=== PATIENT | female | born 1990 | race Caucasian/White ===

== ENCOUNTER 2019-07-08 02:18 | Inpatient (IN) | payer BC, SELFPAY ==
[2019-07-08] VITALS (47 sets, daily range): BP systolic 107–132; BP diastolic 52–75; PULSE 93–125; RESP 16; TEMP 36.6–37.2; O2SAT 82–100; BMI 46.2
--- NOTE | 2019-07-08 01:54 | HP.PCM_ITS ---
- Problem List (1) 37 weeks gestation of Status: Acute (2) Dichorionic diamniotic twin gestation Status: Acute (3) Hypothyroidism affecting Status: Acute (4) Rh negative state in antepartum period Status: Acute (5) Obesity affecting Status: Acute (6) Positive GBS test Status: Acute History Date of Admission: 07/08/19 Final VENICE: 07/29/19 Gestational age: 37 Weeks and 0 Days History of this : This is a 29 year-old, G 3, P 1011, at 37 weeks gestational age with di/di twins presenting with LOF at home. No vb, regular ctx's. +FM x 2. Surgical History: Surgical History (Last Updated 07/08/19 @ 01:[address] Anjelica Boyce, DO) History of D&C Z98.890 Allergies latex Allergy (Verified 06/24/14 23:10) Rash venom-honey bee [bee venom (honey bee)] Allergy (Verified 06/24/14 23:10) Swelling Home Medications: Home Medications Vits [Prenatabs FA] 1 tablet PO DAILY 06/24/14 Aspirin [Aspirin, Baby] 81 mg PO DAILY 07/08/19 Docusate Sodium [Colace] 100 mg PO DAILY 07/08/19 Thyroid,Pork [[place] Thyroid] 120 mg PO DAILY 07/08/19 Smoking Status: Never smoker Number of Fetus(es): 2 NST - FHR Rate Baby A Baseline: 150 Variability:: Moderate Accelerations:: None Decelerations:: None Uterine Activity:: No regular ctx's - FHR Rate Baby B Baseline: 150 Variability:: Moderate Accelerations:: None Decelerations:: None History Past Pregnancies: Past Pregnancies Delivery Date Name GA/ Weeks Outcome Route Wt Sex Labor Length Anesthesia Delivery Location Provider FOB 40 8 partial molar D&C Labs: GBS pos 3 hr GTT wnl Ab screen neg Hgb 11.5, Plt 308 Sequential screen neg Syphilis NR RI Hep B neg HIV NR Hep C neg GC/CT neg UDS neg Expected Infant Delivery Method: Spontaneous Vaginal Review of Systems Gynecological: Reports: - - +SROM for clear fluid about 2 hours ago. No VB, ctx. +FM x 2 Physical Exam Vitals: Vital Signs Pulse BP 118 H 131/71 H 07/08/19 01:49 07/08/19 01:49 General: Alert, No apparent distress HEENT: Atraumatic Abdomen: Soft, Non Tender, Gravid Extremities:: No edema Neurological: Neuro grossly intact GRAINER MACHINE: Normal external genitalia Assessment/Plan All Active Problems 37 weeks gestation of (Acute) Dichorionic diamniotic twin gestation (Acute) Hypothyroidism affecting (Acute) Rh negative state in antepartum period (Acute) Obesity affecting (Acute) Positive GBS test (Acute) This is a 29 year-old, with di/di twin at 37 wk gestation admitted with SROM for clear fluid at home. - Admit for routine intrapartum care - Most recent ultrasound: Baby A vertex with EFW 5lb 2 oz, Baby B breech with EFW 4 lb 11 oz, 8.3% EFW discordance - Epidural - PCN for GBS positive - Discussed risks of a breech vaginal delivery including but not limited to cord prolapse, head entrapment, injury, asphyxia. Discussed risks of a section including bleeding, infection, injury to surrounding organs. After discussion of r/b/a to a vaginal delivery with breech extraction of baby B and of a section, the patient desires to proceed with vaginal delivery and is comfortable with breech extraction of baby B - Will place intracervical saunders and start pit gtt
[2019-07-08 02:23] LABS: ROM Internal Control Test YES-OK TO RESULT pt. (Internal QC)
[2019-07-08 02:24] LABS: ROM Patient Test POSITIVE (Negative)
[2019-07-08] MEDS: Lactated Ringers 1,000 ML 50 ML IV (02:38)
[2019-07-08 02:52] LABS: Absolute Lymphocyte Count 2.97 X10^3/uL (0.83-4.51); Absolute Neutrophil Count 9.9 X10^3/uL (2.0-7.7); Basophil# 0.05 X10^3/uL; Basophil% 0.3 % (0-1); Eosinophil# 0.38 X10^3/uL; Eosinophils% 2.6 % (0-5); Hematocrit 32.1 % (37-47); Hemoglobin 9.9 g/dL (12.0-15.0); Lymphocyte # 2.97 X10^3/ul (4.0); Lymphocyte % 20.6 % (19-41); Mean Corp Hgb Conc 30.8 g/dL (32-36); Mean Corpuscular Hgb 23.4 pg (27.0-32.0); Mean Corpuscular Volume 75.9 fL (81-99); Mean Platelet Vol. 9.7 fl (6.2-12.0); Monocyte# 0.99 X10^3/uL; Monocyte% 6.9 % (0-10); NRBC Flagged by Analyzer 0 % (0-5); Neutrophil # 9.91 X10^3/uL (2.7-7.7); Neutrophil % 68.8 % (47-70); Platelet Count 264 K/mm3 (150-450); RBC Distribution Width CV 14.6 % (11.6-14.6); RBC Distribution Width SD 39.8 fl (35.1-43.9); Red Blood Count 4.23 M/mm3 (4.2-5.4); White Blood Count 14.4 K/mm3 (4.4-11.0)
[2019-07-08] MEDS: 0.9% Normal Saline Single 100 ML IV.SOLN. IY (03:30)
--- NOTE | 2019-07-08 03:31 | PCM.PN.BLA ---
Progress Note Cvx 1.5/60/-3, vertex. Intracervical saunders placed in usual fashion. Pt tolerated procedure well. STROKE Vital Signs/Narrative: Vital Signs Temp Pulse BP Pulse Ox 07/08/19 01:49 118 H 131/71 H 07/08/19 01:48 97.8 F 99
[2019-07-08] MEDS: Oxytocin 30 units/NS 500 ml 30 UNITS/500 ML IV.SOLN IV (03:38)
[2019-07-08] MEDS: Lactated Ringers 500 ML 999 ML IV ×2 (05:26→07:25)
[2019-07-08] MEDS: fentaNYL-bupivacaine (epidural) 100 ML BAG EPIDURAL (06:34)
[2019-07-08] MEDS: Ondansetron 4 MG/2 ML Vial IV (07:55)
--- NOTE | 2019-07-08 08:30 | PCM.PN.BLA ---
Progress Note At bedside to check on pt. Comfortable with epidural. After epidural baby B was having later decelerations, which have resolved with resuscitative measures. Cvx 5 cm dilated. FHT Category 1 of baby A, and Category 2 of baby B. Continue current management and anticipate vaginal delivery. STROKE Vital Signs/Narrative: Vital Signs Temp Pulse BP Pulse Ox 07/08/19 07:46 98.9 F 07/08/19 07:36 112 H 112/55 L 07/08/19 07:35 110 H 100 07/08/19 07:30 93 100 07/08/19 07:25 115 H 100 07/08/19 07:20 111 H 100 07/08/19 07:15 108 H 100 07/08/19 07:10 101 H 100 07/08/19 07:05 110 H 123/55 H 100 07/08/19 07:00 111 H 128/58 H 100 07/08/19 06:55 103 H 100 07/08/19 06:50 125 H 127/59 H 100 07/08/19 06:46 117 H 131/59 H 07/08/19 06:45 99 07/08/19 06:40 98 132/60 H 99 07/08/19 06:35 119 H 124/57 H 98 07/08/19 06:31 107 H 132/60 H 07/08/19 06:29 110 H 97 07/08/19 06:25 100 120/72 07/08/19 06:24 105 H 97 07/08/19 06:20 108 H 122/75 H 07/08/19 06:19 97 07/08/19 06:14 114 H 97 07/08/19 06:01 103 H 129/70 H 07/08/19 06:00 98.2 F 99 07/08/19 04:50 97 127/74 H 07/08/19 04:49 98.0 F 98
[2019-07-08] MEDS: Oxytocin 30 units/NS 500 ml 30 UNITS/500 ML IV.SOLN 334 UNITS IV (09:43)
--- NOTE | 2019-07-08 10:00 | PCM.OPRPT ---
Problem List (1) 37 weeks gestation of Status: Acute (2) Dichorionic diamniotic twin gestation Status: Acute (3) Hypothyroidism affecting Status: Acute (4) Rh negative state in antepartum period Status: Acute (5) Obesity affecting Status: Acute (6) Positive GBS test Status: Acute Report of Operation Date of Procedure: 07/08/19 Pre-Operative Diagnosis: 37 week gestation, di/di twin gestation, PROM Post-Operative Diagnosis: As above Surgery/Procedure Performed:: with breech extraction of baby B Description of Surgical Findings:: Baby A in vertex presentation. Baby B in footling breech presentation. Clear fluid x 2. Normal appearing placenta with 3 VC's. Type of Anesthesia:: Epidural Special Medications: None Specimen's removed: Placenta Drains: None Estimated Blood Loss (mL): 250 Description of Procedure: The patient was noted to be complete. She was taken back to the operating room for delivery. A transabdominal ultrasound was performed noting baby A in vertex presentation baby B in footling breech presentation. Dr. Moreno was present for assistance with the delivery. With a few pushes, the head of baby A was delivered in occiput anterior position. The anterior shoulder, posterior shoulder, followed by the body of infant was delivered without any force or delay. A viable male infant was delivered atraumatically and placed on maternal abdomen. The cord was clamped and cut after a 60 sec delay. An ultrasound was then performed noting baby B in breech presentation. A gentle external cephalic version was attempted, but this was unable to be achieved easily therefore it was aborted. The patient again gave verbal consent for breech extraction of baby B. The feet of baby B were grasped and the amniotic membranes were ruptured for clear fluid. With good maternal pushing effort, gentle traction was placed and the legs of baby B. The legs, torso, left arm, right arm, followed by head of the infant were delivered without any force or delay. Viable female infant was delivered atraumatically and placed on maternal abdomen. The cord was clamped and cut after about a 30 sec delay. With fundal massage the placenta was delivered intact. Uterus was explored x1. Fundus was firm and bleeding hemostatic. No lacerations were noted. Grafts/Implants Used: None - Complications None - Admit VTE Documentation VTE Present on Admission: No VTE Mechan Device Prophylaxis: SCD's Vaginal Delivery Maternal Presentation: Spontaneous Rupture of Membranes Method of Induction: Pitocin, [place] Bulb Surgery/ Procedure Performed: Spontaneous Vaginal Delivery Type of Anesthesia: Epidural Cord Entanglement: None Episiotomy Description: None Laceration: None Medications given after delivery: IV Pitocin Complications: None
[2019-07-08] MEDS: 0.9% Saline Lock 10 ML Syringe IV (12:15)
[2019-07-08] MEDS: Ibuprofen 600 MG Tablet PO (14:40)
[2019-07-09] VITALS (11 sets, daily range): BP systolic 113–123; BP diastolic 56–70; PULSE 86–99; RESP 16–18; TEMP 36.4–36.9; O2SAT 96–98
[2019-07-09] MEDS: Ibuprofen 600 MG Tablet PO ×3 (00:54→23:18)
[2019-07-09] MEDS: Thyroid 60 MG Tablet 120 MG PO (06:46)
--- NOTE | 2019-07-09 09:02 | PCM.PN.OB ---
Patient Problems: Active and Suspected Problems 37 weeks gestation of (Acute) Dichorionic diamniotic twin gestation (Acute) Hypothyroidism affecting (Acute) Rh negative state in antepartum period (Acute) Obesity affecting (Acute) Positive GBS test (Acute) Subjective: Doing well per pateitn and nursing staff. Ambulating and taking PO without difficulty. Voiding and passing flatus. Pain controlled. Tandum . Denies any headaches, visual changes, chest pain, shortness of breath, leg pain or increased vaginal clots. Lochia normal. Planning D/C home tomorrow. Objective: Vital Signs - 24 hr 07/08/19 20:24 07/08/19 20:33 07/09/19 00:00 Temperature 98.1 F 98.1 F Pulse Rate 94 98 91 Respiratory Rate 16 16 Blood Pressure 132/60 H Blood Pressure [BP] 132/60 H 113/70 Pulse Ox 98 98 98 07/09/19 00:14 07/09/19 00:15 07/09/19 03:15 Temperature 98.0 F Pulse Rate 91 93 99 Respiratory Rate 16 Blood Pressure 113/70 Blood Pressure [BP] 120/63 Pulse Ox 98 96 07/09/19 03:54 07/09/19 07:28 07/09/19 07:45 Temperature 98.4 F Pulse Rate 94 86 86 Respiratory Rate 18 Blood Pressure 120/63 120/70 Blood Pressure [BP] 120/70 Pulse Ox 98 07/09/19 14:16 07/09/19 14:20 Temperature 98.2 F Pulse Rate 89 90 Respiratory Rate 18 Blood Pressure 123/56 H Blood Pressure [BP] 123/56 H Pulse Ox 96 - Physical Exam Vitals/I&O's: Vital Signs Temp Pulse Resp BP Pulse Ox 98.4 F 86 18 120/70 98 07/09/19 07:45 07/09/19 07:45 07/09/19 07:45 07/09/19 07:45 07/09/19 07:45 Oxygen Delivery Method Room Air Weight: 278 lb Body Mass Index (BMI) 46.2 Intake and Output for Last 24 Hours 07/07/19 07/08/19 07/09/19 23:59 23:59 23:59 Intake Total 2680.70 / 2680.70 Output Total 2850 / 2850 Balance -169.30 / -169.30 General: Alert, Oriented x3, Cooperative HEENT: Atraumatic, Normocephalic Neck: Trachea Midline Lungs: Clear to auscultation, Normal air movement, No rhonchi, No wheeze Cardiovascular: Regular rate, Regular Rhythm, No murmurs Abdomen: Bowel Sounds Present, Soft - Fundus firm 2 below U Extremities: Edema - +1 non pitting bilaterally Psych/Mental Status: Normal Affect, Appropriate Microbiology Past 72 Hours 07/08/19 02:45 Mucosa - Nasopharyngeal Coronavirus COVID-19 PCR - Final Laboratory Results 07/08/19 13:30: Screen NEGATIVE, Baby's Blood Type A POSITIVE, Baby's JACOB NEGATIVE Current Medications Acetaminophen (Tylenol) 1,000 mg PO Q8H PRN PRN PRN Reason: Pain Score 1-3/10 Bisacodyl (Dulcolax) 10 mg RECTAL UD PRN PRN Reason: If no BM Dibucaine (Dibucaine) 1 applic TOPICAL TID PRN PRN; Protocol PRN Reason: Discomfort Hydrocortisone (Hytone) 1 applic TOPICAL TID PRN PRN; Protocol PRN Reason: Discomfort Ibuprofen (Motrin) 600 mg PO Q6H PRN PRN PRN Reason: Pain Score 1-3/10 Last Admin: 07/09/19 00:54 Dose: 600 mg Documented by: Methylergonovine Maleate (Methergine) 0.2 mg IM X1 PRN PRN Reason: Excess bleeding/uterine atony Ondansetron HCl (Zofran) 4 mg IV Q4H PRN PRN PRN Reason: Nausea Senna/Docusate Sodium (Senokot-S, [place]-Colace) 1 - 2 tablet PO DAILY PRN PRN PRN Reason: Constipation Simethicone (Mylicon) 80 mg PO PCHS PRN PRN Reason: Indigestion/Stomach pain Sodium Chloride () 5 - 15 ml IV UD PRN PRN Reason: SALINE FLUSH Last Admin: 07/08/19 12:15 Dose: 10 ml Documented by: Thyroid ([place] Thyroid) 120 mg PO DAILY@0600 ANASTASIYA Last Admin: 07/09/19 06:46 Dose: 120 mg Documented by: Medical Necessity - Tobacco Use Smoking Status: Never smoker Assessment/Plan All Active Problems 37 weeks gestation of (Acute) Dichorionic diamniotic twin gestation (Acute) Hypothyroidism affecting (Acute) Rh negative state in antepartum period (Acute) Obesity affecting (Acute) Positive GBS test (Acute) A:PPD #1 of Di/DI twins P: 1) Routine care 2) 3) Pain management 4) Vitals stable 5) Repeat CBC in am 6) Planning D/C home tomorrow.
[2019-07-09] MEDS: Senna/Docusate Sodium 1 Tablet PO (23:17)
[2019-07-10] VITALS (7 sets, daily range): BP systolic 120–127; BP diastolic 60–77; PULSE 87–105; RESP 14–16; TEMP 36.7–37.2; O2SAT 97–98
[2019-07-10] MEDS: Thyroid 60 MG Tablet 120 MG PO (05:32)
[2019-07-10 05:49] LABS: Absolute Lymphocyte Count 3.36 X10^3/uL (0.83-4.51); Basophil# 0.06 X10^3/uL; Basophil% 0.5 % (0-1); Eosinophil# 0.58 X10^3/uL; Eosinophils% 4.5 % (0-5); Hematocrit 31.9 % (37-47); Hemoglobin 9.6 g/dL (12.0-15.0); Lymphocyte # 3.36 X10^3/ul (4.0); Mean Corp Hgb Conc 30.1 g/dL (32-36); Mean Corpuscular Hgb 23.2 pg (27.0-32.0); Mean Corpuscular Volume 77.2 fL (81-99); Monocyte% 6.2 % (0-10); NRBC Flagged by Analyzer 0 % (0-5); Neutrophil # 8.03 X10^3/uL (2.7-7.7); Neutrophil % 62.3 % (47-70); Platelet Count 256 K/mm3 (150-450); RBC Distribution Width CV 15.2 % (11.6-14.6); RBC Distribution Width SD 41.7 fl (35.1-43.9); Red Blood Count 4.13 M/mm3 (4.2-5.4); White Blood Count 12.9 K/mm3 (4.4-11.0)
--- NOTE | 2019-07-10 08:43 | PN.OBGYN_ITS ---
Patient Problems: Active and Suspected Problems 37 weeks gestation of (Acute) Dichorionic diamniotic twin gestation (Acute) Hypothyroidism affecting (Acute) Rh negative state in antepartum period (Acute) Obesity affecting (Acute) Positive GBS test (Acute) Subjective: Doing well. Denies any complaints. Ambulating and voiding without difficulty. Lochia normal. Breast-feeding. Tolerating regular diet without nausea or vomiting. She denies lightheadedness, dizziness, chest pain, shortness of br eath, leg pain. Desires to go home today. - Physical Exam Vitals/I&O's: Vital Signs Temp Pulse Resp BP Pulse Ox 99.0 F 88 14 121/60 H 96 07/10/19 01:18 07/10/19 01:18 07/10/19 01:18 07/10/19 01:18 07/09/19 14:20 Oxygen Delivery Method Room Air Weight: 278 lb Body Mass Index (BMI) 46.2 Intake and Output for Last 24 Hours 07/08/19 07/09/19 07/10/19 23:59 23:59 23:59 Intake Total 2680.70 / 2680.70 Output Total 2850 / 2850 Balance -169.30 / -169.30 General: Alert, No apparent distress HEENT: Atraumatic Abdomen: Non-Distended, Obese Extremities: No Calf Tenderness Skin: No rashes Neurological: Neuro grossly intact Psych/Mental Status: Normal Affect, Appropriate Microbiology Past 72 Hours 07/08/19 02:45 Mucosa - Nasopharyngeal Coronavirus COVID-19 PCR - Final Laboratory Results 07/10/19 05:40: WBC 12.9 H, RBC 4.13 L, Hgb 9.6 L, Hct 31.9 L, MCV 77.2 L, MCH 23.2 L, MCHC 30.1 L, RDW Std Deviation 41.7, RDW Coeff of Orxy 15.2 H, Plt Count 256, MPV 10.0, Immature Gran % (Auto) 0.500, Neut % (Auto) 62.3, Lymph % (Auto) 26.0, [place] % (Auto) 6.2, Eos % (Auto) 4.5, Baso % (Auto) 0.5, Absolute Neuts (auto) 8.0 H, Absolute Lymphs (auto) 3.36, Nucleated RBC % 0 Current Medications Acetaminophen (Tylenol) 1,000 mg PO Q8H PRN PRN PRN Reason: Pain Score 1-3/10 Bisacodyl (Dulcolax) 10 mg RECTAL UD PRN PRN Reason: If no BM Dibucaine (Dibucaine) 1 applic TOPICAL TID PRN PRN; Protocol PRN Reason: Discomfort Hydrocortisone (Hytone) 1 applic TOPICAL TID PRN PRN; Protocol PRN Reason: Discomfort Ibuprofen (Motrin) 600 mg PO Q6H PRN PRN PRN Reason: Pain Score 1-3/10 Last Admin: 07/09/19 23:18 Dose: 600 mg Documented by: Methylergonovine Maleate (Methergine) 0.2 mg IM X1 PRN PRN Reason: Excess bleeding/uterine atony Ondansetron HCl (Zofran) 4 mg IV Q4H PRN PRN PRN Reason: Nausea Senna/Docusate Sodium (Senokot-S, [place]elam-Colace) 1 - 2 tablet PO DAILY PRN PRN PRN Reason: Constipation Last Admin: 07/09/19 23:17 Dose: 1 tablet Documented by: Simethicone (Mylicon) 80 mg PO PCHS PRN PRN Reason: Indigestion/Stomach pain Sodium Chloride () 5 - 15 ml IV UD PRN PRN Reason: SALINE FLUSH Last Admin: 07/08/19 12:15 Dose: 10 ml Documented by: Thyroid ([place] Thyroid) 120 mg PO DAILY@0600 ANASTASIYA Last Admin: 07/10/19 05:32 Dose: 120 mg Documented by: Medical Necessity - Tobacco Use Smoking Status: Never smoker Assessment/Plan All Active Problems 37 weeks gestation of (Acute) Dichorionic diamniotic twin gestation (Acute) Hypothyroidism affecting (Acute) Rh negative state in antepartum period (Acute) Obesity affecting (Acute) Positive GBS test (Acute) Patient is day 2 from a vaginal delivery of di-di-twins. She is doing well and meeting all milestones to go home. She desires to go home. Discharge instructions reviewed. Is breast-feeding both babies are doing well. plans for vasectomy.
--- NOTE | 2019-07-10 08:44 | DCINST_ITS ---
Discharge Diet: No Restrictions Discharge Activity: May Shower, May Take a Tub Bath May resume sexual activity in: 6 weeks Ice area for (Minutes): 15 Weight Bearing Status: Weight bearing as tolerated Lifting Restrictions: None Call your doctor if you observe: Fever of 101 or Higher, Inability to urinate, Inability to have a bowel movement, Using more than one pad per hour, Shortness of breath, Dizziness, Fainting spells, Chest pain, Increased palpitations (irregular heartbeat), Calf discomfort, Uncontrolled pain Additional Instructions: If you experience any of the following, contact your healthcare provider. * Bleeding that soaks a pad every hour for 2 hours * Fever 100.4 or higher * Unrelieved incision or abdominal pain * Swelling, redness, discharge or bleeding from your incision or episiotomy site * Your incision begins to separate * Problems urinating (including inability to urinate or burning while urinating). * Visual changes * Severe headache * Flu-like symptoms * Pain or redness in one of both of your breasts * Pain, warmth, tenderness or swelling in your legs, especially the calf area * Frequent nausea and vomiting * Symptoms of depression or anxiety If you experience any of the following, call 911 or go to the nearest Emergency Room. * Chest pain * Problems breathing * Seizure activity * Partial or complete paralysis of a body part, slurred speech, weakness or drooping of the face, or a sudden inability to walk or hold your balance Allergies/Adverse Reactions: Allergies latex Allergy (Verified 07/08/19 02:01) Rash venom-honey bee [bee venom (honey bee)] Allergy (Verified 07/08/19 02:01) Swelling Medications to take at Discharge Vits [Prenatabs FA] 1 tablet PO DAILY 06/24/14 Aspirin [Aspirin, Baby] 81 mg PO DAILY 07/08/19 Docusate Sodium [Colace] 100 mg PO DAILY 07/08/19 Thyroid,Pork [[place] Thyroid] 120 mg PO DAILY 07/08/19 When: In 6 weeks for visit. Can also schedule a 1-2 week virtual visit. Primary Care Physician: Miguelito Champion DO [Primary Care Provider] - Test Results: Test results from this visit will be discussed in further detail at your follow- up appointment, if applicable.
== END 2019-07-10 13:00 | disposition home or self-care (01) | DRG 807 ==
LOC: WPOUT 02:23 → WP 02:23
PROVIDERS: Advanced Practice Midwife; Admitting Provider Obstetrics & Gynecology; PCP Student in an Organized Health Care Education/Training Program; Referring Provider Obstetrics & Gynecology; Visit Provider Obstetrics & Gynecology
DX: O30.043 Twin pregnancy, dichorionic/diamniotic, third trimester (principal); O32.8XX2 Maternal care for other malpresentation of fetus, fetus 2; O99.824 Streptococcus B carrier state complicating childbirth; O76 Abnormality in fetal heart rate and rhythm complicating labor and delivery; O99.284 Endocrine, nutritional and metabolic diseases complicating childbirth; E03.9 Hypothyroidism, unspecified; O99.214 Obesity complicating childbirth; E66.9 Obesity, unspecified; Z79.82 Long term (current) use of aspirin; Z3A.37 37 weeks gestation of pregnancy; Z67.91 Unspecified blood type, Rh negative; Z37.2 Twins, both liveborn
CPT/HCPCS: 59025; 59050; 76815; 84112; 85025; 85461; 86850; 86870; 86900; 86901; 87635; 90384; 99218; G2023; J7120; A4216; G0378; J2405; J2790; U0004

== ENCOUNTER 2024-12-23 22:26 | Outpatient (CLI) | payer OTHER, SELFPAY ==
--- OUTSIDE RECORDS SUMMARY | 2024-12-23 22:34 | XMS RPT_ITS | CCD ---
Author Organization [facility] Care Team Providers Care Resident Physician Name Role Phone Miguelito Champion DO Primary Care Provider [phone] Miguelito Champion DO Primary Care Provider Azar GROUTER HELPER.CLINICAL THERAPISTKaren Unavailable Manju GROUTER HELPER.CLINICAL THERAPISTHumberto Unavailable Shorty GROUTER HELPER.CLINICAL THERAPISTKendal Unavailable Joe Boyce Attending Unavailable Joe Boyce Referring Unavailable Champion, Miguelito Primary Care Unavailable Joe Boyce Admitting Unavailable CHAMPION, MIGUELITO L Primary Care Unavailable CHAMPION, MIGUELITO Harshal Referring Unavailable FREYA VELAZQUEZ Attending Unavailable APRIL, JOSSIE Referring Unavailable CHAMPION, MIGUELITO L Primary Care Unavailable CHAMPION, MIGUELITO L Primary Care Unavailable KHOI, SHILOH Referring Unavailable APRIL, JOSSIE Referring Unavailable HCAMPION, MIGUELITO L Primary Care Unavailable CHAMPION, MIGUELITO L Primary Care Unavailable KHOI, SHILOH Referring Unavailable APRIL, JOSSIE Referring Unavailable CHAMPION, MIGUELITO L Primary Care Unavailable KRISTEN SMITH Attending Unavailable APRIL, JOSSIE Referring Unavailable CHAMPION, MIGUELITO L Primary Care Unavailable LAUREN MADERA Attending Unavailable KAREN AZAR Referring Unavailabl e CHAMPION, MIGUELITO Harshal Primary Care Unavailable CHAMPION, MIGUELITO L Primary Care Unavailable CHAMPION, MIGUELITO L Attending Unavailable CHAMPION, MIGUELITO L Referring Unavailable CHAMPION, MIGUELITO L Primary Care Unavailable KHOI, SHILOH Referring Unavailable JOE BOYCE Attending Unavailable CHAMPION, MIGUELITO L Primary Care Unavailable KHOI, SHILOH Referring Unavailable CHAMPION, MIGUELITO L Primary Care Unavailable CHAMPION, MIGUELITO L Primary Care Unavailable DENAE RENTERIA Attending Unavailable KRISTEN SMITH Referring Unavailable CHAMPION, MIGUELITO L Primary Care Unavailable KRISTEN SMITH Referring Unavailable KHOI, SHILOH Referring Unavailable WISWELL, JOE Attending Unavailable CHAMPION, MIGUELITO L Primary Care Unavailable APRIL, JOSSIE Referring Unavailable CHAMPION, MIGUELITO L Primary Care Unavailable CHAMPION, MIGUELITO L Primary Care Unavailable KRISTEN SMITH Attending Unavailable WISWELL, JOE Referring Unavailable CHAMPION, MIGUELITO L Primary Care Unavailable CHAMPION, MIGUELITO L Primary Care Unavailable CHAMPION, MIGUELITO L Referring Unavailable CHAMPION, MIGUELITO L Primary Care Unavailable CHAMPION, MIGUELITO L Referring Unavailable APRIL, JOSSIE Referring Unavailable WISWELL, JOE Attending Unavailable CHAMPION, MIGUELITO L Primary Care Unavailable APRIL, JOSSIE Referring Unavailable CHAMPION, MIGUELITO L Primary Care Unavailable WISWELL, JOE Attending Unavailable CHAMPION, MIGUELITO L Primary Care Unavailable CHAMPION, MIGUELITO L Primary Care Unavailable LONI, KRISTEN Attending Unavailable APRIL, JOSSIE Referring Unavailable CHAMPION, MIGUELITO L Primary Care Unavailable CHAMPION, MIGUELITO L Referring Unavailable CHAMPION, MIGUELITO L Primary Care Unavailable KHOI, SHILOH Attending Unavailable CHAMPION, MIGUELITO L Primary Care Unavailable CHAMPION, MIGUELITO L Primary Care Unavailable CHAMPION, MIGUELITO L Referring Unavailable KAREN AZAR Referring Unavailabl e CHAMPION, MIGUELITO L Primary Care Unavailable Allergies Allergy Classification Reported Allergen(s) Allergy Type Date of Onset Reaction(s) Facility Latex (1 source) Latex Substance Allergy 9 [facility] (20 sources) Latex; Translations: [LATEX] Propensity to adverse reactions 9 [facility] Work Phone: (20 sources) Bees; Translations: [BEES] Propensity to adverse reactions 9 [facility] Work Phone: (1 source) Latex Drug allergy (disorder) 0 [facility] (1 source) venom-honey bee Drug allergy (disorder) 0 [facility] Medications Current Medications Medication Drug Class(es) Dates Sig (Normalized) Sig (Original) aspirin 81 mg delayed release oral tablet (20 sources) Platelet Aggregation Inhibitor, Nonsteroidal Anti-inflammatory Drug Start: 05-23-2024 take 1 tablet by mouth once daily aspirin, enteric coated (ECOTRIN LOW STRENGTH) 81 mg EC tablet Indications: with uncertain dates in first trimester (HCC) Take 1 tablet by mouth once daily. 90 tablet 3 05/23/2024 Active End: 08-04-2022 take 1 tablet by mouth once daily aspirin, enteric coated (ASPIRIN, ENTERIC COATED) 81 mg EC tablet Take 81 mg by mouth once daily. 08/04/2022 Discontinued Comment on above: Take 81 mg by mouth once daily. cephalexin 500 mg oral capsule (1 source) Cephalosporin Antibacterial Start: 06-14-19 End: 06-21-19 take 1 capsule by mouth three times daily cephALEXin (KEFLEX) 500 mg capsule Take 1 capsule by mouth three times daily for 7 days. 21 capsule 0 06/13/2022 06/20/2022 Active Comment on above: Take 1 capsule by [facility] three times daily for 7 days. cetirizine hydrochloride 10 mg oral tablet (20 sources) Histamine-1 Receptor Antagonist Start: 06-13-19 cetirizine (ZYRTEC) 10 mg tablet 06/13/2023 Active L.acid,para-B.bifidum- S.therm (QUAD-PROBIOTIC) 8 billion cell cap (20 sources) take 8 capsules by mouth once daily L.acid,para-B.bifi dum-S.therm (QUAD-PROBIOTIC) 8 billion cell cap Take by mouth once daily. Active take 8 capsules by m outh once daily L.acid,para-B.bifidum-S.therm (QUAD-PROB IOTIC) 8 billion cell cap Take by mouth once daily. 0 Active magnesium oxide 500 mg oral tablet (20 sources) take 1 tablet by mouth once daily Magnesium Oxide 500 mg magnesium tab Take 500 mg by mouth once daily. Active NALTREXONE HCL, BULK, MISC (14 sources) End: 07-21-2023 NALTREXONE HCL, BULK, MISC 1 tablet once daily. 6 mg compound 0 07/21/2023 Discontinued NALTREXONE HCL, BULK, MISC 1 tablet once daily. 6 mg compound 0 Active Comment on above: 1 tablet once daily. 6 mg compound PNV no.95/ferrous fum/folic ac ( ORAL) (20 sources) take 2 capsules by mouth once daily before mealtime PNV no.95/ferrous fum/folic ac ( ORAL) Take 2 capsules by mouth once daily. Active thyroid (detention) 120 mg oral tablet (20 sources) Start: 10-16-2024 thyroid ([employer]CH[employer] THYROID) 120 mg tablet Take 1 tablet PO 3 days a week and 2 tablets PO 4 days a week 90 tablet 3 10/16/2024 Active Start: 08-23-2024 End: 10-11-2024 thyroid (LAB[employer]CHARD THYROID) 120 mg tablet Take 1 tablet PO 3 days a week and 2 tablets PO 4 days a week 08/23/2024 10/11/2024 Discontinued Start: 07-15-2024 End: 08-23-2024 thyroid (LABORER ORCHARD THYROID) 120 mg tablet Take 1 tablet PO 4 days a week and 2 tablets PO 3 days a week 07/15/2024 08/23/2024 Discontinued Start: 05-26-2024 End: 07-15-2024 thyroid (LABOR[employer] ORCHARD THYROID) 120 mg tablet Take 1 tablet PO 5 days a week and 2 tablets PO 2 days a week 140 tablet 3 05/26/2024 07/15/2024 Discontinued Start: 04-02-2023 End: 05-26-2024 take 2 tablets by mouth once daily LAB[employer]CHARD THYROID 60 mg tablet Indications: Acquired hypothyroidism TAKE 2 TABLETS BY MOUTH EVERY DAY 180 tablet 3 04/14/2024 05/26/2024 Discontinued Start: 09-25-2022 End: 03-31-2023 take 2 tablets by mouth once daily [employer] THYROID 60 mg tablet Indications: Acquired hypothyroidism TAKE 2 TABLETS BY MOUTH EVERY DAY 60 tablet 3 10/13/2022 03/31/2023 Discontinued Start: 07-05-2022 End: 09-25-2022 LABOR[employer] ORCHARD THYROID 60 mg tablet Silvia cations: Acquired hypothyroidism Take 1 tablet 2 days a week and 2 tablets 5 days a week 144 tablet 3 07/05/2022 09/25/2022 Discontinued Start: 07-08-2021 End: 07-05-2022 LABOR[employer] ORCHARD THYROID 60 mg tablet Silvia cations: Acquired hypothyroidism Take 1 tablet 4 days a week and 2 tablets 3 days a week 120 tablet 2 12/09/2021 07/05/2022 Discontinued Start: 06-15-2021 LABORER ORCHARD THYROID 60 mg Indications: Acquired hypothyroidism Take 1 tablet 5 days a week and 2 tablets 2 days a week 108 tablet 1 06/15/2021 Active Start: 05-23-2021 End: 06-13-2021 LABORER ORCHARD THYROID 60 mg Indications : Acquired hypothyroidism Take 1 tablet 5 days a week and 2 tablets 2 days a week 108 tablet 1 05/23/2021 06/13/2021 Discontinued Start: 05-18-2021 End: 05-21-2021 LABOR[employer] ORCHARD THYROID 60 mg Indications : Acquired hypothyroidism Take 1 tablet 5 days a week and 2 tablets 2 days a week 34 tablet 0 05/18/2021 05/21/2021 Discontinued Start: 05-02-2021 End: 05-18-2021 LABORER ORCHARD THYROID 60 mg Indications : Acquired hypothyroidism Take 1 tablet 1 days a week and 2 tablets 6 days a week 28 tablet 0 05/04/2021 05/18/2021 Discontinued Start: 01-14-2020 End: 04-29-2021 LABORER ORCHARD THYROID 60 mg Indications : Acquired hypothyroidism Take 1 tablet 1 days a week and 2 tablets 6 days a week 28 tablet 0 08/30/2020 04/29/2021 Discontinued Comment on above: Take 1 tablet 1 days a week and 2 tablets 6 days a week Take 1 tablet 5 days a week and 2 tablets 2 days a week Take 1 tablet 4 days a week and 2 tablets 3 days a week Take 1 tablet 2 days a week and 2 tablets 5 days a week Take 2 tablets daily . TAKE 2 TABLETS BY [facility] EVERY DAY Completed/Discontinued Medications Medication Drug Class(es) Dates Sig (Normalized) Sig (Original) biotin 10 mg oral capsule (13 sources) End: 08-04-2022 Biotin 10,000 mcg cap 08/04/2022 Discontinued Breast Pump (1 source) Start: 05-30-2019 End: 05-29-2020 Breast Pump Use as directed 1 Each 05/30/2019 05/29/2020 cholecalciferol 0.05 mg oral capsule (20 sources) Vitamin D End: 05-23-2024 Cholecalciferol, Vitamin D3, 50 mcg (2,000 unit) cap Take by mouth once daily. 05/23/2024 Discontinued Comment on above: Take by mouth once d aily. clotrimazole 10 mg/ml topical cream (13 sources) Azole Antifungal Start: 08-20-2019 End: 08-04-2022 clotrimazole (CLOTRIMAZOLE AF) 1 % cream Indications: nipple pain To apply small amount to nipple after each feed. Prior to each feeding, remove the medication using coconut or olive oil. Continue until symptoms have improved for 2 days. 28 g 08/20/2019 08/04/2022 Discontinued Comment on above: To apply small amoun t to nipple after each feed. Prior to each feeding, remove the medication using coconut or olive oil. Continue until symptoms have improved for 2 days. docusate sodium 100 mg oral capsule (13 sources) End: 08-04-2022 take 1 capsule by mouth once daily docusate sodium (COLACE) 100 mg capsule Take 100 mg by mouth once daily. 08/04/2022 Discontinued Comment on above: Take 100 mg by mouth once daily. [id number] 0.3 ml EPINEPHrine 1 mg/ml auto-injector (20 sources) alpha-Adrenergic Agonist, beta-Adrenergic Agonist, Catecholamine Start: 04-08-2012 End: 05-23-2024 EPINEPHrine (EPIPEN) 0.3 mg/0.3 mL (1:1,000) PnIj Use as needed following a bee sting 2 Each 1 04/08/2012 05/23/2024 Discontinued Comment on above: Use as needed follow ing a bee sting mebendazole 100 mg chewable tablet (16 sources) Antihelminthic Start: 09-24-2023 End: 05-23-2024 take 1 tablet by mouth once, then take 1 tablet by mouth every other week mebendazole (VERMOX) 100 mg chewable tablet Take 1 tablet PO once. Repeat dose in 2 weeks 2 tablet 09/24/2023 05/23/2024 Discontinued multivit with calcium,iron,min (WOMEN'S DAILY MULTIVITAMIN ORAL) (18 sources) End: 05-23-2024 multivit with calcium,iron,min (WOMEN'S DAILY MULTIVITAMIN ORAL) Take by mouth once daily. 05/23/2024 Discontinued multivit with ca lcium,iron,min (WOMEN'S DAILY MULTIVITAMIN ORAL) Take by mouth once daily. Active multivit with ca lcium,iron,min (WOMEN'S DAILY MULTIVITAMIN ORAL) Take by mouth once daily. 0 Active naltrexone hydrochloride 50 mg oral tablet (13 sources) Opioid Antagonist End: 08-04-2022 take 1 capsule by mouth once daily at bedtime naltrexone 4.5 mg capsule Take 4.5 mg by mouth daily at bedtime. 08/04/2022 Discontinued (Course of therapy completed) Comment on above: Take 4.5 mg by mouth daily at bedtime. Jwokvajq-Ck-Epp-Fe-F A ( VITAMIN) tab (9 sources) take 1 tablet by mouth once Bspkcwwn-Pz-Aqi-Fe -FA ( VITAMIN) tab Take 1 tablet by mouth. 0 Active Comment on above: Take 1 tablet by yadira th. Qauypplu-Lu-Wpg-Fe-F A tab (4 sources) End: 08-04-2022 take 1 tablet by mouth once Ztdsxyqx-Ns-Asg-Fe -FA tab Take 1 tablet by mouth. 08/04/2022 Discontinued (Course of therapy completed) End: 08-04-2022 take 1 tablet by mouth once Zfflzokz-Wq-Pxd-Fe-FA tab Take 1 tablet by mouth. 0 08/04/2022 Discontinued (Course of therapy completed) take 1 tablet by yadira th once Zbrtkrbm-Gy-Uqz-Fe-FA tab Take 1 tablet by mouth. 0 Active Comment on above: Take 1 tablet by yadira th. pumpkin seed extract-soy germ (AZO BLADDER CONTROL) 300 mg cap (3 sources) End: 09-22-2022 pumpkin seed extract-soy germ (AZO BLADDER CONTROL) 300 mg cap Take by mouth. 0 09/22/2022 Discontinued pumpkin seed ext ract-soy germ (AZO BLADDER CONTROL) 300 mg cap Take by mouth. 0 Active Comment on above: Take by mouth. tirzepatide (MOUNJARO) 10 mg/0.5 mL pen injector (12 sources) Start: 04-23-2024 End: 05-23-2024 tirzepatide (MOUNJARO) 10 mg/0.5 mL pen injector Indications: Class 2 obesity with body mass index (BMI) of 37.0 to 37.9 in adult, unspecified obesity type, unspecified whether serious comorbidity present Inject 10 mg subcutaneously one time a week. 3 mL 3 04/23/2024 05/23/2024 Discontinued Start: 04-23-2024 tirzepatide (M OUNJARO) 10 mg/0.5 mL pen injector Indications: Class 2 obesity with body mass index (BMI) of 37.0 to 37.9 in adult, unspecified obesity type, unspecified whether serious comorbidity present Inject 10 mg subcutaneously one time a week. 3 mL 3 04/23/2024 Active Start: 12-19-2023 End: 04-23-2024 tirzepatide (MOUNJARO) 10 mg /0.5 mL pen injector Indications: Class 2 obesity with body mass index (BMI) of 37.0 to 37.9 in adult, unspecified obesity type, unspecified whether serious comorbidity present Inject 10 mg subcutaneously one time a week. 3 mL 3 12/19/2023 04/23/2024 Discontinued Start: 12-19-2023 tirzepatide (M OUNJARO) 10 mg/0.5 mL pen injector Indications: Class 2 obesity with body mass index (BMI) of 37.0 to 37.9 in adult, unspecified obesity type, unspecified whether serious comorbidity present Inject 10 mg subcutaneously one time a week. 3 mL 3 12/19/2023 Active tirzepatide, weight loss (ZEPBOUND) 7.5 mg/0.5 mL pen injector (8 sources) Start: 04-04-2023 End: 12-19-2023 inject 7.5 mg by subcutaneous injection every week tirzepatide, weight loss (ZEPBOUND) 7.5 mg/0.5 mL pen injector Inject 7.5 mg subcutaneously one time a week. 04/04/2023 12/19/2023 Discontinued Start: 04-04-2023 inject 7.5 mg by sub cutaneous injection every week tirzepatide, weight loss (ZEPBOUND) 7.5 mg/0.5 mL pen injector Inject 7.5 mg subcutaneously one time a week. 04/04/2023 Active Start: 04-04-2023 inject 7.5 mg by sub cutaneous injection every week tirzepatide, weight loss (ZEPBOUND) 7.5 mg/0.5 mL pen injector Inject 7.5 mg subcutaneously one time a week. 0 04/04/2023 Active Problems Active Problems Problem Classification Problem Date Documented Da te Episodic/Chronic Diseases of white blood cells (1 source) Leukocytosis; Translations: [Elevated white blood cell count, unspecified] 08-08-2023 Chronic Other complications of (20 sources) Obesity; Translations: [Obesity complicating , unspecified trimester] Onset: 03-14-2018 Resolved: 05-23-2024 12-19-2018 Chronic Other complications of (7 sources) Maternal obesity complicating , childbirth and the puerperium, antepartum; Translations: [Obesity complicating , second trimester] 07-08-2024 Chronic Other complications of (1 source) Obesity complicating , third trimester; Translations: [Obesity affecting in third trimester, unspecified obesity type (HCC)] Onset: 11-12-2024 Chronic Other complications of (1 source) Obesity complicating , second trimester; Translations: [Obesity affecting in second trimester, unspecified obesity type (HCC)] Onset: 10-15-2024 Chronic Other complications of (20 sources) High risk ; Translations: [Supervision of elderly multigravida, unspecified trimester] Onset: 05-23-2024 05-23-2024 Episodic Other complications of (4 sources) Multigravida of advanced maternal age; Translations: [Supervision of elderly multigravida, second trimester] 07-25-2024 Episodic Other complications of (1 source) Supervision of elderly multigravida, unspecified trimester; Translations: [High-risk , multigravida of advanced maternal age, antepartum (HCC)] Onset: 10-15-2024 Episodic Other complications of (1 source) Supervision of elderly multigravida, third trimester; Translations: [AMA (advanced maternal age) multigravida 35+, third trimester (HCC)] Onset: 11-12-2024 Episodic Other complications of (1 source) Supervision of high risk , unspecified, second trimester; Translations: [Supervision of high risk in second trimester (HCC)] Onset: 10-15-2024 Episodic Other complications of (1 source) Supervision of elderly multigravida, second trimester; Translations: [AMA (advanced maternal age) multigravida 35+, second trimester (HCC)] Onset: 10-15-2024 Episodic Other nutritional; endocrine; and metabolic disorders (1 source) Body mass index (BMI) 37.0-37.9, adult; Translations: [Class 2 obesity without serious comorbidity with body mass index (BMI) of 37.0 to 37.9 in adult, unspecified obesity type] Onset: 07-21-2023 Chronic Residual codes; unclassified (2 sources) Gestation period, 7 weeks; Translations: [Less than 8 weeks gestation of ] 05-23-2024 Episodic Residual codes; unclassified (2 sources) Gestation period, 13 weeks; Translations: [13 weeks gestation of ] 07-08-2024 Episodic Residual codes; unclassified (2 sources) Gestation period, 16 weeks; Translations: [16 weeks gestation of ] 07-25-2024 Episodic Residual codes; unclassified (7 sources) Gestation period, 20 weeks; Translations: [20 weeks gestation of ] Onset: 08-23-2024 08-23-2024 Episodic Residual codes; unclassified (1 source) Gestation period, 28 weeks; Translations: [28 weeks gestation of ] 10-15-2024 Episodic Residual codes; unclassified (1 source) Gestation period, 30 weeks; Translations: [30 weeks gestation of ] 10-29-2024 Episodic Residual codes; unclassified (1 source) 37 weeks gestation of ; Translations: [37 weeks gestation of (HCC)] Onset: 12-18-2024 Episodic Residual codes; unclassified (1 source) 36 weeks gestation of ; Translations: [36 weeks gestation of (HCC)] Onset: 12-18-2024 Episodic Residual codes; unclassified (1 source) 34 weeks gestation of ; Translations: [34 weeks gestation of (HCC)] Onset: 11-27-2024 Episodic Residual codes; unclassified (1 source) 30 weeks gestation of ; Translations: [30 weeks gestation of (HCC)] Onset: 10-29-2024 Episodic Residual codes; unclassified (1 source) 28 weeks gestation of ; Translations: [28 weeks gestation of (HCC)] Onset: 10-15-2024 Episodic Superficial injury; contusion (1 source) Cat scratch injury; Translations: [Abrasion of left forearm, initial encounter] Episodic Thyroid disorders (20 sources) Acquired hypothyroidism; Translations: [Hypothyroidism, unspecified] Onset: 01-21-2015 Resolved: 01-23-2019 Chronic Unclassified (20 sources) [facility] - COMMON Onset: 05-20-2024 05-20-2024 Unclassified (1 source) Twin with single intrauterine , first trimester, fetus 1 (HCC) 07-08-2024 Unclassified (1 source) Class 2 obesity without serious comorbidity with body mass index (BMI) of 37.0 to 37.9 in adult, unspecified obesity type; Translations: [Class 2 obesity without serious comorbidity with body mass index (BMI) of 37.0 to 37.9 in adult, unspecified obesity type] Onset: 07-21-2023 Past or Other Problems Problem Classification Problem Date Documented Date Episodic/Chronic Bacterial infection; unspecified site (20 sources) Bacteria present; Translations: [Streptococcus, group B, as the cause of diseases classified elsewhere] Onset: 06-30-2019 Resolved: 05-23-2024 06-30-2019 Episodic Diabetes mellitus without complication (20 sources) Impaired fasting glycemia; Translations: [Impaired fasting glucose] Onset: 10-27-2015 Resolved: 11-01-2015 11-01-2015 Episodic Diseases of mouth; excluding dental (20 sources) Angular cheilitis; Translations: [Diseases of lips] Onset: 12-24-2015 Resolved: 03-28-2018 03-28-2018 Episodic Immunizations and screening for infectious disease (6 sources) Patient encounter status; Translations: [Encounter for screening for infections with a predominantly sexual mode of transmission] Onset: 05-23-2024 05-23-2024 Episodic Malaise and fatigue (20 sources) Malaise and fatigue; Translations: [Other malaise] Onset: 07-23-2015 Resolved: 03-28-2018 03-28-2018 Episodic Other complications of (20 sources) Hypothyroidism in ; Translations: [Endocrine, nutritional and metabolic diseases complicating , unspecified trimester] Onset: 10-14-2013 12-19-2018 Episodic Other complications of (20 sources) RhD negative; Translations: [Other specified related conditions, unspecified trimester] Onset: 11-07-2013 12-19-2018 Episodic Other complications of (20 sources) Excessive weight gain in , unspecified trimester; Translations: [Edema or excessive weight gain in , without mention of hypertension, delivered, with or without mention of antepartum complication] Onset: 03-14-2018 Resolved: 05-23-2024 12-19-2018 Episodic Other complications of (20 sources) Thyroid disease in ; Translations: [Endocrine, nutritional and metabolic diseases complicating , unspecified trimester] Onset: 03-14-2018 Resolved: 03-28-2018 03-28-2018 Episodic Other complications of (20 sources) History of with abortive outcome; Translations: [Supervision of with other poor reproductive or obstetric history, first trimester] Onset: 12-19-2018 Resolved: 01-23-2019 01-23-2019 Episodic Other complications of (2 sources) Nausea and vomiting; Translations: [Vomiting of , unspecified] Onset: 12-19-2018 Resolved: 05-30-2019 05-30-2019 Episodic Other complications of (20 sources) Vomiting of , unspecified; Translations: [Unspecified vomiting of , unspecified as to episode of care or not applicable] Onset: 12-19-2018 Resolved: 05-30-2019 05-30-2019 Episodic Other complications of (20 sources) Continuing after intrauterine of one fetus or more, first trimester, fetus 1; Translations: [Twin with loss and retention of one fetus, antepartum condition or complication] Onset: 06-05-2024 07-08-2024 Episodic Other complications of (1 source) Endocrine, nutritional and metabolic diseases complicating , third trimester; Translations: [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 (HCC)] Onset: 12-19-2018 Episodic Other complications of (1 source) Endocrine, nutritional and metabolic diseases complicating , second trimester; Translations: [Hypothyroidism affecting in second trimester (HCC)] Onset: 12-19-2018 Episodic Other complications of (1 source) Other specified related conditions, unspecified trimester; Translations: [Rh negative state in antepartum period (HCC)] Onset: 12-19-2018 Episodic Other and delivery including normal (20 sources) Dichorionic diamniotic twin ; Translations: [Twin , dichorionic/diamnioti c, first trimester] Onset: 11-06-2013 Resolved: 08-10-2014 01-23-2019 Episodic Other screening for suspected conditions (not mental disorders or infectious disease) (3 sources) Cancer cervix screening status; Translations: [Encounter for screening for malignant neoplasm of cervix] Onset: 07-04-2024 05-23-2024 Episodic Postabortion complications (20 sources) Partial hydatidiform mole; Translations: [Other complications following an ectopic and molar ] Onset: 04-05-2018 Resolved: 01-23-2019 01-23-2019 Episodic Residual codes; unclassified (20 sources) FH: Congenital heart disease; Translations: [Family history of other congenital malformations, deformations and chromosomal abnormalities] Onset: 03-14-2018 12-19-2018 Episodic Residual codes; unclassified (20 sources) Contact with and (suspected) exposure to mold (toxic); Translations: [Contact with and (suspected) exposure to mold] Onset: 08-03-2016 Resolved: 03-28-2018 03-28-2018 Episodic Residual codes; unclassified (1 source) Unspecified blood type, Rh negative; Translations: [Rh negative state in antepartum period (HCC)] Onset: 12-19-2018 Episodic Residual codes; unclassified (1 source) 24 weeks gestation of ; Translations: [24 weeks gestation of (HCC)] Onset: 09-18-2024 Episodic Residual codes; unclassified (1 source) 20 weeks gestation of ; Translations: [20 weeks gestation of (HCC)] Onset: 08-23-2024 Episodic Residual codes; unclassified (1 source) 16 weeks gestation of ; Translations: [16 weeks gestation of (HCC)] Onset: 07-25-2024 Episodic Residual codes; unclassified (1 source) 13 weeks gestation of ; Translations: [13 weeks gestation of ([facility])] Onset: 07-25-2024 Episodic Residual codes; unclassified (1 source) Less than 8 weeks gestation of ; Translations: [7 weeks gestation of ([facility])] Onset: 06-05-2024 Episodic Screening and history of mental health and substance abuse codes (2 sources) Encounter for screening for depression; Translations: [Encounter for screening examination for other mental health and behavioral disorders] Onset: 08-23-2024 Episodic Results Test Name Value Interpretation Reference Range Facil freddy Caro 12-16-2024 CNPN Telephone (FAMPWS) NENA LEIVA ([id number]) 1990 F Date Time Provider Department 12/16/24 CHAMPIONMIGUELITO CARROLL FAMPWS During your visit today, we recorded the following information about you: Akira Miguelito CaputoDO 12/16/2024 11:20 AM Signed Pleas inform patient that her free t4 is still low but slightly improved, TSH is improving. Make sure she is taking her LAB[employer]CHARD thyroid correctly. I know she is getting closer to delivery date. Can try to take 2 extra tablets a week such as extra on Mon and Wed each week of her [employer] thyroid Miguelito DO Natasha Persaud Susan LPN 12/16/2024 11:24 AM Signed Pt. informed via My chart Allergies As of Date: 12/16/2024 Noted Allergy Reaction BEES 07/07/2008 7 - Swelling LATEX 07/07/2008 4 - Hives Date Reviewed: 12/11/2024 Reviewed by: Tasha Carias MA - Fully Assessed Prescriptions as of 12/16/2024 - thyroid (LABORER ORCHARD THYROID) 120 mg tablet Take 1 tablet PO 3 days a week and 2 tablets PO 4 days a week - aspirin, enteric coated (ECOTRIN LOW STRENGTH) 81 mg EC tablet Take 1 tablet by mouth once daily. - PNV no.95/ferrous fum/folic ac ( ORAL) Take 2 capsules by mouth once daily. - Magnesium Oxide 500 mg magnesium tab Take 500 mg by mouth once daily. - L.acid,para-B.bifidum- S.therm (QUAD-PROBIOTIC) 8 billion cell cap Take by mouth once daily. Problem List As Of Date 12/16/2024 Noted Resolved Hypothyroidism complicating [O99.280,*10/14/2013 Normal , first [Z34.00] 11/06/2013 08/10/2014 Rh negative state in antepartum period [O26.899*11/07/2013 Acquired hypothyroidism [E03.9] 01/21/2015 01/23/2019 Malaise and fatigue [R53.81, R53.83] 07/23/2015 03/28/2018 Multinodular goiter [E04.2] 08/26/2015 Impaired fasting glucose [R73.01] 10/27/2015 11/01/2015 Angular cheilitis [K13.0] 12/24/2015 03/28/2018 Well adult exam [Z00.00] 12/24/2015 03/28/2018 Thyroiditis [E06.9] 03/24/2016 03/28/2018 Mold exposure [Z77.120] 08/03/2016 03/28/2018 Disorder of thyroid, antepartum [O99.280, E07.9]03/14/2018 03/28/2018 Obesity in [O99.210] 03/14/2018 03/28/2018 Excessive weight gain during , antepar*03/14/2018 03/28/2018 Family history of congenital heart defect [Z82.*03/14/2018 Patient request for diagnostic testing [Z01.89] 03/14/2018 05/30/2019 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] 04/05/2018 01/23/2019 Routine physical examination [Z00.00] 08/07/2018 01/23/2019 Hypothyroidism, acquired [E03.9] 08/07/2018 History of loss in prior , c*12/19/2018 01/23/2019 Nausea and vomiting in [O21.9] 12/19/2018 05/30/2019 Excessive weight gain during , deliver*12/19/2018 05/23/2024 Obesity in , antepartum (HCC) [O99.210]12/19/2018 05/23/2024 Twin gestation in first trimester (HCC) [O30.00*01/23/2019 Positive GBS test [B95.1] 06/30/2019 05/23/2024 Class 2 obesity with body mass index (BMI) of 3*07/21/2023 Wellness examination [Z00.00] 07/21/2023 05/23/2024 Acquired hypothyroidism [E03.9] 07/21/2023 High-risk , multigravida of advanced m*05/23/2024 Twin with single intrauterine , *06/05/2024 Wellness examination [Z00.00] 08/23/2024 Encounter Status:Closed by LISA LEÓN LPN on 12/16/24 Normal [facility] ROUTINE, GROUP B ST REPTOCOCCUS BY PCRon 12-11-2024 ROUTINE, GROUP B STREPTOCOCCUS BY PCR Not detected Normal [facility] Comment on above: Performed By: #### 7 3752-8, 5195-3, 27828-6 #### [facility] CLIA [id number] [address] [place] [address] [place] T4 Free SerPl-mCncon 025 Free T4 [Mass/Vol] 0.8 ng/dL Low 0.9-1.7 [facility] Comment on above: Order Comment: Speci men Type: BLOOD SPECIMEN Ordering Facility: [facility] Address: [address] [place] [address] Performed By: #### 7 3752-8, 5195-3, 56633-1 #### [facility] CLIA [id number] [address] [place] [address] [place] TSH SerPl-aCncon 12-11-2024 TSH Qn 0.335 m[IU]/L Normal 0.270-4.200 [facility] Comment on above: Order Comment: Selam walsh Type: BLOOD SPECIMEN Ordering Facility: [facility] Address: [address] [place] [address] Result Comment: If t he patient is , TSH reference range varies by gestational period: First Trimester (weeks 9-12): 0.180-2.990 mIU/L Second Trimester: 0.110-3.980 mIU/L Third Trimester: 0.480-4.710 mIU/L Homer Caputo et al. A Practical Approach for the Verifications and Determination of Site- and Trimester-Specific Reference Intervals for Thyroid Function tests in . Thyroid, 2019:29:3:412-420. Moose Lopez, et al. 2017 Guidelines of the [place] [employer] Association for the Diagnosis and Management of Thyroid Disease during and the . Thyroid, 2017:27:3:315-389. Performed By: #### 7 3752-8, 5195-3, 61182-4 #### [facility] CLIA [id number] [address] [place] [address] [place] CNPNon 11-13-2024 [facility] LEIV[facility] ([id number]) 1990 F Date Time Provider Department 11/13/24 MIGUELITO CHAMPIONWS During your visit today, we recorded the following information about you: Crystal Giraldo MA 11/13/2024 1:19 PM Signed Please see pt message I was sick for a few days over this last month so I had not adjusted my dose after getting clarification from you and I did miss at least 1-2 days of what would have been my usual scheduled dose. I can go up to the dose increase for this month and recheck in 4 weeks if that works? Sorry I?m usually right on top of things but this month got a little crazy. Thanks! Miguelito Carpenter DO 11/17/2024 5:06 PM Signed Please let her know that that is okay as below requesting Orders replaced for labs DO Ralph Skelton Amanda, RN 11/17/2024 6:37 PM Signed Called and left a voicemail for the Patient to call back and ask for a nurse to receive the providers message. GILMAR Monteiro Kathryn, MA 11/18/2024 11:06 AM Signed Notified of below via [employer]. Glo Smith MA Allergies As of Date: 11/13/2024 Noted Allergy Reaction BEES 07/07/2008 7 - Swelling LATEX 07/07/2008 4 - Hives Date Reviewed: 11/12/2024 Reviewed by: Freya Velazquez MD - Fully Assessed Reason for Visit: Patient Question [1478] Primary Visit Diagnosis:Multinodular goiter [E04.2] Order(s):THYROID STIMULATING HORMONE [SQTSH] Order #: [id number] FUTURE T4 FREE/FREE THYROXINE [SQFT4] Order #: [id number] FUTURE Prescriptions as of 11/18/2024 - thyroid (LABORER ORCHARD THYROID) 120 mg tablet Take 1 tablet PO 3 days a week and 2 tablets PO 4 days a week - aspirin, enteric coated (ECOTRIN LOW STRENGTH) 81 mg EC tablet Take 1 tablet by mouth once daily. - PNV no.95/ferrous fum/folic ac ( ORAL) Take 2 capsules by mouth once daily. - Magnesium Oxide 500 mg magnesium tab Take 500 mg by mouth once daily. - L.acid,para-B.bifidum- S.therm (QUAD-PROBIOTIC) 8 billion cell cap Take by mouth once daily. Problem List As Of Date 11/13/2024 Noted Resolved Hypothyroidism complicating [O99.280,*10/14/2013 Normal , first [Z34.00] 11/06/2013 08/10/2014 Rh negative state in antepartum period [O26.899*11/07/2013 Acquired hypothyroidism [E03.9] 01/21/2015 01/23/2019 Malaise and fatigue [R53.81, R53.83] 07/23/2015 03/28/2018 Multinodular goiter [E04.2] 08/26/2015 Impaired fasting glucose [R73.01] 10/27/2015 11/01/2015 Angular cheilitis [K13.0] 12/24/2015 03/28/2018 Well adult exam [Z00.00] 12/24/2015 03/28/2018 Thyroiditis [E06.9] 03/24/2016 03/28/2018 Mold exposure [Z77.120] 08/03/2016 03/28/2018 Disorder of thyroid, antepartum [O99.280, E07.9]03/14/2018 03/28/2018 Obesity in [O99.210] 03/14/2018 03/28/2018 Excessive weight gain during , antepar*03/14/2018 03/28/2018 Family history of congenital heart defect [Z82.*03/14/2018 Patient request for diagnostic testing [Z01.89] 03/14/2018 05/30/2019 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] 04/05/2018 01/23/2019 Routine physical examination [Z00.00] 08/07/2018 01/23/2019 Hypothyroidism, acquired [E03.9] 08/07/2018 History of loss in prior , c*12/19/2018 01/23/2019 Nausea and vomiting in [O21.9] 12/19/2018 05/30/2019 Excessive weight gain during , deliver*12/19/2018 05/23/2024 Obesity in , antepartum (HCC) [O99.210]12/19/2018 05/23/2024 Twin gestation in first trimester (HCC) [O30.00*01/23/2019 Positive GBS test [B95.1] 06/30/2019 05/23/2024 Class 2 obesity with body mass index (BMI) of 3*07/21/2023 Wellness examination [Z00.00] 07/21/2023 05/23/2024 Acquired hypothyroidism [E03.9] 07/21/2023 High-risk , multigravida of advanced m*05/23/2024 Twin with single intrauterine , *06/05/2024 Wellness examination [Z00.00] 08/23/2024 Encounter Status:Closed by GLO SMITH on 11/18/24 Normal [facility] T4 Free SerPl-mCncon 025 Free T4 [Mass/Vol] 0.7 ng/dL Low 0.9-1.7 [facility] Comment on above: Order Comment: Speci men Type: BLOOD SPECIMENOrdering Facility: [facility] Address: [address] [place] [address] Performed By: #### 3 016-3, 3024-7 ####[facility] [id number] [place] [address] [place] TSH SerPl-aCncon 11-12-2024 TSH Qn 1.580 m[IU]/L Normal 0.270-4.200 [facility] Comment on above: Order Comment: Speci men Type: BLOOD SPECIMENOrdering Facility: [facility] Address: [address] [place] [address] Result Comment: If t he patient is , TSH reference range varies by gestational period: First Trimester (weeks 9-12): 0.180-2.990 mIU/L Second Trimester: 0.110-3.980 mIU/L Third Trimester: 0.480-4.710 mIU/L Homer Caputo et al. A Practical Approach for the Verifications and Determination of Site- and Trimester-Specific Reference Intervals for Thyroid Function tests in . Thyroid, 2019:29:3:412-420. Moose Lopez, et al. 2017 Guidelines of the [place] Thyroid Association for the Diagnosis and Management of Thyroid Disease during and the . Thyroid, 2017:27:3:315-389. Performed By: #### 3 016-3, 3024-7 ####[facility] [id number] [address] 10-29-2024 CNPN Telephone (OBGYWM) NENA LEIVA ([id number]) 1990 F Date Time Provider Department 10/29/24 LIANNA CAPONE During your visit today, we recorded the following information about you: Kristen Chang RN 10/29/2024 10:06 AM Signed Received breast pump RX from [facility]. To DM to sign. GILMAR Cottrell Lindsey, RN 10/29/2024 12:33 PM Signed Order signed and faxed. Juliana Huston RN Allergies As of Date: 10/29/2024 Noted Allergy Reaction BEES 07/07/2008 7 - Swelling LATEX 07/07/2008 4 - Hives Date Reviewed: 10/29/2024 Reviewed by: Kristen Smith MD - Fully Assessed Reason for Visit: Breast Pump RX [Other] Prescriptions as of 10/29/2024 - thyroid (LABORER ORCHARD THYROID) 120 mg tablet Take 1 tablet PO 3 days a week and 2 tablets PO 4 days a week - aspirin, enteric coated (ECOTRIN LOW STRENGTH) 81 mg EC tablet Take 1 tablet by mouth once daily. - PNV no.95/ferrous fum/folic ac ( ORAL) Take 2 capsules by mouth once daily. - Magnesium Oxide 500 mg magnesium tab Take 500 mg by mouth once daily. - L.acid,para-B.bifidum- S.therm (QUAD-PROBIOTIC) 8 billion cell cap Take by mouth once daily. - cetirizine (ZYRTEC) 10 mg tablet Problem List As Of Date 10/29/2024 Noted Resolved Hypothyroidism complicating [O99.280,*10/14/2013 Normal , first [Z34.00] 11/06/2013 08/10/2014 Rh negative state in antepartum period [O26.899*11/07/2013 Acquired hypothyroidism [E03.9] 01/21/2015 01/23/2019 Malaise and fatigue [R53.81, R53.83] 07/23/2015 03/28/2018 Multinodular goiter [E04.2] 08/26/2015 Impaired fasting glucose [R73.01] 10/27/2015 11/01/2015 Angular cheilitis [K13.0] 12/24/2015 03/28/2018 Well adult exam [Z00.00] 12/24/2015 03/28/2018 Thyroiditis [E06.9] 03/24/2016 03/28/2018 Mold exposure [Z77.120] 08/03/2016 03/28/2018 Disorder of thyroid, antepartum [O99.280, E07.9]03/14/2018 03/28/2018 Obesity in [O99.210] 03/14/2018 03/28/2018 Excessive weight gain during , antepar*03/14/2018 03/28/2018 Family history of congenital heart defect [Z82.*03/14/2018 Patient request for diagnostic testing [Z01.89] 03/14/2018 05/30/2019 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] 04/05/2018 01/23/2019 Routine physical examination [Z00.00] 08/07/2018 01/23/2019 Hypothyroidism, acquired [E03.9] 08/07/2018 History of loss in prior , c*12/19/2018 01/23/2019 Nausea and vomiting in [O21.9] 12/19/2018 05/30/2019 Excessive weight gain during , deliver*12/19/2018 05/23/2024 Obesity in , antepartum (HCC) [O99.210]12/19/2018 05/23/2024 Twin gestation in first trimester (HCC) [O30.00*01/23/2019 Positive GBS test [B95.1] 06/30/2019 05/23/2024 Class 2 obesity with body mass index (BMI) of 3*07/21/2023 Wellness examination [Z00.00] 07/21/2023 05/23/2024 Acquired hypothyroidism [E03.9] 07/21/2023 High-risk , multigravida of advanced m*05/23/2024 Twin with single intrauterine , *06/05/2024 Wellness examination [Z00.00] 08/23/2024 Encounter Status:Closed by JULIANA HUSTON [facility]29[facility] ([id number]) 1990 F Date Time Provider Department 10/27/24 MIGUELITO CHAMPION [facility] During your visit today, we recorded the following information about you: Lisa León LPN 10/27/2024 11:44 AM Signed Increase again even though my TSH was 0.6? Just wanted to make sure I?m reading it right. Me to Nena NAQVI 10/24/24 5:09 PM Please have her increase her dose to 2 tablets 5 days a week and 1 tablet 2 days a week for her LABOR[employer]CHARD thyroid 120 mg Recheck labs 1 month Miguelito Champion DO Last read by Nena Leiva at 5:19PM on 10/24/2024. Miguelito Champion DO 10/29/2024 9:03 PM Signed Yes because her free t4 is too low still at 0.7 Thanks DO George Skelton Linda M, LPN 10/30/2024 1:22 PM Signed Information sent back through my chart since this is how pt inquired. Allergies As of Date: 10/27/2024 Noted Allergy Reaction BEES 07/07/2008 7 - Swelling LATEX 07/07/2008 4 - Hives Date Reviewed: 10/15/2024 Reviewed by: Lauren Madera APRN.CLINICAL THERAPIST - Fully Assessed Prescriptions as of 10/30/2024 - thyroid (LABORER ORCHARD THYROID) 120 mg tablet Take 1 tablet PO 3 days a week and 2 tablets PO 4 days a week - aspirin, enteric coated (ECOTRIN LOW STRENGTH) 81 mg EC tablet Take 1 tablet by mouth once daily. - PNV no.95/ferrous fum/folic ac ( ORAL) Take 2 capsules by mouth once daily. - Magnesium Oxide 500 mg magnesium tab Take 500 mg by mouth once daily. - L.acid,para-B.bifidum- S.therm (QUAD-PROBIOTIC) 8 billion cell cap Take by mouth once daily. - cetirizine (ZYRTEC) 10 mg tablet Problem List As Of Date 10/27/2024 Noted Resolved Hypothyroidism complicating [O99.280,*10/14/2013 Normal , first [Z34.00] 11/06/2013 08/10/2014 Rh negative state in antepartum period [O26.899*11/07/2013 Acquired hypothyroidism [E03.9] 01/21/2015 01/23/2019 Malaise and fatigue [R53.81, R53.83] 07/23/2015 03/28/2018 Multinodular goiter [E04.2] 08/26/2015 Impaired fasting glucose [R73.01] 10/27/2015 11/01/2015 Angular cheilitis [K13.0] 12/24/2015 03/28/2018 Well adult exam [Z00.00] 12/24/2015 03/28/2018 Thyroiditis [E06.9] 03/24/2016 03/28/2018 Mold exposure [Z77.120] 08/03/2016 03/28/2018 Disorder of thyroid, antepartum [O99.280, E07.9]03/14/2018 03/28/2018 Obesity in [O99.210] 03/14/2018 03/28/2018 Excessive weight gain during , antepar*03/14/2018 03/28/2018 Family history of congenital heart defect [Z82.*03/14/2018 Patient request for diagnostic testing [Z01.89] 03/14/2018 05/30/2019 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] 04/05/2018 01/23/2019 Routine physical examination [Z00.00] 08/07/2018 01/23/2019 Hypothyroidism, acquired [E03.9] 08/07/2018 History of loss in prior , c*12/19/2018 01/23/2019 Nausea and vomiting in [O21.9] 12/19/2018 05/30/2019 Excessive weight gain during , deliver*12/19/2018 05/23/2024 Obesity in , antepartum (HCC) [O99.210]12/19/2018 05/23/2024 Twin gestation in first trimester (HCC) [O30.00*01/23/2019 Positive GBS test [B95.1] 06/30/2019 05/23/2024 Class 2 obesity with body mass index (BMI) of 3*07/21/2023 Wellness examination [Z00.00] 07/21/2023 05/23/2024 Acquired hypothyroidism [E03.9] 07/21/2023 High-risk , multigravida of advanced m*05/23/2024 Twin with single intrauterine , *06/05/2024 Wellness examination [Z00.00] 08/23/2024 Encounter Status:Closed by PIPER MISTRY on 10/30/24 [facility] Vania 10-24-2024 CNPN Telephone (FAMPWS) NENA LEIVA ([id number]) 1990 F Date Time Provider Department 10/24/24 MIGUELITO CHAMPION FAMPWS During your visit today, we recorded the following information about you: Kristal CrystalMORGAN 10/24/2024 2:15 PM Signed Please see pt message -- I had labs drawn last week for OBGYN but I think my thyroid labs went to them for review. I just wanted to make sure you had a chance to review them and orders were in for the next time you want me to draw again. Thanks! Miguelito Carpenter DO 10/24/2024 4:52 PM Signed Please have her increase her dose to 2 tablets 5 days a week and 1 tablet 2 days a week for her LABORER ORCHARD thyroid 120 mg Recheck labs 1 month DO Natasha Skelton Susan LPN 10/24/2024 5:09 PM Signed Pt. informed via my chart. Allergies As of Date: 10/24/2024 Noted Allergy Reaction BEES 07/07/2008 7 - Swelling LATEX 07/07/2008 4 - Hives Date Reviewed: 10/15/2024 Reviewed by: Lauren Madera APRN.CLINICAL THERAPIST - Fully Assessed Primary Visit Diagnosis:Acquired hypothyroidism [E03.9] Order(s):THYROID STIMULATING HORMONE [SQTSH] Order #: [id number] FUTURE T4 FREE/FREE THYROXINE [SQFT4] Order #: [id number] FUTURE Prescriptions as of 10/24/2024 - thyroid (LABORER ORCHARD THYROID) 120 mg tablet Take 1 tablet PO 3 days a week and 2 tablets PO 4 days a week - aspirin, enteric coated (ECOTRIN LOW STRENGTH) 81 mg EC tablet Take 1 tablet by mouth once daily. - PNV no.95/ferrous fum/folic ac ( ORAL) Take 2 capsules by mouth once daily. - Magnesium Oxide 500 mg magnesium tab Take 500 mg by mouth once daily. - L.acid,para-B.bifidum- S.therm (QUAD-PROBIOTIC) 8 billion cell cap Take by mouth once daily. - cetirizine (ZYRTEC) 10 mg tablet Problem List As Of Date 10/24/2024 Noted Resolved Hypothyroidism complicating [O99.280,*10/14/2013 Normal , first [Z34.00] 11/06/2013 08/10/2014 Rh negative state in antepartum period [O26.899*11/07/2013 Acquired hypothyroidism [E03.9] 01/21/2015 01/23/2019 Malaise and fatigue [R53.81, R53.83] 07/23/2015 03/28/2018 Multinodular goiter [E04.2] 08/26/2015 Impaired fasting glucose [R73.01] 10/27/2015 11/01/2015 Angular cheilitis [K13.0] 12/24/2015 03/28/2018 Well adult exam [Z00.00] 12/24/2015 03/28/2018 Thyroiditis [E06.9] 03/24/2016 03/28/2018 Mold exposure [Z77.120] 08/03/2016 03/28/2018 Disorder of thyroid, antepartum [O99.280, E07.9]03/14/2018 03/28/2018 Obesity in [O99.210] 03/14/2018 03/28/2018 Excessive weight gain during , antepar*03/14/2018 03/28/2018 Family history of congenital heart defect [Z82.*03/14/2018 Patient request for diagnostic testing [Z01.89] 03/14/2018 05/30/2019 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] 04/05/2018 01/23/2019 Routine physical examination [Z00.00] 08/07/2018 01/23/2019 Hypothyroidism, acquired [E03.9] 08/07/2018 History of loss in prior , c*12/19/2018 01/23/2019 Nausea and vomiting in [O21.9] 12/19/2018 05/30/2019 Excessive weight gain during , deliver*12/19/2018 05/23/2024 Obesity in , antepartum (HCC) [O99.210]12/19/2018 05/23/2024 Twin gestation in first trimester (HCC) [O30.00*01/23/2019 Positive GBS test [B95.1] 06/30/2019 05/23/2024 Class 2 obesity with body mass index (BMI) of 3*07/21/2023 Wellness examination [Z00.00] 07/21/2023 05/23/2024 Acquired hypothyroidism [E03.9] 07/21/2023 High-risk , multigravida of advanced m*05/23/2024 Twin with single intrauterine , *06/05/2024 Wellness examination [Z00.00] 08/23/2024 Encounter Status:Closed by LISA LEÓN LPN on 10/24/24 Normal [facility] Examination level ultrasound on 10-16-2024 [facility] CBC W Auto Differential pane l (Bld)on 10-15-2024 Basophils (Bld) [#/Vol] 0.05 10*3/uL Normal <0.11 [facility] Comment on above: Order Comment: Speci men Type: BLOOD SPECIMEN Ordering Facility: [facility] Address: [address] [place] [address] Performed By: #### 7 3752-8, 3, 34025-8 #### [facility] CLIA [id number] [address] [place] [address] [place] Basophils/100 WBC (Bld) 0.4 % Normal [facility] Comment on above: Order Comment: Speci men Type: BLOOD SPECIMEN Ordering Facility: [facility] Address: [address] [place] [address] Performed By: #### 7 3752-8, 3, 18013-2 #### [facility] CLIA [id number] [address] [place] [address] [place] Differential cell count method Nom (Bld) Auto Normal [facility] Comment on above: Order Comment: Speci men Type: BLOOD SPECIMEN Ordering Facility: [facility] Address: [address] [place] [address] Performed By: #### 7 3752-8, 3, 78539-1 #### [facility] CLIA [id number] [address] [place] [address] [place] Eosinophils (Bld) [#/Vol] 0.16 10*3/uL Normal <0.46 [facility] Comment on above: Order Comment: Speci men Type: BLOOD SPECIMEN Ordering Facility: [facility] Address: [address] [place] [address] Performed By: #### 7 3752-8, 5-3, 10690-8 #### [facility] CLIA [id number] [address] [place] [address] [place] Eosinophils/100 WBC (Bld) 1.2 % Normal [facility] Comment on above: Order Comment: Speci men Type: BLOOD SPECIMEN Ordering Facility: [facility] Address: [address] [place] [address] Performed By: #### 7 3752-8, 5195-3, 28893-9 #### [facility] CLIA [id number] [address] [place] [address] [place] Erythrocyte distribution width (RBC) [Ratio] 13.1 % Normal 11.5-15.0 [facility] Comment on above: Order Comment: Speci men Type: BLOOD SPECIMEN Ordering Facility: [facility] Address: [address] [place] [address] Performed By: #### 7 3752-8, 5195-3, 23097-8 #### [facility] CLIA [id number] [address] [place] [address] [place] Hematocrit (Bld) [Volume fraction] 36.1 % Normal 36.0-46.0 [facility] Comment on above: Order Comment: Speci men Type: BLOOD SPECIMEN Ordering Facility: [facility] Address: [address] [place] [address] Performed By: #### 7 3752-8, 5195-3, 83028-5 #### [facility] CLIA [id number] [address] [place] [address] [place] Hemoglobin (Bld) [Mass/Vol] 12.5 g/dL Normal 11.5-15.5 [facility] Comment on above: Order Comment: Speci men Type: BLOOD SPECIMEN Ordering Facility: [facility] Address: [address] [place] [address] Performed By: #### 7 3752-8, 5195-3, 01329-0 #### [facility] CLIA [id number] [address] [place] [address] [place] Immature granulocytes (Bld) [#/Vol] 0.08 10*3/uL Normal <0.10 [facility] Comment on above: Order Comment: Speci men Type: BLOOD SPECIMEN Ordering Facility: [facility] Address: [address] [place] [address] Performed By: #### 7 3752-8, 5195-3, 24108-0 #### [facility] CLIA [id number] [address] [place] [address] [place] Immature granulocytes/100 WBC (Bld) 0.6 % Normal [facility] Comment on above: Order Comment: Speci men Type: BLOOD SPECIMEN Ordering Facility: [facility] Address: [address] [place] [address] Performed By: #### 7 3752-8, 5195-3, 04933-3 #### [facility] CLIA [id number] [address] [place] [address] [place] Lymphocytes (Bld) [#/Vol] 2.18 10*3/uL Normal 1.00-4.00 [facility] Comment on above: Order Comment: Speci men Type: BLOOD SPECIMEN Ordering Facility: [facility] Address: [address] [place] [address] Performed By: #### 7 3752-8, 5195-3, 07647-9 #### [facility] CLIA [id number] [address] [place] [address] [place] Lymphocytes/100 WBC (Bld) 16.3 % Normal [facility] Comment on above: Order Comment: Speci men Type: BLOOD SPECIMEN Ordering Facility: [facility] Address: [address] [place] [address] Performed By: #### 7 3752-8, 5195-3, 44501-9 #### [facility] CLIA [id number] [address] [place] [address] [place] MCH (RBC) [Entitic mass] 28.4 pg Normal 26.0-34.0 [facility] Comment on above: Order Comment: Speci men Type: BLOOD SPECIMEN Ordering Facility: [facility] Address: [address] [place] [address] Performed By: #### 7 3752-8, 5195-3, 36943-0 #### [facility] CLIA [id number] [address] [place] [address] [place] MCHC (RBC) [Mass/Vol] 34.6 g/dL Normal 30.5-36.0 [facility] Comment on above: Order Comment: Speci men Type: BLOOD SPECIMEN Ordering Facility: [facility] Address: [address] [place] [address] Performed By: #### 7 3752-8, 5-3, 33550-6 #### [facility] CLIA [id number] [address] [place] [address] [place] MCV (RBC) [Entitic vol] 82.0 fL Normal 80.0-100.0 [facility] Comment on above: Order Comment: Speci men Type: BLOOD SPECIMEN Ordering Facility: [facility] Address: [address] [place] [address] Performed By: #### 7 3752-8, 5-3, 59455-5 #### [facility] CLIA [id number] [address] [place] [address] [place] Monocytes (Bld) [#/Vol] 0.70 10*3/uL Normal <0.87 [facility] Comment on above: Order Comment: Speci men Type: BLOOD SPECIMEN Ordering Facility: [facility] Address: [address] [place] [address] Performed By: #### 7 3752-8, 5-3, 68108-2 #### [facility] CLIA [id number] [address] [place] [address] [place] Monocytes/100 WBC (Bld) 5.2 % Normal [facility] Comment on above: Order Comment: Speci men Type: BLOOD SPECIMEN Ordering Facility: [facility] Address: [address] [place] [address] Performed By: #### 7 3752-8, 5194-3, 53166-9 #### [facility] CLIA [id number] [address] [place] [address] [place] Neutrophils (Bld) [#/Vol] 10.21 10*3/uL High 1.45-7.50 [facility] Comment on above: Order Comment: Speci men Type: BLOOD SPECIMEN Ordering Facility: [facility] Address: [address] [place] [address] Performed By: #### 7 3752-8, 5194-3, 01648-0 #### [facility] CLIA [id number] [address] [place] [address] [place] Neutrophils/100 WBC (Bld) 76.3 % Normal [facility] Comment on above: Order Comment: Speci men Type: BLOOD SPECIMEN Ordering Facility: [facility] Address: [address] [place] [address] Performed By: #### 7 3752-8, 5194-3, 04166-2 #### [facility] CLIA [id number] [address] [place] [address] [place] Nucleated RBC (Bld) [#/Vol] 10*3/uL Normal <0.01 [facility] Comment on above: Order Comment: Speci men Type: BLOOD SPECIMEN Ordering Facility: [facility] Address: [address] [place] [address] Performed By: #### 7 3752-8, 5194-3, 85498-1 #### [facility] CLIA [id number] [address] [place], [place] [address] [place] Nucleated RBC/100 WBC (Bld) [Ratio] 0.0 /100 WBC Normal [facility] Comment on above: Order Comment: Speci men Type: BLOOD SPECIMEN Ordering Facility: [facility] Address: [address] [place] [address] Performed By: #### 7 3752-8, 5195-3, 88288-6 #### [facility] CLIA [id number] [address] [place] [address] [place] Platelet mean volume (Bld) [Entitic vol] 9.4 fL Normal 9.0-12.7 [facility] Comment on above: Order Comment: Speci men Type: BLOOD SPECIMEN Ordering Facility: [facility] Address: [address] [place] [address] Performed By: #### 7 3752-8, 5195-3, 31471-3 #### [facility] CLIA [id number] [address] [place] [address] [place] Platelets (Bld) [#/Vol] 213 10*3/uL Normal 150-400 [facility] Comment on above: Order Comment: Speci men Type: BLOOD SPECIMEN Ordering Facility: [facility] Address: [address] [place] [address] Performed By: #### 7 3752-8, 5195-3, 04542-0 #### [facility] CLIA [id number] [address] [place], [place] [address] [place] RBC (Bld) [#/Vol] 4.40 10*6/uL Normal 3.90-5.20 [facility] Comment on above: Order Comment: Speci men Type: BLOOD SPECIMEN Ordering Facility: [facility] Address: [address] [place] [address] Performed By: #### 7 3752-8, 5195-3, 67283-7 #### [facility] IA [id number] [address] [place] [address] [place] WBC (Bld) [#/Vol] 13.38 10*3/uL High 3.70-11.00 [facility] Comment on above: Order Comment: Speci jillian Type: BLOOD SPECIMEN Ordering Facility: [facility] Address: [address] [place] [address] Performed By: #### 7 3752-8, 5195-3, 14546-5 #### [facility] IA [id number] [address] [place] [address] [place] Examination level ultrasound on 10-15-2024 Radiology Study observation (narrative) [facility] GESTATIONAL GLUCOSE SCREEN, 1-HOUR, 50 GRAM, NON-FASTINGon 10-15-2024 Glucose [Mass/Vol] 129 mg/dL Normal 74-134 [facility] Comment on above: Order Comment: Speci jillian Type: BLOOD SPECIMEN Ordering Facility: [facility] Address: [address] [place] [address] Result Comment: [facility] Congress of Obstetricians and Gynecologists (Zavala/Harjit) guidelines state a gestational diabetes mellitus positive screen is made, in women not previously diagnosed with overt diabetes, when the 1 hr plasma glucose level is equal to or above 140 mg/dL. [facility] [employer] [facility] recommends a 135 mg/dL cutoff. Performed By: #### 3 016-3, 3024-7 #### [facility] IA [id number] [address] [place], [place] [address] [place] Reagin and Treponema pallidu m IgG and IgM [Interp]on 10-15-2024 T. pallidum IgG+IgM IA Ql (S) Non-Reactive Normal Nonreactive [facility] Comment on above: Order Comment: Speci men Type: BLOOD SPECIMEN Ordering Facility: [facility] Address: [address] [place] [address] Performed By: #### 7 3752-8, 5195-3, 65053-8 #### [facility] CLIA [id number] [address] [place] [address] [place] Reagin+T pallidum IgG+IgM Se rPl-Impon 10-15-2024 Reagin and Treponema pallidum IgG and IgM [Interp] Cannot exclude recent Treponemal infection if specimen collected within 7-10 days after appearance of suspect lesions or 2-3 weeks after an exposure. Clinical correlation is required. Normal [facility] Comment on above: Order Comment: Speci men Type: BLOOD SPECIMEN Ordering Facility: [facility] Address: [address] [place] [address] Performed By: #### 7 3752-8, 5195-3, 79053-5 #### [facility] CLIA [id number] [address] [place] [address] [place] T4 Free SerPl-mCncon 025 Free T4 [Mass/Vol] 0.7 ng/dL Low 0.9-1.7 [facility] Comment on above: Order Comment: Speci men Type: BLOOD SPECIMEN Ordering Facility: [facility] Address: [address] [place] [address] Performed By: #### 7 3752-8, 5195-3, 30974-8 #### [facility] CLIA [id number] [address] [place] [address] [place] TSH W/REFLEX FT4on 5 TSH Qn 0.663 m[IU]/L Normal 0.270-4.200 [facility] Comment on above: Order Comment: Speci men Type: BLOOD SPECIMEN Ordering Facility: [facility] Address: [address] [place] [address] Result Comment: If t he patient is , TSH reference range varies by gestational period: First Trimester (weeks 9-12): 0.180-2.990 mIU/L Second Trimester: 0.110-3.980 mIU/L Third Trimester: 0.480-4.710 mIU/L Homer Caputo et al. A Practical Approach for the Verifications and Determination of Site- and Trimester-Specific Reference Intervals for Thyroid Function tests in . Thyroid, 2019:29:3:412-420. Moose Lopez et al. 2017 Guidelines of the [place] Thyroid Association for the Diagnosis and Management of Thyroid Disease during and the . Thyroid, 2017:27:3:315-389. If the patient is , TSH reference range varies by gestational period: First Trimester (weeks 9-12): 0.180-2.990 mIU/L Second Trimester: 0.110-3.980 mIU/L Third Trimester: 0.480-4.710 mIU/L Homer Caputo et al. A Practical Approach for the Verifications and Determination of Site- and Trimester-Specific Reference Intervals for Thyroid Function tests in . Thyroid, 2019:29:3:412-420. Moose Lopez et al. 2017 Guidelines of the [place] Thyroid Association for the Diagnosis and Management of Thyroid Disease during and the . Thyroid, 2017:27:3:315-389. Performed By: #### 7 3752-8, 5195-3, 49216-8 #### [facility] CLIA [id number] [address] [place] [address] [facility] Result Comment: If t he patient is , TSH reference range varies by gestational period: First Trimester (weeks 9-12): 0.180-2.990 mIU/L Second Trimester: 0.110-3.980 mIU/L Third Trimester: 0.480-4.710 mIU/L Homer Caputo et al. A Practical Approach for the Verifications and Determination of Site- and Trimester-Specific Reference Intervals for Thyroid Function tests in . Thyroid, 2019:29:3:412-420. Moose Lopez et al. 2017 Guidelines of the [place] Thyroid Association for the Diagnosis and Management of Thyroid Disease during and the . Thyroid, 2017:27:3:315-389. TYPE + SCREEN PRENATALon ABO A Normal [facility] Comment on above: Order Comment: Speci men Type: BLOOD SPECIMEN Ordering Facility: [facility] Address: [address] [place] [address] Performed By: #### 7 3752-8, 51953, 46006-5 #### [facility] CLIA [id number] [address] [place] [address] [place] Rh Nom (Bld) Negative Normal [facility] Comment on above: Order Comment: Speci men Type: BLOOD SPECIMEN Ordering Facility: [facility] Address: [address] [place] [address] Performed By: #### 7 3752-8, 5195-3, 31255-7 #### [facility] CLIA [id number] [address] [place] [address] [place] TYPE AND SCREEN EXPIRATION 10/18/2024 23:59 Normal [facility] Comment on above: Order Comment: Speci men Type: BLOOD SPECIMEN Ordering Facility: [facility] Address: [address] [place] [address] Performed By: #### 7 3752-8, 5195-3, 02254-6 #### [facility] CLIA [id number] [address] [place] [address] [place] T4 Free SerPl-mCncon 025 Free T4 [Mass/Vol] 0.7 ng/dL Low 0.9-1.7 [facility] Comment on above: Order Comment: Speci men Type: BLOOD SPECIMEN Ordering Facility: [facility] Address: [address] [place] [address] Performed By: #### 3 016-3, 3024-7 #### [facility] CLIA [id number] [address] [place] [address] [place] TSH SerPl-aCncon 09-19-2024 TSH Qn 1.370 m[IU]/L Normal 0.270-4.200 [facility] Comment on above: Order Comment: Speci men Type: BLOOD SPECIMEN Ordering Facility: [facility] Address: [address] [place] [address] Result Comment: If t he patient is , TSH reference range varies by gestational period: First Trimester (weeks 9-12): 0.180-2.990 mIU/L Second Trimester: 0.110-3.980 mIU/L Third Trimester: 0.480-4.710 mIU/L Homer Caputo et al. A Practical Approach for the Verifications and Determination of Site- and Trimester-Specific Reference Intervals for Thyroid Function tests in . Thyroid, 2019:29:3:412-420. Moose E, et al. 2017 Guidelines of the [place] Thyroid Association for the Diagnosis and Management of Thyroid Disease during and the . Thyroid, 2017:27:3:315-389. Performed By: #### 3 016-3, 3024-7 #### [facility] CLIA [id number] [address] [place] [address] Examination level ultrasound on 08-25-2024 Indication Detailed anatomic survey Maternal obesity, BMI >35, Advanced maternal age, Vanishing twin Impression The patient is referred for a detailed anatomic survey. - Single, live, intrauterine . - biometry is consistent with the established gestational age. - No malformations were visualized on a complete detailed anatomic survey. - The amniotic fluid volume is normal amount. - The placenta is posterior, fundal. - The Transabdominal cervical length measures 39.2 mm with no evidence of funneling or other dynamic changes. - Not all structural malformations can be detected by ultrasound examination. Recommendations - growth every 4 weeks starting at 28 weeks. - Additional follow up as clinically indicated. Maternal Assessment Height 165 cm Height (ft) 5 ft Height (in) 5 in Physical Exam Initial weight (lb) 213 lb Initial BMI 35.45 kg/m Maternal assessment other: 4 Para 3 REMOTE READ Method Transabdominal ultrasound examination. View: Adequate visualization Davies . Number of fetuses: 1 Dating LMP on: 04/02/2024 GA by LMP 20 w + 2 d VENICE by LMP: 01/07/2025 GA by prior assessment 20 w + 2 d VENICE by prior assessment: 01/07/2025 Ultrasound examination on: 08/22/2024 GA by U/S based upon: AC, BPD, Femur, HC GA by U/S 21 w + 1 d VENICE by U/S: 01/01/2025 Assigned: based on stated VENICE, selected on 08/22/2024 Assigned GA 20 w + 2 d Assigned VENICE: 01/07/2025 General Evaluation Cardiac activity present. FHR 155 bpm. movements: present. Presentation: transverse head right Placenta: Placental site: posterior, fundal Umbilical cord: Cord vessels: 3 vessel cord Amniotic fluid: Amount of AF: normal amount. MVP 6.7 cm Growth Overview Exam date GA BPD (mm) HC (mm) AC (mm) FL (mm) HL (mm) EFW (g) 07/25/2024 16w 2d 34.1 60% 132.2 57% 118.4 88% 21.9 67% 21.8 68% 177 84% 08/22/2024 20w 2d 47.3 50% 184 65% 177.5 97% 34.6 83% 33.3 84% 443 98% Biometry Standard BPD 47.3 mm 20w 2d 50% Hadlock OFD 67.2 mm 21w 0d 96% Nicolaides HC 184.0 mm 20w 5d 65% Felipe Cerebellum tr 22.9 mm 21w 2d 94% Hill Nuchal fold 4.1 mm AC 177.5 mm 22w 4d 97% Hadlock Femur 34.6 mm 21w 1d 83% Felipe Humerus 33.3 mm 21w 2d 84% Felipe EFW 443 g 21w 4d 98% Hadlock EFW (lb) 1 lb EFW (oz) 0 oz EFW by: Hadlock (HC-AC-FL) Extended Prop Maker 5.9 mm CM 3.7 mm 11% Nicolaides Extremities / Bony Struc FL / HC 0.19 58% Hadlock Other Structures FHR 155 bpm Anatomy Cranium: normal Lateral ventricles: normal Choroid plexus: normal Midline falx: normal Cavum septi pellucidi: normal Cerebellum: normal Cisterna magna: normal Head / Neck Vermis: normal Neck: normal Nuchal fold: normal Lips: normal Profile: normal Nose: normal Face Maxilla: normal Mandible: normal Orbits: normal Lens: normal 4-chamber view: normal RVOT view: normal LVOT view: normal 3-vessel view: normal 5-nzuzci-tklmgdc view: normal Heart / Thorax Situs: situs solitus (normal) Aortic arch view: normal SVC: normal IVC: normal Cardiac axis: normal Rt lung: normal Lt lung: normal Diaphragm: normal Cord insertion: normal Stomach: normal Kidneys: normal Bladder: normal Genitals: normal Abdomen Abdom. wall: normal Cervical spine: normal Thoracic spine: normal Lumbar spine: normal Sacral spine: normal Arms: normal Legs: normal Rt upper arm: normal Rt forearm: normal Rt hand: normal Rt fingers: normal Lt upper arm: normal Lt forearm: normal Lt hand: normal Lt fingers: normal Rt upper leg: normal Rt lower leg: normal Rt foot: normal Lt upper leg: normal Lt lower leg: normal Lt foot: normal sex: female Wants to know sex: yes Maternal Structures Uterus / Cervix Uterus: Visualized Cervix: Visualized Approach: Transabdominal Cervical length 39.2 mm Other: Patient declined transvaginal ultrasound for cervical length. Ovaries / Tubes / Adnexa Rt ovary: Not visualized Lt ovary: Visualized Performed By: Juliana Fischer RDMS, RVT Read By: Jossie Gonzales M.D. [facility] NENA LEIVA ([id number]) 1990 F Date Time Provider Department 08/23/24 9:00 AM MIGUELITO CHAMPION [facility] During your visit today, we recorded the following information about you: Temperature Pulse Blood pressure Weight 98 degrees 85/minute 106/67 103.1 kg Height 1.66 m Miguelito Champion, DO 08/23/2024 10:40 AM Signed CC: Nena Leiva is a 34 year old female who presents to the office for physical HPI: Overall she is doing well She is with a baby girl and due in 20 weeks, she is 20 weeks 3 days and managed by OBGYN in [place]. She has had 3 other successful vaginal births-1 davies, 1 set of twins. She is taking her vitamins at this time. Hypothyroidism, she is taking 120 mg of LABORER ORCHARD thyroid 4 days a week and 240 mg 3 days a week, wiling to change dose if needed, just had labs completed this week TSH Date Value Ref Range Status 08/22/2024 2.580 0.270 - 4.200 mIU/L Final Comment: If the patient is , TSH reference range varies by gestational period: First Trimester (weeks 9-12): 0.180-2.990 mIU/L Second Trimester: 0.110-3.980 mIU/L Third Trimester: 0.480-4.710 mIU/L Homer Caputo et al. A Practical Approach for the Verifications and Determination of Site- and Trimester-Specific Reference Intervals for Thyroid Function tests in . Thyroid, 2019:29:3:412-420. Moose Lopez, et al. 2017 Guidelines of the [place] Thyroid Association for the Diagnosis and Management of Thyroid Disease during and the . Thyroid, 2017:27:3:315-389. 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 Rh negative state in antepartum period (HCC) 11/07/2013 Vitamin D deficiency PAST SURGICAL HISTORY Procedure Laterality Date DILATION AND CURETTAGE DXAND/THER NONOBSTETRIC 03/28/2018 Dilation AND curettage PAST SURGICAL HISTORY OF 10 extraction of wisdom teeth Social History: Social History Tobacco Use Smoking status: Never Smokeless tobacco: Never Vaping Use Vaping status: Never Used Substance Use Topics Alcohol use: No Drug use: No FAMILY HISTORY Problem Relation Age of Onset Thyroid Mother Cervical Cancer Mother Asthma Mother other (fibromyalgia) Mother No Known Problems Father No Known Problems Sister No Known Problems Sister No Known Problems Sister No Known Problems Brother No Known Problems Brother No Known Problems Brother No Known Problems Brother No Known Problems Brother Diabetes Brother diagnosed at age 19 Hyperlipidemia Maternal Grandmother Hypertension Maternal Grandmother Prostate Cancer Maternal Grandfather other (htn) Maternal Grandfather other (hypercholesteremia) Maternal Grandfather Breast Cancer Paternal Grandmother Hyperlipidemia Paternal Grandmother Asthma Brother Asthma Brother Allergies Son Asthma Son other (Eczema) Son Current Outpatient prescriptions: aspirin, enteric coated (ECOTRIN LOW STRENGTH) 81 mg EC tablet Take 1 tablet by mouth once daily. PNV no.95/ferrous fum/folic ac ( ORAL) Take 2 capsules by mouth once daily. Magnesium Oxide 500 mg magnesium tab Take 500 mg by mouth once daily. L.acid,para-B.bifidum- S.therm (QUAD-PROBIOTIC) 8 billion cell cap Take by mouth once daily. cetirizine (ZYRTEC) 10 mg tablet thyroid (LABORER ORCHARD THYROID) 120 mg tablet Take 1 tablet PO 3 days a week and 2 tablets PO 4 days a week Allergies: ALLERGIES Allergen Reactions Bees Swelling Latex Hives ROS: See HPI PE: 08/23/24 0841 BP: 106/67 BP Site: Left Arm BP Position: Sitting BP Cuff Size: Regular Adult Pulse: 85 Temp: 36.7 ?C (98 ?F) SpO2: 97% Weight: 103.1 kg (227 lb 3.2 oz) Height: 166 cm (5' 5.35") Gen: AANDO, NAD, non-toxic appearing, Pleasant, cooperative HEENT: NT/AC, PERRLA, EOMs intact b/l, nares clear and patent b/l, pharynx without erythema, exudate or lesions. Uvula midline. EACs without erythema or debris. TMs pearly trujillo with intact landmarks b/l. Neck: supple, No cervical LAD, no thyromegaly, no carotid bruits CV: RRR, normal S1 and S2, no murmurs, no gallops, no rubs, Pulses 2+ and symmetric in UE and LE b/l Lungs: normal respiratory effort, CTA b/l, no wheezing or rhonchi or rales Abd: soft, NT, ND, +BS, no hepatosplenomegaly MS: FROM all 4 extremities Neuro: CN II-XII intact b/l, strength 5/5 b/l UE and LE, DTRs 2/4 UE and LE, sensation intact. Skin: warm, dry, intact, No rashes or lesions on exposed skin. No edema, normal pulses Gravid uterus on examination, no pain ASSESSMENT/PLAN: 1. Wellness examination - ICD9: V70.0, ICD10: Z00.00 (primary diagnosis) - Counseled on healthy diet and regular exercise 2. Scre (more content not included)... Normal [facility] Examination level ultrasound on 08-22-2024 Radiology Study observation (narrative) [facility] Free T4 [Mass/Vol]on 025 Interpretation and review of laboratory results Abnormal [facility] No Panel Informationon 08-22 [facility] T4 FREE/FREE THYROXINEon Free T4 [Mass/Vol] 0.7 ng/dL Low 0.9 - 1.7 ng/dL [facility] T4 Free SerPl-mCncon 025 Free T4 [Mass/Vol] 0.7 ng/dL Low 0.9-1.7 [facility] Comment on above: Order Comment: Speci jillian Type: BLOOD SPECIMEN Ordering Facility: [facility] Address: [address] [place] [address] Performed By: #### 3 016-3, 3024-7 #### [facility] CLIA [id number] [address] [place] [address] [place] THYROID STIMULATING HORMONEo n 08-22-2024 TSH Qn 2.58 m[IU]/L [facility] Comment on above: If the patient is pr egnant, TSH reference range varies by gestational period: First Trimester (weeks 9-12): 0.180-2.990 mIU/L Second Trimester: 0.110-3.980 mIU/L Third Trimester: 0.480-4.710 mIU/L Homer Caputo et al. A Practical Approach for the Verifications and Determination of Site- and Trimester-Specific Reference Intervals for Thyroid Function tests in . Thyroid, 2019:29:3:412-420. Moose Lopez, et al. 2017 Guidelines of the [place] Thyroid Association for the Diagnosis and Management of Thyroid Disease during and the . Thyroid, 2017:27:3:315-389. TSH Qnon 08-22-2024 Interpretation and review of laboratory results Normal [facility] TSH SerPl-aCncon 08-22-2024 TSH Qn 2.580 m[IU]/L Normal 0.270-4.200 [facility] Comment on above: Order Comment: Selam walsh Type: BLOOD SPECIMEN Ordering Facility: [facility] Address: [address] [place] [address] Result Comment: If t he patient is , TSH reference range varies by gestational period: First Trimester (weeks 9-12): 0.180-2.990 mIU/L Second Trimester: 0.110-3.980 mIU/L Third Trimester: 0.480-4.710 mIU/L Homer Caputo et al. A Practical Approach for the Verifications and Determination of Site- and Trimester-Specific Reference Intervals for Thyroid Function tests in . Thyroid, 2019:29:3:412-420. Moose Lopez, et al. 2017 Guidelines of the [place] [employer] Association for the Diagnosis and Management of Thyroid Disease during and the . Thyroid, 2017:27:3:315-389. Performed By: #### 7 3752-8, 5195-3, 25773-1 #### [facility] CLIA [id number] [address] [place] [address] Examination level ultrasound on 07-25-2024 Indication Early anatomic survey Maternal obesity, BMI >35, Vanishing twin, Advanced maternal age Impression The patient is referred for an early anatomic survey because of identified risk factors. - Single, live, intrauterine . - biometry is consistent with the established gestational age. - No malformations were visualized on an early anatomic assessment, although some anatomical structures were suboptimally seen as detailed below. - The amniotic fluid volume is normal amount. - The placenta is anterior. - Not all structural malformations can be detected by ultrasound examination. Recommendations - A detailed exam at 20 weeks for increased risk. - Additional follow up as clinically indicated. Maternal Assessment Height 165 cm Height (ft) 5 ft Height (in) 5 in Physical Exam Initial weight (lb) 213 lb Initial BMI 35.45 kg/m Maternal assessment other: 4 Para 3 REMOTE READ Method Transabdominal ultrasound examination Davies . Number of fetuses: 1 Dating LMP on: 04/02/2024 GA by LMP 16 w + 2 d VENICE by LMP: 01/07/2025 GA by prior assessment 16 w + 2 d VENICE by prior assessment: 01/07/2025 Ultrasound examination on: 07/25/2024 GA by U/S based upon: AC, BPD, Femur, HC GA by U/S 16 w + 6 d VENICE by U/S: 01/03/2025 Assigned: based on stated VENICE, selected on 07/04/2024 Assigned GA 16 w + 2 d Assigned VENICE: 01/07/2025 General Evaluation Cardiac activity present. FHR 161 bpm. movements: present. Presentation: breech Placenta: Placental site: anterior Umbilical cord: Cord vessels: 3 vessel cord Amniotic fluid: Amount of AF: normal amount. MVP 4.8 cm Biometry Standard BPD 34.1 mm 16w 4d 60% Hadlock OFD 47.7 mm 16w 3d 84% Nicolaides HC 132.2 mm 16w 4d 57% Felipe Cerebellum tr 16.2 mm 16w 4d 47% Hill AC 118.4 mm 17w 4d 88% Hadlock Femur 21.9 mm 16w 4d 67% Felipe Humerus 21.8 mm 16w 4d 68% Felipe EFW 177 g 16w 6d 84% Hadlock EFW (lb) 0 lb EFW (oz) 6 oz EFW by: Hadlock (HC-AC-FL) Extended Prop Maker 4.7 mm Extremities / Bony Struc FL / HC 0.17 70% Hadlock Other Structures FHR 161 bpm Anatomy Cranium: normal Lateral ventricles: normal Choroid plexus: normal Midline falx: normal Cerebellum: normal Cisterna magna: normal Lips: normal 4-chamber view: normal RVOT view: suboptimally visualized LVOT view: normal 3-vessel view: normal 1-vufgar-bwdakzv view: normal Heart / Thorax Diaphragm: normal Cord insertion: normal Stomach: normal Kidneys: normal Bladder: normal Cervical spine: normal Thoracic spine: normal Lumbar spine: normal Sacral spine: normal Arms: normal Legs: normal Rt upper arm: normal Rt forearm: normal Rt hand: normal Lt upper arm: normal Lt forearm: normal Lt hand: normal Rt upper leg: normal Rt lower leg: normal Rt foot: normal Lt upper leg: normal Lt lower leg: normal Lt foot: normal sex: female Wants to know sex: yes Maternal Structures Uterus / Cervix Uterus: Visualized Cervix: Visualized Approach: Transabdominal Cervical length 33.9 mm Ovaries / Tubes / Adnexa Rt ovary: Visualized Lt ovary: Visualized Performed By: Juliana Fischer RDMS, RVT Read By: Berto Whitley M.D. MATERNAL MEDICINE [facility] Radiology Study observation (narrative) [facility] Vania 07-04-2024 CNPN Telephone (OBGYWM) NENA LEIVA ([id number]) 1990 F Date Time Provider Department 07/04/24 JOE BOYCE OBGYWM During your visit today, we recorded the following information about you: Kristen Chang RN 07/04/2024 4:54 PM Signed 13w2d Patient needs 16 week anatomy. Placed 07/25 @ 11 AM on hold. Will need to attach order and officially schedule once order is placed after today's visit with SW. GILMAR Cottrell Lindsey, RN 07/08/2024 10:02 AM Signed Early anatomy ultrasound scheduled. [employer] message sent to patient. Juliana Huston RN Allergies As of Date: 07/04/2024 Noted Allergy Reaction BEES 07/07/2008 7 - Swelling LATEX 07/07/2008 4 - Hives Date Reviewed: 07/04/2024 Reviewed by: Jennifer Aguayo LPN - Fully Assessed Reason for Visit: Appointment [186] Orders [681] Primary Visit Diagnosis:Twin with single intrauterine , first trimester, fetus 1 ([facility]) [O31.21X1] Other Visit Diagnoses:13 weeks gestation of ([facility]) [Z3A.13] Obesity affecting in second trimester, unspecified obesity type ([facility]) [O99.212] Order(s):OBSTETRIC ULTRASOUND [facility] [[id number]] Order #: [id number]: 1 FUTURE Prescriptions as of 07/08/2024 - thyroid ([facility] [facility]CH[facility] THYROID) 120 mg tablet Take 1 tablet PO 5 days a week and 2 tablets PO 2 days a week - aspirin, enteric coated (ECOTRIN LOW STRENGTH) 81 mg EC tablet Take 1 tablet by mouth once daily. - PNV no.95/ferrous fum/folic ac ( ORAL) Take 2 capsules by mouth once daily. - Magnesium Oxide 500 mg magnesium tab Take 500 mg by mouth once daily. - L.acid,para-B.bifidum- S.therm (QUAD-PROBIOTIC) 8 billion cell cap Take by mouth once daily. - cetirizine (ZYRTEC) 10 mg tablet Problem List As Of Date 07/04/2024 Noted Resolved Hypothyroidism complicating [O99.280,*10/14/2013 Normal , first [Z34.00] 11/06/2013 08/10/2014 Rh negative state in antepartum period [O26.899*11/07/2013 Acquired hypothyroidism [E03.9] 01/21/2015 01/23/2019 Malaise and fatigue [R53.81, R53.83] 07/23/2015 03/28/2018 Multinodular goiter [E04.2] 08/26/2015 Impaired fasting glucose [R73.01] 10/27/2015 11/01/2015 Angular cheilitis [K13.0] 12/24/2015 03/28/2018 Well adult exam [Z00.00] 12/24/2015 03/28/2018 Thyroiditis [E06.9] 03/24/2016 03/28/2018 Mold exposure [Z77.120] 08/03/2016 03/28/2018 Disorder of thyroid, antepartum [O99.280, E07.9]03/14/2018 03/28/2018 Obesity in [O99.210] 03/14/2018 03/28/2018 Excessive weight gain during , antepar*03/14/2018 03/28/2018 Family history of congenital heart defect [Z82.*03/14/2018 Patient request for diagnostic testing [Z01.89] 03/14/2018 05/30/2019 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] 04/05/2018 01/23/2019 Routine physical examination [Z00.00] 08/07/2018 01/23/2019 Hypothyroidism, acquired [E03.9] 08/07/2018 History of loss in prior , c*12/19/2018 01/23/2019 Nausea and vomiting in [O21.9] 12/19/2018 05/30/2019 Excessive weight gain during , deliver*12/19/2018 05/23/2024 Obesity in , antepartum (HCC) [O99.210]12/19/2018 05/23/2024 Twin gestation in first trimester (HCC) [O30.00*01/23/2019 Positive GBS test [B95.1] 06/30/2019 05/23/2024 Class 2 obesity with body mass index (BMI) of 3*07/21/2023 Wellness examination [Z00.00] 07/21/2023 05/23/2024 Acquired hypothyroidism [E03.9] 07/21/2023 High-risk , multigravida of advanced m*05/23/2024 Twin with single intrauterine , *06/05/2024 Encounter Status:Closed by JULIANA HUSTON on 07/08/24 Normal [facility] T4 Free SerPl-mCncon 025 Free T4 [Mass/Vol] 0.7 ng/dL Low 0.9-1.7 [facility] Comment on above: Order Comment: Selam walsh Type: BLOOD SPECIMEN Ordering Facility: [facility] Address: [address] [place] [address] Performed By: #### 3 016-3, 3024-7 #### [facility] CLIA [id number] [address] [place] [address] [place] TSH SerPl-aCncon 07-04-2024 TSH Qn 3.350 m[IU]/L Normal 0.270-4.200 [facility] Comment on above: Order Comment: Selam walsh Type: BLOOD SPECIMEN Ordering Facility: [facility] Address: [address] [place] [address] Result Comment: If t he patient is , TSH reference range varies by gestational period: First Trimester (weeks 9-12): 0.180-2.990 mIU/L Second Trimester: 0.110-3.980 mIU/L Third Trimester: 0.480-4.710 mIU/L Homer Caputo et al. A Practical Approach for the Verifications and Determination of Site- and Trimester-Specific Reference Intervals for Thyroid Function tests in . Thyroid, 2019:29:3:412-420. Moose E, et al. 2017 Guidelines of the [place] Thy[employer] Association for the Diagnosis and Management of Thyroid Disease during and the . Thyroid, 2017:27:3:315-389. Performed By: #### 3 016-3, 3024-7 #### [facility] CLIA [id number] [address] [place] [address] [place] CBC W Auto Differential pane l (Bld)on 06-12-2024 Basophils (Bld) [#/Vol] 0.05 10*3/uL Normal <0.11 [facility] Comment on above: Order Comment: Speci men Type: BLOOD SPECIMEN Ordering Facility: [facility] Address: [address] [place] [address] Performed By: #### 7 3752-8, 5195-3, 84173-4 #### [facility] CLIA [id number] [address] [place] [address] [place] Basophils/100 WBC (Bld) 0.6 % Normal [facility] Comment on above: Order Comment: Speci men Type: BLOOD SPECIMEN Ordering Facility: [facility] Address: [address] [place] [address] Performed By: #### 7 3752-8, 5195-3, 38328-1 #### [facility] CLIA [id number] [address] [place] [address] [place] Differential cell count method Nom (Bld) Auto Normal [facility] Comment on above: Order Comment: Speci men Type: BLOOD SPECIMEN Ordering Facility: [facility] Address: [address] [place] [address] Performed By: #### 7 3752-8, 5195-3, 24848-7 #### [facility] CLIA [id number] [address] [place] [address] [place] Eosinophils (Bld) [#/Vol] 0.32 10*3/uL Normal <0.46 [facility] Comment on above: Order Comment: Speci men Type: BLOOD SPECIMEN Ordering Facility: [facility] Address: [address] [place] [address] Performed By: #### 7 3752-8, 5195-3, 36748-4 #### [facility] CLIA [id number] [address] [place] [address] [place] Eosinophils/100 WBC (Bld) 3.6 % Normal [facility] Comment on above: Order Comment: Speci men Type: BLOOD SPECIMEN Ordering Facility: [facility] Address: [address] [place] [address] Performed By: #### 7 3752-8, 5195-3, 18251-0 #### [facility] CLIA [id number] [address] [place] [address] [place] Erythrocyte distribution width (RBC) [Ratio] 12.8 % Normal 11.5-15.0 [facility] Comment on above: Order Comment: Speci men Type: BLOOD SPECIMEN Ordering Facility: [facility] Address: [address] [place] [address] Performed By: #### 7 3752-8, 5195-3, 49536-3 #### [facility] CLIA [id number] [address] [place] [address] [place] Hematocrit (Bld) [Volume fraction] 40.1 % Normal 36.0-46.0 [facility] Comment on above: Order Comment: Speci men Type: BLOOD SPECIMEN Ordering Facility: [facility] Address: [address] [place] [address] Performed By: #### 7 3752-8, 5195-3, 49188-4 #### [facility] CLIA [id number] [address] [place] [address] [place] Hemoglobin (Bld) [Mass/Vol] 13.5 g/dL Normal 11.5-15.5 [facility] Comment on above: Order Comment: Speci men Type: BLOOD SPECIMEN Ordering Facility: [facility] Address: [address] [place] [address] Performed By: #### 7 3752-8, 5-3, 40814-5 #### [facility] CLIA [id number] [address] [place] [address] [place] Immature granulocytes (Bld) [#/Vol] 0.05 10*3/uL Normal <0.10 [facility] Comment on above: Order Comment: Speci men Type: BLOOD SPECIMEN Ordering Facility: [facility] Address: [address] [place] [address] Performed By: #### 7 3752-8, 5194-3, 11756-4 #### [facility] CLIA [id number] [address] [place] [address] [place] Immature granulocytes/100 WBC (Bld) 0.6 % Normal [facility] Comment on above: Order Comment: Speci men Type: BLOOD SPECIMEN Ordering Facility: [facility] Address: [address] [place] [address] Performed By: #### 7 3752-8, 3, 56069-4 #### [facility] CLIA [id number] [address] [place] [address] [place] Lymphocytes (Bld) [#/Vol] 2.44 10*3/uL Normal 1.00-4.00 [facility] Comment on above: Order Comment: Speci men Type: BLOOD SPECIMEN Ordering Facility: [facility] Address: [address] [place] [address] Performed By: #### 7 3752-8, 3, 76998-2 #### [facility] CLIA [id number] [address] [place] [address] [place] Lymphocytes/100 WBC (Bld) 27.4 % Normal [facility] Comment on above: Order Comment: Speci men Type: BLOOD SPECIMEN Ordering Facility: [facility] Address: [address] [place] [address] Performed By: #### 7 3752-8, 5194-3, 90773-8 #### [facility] CLIA [id number] [address] [place] [address] [place] MCH (RBC) [Entitic mass] 27.7 pg Normal 26.0-34.0 [facility] Comment on above: Order Comment: Speci men Type: BLOOD SPECIMEN Ordering Facility: [facility] Address: [address] [place] [address] Performed By: #### 7 3752-8, 519-3, 97762-3 #### [facility] CLIA [id number] [address] [place] [address] [place] MCHC (RBC) [Mass/Vol] 33.7 g/dL Normal 30.5-36.0 [facility] Comment on above: Order Comment: Speci men Type: BLOOD SPECIMEN Ordering Facility: [facility] Address: [address] [place] [address] Performed By: #### 7 3752-8, 3, 35278-5 #### [facility] CLIA [id number] [address] [place] [address] [place] MCV (RBC) [Entitic vol] 82.3 fL Normal 80.0-100.0 [facility] Comment on above: Order Comment: Speci men Type: BLOOD SPECIMEN Ordering Facility: [facility] Address: [address] [place] [address] Performed By: #### 7 3752-8, 53, 75593-9 #### [facility] CLIA [id number] [address] [place] [address] [place] Monocytes (Bld) [#/Vol] 0.54 10*3/uL Normal <0.87 [facility] Comment on above: Order Comment: Speci men Type: BLOOD SPECIMEN Ordering Facility: [facility] Address: [address] [place] [address] Performed By: #### 7 3752-8, 5193, 24771-6 #### [facility] CLIA [id number] [address] [place] [address] [place] Monocytes/100 WBC (Bld) 6.1 % Normal [facility] Comment on above: Order Comment: Speci men Type: BLOOD SPECIMEN Ordering Facility: [facility] Address: [address] [place] [address] Performed By: #### 7 3752-8, 5195-3, 83825-1 #### [facility] CLIA [id number] [address] [place], [place] [address] [place] Neutrophils (Bld) [#/Vol] 5.52 10*3/uL Normal 1.45-7.50 [facility] Comment on above: Order Comment: Speci men Type: BLOOD SPECIMEN Ordering Facility: [facility] Address: [address] [place] [address] Performed By: #### 7 3752-8, 5195-3, 65199-1 #### [facility] CLIA [id number] [address] [place] [address] [place] Neutrophils/100 WBC (Bld) 61.7 % Normal [facility] Comment on above: Order Comment: Speci men Type: BLOOD SPECIMEN Ordering Facility: [facility] Address: [address] [place] [address] Performed By: #### 7 3752-8, 5195-3, 54099-2 #### [facility] CLIA [id number] [address] [place], [place] [address] [place] Nucleated RBC (Bld) [#/Vol] 10*3/uL Normal <0.01 [facility] Comment on above: Order Comment: Speci men Type: BLOOD SPECIMEN Ordering Facility: [facility] Address: [address] [place] [address] Performed By: #### 7 3752-8, 5195-3, 33872-6 #### [facility] CLIA [id number] [address] [place] [address] [place] Nucleated RBC/100 WBC (Bld) [Ratio] 0.0 /100 WBC Normal [facility] Comment on above: Order Comment: Speci men Type: BLOOD SPECIMEN Ordering Facility: [facility] Address: [address] [place] [address] Performed By: #### 7 3752-8, 5195-3, 48545-9 #### [facility] CLIA [id number] [address] [place] [address] [place] Platelet mean volume (Bld) [Entitic vol] 9.1 fL Normal 9.0-12.7 [facility] Comment on above: Order Comment: Speci men Type: BLOOD SPECIMEN Ordering Facility: [facility] Address: [address] [place] [address] Performed By: #### 7 3752-8, 5195-3, 25961-6 #### [facility] CLIA [id number] [address] [place] [address] [place] Platelets (Bld) [#/Vol] 240 10*3/uL Normal 150-400 [facility] Comment on above: Order Comment: Speci men Type: BLOOD SPECIMEN Ordering Facility: [facility] Address: [address] [place] [address] Performed By: #### 7 3752-8, 5195-3, 04883-4 #### [facility] CLIA [id number] [address] [place] [address] [place] RBC (Bld) [#/Vol] 4.87 10*6/uL Normal 3.90-5.20 [facility] Comment on above: Order Comment: Speci men Type: BLOOD SPECIMEN Ordering Facility: [facility] Address: [address] [place] [address] Performed By: #### 7 3752-8, 5195-3, 87283-3 #### [facility] CLIA [id number] [address] [place] [address] [place] WBC (Bld) [#/Vol] 8.92 10*3/uL Normal 3.70-11.00 [facility] Comment on above: Order Comment: Speci men Type: BLOOD SPECIMEN Ordering Facility: [facility] Address: [address] [place] [address] Performed By: #### 7 3752-8, 5195-3, 72836-2 #### [facility] CLIA [id number] [address] [place] [address] [place] HBV surface Ag Ser Qlon 05-0 HBV surface Ag Ql (S) Negative Normal Negative [facility] Comment on above: Order Comment: Speci men Type: BLOOD SPECIMEN Ordering Facility: [facility] Address: [address] [place] [address] Performed By: #### 7 3752-8, 5195-3, 54588-6 #### [facility] CLIA [id number] [address] [place] [address] [place] HCV Ab Ser Qlon 06-12-2024 HCV Ab Ql (S) Negative Normal Negative [facility] Comment on above: Order Comment: Speci men Type: BLOOD SPECIMEN Ordering Facility: [facility] Address: [address] [place] [address] Result Comment: The result suggests no evidence of infection with Hepatitis C virus. Should recent infection be suspected, repeat testing may be considered 4-6 weeks after this draw. Performed By: #### 3 016-3, 3024-7 #### [facility] CLIA [id number] [address] [place] [address] [place] HIV 1+2 Ab IA Qlon HIV 1 and 2 Ab IA.rapid Nom (S/P/Bld) Normal [facility] Comment on above: Order Comment: Speci men Type: BLOOD SPECIMEN Ordering Facility: [facility] Address: [address] [place] [address] Result Comment: Test not indicated. Performed By: #### 7 3752-8, 5195-3, 49759-0 #### [facility] CLIA [id number] [address] [place] [address] [place] HIV 1+2 Ab+HIV1 p24 Ag IA Ql Non-Reactive Normal Nonreactive [facility] Comment on above: Order Comment: Speci men Type: BLOOD SPECIMEN Ordering Facility: [facility] Address: [address] [place] [address] Performed By: #### 7 3752-8, 5195-3, 41781-2 #### [facility] CLIA [id number] [address] [place] [address] [place] HIV immunoassay testing algorithm interpretation (S/P/Bld) [Interp] Normal [facility] Comment on above: Order Comment: Speci men Type: BLOOD SPECIMEN Ordering Facility: [facility] Address: [address] [place] [address] Result Comment: No e vidence of HIV-1 or HIV-2 infection. Should recent infection be suspected, repeat testing may be considered 2-3 weeks after this draw. [place] Rev. Code 3701.243(E): This information has been disclosed to you from confidential records protected from disclosure by state law. You shall make no further disclosure of this information without the specific, written, and informed release of the individual to whom it pertains or as otherwise permitted by state law. A general authorization for the release of medical or other information is not sufficient for the purpose of the release of HIV test results or diagnoses. Performed By: #### 7 3752-8, 5195-3, 71571-6 #### [facility] CLIA [id number] [address] [place] [address] [place] HbA1c (Bld)on 06-12-2024 Average glucose Estimated from glycated hemoglobin (Bld) [Mass/Vol] 94 mg/dL Normal [facility] Comment on above: Order Comment: Speci men Type: BLOOD SPECIMEN Ordering Facility: [facility] Address: [address] [place] [address] Result Comment: eAG: (Estimated average glucose) is a calculated value from HgbA1c and is licensing representative of the average blood glucose level in the last 2-3 month period. Performed By: #### 7 3752-8, 5-3, #### [facility] CLIA [id number] [address] [place] [address] [place] HbA1c (Bld) [Mass fraction] 4.9 % Normal 4.3-5.6 [facility] Comment on above: Order Comment: Speci men Type: BLOOD SPECIMEN Ordering Facility: [facility] Address: [address] [place] [address] Result Comment: [place] Diabetes Association guidelines indicate that patients with HgbA1c in the range 5.7-6.4% are at increased risk for development of diabetes, and intervention by lifestyle modification may be beneficial. HgbA1c greater or equal to 6.5% is considered diagnostic of diabetes. Performed By: #### 7 3752-8, 5194-3, #### [facility] CLIA [id number] [address] [place] [address] [place] [id number] PLUSon 06-12-2024 Cell-free DNA./Cell-free DNA.total Dosage of chromosome-specific cfDNA (cfDNA) [Molar fraction] 12% Normal [facility] Comment on above: Order Comment: Speci men Type: BLOOD SPECIMEN Ordering Facility: [facility] Address: [address] [place] [address] Performed By: #### 7 3752-8, 5-3, #### [facility] CLIA [id number] [address] [place] [address] [place] Chr 13+18+21+X+Y aneuploidy Dosage of chromosome-specific cfDNA Ql (cfDNA) Negative Normal [facility] Comment on above: Order Comment: Speci men Type: BLOOD SPECIMEN Ordering Facility: [facility] Address: [address] [place] [address] Performed By: #### 7 3752-8, 5-3, 85932-7 #### [facility] CLIA [id number] [address] [place] [address] [place] Chr 21 trisomy Dosage of chromosome-specific cfDNA Ql (cfDNA) Negative Normal [facility] Comment on above: Order Comment: Speci men Type: BLOOD SPECIMEN Ordering Facility: [facility] Address: [address] [place] [address] Performed By: #### 7 3752-8, 5195-3, 27872-6 #### [facility] CLIA [id number] [address] [place] [address] [place] Chr X and Y aneuploidy risk Sequencing Ql (cfDNA) [Interp] Not detected Normal [facility] Comment on above: Order Comment: Speci men Type: BLOOD SPECIMEN Ordering Facility: [facility] Address: [address] [place] [address] Result Comment: Not Detected Not Detected Performed By: #### 7 3752-8, 5-3, 38966-1 #### [facility] CLIA [id number] [address] [place] [address] [place] Citation Isaiah (Reference lab test) Comment Normal [facility] Comment on above: Order Comment: Speci men Type: BLOOD SPECIMEN Ordering Facility: [facility] Address: [address] [place] [address] Result Comment: 1. P june CLIFFORD, et al. Daniela Med. 2012;14(3):296-305. 2. Barb SANZ et al. Prenat Diag. 2013;33(6):591-597. 3. Espinosa C, et al. Clin Chem. 2015 Apr;61(4):608-616. 4. Onesimo CLIFFORD et al. Daniela Med. 2011;13(11):913-920. 5. ACOG/[facility] Practice Bulletin No. 226, Nov 2019. Performed By: #### 7 3752-8, 5195-3, 19535-7 #### [facility] CLIA [id number] [address] [place] [address] [place] Gestational age Estimated from conception date Davies Normal [facility] Comment on above: Order Comment: Speci men Type: BLOOD SPECIMEN Ordering Facility: [facility] Address: [address] [place] [address] Performed By: #### 7 3752-8, 5195-3, 71485-8 #### [facility] CLIA [id number] [address] [place] [address] [place] GESTATIONALAGE AGE > OR = 9W Yes Normal [facility] Comment on above: Order Comment: Speci men Type: BLOOD SPECIMEN Ordering Facility: [facility] Address: [address] [place] [address] Performed By: #### 7 3752-8, 5195-3, 22614-5 #### [facility] CLIA [id number] [address] [place] [address] [place] Laboratory comment Isaiah (Report) Comment Normal [facility] Comment on above: Order Comment: Speci men Type: BLOOD SPECIMEN Ordering Facility: [facility] Address: [address] [place] [address] Result Comment: The MaterniT(R) 21 PLUS laboratory-developed test (LDT) analyzes circulating cell-free DNA from a maternal blood sample. This test is used for screening purposes and not diagnostic. Clinical correlation is recommended. Validation data on twin pregnancies is limited and the ability of this test to detect aneuploidy in higher multiple gestations has not yet been validated. Performed By: #### 7 3752-8, 5195-3, 74188-2 #### [facility] CLIA [id number] [address] [place] [address] [place] residency director name Nom (Provider) Comment Normal [facility] Comment on above: Order Comment: Speci men Type: BLOOD SPECIMEN Ordering Facility: [facility] Address: [address] [place] [address] Result Comment: This specimen showed an expected representation of chromosome 21, 18 and 13 material. Clinical correlation is suggested. Comment Moe Nagy MD, PhD, Director, Pantry Performed By: #### 7 3752-8, 5195-3, 30378-5 #### [facility] CLIA [id number] [address] [place] [address] [place] [address] [place] LIMITATIONS OF THE TEST Comment Normal [facility] Comment on above: Order Comment: Speci men Type: BLOOD SPECIMEN Ordering Facility: [facility] Address: [address] [place] [address] Result Comment: Monik lopez the results of these tests are highly reliable, discordant results, including inaccurate sex prediction, may occur due to placental, maternal, or mosaicism or neoplasm; vanishing twin; prior maternal organ transplant; or other causes. These tests are screening tests and not diagnostic; they do not replace the accuracy and precision of diagnosis with CVS or amniocentesis. A patient with a positive test result should be referred for genetic counseling and offered invasive diagnosis for confirmation of test results.[5] The results of this testing, including the benefits and limitations, should be discussed with a qualified healthcare provider. management decisions, including termination of the , should not be based on the results of these tests alone. The healthcare provider is responsible for the use of this information in the management of their patient. Sex chromosomal aneuploidies are not reportable for known multiple gestations. A negative result does not ensure an unaffected nor does it exclude the possibility of other chromosomal abnormalities or defects which are not a part of these tests. An uninformative result may be reported, the causes of which may include, but are not limited to, insufficient sequencing coverage, noise or artifacts in the region, amplification or sequencing bias, or insufficient fraction. These tests are not intended to identify pregnancies at risk for neural tube defects or ventral wall defects. Testing for whole chromosome abnormalities (including sex chromosomes) and for subchromosomal abnormalities could lead to the potential discovery of both and maternal genomic abnormalities that could have major, minor, or no, clinical significance. Evaluating the significance of a positive or a non-reportable result may involve both invasive testing and additional studies on the mother. Such investigations may lead to a diagnosis of maternal chromosomal or subchromosomal abnormalities, which on occasion may be associated with benign or malignant maternal neoplasms. These tests may not accurately identify triploidy, balanced rearrangements, or the precise location of subchromosomal duplications or deletions; these may be detected by diagnosis with CVS or amniocentesis. The ability to report results may be impacted by maternal BMI, maternal weight, maternal systemic lupus erythematosus (SLE) and/or by certain pharmaceutical agents such as low molecular weight heparin (for example: Lovenox(R), Xaparin(R), Clexane(R) and Fragmin(R)). Performed By: #### 7 3752-8, 5195-3, #### [facility] CLIA [id number] [address] [place] [address] [place] Monosomy X risk Dosage of chromosome-specific cfDNA Ql (Plasma cell-free+WBC DNA) [Interp] Not detected Normal [facility] Comment on above: Order Comment: Speci men Type: BLOOD SPECIMEN Ordering Facility: [facility] Address: [address] [place] [address] Performed By: #### 7 3752-8, 5195-3, #### [facility] CLIA [id number] [address] [place] [address] [place] NEGATIVE PREDICTIVE VALUE Note Normal [facility] Comment on above: Order Comment: Selam walsh Type: BLOOD SPECIMEN Ordering Facility: [facility] Address: [address] [place] [address] Result Comment: The Negative Predictive Value (NPV) for trisomy 21, 18, and 13 is greater than 99%. The NPV for SCA and ESS cannot be calculated as SCA and ESS are only reported when an abnormality is detected. Performed By: #### 7 3752-8, 5195-3, #### [facility] CLIA [id number] [address] [place] [address] [place] PERFORMANCE CHARACTERISTICS Note Normal [facility] Comment on above: Order Comment: Speci men Type: BLOOD SPECIMEN Ordering Facility: [facility] Address: [address] [place] [address] Result Comment: ! Sex ! Accuracy: 99.4% ! ! ! ! Region (associated syndrome) ! Est. Sens# ! Est. Spec ! ! ! ! Trisomy 21 (Down Syndrome) ! 99.1% ! 99.9% ! ! ! ! Trisomy 18 (Trivedi Syndrome) ! >99.9% ! 99.6% ! ! ! ! Trisomy 13 (Patau Syndrome) ! 91.7% ! 99.7% ! ! ! ! Sex Chromosome Aneuploidies## ! 96.2% ! 99.7% ! ! ! * As reported in ISCA database nstd37 [https://www.ncbi.nlm.nih.gov/dbvar/studies/nstd37/ ] # Estimated Sensitivity. Sensitivity estimated across the observed size distribution of each syndrome [per ISCA database nstd37] and across the range of fractions observed in routine clinical NIPT. Actual sensitivity can also be influenced by other factors such as the size of the event, total sequence counts, amplification bias, or sequence bias. ## Davies gestation only. Performed By: #### 7 3752-8, 5195-3, 65301-5 #### [facility] CLIA [id number] [address] [place] [address] STATES [facility] POSITIVE PREDICTIVE VALUE N/A Normal [facility] Comment on above: Order Comment: Speci jillian Type: BLOOD SPECIMEN Ordering Facility: [facility] Address: [address] [place] [address] Performed By: #### 7 3752-8, 5195-3, 60082-8 #### [facility] CLIA [id number] [address] [place] [address] [place] Reference Lab Test Method Comment Normal [facility] Comment on above: Order Comment: Selam walsh Type: BLOOD SPECIMEN Ordering Facility: [facility] Address: [address] [place] [address] Result Comment: See Notes Circulating cell-free DNA was purified from the plasma component of maternal blood. The extracted DNA was then converted into a genomic DNA library for aneuploidy analysis of chromosomes 21, 18, and 13 via next generation sequencing.[1] Optional findings based on the test order include sex chromosome aneuploidy (SCA)[2], and enhanced sequencing series (ESS)[3], which will only be reported on as an additional finding when an abnormality is detected. SCA testing includes information on X and Y representation, while ESS testing includes deletions in selected regions (22q, 15q, 11q, 8q, 5p, 4p, 1p) and trisomy of chromosomes 16 and 22. Performed By: #### 7 3752-8, 5195-3, 16667-5 #### [facility] CLIA [id number] [address] [place], [place] [address] [place] Service comment (Unsp spec) [Interp] Comment Normal [facility] Comment on above: Order Comment: Speci men Type: BLOOD SPECIMEN Ordering Facility: [facility] Address: [address] [place] [address] Result Comment: See Notes [employer] is a subsidiary of [employer], using the brand [employer]. This test was developed and its performance characteristics determined by [employer]. It has not been cleared or approved by the Food and Drug Administration. This laboratory is certified under the Clinical Laboratory Improvement Amendments (CLIA) as qualified to perform high complexity clinical laboratory testing and accredited by the [employer] ([employer]). If there is future clinical need for adding MaterniT GENOME testing, this specimen will be available until term. [facility] samples will not be retained beyond 60 days. [facility] patients will have to send a new sample for re-sequencing ([facility] Test Code: [id number]). Performed By: #### 7 3752-8, 5195-3, 55651-4 #### [facility] CLIA [id number] [address] [place] [address] [place] Sex Dosage of chromosome-specific cfDNA Nom (cfDNA) Comment Normal [facility] Comment on above: Order Comment: Speci men Type: BLOOD SPECIMEN Ordering Facility: [facility] Address: [address] [place] [address] Result Comment: Cons istent with Female Performed By: #### 7 3752-8, 5195-3, 09793-2 #### [facility] CLIA [id number] [address] [place] [address] [place] Test performance information Isaiah (Unsp spec) Comment Normal [facility] Comment on above: Order Comment: Speci men Type: BLOOD SPECIMEN Ordering Facility: [facility] Address: [address] [place] [address] Result Comment: The performance characteristics of the MaterniT(R) 21 PLUS laboratory-developed test (LDT) have been determined in a clinical validation study with women at increased risk for chromosomal aneuploidy.[1-4] Performed By: #### 7 3752-8, 5-3, #### [facility] CLIA [id number] [address] [place] [address] [place] Trisomy 13 risk Dosage of chromosome-specific cfDNA Ql (cfDNA) [Interp] Negative Normal [facility] Comment on above: Order Comment: Speci men Type: BLOOD SPECIMEN Ordering Facility: [facility] Address: [address] [place] [address] Performed By: #### 7 3752-8, 5194-3, #### [facility] CLIA [id number] [address] [place] [address] [place] Trisomy 18 risk Dosage of chromosome-specific cfDNA Ql (Plasma cell-free+WBC DNA) [Interp] Negative Normal [facility] Comment on above: Order Comment: Speci men Type: BLOOD SPECIMEN Ordering Facility: [facility] Address: [address] [place] [address] Performed By: #### 7 3752-8, 5194-3, #### [facility] CLIA [id number] [address] [place] [address] [place] RUBELLA IGG ANTIBODYon 06-12 RUBELLA IGG AB, QUAL Positive Normal Positive [facility] Comment on above: Order Comment: Speci men Type: BLOOD SPECIMENOrdering Facility: [facility] Address: [address] [place] [address] Result Comment: The result suggests recent or past exposure to Rubella virus or history of Rubella vaccination. Positive result may also be seen due to presence of passively-transferred antibodies. Please correlate with patient's history. Performed By: #### R UBIGG ####[facility] [id number] [place] [address] [place] Reagin and Treponema pallidu m IgG and IgM [Interp]on 06-12-2024 T. pallidum IgG+IgM IA Ql (S) Non-Reactive Normal Nonreactive [facility] Comment on above: Order Comment: Speci men Type: BLOOD SPECIMEN Ordering Facility: [facility] Address: [address] [place] [address] Performed By: #### 7 3752-8, 5-3, 89047-9 #### [facility] CLIA [id number] [address] [place] [address] [place] Reagin+T pallidum IgG+IgM Se rPl-Impon 06-12-2024 Reagin and Treponema pallidum IgG and IgM [Interp] Cannot exclude recent Treponemal infection if specimen collected within 7-10 days after appearance of suspect lesions or 2-3 weeks after an exposure. Clinical correlation is required. Normal [facility] Comment on above: Order Comment: Speci men Type: BLOOD SPECIMEN Ordering Facility: [facility] Address: [address] [place] [address] Performed By: #### 7 3752-8, 5194-3, 69636-3 #### [facility] CLIA [id number] [address] [place] [address] [place] TYPE + SCREEN PRENATALon ABO A Normal [facility] Comment on above: Order Comment: Speci men Type: BLOOD SPECIMEN Ordering Facility: [facility] Address: [address] [place] [address] Performed By: #### 7 3752-8, 5194-3, 17047-0 #### [facility] CLIA [id number] [address] [place] [address] [place] Rh Nom (Bld) Negative Normal [facility] Comment on above: Order Comment: Speci men Type: BLOOD SPECIMEN Ordering Facility: [facility] Address: [address] [place] [address] Performed By: #### 7 3752-8, 5194-3, 35158-0 #### [facility] CLIA [id number] [address] [place], [place] [address] [place] [id number] [place] TYPE AND SCREEN EXPIRATION 06/15/2024 23:59 Normal [facility] Comment on above: Order Comment: Speci men Type: BLOOD SPECIMEN Ordering Facility: [facility] Address: [address] [place] [address] Performed By: #### 7 3752-8, 5195-3, 92219-1 #### [facility] CLIA [id number] [address] [place], [place] [address] [place] [id number] [facility] [place] CNPNon 05-24-2024 CNPN Telephone (FAMWS) NENA LEIVA ([id number]) 1990 F Date Time Provider Department 05/24/24 [facility] your visit today, we recorded the following information about you: Colleen Mendieta MA 05/24/2024 9:[address] Champion, Just letting you know u saw TSH came back high. My ultrasound today showed twins again. I?ve been off my injection for 7.5 weeks. Other than that nothing has changed, except being again. I take 2 pills daily, except Saturdays I take 3. That was what I?d been on since the last time things were high. Thanks for all your help! Miguelito Carpenter DO 05/26/2024 7:52 AM Signed Please give her my congratulations on her ! Please have her increase dose of her thyroid medication as below and recheck labs in 4 weeks after this change Miguelito Champion DO The following approved medication requests have been transmitted electronically. Requested Prescriptions Signed Prescriptions Disp Refills thyroid (LABORER ORCHARD THYROID) 120 mg tablet 140 tablet 3 Sig: Take 1 tablet PO 5 days a week and 2 tablets PO 2 days a week Authorizing Provider: MIGUELITO CHAMPION DO Rowland, Kathryn, MA 05/26/2024 9:44 AM Signed Pt notified of results via [facility]OMODOhart. Glo Smith Ma Allergies As of Date: 05/24/2024 Noted Allergy Reaction BEES 07/07/2008 7 - Swelling LATEX 07/07/2008 4 - Hives Date Reviewed: 05/23/2024 Reviewed by: Almita Sawyer LPN - Fully Assessed Reason for Visit: Results [95] Cmt: Primary Visit Diagnosis:Hypothyroidi sm, acquired [E03.9] Order(s):thyroid (LABORER ORCHARD THYROID) 120 mg tabletTake 1 tablet PO 5 days a week and 2 tablets PO 2 days a weekDisp: 140 tabletRfl: 3 THYROID STIMULATING HORMONE [SQTSH] Order #: [id number] FUTURE T4 FREE/FREE THYROXINE [SQFT4] Order #: [id number] FUTURE Prescriptions as of 05/26/2024 - thyroid (LABORER ORCHARD THYROID) 120 mg tablet Take 1 tablet PO 5 days a week and 2 tablets PO 2 days a week - aspirin, enteric coated (ECOTRIN LOW STRENGTH) 81 mg EC tablet Take 1 tablet by mouth once daily. - PNV no.95/ferrous fum/folic ac ( ORAL) Take 2 capsules by mouth once daily. - Magnesium Oxide 500 mg magnesium tab Take 500 mg by mouth once daily. - L.acid,para-B.bifidum- S.therm (QUAD-PROBIOTIC) 8 billion cell cap Take by mouth once daily. - cetirizine (ZYRTEC) 10 mg tablet Problem List As Of Date 05/24/2024 Noted Resolved Hypothyroidism complicating [O99.280,*10/14/2013 Normal , first [Z34.00] 11/06/2013 08/10/2014 Rh negative state in antepartum period [O26.899*11/07/2013 Acquired hypothyroidism [E03.9] 01/21/2015 01/23/2019 Malaise and fatigue [R53.81, R53.83] 07/23/2015 03/28/2018 Multinodular goiter [E04.2] 08/26/2015 Impaired fasting glucose [R73.01] 10/27/2015 11/01/2015 Angular cheilitis [K13.0] 12/24/2015 03/28/2018 Well adult exam [Z00.00] 12/24/2015 03/28/2018 Thyroiditis [E06.9] 03/24/2016 03/28/2018 Mold exposure [Z77.120] 08/03/2016 03/28/2018 Disorder of thyroid, antepartum [O99.280, E07.9]03/14/2018 03/28/2018 Obesity in [O99.210] 03/14/2018 03/28/2018 Excessive weight gain during , antepar*03/14/2018 03/28/2018 Family history of congenital heart defect [Z82.*03/14/2018 Patient request for diagnostic testing [Z01.89] 03/14/2018 05/30/2019 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] 04/05/2018 01/23/2019 Routine physical examination [Z00.00] 08/07/2018 01/23/2019 Hypothyroidism, acquired [E03.9] 08/07/2018 History of loss in prior , c*12/19/2018 01/23/2019 Nausea and vomiting in [O21.9] 12/19/2018 05/30/2019 Excessive weight gain during , deliver*12/19/2018 05/23/2024 Obesity in , antepartum (HCC) [O99.210]12/19/2018 05/23/2024 Twin gestation in first trimester (HCC) [O30.00*01/23/2019 Positive GBS test [B95.1] 06/30/2019 05/23/2024 Class 2 obesity with body mass index (BMI) of 3*07/21/2023 Wellness examination [Z00.00] 07/21/2023 05/23/2024 Acquired hypothyroidism [E03.9] 07/21/2023 High-risk , multigravida of advanced m*05/23/2024 Prescriptions ordered this encounter Disp Refills Start End THYROID (PORK) 120 MG TABLET 140 * 3 05/26/2024 Sig: Take 1 tablet PO 5 days a week and 2 tablets PO 2 days a week Medications Discontinued During This Encounter Prescriptions - LABORER ORCHARD THYROID 60 mg tablet (Discontinued) TAKE 2 TABLETS BY MOUTH EVERY DAY Encounter Status:Closed by GLO SMITH on 05/26/24 Normal [facility] Bacteria Ur Culton 5 Bacteria identified Cx Nom (U) ORGANISM ID: 1 >=100,000 CFU/ml Normal urogenital trina Normal [facility] Comment on above: Performed By: #### 7 3752-8, 5195-3, 08660-1 #### [facility] CLIA [id number] [address] [place] [address] [place] C. trachomatis+N. gonorrhoea e DNA SAMSON+probe Ql (Unsp spec)on 05-23-2024 C. trachomatis rRNA SAMSON+probe Ql (Unsp spec) Not detected Normal Not detected [facility] Comment on above: Order Comment: Speci men Type: BLOOD SPECIMEN Ordering Facility: [facility] Address: [address] [place] [address] Performed By: #### 7 3752-8, 5195-3, 44710-8 #### [facility] CLIA [id number] [address] [place] [address] [place] N. gonorrhoeae rRNA SAMSON+probe Ql (Unsp spec) Not detected Normal Not detected [facility] Comment on above: Order Comment: Speci men Type: BLOOD SPECIMEN Ordering Facility: [facility] Address: [address] [place] [address] Performed By: #### 7 3752-8, 5195-3, 60904-8 #### [facility] CLIA [id number] [address] [place] [address] [place] HIGH RISK HUMAN PAPILLOMA BIB (HPV), PCR FOR DETECTION AND GENOTYPINGon 05-23-2024 HPV 16 Ag Ql (Unsp spec) Not detected Normal Not detected [facility] Comment on above: Order Comment: Speci men Type: BLOOD SPECIMEN Ordering Facility: [facility] Address: [address] [place] [address] Performed By: #### 7 3752-8, 5195-3, 20324-8 #### [facility] CLIA [id number] [address] [place] [address] [place] HPV 18 Ag Ql (Unsp spec) Not detected Normal Not detected [facility] Comment on above: Order Comment: Speci men Type: BLOOD SPECIMEN Ordering Facility: [facility] Address: [address] [place] [address] Performed By: #### 7 3752-8, 5195-3, #### [facility] CLIA [id number] [address] [place] [address] [place] HPV 31+33+35+39+45+51+52 +56+58+59+66+68 DNA SAMSON+probe Ql (Cvx) Not detected Normal Not detected [facility] Comment on above: Order Comment: Speci men Type: BLOOD SPECIMEN Ordering Facility: [facility] Address: [address] [place] [address] Result Comment: High Risk HPV Other Type includes HPV types 31, 33, 35, 39, 45, 51, 52, 56, 58, 59, 66 and 68. Performed By: #### 7 3752-8, 5-3, 99178-1 #### [facility] CLIA [id number] [address] [place] [address] [place] PAP TESTon 05-23-2024 ADEQUACY Normal [facility] Comment on above: Order Comment: Speci men Type: BLOOD SPECIMEN Ordering Facility: [facility] Address: [address] [place] [address] Result Comment: Sati sfactory for interpretation. Transformation zone present Performed By: #### 7 3752-8, 5-3, #### [facility] CLIA [id number] [address] [place], [place] [address] [place] CASE REPORT Normal [facility] Comment on above: Order Comment: Speci men Type: BLOOD SPECIMEN Ordering Facility: [facility] Address: [address] [place] [address] Result Comment: Gyne cologic Cytology Report Case: [id number] Authorizing Provider: Shiloh Westfall APRN.CLINICAL THERAPIST Collected: 05/23/2024 09:08 AM Ordering Location: OB/Gynecology Received: 05/23/2024 12:22 PM First Screen: Gmitro, Darryl, [place], ASCP Specimen: Pap Test, ThinPrep, Cervix Performed By: #### 7 3752-8, 5195-3, 27258-6 #### [facility] CLIA [id number] [address] [place] [address] [place] CLINICAL HISTORY, CYTOLOGY, BLENDING MACHINE FEEDER Routine Exam Normal [facility] Comment on above: Order Comment: Speci men Type: BLOOD SPECIMEN Ordering Facility: [facility] Address: [address] [place] [address] Performed By: #### 7 3752-8, 5195-3, 34298-0 #### [facility] CLIA [id number] [address] [place] [address] [place] FINAL PERFORMING LAB Normal [facility] Comment on above: Order Comment: Speci men Type: BLOOD SPECIMEN Ordering Facility: [facility] Address: [address] [place] [address] Result Comment: Tech nical component, procurement specialist screening performed at [facility], [address] [place] [address] CLIA# [id number] Diagnostic interpretation performed at [facility], [address] [place], [place] [address] CLIA# [id number] Stunt Driver: Bassam Dawn M.D. Performed By: #### 7 3752-8, 5195-3, 34436-9 #### [facility] CLIA [id number] [address] [place] [address] [place] INTERPRETATION, CYTOLOGY, BLENDING MACHINE FEEDER Normal [facility] Comment on above: Order Comment: Speci men Type: BLOOD SPECIMEN Ordering Facility: [facility] Address: [address] [place] [address] Result Comment: Nega tive for intraepithelial lesion or malignancy. at 1427 EDT Performed By: #### 7 3752-8, 5195-3, 69761-9 #### [facility] CLIA [id number] [address] [place] [address] [place] LMP 04/02/2024 Normal [facility] Comment on above: Order Comment: Speci men Type: BLOOD SPECIMEN Ordering Facility: [facility] Address: [address] [place] [address] Performed By: #### 7 3752-8, 5194-3, 04827-5 #### [facility] CLIA [id number] [address] [place], [place] [address] [place] PAP DISCLAIMER COMMENT The Pap Smear is a screening test for cervical cancer. False negative results occur with all screening tests, emphasizing the need for rescreening at recommended intervals, and clinical correlation. Normal [facility] Comment on above: Order Comment: Speci men Type: BLOOD SPECIMEN Ordering Facility: [facility] Address: [address] [place] [address] Performed By: #### 7 3752-8, 5-3, 37676-7 #### [facility] CLIA [id number] [address] [place] [address] [place] PAP DIGITAL ART DIRECTOR COMMENT This specimen has be en analyzed by the ThinPrep Imaging System, an automated imaging and review system, which assists the laboratory in evaluating cells on ThinPrep Pap tests. Following automated imaging, selected narvaez from every slide are reviewed by a procurement specialist. 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 Confirmation of cardiac activity. Estimation of gestational age Impression Multiple intrauterine gestation 2 CRL is appropriate for clinical dates, corresponding to VENICE 01/07/25, cardiac activity is visualized, Twin B 1 week behind twin A Recommendations Follow up for repeat ultrasound in at least 14 days to confirm viability and gestation age Method Transvaginal ultrasound examination. View: Adequate visualization Davies . Number of embryos: 1 Dating LMP on: 04/02/2024 GA by LMP 7 w + 2 d VENICE by LMP: 01/07/2025 Ultrasound examination on: 05/23/2024 GA by U/S based upon: CRL GA by U/S 6 w + 5 d VENICE by U/S: 01/11/2025 Assigned: based on the LMP, selected on 05/23/2024 Assigned GA 7 w + 2 d Assigned VENICE: 01/07/2025 Biometry Standard CRL 8.0 mm 6w 5d 3% Hadlock Assessment Gestational sac: visualized Location: intrauterine Yolk sac: visualized Embryo: visualized CRL 8.0 mm 6w 5d 3% Hadlock Cardiac activity: present Other: 2 gestational sac, 2 yolk sac, 2 heartbeats Maternal Structures BMI 35 General Evaluation Cardiac activity present Performed By: Shiloh Westfall CNP Read By: Shiloh Westfall CNP MATERNAL MEDICINE [facility] Radiology Study observation (narrative) [facility] T4 Free SerPl-mCncon 025 Free T4 [Mass/Vol] 0.9 ng/dL Normal 0.9-1.7 [facility] Comment on above: Order Comment: Speci men Type: BLOOD SPECIMEN Ordering Facility: [facility] Address: [address] [place] [address] Performed By: #### 7 3752-8, 5195-3, 42858-4 #### [facility] CLIA [id number] [address] [place] [address] [place] TRICHOMONAS VAGINALIS NAATon 05-23-2024 T. vaginalis DNA SAMSON+probe Ql (Unsp spec) Not detected Normal Not detected [facility] Comment on above: Order Comment: Selam walsh Type: BLOOD SPECIMEN Ordering Facility: [facility] Address: [address] [place] [address] Performed By: #### 7 3752-8, 5195-3, 71549-6 #### [facility] CLIA [id number] [address] [place] [address] [place] TSH SerPl-aCncon 05-23-2024 TSH Qn 6.500 m[IU]/L High 0.270-4.200 [facility] Comment on above: Order Comment: Speci jillian Type: BLOOD SPECIMEN Ordering Facility: [facility] Address: [address] [place] [address] Result Comment: If t he patient is , TSH reference range varies by gestational period: First Trimester (weeks 9-12): 0.180-2.990 mIU/L Second Trimester: 0.110-3.980 mIU/L Third Trimester: 0.480-4.710 mIU/L Homer Caputo et al. A Practical Approach for the Verifications and Determination of Site- and Trimester-Specific Reference Intervals for Thyroid Function tests in . Thyroid, 2019:29:3:412-420. Moose Lopez, et al. 2017 Guidelines of the [place] Thyroid Association for the Diagnosis and Management of Thyroid Disease during and the . Thyroid, 2017:27:3:315-389. Performed By: #### 7 3752-8, 5195-3, 87714-2 #### [facility] CLIA [id number] [address] [place] [address] [place] CNPNon 05-05-2024 CNPN Telephone (OBGYWM) NENA LEIVA ([id number]) 1990 F Date Time Provider Department 05/05/24 DENAE RENTERIA OBWM During your visit today, we recorded the following information about you: Kristen Chang RN 05/05/2024 9:34 AM Signed LMP 05/31 Approximately 4w5d Patient has a hx of missed AB and partial molar . Denies cramping or bleeding. Asking for HCG levels for piece of mind. NOB is 05/23/24. GILMAR Cottrell Jessica, APRN.CNM 05/05/2024 11:46 AM Signed Please have patient make an appointment to review. Can be a virtual this week so we can make sure appropriate follow up as well. Thank you, ANITHA Caceres Lindsey, RN 05/05/2024 11:52 AM Signed Patient notified and declines to schedule an appointment at this time. Patient states she will just wait to be seen on 05/23. Will call if she changes her mind and would like appointment to have HCG levels done. Juliana Huston RN Allergies As of Date: 05/05/2024 Noted Allergy Reaction BEES 07/07/2008 7 - Swelling LATEX 07/07/2008 4 - Hives Date Reviewed: 07/20/2023 Reviewed by: Alyson Meza LPN - Fully Assessed Reason for Visit: Question (OB Question) [0752] Prescriptions as of 05/05/2024 - tirzepatide (MOUNJARO) 10 mg/0.5 mL pen injector Inject 10 mg subcutaneously one time a week. - LABORER ORCHARD THYROID 60 mg tablet TAKE 2 TABLETS BY MOUTH EVERY DAY - mebendazole (VERMOX) 100 mg chewable tablet Take 1 tablet PO once. Repeat dose in 2 weeks - multivit with calcium,iron,min (WOMEN'S DAILY MULTIVITAMIN ORAL) Take by mouth once daily. - Magnesium Oxide 500 mg magnesium tab Take 500 mg by mouth once daily. - L.acid,para-B.bifidum- S.therm (QUAD-PROBIOTIC) 8 billion cell cap Take by mouth once daily. - cetirizine (ZYRTEC) 10 mg tablet - Cholecalciferol, Vitamin D3, 50 mcg (2,000 unit) cap Take by mouth once daily. - EPINEPHrine (EPIPEN) 0.3 mg/0.3 mL (1:1,000) PnIj Use as needed following a bee sting Problem List As Of Date 05/05/2024 Noted Resolved Hypothyroidism complicating [O99.280,*10/14/2013 Normal , first [Z34.00] 11/06/2013 08/10/2014 Rh negative state in antepartum period [O26.899*11/07/2013 Acquired hypothyroidism [E03.9] 01/21/2015 01/23/2019 Malaise and fatigue [R53.81, R53.83] 07/23/2015 03/28/2018 Multinodular goiter [E04.2] 08/26/2015 Impaired fasting glucose [R73.01] 10/27/2015 11/01/2015 Angular cheilitis [K13.0] 12/24/2015 03/28/2018 Well adult exam [Z00.00] 12/24/2015 03/28/2018 Thyroiditis [E06.9] 03/24/2016 03/28/2018 Mold exposure [Z77.120] 08/03/2016 03/28/2018 Disorder of thyroid, antepartum [O99.280, E07.9]03/14/2018 03/28/2018 Obesity in [O99.210] 03/14/2018 03/28/2018 Excessive weight gain during , antepar*03/14/2018 03/28/2018 Family history of congenital heart defect [Z82.*03/14/2018 Patient request for diagnostic testing [Z01.89] 03/14/2018 05/30/2019 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] 04/05/2018 01/23/2019 Routine physical examination [Z00.00] 08/07/2018 01/23/2019 Hypothyroidism, acquired [E03.9] 08/07/2018 History of loss in prior , c*12/19/2018 01/23/2019 Nausea and vomiting in [O21.9] 12/19/2018 05/30/2019 Excessive weight gain during , deliver*12/19/2018 Obesity in , antepartum [O99.210] 12/19/2018 Dichorionic diamniotic twin in first *01/23/2019 Positive GBS test [B95.1] 06/30/2019 Class 2 obesity with body mass index (BMI) of 3*07/21/2023 Wellness examination [Z00.00] 07/21/2023 Acquired hypothyroidism [E03.9] 07/21/2023 Encounter Status:Closed by JULIANA HUSTON on 05/05/24 Normal [facility] Telephone (FAMPWS) NENA LEIVA ([id number]) 1990 F Date Time Provider Department 05/05/24 [facility] During your visit today, we recorded the following information about you: Carmen Velazquez LPN 05/05/2024 9:27 AM Signed Patient just found out she is . About 5 weeks along. When should she check TSH? She did stop the tirzepatide as soon as she found out she was . Miguelito Champion DO 05/05/2024 4:56 PM Signed Order placed for thyroid labs Please let her know congratulations!!! DO Natasha Skelton Susan LPN 05/05/2024 5:08 PM Signed Pt. informed via My Chart. Allergies As of Date: 05/05/2024 Noted Allergy Reaction BEES 07/07/2008 7 - Swelling LATEX 07/07/2008 4 - Hives Date Reviewed: 07/20/2023 Reviewed by: Alyson Meza LPN - Fully Assessed Reason for Visit: Question [1327] Primary Visit Diagnosis:Hypothyroidi sm, acquired [E03.9] Order(s):THYROID STIMULATING HORMONE [SQTSH] Order #: [id number] FUTURE T4 FREE/FREE THYROXINE [SQFT4] Order #: [id number] FUTURE Prescriptions as of 05/05/2024 - tirzepatide (MOUNJARO) 10 mg/0.5 mL pen injector Inject 10 mg subcutaneously one time a week. - LABORER ORCHARD THYROID 60 mg tablet TAKE 2 TABLETS BY MOUTH EVERY DAY - mebendazole (VERMOX) 100 mg chewable tablet Take 1 tablet PO once. Repeat dose in 2 weeks - multivit with calcium,iron,min (WOMEN'S DAILY MULTIVITAMIN ORAL) Take by mouth once daily. - Magnesium Oxide 500 mg magnesium tab Take 500 mg by mouth once daily. - L.acid,para-B.bifidum- S.therm (QUAD-PROBIOTIC) 8 billion cell cap Take by mouth once daily. - cetirizine (ZYRTEC) 10 mg tablet - Cholecalciferol, Vitamin D3, 50 mcg (2,000 unit) cap Take by mouth once daily. - EPINEPHrine (EPIPEN) 0.3 mg/0.3 mL (1:1,000) PnIj Use as needed following a bee sting Problem List As Of Date 05/05/2024 Noted Resolved Hypothyroidism complicating [O99.280,*10/14/2013 Normal , first [Z34.00] 11/06/2013 08/10/2014 Rh negative state in antepartum period [O26.899*11/07/2013 Acquired hypothyroidism [E03.9] 01/21/2015 01/23/2019 Malaise and fatigue [R53.81, R53.83] 07/23/2015 03/28/2018 Multinodular goiter [E04.2] 08/26/2015 Impaired fasting glucose [R73.01] 10/27/2015 11/01/2015 Angular cheilitis [K13.0] 12/24/2015 03/28/2018 Well adult exam [Z00.00] 12/24/2015 03/28/2018 Thyroiditis [E06.9] 03/24/2016 03/28/2018 Mold exposure [Z77.120] 08/03/2016 03/28/2018 Disorder of thyroid, antepartum [O99.280, E07.9]03/14/2018 03/28/2018 Obesity in [O99.210] 03/14/2018 03/28/2018 Excessive weight gain during , antepar*03/14/2018 03/28/2018 Family history of congenital heart defect [Z82.*03/14/2018 Patient request for diagnostic testing [Z01.89] 03/14/2018 05/30/2019 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] 04/05/2018 01/23/2019 Routine physical examination [Z00.00] 08/07/2018 01/23/2019 Hypothyroidism, acquired [E03.9] 08/07/2018 History of loss in prior , c*12/19/2018 01/23/2019 Nausea and vomiting in [O21.9] 12/19/2018 05/30/2019 Excessive weight gain during , deliver*12/19/2018 Obesity in , antepartum [O99.210] 12/19/2018 Dichorionic diamniotic twin in first *01/23/2019 Positive GBS test [B95.1] 06/30/2019 Class 2 obesity with body mass index (BMI) of 3*07/21/2023 Wellness examination [Z00.00] 07/21/2023 Acquired hypothyroidism [E03.9] 07/21/2023 Encounter Status:Closed by LISA LEÓN LPN on 05/05/24 Normal [facility] T3 SerPl-mCncon 04-04-2024 T3 [Mass/Vol] 72 ng/dL Low 79-165 [facility] Comment on above: Order Comment: Speci men Type: BLOOD SPECIMENOrdering Facility: [facility] Address: [address] [place] [address] Performed By: #### 3 024-7, 3053-6, 3016-3 ####[facility] [id number] [place] [address] [place] T4 Free SerPl-mCncon 025 Free T4 [Mass/Vol] 0.9 ng/dL Normal 0.9-1.7 [facility] Comment on above: Order Comment: Speci men Type: BLOOD SPECIMENOrdering Facility: [facility] Address: [address] [place] [address] Performed By: #### 3 024-7, 3053-6, 3016-3 ####[facility] [id number] [place] [address] [place] TSH SerPl-aCncon 04-04-2024 TSH Qn 2.590 m[IU]/L Normal 0.270-4.200 [facility] Comment on above: Order Comment: Speci men Type: BLOOD SPECIMENOrdering Facility: [facility] Address: [address], [place] [address] Result Comment: If t he patient is , TSH reference range varies by gestational period: First Trimester (weeks 9-12): 0.180-2.990 mIU/L Second Trimester: 0.110-3.980 mIU/L Third Trimester: 0.480-4.710 mIU/L Homer Caputo et al. A Practical Approach for the Verifications and Determination of Site- and Trimester-Specific Reference Intervals for Thyroid Function tests in . Thyroid, 2019:29:3:412-420. Moose Lopez, et al. 2017 Guidelines of the [place] Thyroid Association for the Diagnosis and Management of Thyroid Disease during and the . Thyroid, 2017:27:3:315-389. Performed By: #### 3 024-7, 3053-6, 3016-3 ####[facility]IA [id number] [facility] [id number] [place] [address] [facility] CNPRaysa 03-11-2024 [facility] NENA LEIVA ([id number]) 1990 F Date Time Provider Department 03/11/24 [facility] During your visit today, we recorded the following information about you: Zeinab Berman OCCA 03/11/2024 9:44 AM Signed Please see message from patients My Chart below. Hi Dr Champion, I just saw that the FDA was changing the availability of tirzepatide to be compounded starting in April. I?m assuming that will affect my current prescription and I was wondering what we could do going forward? I really don?t want to go off of it but I?m not sure if my insurance would even cover Zepbound for me. As of this morning I am down to 206.6 and on 04/04/23, the first day I started on the compounded dose I was 249.4. As you know I didn?t change anything to my normal routine other than adding this in since I was already lifting 4-5 days a week, walking 8-10k steps daily, tracking macros and prioritizing sleep(and I continue to do them all as well). I feel the best I?ve felt post children. Stronger, confident, happy. The thought of going off and regressing actually makes me sick. Any insight would be helpful. 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 Thank you for all you do! Ali"Miguelito Champion DO 03/18/2024 4:50 PM Signed I am not aware of any of this information with the compounding pharmacy Recommend that she calls and asks the pharmacy specifically any questions DO Natasha Skelton Susan LPN 03/19/2024 8:58 AM Signed Pt. informed via My Chart Allergies As of Date: 03/11/2024 Noted Allergy Reaction BEES 07/07/2008 7 - Swelling LATEX 07/07/2008 4 - Hives Date Reviewed: 07/20/2023 Reviewed by: Alyson Meza LPN - Fully Assessed Reason for Visit: Patient Question [4961] Prescriptions as of 03/19/2024 - tirzepatide (MOUNJARO) 10 mg/0.5 mL pen injector Inject 10 mg subcutaneously one time a week. - mebendazole (VERMOX) 100 mg chewable tablet Take 1 tablet PO once. Repeat dose in 2 weeks - multivit with calcium,iron,min (WOMEN'S DAILY MULTIVITAMIN ORAL) Take by mouth once daily. - Magnesium Oxide 500 mg magnesium tab Take 500 mg by mouth once daily. - L.acid,para-B.bifidum- S.therm (QUAD-PROBIOTIC) 8 billion cell cap Take by mouth once daily. - cetirizine (ZYRTEC) 10 mg tablet - LABORER ORCHARD THYROID 60 mg tablet TAKE 2 TABLETS BY MOUTH EVERY DAY - Cholecalciferol, Vitamin D3, 50 mcg (2,000 unit) cap Take by mouth once daily. - EPINEPHrine (EPIPEN) 0.3 mg/0.3 mL (1:1,000) PnIj Use as needed following a bee sting Problem List As Of Date 03/11/2024 Noted Resolved Hypothyroidism complicating [O99.280,*10/14/2013 Normal , first [Z34.00] 11/06/2013 08/10/2014 Rh negative state in antepartum period [O26.899*11/07/2013 Acquired hypothyroidism [E03.9] 01/21/2015 01/23/2019 Malaise and fatigue [R53.81, R53.83] 07/23/2015 03/28/2018 Multinodular goiter [E04.2] 08/26/2015 Impaired fasting glucose [R73.01] 10/27/2015 11/01/2015 Angular cheilitis [K13.0] 12/24/2015 03/28/2018 Well adult exam [Z00.00] 12/24/2015 03/28/2018 Thyroiditis [E06.9] 03/24/2016 03/28/2018 Mold exposure [Z77.120] 08/03/2016 03/28/2018 Disorder of thyroid, antepartum [O99.280, E07.9]03/14/2018 03/28/2018 Obesity in [O99.210] 03/14/2018 03/28/2018 Excessive weight gain during , antepar*03/14/2018 03/28/2018 Family history of congenital heart defect [Z82.*03/14/2018 Patient request for diagnostic testing [Z01.89] 03/14/2018 05/30/2019 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] 04/05/2018 01/23/2019 Routine physical examination [Z00.00] 08/07/2018 01/23/2019 Hypothyroidism, acquired [E03.9] 08/07/2018 History of loss in prior , c*12/19/2018 01/23/2019 Nausea and vomiting in [O21.9] 12/19/2018 05/30/2019 Excessive weight gain during , deliver*12/19/2018 Obesity in , antepartum [O99.210] 12/19/2018 Dichorionic diamniotic twin in first *01/23/2019 Positive GBS test [B95.1] 06/30/2019 Class 2 obesity with body mass index (BMI) of 3*07/21/2023 Wellness examination [Z00.00] 07/21/2023 Acquired hypothyroidism [E03.9] 07/21/2023 Encounter Status:Closed by LISA LEÓN LPN on 03/19/24 [facility] 02-14-2024 JAMAR Telephone (FAMPWS) NENA LEIVA ([id number]) 1990 F Date Time Provider Department 02/14/24 [facility] During your visit today, we recorded the following information about you: Karen Azar APRN.CLINICAL THERAPIST 02/14/2024 3:25 PM Signed Please call patient and let her know that thyroid labs are greatly improved from 2 months ago. T3 and T4 are normal, however TSH is still slightly elevated. No change in regimen unless pt is symptomatic. Please see how she is feeling. Thank you, Karen Azar APRN.CLINICAL THERAPIST Crystal Giraldo MA 02/14/2024 3:53 PM Signed Pt informed via message MORGAN Otero Jazz[place], MA 02/14/2024 4:23 PM Signed Please see pt message - I would say overall I feel better than a few months ago but I have noticed hair loss, feeling some fatigue and a lower sex drive than what I would consider normal for me. I wouldn?t be opposed to slightly changing things around to see if that improves? Thanks! Karen San APRN.[facility] 02/15/2024 10:27 AM Signed Go ahead and increase to 2.5 tablets 1-2 days per week. And let me know in 4-6 weeks how you are feeling. We can repeat labs then. Thank you, Karen Azar APRN.Piper Johnson LPN 02/15/2024 10:45 AM Signed Left message to return call. Glo Smith MA 02/18/2024 10:57 AM Signed Pt notified of results via Appolicioust. Glo Smith Ma Allergies As of Date: 02/14/2024 Noted Allergy Reaction BEES 07/07/2008 7 - Swelling LATEX 07/07/2008 4 - Hives Date Reviewed: 07/20/2023 Reviewed by: Alyson Meza LPN - Fully Assessed Reason for Visit: Results [95] Primary Visit Diagnosis:Acquired hypothyroidism [E03.9] Order(s):THYROID STIMULATING HORMONE [SQTSH] Order #: [id number] FUTURE T3 [SQT3] Order #: [id number] FUTURE T4 FREE/FREE THYROXINE [SQFT4] Order #: [id number] FUTURE Prescriptions as of 02/18/2024 - tirzepatide (MOUNJARO) 10 mg/0.5 mL pen injector Inject 10 mg subcutaneously one time a week. - mebendazole (VERMOX) 100 mg chewable tablet Take 1 tablet PO once. Repeat dose in 2 weeks - multivit with calcium,iron,min (WOMEN'S DAILY MULTIVITAMIN ORAL) Take by mouth once daily. - Magnesium Oxide 500 mg magnesium tab Take 500 mg by mouth once daily. - L.acid,para-B.bifidum- S.therm (QUAD-PROBIOTIC) 8 billion cell cap Take by mouth once daily. - cetirizine (ZYRTEC) 10 mg tablet - LABORER ORCHARD THYROID 60 mg tablet TAKE 2 TABLETS BY MOUTH EVERY DAY - Cholecalciferol, Vitamin D3, 50 mcg (2,000 unit) cap Take by mouth once daily. - EPINEPHrine (EPIPEN) 0.3 mg/0.3 mL (1:1,000) PnIj Use as needed following a bee sting Problem List As Of Date 02/14/2024 Noted Resolved Hypothyroidism complicating [O99.280,*10/14/2013 Normal , first [Z34.00] 11/06/2013 08/10/2014 Rh negative state in antepartum period [O26.899*11/07/2013 Acquired hypothyroidism [E03.9] 01/21/2015 01/23/2019 Malaise and fatigue [R53.81, R53.83] 07/23/2015 03/28/2018 Multinodular goiter [E04.2] 08/26/2015 Impaired fasting glucose [R73.01] 10/27/2015 11/01/2015 Angular cheilitis [K13.0] 12/24/2015 03/28/2018 Well adult exam [Z00.00] 12/24/2015 03/28/2018 Thyroiditis [E06.9] 03/24/2016 03/28/2018 Mold exposure [Z77.120] 08/03/2016 03/28/2018 Disorder of thyroid, antepartum [O99.280, E07.9]03/14/2018 03/28/2018 Obesity in [O99.210] 03/14/2018 03/28/2018 Excessive weight gain during , antepar*03/14/2018 03/28/2018 Family history of congenital heart defect [Z82.*03/14/2018 Patient request for diagnostic testing [Z01.89] 03/14/2018 05/30/2019 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] 04/05/2018 01/23/2019 Routine physical examination [Z00.00] 08/07/2018 01/23/2019 Hypothyroidism, acquired [E03.9] 08/07/2018 History of loss in prior , c*12/19/2018 01/23/2019 Nausea and vomiting in [O21.9] 12/19/2018 05/30/2019 Excessive weight gain during , deliver*12/19/2018 Obesity in , antepartum [O99.210] 12/19/2018 Dichorionic diamniotic twin in first *01/23/2019 Positive GBS test [B95.1] 06/30/2019 Class 2 obesity with body mass index (BMI) of 3*07/21/2023 Wellness examination [Z00.00] 07/21/2023 Acquired hypothyroidism [E03.9] 07/21/2023 Encounter Status:Closed by GLO SMITH on 02/18/24 Normal [facility] T3 [facility] 12-23-2024 T3 [Mass/Vol] 87 ng/dL Normal 79-165 [facility] Comment on above: Order Comment: Speci jillian Type: BLOOD SPECIMENOrdering Facility: [facility] Address: [address] [place] [address] Performed By: #### 3 053-6, 3024-7, 3016-3 ####[facility] [id number] [place] [address] [place] T4 Free SerPl-mCncon 024 Free T4 [Mass/Vol] 1.0 ng/dL Normal 0.9-1.7 [facility] Comment on above: Order Comment: Luis Antonioi jillian Type: BLOOD SPECIMENOrdering Facility: [facility] Address: [address] [place] [address] Performed By: #### 3 053-6, 3024-7, 6-3 ####[facility] [id number] [place] [address] [place] TSH SerPl-aCncon 02-04-2024 TSH Qn 4.880 m[IU]/L High 0.270-4.200 [facility] Comment on above: Order Comment: Selam walsh Type: BLOOD SPECIMENOrdering Facility: [facility] Address: [address] [place] [address] Result Comment: If t he patient is , TSH reference range varies by gestational period: First Trimester (weeks 9-12): 0.180-2.990 mIU/L Second Trimester: 0.110-3.980 mIU/L Third Trimester: 0.480-4.710 mIU/L Homer Caputo et al. A Practical Approach for the Verifications and Determination of Site- and Trimester-Specific Reference Intervals for Thyroid Function tests in . Thyroid, 2019:29:3:412-420. Moose Lopez et al. 2017 Guidelines of the [place] Thyroid Association for the Diagnosis and Management of Thyroid Disease during and the . Thyroid, 2017:27:3:315-389. Performed By: #### 3 053-6, 3024-7, 3016-3 ####[facility] LABCLIA [id number] [place] [address] [place] CBC W Auto Differential pane l (Bld)on 07-20-2023 Basophils (Bld) [#/Vol] 0.09 10*3/uL [facility] Basophils/100 WBC (Bld) 0.8 % [facility] Differential cell count method Nom (Bld) Auto [facility] Eosinophils (Bld) [#/Vol] 0.41 10*3/uL [facility] Eosinophils/100 WBC (Bld) 3.5 % [facility] Erythrocyte distribution width (RBC) [Ratio] 13.1 % 11.5 - 15.0 % [facility] Hematocrit (Bld) [Volume fraction] 46.6 % High 36.0 - 46.0 % [facility] Hemoglobin (Bld) [Mass/Vol] 15.0 g/dL 11.5 - 15.5 g/dL [facility] Immature granulocytes (Bld) [#/Vol] 0.03 10*3/uL [facility] Immature granulocytes/100 WBC (Bld) 0.3 % [facility] Interpretation and review of laboratory results Abnormal [facility] Lymphocytes (Bld) [#/Vol] 3.24 10*3/uL [facility] Lymphocytes/100 WBC (Bld) 27.4 % [facility] MCH (RBC) [Entitic mass] 26.5 pg 26.0 - 34.0 pg [facility] MCHC (RBC) [Mass/Vol] 32.2 g/dL 30.5 - 36.0 g/dL [facility] MCV (RBC) [Entitic vol] 82.5 fL 80.0 - 100.0 fL [facility] Monocytes (Bld) [#/Vol] 0.73 10*3/uL [facility] Monocytes/100 WBC (Bld) 6.2 % [facility] Neutrophils (Bld) [#/Vol] 7.33 10*3/uL [facility] Neutrophils/100 WBC (Bld) 61.8 % [facility] Nucleated RBC (Bld) [#/Vol] [facility] Nucleated RBC/100 WBC (Bld) [Ratio] 0.0 % /100 WBC [facility] Platelet mean volume (Bld) [Entitic vol] 10.0 fL 9.0 - 12.7 fL [facility] Platelets (Bld) [#/Vol] 329 10*3/uL [facility] RBC (Bld) [#/Vol] 5.65 10*6/uL High 3.90 - 5.2 0 m/uL [facility] WBC (Bld) [#/Vol] 11.83 10*3/uL High [facility] Comprehensive metabolic 2000 panelon 07-20-2023 Albumin [Mass/Vol] 4.8 g/dL 3.9 - 4.9 g/dL Cl [facility] ALP [Catalytic activity/Vol] 82 U/L 34 - 123 U/L [facility] ALT [Catalytic activity/Vol] 13 U/L 7 - 38 U/L [facility] Anion gap [Moles/Vol] 15 mmol/L 8 - 15 mmol/L [facility] AST [Catalytic activity/Vol] 17 U/L 13 - 35 U/L [facility] Bilirubin [Mass/Vol] 0.6 mg/dL 0.2 - 1.3 mg/dL [facility] Calcium [Mass/Vol] 9.8 mg/dL 8.5 - 10. 2 mg/dL [facility] Chloride [Moles/Vol] 101 mmol/L 98 - 107 mmol/L [facility] CO2 [Moles/Vol] 22 mmol/L 22 - 30 mmol/L [facility] Creatinine [Mass/Vol] 0.94 mg/dL 0.58 - 0.96 mg/dL [facility] GFR/1.73 sq M.predicted among non-blacks MDRD (S/P/Bld) [Vol rate/Area] 82 mL/min/{1.73_m2} - PINF [facility] Comment on above: Estimated Glomerular Filtration Rate (eGFR) is calculated using the 2020 CKD-EPI creatinine equation. This equation utilizes serum creatinine, sex, and age as parameters. The creatinine assay has traceable calibration to isotope dilution-mass spectrometry. Refer to KDIGO guidelines for clinical interpretation. In patients with unstable renal function, e.g. those with acute kidney injury, the eGFR may not accurately reflect actual GFR. Glucose [Mass/Vol] 92 mg/dL 74 - 99 mg/dL [facility] Comment on above: The [place] Diabete [place] Association (ADA) provides guidance for cutoff values for fasting glucose and random glucose. The ADA defines fasting as no caloric intake for at least 8 hours. Fasting plasma glucose results between 100 to 125 mg/dL indicate increased risk for diabetes (prediabetes). Fasting plasma glucose results greater than or equal to 126 mg/dL meet the criteria for diagnosis of diabetes. In the absence of unequivocal hyperglycemia, results should be confirmed by repeat testing. In a patient with classic symptoms of hyperglycemia or hyperglycemic crisis, random plasma glucose results greater than or equal to 200 mg/dL meet the criteria for diagnosis of diabetes. Reference: Standards of Medical Care in Diabetes 2016, [place] Diabetes Association. Diabetes Care. 2016.39(Suppl 1). Interpretation and review of laboratory results Normal [facility] Potassium [Moles/Vol] 4.7 mmol/L 3.7 - 5.1 mmol/L [facility] Protein [Mass/Vol] 7.6 g/dL 6.3 - 8.0 g/dL Cl [facility] Sodium [Moles/Vol] 138 mmol/L 136 - 144 mmol/L [facility] Urea nitrogen [Mass/Vol] 14 mg/dL 7 - 21 mg/dL [facility] Free T3 [Mass/Vol]on Interpretation and review of laboratory results Abnormal [facility] Free T4 [Mass/Vol]on Interpretation and review of laboratory results Normal [facility] HbA1c (Bld)on 07-20-2023 Average glucose Estimated from glycated hemoglobin (Bld) [Mass/Vol] 94 mg/dL [facility] Comment on above: eAG: (Estimated aver age glucose) is a calculated value from HgbA1c and is licensing representative of the average blood glucose level in the last 2-3 month period. HbA1c (Bld) [Mass fraction] 4.9 % 4.3 - 5.6 % [facility] Comment on above: [place] Diabetes As sociation guidelines indicate that patients with HgbA1c in the range 5.7-6.4% are at increased risk for development of diabetes, and intervention by lifestyle modification may be beneficial. HgbA1c greater or equal to 6.5% is considered diagnostic of diabetes. [facility] Lipid 1996 panelon Cholesterol [Mass/Vol] 182 mg/dL NINF - 200 mg/dL [facility] Comment on above: <200 mg/dL, Desirabl e 200-239 mg/dL, Borderline high >239 mg/dL, High Cholesterol in HDL [Mass/Vol] 53 mg/dL 39 - PINF mg/dL [facility] Comment on above: 40-59 mg/dL, Accepta ble >59 mg/dL, High: Negative risk factor for coronary heart disease <40 mg/dL, Low: Positive risk factor for coronary heart disease Cholesterol in LDL [Mass/Vol] 117 mg/dL High NINF - 100 mg/dL [facility] Comment on above: <100 mg/dL, Optimal 100-129 mg/dL, Near optimal/above optimal 130-159 mg/dL, Borderline high 160-189 mg/dL, High >189 mg/dL, Very high Secondary prevention optimal LDL Cholesterol levels are recommended to be < 70 mg/dL Cholesterol in LDL/Cholesterol in HDL [Mass ratio] 2.21 {ratio} NINF - 2.54 [facility] Comment on above: Reference: 1. National Cholesterol Education Program ATP III Guideline At-A-Glance Quick Desk Reference: National Heart, Lung, and Blood [place]. National Institutes of Health. 2001: NIH Publication No. 01-3305. 2. An International Atherosclerosis Society position paper: global recommendations for the management of dyslipidemia: executive summary, Atherosclerosis. 2014: 232(2):410-413. Cholesterol in VLDL [Mass/Vol] 12 mg/dL NINF - 30 mg/dL [facility] Cholesterol non HDL [Mass/Vol] 129 mg/dL NINF - 130 mg/dL [facility] Comment on above: <130 mg/dL, Optimal 130-159 mg/dL, Near optimal/above optimal 160-189 mg/dL, Borderline high 190-219 mg/dL, High >219 mg/dL, Very high Secondary prevention optimal non HDL Cholesterol levels are recommended to be <100 mg/dL Cholesterol.total/Ch olesterol in HDL [Mass ratio] 3.43 {ratio} NINF - 5.10 [facility] Fasting Time 16 hrs [facility] Interpretation and review of laboratory results Abnormal [facility] Triglyceride [Mass/Vol] 61 mg/dL NINF - 150 mg/dL [facility] Comment on above: <150 mg/dL, Normal 150-199 mg/dL, Borderline high 200-499 mg/dL, High >499 mg/dL, Very high No Panel Informationon 07-19 [facility] T3, FREEon 07-20-2023 Free T3 [Mass/Vol] 6.2 pg/mL High 2.3 - 4.1 pg/mL [facility] T4 FREE/FREE THYROXINEon Free T4 [Mass/Vol] 1.1 ng/dL 0.9 - 1.7 ng/dL [facility] THYROID STIMULATING HORMONEo n 07-20-2023 TSH Qn 4.760 m[IU]/L High [facility] Comment on above: If the patient is pr egnant, TSH reference range varies by gestational period: First Trimester (weeks 9-12): 0.180-2.990 mIU/L Second Trimester: 0.110-3.980 mIU/L Third Trimester: 0.480-4.710 mIU/L Homer Caputo et al. A Practical Approach for the Verifications and Determination of Site- and Trimester-Specific Reference Intervals for Thyroid Function tests in . Thyroid, 2019:29:3:412-420. Moose Lopez, et al. 2017 Guidelines of the [place] Thyroid Association for the Diagnosis and Management of Thyroid Disease during and the . Thyroid, 2017:27:3:315-389. TSH Qnon 07-20-2023 Interpretation and review of laboratory results Abnormal [facility] CBC W Auto Differential pane l (Bld)on 09-22-2022 Basophils (Bld) [#/Vol] 0.05 10*3/uL <0.11 k/uL [facility] Basophils/100 WBC (Bld) 0.6 % [facility] Differential cell count method Nom (Bld) Auto [facility] Eosinophils (Bld) [#/Vol] 0.26 10*3/uL <0.46 k/uL [facility] Eosinophils/100 WBC (Bld) 3.1 % [facility] Erythrocyte distribution width (RBC) [Ratio] 12.8 % 11.5 - 15.0 % [facility] Hematocrit (Bld) [Volume fraction] 43.2 % 36.0 - 46.0 % [facility] Hemoglobin (Bld) [Mass/Vol] 14.1 g/dL 11.5 - 15.5 g/dL [facility] Immature granulocytes (Bld) [#/Vol] <0.10 k/uL [facility] Immature granulocytes/100 WBC (Bld) 0.2 % [facility] Lymphocytes (Bld) [#/Vol] 2.62 10*3/uL 1.00 - 4.00 k/uL [facility] Lymphocytes/100 WBC (Bld) 31.3 % [facility] MCH (RBC) [Entitic mass] 28.0 pg 26.0 - 34.0 pg [facility] MCHC (RBC) [Mass/Vol] 32.6 g/dL 30.5 - 36.0 g/dL [facility] MCV (RBC) [Entitic vol] 85.7 fL 80.0 - 100.0 fL [facility] Monocytes (Bld) [#/Vol] 0.62 10*3/uL <0.87 k/uL [facility] Monocytes/100 WBC (Bld) 7.4 % [facility] Neutrophils (Bld) [#/Vol] 4.80 10*3/uL 1.45 - 7.50 k/uL [facility] Neutrophils/100 WBC (Bld) 57.4 % [facility] Nucleated RBC (Bld) [#/Vol] <0.01 k/uL [facility] Nucleated RBC/100 WBC (Bld) [Ratio] 0.0 /100 WBC [facility] Platelet mean volume (Bld) [Entitic vol] 10.4 fL 9.0 - 12.7 fL [facility] Platelets (Bld) [#/Vol] 278 10*3/uL 150 - 400 k/uL [facility] RBC (Bld) [#/Vol] 5.04 10*6/uL 3.90 - 5.2 0 m/uL [facility] WBC (Bld) [#/Vol] 8.37 10*3/uL 3.70 - 11. 00 k/uL [facility] Comprehensive metabolic 2000 panelon 09-22-2022 Albumin [Mass/Vol] 4.4 g/dL 3.9 - 4.9 g/dL [facility] ALP [Catalytic activity/Vol] 68 U/L 34 - 123 U/L [facility] ALT [Catalytic activity/Vol] 16 U/L 7 - 38 U/L [facility] Anion gap [Moles/Vol] 10 mmol/L 9 - 18 mmol/L [facility] AST [Catalytic activity/Vol] 22 U/L 13 - 35 U/L [facility] Bilirubin [Mass/Vol] 0.4 mg/dL 0.2 - 1.3 mg/dL [facility] Calcium [Mass/Vol] 9.5 mg/dL 8.5 - 10. 2 mg/dL [facility] Chloride [Moles/Vol] 104 mmol/L 97 - 105 mmol/L [facility] CO2 [Moles/Vol] 25 mmol/L 22 - 30 mmol/L [facility] Creatinine [Mass/Vol] 0.81 mg/dL 0.58 - 0.96 mg/dL [facility] Estimated Glomerular Filtration Rate 98 mL/min/1.73m >=60 mL/min/1.73m [facility] Glucose [Mass/Vol] 101 mg/dL High 74 - 99 mg/dL [facility] Potassium [Moles/Vol] 4.1 mmol/L 3.7 - 5.1 mmol/L [facility] Protein [Mass/Vol] 6.9 g/dL 6.3 - 8.0 g/dL [facility] Sodium [Moles/Vol] 139 mmol/L 136 - 144 mmol/L [facility] Urea nitrogen [Mass/Vol] 14 mg/dL 7 - 21 mg/dL [facility] HbA1c (Bld)on 09-22-2022 Average glucose Estimated from glycated hemoglobin (Bld) [Mass/Vol] 97 mg/dL [facility] HbA1c (Bld) [Mass fraction] 5.0 % 4.3 - 5.6 % [facility] Lipid 1996 panelon 3 Cholesterol [Mass/Vol] 174 mg/dL <200 mg/dL [facility] Cholesterol in HDL [Mass/Vol] 55 mg/dL >39 mg/dL [facility] Cholesterol in LDL [Mass/Vol] 97 mg/dL <100 mg/dL [facility] Cholesterol in LDL/Cholesterol in HDL [Mass ratio] 1.76 {ratio} <2.54 [facility] Cholesterol in VLDL [Mass/Vol] 22 mg/dL <30 mg/dL [facility] Cholesterol non HDL [Mass/Vol] 119 mg/dL <130 mg/dL [facility] Cholesterol.total/Ch olesterol in HDL [Mass ratio] 3.16 {ratio} <5.10 [facility] Fasting Time 14 hrs [facility] Triglyceride [Mass/Vol] 108 mg/dL <150 mg/dL [facility] XR Foot - left AP and Latera l and obliqueon 04-06-2020 IMPRESSION: No acute osseous abnormality identified. Spin Instructor: JOSE Transcribe Date/Time: Apr 06 2020 9:59A Dictated by : NANDO SWIFT MD This examination was interpreted and the report reviewed and electronically signed by: NANDO SWIFT MD on Apr 06 2020 10:04AM EST DIVISION OF RADIOLOGY * * *Final Report* * * DATE OF EXAM: Apr 06 2020 9:57AM [id number] - XR FOOT 3V AP/LAT/OBL LT / PROCEDURE REASON: Foot injury, left, initial encounter * * * * Physician Interpretation * * * * Left foot radiographs HISTORY: 30 years old Clinical information: Foot injury, left, initial encounter Left dorsal forefoot pain and pain through the 3-5 digits after a jamming injury last night. TECHNIQUE: Images: XR FOOT 3V AP/LAT/OBL LT Comparison: None. RESULT: Findings: No fracture or dislocation is evident. No soft tissue abnormality identified. DIVISION OF RADIOLOGY Provider, [facility] - 04/06/2020 * * *Final Report* * * DATE OF EXAM: Apr 06 2020 9:57AM WOX [id number] - XR FOOT 3V AP/LAT/OBL LT / PROCEDURE REASON: Foot injury, left, initial encounter * * * * Physician Interpretation * * * * Left foot radiographs HISTORY: 30 years old Clinical information: Foot injury, left, initial encounter Left dorsal forefoot pain and pain through the 3-5 digits after a jamming injury last night. TECHNIQUE: Images: XR FOOT 3V AP/LAT/OBL LT Comparison: None. RESULT: Findings: No fracture or dislocation is evident. No soft tissue abnormality identified. IMPRESSION IMPRESSION: No acute osseous abnormality identified. Spin Instructor: JOSE Transcribe Date/Time: Apr 06 2020 9:59A Dictated by : NANDO SWIFT MD This examination was interpreted and the report reviewed and electronically signed by: NANDO SWIFT MD on Apr 06 2020 10:04AM EST [facility] Radiology Study observation (narrative) [facility] XR Foot - left AP and Latera l and obliqueOrdered By: [facility] Provider on 04-06-2020 [facility] Vital Signs Date Time Vital Sign Value Performing Clinician Facility 10-29-2024 10:58-0400 Body mass index (BMI) [Ratio] 39.18 kg/m2 Kristen Smith MD Work Phone: [facility] 10-29-2024 10:58-0400 Body weight 107.96 kg Kristen Smith MD Work Phone: [facility] 10-29-2024 10:58-0400 Diastolic blood pressure 68 mm[Hg] Kristen Smith MD Work Phone: [facility] 10-29-2024 10:58-0400 Systolic blood pressure 100 mm[Hg] Kristen Smtih MD Work Phone: [facility] 10-15-2024 14:38-0400 Body mass index (BMI) [Ratio] 39.18 kg/m2 Lauren Madera GROUTER HELPER.CLINICAL THERAPIST Work Phone: [facility] 10-15-2024 14:38-0400 Body weight 107.96 kg Lauren Madera GROUTER HELPER.CLINICAL THERAPIST Work Phone: [facility] 10-15-2024 14:38-0400 Diastolic blood pressure 80 mm[Hg] Lauren Haury GROUTER HELPER.CLINICAL THERAPIST Work Phone: [facility] 10-15-2024 14:38-0400 Systolic blood pressure 120 mm[Hg] Lauren Haury GROUTER HELPER.CLINICAL THERAPIST Work Phone: [facility] 08-23-2024 08:41-0400 Body height 166 cm Miguelito Champion DO Work Phone: [facility] 08-23-2024 08:41-0400 Body mass index (BMI) [Ratio] 37.4 kg/m2 Miguelito Champion DO Work Phone: [facility] 08-23-2024 08:41-0400 Body temperature 98.01 [degF] Miguelito Champion DO Work Phone: [facility] 08-23-2024 08:41-0400 Body weight 103.06 kg Miguelito Champion DO Work Phone: [facility] 08-23-2024 08:41-0400 Diastolic blood pressure 67 mm[Hg] Miguelito Champion DO Work Phone: [facility] Comment on above: bp machine 08-23-2024 08:41-0400 Heart rate 85 /min Miguelito Champion DO Work Phone: [facility] 08-23-2024 08:41-0400 SaO2% (BldA) [Mass fraction] 97 % Miguelito Champion DO Work Phone: [facility] 08-23-2024 08:41-0400 Systolic blood pressure 106 mm[Hg] Miguelito Orozcorison DO Work Phone: [facility] Comment on above: bp machine 08-22-2024 15:56-0400 Body mass index (BMI) [Ratio] 38.12 kg/m2 Joe Boyce MD Work Phone: [facility] 08-22-2024 15:56-0400 Body weight 103.78 kg Joe Boyce MD Work Phone: [facility] 08-22-2024 15:56-0400 Diastolic blood pressure 70 mm[Hg] Joe Boyce MD Work Phone: [facility] 08-22-2024 15:56-0400 Systolic blood pressure 116 mm[Hg] Joe Boyce MD Work Phone: [facility] 07-25-2024 11:48-0400 Diastolic blood pressure 64 mm[Hg] Denae Renteria APRN.CNM Work Phone: [facility] 07-25-2024 11:48-0400 Systolic blood pressure 112 mm[Hg] Denae Renteria APRN.CNM Work Phone: [facility] 05-23-2024 08:12-0400 Body mass index (BMI) [Ratio] 35.59 kg/m2 Shiloh Cook GROUTER HELPER.CLINICAL THERAPIST Work Phone: [facility] 05-23-2024 08:12-0400 Body weight 96.89 kg Shiloh Khoi GROUTER HELPER.CLINICAL THERAPIST Work Phone: [facility] 05-23-2024 08:12-0400 Diastolic blood pressure 62 mm[Hg] Shiloh Khoi GROUTER HELPER.CLINICAL THERAPIST Work Phone: [facility] 05-23-2024 08:12-0400 Systolic blood pressure 110 mm[Hg] Shiloh Khoi GROUTER HELPER.CLINICAL THERAPIST Work Phone: [facility] 07-20-2023 12:38-0400 Body height 165 cm Miguelito Champion DO Work Phone: [facility] 07-20-2023 12:38-0400 Body mass index (BMI) [Ratio] 37.79 kg/m2 Miguelito Champion DO Work Phone: [facility] 07-20-2023 12:38-0400 Body temperature 96.91 [degF] Miguelito Champion DO Work Phone: [facility] 07-20-2023 12:38-0400 Body weight 102.88 kg Miguelito Champion DO Work Phone: [facility] 07-20-2023 12:38-0400 Diastolic blood pressure 78 mm[Hg] Miguelito Champion DO Work Phone: [facility] 07-20-2023 12:38-0400 Heart rate 105 /min Miguelito Champion DO Work Phone: [facility] 07-20-2023 12:38-0400 Respiratory rate 16 /min Miguelito Champion DO Work Phone: [facility] 07-20-2023 12:38-0400 SaO2% (BldA) [Mass fraction] 99 % Miguelito Champion DO Work Phone: [facility] 07-20-2023 12:38-0400 Systolic blood pressure 104 mm[Hg] Miguelito Champion DO Work Phone: [facility] 09-22-2022 08:13-0400 Body height 164 cm Karen Azar GROUTER HELPER.CLINICAL THERAPIST Work Phone: [facility] 09-22-2022 08:13-0400 Body weight 111.31 kg Karen Azar GROUTER HELPER.CLINICAL THERAPIST Work Phone: [facility] 09-22-2022 08:13-0400 Diastolic blood pressure 70 mm[Hg] Karen Azar GROUTER HELPER.CLINICAL THERAPIST Work Phone: [facility] 09-22-2022 08:13-0400 Heart rate 64 /min Karen Azar GROUTER HELPER.CLINICAL THERAPIST Work Phone: [facility] 09-22-2022 08:13-0400 Respiratory rate 12 /min Karen Azar GROUTER HELPER.CLINICAL THERAPIST Work Phone: [facility] 09-22-2022 08:13-0400 Systolic blood pressure 118 mm[Hg] Karen Azar GROUTER HELPER.CLINICAL THERAPIST Work Phone: [facility] 06-13-2022 19:44-0400 Body temperature 98.01 [degF] Paula Athy PA-C Work Phone: [facility] 06-13-2022 19:44-0400 Body weight 112.49 kg Paula Athy PA-C Work Phone: [facility] 06-13-2022 19:44-0400 Diastolic blood pressure 72 mm[Hg] Paula Athy PA-C Work Phone: [facility] 06-13-2022 19:44-0400 Heart rate 90 /min Paula Athy PA-C Work Phone: [facility] 06-13-2022 19:44-0400 Respiratory rate 16 /min Paula Athy PA-C Work Phone: [facility] 06-13-2022 19:44-0400 SaO2% (BldA) [Mass fraction] 99 % Paula Athy PA-C Work Phone: [facility] 06-13-2022 19:44-0400 Systolic blood pressure 122 mm[Hg] Paula Athy PA-C Work Phone: [facility] 07-06-2021 07:39-0400 Body height 164.5 cm Miguelito Champion DO Work Phone: [facility] 07-06-2021 07:39-0400 Body temperature 97.5 [degF] Miguelito Champion DO Work Phone: [facility] 07-06-2021 07:39-0400 Body weight 103.87 kg Miguelito Champion DO Work Phone: [facility] 07-06-2021 07:39-0400 Diastolic blood pressure 70 mm[Hg] Miguelito Champion DO Work Phone: [facility] 07-06-2021 07:39-0400 Heart rate 80 /min Miguelito Champion DO Work Phone: [facility] 07-06-2021 07:39-0400 Respiratory rate 16 /min Miguelito Champion DO Work Phone: [facility] 07-06-2021 07:39-0400 Systolic blood pressure 120 mm[Hg] Miguelito Champion DO Work Phone: [facility] Encounters Encounter Date Encounter Type Care Provider Facility Start: 01-07-2025 ambulatory Joe Boyce Facility:[facility] Start: 12-18-2024 End: 12-18-2024 [facility] Start: 12-11-2024 End: 12-11-2024 ambulatory MIGUELITO L CHAMPION Facility:[facility] Start: 12-11-2024 End: 12-11-2024 ambulatory JOSSIE MARCH Facility:[facility] Start: 11-27-2024 End: 11-27-2024 ambulatory JOE BOYCE Facility:[facility] Start: 11-12-2024 End: 11-12-2024 ambulatory MIGUELITO L CHAMPION Facility:[facility] Start: 11-12-2024 End: 11-12-2024 ambulatory FREYA VELAZQUEZ Facility:[facility] Start: 10-29-2024 End: 10-29-2024 Telephone encounter Lianna Moreno MD Work Phone: OB/Gynecology Comment on above: Breast Pump RX Start: 10-29-2024 End: 10-29-2024 Patient encounter procedure Kristen Smith MD Work Phone: OB/Gynecology Comment on above: 30 weeks gestation o f (HCC) (Primary Dx); Supervision of high risk in second trimester (HCC); Twin with single intrauterine , first trimester, fetus 1 (HCC); AMA (advanced maternal age) multigravida 35+, second trimester (HCC); Obesity affecting in second trimester, unspecified obesity type (HCC) Start: 10-29-2024 End: 10-29-2024 ambulatory MIGUELITO CHAMPION Facility:[facility] Start: 10-24-2024 End: 10-27-2024 ambulatory Miguelito Champion DO Work Phone: [facility] Comment on above: Thyroid labs Results Start: 10-24-2024 End: 10-27-2024 E-mail encounter from caregiver [facility] Provider [facility] Start: 10-24-2024 End: 10-24-2024 Telephone encounter Miguelito Champion DO Work Phone: [facility] Start: 10-15-2024 End: 10-15-2024 Patient encounter procedure Lauren Madera APRN.CLINICAL THERAPIST Work Phone: OB/Gynecology Comment on above: Supervision of high risk in second trimester (HCC) (Primary Dx); 28 weeks gestation of (HCC); Twin with single intrauterine , first trimester, fetus 1 (HCC); AMA (advanced maternal age) multigravida 35+, second trimester (HCC); Obesity affecting in second trimester, unspecified obesity type (HCC); Hypothyroidism affecting in second trimester (HCC); Rh negative state in antepartum period (HCC); High-risk , multigravida of advanced maternal age, antepartum (HCC) High-risk , multigravida of advanced maternal age, antepartum (HCC); 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 (HCC); Class 2 obesity without serious comorbidity with body mass index (BMI) of 37.0 to 37.9 in adult, unspecified obesity type Start: 10-15-2024 End: 10-16-2024 ambulatory Lauren Madera APRN.CLINICAL THERAPIST Work Phone: OB/Gynecology Comment on above: Hospital Form Start: 10-11-2024 End: 10-16-2024 Refill Miguelito Champion DO Work Phone: [facility] [place] Comment on above: Refill Request Start: 09-19-2024 End: 09-19-2024 ambulatory MIGUELITO OROZCORISON Facility:[facility] Start: 09-18-2024 End: 09-18-2024 ambulatory MIGUELITO Caputo CHAMPION Facility:[facility] Start: 08-23-2024 Encounter for genera l adult medical examination without abnormal findings MIGUELITO JUAREZON [facility] Start: 08-23-2024 End: 08-23-2024 Patient encounter procedure Migueltio Champion DO Work Phone: [facility] [place] Comment on above: Wellness examination (Primary Dx); Screening for depression; Encounter for screening examination for other mental health and behavioral disorders; Acquired hypothyroidism; 20 weeks gestation of ([facility]) Start: 08-23-2024 End: 08-23-2024 Patient encounter status Miguelito Champion DO Work Phone: [facility] Start: 08-23-2024 End: 08-23-2024 ambulatory MIGUELITO OROZCORISON Facility:[facility] Start: 08-22-2024 End: 08-22-2024 ambulatory MIGUELITO OROZCORISON Facility:[facility] Start: 08-22-2024 End: 08-22-2024 Patient encounter procedure Whi Tech 1 Top Stitcher [facility] Comment on above: Family history of co ngenital heart defect (Primary Dx); with uncertain dates in first trimester ([facility]); High-risk , multigravida of advanced maternal age, antepartum ([facility]); 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 ([facility]); Class 2 obesity without serious comorbidity with body mass index (BMI) of 37.0 to 37.9 in adult, unspecified obesity type Twin with single intrauterine , first trimester, fetus 1 (HCC) (Primary Dx); 20 weeks gestation of ([facility]); Supervision of high risk in second trimester ([facility]); AMA (advanced maternal age) multigravida 35+, second trimester (HCC); Obesity affecting in second trimester, unspecified obesity type (HCC); High-risk , multigravida of advanced maternal age, antepartum (HCC) Start: 08-22-2024 End: 08-22-2024 ambulatory SHILOH KHOI Facility:[facility] Start: 07-25-2024 End: 09-24-2024 Follow-up encounter Kristen Smith MD Work Phone: OB/Gynecology Start: 07-25-2024 End: 07-25-2024 ambulatory MIGUELITO CHAMPION Facility:[facility] Start: 07-25-2024 End: 07-25-2024 Patient encounter procedure Whi Tech 1 Top Stitcher [facility] Comment on above: screening for malformation using ultrasonics (HCC) (Primary Dx); Obesity affecting in second trimester, unspecified obesity type (HCC); Twin with single intrauterine , first trimester, fetus 1 (HCC); 16 weeks gestation of (HCC) Supervision of high risk in second trimester (HCC) (Primary Dx); 16 weeks gestation of (HCC); Twin with single intrauterine , first trimester, fetus 1 (HCC); Obesity affecting in second trimester, unspecified obesity type (HCC); AMA (advanced maternal age) multigravida 35+, second trimester (HCC); Hypothyroidism affecting in second trimester (HCC) Start: 07-15-2024 End: 09-14-2024 Follow-up encounter Miguelito Champion DO Work Phone: [facility] Start: 07-09-2024 End: 07-09-2024 ambulatory Joe Boyce MD Work Phone: OB/Gynecology Start: 07-09-2024 End: 07-09-2024 Follow-up encounter Joe Boyce MD Work Phone: OB/Gynecology Comment on above: Follow up Start: 07-04-2024 End: 07-04-2024 ambulatory MIGUELITO CHAMPION Facility:[facility] Start: 07-04-2024 End: 07-04-2024 ambulatory SHILOH KHOI Facility:[facility] Start: 07-04-2024 End: 07-08-2024 Telephone encounter Joe Boyce MD Work Phone: OB/Gynecology Comment on above: Appointment; Orders Start: 06-12-2024 End: 06-12-2024 ambulatory MIGUELITO L CHAMPION Facility:[facility] Start: 06-05-2024 End: 06-05-2024 ambulatory MIGUELITO L CHAMPION Facility:[facility] Start: 05-26-2024 End: 05-26-2024 Refill Miguelito L Champion DO Work Phone: [facility] [place] Comment on above: Refill Request Start: 05-24-2024 End: 05-26-2024 Telephone encounter Miguelito L Champion DO Work Phone: [facility] [place] Comment on above: Results (/) Start: 05-23-2024 End: 07-23-2024 Follow-up encounter Shiloh Westfall APRN.CNP Work Phone: OB/Gynecology Start: 05-23-2024 End: 05-26-2024 ambulatory Miguelito L Champion DO Work Phone: [facility] [place] Comment on above: Thyroid labs Start: 05-23-2024 End: 05-23-2024 Patient encounter procedure Shiloh Westfall APRN.CNP Work Phone: OB/Gynecology Comment on above: High-risk , multigravida of advanced maternal age, antepartum (HCC) (Primary Dx); Twin gestation in first trimester, unspecified multiple gestation type (HCC); 7 weeks gestation of (HCC); with uncertain dates in first trimester (HCC); Screen for STD (sexually transmitted disease); Screening for cervical cancer; Special screening examination for human papillomavirus (HPV) Start: 05-05-2024 End: 05-05-2024 Telephone encounter Denae Renteria APRN.CNM Work Phone: OB/Gynecology Comment on above: Question (OB Questio n) Question Start: 04-23-2024 End: 04-23-2024 Refill Miguelito L Champion DO Work Phone: [facility] [place] Comment on above: Refill Request Start: 04-07-2024 End: 04-14-2024 Follow-up encounter Karen Azar GROUTER HELPER.CLINICAL THERAPIST Work Phone: [facility] [place] Comment on above: Acquired hypothyroid ism Start: 04-04-2024 End: 04-04-2024 ambulatory KAREN AZAR Facility:[facility] Start: 03-11-2024 End: 03-19-2024 Telephone encounter Miguelito L Champion DO Work Phone: [facility] [place] Comment on above: Patient Question Start: 03-10-2024 End: 03-11-2024 ambulatory Miguelito L Champion DO Work Phone: [facility] [place] Comment on above: Med Question Start: 02-15-2024 End: 02-15-2024 ambulatory Miguelito L Champion DO Work Phone: [facility] [place] Comment on above: Thyroid labs Start: 02-14-2024 End: 02-18-2024 Telephone encounter Karen Azar GROUTER HELPER.CLINICAL THERAPIST Work Phone: [facility] [place] Comment on above: Results Start: 02-04-2024 End: 02-04-2024 ambulatory KAREN AZAR Facility:[facility] Start: 01-16-2024 End: 01-16-2024 MC Get Medical Advice Miguelito L Champion DO Work Phone: [facility] [place] Comment on above: Lab orders Start: 12-12-2023 End: 12-20-2023 ambulatory Miguelito L Champion DO Work Phone: [facility] [place] Comment on above: labs Start: 11-21-2023 End: 11-21-2023 ambulatory Miguelito L Champion DO Work Phone: [facility] [place] Comment on above: Lab results Start: 11-21-2023 End: 11-23-2023 Telephone encounter Miguelito L Champion DO Work Phone: [facility] [place] Comment on above: Results (thyroid) Start: 10-03-2023 End: 10-04-2023 ambulatory Miguelito L Champion DO Work Phone: [facility] [place] Comment on above: vermox Start: 09-22-2023 Telephone encounter Miguelito aponte DO Work Phone: [facility] [place] Comment on above: Medication Request Start: 08-08-2023 Telephone encounter Miguelito aponte DO Work Phone: [facility] [place] Start: 07-21-2023 End: 05-23-2024 Patient encounter status Miguelito Champion DO Work Phone: [facility] Start: 07-20-2023 End: 07-20-2023 Patient encounter procedure Miguelito Champion DO Work Phone: [facility] [place] Comment on above: Wellness examination (Primary Dx); Acquired hypothyroidism; Class 2 obesity with body mass index (BMI) of 37.0 to 37.9 in adult, unspecified obesity type, unspecified whether serious comorbidity present Start: 07-20-2023 End: 07-20-2023 Patient encounter status Miguelito Champion DO Work Phone: [facility] Work Phone: Start: 03-31-2023 Refill Karen Doe VAILCLINICAL THERAPIST Work Phone: [facility] [place] Comment on above: Refill Request Start: 03-22-2023 ambulatory Miguelito Cali son DO Work Phone: [facility] [place] Comment on above: Weight loss Start: 03-22-2023 Telephone encounter Miguelito aponte DO Work Phone: [facility] [place] Comment on above: Patient Question Start: 10-31-2022 ambulatory Miguelito bryson DO Work Phone: [facility] [place] Comment on above: Thyroid meds Start: 10-31-2022 Telephone encounter Miguelito aponte DO Work Phone: [facility] [place] Comment on above: Thyroid Problem Start: 10-20-2022 ambulatory Miguelito bryson DO Work Phone: [facility] [place] Comment on above: Manager Sterile thyroid Start: 10-20-2022 Telephone encounter Miguelito aponte DO Work Phone: [facility] [place] Comment on above: Medication Problem Start: 10-13-2022 Refill Karen Azar APRN.CLINICAL THERAPIST Work Phone: [facility] [place] Comment on above: Med Change Request Start: 10-05-2022 Telephone encounter Miguelito aponte DO Work Phone: [facility] [place] Start: 09-29-2022 ambulatory Miguelito bryson DO Work Phone: [facility] [place] Comment on above: Labs Start: 09-23-2022 Telephone encounter Miguelito aponte DO Work Phone: [facility] Comment on above: Results Start: 09-22-2022 ambulatory Miguelito bryson DO Work Phone: [facility] [place] Comment on above: Thyroid labs Start: 09-22-2022 End: 09-22-2022 Patient encounter procedure Karen Azar APRN.CLINICAL THERAPIST Work Phone: [facility] [place] Comment on above: Wellness examination (Primary Dx); Acquired hypothyroidism Start: 09-22-2022 End: 09-22-2022 Patient encounter status Karen Azar APRN.CLINICAL THERAPIST Work Phone: [facility] Work Phone: Start: 08-28-2022 Patient encounter status Bc Caputo Champion DO Work Phone: [facility] Work Phone: Start: 08-28-2022 Telephone encounter Miguelito aponte DO Work Phone: [facility] [place] Comment on above: Patient Question Start: 08-27-2022 ambulatory Miguelito bryson DO Work Phone: [facility] [place] Comment on above: Yearly Health Screen ing Start: 07-03-2022 Telephone encounter Miguelito aponte DO Work Phone: [facility] [place] Comment on above: Results Start: 06-25-2022 ambulatory Miguelito bryson DO Work Phone: [facility] [place] Comment on above: Labs Start: 06-13-2022 End: 06-13-2022 Patient encounter procedure Paula Lang PA-C Work Phone: [facility] Comment on above: Cat scratch of forea rm, left, initial encounter (Primary Dx) Start: 03-10-2022 ambulatory Miguelito bryson DO Work Phone: [facility] [place] Start: 03-10-2022 Patient encounter procedure Miguelito Champion DO Work Phone: [facility] [place] Comment on above: Appointment Start: 12-09-2021 Refill Karen Zurawic k GROUTER HELPER.CLINICAL THERAPIST Work Phone: [facility] [place] Comment on above: Refill Request Start: 08-07-2021 ambulatory Miguelito bryson DO Work Phone: [facility] [place] Comment on above: Insurance Form Start: 07-06-2021 End: 07-06-2021 Patient encounter procedure Miguelito Champion DO Work Phone: [facility] [place] Comment on above: Wellness examination (Primary Dx); Acquired hypothyroidism Start: 07-06-2021 End: 07-06-2021 Patient encounter status Miguelito Champion DO Work Phone: [facility] [place] Start: 06-13-2021 Refill Karen Zurawic k GROUTER HELPER.CLINICAL THERAPIST Work Phone: Family [facility] [place] Comment on above: Refill Request Start: 05-21-2021 Refill Karen Zurawic k GROUTER HELPER.CLINICAL THERAPIST Work Phone: [facility] [place] Comment on above: Refill Request Start: 05-18-2021 Telephone encounter Karen Donna awick GROUTER HELPER.CLINICAL THERAPIST Work Phone: [facility] [place] Comment on above: Results Start: 05-03-2021 Refill Karen Zurawic k GROUTER HELPER.CLINICAL THERAPIST Work Phone: [facility] [place] Comment on above: Refill Request Start: 04-29-2021 Patient encounter status Giovanni Dobbins MD Work Phone: [facility] [place] Start: 04-29-2021 Refill Jorge Dobbins MD Work Phone: [facility] [place] Comment on above: Refill Request Start: 04-06-2020 End: 04-06-2020 Subsequent hospital visit by physician Ghazal [facility] Work Phone: Radiology Comment on above: Foot injury, left, i nitial encounter [S99.922A] Start: 08-07-2018 End: 01-23-2019 Physical examination Miguelito Champion DO Work Phone: [facility] Start: 03-14-2018 End: 05-30-2019 Patient requested procedure Miguelito Champion DO Work Phone: [facility] Start: 12-24-2015 End: 03-28-2018 Patient encounter status Miguelito Champion DO Work Phone: [facility] Procedures Date Procedure Procedure Detail Performing Clinician Start: 10-15-2024 Antibody screen MIGUELITO CHAMPION Comment on above: Order Comment: Speci men Type: BLOOD SPECIMEN Ordering Facility: [facility] Address: [address] [place] [address] Performed By: #### 7 [id number], 5195-3, 95895-2 #### [facility] CLIA [id number] [address] [place] [address] [place] Start: 10-15-2024 Us preg uterus after 1st trimest / gestation Jossie Gonzales MD Work Phone: Start: 08-23-2024 Adult depression screening assessment Miguelito Champion DO Work Phone: Start: 08-22-2024 Us preg uterus after 1st trimest / gestation Shiloh Westfall APRN.CNP Work Phone: Start: 07-25-2024 Us preg uterus after 1st trimest / gestation Kristen Smith MD Work Phone: Start: 06-12-2024 Antibody screen MIGUELITO CHAMPION Comment on above: Order Comment: Speci men Type: BLOOD SPECIMEN Ordering Facility: [facility] Address: [address] [place] [address] Performed By: #### 7 [id number], 5195-3, [id number] #### [facility] CLIA [id number] [address] [place] [address] [place] Start: 05-23-2024 Us uterus limited 1/> fetuses Shiloh Souascalf GROUTER HELPER.CLINICAL THERAPIST Work Phone: Start: 07-06-2021 Adult depression screening assessment Miguelito Champion DO Work Phone: Start: 04-06-2020 Radex foot complete minimum 3 views Filiberto Groves GROUTER HELPER.CLINICAL THERAPIST Work Phone: Start: 08-07-2018 Adult depression screening assessment Jorge Dobbins MD Work Phone: Plan of Treatment Date Care Activity Detail Author Start: 05-23-2029 Screening for malign ant neoplasm of cervix Cervical Cancer Screening [facility] Start: 08-23-2025 Annual PCP Team Harmonica Maker kelley Disease Visit Annual PCP Team Chronic Disease Visit [facility] Start: 08-23-2025 Anxiety Screening Anxiety Screening [facility] Start: 08-23-2025 Depression Screening Depression Scre ening [facility] Start: 11-23-2024 End: 02-22-2025 Thyrotropin [Units/volume] in Serum or Plasma THYROID STIMULATING HORMONE Lab Routine Acquired hypothyroidism Expected: 11/23/2024, Expires: 02/22/2025 [facility] Work Phone: Comment on above: Expected: 11/23/2024 , Expires: 02/22/2025 Start: 11-23-2024 End: 02-22-2025 Thyroxine (T4) free [Mass/volume] in Serum or Plasma T4 FREE/FREE THYROXINE Lab Routine Acquired hypothyroidism Expected: 11/23/2024, Expires: 02/22/2025 [facility] Comment on above: Expected: 11/23/2024 , Expires: 02/22/2025 Start: 11-12-2024 End: 11-12-2024 Patient encounter procedure Maternal Medicine Comment on above: Growth Growth /OB Start: 11-12-2024 RSV Vaccine (1 - Ris k 1-dose series) RSV Vaccine (1 - Risk 1-dose series) [facility] Start: 10-29-2024 End: 10-29-2024 Patient encounter procedure 10/29/2024 10:40 AM EDT Routine Office Visit OB/Gynecology [address] [place] [address] Kristen Smith MD [address] [place] [address] OB OB/Gynecology Comment on above: OB Start: 10-15-2024 End: 10-15-2024 ambulatory 10/15/2024 3:00 PM EDT Results Only [place] [facility]PLACED BY [facility] [address] [place] [address] glucose lab-Requesting the dye free lemon [place] flavor [facility] Comment on above: glucose lab-Requesti ng the dye free lemon [place] flavor Start: 10-15-2024 End: 10-15-2024 Patient encounter procedure Maternal Medicine Comment on above: Growth Growth/glucose/OB Start: 10-15-2024 End: 01-14-2025 Thyrotropin [Units/volume] in Serum or Plasma [facility] Work Phone: Comment on above: Expected: 10/15/2024 , Expires: 01/14/2025 Start: 10-15-2024 End: 01-14-2025 Thyroxine (T4) free [Mass/volume] in Serum or Plasma [facility] Comment on above: Expected: 10/15/2024 , Expires: 01/14/2025 Start: 10-13-2024 Influenza vaccination [facility] Start: 09-23-2024 End: 12-23-2024 Thyrotropin [Units/volume] in Serum or Plasma THYROID STIMULATING HORMONE Lab Routine Acquired hypothyroidism Expected: 09/23/2024, Expires: 12/23/2024 [facility] Work Phone: Comment on above: Expected: 09/23/2024 , Expires: 12/23/2024 Start: 09-23-2024 End: 12-23-2024 Thyroxine (T4) free [Mass/volume] in Serum or Plasma T4 FREE/FREE THYROXINE Lab Routine Acquired hypothyroidism Expected: 09/23/2024, Expires: 12/23/2024 [facility] Comment on above: Expected: 09/23/2024 , Expires: 12/23/2024 Start: 09-18-2024 End: 09-18-2024 Patient encounter procedure 09/18/2024 2:40 PM EDT Routine Office Visit OB/Gynecology [address] [address] Kristen Smith MD [address] [place] [address] OB OB/Gynecology Comment on above: OB Start: 08-23-2024 End: 08-23-2024 Patient encounter procedure 08/23/2024 9:00 AM EDT Office Visit [facility] [place] [address] [facility], [place] [id number] Miguelito Champion DO [address] [facility] [place] [address] Physical Family Medicine [facility] Comment on above: Physical Start: 08-22-2024 End: 08-22-2024 Patient encounter procedure OB/Gynecology Comment on above: Twins/Anatomy/OB Anatomy/OB Start: 08-22-2024 End: 08-22-2024 Patient encounter procedure Maternal Medicine Comment on above: Twins/Anatomy Anatomy Start: 07-25-2024 End: 07-25-2024 Patient encounter procedure Maternal Medicine Comment on above: Early Anatomy OB Start: 07-19-2024 Annual PCP Team Harmonica Maker kelley Disease Visit Annual PCP Team Chronic Disease Visit [facility] Start: 07-08-2024 End: 07-08-2025 OBSTETRIC ULTRASOUND WHI OBSTETRIC ULTRASOUND [facility]I Anc Imaging Routine Twin with single intrauterine , first trimester, fetus 1 (HCC) 13 weeks gestation of (HCC) Obesity affecting in second trimester, unspecified obesity type (HCC) Expected: 07/08/2024, Expires: 07/08/2025 [facility] Work Phone: Comment on above: Expected: 07/08/2024 , Expires: 07/08/2025 Start: 07-04-2024 End: 07-04-2024 Patient encounter procedure Maternal Medicine Comment on above: Twin/Nuchal Twins/Nuchal/OB Start: 06-25-2024 End: 09-24-2024 Thyrotropin [Units/volume] in Serum or Plasma THYROID STIMULATING HORMONE Lab Routine Hypothyroidism, acquired Expected: 06/25/2024, Expires: 09/24/2024 [facility] Work Phone: Comment on above: Expected: 06/25/2024 , Expires: 09/24/2024 Start: 06-25-2024 End: 09-24-2024 Thyroxine (T4) free [Mass/volume] in Serum or Plasma T4 FREE/FREE THYROXINE Lab Routine Hypothyroidism, acquired Expected: 06/25/2024, Expires: 09/24/2024 [facility] Comment on above: Expected: 06/25/2024 , Expires: 09/24/2024 Start: 06-05-2024 End: 06-05-2024 Patient encounter procedure 06/05/2024 1:00 PM EDT Routine Office Visit OB[facility] [address] [facility] [place] [address] [facility] [address] [place] [address] Twins /Dating OB/Gynecology Comment on above: Twins /Dating Start: 05-23-2024 End: 08-22-2024 ANEMIA REFLEX PANEL ANEMIA REFLEX PANEL Lab Routine with uncertain dates in first trimester (HCC) Expected: 05/23/2024, Expires: 08/22/2024 [facility] Work Phone: Comment on above: Expected: 05/23/2024 , Expires: 08/22/2024 Start: 05-23-2024 End: 08-22-2024 Chromosome 21 trisomy [Presence] in Blood or Tissue by Cytogenetics [id number] PLUS Lab Routine Twin gestation in first trimester, unspecified multiple gestation type (HCC) Expected: 05/23/2024, Expires: 08/22/2024 [facility] Comment on above: Expected: 05/23/2024 , Expires: 08/22/2024 Start: 05-23-2024 End: 08-22-2024 Hemoglobin A1c in Blood HEMOGLOBIN A1C Lab Routine with uncertain dates in first trimester (HCC) Expected: 05/23/2024, Expires: 08/22/2024 [facility] Comment on above: Expected: 05/23/2024 , Expires: 08/22/2024 Start: 05-23-2024 End: 08-22-2024 Hepatitis B virus surface Ag [Presence] in Serum HEPATITIS B SURFACE ANTIGEN Lab Routine with uncertain dates in first trimester (HCC) Expected: 05/23/2024, Expires: 08/22/2024 [facility] Comment on above: Expected: 05/23/2024 , Expires: 08/22/2024 Start: 05-23-2024 End: 08-22-2024 Hepatitis C virus Ab [Presence] in Serum HEPATITIS C ANTIBODY IA WITH CONFIRMATION Lab Routine with uncertain dates in first trimester (HCC) Expected: 05/23/2024, Expires: 08/22/2024 [facility] Comment on above: Expected: 05/23/2024 , Expires: 08/22/2024 Start: 05-23-2024 End: 08-22-2024 HIV 1+2 Ab [Presence] in Serum or Plasma by Immunoassay HIV 1/2 COMBO WITH REFLEX TO DIFFERENTIATION Lab Routine with uncertain dates in first trimester (HCC) Expected: 05/23/2024, Expires: 08/22/2024 [facility] Comment on above: Expected: 05/23/2024 , Expires: 08/22/2024 Start: 05-23-2024 End: 05-23-2025 OBSTETRIC ULTRASOUND [facility] Comment on above: Expected: 05/23/2024 , Expires: 05/23/2025 Start: 05-23-2024 End: 08-22-2024 RUBELLA IGG ANTIBODY RUBELLA IGG ANTIBODY Lab Routine with uncertain dates in first trimester (HCC) Expected: 05/23/2024, Expires: 08/22/2024 [facility] Comment on above: Expected: 05/23/2024 , Expires: 08/22/2024 Start: 05-23-2024 End: 08-22-2024 SYPHILIS TREPONEMAL W/REFLEX SYPHILIS TREPONEMAL W/REFLEX Lab Routine with uncertain dates in first trimester (HCC) Expected: 05/23/2024, Expires: 08/22/2024 [facility] Comment on above: Expected: 05/23/2024 , Expires: 08/22/2024 Start: 05-23-2024 End: 08-22-2024 TYPE + SCREEN TYPE + SCREEN Blood Bank Routine with uncertain dates in first trimester (HCC) Expected: 05/23/2024, Expires: 08/22/2024 [facility] Comment on above: Expected: 05/23/2024 , Expires: 08/22/2024 Start: 05-23-2024 End: 05-23-2024 Patient encounter procedure 05/23/2024 8:15 AM EDT Initial Office Visit OB/Gynecology [address] [place] [id number] Shiloh Westfall APRN.CLINICAL THERAPIST [address] [facility] [place] [address] New OB=LMP 2 OB/Gynecology Comment on above: New OB=LMP 2/ Start: 05-05-2024 End: 08-04-2024 Thyrotropin [Units/volume] in Serum or Plasma THYROID STIMULATING HORMONE Lab Routine Hypothyroidism, acquired Expected: 05/05/2024, Expires: 08/04/2024 [facility] Work Phone: Comment on above: Expected: 05/05/2024 , Expires: 08/04/2024 Start: 05-05-2024 End: 08-04-2024 Thyroxine (T4) free [Mass/volume] in Serum or Plasma T4 FREE/FREE THYROXINE Lab Routine Hypothyroidism, acquired Expected: 05/05/2024, Expires: 08/04/2024 [facility] Comment on above: Expected: 05/05/2024 , Expires: 08/04/2024 Start: 03-25-2024 Urine microalbumin profile [facility] Start: 03-17-2024 End: 06-16-2024 Thyrotropin [Units/volume] in Serum or Plasma THYROID STIMULATING HORMONE Lab Routine Acquired hypothyroidism Expected: 03/17/2024, Expires: 06/16/2024 [facility] Work Phone: Comment on above: Expected: 03/17/2024 , Expires: 06/16/2024 Start: 03-17-2024 End: 06-16-2024 Thyroxine (T4) free [Mass/volume] in Serum or Plasma T4 FREE/FREE THYROXINE Lab Routine Acquired hypothyroidism Expected: 03/17/2024, Expires: 06/16/2024 [facility] Comment on above: Expected: 03/17/2024 , Expires: 06/16/2024 Start: 03-17-2024 End: 06-16-2024 Triiodothyronine (T3) [Mass/volume] in Serum or Plasma T3 Lab Routine Acquired hypothyroidism Expected: 03/17/2024, Expires: 06/16/2024 [facility] Comment on above: Expected: 03/17/2024 , Expires: 06/16/2024 Start: 10-14-2023 Covid-19 Vaccine () Covid-19 Vaccine () [facility] Start: 10-14-2023 Influenza vaccination [facility] Start: 10-08-2023 End: 01-07-2024 CBC panel - Blood by Automated count COMPLETE BLOOD COUNT Lab Routine Acquired hypothyroidism Leukocytosis, unspecified type Expected: 10/08/2023, Expires: 01/07/2024 [facility] Comment on above: Expected: 10/08/2023 , Expires: 01/07/2024 Start: 10-08-2023 End: 01-07-2024 Thyrotropin [Units/volume] in Serum or Plasma THYROID STIMULATING HORMONE Lab Routine Acquired hypothyroidism Expected: 10/08/2023, Expires: 01/07/2024 [facility] Work Phone: Comment on above: Expected: 10/08/2023 , Expires: 01/07/2024 Start: 10-08-2023 End: 01-07-2024 Thyroxine (T4) free [Mass/volume] in Serum or Plasma T4 FREE/FREE THYROXINE Lab Routine Acquired hypothyroidism Expected: 10/08/2023, Expires: 01/07/2024 [facility] Comment on above: Expected: 10/08/2023 , Expires: 01/07/2024 Start: 10-08-2023 End: 01-07-2024 Triiodothyronine (T3) Free [Mass/volume] in Serum or Plasma T3, FREE Lab Routine Acquired hypothyroidism Expected: 10/08/2023, Expires: 01/07/2024 [facility] Comment on above: Expected: 10/08/2023 , Expires: 01/07/2024 Start: 09-23-2023 ANNUAL PCP TEAM VENDING MACHINE REPAIRER KELLEY DISEASE VISIT ANNUAL PCP TEAM CHRONIC DISEASE VISIT [facility] Start: 09-23-2023 COVID-19 VACCINE (#1) COVID-19 VACCI NE (#1) [facility] Comment on above: Postponed from 09/18 (Declined at this time) Start: 09-23-2023 HPV TESTING HPV TESTING [facility] Comment on above: Postponed from 03/21 (Declined at this time) Start: 09-23-2023 Screening for malign ant neoplasm of cervix HPV Testing [facility] Comment on above: Postponed from 03/21 (Declined at this time) Start: 03-26-2023 PAP TESTING PAP TESTING [facility] Start: 03-26-2023 Screening for malign ant neoplasm of cervix Pap Testing [facility] Start: 02-12-2023 Behavioral Health Screening Behavioral Health Screening [facility] Start: 02-12-2023 Depression Assessment Depression Ass essment [facility] Start: 10-26-2022 End: 12-26-2022 Thyrotropin [Units/volume] in Serum or Plasma TSH BLD Lab Routine Acquired hypothyroidism Expected: 10/26/2022, Expires: 12/26/2022 [facility] Work Phone: Comment on above: Expected: 10/26/2022 , Expires: 12/26/2022 Start: 10-26-2022 End: 12-26-2022 Thyroxine (T4) free [Mass/volume] in Serum or Plasma T4 FREE/FREE THYROX Lab Routine Acquired hypothyroidism Expected: 10/26/2022, Expires: 12/26/2022 [facility] Work Phone: Comment on above: Expected: 10/26/2022 , Expires: 12/26/2022 Start: 10-26-2022 End: 12-26-2022 Triiodothyronine (T3) [Mass/volume] in Serum or Plasma T3 BLD Lab Routine Acquired hypothyroidism Expected: 10/26/2022, Expires: 12/26/2022 [facility] Work Phone: Comment on above: Expected: 10/26/2022 , Expires: 12/26/2022 Start: 10-13-2022 Covid-19 Vaccine () Covid-19 Vaccine () [facility] Start: 10-13-2022 Influenza vaccination [facility] Start: 09-11-2022 End: 11-11-2022 THYROID PEROXIDASE ANTIBODY BLOOD THYROID PEROXIDASE ANTIBODY BLOOD Lab Routine Acquired hypothyroidism Expected: 09/11/2022 (Approximate), Expires: 11/11/2022 [facility] Work Phone: Comment on above: Expected: 09/11/2022 (Approximate), Expires: 11/11/2022 Start: 09-11-2022 End: 11-11-2022 Thyrotropin [Units/volume] in Serum or Plasma TSH BLD Lab Routine Acquired hypothyroidism Expected: 09/11/2022 (Approximate), Expires: 11/11/2022 [facility] Work Phone: Comment on above: Expected: 09/11/2022 (Approximate), Expires: 11/11/2022 Start: 09-11-2022 End: 11-11-2022 Thyroxine (T4) free [Mass/volume] in Serum or Plasma T4 FREE/FREE THYROX Lab Routine Acquired hypothyroidism Expected: 09/11/2022 (Approximate), Expires: 11/11/2022 [facility] Work Phone: Comment on above: Expected: 09/11/2022 (Approximate), Expires: 11/11/2022 Start: 09-11-2022 End: 11-11-2022 Triiodothyronine (T3) Free [Mass/volume] in Serum or Plasma T3 FREE BLD Lab Routine Acquired hypothyroidism Expected: 09/11/2022 (Approximate), Expires: 11/11/2022 [facility] Work Phone: Comment on above: Expected: 09/11/2022 (Approximate), Expires: 11/11/2022 Start: 07-06-2022 Adult depression screening assessment DEPRESSION SCREENING [facility] Start: 07-06-2022 ANNUAL PCP TEAM VENDING MACHINE REPAIRER KELLEY DISEASE VISIT ANNUAL PCP TEAM CHRONIC DISEASE VISIT [facility] Start: 07-06-2022 COVID-19 VACCINE (#1) COVID-19 VACCI NE (#1) [facility] Comment on above: Postponed from 03/21 (Declined at this time) Postponed from 09/18 (Declined at this time) Start: 02-12-2022 DEPRESSION ASSESSMENT DEPRESSION ASS ESSMENT [facility] Start: 10-13-2021 Influenza vaccination C [facility] Start: 07-06-2021 End: 09-05-2021 T3 FREE BLD [facility] Work Phone: Comment on above: Expected: 07/06/2021 , Expires: 09/05/2021 Start: 07-06-2021 End: 09-05-2021 T4 FREE/FREE THYROX [facility] Work Phone: Comment on above: Expected: 07/06/2021 , Expires: 09/05/2021 Start: 07-06-2021 End: 09-05-2021 THYROID PEROXIDASE ANTIBODY BLOOD [facility] Work Phone: Comment on above: Expected: 07/06/2021 , Expires: 09/05/2021 Start: 07-06-2021 End: 09-05-2021 Thyrotropin [Units/volume] in Serum or Plasma [facility] Work Phone: Comment on above: Expected: 07/06/2021 , Expires: 09/05/2021 Start: 05-02-2021 End: 07-02-2021 CBC panel - Blood by Automated count CBC Lab Routine Acquired hypothyroidism Expected: 05/02/2021, Expires: 07/02/2021 [facility] Work Phone: Comment on above: Expected: 05/02/2021 , Expires: 07/02/2021 Start: 05-02-2021 End: 07-02-2021 Comprehensive metabolic 2000 panel - Serum or Plasma COMP METABOLIC PANEL Lab Routine Acquired hypothyroidism Expected: 05/02/2021, Expires: 07/02/2021 [facility] Work Phone: Comment on above: Expected: 05/02/2021 , Expires: 07/02/2021 Start: 05-02-2021 End: 07-02-2021 Hemoglobin A1c/Hemoglobin.total in Blood HGB A1C Lab Routine Wellness examination Expected: 05/02/2021, Expires: 07/02/2021 [facility] Work Phone: Comment on above: Expected: 05/02/2021 , Expires: 07/02/2021 Start: 05-02-2021 End: 07-02-2021 LIPID PANEL BASIC LIPID PANEL BASIC Lab Routine Wellness examination Expected: 05/02/2021, Expires: 07/02/2021 [facility] Work Phone: Comment on above: Expected: 05/02/2021 , Expires: 07/02/2021 Start: 05-02-2021 End: 07-02-2021 T3 BLD T3 BLD Lab Routine Wellness examination Expected: 05/02/2021, Expires: 07/02/2021 [facility] Work Phone: Comment on above: Expected: 05/02/2021 , Expires: 07/02/2021 Start: 05-02-2021 End: 07-02-2021 T4 FREE/FREE THYROX T4 FREE/FREE THYROX Lab Routine Wellness examination Expected: 05/02/2021, Expires: 07/02/2021 [facility] Work Phone: Comment on above: Expected: 05/02/2021 , Expires: 07/02/2021 Start: 05-02-2021 End: 07-02-2021 Thyrotropin [Units/volume] in Serum or Plasma TSH BLD Lab Routine Wellness examination Expected: 05/02/2021, Expires: 07/02/2021 [facility] Work Phone: Comment on above: Expected: 05/02/2021 , Expires: 07/02/2021 Start: 05-02-2021 End: 07-02-2021 VITAMIN D 25 HYDROXY VITAMIN D 25 HYDROXY Lab Routine Wellness examination Expected: 05/02/2021, Expires: 07/02/2021 [facility] Work Phone: Comment on above: Expected: 05/02/2021 , Expires: 07/02/2021 Start: 03-26-2021 Screening for malign ant neoplasm of cervix Cervical Cancer Screening [facility] Start: 02-12-2021 DEPRESSION ASSESSMENT DEPRESSION ASS ESSMENT [facility] Start: 10-13-2020 Influenza vaccination INFLUENZA (#1) [facility] Start: 05-29-2020 ANNUAL PCP TEAM VENDING MACHINE REPAIRER KELLEY DISEASE VISIT ANNUAL PCP TEAM CHRONIC DISEASE VISIT [facility] Start: 08-08-2019 Adult depression screening assessment DEPRESSION SCREENING [facility] Start: 2019 HPV TESTING HPV TESTING [facility] Start: 12-15-2011 HPV VACCINE (3 - 3-d ose series) HPV VACCINE (3 - 3-dose series) [facility] Start: 11-06-2011 HPV Vaccine (3 - 3-d ose series) HPV Vaccine (3 - 3-dose series) [facility] Start: 2007 Anxiety Screening Anxiety Screening [facility] Start: 2007 Depression Screening Depression Scre ening [facility] Start: 1994 COVID-19 VACCINE (1) COVID-19 VACCIN E (1) [facility] Start: 1989 COVID-19 VACCINE (#1) COVID-19 VACCI NE (#1) [facility] Bacteria identified in Urine by Culture BACTERIAL CULTURE, URINE Microbiology Routine with uncertain dates in first trimester ([facility]) 05/23/2024 9:08 AM EDT [facility] Chlamydia trachomatis+Neisseria gonorrhoeae DNA [Presence] in Unspecified specimen by SAMSON with probe detection GONORRHEA/CHLAMYDIA NAAT Lab Routine with uncertain dates in first trimester ([facility]) 05/23/2024 9:08 AM EDT [facility] End: 02-21-2025 OBSTETRIC ULTRASOUND WHI OBSTETRIC ULTRASOUND WHI Anc Imaging Routine High-risk , multigravida of advanced maternal age, antepartum ([facility]) 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 ([facility]) Class 2 obesity without serious comorbidity with body mass index (BMI) of 37.0 to 37.9 in adult, unspecified obesity type Once per month for 5 Occurrences starting 08/25/2024 until 02/21/2025 [facility] Work Phone: Comment on above: Once per month for 5 Occurrences starting 08/25/2024 until 02/21/2025 PAP TEST PAP TEST Lab Omaira newell Screening for cervical cancer Special screening examination for human papillomavirus (HPV) 05/23/2024 9:08 AM EDT [facility] TRICHOMONAS VAGINALI S NAAT TRICHOMONAS VAGINALIS NAAT Lab Routine Screen for STD (sexually transmitted disease) 05/23/2024 9:08 AM EDT [facility] Immunizations Immunization Date Immunization Notes Care Provider Ivonne bhatt 10-15-2024 RHO(D) immune globul in- IV or IM Lauren Madera APRN.CNP Work Phone: [facility] 05-08-2019 RHO(D) immune globul in- IV or IM Jorge Dobbins MD Work Phone: [facility] 03-26-2018 RHO(D) immune globul in- IV or IM Jorge Dobbins MD Work Phone: [facility] Work Phone: 12-05-2017 influenza virus vaccine, unspecified formulation Jorge Dobbins MD Work Phone: [facility] 12-05-2017 influenza, seasonal, injectable Jorge Dobbins MD Work Phone: [facility] 11-17-2016 influenza virus vaccine, unspecified formulation Jorge Dobbins MD Work Phone: [facility] 11-24-2015 influenza virus vaccine, unspecified formulation Jorge Dobbins MD Work Phone: [facility] 11-27-2014 influenza virus vaccine, unspecified formulation Jorge Dobbins MD Work Phone: [facility] 04-02-2014 RHO(D) immune globul in- IV or IM Jorge Dobbins MD Work Phone: [facility] 03-25-2014 tetanus toxoid, redu gracie diphtheria toxoid, and acellular pertussis vaccine, adsorbed Jorge Dobbins MD Work Phone: [facility] 11-20-2013 influenza, seasonal, injectable Jorge Dobbins MD Work Phone: [facility] Work Phone: 11-20-2012 influenza virus vaccine, whole virus Jorge Dobbins MD Work Phone: [facility] 11-13-2011 influenza virus vaccine, live, attenuated, for intranasal use Jorge Dobbins MD Work Phone: [facility] 08-14-2011 human papilloma viru s vaccine, quadrivalent Jorge Dobbins MD Work Phone: [facility] Work Phone: 05-11-2011 varicella virus vaccine Will tommie Dobbins MD Work Phone: [facility] 12-14-2008 tuberculin skin test ; purified protein derivative solution, intradermal Miguelito Champion DO Work Phone: [facility] 12-01-2008 influenza virus vaccine, unspecified formulation Jorge Dobbins MD Work Phone: [facility] Work Phone: 07-15-2008 tetanus toxoid, redu gracie diphtheria toxoid, and acellular pertussis vaccine, adsorbed Jorge Dobbins MD Work Phone: [facility] 07-07-2008 hepatitis B vaccine, adult dosage Jorge Dobbins MD Work Phone: [facility] Work Phone: 07-07-2008 human papilloma viru s vaccine, quadrivalent Jorge Dobbins MD Work Phone: [facility] Work Phone: 05-10-2008 hepatitis B vaccine, adult dosage Jorge Dobbins MD Work Phone: [facility] Work Phone: 01-27-2008 tuberculin skin test ; purified protein derivative solution, intradermal Miguelito Champion DO Work Phone: [facility] 01-20-2008 tuberculin skin test ; purified protein derivative solution, intradermal Miguelito Champion DO Work Phone: [facility] Payers Date Payer Category Payer Self-pay 2023 Private Health Insurance [id number] 2023 Private Health Insurance [id number] 2021 Unknown [employer] PPO [id number] 2021-Present [phone] [address] [place] [address] PPO [id number] 2018 Unknown [employer] PPO OOS [id number] 2018-Present [phone] [address] [place] [address] PPO [id number] 2018 Unknown [id number] Unknown [id number] Social History Date Type Detail Facility Start: 08-14-2011 End: 06-13-2022 Tobacco smoking status WAIS Never smoked tobacco [facility] Start: 04-06-2020 End: 10-29-2024 Alcohol intake Current non-drinker of alcohol (finding) [facility] Start: 05-28-2019 History SDOH Alcohol Frequency 1 [facility] Start: 05-28-2019 History SDOH Alcohol Std Drinks 98 [facility] Start: 10-14-2013 History SDOH Alcohol Comment very rarely, maybe 2x yearly- not when [facility] Start: 05-28-2019 History SDOH Social Connections Phone 5 [facility] Start: 05-28-2019 History SDOH Social Connections Get Together 2 [facility] Start: 05-28-2019 History SDOH Social Connections Nondenominational 3 [facility] Start: 05-28-2019 History SDOH Physical Activity DPW 0 [facility] Start: 05-28-2019 Education 15 [facility] Start: 1989 Sex Assigned At Female [facility] Start: 03-07-2020 End: 07-06-2021 Exposure to SARS-CoV-2 (event) Not sure [facility] Work Phone: Start: 08-14-2011 End: 06-13-2022 Tobacco use and exposure Smokeless tobacco non-user [facility] Work Phone: Start: 05-28-2019 End: 09-21-2022 History of Social function [facility] Start: 05-28-2019 End: 09-21-2022 Social connection and isolation panel [facility] Do you belong to any clubs or organizations such as zoroastrian groups, unions, fraternal or athletic groups, or school groups? Yes [facility] Are you now , , , , never or living with a partner? [facility] How often to you hav e a drink containing alcohol? Never [facility] Start: 01-14-2012 How many standard drinks containing alcohol do you have on a typical day? Patient refused [facility] Do you feel stress - tense, restless, nervous, or anxious, or unable to sleep at night because your mind is troubled all the time - these days [OSQ] Only a little [facility] (I/We) worried wheth er (my/our) food would run out before (I/we) got money to buy more. Never true [facility] Start: 04-22-2018 Gender identity Identifies as female gender (finding) [facility] Start: 04-22-2018 Sexual orientation Heterosexual (finding) [facility] How hard is it for y ou to pay for the very basics like food, housing, medical care, and heating Not very hard [facility] In the past 12 month s, was there a time when you were not able to pay the mortgage or rent on time? No [facility] Start: 04-16-2024 [facility] Do you feel stress - tense, restless, nervous, or anxious, or unable to sleep at night because your mind is troubled all the time - these days [OSQ] Not at all [facility] Goals Date Patient Goal Desired Activity /State Personal health goal Functional Status Date Assessment Result Facility 08-17-2024 Total score [AUDIT-C] 0 08/18/19 25 9:57 AM EDT Shanel Ordoñez [facility] 08-17-2024 How often to you hav e a drink containing alcohol? Never 08/17/2024 9:57 AM EDT Shanel Ordoñez Never [facility] 08-17-2024 Functional status Patient does n ot drink 08/17/2024 9:57 AM EDT Shanel Ordoñez Patient does not drink [facility] 08-17-2024 How often do you hav e 6 or more drinks on 1 occasion? Never 08/17/2024 9:57 AM EDT Shanel Ordoñez Never [facility] 08-21-2014 Are you deaf, or do you have serious difficulty hearing No 08/21/2014 8:49 AM Juliana Castro, GILMAR No [facility] 08-21-2014 Are you blind, or do you have serious difficulty seeing, even when wearing glasses No 08/21/2014 8:49 AM Juliana Castro, GILMAR No [facility] 08-21-2014 Do you have serious difficulty walking or climbing stairs No 08/21/2014 8:49 AM Juliana Castro RN No [facility] 08-21-2014 Do you have difficul ty dressing or bathing No 08/21/2014 8:49 AM Juliana Castro, GILMAR No [facility] 08-21-2014 Because of a physica l, mental, or emotional condition, do you have difficulty doing errands alone such as visiting a physician's office or shopping No 08/21/2014 8:49 AM Juliana Castro, GILMAR No [facility] Mental Status Date Assessment Result Facility 08-21-2014 Because of a physica l, mental, or emotional condition, do you have serious difficulty concentrating, remembering, or making decisions No 08/21/2014 8:49 AM Juliana Castro RN No [facility] Clinical Notes 12-19-2018 to 12-18-2024 Telephone Encounter - Juliana Huston RN - 10/29/2024 12:33 PM EDTTelephone Encounter - Juliana Huston RN - 10/29/2024 12:33 PM EDTPatient Kristen Jerez RN - 10/15/2024 4:29 PM EDT Note Date & Type Note Facility 12-18-2024 Note HNO ID: [id number] Author: KRISTEN SMITH MD Service: ? Author Type: Physician Type: Progress Notes Filed: 12/18/2024 12:18 Note Text: NST SUMMARY PROVIDER ASSESSMENT AND INTERPRETATION Indications for NST: AMA and Obesity Baseline: 145 Variability: Moderate Accelerations: Present 15 X 15 Decelerations: None Interpretation: Reactive SIGNATURE: Kristen Smith MD [facility] 10-29-2024 Telephone encounter Note Order signed and faxed. Juliana Huston RN [facility] 10-29-2024 Miscellaneous Notes Order signed and faxed. Juliana Huston RN Received breast pump RX from [facility]. To DM to sign. Kristen Chang RN documented in this encounter [facility] 10-29-2024 Miscellaneous Notes S: Nena Leiva is a 34 year old female who presents at 01/07/2025, by Last Menstrual Period for a routine visit. Denies headache, visual changes, chest pain, shortness of breath, vaginal bleeding, leakage of fluid, or dysuria. Feeling well, no complaints. Good movement, No contractions O: See flow sheet Gen: No apparent distress Abd: Gravid, nontender GCT normal Growth next visit ASSESSMENT/PLAN: 1. 30 weeks gestation of ([facility]) - ICD9: V22.2, ICD10: Z3A.30 (primary diagnosis) 2. Supervision of high risk in second trimester ([facility]) - ICD9: V23.9, ICD10: O09.92 3. Twin with single intrauterine , first trimester, fetus 1 ([facility]) - ICD9: 651.33, ICD10: O31.21X1 4. AMA (advanced maternal age) multigravida 35+, second trimester ([facility]) - ICD9: 659.63, ICD10: O09.522 5. Obesity affecting in second trimester, unspecified obesity type ([facility]) - ICD9: 649.13, ICD10: O99.212 BMI 35 Weekly NSTs at 36 Growth q 4 Kristen Smith MD documented in this encounter [facility] 10-29-2024 Progress note Formatting of t his note might be different from the original. S: Nena Leiva is a 34 year old female who presents at 01/07/2025, by Last Menstrual Period for a routine visit. Denies headache, visual changes, chest pain, shortness of breath, vaginal bleeding, leakage of fluid, or dysuria. Feeling well, no complaints. Good movement, No contractions O: See flow sheet Gen: No apparent distress Abd: Gravid, nontender GCT normal Growth next visit ASSESSMENT/PLAN: 1. 30 weeks gestation of ([facility]) - ICD9: V22.2, ICD10: Z3A.30 (primary diagnosis) 2. Supervision of high risk in second trimester ([facility]) - ICD9: V23.9, ICD10: O09.92 3. Twin with single intrauterine , first trimester, fetus 1 ([facility]) - ICD9: 651.33, ICD10: O31.21X1 4. AMA (advanced maternal age) multigravida 35+, second trimester ([facility]) - ICD9: 659.63, ICD10: O09.522 5. Obesity affecting in second trimester, unspecified obesity type ([facility]) - ICD9: 649.13, ICD10: O99.212 BMI 35 Weekly NSTs at 36 Growth q 4 Kristen Smith MD [facility] 10-29-2024 Instructions Tasha Carias MA - 10/29/2024 10:57 AM EDT SEQUENTIAL SCREENINGS The [facility] offers sequential screenings for women who are interested in screenings for chromosomal abnormalities and certain defects during a . The sequential screen combines ultrasound and blood tests to determine the risk of chromosomal abnormalities, including Down's Syndrome (Trisomy 21) and Trisomy 18, as well as open neural tube defects including spina bifida. Ultrasound examination is performed between 11 weeks and 13 weeks gestational age. Blood tests are drawn after the ultrasound and again later in the between 15 and 21 weeks gestational age. Please let your physician know if you are interested in this testing. It will require an appointment with our technician helper instrument. This is not an ultrasound performed by a physician in our office during a routine visit. SIGNS AND SYMPTOMS OF LABOR 1. Contractions every 10 minutes or more often 2. Clear, pink, or brownish fluid (water) leaking from vagina 3. Feeling that baby is pushing down, pressure 4. Low, dull backache 5. Cramps that feel like a period 6. Cramps with or without diarrhea If you notice any of the above symptoms, contact our office at [phone] and ask to speak with a nurse. After hours, you can call doctors registry at [phone] OR call [facility] at [phone] and ask to have the doctor systems development consultant paged. If you consider this an emergency, dial 6-1-3 or go to your nearest emergency department. NEED HELP? Are you dealing with a violent or abusive relationship? Are you a victim of rape or sexual assult? Call [facility] 24 hour Crisis Hotline: 927.907.3647 or 542-284-1672. MANUAL Your Guide to a Healthy manual is now on-line. Visit [email or web address] to download your free copy documented in this encounter [facility] [facility] 10[facility]24 Telephone encounter Note Received breast pump RX from [facility]. To DM to sign. Kristen Chang RN [facility] 10-27-2024 Telephone encounter Note See telephone note [facility] Work Phone: 10-27-2024 Miscellaneous Notes See telephone note documented in this encounter [facility] 10-24-2024 Telephone encounter Note Pt. informed via my chart. [facility] Work Phone: 10-24-2024 Miscellaneous Notes Pt. informed via my chart. Please have her increase her dose to 2 tablets 5 days a week and 1 tablet 2 days a week for her LABORER ORCHARD thyroid 120 mg Recheck labs 1 month Miguelito Champion DO Please see pt message -- I had labs drawn last week for OBGYN but I think my thyroid labs went to them for review. I just wanted to make sure you had a chance to review them and orders were in for the next time you want me to draw again. Thanks! Ali documented in this encounter [facility] 10-24-2024 Telephone encounter Note Please have her increase her dose to 2 tablets 5 days a week and 1 tablet 2 days a week for her LABORER ORCHARD thyroid 120 mg Recheck labs 1 month Miguelito Champion DO [facility] 10-24-2024 Telephone encounter Note Please see pt message -- I had labs drawn last week for OBGYN but I think my thyroid labs went to them for review. I just wanted to make sure you had a chance to review them and orders were in for the next time you want me to draw again. Thanks! Ali [facility] 10-24-2024 Telephone encounter Note TURNED INTOTE Crystal Giraldo MA [facility] 10-24-2024 Miscellaneous Notes TURNED INTOTE Crystal Giraldo MA documented in this encounter [facility] 10-16-2024 Note Indication Evaluation of growth Maternal obesity, BMI >35, Advanced maternal age, vanishing twin Impression - Single, live, intrauterine . - presentation is breech. - The biometry is measuring ahead of the assigned gestational dating. - The EFW is 1466 g, at the 94%. AC is at the >99%. - Amniotic fluid volume is mild polyhydramnios with an MVP of 8.4 cm and ANA CRISTINA of 22.2 cm. - The placenta is posterior, fundal. - No malformations visualized on a limited survey as detailed below. Recommendations - growth scan in 4 weeks - Additional follow up as clinically indicated. Maternal Assessment Height 165 cm Height (ft) 5 ft Height (in) 5 in Physical Exam Initial weight (lb) 213 lb Initial BMI 35.45 kg/m Maternal assessment other: 4 Para 3 REMOTE READ Method Transabdominal ultrasound examination Davies . Number of fetuses: 1 Dating LMP on: 04/02/2024 GA by LMP 28 w + 0 d VENICE by LMP: 01/07/2025 GA by prior assessment 28 w + 0 d VENICE by prior assessment: 01/07/2025 Ultrasound examination on: 10/15/2024 GA by U/S based upon: AC, BPD, Femur, HC GA by U/S 29 w + 1 d VENICE by U/S: 12/30/2024 Assigned: based on stated VENICE, selected on 10/15/2024 Assigned GA 28 w + 0 d Assigned VENICE: 01/07/2025 General Evaluation Cardiac activity present. FHR 151 bpm. movements: present. Presentation: breech Placenta: Placental site: posterior, fundal Umbilical cord: Cord vessels: 3 vessel cord Amniotic fluid: Amount of AF: mild polyhydramnios. MVP 8.4 cm. ANA CRISTINA 22.2 cm. Q1 4.1 cm, Q2 8.4 cm, Q3 3.7 cm, Q4 6.0 cm Growth Overview Exam date GA BPD (mm) HC (mm) AC (mm) FL (mm) HL (mm) EFW (g) 07/25/2024 16w 2d 34.1 60% 132.2 57% 118.4 88% 21.9 67% 21.8 68% 177 84% 08/22/2024 20w 2d 47.3 50% 184 65% 177.5 97% 34.6 83% 33.3 84% 443 98% 10/15/2024 28w 0d 71.3 59% 270.2 71% 274.2 >99% 51 37% 1466 94% Biometry Standard BPD 71.3 mm 28w 4d 59% Hadlock OFD 96.5 mm 28w 4d 77% Nicolaides HC 270.2 mm 28w 6d 71% Felipe AC 274.2 mm 31w 3d >99% Hadlock Femur 51.0 mm 27w 3d 37% Felipe EFW 1,466 g 29w 3d 94% Hadlock EFW (lb) 3 lb EFW (oz) 4 oz EFW by: Hadlock (HC-AC-FL) Extended Prop Maker 3.8 mm Extremities / Bony Struc FL / HC 0.19 Other Structures FHR 151 bpm Anatomy Lateral ventricles: normal Cavum septi pellucidi: normal Cerebellum: normal Cisterna magna: normal 4-chamber view: normal RVOT view: normal LVOT view: normal 3-vessel view: normal Heart / Thorax Situs: situs solitus (normal) Diaphragm: normal Stomach: normal Kidneys: normal Bladder: normal sex: female Wants to know sex: yes Performed By: Juliana Fischer RDMS, RVT Read By: Jossie Gonzales M.D. [facility] 10-15-2024 Note HNO ID: [id number] Author: KRISTEN CHANG RN Service: ? Author Type: Registered Nurse Type: Progress Notes Filed: 10/15/2024 16:30 Note Text: Nena Leiva 34 year old is here for her injection of Rhophylac. Nena Leiva ABO/RH(D) (no units) Date Value 12/27/2018 A NEGATIVE Antibody Screen (no units) Date Value 06/12/2024 Negative 05/08/2019 NEG Nena Leiva is RH Negative Rhophylac was given without incident. See immunizations for details of immunizations administered today. Provider Lauren Madera CNP was present in office at time of injection Nena Leiva was given her Rhophylac pocket card. Kristen Chang RN [facility] 10-15-2024 History of Present illness Narrative Nena Leiva 34 year old is here for her injection of Rhophylac. Nena Leiva ABO/RH(D) (no units) Date Value 12/27/2018 A NEGATIVE Antibody Screen (no units) Date Value 06/12/2024 Negative 05/08/2019 NEG Nena Leiva is RH Negative Rhophylac was given without incident. See immunizations for details of immunizations administered today. Provider Lauren Madera CNP was present in office at time of injection Nena Leiva was given her Rhophylac pocket card. Kristen Chang RN documented in this encounter [facility] 10-15-2024 Progress note Formatting of t his note might be different from the original. .EH - S: Nena is a 34 year old female who presents at 28w0d for a routine visit. Feeling movement. Denies headache, visual changes, chest pain, shortness of breath, vaginal bleeding, leakage of fluid, or dysuria. Feeling well, no complaints. O: See flow sheet Gen: No apparent distress Abd: Gravid, nontender ASSESSMENT/PLAN: 1. Supervision of high risk in second trimester (HCC) - ICD9: V23.9, ICD10: O09.92 (primary diagnosis) - Continue PNV and LDA 2. 28 weeks gestation of ([facility]) - ICD9: V22.2, ICD10: Z3A.28 - Growth today, report pending - 1 hour GCT, CBC, and RPR today - Rh negative: Rhogam injection today - Declines TDAP - LARC form reviewed and signed. Declines. - Depression screen negative - plan form discussed and given to Nena - Reviewed how to pre register through [facility] 3. Twin with single intrauterine , first trimester, fetus 1 ([facility]) - ICD9: 651.33, ICD10: O31.21X1 4. AMA (advanced maternal age) multigravida 35+, second trimester ([facility]) - ICD9: 659.63, ICD10: O09.522 - Age 34 at VENICE 5. Obesity affecting in second trimester, unspecified obesity type ([facility]) - ICD9: 649.13, ICD10: O99.212 -Pre BMI 35 - Plan for 32 week growth q 4 weeks. - Weekly NSTs at 36 weeks. Hypothyroidism affecting in second trimester ([facility]) - ICD9: 648.13, 244.9, ICD10: O99.282, E03.9 - Managed by PCP - Continue 120 mg of LABORER ORCHARD Thryoid - Recheck today Rh negative state in antepartum period ([facility]) - ICD9: 646.83, ICD10: O26.899, Z67.91 - Rhogam today PTL precautions and kick counts reviewed. RTO in 2 weeks or sooner as needed. Lauren Madera APRN.CLINICAL THERAPIST [facility] 10-15-2024 Miscellaneous Notes .EH - S: Nena is a 34 year old female who presents at 28w0d for a routine visit. Feeling movement. Denies headache, visual changes, chest pain, shortness of breath, vaginal bleeding, leakage of fluid, or dysuria. Feeling well, no complaints. O: See flow sheet Gen: No apparent distress Abd: Gravid, nontender ASSESSMENT/PLAN: 1. Supervision of high risk in second trimester ([facility]) - ICD9: V23.9, ICD10: O09.92 (primary diagnosis) - Continue PNV and LDA 2. 28 weeks gestation of ([facility]) - ICD9: V22.2, ICD10: Z3A.28 - Growth today, report pending - 1 hour GCT, CBC, and RPR today - Rh negative: Rhogam injection today - Declines TDAP - LARC form reviewed and signed. Declines. - Depression screen negative - plan form discussed and given to Ali - Reviewed how to pre register through [facility] 3. Twin with single intrauterine , first trimester, fetus 1 ([facility]) - ICD9: 651.33, ICD10: O31.21X1 4. AMA (advanced maternal age) multigravida 35+, second trimester ([facility]) - ICD9: 659.63, ICD10: O09.522 - Age 34 at VENICE 5. Obesity affecting in second trimester, unspecified obesity type ([facility]) - ICD9: 649.13, ICD10: O99.212 -Pre BMI 35 - Plan for 32 week growth q 4 weeks. - Weekly NSTs at 36 weeks. Hypothyroidism affecting in second trimester ([facility]) - ICD9: 648.13, 244.9, ICD10: O99.282, E03.9 - Managed by PCP - Continue 120 mg of LABORER ORCHARD Thryoid - Recheck today Rh negative state in antepartum period ([facility]) - ICD9: 646.83, ICD10: O26.899, Z67.91 - Rhogam today PTL precautions and kick counts reviewed. RTO in 2 weeks or sooner as needed. Lauren Madera APRN.CLINICAL THERAPIST documented in this encounter [facility] 10-15-2024 Instructions Antelmo Sumner MA - 10/15/2024 2:27 PM EDT SEQUENTIAL SCREENINGS The [facility] offers sequential screenings for women who are interested in screenings for chromosomal abnormalities and certain defects during a . The sequential screen combines ultrasound and blood tests to determine the risk of chromosomal abnormalities, including Down's Syndrome (Trisomy 21) and Trisomy 18, as well as open neural tube defects including spina bifida. Ultrasound examination is performed between 11 weeks and 13 weeks gestational age. Blood tests are drawn after the ultrasound and again later in the between 15 and 21 weeks gestational age. Please let your physician know if you are interested in this testing. It will require an appointment with our technician helper instrument. This is not an ultrasound performed by a physician in our office during a routine visit. SIGNS AND SYMPTOMS OF LABOR 1. Contractions every 10 minutes or more often 2. Clear, pink, or brownish fluid (water) leaking from vagina 3. Feeling that baby is pushing down, pressure 4. Low, dull backache 5. Cramps that feel like a period 6. Cramps with or without diarrhea If you notice any of the above symptoms, contact our office at [phone] and ask to speak with a nurse. After hours, you can call doctors registry at [phone] OR call [facility] at [phone] and ask to have the doctor systems development consultant paged. If you consider this an emergency, dial 91 or go to your nearest emergency department. NEED HELP? Are you dealing with a violent or abusive relationship? Are you a victim of rape or sexual assult? Call [facility] ([place]) 24 hour Crisis Hotline: 626.289.8856 or 138-248-7396. MANUAL Your Guide to a Healthy manual is now on-line. Visit [email or web address] ncyGuide to download your free copy documented in this encounter [facility] 10-14-2024 Telephone encounter Note Patient has been identified by name and date of : Patient phones for refill(s): Requested Prescriptions Pending Prescriptions Disp Refills thyroid ([facility]OR[facility]CHARD THYROID) 120 mg tablet Sig: Take 1 tablet PO 3 days a week and 2 tablets PO 4 days a week Date of last office visit in primary care: 08/23/2024 Date of next office visit in primary care: Visit date not found Please advise. Thank you. Lisa León LPN. [facility] Work Phone: 10-14-2024 Miscellaneous Notes Patient has been identified by name and date of : Patient phones for refill(s): Requested Prescriptions Pending Prescriptions Disp Refills thyroid (LABORER ORCHARD THYROID) 120 mg tablet Sig: Take 1 tablet PO 3 days a week and 2 tablets PO 4 days a week Date of last office visit in primary care: 08/23/2024 Date of next office visit in primary care: Visit date not found Please advise. Thank you. Lisa León LPN. documented in this encounter [facility] 08-25-2024 Progress note Formatting of t his note might be different from the original. SW- pt doing well. No pain, vb, lof PE: Gen- NAD, well appearing See flowsheet A/p 20 wk gestation - Anatomy US today and final report pending - Thyroid labs today - Cont LDA - RTO 4 wks Joe Boyce DO [facility] 08-25-2024 Miscellaneous Notes SW- pt doing well. No pain, vb, lof PE: Gen- NAD, well appearing See flowsheet A/p 20 wk gestation - Anatomy US today and final report pending - Thyroid labs today - Cont LDA - RTO 4 wks Joe Boyce DO documented in this encounter [facility] 08-23-2024 Note HNO ID: [id number] Author: MIGUELITO CHAMPION, DO Service: ? Author Type: Physician Type: Progress Notes Filed: 08/23/2024 10:40 Note Text: CC: Nena Leiva is a 34 year old female who presents to the office for physical HPI: Overall she is doing well She is with a baby girl and due in 20 weeks, she is 20 weeks 3 days and managed by OBGYN in [place]. She has had 3 other successful vaginal births-1 davies, 1 set of twins. She is taking her vitamins at this time. Hypothyroidism, she is taking 120 mg of LABORER ORCHARD thyroid 4 days a week and 240 mg 3 days a week, wiling to change dose if needed, just had labs completed this week TSH Date Value Ref Range Status 08/22/2024 2.580 0.270 - 4.200 mIU/L Final Comment: If the patient is , TSH reference range varies by gestational period: First Trimester (weeks 9-12): 0.180-2.990 mIU/L Second Trimester: 0.110-3.980 mIU/L Third Trimester: 0.480-4.710 mIU/L Homer Caputo et al. A Practical Approach for the Verifications and Determination of Site- and Trimester-Specific Reference Intervals for Thyroid Function tests in . Thyroid, 2019:29:3:412-420. Moose Lopez, et al. 2017 Guidelines of the [place] Thyroid Association for the Diagnosis and Management of Thyroid Disease during and the . Thyroid, 2017:27:3:315-389. 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 Rh negative state in antepartum period (HCC) 11/07/2013 Vitamin D deficiency PAST SURGICAL HISTORY Procedure Laterality Date DILATION AND CURETTAGE DXAND/THER NONOBSTETRIC 03/28/2018 Dilation AND curettage PAST SURGICAL HISTORY OF 05/22 extraction of wisdom teeth Social History: Social History Tobacco Use Smoking status: Never Smokeless tobacco: Never Vaping Use Vaping status: Never Used Substance Use Topics Alcohol use: No Drug use: No FAMILY HISTORY Problem Relation Age of Onset Thyroid Mother Cervical Cancer Mother Asthma Mother other (fibromyalgia) Mother No Known Problems Father No Known Problems Sister No Known Problems Sister No Known Problems Sister No Known Problems Brother No Known Problems Brother No Known Problems Brother No Known Problems Brother No Known Problems Brother Diabetes Brother diagnosed at age 19 Hyperlipidemia Maternal Grandmother Hypertension Maternal Grandmother Prostate Cancer Maternal Grandfather other (htn) Maternal Grandfather other (hypercholesteremia) Maternal Grandfather Breast Cancer Paternal Grandmother Hyperlipidemia Paternal Grandmother Asthma Brother Asthma Brother Allergies Son Asthma Son other (Eczema) Son Current Outpatient prescriptions: aspirin, enteric coated (ECOTRIN LOW STRENGTH) 81 mg EC tablet Take 1 tablet by mouth once daily. PNV no.95/ferrous fum/folic ac ( ORAL) Take 2 capsules by mouth once daily. Magnesium Oxide 500 mg magnesium tab Take 500 mg by mouth once daily. L.acid,para-B.bifidum-S.therm (QUAD-PROBIOTIC) 8 billion cell cap Take by mouth once daily. cetirizine (ZYRTEC) 10 mg tablet thyroid (LABORER ORCHARD THYROID) 120 mg tablet Take 1 tablet PO 3 days a week and 2 tablets PO 4 days a week Allergies: ALLERGIES Allergen Reactions Bees Swelling Latex Hives ROS: See HPI PE: 08/23/24 0841 BP: 106/67 BP Site: Left Arm BP Position: Sitting BP Cuff Size: Regular Adult Pulse: 85 Temp: 36.7 ?C (98 ?F) SpO2: 97% Weight: 103.1 kg (227 lb 3.2 oz) Height: 166 cm (5' 5.35") Gen: AANDO, NAD, non-toxic appearing, Pleasant, cooperative HEENT: NT/AC, PERRLA, EOMs intact b/l, nares clear and patent b/l, pharynx without erythema, exudate or lesions. Uvula midline. EACs without erythema or debris. TMs pearly trujillo with intact landmarks b/l. Neck: supple, No cervical LAD, no thyromegaly, no carotid bruits CV: RRR, normal S1 and S2, no murmurs, no gallops, no rubs, Pulses 2+ and symmetric in UE and LE b/l Lungs: normal respiratory effort, CTA b/l, no wheezing or rhonchi or rales Abd: soft, NT, ND, +BS, no hepatosplenomegaly MS: FROM all 4 extremities Neuro: CN II-XII intact b/l, strength 5/5 b/l UE and LE, DTRs 2/4 UE and LE, sensation intact. Skin: warm, dry, intact, No rashes or lesions on exposed skin. No edema, normal pulses Gravid uterus on examination, no pain ASSESSMENT/PLAN: 1. Wellness examination - ICD9: V70.0, ICD10: Z00.00 (primary diagnosis) - Counseled on healthy diet and regular exercise 2. Screening for depression - ICD9: V79.0, ICD10: Z13.31 - DEPRESSION SCREENING 3. Encounter for screening examination for other mental health and behavioral disorders - ICD9: V79.8, ICD10: Z13.39 - ANXIETY SCREENING 4. Acquired hypothyroidism - ICD9: 244.9, ICD10: E03.9 - Instructed patien (more content not included)... [facility] 08-23-2024 History of Present illness Narrative CC: Nena Leiva is a 34 year old female who presents to the office for physical HPI: Overall she is doing well She is with a baby girl and due in 20 weeks, she is 20 weeks 3 days and managed by OBGYN in [place]. She has had 3 other successful vaginal births-1 davies, 1 set of twins. She is taking her vitamins at this time. Hypothyroidism, she is taking 120 mg of LABORER ORCHARD thyroid 4 days a week and 240 mg 3 days a week, wiling to change dose if needed, just had labs completed this week TSH Date Value Ref Range Status 08/22/2024 2.580 0.270 - 4.200 mIU/L Final Comment: If the patient is , TSH reference range varies by gestational period: First Trimester (weeks 9-12): 0.180-2.990 mIU/L Second Trimester: 0.110-3.980 mIU/L Third Trimester: 0.480-4.710 mIU/L Homer Caputo et al. A Practical Approach for the Verifications and Determination of Site- and Trimester-Specific Reference Intervals for Thyroid Function tests in . Thyroid, 2019:29:3:412-420. Moose E, et al. 2017 Guidelines of the [place] Thyroid Association for the Diagnosis and Management of Thyroid Disease during and the . Thyroid, 2017:27:3:315-389. 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 Rh negative state in antepartum period (HCC) 11/07/2013 Vitamin D deficiency PAST SURGICAL HISTORY Procedure Laterality Date DILATION & CURETTAGE DX&/THER NONOBSTETRIC 03/28/2018 Dilation & curettage PAST SURGICAL HISTORY OF 10 extraction of wisdom teeth Social History: Social History Tobacco Use Smoking status: Never Smokeless tobacco: Never Vaping Use Vaping status: Never Used Substance Use Topics Alcohol use: No Drug use: No FAMILY HISTORY Problem Relation Age of Onset Thyroid Mother Cervical Cancer Mother Asthma Mother other (fibromyalgia) Mother No Known Problems Father No Known Problems Sister No Known Problems Sister No Known Problems Sister No Known Problems Brother No Known Problems Brother No Known Problems Brother No Known Problems Brother No Known Problems Brother Diabetes Brother diagnosed at age 19 Hyperlipidemia Maternal Grandmother Hypertension Maternal Grandmother Prostate Cancer Maternal Grandfather other (htn) Maternal Grandfather other (hypercholesteremia) Maternal Grandfather Breast Cancer Paternal Grandmother Hyperlipidemia Paternal Grandmother Asthma Brother Asthma Brother Allergies Son Asthma Son other (Eczema) Son Current Outpatient prescriptions: aspirin, enteric coated (ECOTRIN LOW STRENGTH) 81 mg EC tablet Take 1 tablet by mouth once daily. PNV no.95/ferrous fum/folic ac ( ORAL) Take 2 capsules by mouth once daily. Magnesium Oxide 500 mg magnesium tab Take 500 mg by mouth once daily. L.acid,para-B.bifidum-S.therm (QUAD-PROBIOTIC) 8 billion cell cap Take by mouth once daily. cetirizine (ZYRTEC) 10 mg tablet thyroid (LABORER ORCHARD THYROID) 120 mg tablet Take 1 tablet PO 3 days a week and 2 tablets PO 4 days a week Allergies: ALLERGIES Allergen Reactions Bees Swelling Latex Hives ROS: See HPI PE: 08/23/24 0841 BP: 106/67 BP Site: Left Arm BP Position: Sitting BP Cuff Size: Regular Adult Pulse: 85 Temp: 36.7 C (98 F) SpO2: 97% Weight: 103.1 kg (227 lb 3.2 oz) Height: 166 cm (5' 5.35") Gen: A&O, NAD, non-toxic appearing, Pleasant, cooperative HEENT: NT/AC, PERRLA, EOMs intact b/l, nares clear and patent b/l, pharynx without erythema, exudate or lesions. Uvula midline. EACs without erythema or debris. TMs pearly trujillo with intact landmarks b/l. Neck: supple, No cervical LAD, no thyromegaly, no carotid bruits CV: RRR, normal S1 and S2, no murmurs, no gallops, no rubs, Pulses 2+ and symmetric in UE and LE b/l Lungs: normal respiratory effort, CTA b/l, no wheezing or rhonchi or rales Abd: soft, NT, ND, +BS, no hepatosplenomegaly MS: FROM all 4 extremities Neuro: CN II-XII intact b/l, strength 5/5 b/l UE and LE, DTRs 2/4 UE and LE, sensation intact. Skin: warm, dry, intact, No rashes or lesions on exposed skin. No edema, normal pulses Gravid uterus on examination, no pain ASSESSMENT/PLAN: 1. Wellness examination - ICD9: V70.0, ICD10: Z00.00 (primary diagnosis) - Counseled on healthy diet and regular exercise 2. Screening for depression - ICD9: V79.0, ICD10: Z13.31 - DEPRESSION SCREENING 3. Encounter for screening examination for other mental health and behavioral disorders - ICD9: V79.8, ICD10: Z13.39 - ANXIETY SCREENING 4. Acquired hypothyroidism - ICD9: 244.9, ICD10: E03.9 - Instructed patient on importance of taking on an empty stomach either first thing in the morning or at bedtime. Increase LABORER ORCHARD thyroid to 240 mg 4 days a week and 120 mg 3 days a week, recheck labs in 6 weeks 5. 20 weeks gestation of (HCC) - ICD9: V22.2, ICD10: Z3A.20 Managed by OBGYN She is doing well overall by what she states Miguelito Champion DO To ER if develops chest pain, shortness of breath, or severe worsening of symptoms. Discussed risks, benefits, alternatives, and potential side effects of medications. Patient expressed understanding and agreed with the plan. Miguelito Champion DO [address] [place] [address] documented in this encounter [facility] 08-22-2024 Instructions Tasha Carias MA - 08/22/2024 3:45 PM EDT SEQUENTIAL SCREENINGS The [facility] offers sequential screenings for women who are interested in screenings for chromosomal abnormalities and certain defects during a . The sequential screen combines ultrasound and blood tests to determine the risk of chromosomal abnormalities, including Down's Syndrome (Trisomy 21) and Trisomy 18, as well as open neural tube defects including spina bifida. Ultrasound examination is performed between 11 weeks and 13 weeks gestational age. Blood tests are drawn after the ultrasound and again later in the between 15 and 21 weeks gestational age. Please let your physician know if you are interested in this testing. It will require an appointment with our technician helper instrument. This is not an ultrasound performed by a physician in our office during a routine visit. SIGNS AND SYMPTOMS OF LABOR 1. Contractions every 10 minutes or more often 2. Clear, pink, or brownish fluid (water) leaking from vagina 3. Feeling that baby is pushing down, pressure 4. Low, dull backache 5. Cramps that feel like a period 6. Cramps with or without diarrhea If you notice any of the above symptoms, contact our office at [phone] and ask to speak with a nurse. After hours, you can call doctors registry at [phone] OR call [facility] at [phone] and ask to have the doctor systems development consultant paged. If you consider this an emergency, dial 9-1-4 or go to your nearest emergency department. NEED HELP? Are you dealing with a violent or abusive relationship? Are you a victim of rape or sexual assult? Call [facility] ([facility] 24 hour Crisis Hotline: 993.132.4395 or 296-374-0715. MANUAL Your Guide to a Healthy manual is now on-line. Visit [email or web address] to download your free copy documented in this encounter [facility] 07-25-2024 Progress note Formatting of t his note might be different from the original. TINO-S: Nena Leiva is a 34 year old female who presents at 16w2d with VENICE:01/07/2025, by Last Menstrual Period for a routine visit. Denies headache, visual changes, chest pain, shortness of breath, vaginal bleeding, leakage of fluid, or dysuria. Feeling well, no complaints. O: See flow sheet Gen: No apparent distress Abd: Gravid, nontender ASSESSMENT/PLAN: 1. Supervision of high risk in second trimester -PN labs reviewed -NIPT completed -Anatomy US next visit 2. 16 weeks gestation of 3. Twin with single intrauterine , first trimester, fetus 1 4. Obesity affecting in second trimester, unspecified obesity type -Pregravid BMi 35 -Growth US every 4wk starting at 32 weeks -NSTs starting at 32 weeks 5. AMA (advanced maternal age) multigravida 35+, second trimester -35 at delivery, no additional testing 6. Hypothyroidism affecting in second trimester -Recommend repeating thyroid studies next visit PTL precautions reviewed and when to call RTO in 4 weeks Denae Renteria APRN.CNM [facility] Work Phone: 07-25-2024 Miscellaneous Notes TINO-S: Nena Leiva is a 34 year old female who presents at 16w2d with VENICE:01/07/2025, by Last Menstrual Period for a routine visit. Denies headache, visual changes, chest pain, shortness of breath, vaginal bleeding, leakage of fluid, or dysuria. Feeling well, no complaints. O: See flow sheet Gen: No apparent distress Abd: Gravid, nontender ASSESSMENT/PLAN: 1. Supervision of high risk in second trimester -PN labs reviewed -NIPT completed -Anatomy US next visit 2. 16 weeks gestation of 3. Twin with single intrauterine , first trimester, fetus 1 4. Obesity affecting in second trimester, unspecified obesity type -Pregravid BMi 35 -Growth US every 4wk starting at 32 weeks -NSTs starting at 32 weeks 5. AMA (advanced maternal age) multigravida 35+, second trimester -34 at delivery, no additional testing 6. Hypothyroidism affecting in second trimester -Recommend repeating thyroid studies next visit PTL precautions reviewed and when to call RTO in 4 weeks Denae Renteria APRN.CNM documented in this encounter [facility] 07-25-2024 Instructions Mi Bauer MA - 07/25/2024 11:26 AM EDT SEQUENTIAL SCREENINGS The [facility] offers sequential screenings for women who are interested in screenings for chromosomal abnormalities and certain defects during a . The sequential screen combines ultrasound and blood tests to determine the risk of chromosomal abnormalities, including Down's Syndrome (Trisomy 21) and Trisomy 18, as well as open neural tube defects including spina bifida. Ultrasound examination is performed between 11 weeks and 13 weeks gestational age. Blood tests are drawn after the ultrasound and again later in the between 15 and 21 weeks gestational age. Please let your physician know if you are interested in this testing. It will require an appointment with our technician helper instrument. This is not an ultrasound performed by a physician in our office during a routine visit. SIGNS AND SYMPTOMS OF LABOR 1. Contractions every 10 minutes or more often 2. Clear, pink, or brownish fluid (water) leaking from vagina 3. Feeling that baby is pushing down, pressure 4. Low, dull backache 5. Cramps that feel like a period 6. Cramps with or without diarrhea If you notice any of the above symptoms, contact our office at [phone] and ask to speak with a nurse. After hours, you can call doctors registry at [phone] OR call [facility] at [phone] and ask to have the doctor systems development consultant paged. If you consider this an emergency, dial 9-1-7 or go to your nearest emergency department. NEED HELP? Are you dealing with a violent or abusive relationship? Are you a victim of rape or sexual assult? Call [facility] ([place]) 24 hour Crisis Hotline: 342.224.3238 or 769-902-1595. MANUAL Your Guide to a Healthy manual is now on-line. Visit [email or web address] [email or web address] to download your free copy documented in this encounter [facility] 07-15-2024 Telephone encounter Note Pt. informed via My chart. [facility] Work Phone: 07-15-2024 Miscellaneous Notes Pt. informed via My chart. Please make sure she knows that her thyroid labs are slightly undercorrected. Recommend increasing LABORER ORCHARD thyroid 120 mg to 2 tablets 3 days a week and 1 tablet 4 days a week, recheck labs in 1 month Miguelito Champion DO documented in this encounter [facility] 07-15-2024 Telephone encounter Note Please make sure she knows that her thyroid labs are slightly undercorrected. Recommend increasing LABORER ORCHARD thyroid 120 mg to 2 tablets 3 days a week and 1 tablet 4 days a week, recheck labs in 1 month Miguelito Champion DO [facility] 07-09-2024 Telephone encounter Note You can add her on that is fine. Thanks, Denae Renteria APRN.CNM [facility] Work Phone: 07-09-2024 Miscellaneous Notes You can add her on that is fine. Thanks, Denae Renteria APRN.CNM 14w0d Patient has her 16 week anatomy on 07/25 at 11:00 AM. Would like to have a visit afterwards. Would you OK with seeing her afterwards with your schedule? You are systems development consultant. If not, I can offer her 8:00 AM. I know she has issues with child care sitter. rKisten Chang RN documented in this encounter [facility] 07-09-2024 Telephone encounter Note 14w0d Patient has her 16 week anatomy on 07/25 at 11:00 AM. Would like to have a visit afterwards. Would you OK with seeing her afterwards with your schedule? You are systems development consultant. If not, I can offer her 8:00 AM. I know she has issues with child care sitter. Kristen Chang RN [facility] 07-08-2024 Telephone encounter Note Early anatomy ultrasound scheduled. RuffaloCODYt message sent to patient. Juliana Huston RN [facility] 07-08-2024 Miscellaneous Notes Early anatomy ultrasound scheduled. RuffaloCODYt message sent to patient. Juliana Huston RN 13w2d Patient needs 16 week anatomy. Placed 6/ @ 11 AM on hold. Will need to attach order and officially schedule once order is placed after today's visit with SW. Kristen Chang, RN documented in this encounter [facility] 07-04-2024 Telephone encounter Note 13w2d Patient needs 16 week anatomy. Placed 6 @ 11 AM on hold. Will need to attach order and officially schedule once order is placed after today's visit with SW. Kristen Chang, RN T [facility] 06-05-2024 Note HNO ID: [id number] Author: WILLIE ECHEVERRIA MD Service: ? Author Type: Physician Type: Progress Notes Filed: 06/05/2024 16:08 Note Text: June 05, 2024 3:23 PM Left message voice mail I was trying to reach her regarding her ultrasound remote read of today. Willie Echeverria MD [facility] 06-05-2024 Note HNO ID: [id number] Author: WILLIE ECHEVERRIA MD Service: ? Author Type: Physician Type: Progress Notes Filed: 06/05/2024 16:08 Note Text: The patient presents for requested ultrasound. Full report available in the "Imaging" tab in Epoq. Willie Echeverria MD [facility] 05-26-2024 Telephone encounter Note Pt sends mychart below: Hi Dr Champion, Just letting you know u saw TSH came back high. My ultrasound today showed twins again. I ve been off my injection for 7.5 weeks. Other than that nothing has changed, except being again. I take 2 pills daily, except Saturdays I take 3. That was what I d been on since the last time things were high. Thanks for all your help! I also will likely need an updated prescription sent to [facility]. Thank you so much for everything! [facility] 05-26-2024 Miscellaneous Notes Pt sends mychart below: Jorge Luis Champion, Just letting you know u saw TSH came back high. My ultrasound today showed twins again. I ve been off my injection for 7.5 weeks. Other than that nothing has changed, except being again. I take 2 pills daily, except Saturdays I take 3. That was what I d been on since the last time things were high. Thanks for all your help! I also will likely need an updated prescription sent to [facility]. Thank you so much for everything! documented in this encounter [facility] 05-26-2024 Telephone encounter Note See TE May 26, 2024 [facility] 05-26-2024 Miscellaneous Notes See TE May 26, 2024 documented in this encounter [facility] 05-26-2024 Telephone encounter Note Pt notified of results via TOMODOhart. Glo Smith Ma [facility] 05-26-2024 Miscellaneous Notes Pt notified of results via TOMODOhart. Glo Smith Ma Please give her my congratulations on her ! Please have her increase dose of her thyroid medication as below and recheck labs in 4 weeks after this change Miguelito Champion DO The following approved medication requests have been transmitted electronically. Requested Prescriptions Signed Prescriptions Disp Refills thyroid (LABORER ORCHARD THYROID) 120 mg tablet 140 tablet 3 Sig: Take 1 tablet PO 5 days a week and 2 tablets PO 2 days a week Authorizing Provider: MIGUELITO CHAMPION DO Jorge Luis Champion, Just letting you know u saw TSH came back high. My ultrasound today showed twins again. I ve been off my injection for 7.5 weeks. Other than that nothing has changed, except being again. I take 2 pills daily, except Saturdays I take 3. That was what I d been on since the last time things were high. Thanks for all your help! Nena documented in this encounter [facility] 05-26-2024 Telephone encounter Note Please give her my congratulations on her ! Please have her increase dose of her thyroid medication as below and recheck labs in 4 weeks after this change Miguelito Champion DO The following approved medication requests have been transmitted electronically. Requested Prescriptions Signed Prescriptions Disp Refills thyroid (LABORER ORCHARD THYROID) 120 mg tablet 140 tablet 3 Sig: Take 1 tablet PO 5 days a week and 2 tablets PO 2 days a week Authorizing Provider: MIGUELITO CHAMPION DO [facility] 05-24-2024 Telephone encounter Note Hi Dr Champion, Just letting you know u saw TSH came back high. My ultrasound today showed twins again. I ve been off my injection for 7.5 weeks. Other than that nothing has changed, except being again. I take 2 pills daily, except Saturdays I take 3. That was what I d been on since the last time things were high. Thanks for all your help! Nena [facility] 05-23-2024 Note HNO ID: [id number] Author: ANTELMO SUMNER MA Service: ? Author Type: Control System Manager Type: Progress Notes Filed: 05/23/2024 11:52 Note Text: OB point of care ultrasound was performed. See imaging tab for details. Antelmo Sumner MA [facility] 05-23-2024 History of Present illness Narrative OB point of care ultrasound was performed. See imaging tab for details. Antelmo Sumner MA Patient declined aquatics lifeguard. INITIAL OB ASSESSMENT HPI: Nena is a 34 year old Unavailable Female here to establish Obstetrical Care. Patient's last menstrual period was 04/02/2024. from OB Dating Form. was unplanned but accepted Complaints: No OB History Gravida4 Para2 Term2 Preterm0 AB1 Living3 SAB1 IAB0 Ectopic0 Multiple1 Live Births3 Previous history: Prior : No History of 4th degree laceration: No History of shoulder dystocia: No History of Hypertensive disorders including pre-eclampsia or gestational hypertension: No History of gestational diabetes: No Patient's Risk Screening for delivery: Have you had a prior davies between 20w and 36w6d? No How many pregnancies have you had before? 4 Did you have a previous baby with a GBS Infection? No Please select all that apply for any prior : N/A MEDICAL/PSYCHOSOCIAL HISTORY: History of hemorrhage or bleeding concerns: No Thyroid Disease: Yes History of chronic hypertension: No History of pre-existing diabetes: No ABO/RH(D) Date Value Ref Range Status 12/27/2018 A NEGATIVE Final BMI 35.59 kg/(m^2) Last Pap: 03/29/2018 History of abnormal pap: No Prior treatment for cervical dysplasia: none. Last HPV: History of STDs: N/A Partner History of STDs: None Did you have a partner with Herpes? No Tobacco use: No E-Cigarette/Vaping Use: No Caffeine use: Yes Drug use: No Alcohol use: No Multivitamin with Folic acid: Yes Would refuse blood transfusion if medically necessary: No Social Needs: How often does this describe you? I don't have enough money to pay my bills: Never Within the past 12 months, have you worried that your food would run out before you had money to buy more? Never In the past 12 months, has lack of reliable transportation kept you from going to medical appointments or work, or from getting things needed for daily living? Never In the past 12 months, have you had any concerns about having a place to live, or about the condition or quality of your housing? Never Would you like more information on any of the following (please check all that apply)? Not interested Social History: Do you have any history of depression, anxiety, PTSD, or other mood problems? No Do you have a history of abuse or trauma that may impact your experience? No Are you currently employed? No Depression/Anxiety Screening: denies, admits to symptoms of depression. OB Depression and Anxiety Screening- This Encounter (since 05/22/2024) None Genetic Screening: Partner present: No Patient verbalized knowledge of partner family health history: Yes Do you or your partner have any personal or family history of defects not previously discussed: No Do you have history of a complicated by anomaly, genetic condition, or demise: No Preeclampsia Risk Screening: Screening for prevention of preeclampsia: High risk factors: Multi- gestation Moderate risk ractors: Obesity (body mass index greater than 30) OB Risk Screening: Completed, no positive findings documented. 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 LABORER ORCHARD THYROID 60 mg tablet TAKE 2 TABLETS BY MOUTH EVERY DAY 180 tablet 3 Magnesium Oxide 500 mg magnesium tab Take 500 mg by mouth once daily. L.acid,para-B.bifidum-S.therm (QUAD-PROBIOTIC) 8 billion cell cap Take by mouth once daily. cetirizine (ZYRTEC) 10 mg tablet aspirin, enteric coated (ECOTRIN LOW STRENGTH) 81 mg EC tablet Take 1 tablet by mouth once daily. 90 tablet 3 No current facility-administered medications for this visit. Allergies As of Date: 05/23/2024 Allergen Noted Reaction BEES 07/07/2008 Swelling LATEX 07/07/2008 Hives Fully Assessed 05/23/2024 Does patient have penicillin allergy: No REVIEW OF SYSTEMS: GENERAL: Negative for: Fever or Chills HEENT: Negative for: Headache, Impaired Vision, Ringing in Ears, Nosebleeds NECK: Negative for: Swelling, Pain, Stiffness RESPIRATORY: Negative for: Cough, Shortness of breath, Wheezing GASTROINTESTINAL: Negative for: Heartburn, Constipation, Diarrhea, Blood in stool, Vomiting and Positive for: Nausea MUSCULOSKELETAL: Negative for: Muscle or joint pain, stiffness, Joint swelling NEUROLOGIC/PSYCHIATRIC: Negative for: Weakness, Paralysis, Numbness, Tingling, Tremor, Anxiety, Depression, Memory loss SKIN: Negative for: Rash, Itching GENITOURINARY: Negative for: vaginal itching, vaginal discharge, hematuria or dysuria SENSITIVE EXAM: The sensitive examination was discussed with the Patient or Patient's Authorized Building Serviceman. As applicable, any other physician, advance practice provider, medical student, or other health professional student that will be observing or involved in the sensitive examination for educational or training purposes was discussed with the Patient or Authorized Building Serviceman. The Patient or Authorized Building Serviceman has agreed to proceed with the sensitive examination. (Sensitive examination includes inspection and/or palpation of the breasts, pelvis, prostate and anorectal regions). PHYSICAL EXAM: BP 110/62 Wt 213 lb 9.6 oz (96.9kg) LMP 04/02/2024 GENERAL: pleasant in no apparent distress DERMATOLOGY: Normal, without lesions, non-icteric, and non-hirsute NECK: Supple, full range of motion, no adenopathy, and thyroid normal CHEST: Normal inspiratory effort BREAST: soft, non-tender, symmetric, no dominant mass, normal nipple-areolar complex, no lymphadenopathy, and no nipple discharge ABDOMEN: soft, non-tender, and no masses NEURO: alert and oriented x3,exam grossly non-focal PELVIS: External genitalia normal without lesions. Perineal body intact. No vaginal or cervical lesions. Scant bleeding with exam. Cervix closed. No adnexal masses or tenderness. Clinical Pelvimetry: Pelvimetry clinically assessed as adequate Limited OB ultrasound exam: Twin positive cardiac activity x 2 and POCUS performed. CRL consistent with LMP for twin A (7w2d) Twin B (6w2d) Shiloh Westfall APRN.CLINICAL THERAPIST ASSESSMENT: 34 year old at 7w2d wks gestational age PLAN: 1) Patient oriented to practice. Patient given new OB orientation folder. Discussed nutrition, folic acid supplementation, dietary guidelines, exercise, smoking, alcohol, caffeine, and drug use. Discussed gestational weight gain guidelines. Discussed routine OB labs including STD/HIV. Discussed how to access Your guide to a health and the Research Staff Member. Reviewed midwifery and drop hammer setter up services that are available. 2) Screening: Hemoglobin A1C: ordered Baby Aspirin: The patient has been counseled about the potential benefits of low dose aspirin in and our recommendation that this be offered to all patients, regardless of whether they meet the high risk criteria specified above. She Accepts Aneuploidy Screening: Discussed aneuploidy screening, nuchal translucency/first trimester early anatomy ultrasound and NIPT. The risks/benefits and limitations of NIPT/aneuploidy screening were reviewed including the potential for false negative and false positive results. The availability of genetic counseling was reviewed. Information on aneuploidy screening was provided. The patient chooses to proceed with First trimester early anatomy ultrasound (12-13w6d) and NIPT (10 weeks) Myriad Carrier Screening: Discussed myriad carrier screening. We discussed the availability of professional-society guided carrier screening and reviewed the conditions screened and limitations of screening. The availability of genetic counseling was reviewed. Information on carrier screening was provided. The patient Declines 3) Patient offered option of Virtual Visits. Patient unsure. May consider in future. 4) Obesity (BMI >30), will order early glucose screen or Hemoglobin A1C. Thyroid Disease: TSH ordered by PCP 5) US in 2 wks for Twin Follow up in 4 weeks for Nuchal and OB visit. Bleeding precautions given Shiloh Westfall APRN.CNP documented in this encounter [facility] 05-19-2024 Note HNO ID: [id number] Author: SHILOH WESTFALL APRN.CNP Service: ? 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 INITIAL OB ASSESSMENT HPI: Nena is a 34 year old Unavailable Female here to establish Obstetrical Care. Patient's last menstrual period was 04/02/2024. from OB Dating Form. was unplanned but accepted Complaints: No OB History Gravida4 Para2 Term2 Preterm0 AB1 Living3 SAB1 IAB0 Ectopic0 Multiple1 Live Births3 Previous history: Prior : No History of 4th degree laceration: No History of shoulder dystocia: No History of Hypertensive disorders including pre-eclampsia or gestational hypertension: No History of gestational diabetes: No Patient's Risk Screening for delivery: Have you had a prior davies between 20w and 36w6d? No How many pregnancies have you had before? 4 Did you have a previous baby with a GBS Infection? No Please select all that apply for any prior : N/A MEDICAL/PSYCHOSOCIAL HISTORY: History of hemorrhage or bleeding concerns: No Thyroid Disease: Yes History of chronic hypertension: No History of pre-existing diabetes: No ABO/RH(D) Date Value Ref Range Status 12/27/2018 A NEGATIVE Final BMI 35.59 kg/(m2) Last Pap: 03/29/2018 History of abnormal pap: No Prior treatment for cervical dysplasia: none. Last HPV: History of STDs: N/A Partner History of STDs: None Did you have a partner with Herpes? No Tobacco use: No E-Cigarette/Vaping Use: No Caffeine use: Yes Drug use: No Alcohol use: No Multivitamin with Folic acid: Yes Would refuse blood transfusion if medically necessary: No Social Needs: How often does this describe you? I don't have enough money to pay my bills: Never Within the past 12 months, have you worried that your food would run out before you had money to buy more? Never In the past 12 months, has lack of reliable transportation kept you from going to medical appointments or work, or from getting things needed for daily living? Never In the past 12 months, have you had any concerns about having a place to live, or about the condition or quality of your housing? Never Would you like more information on any of the following (please check all that apply)? Not interested Social History: Do you have any history of depression, anxiety, PTSD, or other mood problems? No Do you have a history of abuse or trauma that may impact your experience? No Are you currently employed? No Depression/Anxiety Screening: denies, admits to symptoms of depression. OB Depression and Anxiety Screening- This Encounter (since 05/22/2024) None Genetic Screening: Partner present: No Patient verbalized knowledge of partner family health history: Yes Do you or your partner have any personal or family history of defects not previously discussed: No Do you have history of a complicated by anomaly, genetic condition, or demise: No Preeclampsia Risk Screening: Screening for prevention of preeclampsia: High risk factors: Multi- gestation Moderate risk ractors: Obesity (body mass index greater than 30) OB Risk Screening: Completed, no positive findings documented. 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 LABORER ORCHARD THYROID 60 mg tablet TAKE 2 TABLETS BY MOUTH EVERY DAY 180 tablet 3 Magnesium Oxide 500 mg magnesium tab Take 500 mg by mouth once daily. L.acid,para-B.bifidum-S.therm (QUAD-PROBIOTIC) 8 billion cell cap Take by mouth once daily. cetirizine (ZYRTEC) 10 mg tablet aspirin, enteric coated (ECOTRIN LOW STRENGTH) 81 mg EC tablet Take 1 tablet by mouth once daily. 90 tablet 3 No current facility-administered medications for this visit. Allergies As of Date: 05/23/2024 Allergen Noted Reaction BEES 07/07/2008 Swelling LATEX 07/07/2008 Hives Fully Assessed 05/23/2024 Does patient have penicillin allergy: No REVIEW OF SYSTEMS: GENERAL: Negative for: Fever or Chills HEENT: Negative for: Headache, Impaired Vision, Ringing in Ears, Nosebleeds NECK: Negative for: Swelling, Pain, Stiffness RESPIRATORY: Negative for: Cough, Shortness of breath, Wheezing GASTROINTESTINAL: Negative for: Heartburn, Constipa (more content not included)... [facility] 05-19-2024 Instructions Almita Sawyer LPN - 05/19/2024 3:37 PM EDT Please select the following link to access the [facility] Your Guide to a Healthy . [email or web address] Please select the following link to access the [facility] Your Guide to a Healthy . [email or web address] documented in this encounter [facility] 05-05-2024 Telephone encounter Note Pt. informed via My Chart. [facility] Work Phone: 05-05-2024 Miscellaneous Notes Pt. informed via My Chart. Order placed for thyroid labs Please let her know congratulations!!! Miguelito Champion DO Patient just found out she is . About 5 weeks along. When should she check TSH? She did stop the tirzepatide as soon as she found out she was . documented in this encounter [facility] 05-05-2024 Telephone encounter Note Order placed for thyroid labs Please let her know congratulations!!! Miguelito Champion DO [facility] 05-05-2024 Telephone encounter Note Patient notified and declines to schedule an appointment at this time. Patient states she will just wait to be seen on 05/23. Will call if she changes her mind and would like appointment to have HCG levels done. Juliana Huston RN [facility] 05-05-2024 Miscellaneous Notes Patient notified and declines to schedule an appointment at this time. Patient states she will just wait to be seen on 05/23. Will call if she changes her mind and would like appointment to have HCG levels done. Juliana Huston RN Please have patient make an appointment to review. Can be a virtual this week so we can make sure appropriate follow up as well. Thank you, Denae Renteria APRN.CNM LMP 4 Approximately 4w5d Patient has a hx of missed AB and partial molar . Denies cramping or bleeding. Asking for HCG levels for piece of mind. NOB is 05/23/24. Kristen Chang RN documented in this encounter [facility] 05-05-2024 Telephone encounter Note Please have patient make an appointment to review. Can be a virtual this week so we can make sure appropriate follow up as well. Thank you, Denae Renteria APRN.CNM [facility] Work Phone: 05-05-2024 Telephone encounter Note LMP 4 Approximately 4w5d Patient has a hx of missed AB and partial molar . Denies cramping or bleeding. Asking for HCG levels for piece of mind. NOB is 05/23/24. Kristen Chang RN [facility] 05-05-2024 Telephone encounter Note Patient just found out she is . About 5 weeks along. When should she check TSH? She did stop the tirzepatide as soon as she found out she was . [facility] 04-23-2024 Telephone encounter Note Patient has been identified by name and date of : Patient phones for refill(s): Requested Prescriptions Pending Prescriptions Disp Refills tirzepatide (MOUNJARO) 10 mg/0.5 mL pen injector 3 mL 3 Sig: Inject 10 mg subcutaneously one time a week. Date of last office visit in primary care: 07/20/2023 Date of next office visit in primary care: Visit date not found Please advise. Thank you. Lisa León LPN. [facility] Work Phone: 04-23-2024 Miscellaneous Notes Patient has been identified by name and date of : Patient phones for refill(s): Requested Prescriptions Pending Prescriptions Disp Refills tirzepatide (MOUNJARO) 10 mg/0.5 mL pen injector 3 mL 3 Sig: Inject 10 mg subcutaneously one time a week. Date of last office visit in primary care: 07/20/2023 Date of next office visit in primary care: Visit date not found Please advise. Thank you. Lisa León LPN. documented in this encounter [facility] 04-14-2024 Telephone encounter Note See update from pt regarding thyroid dosage. Is requesting refill to be sent to Mail order, this has been pended. Update pt via [employer] once this has been sent. Romina Wells MA [facility] 04-14-2024 Miscellaneous Notes See update from pt regarding thyroid dosage. Is requesting refill to be sent to Mail order, this has been pended. Update pt via [employer] once this has been sent. Romina Wells MA Sent pt mychart message notifying her we've attempted to reach her by phone with messages left requesting a call back. Sent mychart message with results and recommendations below from Provider. Asked pt to update office with how she would like to proceed. Wait pt response. Romina Wells MA Left a message for pt to call the office and ask to speak to a nurse. Renetta Sawyer LPN Lft message to return call. Please call patient and let her know that thyroid labs are improved. TSH is now WNL. However, there is still room to improve this, especially with T3 low now. See how patient is feeling and if symptomatic still. IF so, we can increase dosage of medication just slightly. Thank you, Karen Azar APRN.CLINICAL THERAPIST documented in this encounter [facility] 04-14-2024 Progress note Formatting of t his note might be different from the original. Sent pt mychart message notifying her we've attempted to reach her by phone with messages left requesting a call back. Sent mychart message with results and recommendations below from Provider. Asked pt to update office with how she would like to proceed. Wait pt response. Romina Wells MA [facility] 04-08-2024 Telephone encounter Note Left a message for pt to call the office and ask to speak to a nurse. Renetta Sawyer LPN [facility] 04-07-2024 Telephone encounter Note Lft message to return call. [facility] 04-07-2024 Telephone encounter Note Please call patient and let her know that thyroid labs are improved. TSH is now WNL. However, there is still room to improve this, especially with T3 low now. See how patient is feeling and if symptomatic still. IF so, we can increase dosage of medication just slightly. Thank you, Karen Azar APRN.CLINICAL THERAPIST [facility] 03-19-2024 Telephone encounter Note Pt. informed via My Chart [facility] Work Phone: 03-19-2024 Miscellaneous Notes Pt. informed via My Chart I am not aware of any of this information with the compounding pharmacy Recommend that she calls and asks the pharmacy specifically any questions Miguelito Champion DO Please see message from patients My Chart below. Hi Dr Champion, I just saw that the FDA was changing the availability of tirzepatide to be compounded starting in April. I m assuming that will affect my current prescription and I was wondering what we could do going forward? I really don t want to go off of it but I m not sure if my insurance would even cover Zepbound for me. As of this morning I am down to 206.6 and on 04/04/23, the first day I started on the compounded dose I was 249.4. As you know I didn t change anything to my normal routine other than adding this in since I was already lifting 4-5 days a week, walking 8-10k steps daily, tracking macros and prioritizing sleep(and I continue to do them all as well). I feel the best I ve felt post children. Stronger, confident, happy. The thought of going off and regressing actually makes me sick. Any insight would be helpful. I think I do still have one more refill [facility] I will be able to cigar packer and picker for the month of March. Thank you for all you do! Ali" documented in this encounter [facility] 03-18-2024 Telephone encounter Note I am not aware of any of this information with the [facility] Recommend that she calls and asks the pharmacy specifically any questions Miguelito Champion DO [facility] 03-11-2024 Telephone encounter Note Please see message from patients My Chart below. Hi Dr Champion, I just saw that the FDA was changing the availability of tirzepatide to be compounded starting in April. I m assuming that will affect my current prescription and I was wondering what we could do going forward? I really don t want to go off of it but I m not sure if my insurance would even cover Zepbound for me. As of this morning I am down to 206.6 and on 04/04/23, the first day I started on the compounded dose I was 249.4. As you know I didn t change anything to my normal routine other than adding this in since I was already lifting 4-5 days a week, walking 8-10k steps daily, tracking macros and prioritizing sleep(and I continue to do them all as well). I feel the best I ve felt post children. Stronger, confident, happy. The thought of going off and regressing actually makes me sick. Any insight would be helpful. I think I do still have one more refill at the [facility] I will be able to cigar packer and picker for the month of March. Thank you for all you do! Ali" [facility] 03-11-2024 Telephone encounter Note Transitioned to TE per provider preference. SHON Chavez [facility] 03-11-2024 Miscellaneous Notes Transitioned to TE per provider preference. SHON Chavez documented in this encounter [facility] 02-18-2024 Telephone encounter Note Pt notified of results via [employer]. Glo Smith Ma [facility] 02-18-2024 Miscellaneous Notes Pt notified of results via [employer]. Glo Smith Ma Left message to return call. Go ahead and increase to 2.5 tablets 1-2 days per week. And let me know in 4-6 weeks how you are feeling. We can repeat labs then. Thank you, Karen Azar APRN.CLINICAL THERAPIST Please see pt message - I would say overall I feel better than a few months ago but I have noticed hair loss, feeling some fatigue and a lower sex drive than what I would consider normal for me. I wouldn t be opposed to slightly changing things around to see if that improves? Thanks! Nena Pt informed via message Crystal Giraldo MA Please call patient and let her know that thyroid labs are greatly improved from 2 months ago. T3 and T4 are normal, however TSH is still slightly elevated. No change in regimen unless pt is symptomatic. Please see how she is feeling. Thank you, Karen Azar APRN.CNP documented in this encounter [facility] 02-15-2024 Telephone encounter Note Left message to return call. [facility] 02-15-2024 Telephone encounter Note Go ahead and increase to 2.5 tablets 1-2 days per week. And let me know in 4-6 weeks how you are feeling. We can repeat labs then. Thank you, Karen Azar APRN.CLINICAL THERAPIST [facility] 02-14-2024 Telephone encounter Note Please see pt message - I would say overall I feel better than a few months ago but I have noticed hair loss, feeling some fatigue and a lower sex drive than what I would consider normal for me. I wouldn t be opposed to slightly changing things around to see if that improves? Thanks! Nena [facility] 02-14-2024 Telephone encounter Note Pt informed via message Crystal Giraldo MA [facility] 02-14-2024 Telephone encounter Note Please call patient and let her know that thyroid labs are greatly improved from 2 months ago. T3 and T4 are normal, however TSH is still slightly elevated. No change in regimen unless pt is symptomatic. Please see how she is feeling. Thank you, Karen Azar APRN.CLINICAL THERAPIST [facility] 01-16-2024 Telephone encounter Note Turned into TE Crystal Giraldo MA [facility] 01-16-2024 Miscellaneous Notes Turned into TE Crystal Giraldo MA documented in this encounter [facility] 12-20-2023 Telephone encounter Note Left a detailed message that prescription was sent to the pharmacy and the dose was increased. Renetta Sawyer LPN [facility] 12-20-2023 Miscellaneous Notes Left a detailed message that prescription was sent to the pharmacy and the dose was increased. Renetta Sawyer LPN Okay to increase dose as below rx sent to pharmacy Miguelito Champion, DO The following approved medication requests have been transmitted electronically. Requested Prescriptions Signed Prescriptions Disp Refills tirzepatide (MOUNJARO) 10 mg/0.5 mL pen injector 3 mL 3 Sig: Inject 10 mg subcutaneously one time a week. Authorizing Provider: MIGUELITO CHAMPION DO Patient sent message check on status Any updates on the new script being sent over? I m using the last of what I have today and the pharmacy has no refills on file. I typically pick it up on Tuesdays and then take it on Wednesdays. I haven t missed a weekly dose since starting in March. Thanks! re there lab orders in for when you d like me to recheck thyroid levels? Also, I will need a new script for the tirzepatide [facility] in [place]. I have probably enough for one more week on the 7.5 mg dose. Scale still not changing (ranging 214-216 since 10/10/23) but I can wait to increase the dose if that s what you prefer since I ve only been back on the increased dose of LABORER ORCHARD thyroid for about 3 weeks now. Just let me know! Thanks! Ali documented in this encounter [facility] 12-19-2023 Telephone encounter Note Okay to increase dose as below rx sent to pharmacy iMguelito Champion DO The following approved medication requests have been transmitted electronically. Requested Prescriptions Signed Prescriptions Disp Refills tirzepatide (MOUNJARO) 10 mg/0.5 mL pen injector 3 mL 3 Sig: Inject 10 mg subcutaneously one time a week. Authorizing Provider: MIGUELITO CHAMPION DO [facility] 12-19-2023 Telephone encounter Note Patient sent message check on status Any updates on the new script being sent over? I m using the last of what I have today and the pharmacy has no refills on file. I typically pick it up on Tuesdays and then take it on Wednesdays. I haven t missed a weekly dose since starting in March. Thanks! [facility] 12-12-2023 Telephone encounter Note re there lab orders in for when you d like me to recheck thyroid levels? Also, I will need a new script for the tirzepatide sent to [facility] in [place]. I have probably enough for one more week on the 7.5 mg dose. Scale still not changing (ranging 214-216 since 10/10/23) but I can wait to increase the dose if that s what you prefer since I ve only been back on the increased dose of LABORER ORCHARD thyroid for about 3 weeks now. Just let me know! Thanks! Ali [facility] Work Phone: 12-12-2023 Telephone encounter Note See telephone note. [facility] Work Phone: 12-12-2023 Miscellaneous Notes See telephone note. documented in this encounter [facility] 11-23-2023 Telephone encounter Note MC message read 12:11pm on 11/21. Crystal Giraldo MA [facility] 11-23-2023 Miscellaneous Notes MC message read 12:11pm on 11/21. Crystal Giraldo MA Phoned patient left message to return call and ask to speak to a nurse for results. Also sent message on her my chart with results below. Please have her increase her LABORER ORCHARD thyroid to take 2 tablets (120 mg) every day in the AM. Lets wait for 1-2 months to see if this helps her weight loss before increasing the GLP1 agonist for weight loss Miguelito Champion DO Please see patient message I saw the thyroid labs came back high. I have been taking 2 tabs M-F and 1 tab Sat & Sun. I wait 30 minutes before eating or drinking anything besides water. The only thing I ve noticed is definitely a weight loss stall and maybe more fatigue than normal. I ve been stuck around 215 since 10/10/23. It s the first real stall I ve had since starting tirzepatide so I m not sure if my dose should be increased for that as well? Or just get the thyroid dose sorted out first and go from there? Still no negative symptoms whatsoever on it so just let me know! Thank you! Ali documented in this encounter [facility] 11-22-2023 Telephone encounter Note Phoned patient left message to return call and ask to speak to a nurse for results. Also sent message on her my chart with results below. [facility] 11-21-2023 Telephone encounter Note Please have her increase her LABORER ORCHARD thyroid to take 2 tablets (120 mg) every day in the AM. Lets wait for 1-2 months to see if this helps her weight loss before increasing the GLP1 agonist for weight loss Miguelito Champion DO [facility] 11-21-2023 Telephone encounter Note Please see patient message I saw the thyroid labs came back high. I have been taking 2 tabs M-F and 1 tab Sat & Sun. I wait 30 minutes before eating or drinking anything besides water. The only thing I ve noticed is definitely a weight loss stall and maybe more fatigue than normal. I ve been stuck around 215 since 10/10/23. It s the first real stall I ve had since starting tirzepatide so I m not sure if my dose should be increased for that as well? Or just get the thyroid dose sorted out first and go from there? Still no negative symptoms whatsoever on it so just let me know! Thank you! Ali [facility] 10-04-2023 Telephone encounter Note Sent to provider via JAVAN Giraldo MA [facility] 10-04-2023 Miscellaneous Notes Sent to provider via JAVAN Giraldo MA documented in this encounter [facility] 09-24-2023 Telephone encounter Note Okay to take rx as below Miguelito Champion DO The following approved medication requests have been transmitted electronically. Requested Prescriptions Signed Prescriptions Disp Refills mebendazole (VERMOX) 100 mg chewable tablet 2 tablet 0 Sig: Take 1 tablet PO once. Repeat dose in 2 weeks Authorizing Provider: MIGUELITO CHAMPION DO [facility] 09-24-2023 Miscellaneous Notes Okay to take rx as below Miguelito Champion DO The following approved medication requests have been transmitted electronically. Requested Prescriptions Signed Prescriptions Disp Refills mebendazole (VERMOX) 100 mg chewable tablet 2 tablet 0 Sig: Take 1 tablet PO once. Repeat dose in 2 weeks Authorizing Provider: MIGUELITO CHAMPION DO Patient calling to request medication for self and family members for pin worm. 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 Advised PCP out of office. Advised EC evaluation for sooner treatment. Lavonne Meehan RN documented in this encounter [facility] 09-22-2023 Telephone encounter Note Patient calling to request medication for self and family members for pin worm. 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 Advised PCP out of office. Advised EC evaluation for sooner treatment. Lavonne Meehan RN [facility] 08-17-2023 Telephone encounter Note Letter sent to pts home. Closed. [facility] 08-17-2023 Miscellaneous Notes Letter sent to pts home. Closed. 3rd attempt to reach patient. Left message to return call. Crystal Giraldo MA Left message to return call. Left message to return call Crystal Giraldo MA Please inform patient that her labs were off with her free t3 high, normal free t4, high TSH levels. Would like her to cut back to taking LABORER ORCHARD thyroid 120 mg 5 days a week and only 60 mg on 2 days a week Rechecck thyroid labs in 6-8 weeks Also her white blood cell count was slightly high. Would like this rechecked when thyroid labs are rechecked Miguelito Champion DO documented in this encounter [facility] 08-14-2023 Telephone encounter Note 3rd attempt to reach patient. Left message to return call. Crystal Giraldo MA [facility] 08-10-2023 Telephone encounter Note Left message to return call. [facility] 08-08-2023 Telephone encounter Note Left message to return call Crystal Giraldo MA [facility] 08-08-2023 Telephone encounter Note Please inform patient that her labs were off with her free t3 high, normal free t4, high TSH levels. Would like her to cut back to taking LABORER ORCHARD thyroid 120 mg 5 days a week and only 60 mg on 2 days a week Rechecck thyroid labs in 6-8 weeks Also her white blood cell count was slightly high. Would like this rechecked when thyroid labs are rechecked Miguelito Champion DO [facility] 07-21-2023 History of Present illness Narrative CC: Nena Leiva is a 33 year old female who presents to the office for physical HPI: She is overall doing well. She is working on weight loss. She has intentionally lost about 26 lbs. Max starting weight was 252 lbs around fall 2022. She has been taking tirzapetide medication GLP1 agonist through a wellness clinic. She is taking 7.5 mg per dose. She is asking if dose can be continued since she has been successful and she is tolerating rx well with minimal rare nausea, not routine symptoms. She is drinking good water intake. Exercising by weight lifting 3-4 days a week and aerobic exercise 3-4 days a week as well for 30 minutes Hypothyroidism, willing to have labs rechecked. She is taking LABORER ORCHARD thyroid hormone Vitamin D deficiency, taking supplement PAST MEDICAL HISTORY Diagnosis Date Acquired hypothyroidism 01/21/2015 Hypothyroidism 08/05/2012 mastitis Partial molar 03/2018 Rh negative state in antepartum period 11/07/2013 Vitamin D deficiency PAST SURGICAL HISTORY Procedure Laterality Date DILATION & CURETTAGE DX&/THER NONOBSTETRIC 03/28/2018 Dilation & curettage PAST SURGICAL HISTORY OF 05/22 extraction of wisdom teeth Social History: Social History Tobacco Use Smoking status: Never Smokeless tobacco: Never Vaping Use Vaping Use: Never used Substance Use Topics Alcohol use: No Drug use: No FAMILY HISTORY Problem Relation Age of Onset Thyroid Mother Cervical Cancer Mother Asthma Mother other (fibromyalgia) Mother No Known Problems Father No Known Problems Sister No Known Problems Sister No Known Problems Sister No Known Problems Brother No Known Problems Brother No Known Problems Brother No Known Problems Brother No Known Problems Brother Diabetes Brother diagnosed at age 19 Hyperlipidemia Maternal Grandmother Hypertension Maternal Grandmother Prostate Cancer Maternal Grandfather other (htn) Maternal Grandfather other (hypercholesteremia) Maternal Grandfather Breast Cancer Paternal Grandmother Hyperlipidemia Paternal Grandmother Asthma Brother Asthma Brother Allergies Son Asthma Son other (Eczema) Son Current Outpatient prescriptions: tirzepatide, weight loss (ZEPBOUND) 7.5 mg/0.5 mL pen injector Inject 7.5 mg subcutaneously one time a week. multivit with calcium,iron,min (WOMEN'S DAILY MULTIVITAMIN ORAL) Take by mouth once daily. Magnesium Oxide 500 mg magnesium tab Take 500 mg by mouth once daily. L.acid,para-B.bifidum-S.therm (QUAD-PROBIOTIC) 8 billion cell cap Take by mouth once daily. cetirizine (ZYRTEC) 10 mg tablet LABORER ORCHARD THYROID 60 mg tablet TAKE 2 TABLETS BY MOUTH EVERY DAY Cholecalciferol, Vitamin D3, 50 mcg (2,000 unit) cap Take by mouth once daily. EPINEPHrine (EPIPEN) 0.3 mg/0.3 mL (1:1,000) PnIj Use as needed following a bee sting NALTREXONE HCL, BULK, MISC 1 tablet once daily. 6 mg compound Allergies: ALLERGIES Allergen Reactions Bees Swelling Latex Hives ROS: See HPI PE: 07/20/23 1238 BP: 104/78 BP Site: Left Arm Pulse: 105 Resp: 16 Temp: 36.1 C (96.9 F) SpO2: 99% Weight: 102.9 kg (226 lb 12.8 oz) Height: 165 cm (5' 4.96") Gen: A&O, NAD, non-toxic appearing, Pleasant, cooperative HEENT: NT/AC, PERRLA, EOMs intact b/l, nares clear and patent b/l, pharynx without erythema, exudate or lesions. Uvula midline. EACs without erythema or debris. TMs pearly trujillo with intact landmarks b/l. Neck: supple, No cervical LAD, no thyromegaly, no carotid bruits CV: RRR, normal S1 and S2, no murmurs, no gallops, no rubs, Pulses 2+ and symmetric in UE and LE b/l Lungs: normal respiratory effort, CTA b/l, no wheezing or rhonchi or rales Abd: soft, NT, ND, +BS, no hepatosplenomegaly MS: FROM all 4 extremities Neuro: CN II-XII intact b/l, strength 5/5 b/l UE and LE, DTRs 2/4 UE and LE, sensation intact. Skin: warm, dry, intact, No rashes or lesions on exposed skin. Scattered typical appearing nevi and angiomas ASSESSMENT/PLAN: 1. Wellness examination - ICD9: V70.0, ICD10: Z00.00 (primary diagnosis) - Counseled on healthy diet and regular exercise - Discussed need and benefit for weight loss. BMI 37.79 kg/(m^2) - LIPID PANEL BASIC - COMPREHENSIVE METABOLIC PANEL - COMPLETE BLOOD COUNT AND DIFFERENTIAL - HEMOGLOBIN A1C - THYROID STIMULATING HORMONE - T4 FREE/FREE THYROXINE - T3, FREE 2. Acquired hypothyroidism - ICD9: 244.9, ICD10: E03.9 - Instructed patient on importance of taking on an empty stomach either first thing in the morning or at bedtime. Continue [facility] thyroid 3. Class 2 obesity with body mass index (BMI) of 37.0 to 37.9 in adult, unspecified obesity type, unspecified whether serious comorbidity present - ICD9: 278.00, V85.37, ICD10: E66.9, Z68.37 Weight decreasing - Behavioral intervention, - Pharmacological intervention, - Eat well program, and - Continue current medications Continue tirzepatide medication - GLP1 agonist- she is currently taking 7.5 mg /dose Miguelito Champion DO To ER if develops chest pain, shortness of breath, or severe worsening of symptoms. Discussed risks, benefits, alternatives, and potential side effects of medications. Patient expressed understanding and agreed with the plan. Miguelito Champion DO [address] [place] [address] documented in this encounter [facility] 04-06-2023 Miscellaneous Notes Pt was notified by my chart. She'll need to schedule an appt to discuss this. Humberto Goldman APRN.MIKE Below message from patient Narcisot: Hi Dr Champion, I am a little conflicted asking this but as you know, I ve been working to lose weight I initially gained with Ming s and never was able to get off for all these years (almost 9). And in the last 2 years, really tried to be more mindful of nutrition, exercise and walk consistently and be more in tune with my body in general. It seems like no matter what I do, I just cannot lose weight. I m becoming frustrated and of course, seeing all these people on the weight loss shot and having great success makes me wonder if it would actually be something that would work for me too? The lowest I ve been able to get post twins was 226 and then my thyroid levels went crazy and I gained back and even after getting things normal again, I have just slowly continued to gain or maintain despite tracking my macros and exercising. I eat at least 140 g of protein daily, walking 8-10k steps daily, rest 2 days a week and lift with some cardio the rest. Despite all of that, I m back up to 245-247 depending on the day. I m just frustrated and I trust your advice so I wanted to see if something like the weight loss shot would be beneficial for someone like me. Sorry for the book, hope you re doing amazing! Ali documented in this encounter [facility] 04-02-2023 Miscellaneous Notes The following approved medication requests have been transmitted electronically. Requested Prescriptions Signed Prescriptions Disp Refills LAB[facility]ER [facility]CHARD THYROID 60 mg tablet 180 tablet 3 Sig: TAKE 2 TABLETS BY MOUTH EVERY DAY Authorizing Provider: MARK ZAZUETA PA-C Patient has been identified by name and date of : Yes, Provider Miguelito Champion DO Date April 02, 2023 Time 10:23 AM Patient phones for refill(s): Requested Prescriptions Pending Prescriptions Disp Refills [facility] THYROID 60 mg tablet 60 tablet 3 Sig: TAKE 2 TABLETS BY MOUTH EVERY DAY Date of last office visit in primary care: 09/22/2022 Date of next office visit in primary care: none Patient Comment: Im still taking 2 tablets daily as prescribed so the quantity will need to be changed to reflect a 3 month supply. Please send a 90 day supply to [facility]. My got a new job and this is our new mail away pharmacy. Thanks! Please advise. Thank you. Glo Smith Ma. documented in this encounter [facility] 03-22-2023 Miscellaneous Notes Sent to provider in phone encounter. documented in this encounter [facility] 12-25-2022 Miscellaneous Notes Sent pt a my chart to call and schedule physical and labs are in . Left message to call and book physical. See below, please schedule physical Left message for return call. Please schedule her a physical and let her know that labs are ordered. Okay with myself in pcp flex or with Lisbeth or Karen in early September Miguelito Champion DO Copied from my chart. Hi Dr Champion! I have yearly screening forms for our insurance that I need to have completed. I ll need a lipid panel, fasting glucose, BP, height, weight and waist measurement. I m assuming I can just do a nurse visit for these? Or if you want to see me that works too! I have to send the completed form back by 10/12/22. Can you let me know if you want to see me or just do a nurse visit? And place orders for labs. Thanks so much! Hope you re having a great summer! Ali documented in this encounter [facility] 11-01-2022 Miscellaneous Notes Pt. informed via My Chart. Thyroid labs are all normal. Continue current regimen. Karen Azar APRN.CLINICAL THERAPIST Please see patient message Morning! I came in to do labs this morning because Sunday would be 6 weeks since my last check. Yesterday afternoon throughout early this morning, I was having some palpitations (like I do when my t3 is too high or TSH is too low) so I did not take my dose at all today. They have resolved now. documented in this encounter [facility] 10-31-2022 Miscellaneous Notes Made into TE documented in this encounter [facility] 10-26-2022 Miscellaneous Notes It appears their was a verbal order given to pharmacy on 10/23/22. TE started and routed to PCP to review and advise. Will keep encounter open to update pt. Romina Wells Ma documented in this encounter [facility] 10-23-2022 Miscellaneous Notes Pharmacy called and now needs to be ordered Thyroid 60 mg. that Verbal order was given. I don't know what rx is available for her to change to. We need to call pharmacy and clarify? [place] thyroid vs. [facility] Thyroid etc Miguelito Champion DO Pt sent [employer] message today regarding issues with Thyroid medication. On 10/13/22, same medication was sent in it looks like but different dosage. See message below from pt and advise in [employer] message or TE. Message: Hi! I received a text from [employer] saying my thyroid medication was no longer being manufactured as [facility] thyroid and it was needing to be changed to the new formulation/brand name. They said the new formulation is slightly different from what I m currently on so they would be needing a new script for the new brand name for it. This was last week that I talked with them but I just got a second text saying they ve not heard back from your office about what to change to. Can you send them an updated Rx? Thank you! documented in this encounter [facility] 10-13-2022 Miscellaneous Notes Patient phones requesting refills as follows: Pharmacy comment: Alternative Requested:THIS APPEARS TO HAVE DISCONTINUED. SPECIFICALLY THIS BRAND. Requested Prescriptions Pending Prescriptions Disp Refills [facility] THYROID 60 mg tablet [Pharmacy Med Name: LAB[facility] THYROID 60 MG TABLET] 60 tablet 3 Sig: TAKE 2 TABLETS BY MOUTH EVERY DAY Please review and advise. Yanni Evans LPN documented in this encounter [facility] 10-12-2022 Miscellaneous Notes Pt informed via [employer] message Crystal Giraldo Noted, please make sure she know that this was only 2 weeks before she had her labs checked so not long enough to know if helping yet. Needs to be 6-8 weeks to know if dose change of thyroid medication is helping her levels so no further med change at this time Miguelito Champion DO Please see pt [employer] message- Hi! When I was in to see Marycarmen a few weeks ago she adjusted my dose to 2 tablets daily. I ve been on a that since she made the change 3rd attempt to contact pt with no answer. Left message to return call. Will also send pt [employer] message. Crystal Giraldo Left message to return call. Left message for patient to call office back Colleen Mendieta Ma Please inform patient that her TSH is high and free t4 is low normal. Her dose of thyroid hormone needs to be increased. What is she currently taking? Miguelito Champion DO documented in this encounter [facility] 09-29-2022 Miscellaneous Notes Results and provider message sent to patient via [employer] message per patient request. Patient already started increased dose of medication. Gay Rod RN Left message to return call for results and instructions from provider. TC patient, left message for patient to call back and speak with a triage nurse regarding results and provider instructions. Gay Rod RN Left message to return call. Insurance health form was faxed to number on form. I recommend increasing [employer] thyroid to 2 tablets every day of the week. This will keep regimen easier as well. Recheck labs in 6 weeks. The rest of lab work looks fantastic! Please also let her know that paperwork for employer physical is filled out. Please fax. This is in my outbox. Thank you, Karen Azar APRN.CLINICAL THERAPIST See My Chart Message below: I just saw the thyroid labs come through tonight. I m just messaging to let you know that I am taking the 60 mg 2 tablets M-F and 1 tablet Sat & Sun. No missed doses. I always wait at least 30 minutes before having anything besides water. I m kind of surprised it isn t lower than it is considering the dose increase back in June. I did not take my dose the morning of my lab draw until I was finished (to try to get an accurate reading) but other than that, I ve done everything like normal. Have a great weekend! Component Latest Ref Rng & Units 09/22/2022 TSH 0.270 - 4.200 mIU/L 8.260 (H) Component Latest Ref Rng & Units 09/22/2022 Free T4 0.9 - 1.7 ng/dL 0.9 Component Latest Ref Rng & Units 09/22/2022 Free T3 2.3 - 4.1 pg/mL 3.2 At this time, thyroid peroxidse antibody is still pending. Please review and advise, Gay Rod RN documented in this encounter [facility] 09-23-2022 Miscellaneous Notes Turned Into Telephone Encounter. documented in this encounter [facility] 09-22-2022 History of Present illness Narrative Chief Complaint Patient presents with: Physical HPI Nena Leiva is a 32 year old female who presents here today for Above Complaints. Nena is an established patient of Dr. Akira DO. Concerns today.. Routine physical for work. Has paperwork with her to fill out. No concerns or complaints. Luigi disease seems well controlled currently, asymptomatic. Will recheck with lab work today. Past medical history, appointments, medications, allergies reviewed. Previous Medical History PAST MEDICAL HISTORY Diagnosis Date Acquired hypothyroidism 01/21/2015 Hypothyroidism 08/05/2012 mastitis Partial molar 03/2018 Rh negative state in antepartum period 11/07/2013 Vitamin D deficiency Previous Surgical History PAST SURGICAL HISTORY Procedure Laterality Date DILATION & CURETTAGE DX&/THER NONOBSTETRIC 03/28/2018 Dilation & curettage PAST SURGICAL HISTORY OF 05/22 extraction of wisdom teeth Family History FAMILY HISTORY Problem Relation Age of Onset Thyroid Mother Cervical Cancer Mother Asthma Mother other (fibromyalgia) Mother No Known Problems Father No Known Problems Sister No Known Problems Sister No Known Problems Sister No Known Problems Brother No Known Problems Brother No Known Problems Brother No Known Problems Brother No Known Problems Brother Diabetes Brother diagnosed at age 19 Hyperlipidemia Maternal Grandmother Hypertension Maternal Grandmother Prostate Cancer Maternal Grandfather other (htn) Maternal Grandfather other (hypercholesteremia) Maternal Grandfather Breast Cancer Paternal Grandmother Hyperlipidemia Paternal Grandmother Asthma Brother Asthma Brother Allergies Son Asthma Son other (Eczema) Son Patient Allergies ALLERGIES Allergen Reactions Bees Swelling Latex Hives Current Medications Current Outpatient Medications on File Prior to Visit Medication Sig pumpkin seed extract-soy germ (AZO BLADDER CONTROL) 300 mg cap Take by mouth. [facility] THYROID 60 mg tablet Take 1 tablet 2 days a week and 2 tablets 5 days a week Cholecalciferol, Vitamin D3, 50 mcg (2,000 unit) cap Take by mouth once daily. EPINEPHrine (EPIPEN) 0.3 mg/0.3 mL (1:1,000) PnIj Use as needed following a bee sting No current facility-administered medications on file prior to visit. Social History Social History Tobacco Use Smoking status: Never Smokeless tobacco: Never Vaping Use Vaping Use: Never used Substance Use Topics Alcohol use: No Drug use: No REVIEW OF SYSTEMS: as above Reviewed relevant PMHx, PSHx, Social Hx, current medications and allergies. Review of Symptoms REVIEW OF SYSTEMS See HPI. EXAM: BP 118/70 (BP Site: Left Arm, BP Position: Sitting, BP Cuff Size: Large Adult) Pulse 64 Resp 12 Ht 164 cm (5' 4.57") Wt 111.3 kg (245 lb 6.4 oz) LMP 06/15/2021 (Exact Date) BMI 41.39 kg/m General Appearance: Well appearing, alert, in no acute distress, well-hydrated, well nourished.. Skin: Skin color, texture, turgor normal, no suspicious rashes or lesions. Head: Normocephalic, no masses, lesions, tenderness or abnormalities. Neck: Supple, no adenopathy; thyroid symmetric, normal size, no bruits. Back:no pain to palpation of vertebrae, good flexion and extension, good range of motion, no muscle tenderness, reflexes are 2+ and symmetric, motor and sensory appear to be normal, negative SLR test, no evidence of scoliosis Lungs: Lungs clear to auscultation. No wheezing, rhonchi, rales.. Heart: RRR without murmur, gallop, or rubs. No ectopy. Abdomen: Normal abdominal exam, Abdomen soft, non-tender. Bowel sounds normal. No masses, organomegaly. Extremities: No deformities, edema, skin discoloration, clubbing or cyanosis. Good capillary refill. . Musculoskeletal: No joint swelling, deformity, or tenderness. Peripheral Pulses: Normal. Neurologic: Gait normal. Reflexes normal and symmetric. Sensation grossly intact.. Health Maintenance List COVID-19 VACCINE(1) Never done HPV VACCINE(3 - 3-dose series) due on 12/15/2011 HPV TESTING Never done DEPRESSION ASSESSMENT Never done ANNUAL PCP TEAM CHRONIC DISEASE VISIT due on 07/06/2022 INFLUENZA(1) due on 10/13/2022 PAP TESTING due on 03/26/2023 DTAP,TDAP,TD(3 - Td or Tdap) due on 03/25/2024 HEPATITIS C SCREENING Completed HIV SCREENING Completed ASSESSMENT/PLAN: 1. Wellness examination - ICD9: V70.0, ICD10: Z00.00 (primary diagnosis) - Counseled on healthy diet and regular exercise - Calcium intake with supplements or by diet of 1000 mg/day for under 50, 0678-0916 mg/day for 50+ - Depression screening tool completed and reviewed with patient. Based on score and interview, patient is not at risk for depression and recommended no further intervention at this time. - Follow up for annual exam in one year Complete lab work as ordered prior. Will fill out paperwork once labs result and fax to number provided. 2. Acquired hypothyroidism - ICD9: 244.9, ICD10: E03.9 Stable. Well controlled Continue current regimen. Repeat lab work as ordered prior. RTO annually and as needed. Prescription instructions reviewed with patient as applicable. Potential red flag symptoms discussed with the patient. Reviewed appropriate action plan to take if red flag symptoms occur. Patient agreeable to treatment plan. Karen Calles APRN.CLINICAL THERAPIST [address] [place] [address] documented in this encounter [facility] 08-28-2022 Miscellaneous Notes Copied to phone note. documented in this encounter [facility] 08-08-2022 Miscellaneous Notes Left another message for patient with negative results and recommendations.Dolores Valentin LPN Left message for pt to call back. Amanda Morgan MA ----- Message from Gita Argueta APRN.CLINICAL THERAPIST sent at 08/06/2022 8:10 AM EDT ----- Urine culture did not show any evidence of infection. She may continue to take antibiotic if it has been helpful. Recommend follow up with PCP to ensure hematuria has resolved. Gita Argueta CNP Orders placed Miguelito Champion DO Mychart message sent to pt making her aware of dosage change, Rx being sent into pharmacy and when to recheck labs. Dr. Champion I've pended labs to be rechecked in 2 months, please file. Romina Wells Ma TC patient, left message for patient to call back and speak with a triage nurse regarding results and provider instructions. Gay Rod RN Please call Ali and have her change rx to below based on recent thyroid lab results Recheck labs in 2-3 months Miguelito Champion DO The following approved medication requests have been transmitted electronically. Requested Prescriptions Signed Prescriptions Disp Refills [facility] THYROID 60 mg tablet 144 tablet 3 Sig: Take 1 tablet 2 days a week and 2 tablets 5 days a week Authorizing Provider: MIGUELITO CHAMPION DO Images from the original note were not included. Nena Leiva Kunal Wstr Famp My Chart Rx Pool Hi there! I saw my thyroid labs came back and things were off as I was suspecting. Just wanted to confirm that I am taking 2 pills MWF and 1 pill all other days. I wait 30-60 minutes before having anything but water. I will be getting back on LDN, I just needed my starting TPO antibody levels so she knew where things were before starting back up. If you make any changes, can you send an updated prescription to [facility] so I don t run out? Thank you for all you do! documented in this encounter [facility] 06-26-2022 Miscellaneous Notes Turned into JAVAN Giraldo documented in this encounter [facility] 06-13-2022 History of Present illness Narrative This note was created using [employer]. Subjective Nena Leiva is a 32 year old female. HPI Presents with multiple cat scratches on her left forearm from yesterday. She was attempting to trim her cats for when it got upset and scratched her arm. She did not get bit. This is her cat and is up-to-date on immunizations. No fever or chills. She noticed a little redness around some of the scratches which were becoming painful so she came in for evaluation. Review of Systems Constitutional: Negative. HENT: Negative. Respiratory: Negative. Cardiovascular: Negative. Gastrointestinal: Negative. Skin: Scratches on left arm All other systems reviewed and are negative. PAST MEDICAL HISTORY Diagnosis Date Acquired hypothyroidism 01/21/2015 Hypothyroidism 08/05/2012 mastitis Partial molar 03/2018 Rh negative state in antepartum period 11/07/2013 Vitamin D deficiency Current Outpatient Medications Medication Sig Dispense Refill [facility] THYROID 60 mg tablet Take 1 tablet 4 days a week and 2 tablets 3 days a week 120 tablet 2 Cholecalciferol, Vitamin D3, 50 mcg (2,000 unit) cap Take by mouth once daily. EPINEPHrine (EPIPEN) 0.3 mg/0.3 mL (1:1,000) PnIj Use as needed following a bee sting 2 Each 1 cephALEXin (KEFLEX) 500 mg capsule Take 1 capsule by mouth three times daily for 7 days. 21 capsule 0 clotrimazole (CLOTRIMAZOLE AF) 1 % cream To apply small amount to nipple after each feed. Prior to each feeding, remove the medication using coconut or olive oil. Continue until symptoms have improved for 2 days. (Patient not taking: Reported on 04/06/2020 ) 28 g 0 docusate sodium (COLACE) 100 mg capsule Take 100 mg by mouth once daily. aspirin, enteric coated (ASPIRIN, ENTERIC COATED) 81 mg EC tablet Take 81 mg by mouth once daily. naltrexone 4.5 mg capsule Take 4.5 mg by mouth daily at bedtime. (Patient not taking: Reported on 06/13/2022) Biotin 10,000 mcg cap [id number] tab Take 1 tablet by mouth. (Patient not taking: Reported on 06/13/2022) No current facility-administered medications for this visit. PAST SURGICAL HISTORY Procedure Laterality Date DILATION & CURETTAGE DX&/THER NONOBSTETRIC 03/28/2018 Dilation & curettage PAST SURGICAL HISTORY OF 10 extraction of wisdom teeth FAMILY HISTORY Problem Relation Age of Onset Thyroid Mother Cervical Cancer Mother Asthma Mother other (fibromyalgia) Mother No Known Problems Father No Known Problems Sister No Known Problems Sister No Known Problems Sister No Known Problems Brother No Known Problems Brother No Known Problems Brother No Known Problems Brother No Known Problems Brother Diabetes Brother diagnosed at age 19 Hyperlipidemia Maternal Grandmother Hypertension Maternal Grandmother Prostate Cancer Maternal Grandfather other (htn) Maternal Grandfather other (hypercholesteremia) Maternal Grandfather Breast Cancer Paternal Grandmother Hyperlipidemia Paternal Grandmother Asthma Brother Asthma Brother Allergies Son Asthma Son other (Eczema) Son Social History Tobacco Use Smoking status: Never Smokeless tobacco: Never Vaping Use Vaping Use: Never used Substance Use Topics Alcohol use: No Drug use: No Objective BP 122/72 Pulse 90 Temp 36.7 C (98 F) Resp 16 Wt 112.5 kg (248 lb) LMP 06/15/2021 (Exact Date) SpO2 99% BMI 41.57 kg/m Physical Exam Vitals reviewed. Constitutional: Appearance: Normal appearance. HENT: Head: Normocephalic and atraumatic. Skin: General: Skin is warm. Comments: Multiple scratches on the left forearm, with minimal erythema on the ventral forearm. No papules, vesicles, or streaking. Neurological: Mental Status: She is alert. Assessment and Plan ASSESSMENT/PLAN: 1. Cat scratch of forearm, left, initial encounter - ICD9: 913.0, E906.8, ICD10: S50.812A, W55.03XA We will cover for common skin pathogens with Keflex. She has no signs of cat scratch disease here, no papular lesions, vesicles, fever or adenopathy. I did discuss with her signs of this and to be seen again if this occurs. She did not have any bites from the cat. Her Tdap is up-to-date. Paula Lang PA-C documented in this encounter [facility] 04-07-2022 Miscellaneous Notes Pt informed Crystal Giraldo Yes Dr. Champion will take them as patients. They'll likely need to see Karen or myself. Humebrto Goldman APRN.CLINICAL THERAPIST documented in this encounter [facility] 12-09-2021 Miscellaneous Notes Alexandro--07/06/21 Nov--nothing booked Last refill--07/08/21 120 with 2 refills Last labs--07/06/21 documented in this encounter [facility] 07-06-2021 History of Present illness Narrative CC: Nena Leiva is a 31 year old female who presents to the office for physical HPI: Overall she is feeling well. She has been working on her diet and exercise and has lost 50 lbs in the last 2 years after her twins have been born Hypothyroidism, taking [employer] thyroid hormone 2 days a week 2 tablets and 1 tablet 5 days a week. Tolerating well Going to have thyroid labs rechecked today PAST MEDICAL HISTORY Diagnosis Date Acquired hypothyroidism 01/21/2015 Hypothyroidism 08/05/2012 mastitis Partial molar 03/2018 Rh negative state in antepartum period 11/07/2013 Vitamin D deficiency PAST SURGICAL HISTORY Procedure Laterality Date DILATION & CURETTAGE DX&/THER NONOBSTETRIC 03/28/2018 Dilation & curettage PAST SURGICAL HISTORY OF 05/22 extraction of wisdom teeth Social History: Social History Tobacco Use Smoking status: Never Smoker Smokeless tobacco: Never Used Vaping Use Vaping Use: Never used Substance Use Topics Alcohol use: No Drug use: No FAMILY HISTORY Problem Relation Age of Onset Thyroid Mother Cervical Cancer Mother Asthma Mother other (fibromyalgia) Mother No Known Problems Father No Known Problems Sister No Known Problems Sister No Known Problems Sister No Known Problems Brother No Known Problems Brother No Known Problems Brother No Known Problems Brother No Known Problems Brother Diabetes Brother diagnosed at age 18 Hyperlipidemia Maternal Grandmother Hypertension Maternal Grandmother Prostate Cancer Maternal Grandfather other (htn) Maternal Grandfather other (hypercholesteremia) Maternal Grandfather Breast Cancer Paternal Grandmother Hyperlipidemia Paternal Grandmother Asthma Brother Asthma Brother Allergies Son Asthma Son other (Eczema) Son Current Outpatient prescriptions: [facility] THYROID 60 mg Take 1 tablet 5 days a week and 2 tablets 2 days a week naltrexone 4.5 mg capsule Take 4.5 mg by mouth daily at bedtime. Biotin 10,000 mcg cap Npkawemi-Pp-Frm-Fe-FA ( VITAMIN) tab Take 1 tablet by mouth. Cholecalciferol, Vitamin D3, (VITAMIN D-3) 2,000 unit cap Take by mouth once daily. EPINEPHrine (EPIPEN) 0.3 mg/0.3 mL (1:1,000) PnIj Use as needed following a bee sting clotrimazole (CLOTRIMAZOLE AF) 1 % cream To apply small amount to nipple after each feed. Prior to each feeding, remove the medication using coconut or olive oil. Continue until symptoms have improved for 2 days. docusate sodium (COLACE) 100 mg capsule Take 100 mg by mouth once daily. aspirin, enteric coated (ASPIRIN, ENTERIC COATED) 81 mg EC tablet Take 81 mg by mouth once daily. Allergies: ALLERGIES Allergen Reactions Bees Swelling Latex Hives ROS: See HPI PE: 07/06/21 0739 BP: 120/70 Pulse: 80 Resp: 16 Temp: 36.4 C (97.5 F) TempSrc: Left Tympanic Weight: 103.9 kg (229 lb) Height: 164.5 cm (5' 4.76") Gen: A&O, NAD, non-toxic appearing, Pleasant, cooperative HEENT: NT/AC, PERRLA, EOMs intact b/l, nares clear and patent b/l, pharynx without erythema, exudate or lesions. Uvula midline. EACs without erythema or debris. TMs pearly trujillo with intact landmarks b/l. Neck: supple, No cervical LAD, no thyromegaly, no carotid bruits CV: RRR, normal S1 and S2, no murmurs, no gallops, no rubs, Pulses 2+ and symmetric in UE and LE b/l Lungs: normal respiratory effort, CTA b/l, no wheezing or rhonchi or rales Abd: soft, NT, ND, +BS, no hepatosplenomegaly MS: FROM all 4 extremities Neuro: CN II-XII intact b/l, strength 5/5 b/l UE and LE, DTRs 2/4 UE and LE, sensation intact. Skin: warm, dry, intact, No rashes or lesions on exposed skin. No edema, normal pulses ASSESSMENT/PLAN: 1. Wellness examination - ICD9: V70.0, ICD10: Z00.00 (primary diagnosis) - Counseled on healthy diet and regular exercise - Calcium intake with supplements or by diet of 1000 mg/day for under 50, 6258-2861 mg/day for 50+ 2. Acquired hypothyroidism - ICD9: 244.9, ICD10: E03.9 - Instructed patient on importance of taking on an empty stomach either first thing in the morning or at bedtime. - check TSH, free T4 and Free T3 today Stable - Continue current medications - TSH BLD - T4 FREE/FREE THYROX - T3 FREE BLD - THYROID PEROXIDASE ANTIBODY BLOOD Miguelito L Champion, DO To ER if develops chest pain, shortness of breath, or severe worsening of symptoms. Discussed risks, benefits, alternatives, and potential side effects of medications. Patient expressed understanding and agreed with the plan. Miguelito Champion DO [address] [place] [address] THE LAST 2 WEEKS, HAVE YOU BEEN BOTHERED BY ANY OF THE FOLLOWING? - Little interest or pleasure in doing things 0 NOT AT ALL Feeling down, depressed, or hopeless 0 Trouble falling or staying asleep, or sleeping too much 0 Feeling tired or having little energy 0 Poor appetite or overeating 0 Feeling bad yourself-you are a failure or have let yourself or others 0 Trouble concentrating, like reading the paper or watching TV 0 Moving/speaking slowly (others notice) OR being more fidgety/restless 0 Thoughts that you would be better off or of hurting yourself 0 PHQ TOTAL SCORE = 0 PHQ problems effect on difficulty of work, home, and social activity: 1 - NOT DIFFICULT AT ALL documented in this encounter [facility] 06-15-2021 Miscellaneous Notes Upcoming office visit and blood work this month. Will fill enough to get to this point. The following approved medication requests have been transmitted electronically. Signed Prescriptions Disp Refills [facility] THYROID 60 mg 108 tablet 1 Sig: Take 1 tablet 5 days a week and 2 tablets 2 days a week VIRIDIANA: Yes Authorizing Provider: KAREN CALLES APRN.MIKE Patient has been identified by name and date of : Yes Patient only has a few left of medication, see Appolicioust message. Patient phones for refill(s): Pending Prescriptions Disp Refills [facility] THYROID 60 MG TABLET 108 tablet 1 Sig: Take 1 tablet 5 days a week and 2 tablets 2 days a week VIRIDIANA: Yes Date of last office visit in primary care: 05/30/19 Please advise. Thank you. Dolores Layton LPN documented in this encounter [facility] 05-23-2021 Miscellaneous Notes The following approved medication requests have been transmitted electronically. Signed Prescriptions Disp Refills [facility] THYROID 60 mg 108 tablet 1 Sig: Take 1 tablet 5 days a week and 2 tablets 2 days a week VIRIDIANA: Yes Authorizing Provider: KAREN CALLES Ordering User: HUMBERTO GOLDMAN APRN.CNP alexandro-- 05/30/19 Last refill 05/18/21 34 with 0 refills documented in this encounter [facility] 05-18-2021 Miscellaneous Notes The following approved medication requests have been transmitted electronically. Signed Prescriptions Disp Refills [facility] THYROID 60 mg 34 tablet 0 Sig: Take 1 tablet 5 days a week and 2 tablets 2 days a week VIRIDIANA: Yes Authorizing Provider: KAREN CALLES APRN.CLINICAL THERAPIST .Spoke with patient. Given message from provider's office. Patient verbalizes understanding. She is taking [facility] Thyroid as prescribed in note below. Please send new script to [facility]. Lavonne Meehan RN left with patient to contact office for results Crystal Mahajan Ma Please let patient know we got her blood work results. Her TSH is very elevated. Please clarify that she is taking [facility] thyroid 60 mg 6x/week and 2 tablets (120 mg) 1 day per week? If so, she needs to increase this to 60 mg 5x/week and 120 mg 2x/week. Will send RX if these is correct. All other blood work results look good. We are still waiting on HgA1c and Vit D to result. We will relay these results once we have them. Karen Calles APRN.MIKE documented in this encounter [facility] 05-04-2021 Miscellaneous Notes Reminded of lab work by my chart. Remind patient that she needs blood work from 05/02 prior to any additional refills. The following approved medication requests have been transmitted electronically. Pending Prescriptions Disp Refills [facility] THYROID 60 MG TABLET 28 tablet 0 Sig: Take 1 tablet 1 days a week and 2 tablets 6 days a week VIRIDIANA: Yes Karen Calles APRN.CNP Patient has been identified by name and date of : Yes Patient phones for refill(s): Pending Prescriptions Disp Refills [facility] THYROID 60 MG TABLET 28 tablet 0 Sig: Take 1 tablet 1 days a week and 2 tablets 6 days a week VIRIDIANA: Yes Date of last office visit in primary care: appointment scheduled 07/06/2021 Please advise. Thank you. Dolores Layton LPN documented in this encounter [facility] 05-02-2021 Miscellaneous Notes Pt. informed via My Chart. Lisa León LPN Patient needs routine office visit d/t last visit almost 2 years ago. Blood work placed prior to scheduled appointment. Please assist in making appointment. The following approved medication requests have been transmitted electronically. Signed Prescriptions Disp Refills [facility] THYROID 60 mg 28 tablet 0 Sig: Take 1 tablet 1 days a week and 2 tablets 6 days a week VIRIDIANA: Yes Authorizing Provider: KAREN CALLES APRN.CLINICAL THERAPIST Patient phones requesting refills as follows: Pending Prescriptions Disp Refills [facility] THYROID 60 MG TABLET 28 tablet 0 Sig: Take 1 tablet 1 days a week and 2 tablets 6 days a week VIRIDIANA: Yes ALEXANDRO-05/30/19 Labs-02/07/21 NOV-none med filled 08/30/20 Please review and advise. Yanni Evans LPN documented in this encounter [facility] 04-06-2020 History of Present illness Narrative Radiology Service Progress Note PATIENT NAME: Nena Leiva DATE OF SERVICE: April 06, 2020 TIME: 9:49 AM PATIENT IDENTITY VERIFICATION COMPLETED USING TWO (2) IDENTIFIERS: Name and Date of confirmed by patient verbally. FALL SCREENING: Has the patient had 2 falls in the last year or 1 fall with injury or currently using an Ambulatory Assistive Device (Walker, Cane, Wheelchair, Crutches, etc.)? No PATIENT GENDER DATA: Female. status: : No status: NO. PATIENT RELEVANT IMPLANT DATA REVIEWED: Yes RADIOLOGY DEPARTMENT: General X-ray: Exam(s) Completed: Lower Extremity X-Ray(s): Foot, Left and Wt. Bearing: PERIPHERAL IV DATA: Not applicable SIGNED BY: RT Dalton April 06, 2020 9:49 AM documented in this encounter [facility] 12-19-2018 History of Past i llness Narrative Problem Noted Date Resolved Date History of loss in prior , currently in first trimester 12/19/2018 01/23/2019 Overview: 12/19/2018Patient has a history of partial molar 03/2018. Quant HCG ordered by Dr Velazquez. Ptient denies any bleeding, pain or cramping this . .TKRN Nausea and vomiting in 12/19/2018 05/30/2019 Overview: 12/19/2018Patient is complaining of nausea and occasional vomiting in . Dietary considerations discussed . Vitamin B6 recommended. Advised patient to call/come in if she is unable to keep any food or fluids down in a 24-hour period.TKRN Routine physical examination 08/07/201801/2019 Partial molar 04/05/2018 01/24/20 19 Overview: April 05, 2018 IPAS in office pathology. Follow quants weekly until neg x 3 then monthly x 6 months. Freya Velazquez MD Disorder of thyroid, antepartum 03/14/2018 03/28/2018 Overview: 03/14/2018Patient has a history of thyroid disorder. Sees Dr Champion. Thyroid labs last drawn 02/25/2018. Patient states she is to have them rechecked in 1 month. TKRN Obesity in 03/14/2018 03/28/2018 Overview: 12/19/2018Patient is obese. Will plan on GCt@ NOB. TKRN Excessive weight gain during , antepart um 03/14/2018 03/28/2018 Overview: 03/14/2018 Patient states she had a 70# weight gain last . Discussed good nutrition during and optimal weight gain. Recommended patient see berry picker machine operator to discuss further. Patient will consider. TKRN Patient request for diagnostic testing 9 05/30/2019 Overview: 12/19/2018 Patient desires nuchal ultrasond . Considering genetic carrier screening testing. TKRN TKRN Mold exposure 08/03/2016 03/28/2018 Thyroiditis 03/24/2016 03/28/2018 Angular cheilitis 12/24/2015 03/28/2018 Well adult exam 12/24/2015 03/28/2018 Impaired fasting glucose 10/27/2015 016 Malaise and fatigue 07/23/2015 03/28/2018 Acquired hypothyroidism 01/21/2015 01/24/20 19 Normal , first 11/06/2013 08/11/19 15 Overview: Markus Crawford documented as of this encounter (statuses as of 05/02/2021) [facility] History of Past illness Narrative* Problem Noted Date Resolved Date History of loss in prior , currently in first trimester 12/19/2018 01/23/2019 Overview: 12/19/2018Patient has a history of partial molar 03/2018. Quant HCG ordered by Dr Velazquez. Ptient denies any bleeding, pain or cramping this . .TKRN Nausea and vomiting in 12/19/2018 05/30/2019 Overview: 12/19/2018Patient is complaining of nausea and occasional vomiting in . Dietary considerations discussed . Vitamin B6 recommended. Advised patient to call/come in if she is unable to keep any food or fluids down in a 24-hour period.TKRN Routine physical examination 08/07/201801/2019 Partial molar 04/05/2018 01/24/20 19 Overview: April 05, 2018 IPAS in office pathology. Follow quants weekly until neg x 3 then monthly x 6 months. Freya Velazquez MD Disorder of thyroid, antepartum 03/14/2018 03/28/2018 Overview: 03/14/2018Patient has a history of thyroid disorder. Sees Dr Champion. Thyroid labs last drawn 02/25/2018. Patient states she is to have them rechecked in 1 month. TKRN Obesity in 03/14/2018 03/28/2018 Overview: 12/19/2018Patient is obese. Will plan on GCt@ NOB. TKRN Excessive weight gain during , antepart um 03/14/2018 03/28/2018 Overview: 03/14/2018 Patient states she had a 70# weight gain last . Discussed good nutrition during and optimal weight gain. Recommended patient see berry picker machine operator to discuss further. Patient will consider. TKRN Patient request for diagnostic testing 9 05/30/2019 Overview: 12/19/2018 Patient desires nuchal ultrasond . Considering genetic carrier screening testing. TKRN TKRN Mold exposure 08/03/2016 03/28/2018 Thyroiditis 03/24/2016 03/28/2018 Angular cheilitis 12/24/2015 03/28/2018 Well adult exam 12/24/2015 03/28/2018 Impaired fasting glucose 10/27/2015 016 Malaise and fatigue 07/23/2015 03/28/2018 Acquired hypothyroidism 01/21/2015 01/24/20 19 Normal , first 11/06/2013 08/11/19 15 Overview: Markus Crawford documented as of this encounter (statuses as of 05/04/2021) [facility] History of Past illness Narrative* Problem Noted Date Resolved Date History of loss in prior , currently in first trimester 12/19/2018 01/23/2019 Overview: 12/19/2018Patient has a history of partial molar 03/2018. Quant HCG ordered by Dr Velazquez. Ptient denies any bleeding, pain or cramping this . .TKRN Nausea and vomiting in 12/19/2018 05/30/2019 Overview: 12/19/2018Patient is complaining of nausea and occasional vomiting in . Dietary considerations discussed . Vitamin B6 recommended. Advised patient to call/come in if she is unable to keep any food or fluids down in a 24-hour period.TKRN Routine physical examination 08/07/201801/2019 Partial molar 04/05/2018 01/24/20 19 Overview: April 05, 2018 IPAS in office pathology. Follow quants weekly until neg x 3 then monthly x 6 months. Freya Velazquez MD Disorder of thyroid, antepartum 03/14/2018 03/28/2018 Overview: 03/14/2018Patient has a history of thyroid disorder. Sees Dr Champion. Thyroid labs last drawn 02/25/2018. Patient states she is to have them rechecked in 1 month. TKRN Obesity in 03/14/2018 03/28/2018 Overview: 12/19/2018Patient is obese. Will plan on GCt@ NOB. TKRN Excessive weight gain during , antepart um 03/14/2018 03/28/2018 Overview: 03/14/2018 Patient states she had a 70# weight gain last . Discussed good nutrition during and optimal weight gain. Recommended patient see berry picker machine operator to discuss further. Patient will consider. TKRN Patient request for diagnostic testing 9 05/30/2019 Overview: 12/19/2018 Patient desires nuchal ultrasond . Considering genetic carrier screening testing. TKRN TKRN Mold exposure 08/03/2016 03/28/2018 Thyroiditis 03/24/2016 03/28/2018 Angular cheilitis 12/24/2015 03/28/2018 Well adult exam 12/24/2015 03/28/2018 Impaired fasting glucose 10/27/2015 016 Malaise and fatigue 07/23/2015 03/28/2018 Acquired hypothyroidism 01/21/2015 01/24/20 19 Normal , first 11/06/2013 08/11/19 15 Overview: Boy- Brayson documented as of this encounter (statuses as of 05/18/2021) [facility] History of Past illness Narrative* Problem Noted Date Resolved Date History of loss in prior , currently in first trimester 12/19/2018 01/23/2019 Overview: 12/19/2018Patient has a history of partial molar 03/2018. Quant HCG ordered by Dr Velazquez. Ptient denies any bleeding, pain or cramping this . .TKRN Nausea and vomiting in 12/19/2018 05/30/2019 Overview: 12/19/2018Patient is complaining of nausea and occasional vomiting in . Dietary considerations discussed . Vitamin B6 recommended. Advised patient to call/come in if she is unable to keep any food or fluids down in a 24-hour period.TKRN Routine physical examination 08/07/201801/2019 Partial molar 04/05/2018 01/24/20 19 Overview: April 05, 2018 IPAS in office pathology. Follow quants weekly until neg x 3 then monthly x 6 months. Freya Velazquez MD Disorder of thyroid, antepartum 03/14/2018 03/28/2018 Overview: 03/14/2018Patient has a history of thyroid disorder. Sees Dr Champion. Thyroid labs last drawn 02/25/2018. Patient states she is to have them rechecked in 1 month. TKRN Obesity in 03/14/2018 03/28/2018 Overview: 12/19/2018Patient is obese. Will plan on GCt@ NOB. TKRN Excessive weight gain during , antepart um 03/14/2018 03/28/2018 Overview: 03/14/2018 Patient states she had a 70# weight gain last . Discussed good nutrition during and optimal weight gain. Recommended patient see berry picker machine operator to discuss further. Patient will consider. TKRN Patient request for diagnostic testing 9 05/30/2019 Overview: 12/19/2018 Patient desires nuchal ultrasond . Considering genetic carrier screening testing. TKRN TKRN Mold exposure 08/03/2016 03/28/2018 Thyroiditis 03/24/2016 03/28/2018 Angular cheilitis 12/24/2015 03/28/2018 Well adult exam 12/24/2015 03/28/2018 Impaired fasting glucose 10/27/2015 016 Malaise and fatigue 07/23/2015 03/28/2018 Acquired hypothyroidism 01/21/2015 01/24/20 19 Normal , first 11/06/2013 08/11/19 15 Overview: Markus Crawford documented as of this encounter (statuses as of 05/23/2021) [facility] History of Past illness Narrative* Problem Noted Date Resolved Date History of loss in prior , currently in first trimester 12/19/2018 01/23/2019 Overview: 12/19/2018Patient has a history of partial molar 03/2018. Quant HCG ordered by Dr Velazquez. Ptient denies any bleeding, pain or cramping this . .TKRN Nausea and vomiting in 12/19/2018 05/30/2019 Overview: 12/19/2018Patient is complaining of nausea and occasional vomiting in . Dietary considerations discussed . Vitamin B6 recommended. Advised patient to call/come in if she is unable to keep any food or fluids down in a 24-hour period.TKRN Routine physical examination 08/07/201801/2019 Partial molar 04/05/2018 01/24/20 19 Overview: April 05, 2018 IPAS in office pathology. Follow quants weekly until neg x 3 then monthly x 6 months. Freya Velazquez MD Disorder of thyroid, antepartum 03/14/2018 03/28/2018 Overview: 03/14/2018Patient has a history of thyroid disorder. Sees Dr Champion. Thyroid labs last drawn 02/25/2018. Patient states she is to have them rechecked in 1 month. TKRN Obesity in 03/14/2018 03/28/2018 Overview: 12/19/2018Patient is obese. Will plan on GCt@ NOB. TKRN Excessive weight gain during , antepart um 03/14/2018 03/28/2018 Overview: 03/14/2018 Patient states she had a 70# weight gain last . Discussed good nutrition during and optimal weight gain. Recommended patient see berry picker machine operator to discuss further. Patient will consider. TKRN Patient request for diagnostic testing 9 05/30/2019 Overview: 12/19/2018 Patient desires nuchal ultrasond . Considering genetic carrier screening testing. TKRN TKRN Mold exposure 08/03/2016 03/28/2018 Thyroiditis 03/24/2016 03/28/2018 Angular cheilitis 12/24/2015 03/28/2018 Well adult exam 12/24/2015 03/28/2018 Impaired fasting glucose 10/27/2015 016 Malaise and fatigue 07/23/2015 03/28/2018 Acquired hypothyroidism 01/21/2015 01/24/20 19 Normal , first 11/06/2013 08/11/19 15 Overview: Cristiano- Ty documented as of this encounter (statuses as of 06/15/2021) [facility] History of Past illness Narrative* Problem Noted Date Resolved Date History of loss in prior , currently in first trimester 12/19/2018 01/23/2019 Overview: 12/19/2018Patient has a history of partial molar 03/2018. Quant HCG ordered by Dr Velazquez. Ptient denies any bleeding, pain or cramping this . .TKRN Nausea and vomiting in 12/19/2018 05/30/2019 Overview: 12/19/2018Patient is complaining of nausea and occasional vomiting in . Dietary considerations discussed . Vitamin B6 recommended. Advised patient to call/come in if she is unable to keep any food or fluids down in a 24-hour period.TKRN Routine physical examination 08/07/201801/2019 Partial molar 04/05/2018 01/24/20 19 Overview: April 05, 2018 IPAS in office pathology. Follow quants weekly until neg x 3 then monthly x 6 months. Freya Velazquez MD Disorder of thyroid, antepartum 03/14/2018 03/28/2018 Overview: 03/14/2018Patient has a history of thyroid disorder. Sees Dr Champion. Thyroid labs last drawn 02/25/2018. Patient states she is to have them rechecked in 1 month. TKRN Obesity in 03/14/2018 03/28/2018 Overview: 12/19/2018Patient is obese. Will plan on GCt@ NOB. TKRN Excessive weight gain during , antepart um 03/14/2018 03/28/2018 Overview: 03/14/2018 Patient states she had a 70# weight gain last . Discussed good nutrition during and optimal weight gain. Recommended patient see berry picker machine operator to discuss further. Patient will consider. TKRN Patient request for diagnostic testing 9 05/30/2019 Overview: 12/19/2018 Patient desires nuchal ultrasond . Considering genetic carrier screening testing. TKRN TKRN Mold exposure 08/03/2016 03/28/2018 Thyroiditis 03/24/2016 03/28/2018 Angular cheilitis 12/24/2015 03/28/2018 Well adult exam 12/24/2015 03/28/2018 Impaired fasting glucose 10/27/2015 016 Malaise and fatigue 07/23/2015 03/28/2018 Acquired hypothyroidism 01/21/2015 01/24/20 19 Normal , first 11/06/2013 08/11/19 15 Overview: Markus Crawford documented as of this encounter (statuses as of 07/06/2021) [facility] History of Past illness Narrative* Problem Noted Date Resolved Date History of loss in prior , currently in first trimester 12/19/2018 01/23/2019 Overview: 12/19/2018Patient has a history of partial molar 03/2018. Quant HCG ordered by Dr Velazquez. Ptient denies any bleeding, pain or cramping this . .TKRN Nausea and vomiting in 12/19/2018 05/30/2019 Overview: 12/19/2018Patient is complaining of nausea and occasional vomiting in . Dietary considerations discussed . Vitamin B6 recommended. Advised patient to call/come in if she is unable to keep any food or fluids down in a 24-hour period.TKRN Routine physical examination 08/07/201801/2019 Partial molar 04/05/2018 01/24/20 19 Overview: April 05, 2018 IPAS in office pathology. Follow quants weekly until neg x 3 then monthly x 6 months. Freya Velazquez MD Disorder of thyroid, antepartum 03/14/2018 03/28/2018 Overview: 03/14/2018Patient has a history of thyroid disorder. Sees Dr Champion. Thyroid labs last drawn 02/25/2018. Patient states she is to have them rechecked in 1 month. TKRN Obesity in 03/14/2018 03/28/2018 Overview: 12/19/2018Patient is obese. Will plan on GCt@ NOB. TKRN Excessive weight gain during , antepart um 03/14/2018 03/28/2018 Overview: 03/14/2018 Patient states she had a 70# weight gain last . Discussed good nutrition during and optimal weight gain. Recommended patient see berry picker machine operator to discuss further. Patient will consider. TKRN Patient request for diagnostic testing 9 05/30/2019 Overview: 12/19/2018 Patient desires nuchal ultrasond . Considering genetic carrier screening testing. TKRN TKRN Mold exposure 08/03/2016 03/28/2018 Thyroiditis 03/24/2016 03/28/2018 Angular cheilitis 12/24/2015 03/28/2018 Well adult exam 12/24/2015 03/28/2018 Impaired fasting glucose 10/27/2015 016 Malaise and fatigue 07/23/2015 03/28/2018 Acquired hypothyroidism 01/21/2015 01/24/20 19 Normal , first 11/06/2013 08/11/19 15 Overview: Markus Crawford documented as of this encounter (statuses as of 08/19/2021) [facility] History of Past illness Narrative* Problem Noted Date Resolved Date History of loss in prior , currently in first trimester 12/19/2018 01/23/2019 Overview: 12/19/2018Patient has a history of partial molar 03/2018. Quant HCG ordered by Dr Velazquez. Ptient denies any bleeding, pain or cramping this . .TKRN Nausea and vomiting in 12/19/2018 05/30/2019 Overview: 12/19/2018Patient is complaining of nausea and occasional vomiting in . Dietary considerations discussed . Vitamin B6 recommended. Advised patient to call/come in if she is unable to keep any food or fluids down in a 24-hour period.TKRN Routine physical examination 08/07/201801/2019 Partial molar 04/05/2018 01/24/20 19 Overview: April 05, 2018 IPAS in office pathology. Follow quants weekly until neg x 3 then monthly x 6 months. Freya Velazquez MD Disorder of thyroid, antepartum 03/14/2018 03/28/2018 Overview: 03/14/2018Patient has a history of thyroid disorder. Sees Dr Champion. Thyroid labs last drawn 02/25/2018. Patient states she is to have them rechecked in 1 month. TKRN Obesity in 03/14/2018 03/28/2018 Overview: 12/19/2018Patient is obese. Will plan on GCt@ NOB. TKRN Excessive weight gain during , antepart um 03/14/2018 03/28/2018 Overview: 03/14/2018 Patient states she had a 70# weight gain last . Discussed good nutrition during and optimal weight gain. Recommended patient see berry picker machine operator to discuss further. Patient will consider. TKRN Patient request for diagnostic testing 9 05/30/2019 Overview: 12/19/2018 Patient desires nuchal ultrasond . Considering genetic carrier screening testing. TKRN TKRN Mold exposure 08/03/2016 03/28/2018 Thyroiditis 03/24/2016 03/28/2018 Angular cheilitis 12/24/2015 03/28/2018 Well adult exam 12/24/2015 03/28/2018 Impaired fasting glucose 10/27/2015 016 Malaise and fatigue 07/23/2015 03/28/2018 Acquired hypothyroidism 01/21/2015 01/24/20 19 Normal , first 11/06/2013 08/11/19 15 Overview: Cristiano- Ty documented as of this encounter (statuses as of 12/09/2021) [facility]11-07-2019 History of Past illness Narrative* Problem Noted Date Resolved Date History of loss in prior , currently in first trimester 12/19/2018 01/23/2019 Overview: 12/19/2018Patient has a history of partial molar 03/2018. Quant HCG ordered by Dr Velazquez. Ptient denies any bleeding, pain or cramping this . .TKRN Nausea and vomiting in 12/19/2018 05/30/2019 Overview: 12/19/2018Patient is complaining of nausea and occasional vomiting in . Dietary considerations discussed . Vitamin B6 recommended. Advised patient to call/come in if she is unable to keep any food or fluids down in a 24-hour period.TKRN Routine physical examination 08/07/201801/2019 Partial molar 04/05/2018 01/24/20 19 Overview: April 05, 2018 IPAS in office pathology. Follow quants weekly until neg x 3 then monthly x 6 months. Freya Velazquez MD Disorder of thyroid, antepartum 03/14/2018 03/28/2018 Overview: 03/14/2018Patient has a history of thyroid disorder. Sees Dr Champion. Thyroid labs last drawn 02/25/2018. Patient states she is to have them rechecked in 1 month. TKRN Obesity in 03/14/2018 03/28/2018 Overview: 12/19/2018Patient is obese. Will plan on GCt@ NOB. TKRN Excessive weight gain during , antepart um 03/14/2018 03/28/2018 Overview: 03/14/2018 Patient states she had a 70# weight gain last . Discussed good nutrition during and optimal weight gain. Recommended patient see berry picker machine operator to discuss further. Patient will consider. TKRN Patient request for diagnostic testing 9 05/30/2019 Overview: 12/19/2018 Patient desires nuchal ultrasond . Considering genetic carrier screening testing. TKRN TKRN Mold exposure 08/03/2016 03/28/2018 Thyroiditis 03/24/2016 03/28/2018 Angular cheilitis 12/24/2015 03/28/2018 Well adult exam 12/24/2015 03/28/2018 Impaired fasting glucose 10/27/2015 016 Malaise and fatigue 07/23/2015 03/28/2018 Acquired hypothyroidism 01/21/2015 01/24/20 19 Normal , first 11/06/2013 08/11/19 15 Overview: Boy- Ty documented as of this encounter (statuses as of 04/07/2022) [facility]11-07-2019 History of Past illness Narrative* Problem Noted Date Resolved Date History of loss in prior , currently in first trimester 12/19/2018 01/23/2019 Overview: 12/19/2018Patient has a history of partial molar 03/2018. Quant HCG ordered by Dr Velazquez. Ptient denies any bleeding, pain or cramping this . .TKRN Nausea and vomiting in 12/19/2018 05/30/2019 Overview: 12/19/2018Patient is complaining of nausea and occasional vomiting in . Dietary considerations discussed . Vitamin B6 recommended. Advised patient to call/come in if she is unable to keep any food or fluids down in a 24-hour period.TKRN Routine physical examination 08/07/201801/2019 Partial molar 04/05/2018 01/24/20 19 Overview: April 05, 2018 IPAS in office pathology. Follow quants weekly until neg x 3 then monthly x 6 months. Freya Velazquez MD Disorder of thyroid, antepartum 03/14/2018 03/28/2018 Overview: 03/14/2018Patient has a history of thyroid disorder. Sees Dr Champion. Thyroid labs last drawn 02/25/2018. Patient states she is to have them rechecked in 1 month. TKRN Obesity in 03/14/2018 03/28/2018 Overview: 12/19/2018Patient is obese. Will plan on GCt@ NOB. TKRN Excessive weight gain during , antepart um 03/14/2018 03/28/2018 Overview: 03/14/2018 Patient states she had a 70# weight gain last . Discussed good nutrition during and optimal weight gain. Recommended patient see berry picker machine operator to discuss further. Patient will consider. TKRN Patient request for diagnostic testing 9 05/30/2019 Overview: 12/19/2018 Patient desires nuchal ultrasond . Considering genetic carrier screening testing. TKRN TKRN Mold exposure 08/03/2016 03/28/2018 Thyroiditis 03/24/2016 03/28/2018 Angular cheilitis 12/24/2015 03/28/2018 Well adult exam 12/24/2015 03/28/2018 Impaired fasting glucose 10/27/2015 016 Malaise and fatigue 07/23/2015 03/28/2018 Acquired hypothyroidism 01/21/2015 01/24/20 19 Normal , first 11/06/2013 08/11/19 15 Overview: Markus Crawford documented as of this encounter (statuses as of 06/14/2022) [facility]11-[facility]2019 History of Past illness Narrative* Problem Noted Date Resolved Date History of loss in prior , currently in first trimester 12/19/2018 01/23/2019 Overview: 12/19/2018Patient has a history of partial molar 03/2018. Quant HCG ordered by Dr Velazquez. Ptient denies any bleeding, pain or cramping this . .TKRN Nausea and vomiting in 12/19/2018 05/30/2019 Overview: 12/19/2018Patient is complaining of nausea and occasional vomiting in . Dietary considerations discussed . Vitamin B6 recommended. Advised patient to call/come in if she is unable to keep any food or fluids down in a 24-hour period.TKRN Routine physical examination 08/07/201801/2019 Partial molar 04/05/2018 01/24/20 19 Overview: April 05, 2018 IPAS in office pathology. Follow quants weekly until neg x 3 then monthly x 6 months. Freya Velazquez MD Disorder of thyroid, antepartum 03/14/2018 03/28/2018 Overview: 03/14/2018Patient has a history of thyroid disorder. Sees Dr Champion. Thyroid labs last drawn 02/25/2018. Patient states she is to have them rechecked in 1 month. TKRN Obesity in 03/14/2018 03/28/2018 Overview: 12/19/2018Patient is obese. Will plan on GCt@ NOB. TKRN Excessive weight gain during , antepart um 03/14/2018 03/28/2018 Overview: 03/14/2018 Patient states she had a 70# weight gain last . Discussed good nutrition during and optimal weight gain. Recommended patient see berry picker machine operator to discuss further. Patient will consider. TKRN Patient request for diagnostic testing 9 05/30/2019 Overview: 12/19/2018 Patient desires nuchal ultrasond . Considering genetic carrier screening testing. TKRN TKRN Mold exposure 08/03/2016 03/28/2018 Thyroiditis 03/24/2016 03/28/2018 Angular cheilitis 12/24/2015 03/28/2018 Well adult exam 12/24/2015 03/28/2018 Impaired fasting glucose 10/27/2015 016 Malaise and fatigue 07/23/2015 03/28/2018 Acquired hypothyroidism 01/21/2015 01/24/20 19 Normal , first 11/06/2013 08/11/19 15 Overview: Markus Crawford documented as of this encounter (statuses as of 06/26/2022) [facility]11-07-2019 History of Past illness Narrative* Problem Noted Date Resolved Date History of loss in prior , currently in first trimester 12/19/2018 01/23/2019 Overview: 12/19/2018Patient has a history of partial molar 03/2018. Quant HCG ordered by Dr Velazquez. Ptient denies any bleeding, pain or cramping this . .TKRN Nausea and vomiting in 12/19/2018 05/30/2019 Overview: 12/19/2018Patient is complaining of nausea and occasional vomiting in . Dietary considerations discussed . Vitamin B6 recommended. Advised patient to call/come in if she is unable to keep any food or fluids down in a 24-hour period.TKRN Routine physical examination 08/07/201801/2019 Partial molar 04/05/2018 01/24/20 19 Overview: April 05, 2018 IPAS in office pathology. Follow quants weekly until neg x 3 then monthly x 6 months. Freya Velazquez MD Disorder of thyroid, antepartum 03/14/2018 03/28/2018 Overview: 03/14/2018Patient has a history of thyroid disorder. Sees Dr Champion. Thyroid labs last drawn 02/25/2018. Patient states she is to have them rechecked in 1 month. TKRN Obesity in 03/14/2018 03/28/2018 Overview: 12/19/2018Patient is obese. Will plan on GCt@ NOB. TKRN Excessive weight gain during , antepart um 03/14/2018 03/28/2018 Overview: 03/14/2018 Patient states she had a 70# weight gain last . Discussed good nutrition during and optimal weight gain. Recommended patient see berry picker machine operator to discuss further. Patient will consider. TKRN Patient request for diagnostic testing 9 05/30/2019 Overview: 12/19/2018 Patient desires nuchal ultrasond . Considering genetic carrier screening testing. TKRN TKRN Mold exposure 08/03/2016 03/28/2018 Thyroiditis 03/24/2016 03/28/2018 Angular cheilitis 12/24/2015 03/28/2018 Well adult exam 12/24/2015 03/28/2018 Impaired fasting glucose 10/27/2015 016 Malaise and fatigue 07/23/2015 03/28/2018 Acquired hypothyroidism 01/21/2015 01/24/20 19 Normal , first 11/06/2013 08/11/19 15 Overview: Boy- Ty documented as of this encounter (statuses as of 08/08/2022) [facility]2019 History of Past illness Narrative* Problem Noted Date Diagnosed Date Resolved Date History of loss in prior , currently in first trimester 12/19/2018 Overview: 12/19/2018Patient has a history of partial molar 03/2018. Quant HCG ordered by Dr Velazquez. Ptient denies any bleeding, pain or cramping this . .TKRN Nausea and vomiting in 12/19/2018 05/30/2019 Overview: 12/19/2018Patient is complaining of nausea and occasional vomiting in . Dietary considerations discussed . Vitamin B6 recommended. Advised patient to call/come in if she is unable to keep any food or fluids down in a 24-hour period.TKRN Routine physical examination 08/07/2018 01/23/2019 Partial molar 04/05/201801/12 Overview: April 05, 2018 IPAS in office pathology. Follow quants weekly until neg x 3 then monthly x 6 months. Freya Velazquez MD Disorder of thyroid, antepartum 03/14/2018 03/28/2018 Overview: 03/14/2018Patient has a history of thyroid disorder. Sees Dr Champion. Thyroid labs last drawn 02/25/2018. Patient states she is to have them rechecked in 1 month. TKRN Obesity in 03/14/2018 019 Overview: 12/19/2018Patient is obese. Will plan on GCt@ NOB. TKRN Excessive weight gain during , antepartum 03/14/2018 03/28/2018 Overview: 03/14/2018 Patient states she had a 70# weight gain last . Discussed good nutrition during and optimal weight gain. Recommended patient see berry picker machine operator to discuss further. Patient will consider. TKRN Patient request for diagnostic testing 03/14/2018 05/30/2019 Overview: 12/19/2018 Patient desires nuchal ultrasond . Considering genetic carrier screening testing. TKRN TKRN Mold exposure 08/03/2016 03/28/2018 Thyroiditis 03/24/2016 03/28/2018 Angular cheilitis 12/24/2015 03/28/2018 Well adult exam 12/24/2015 03/28/2018 Impaired fasting glucose 10/27/2015 Malaise and fatigue 07/23/2015 03/28/19 19 Acquired hypothyroidism 01/21/201501/12 Normal , first 11/06/201307/14 Overview: Boy- Brayson documented as of this encounter (statuses as of 08/28/2022) [facility]2019 History of Past illness Narrative* Problem Noted Date Diagnosed Date Resolved Date History of loss in prior , currently in first trimester 12/19/2018 Overview: 12/19/2018Patient has a history of partial molar 03/2018. Quant HCG ordered by Dr Velazquez. Ptient denies any bleeding, pain or cramping this . .TKRN Nausea and vomiting in 12/19/2018 05/30/2019 Overview: 12/19/2018Patient is complaining of nausea and occasional vomiting in . Dietary considerations discussed . Vitamin B6 recommended. Advised patient to call/come in if she is unable to keep any food or fluids down in a 24-hour period.TKRN Routine physical examination 08/07/2018 01/23/2019 Partial molar 04/05/201801/12 Overview: April 05, 2018 IPAS in office pathology. Follow quants weekly until neg x 3 then monthly x 6 months. Freya Velazquez MD Disorder of thyroid, antepartum 03/14/2018 03/28/2018 Overview: 03/14/2018Patient has a history of thyroid disorder. Sees Dr Champion. Thyroid labs last drawn 02/25/2018. Patient states she is to have them rechecked in 1 month. TKRN Obesity in 03/14/2018 019 Overview: 12/19/2018Patient is obese. Will plan on GCt@ NOB. TKRN Excessive weight gain during , antepartum 03/14/2018 03/28/2018 Overview: 03/14/2018 Patient states she had a 70# weight gain last . Discussed good nutrition during and optimal weight gain. Recommended patient see berry picker machine operator to discuss further. Patient will consider. TKRN Patient request for diagnostic testing 03/14/2018 05/30/2019 Overview: 12/19/2018 Patient desires nuchal ultrasond . Considering genetic carrier screening testing. TKRN TKRN Mold exposure 08/03/2016 03/28/2018 Thyroiditis 03/24/2016 03/28/2018 Angular cheilitis 12/24/2015 03/28/2018 Well adult exam 12/24/2015 03/28/2018 Impaired fasting glucose 10/27/2015 Malaise and fatigue 07/23/2015 03/28/19 Acquired hypothyroidism 01/21/201501/12 Normal , first 11/06/201307/14 Overview: Markus Crawford documented as of this encounter (statuses as of 09/22/2022) [facility]2019 History of Past illness Narrative* Problem Noted Date Diagnosed Date Resolved Date History of loss in prior , currently in first trimester 12/19/2018 Overview: 12/19/2018Patient has a history of partial molar 03/2018. Quant HCG ordered by Dr Velazquez. Ptient denies any bleeding, pain or cramping this . .TKRN Nausea and vomiting in 12/19/2018 05/30/2019 Overview: 12/19/2018Patient is complaining of nausea and occasional vomiting in . Dietary considerations discussed . Vitamin B6 recommended. Advised patient to call/come in if she is unable to keep any food or fluids down in a 24-hour period.TKRN Routine physical examination 08/07/2018 01/23/2019 Partial molar 04/05/201801/12 Overview: April 05, 2018 IPAS in office pathology. Follow quants weekly until neg x 3 then monthly x 6 months. Freya Velazquez MD Disorder of thyroid, antepartum 03/14/2018 03/28/2018 Overview: 03/14/2018Patient has a history of thyroid disorder. Sees Dr Champion. Thyroid labs last drawn 02/25/2018. Patient states she is to have them rechecked in 1 month. TKRN Obesity in 03/14/2018 019 Overview: 12/19/2018Patient is obese. Will plan on GCt@ NOB. TKRN Excessive weight gain during , antepartum 03/14/2018 03/28/2018 Overview: 03/14/2018 Patient states she had a 70# weight gain last . Discussed good nutrition during and optimal weight gain. Recommended patient see berry picker machine operator to discuss further. Patient will consider. TKRN Patient request for diagnostic testing 03/14/2018 05/30/2019 Overview: 12/19/2018 Patient desires nuchal ultrasond . Considering genetic carrier screening testing. TKRN TKRN Mold exposure 08/03/2016 03/28/2018 Thyroiditis 03/24/2016 03/28/2018 Angular cheilitis 12/24/2015 03/28/2018 Well adult exam 12/24/2015 03/28/2018 Impaired fasting glucose 10/27/2015 Malaise and fatigue 07/23/2015 03/28/19 19 Acquired hypothyroidism 01/21/201501/12 Normal , first 11/06/201307/14 Overview: Markus Crawford documented as of this encounter (statuses as of 09/23/2022) [facility]2019 History of Past illness Narrative* Problem Noted Date Diagnosed Date Resolved Date History of loss in prior , currently in first trimester 12/19/2018 Overview: 12/19/2018Patient has a history of partial molar 03/2018. Quant HCG ordered by Dr Velazquez. Ptient denies any bleeding, pain or cramping this . .TKRN Nausea and vomiting in 12/19/2018 05/30/2019 Overview: 12/19/2018Patient is complaining of nausea and occasional vomiting in . Dietary considerations discussed . Vitamin B6 recommended. Advised patient to call/come in if she is unable to keep any food or fluids down in a 24-hour period.TKRN Routine physical examination 08/07/2018 01/23/2019 Partial molar 04/05/201801/12 Overview: April 05, 2018 IPAS in office pathology. Follow quants weekly until neg x 3 then monthly x 6 months. Freya Velazquez MD Disorder of thyroid, antepartum 03/14/2018 03/28/2018 Overview: 03/14/2018Patient has a history of thyroid disorder. Sees Dr Champion. Thyroid labs last drawn 02/25/2018. Patient states she is to have them rechecked in 1 month. TKRN Obesity in 03/14/2018 019 Overview: 12/19/2018Patient is obese. Will plan on GCt@ NOB. TKRN Excessive weight gain during , antepartum 03/14/2018 03/28/2018 Overview: 03/14/2018 Patient states she had a 70# weight gain last . Discussed good nutrition during and optimal weight gain. Recommended patient see berry picker machine operator to discuss further. Patient will consider. TKRN Patient request for diagnostic testing 03/14/2018 05/30/2019 Overview: 12/19/2018 Patient desires nuchal ultrasond . Considering genetic carrier screening testing. TKRN TKRN Mold exposure 08/03/2016 03/28/2018 Thyroiditis 03/24/2016 03/28/2018 Angular cheilitis 12/24/2015 03/28/2018 Well adult exam 12/24/2015 03/28/2018 Impaired fasting glucose 10/27/2015 Malaise and fatigue 07/23/2015 03/28/19 19 Acquired hypothyroidism 01/21/201501/12 Normal , first 11/06/201307/14 Overview: Cristiano- Ty documented as of this encounter (statuses as of 09/30/2022) [facility] History of Past illness Narrative* Problem Noted Date Diagnosed Date Resolved Date History of loss in prior , currently in first trimester 12/19/2018 Overview: 12/19/2018Patient has a history of partial molar 03/2018. Quant HCG ordered by Dr Velazquez. Ptient denies any bleeding, pain or cramping this . .TKRN Nausea and vomiting in 12/19/2018 05/30/2019 Overview: 12/19/2018Patient is complaining of nausea and occasional vomiting in . Dietary considerations discussed . Vitamin B6 recommended. Advised patient to call/come in if she is unable to keep any food or fluids down in a 24-hour period.TKRN Routine physical examination 08/07/2018 01/23/2019 Partial molar 04/05/201801/12 Overview: April 05, 2018 IPAS in office pathology. Follow quants weekly until neg x 3 then monthly x 6 months. Freya Velazquez MD Disorder of thyroid, antepartum 03/14/2018 03/28/2018 Overview: 03/14/2018Patient has a history of thyroid disorder. Sees Dr Champion. Thyroid labs last drawn 02/25/2018. Patient states she is to have them rechecked in 1 month. TKRN Obesity in 03/14/2018 019 Overview: 12/19/2018Patient is obese. Will plan on GCt@ NOB. TKRN Excessive weight gain during , antepartum 03/14/2018 03/28/2018 Overview: 03/14/2018 Patient states she had a 70# weight gain last . Discussed good nutrition during and optimal weight gain. Recommended patient see berry picker machine operator to discuss further. Patient will consider. TKRN Patient request for diagnostic testing 03/14/2018 05/30/2019 Overview: 12/19/2018 Patient desires nuchal ultrasond . Considering genetic carrier screening testing. TKRN TKRN Mold exposure 08/03/2016 03/28/2018 Thyroiditis 03/24/2016 03/28/2018 Angular cheilitis 12/24/2015 03/28/2018 Well adult exam 12/24/2015 03/28/2018 Impaired fasting glucose 10/27/2015 Malaise and fatigue 07/23/2015 03/28/19 19 Acquired hypothyroidism 01/21/201501/12 Normal , first 11/06/201307/14 Overview: Markus Crawford documented as of this encounter (statuses as of 10/02/2022) [facility] History of Past illness Narrative* Problem Noted Date Diagnosed Date Resolved Date History of loss in prior , currently in first trimester 12/19/2018 Overview: 12/19/2018Patient has a history of partial molar 03/2018. Quant HCG ordered by Dr Velazquez. Ptient denies any bleeding, pain or cramping this . .TKRN Nausea and vomiting in 12/19/2018 05/30/2019 Overview: 12/19/2018Patient is complaining of nausea and occasional vomiting in . Dietary considerations discussed . Vitamin B6 recommended. Advised patient to call/come in if she is unable to keep any food or fluids down in a 24-hour period.TKRN Routine physical examination 08/07/2018 01/23/2019 Partial molar 04/05/201801/12 Overview: April 05, 2018 IPAS in office pathology. Follow quants weekly until neg x 3 then monthly x 6 months. Freya Velazquez MD Disorder of thyroid, antepartum 03/14/2018 03/28/2018 Overview: 03/14/2018Patient has a history of thyroid disorder. Sees Dr Champion. Thyroid labs last drawn 02/25/2018. Patient states she is to have them rechecked in 1 month. TKRN Obesity in 03/14/2018 019 Overview: 12/19/2018Patient is obese. Will plan on GCt@ NOB. TKRN Excessive weight gain during , antepartum 03/14/2018 03/28/2018 Overview: 03/14/2018 Patient states she had a 70# weight gain last . Discussed good nutrition during and optimal weight gain. Recommended patient see berry picker machine operator to discuss further. Patient will consider. TKRN Patient request for diagnostic testing 03/14/2018 05/30/2019 Overview: 12/19/2018 Patient desires nuchal ultrasond . Considering genetic carrier screening testing. TKRN TKRN Mold exposure 08/03/2016 03/28/2018 Thyroiditis 03/24/2016 03/28/2018 Angular cheilitis 12/24/2015 03/28/2018 Well adult exam 12/24/2015 03/28/2018 Impaired fasting glucose 10/27/2015 Malaise and fatigue 07/23/2015 03/28/19 Acquired hypothyroidism 01/21/201501/12 Normal , first 11/06/201307/14 Overview: Markus Crawford documented as of this encounter (statuses as of 10/13/2022) [facility] History of Past illness Narrative* Problem Noted Date Diagnosed Date Resolved Date History of loss in prior , currently in first trimester 12/19/2018 Overview: 12/19/2018Patient has a history of partial molar 03/2018. Quant HCG ordered by Dr Velazquez. Ptient denies any bleeding, pain or cramping this . .TKRN Nausea and vomiting in 12/19/2018 05/30/2019 Overview: 12/19/2018Patient is complaining of nausea and occasional vomiting in . Dietary considerations discussed . Vitamin B6 recommended. Advised patient to call/come in if she is unable to keep any food or fluids down in a 24-hour period.TKRN Routine physical examination 08/07/2018 01/23/2019 Partial molar 04/05/201801/12 Overview: April 05, 2018 IPAS in office pathology. Follow quants weekly until neg x 3 then monthly x 6 months. Freya Velazquez MD Disorder of thyroid, antepartum 03/14/2018 03/28/2018 Overview: 03/14/2018Patient has a history of thyroid disorder. Sees Dr Champion. Thyroid labs last drawn 02/25/2018. Patient states she is to have them rechecked in 1 month. TKRN Obesity in 03/14/2018 019 Overview: 12/19/2018Patient is obese. Will plan on GCt@ NOB. TKRN Excessive weight gain during , antepartum 03/14/2018 03/28/2018 Overview: 03/14/2018 Patient states she had a 70# weight gain last . Discussed good nutrition during and optimal weight gain. Recommended patient see berry picker machine operator to discuss further. Patient will consider. TKRN Patient request for diagnostic testing 03/14/2018 05/30/2019 Overview: 12/19/2018 Patient desires nuchal ultrasond . Considering genetic carrier screening testing. TKRN TKRN Mold exposure 08/03/2016 03/28/2018 Thyroiditis 03/24/2016 03/28/2018 Angular cheilitis 12/24/2015 03/28/2018 Well adult exam 12/24/2015 03/28/2018 Impaired fasting glucose 10/27/2015 Malaise and fatigue 07/23/2015 03/28/19 19 Acquired hypothyroidism 01/21/201501/12 Normal , first 11/06/201307/14 Overview: Boy- Brazeinaon documented as of this encounter (statuses as of 10/13/2022) [facility] History of Past illness Narrative* Problem Noted Date Diagnosed Date Resolved Date History of loss in prior , currently in first trimester 12/19/2018 Overview: 12/19/2018Patient has a history of partial molar 03/2018. Quant HCG ordered by Dr Velazquez. Ptient denies any bleeding, pain or cramping this . .TKRN Nausea and vomiting in 12/19/2018 05/30/2019 Overview: 12/19/2018Patient is complaining of nausea and occasional vomiting in . Dietary considerations discussed . Vitamin B6 recommended. Advised patient to call/come in if she is unable to keep any food or fluids down in a 24-hour period.TKRN Routine physical examination 08/07/2018 01/23/2019 Partial molar 04/05/201801/12 Overview: April 05, 2018 IPAS in office pathology. Follow quants weekly until neg x 3 then monthly x 6 months. Freya Velazquez MD Disorder of thyroid, antepartum 03/14/2018 03/28/2018 Overview: 03/14/2018Patient has a history of thyroid disorder. Sees Dr Champion. Thyroid labs last drawn 02/25/2018. Patient states she is to have them rechecked in 1 month. TKRN Obesity in 03/14/2018 019 Overview: 12/19/2018Patient is obese. Will plan on GCt@ NOB. TKRN Excessive weight gain during , antepartum 03/14/2018 03/28/2018 Overview: 03/14/2018 Patient states she had a 70# weight gain last . Discussed good nutrition during and optimal weight gain. Recommended patient see berry picker machine operator to discuss further. Patient will consider. TKRN Patient request for diagnostic testing 03/14/2018 05/30/2019 Overview: 12/19/2018 Patient desires nuchal ultrasond . Considering genetic carrier screening testing. TKRN TKRN Mold exposure 08/03/2016 03/28/2018 Thyroiditis 03/24/2016 03/28/2018 Angular cheilitis 12/24/2015 03/28/2018 Well adult exam 12/24/2015 03/28/2018 Impaired fasting glucose 10/27/2015 Malaise and fatigue 07/23/2015 03/28/19 19 Acquired hypothyroidism 01/21/201501/12 Normal , first 11/06/201307/14 Overview: Markus Crawford documented as of this encounter (statuses as of 10/23/2022) [facility]11-07-2019 History of Past illness Narrative* Problem Noted Date Diagnosed Date Resolved Date History of loss in prior , currently in first trimester 12/19/2018 Overview: 12/19/2018Patient has a history of partial molar 03/2018. Quant HCG ordered by Dr Velazquez. Ptient denies any bleeding, pain or cramping this . .TKRN Nausea and vomiting in 12/19/2018 05/30/2019 Overview: 12/19/2018Patient is complaining of nausea and occasional vomiting in . Dietary considerations discussed . Vitamin B6 recommended. Advised patient to call/come in if she is unable to keep any food or fluids down in a 24-hour period.TKRN Routine physical examination 08/07/2018 01/23/2019 Partial molar 04/05/201801/12 Overview: April 05, 2018 IPAS in office pathology. Follow quants weekly until neg x 3 then monthly x 6 months. Freya Velazquez MD Disorder of thyroid, antepartum 03/14/2018 03/28/2018 Overview: 03/14/2018Patient has a history of thyroid disorder. Sees Dr Champion. Thyroid labs last drawn 02/25/2018. Patient states she is to have them rechecked in 1 month. TKRN Obesity in 03/14/2018 019 Overview: 12/19/2018Patient is obese. Will plan on GCt@ NOB. TKRN Excessive weight gain during , antepartum 03/14/2018 03/28/2018 Overview: 03/14/2018 Patient states she had a 70# weight gain last . Discussed good nutrition during and optimal weight gain. Recommended patient see berry picker machine operator to discuss further. Patient will consider. TKRN Patient request for diagnostic testing 03/14/2018 05/30/2019 Overview: 12/19/2018 Patient desires nuchal ultrasond . Considering genetic carrier screening testing. TKRN TKRN Mold exposure 08/03/2016 03/28/2018 Thyroiditis 03/24/2016 03/28/2018 Angular cheilitis 12/24/2015 03/28/2018 Well adult exam 12/24/2015 03/28/2018 Impaired fasting glucose 10/27/2015 Malaise and fatigue 07/23/2015 03/28/19 Acquired hypothyroidism 01/21/201501/12 Normal , first 11/06/201307/14 Overview: Boy- Brayson documented as of this encounter (statuses as of 10/26/2022) [facility]2019 History of Past illness Narrative* Problem Noted Date Diagnosed Date Resolved Date History of loss in prior , currently in first trimester 12/19/2018 Overview: 12/19/2018Patient has a history of partial molar 03/2018. Quant HCG ordered by Dr Velazquez. Ptient denies any bleeding, pain or cramping this . .TKRN Nausea and vomiting in 12/19/2018 05/30/2019 Overview: 12/19/2018Patient is complaining of nausea and occasional vomiting in . Dietary considerations discussed . Vitamin B6 recommended. Advised patient to call/come in if she is unable to keep any food or fluids down in a 24-hour period.TKRN Routine physical examination 08/07/2018 01/23/2019 Partial molar 04/05/201801/12 Overview: April 05, 2018 IPAS in office pathology. Follow quants weekly until neg x 3 then monthly x 6 months. Freya Velazquez MD Disorder of thyroid, antepartum 03/14/2018 03/28/2018 Overview: 03/14/2018Patient has a history of thyroid disorder. Sees Dr Champion. Thyroid labs last drawn 02/25/2018. Patient states she is to have them rechecked in 1 month. TKRN Obesity in 03/14/2018 019 Overview: 12/19/2018Patient is obese. Will plan on GCt@ NOB. TKRN Excessive weight gain during , antepartum 03/14/2018 03/28/2018 Overview: 03/14/2018 Patient states she had a 70# weight gain last . Discussed good nutrition during and optimal weight gain. Recommended patient see berry picker machine operator to discuss further. Patient will consider. TKRN Patient request for diagnostic testing 03/14/2018 05/30/2019 Overview: 12/19/2018 Patient desires nuchal ultrasond . Considering genetic carrier screening testing. TKRN TKRN Mold exposure 08/03/2016 03/28/2018 Thyroiditis 03/24/2016 03/28/2018 Angular cheilitis 12/24/2015 03/28/2018 Well adult exam 12/24/2015 03/28/2018 Impaired fasting glucose 10/27/2015 Malaise and fatigue 07/23/2015 03/28/19 19 Acquired hypothyroidism 01/21/201501/12 Normal , first 11/06/201307/14 Overview: Markus Crawford documented as of this encounter (statuses as of 10/31/2022) [facility]2019 History of Past illness Narrative* Problem Noted Date Diagnosed Date Resolved Date History of loss in prior , currently in first trimester 12/19/2018 Overview: 12/19/2018Patient has a history of partial molar 03/2018. Quant HCG ordered by Dr Velazquez. Ptient denies any bleeding, pain or cramping this . .TKRN Nausea and vomiting in 12/19/2018 05/30/2019 Overview: 12/19/2018Patient is complaining of nausea and occasional vomiting in . Dietary considerations discussed . Vitamin B6 recommended. Advised patient to call/come in if she is unable to keep any food or fluids down in a 24-hour period.TKRN Routine physical examination 08/07/2018 01/23/2019 Partial molar 04/05/201801/12 Overview: April 05, 2018 IPAS in office pathology. Follow quants weekly until neg x 3 then monthly x 6 months. Freya Velazquez MD Disorder of thyroid, antepartum 03/14/2018 03/28/2018 Overview: 03/14/2018Patient has a history of thyroid disorder. Sees Dr Champion. Thyroid labs last drawn 02/25/2018. Patient states she is to have them rechecked in 1 month. TKRN Obesity in 03/14/2018 019 Overview: 12/19/2018Patient is obese. Will plan on GCt@ NOB. TKRN Excessive weight gain during , antepartum 03/14/2018 03/28/2018 Overview: 03/14/2018 Patient states she had a 70# weight gain last . Discussed good nutrition during and optimal weight gain. Recommended patient see berry picker machine operator to discuss further. Patient will consider. TKRN Patient request for diagnostic testing 03/14/2018 05/30/2019 Overview: 12/19/2018 Patient desires nuchal ultrasond . Considering genetic carrier screening testing. TKRN TKRN Mold exposure 08/03/2016 03/28/2018 Thyroiditis 03/24/2016 03/28/2018 Angular cheilitis 12/24/2015 03/28/2018 Well adult exam 12/24/2015 03/28/2018 Impaired fasting glucose 10/27/2015 Malaise and fatigue 07/23/2015 03/28/19 19 Acquired hypothyroidism 01/21/201501/12 Normal , first 11/06/201307/14 Overview: Markus Crawford documented as of this encounter (statuses as of 11/02/2022) [facility]11-[facility]-2019 History of Past illness Narrative* Problem Noted Date Diagnosed Date Resolved Date History of loss in prior , currently in first trimester 12/19/2018 Overview: 12/19/2018Patient has a history of partial molar 03/2018. Quant HCG ordered by Dr Velazquez. Ptient denies any bleeding, pain or cramping this . .TKRN Nausea and vomiting in 12/19/2018 05/30/2019 Overview: 12/19/2018Patient is complaining of nausea and occasional vomiting in . Dietary considerations discussed . Vitamin B6 recommended. Advised patient to call/come in if she is unable to keep any food or fluids down in a 24-hour period.TKRN Routine physical examination 08/07/2018 01/23/2019 Partial molar 04/05/201801/12 Overview: April 05, 2018 IPAS in office pathology. Follow quants weekly until neg x 3 then monthly x 6 months. Freya Velazquez MD Disorder of thyroid, antepartum 03/14/2018 03/28/2018 Overview: 03/14/2018Patient has a history of thyroid disorder. Sees Dr Champion. Thyroid labs last drawn 02/25/2018. Patient states she is to have them rechecked in 1 month. TKRN Obesity in 03/14/2018 019 Overview: 12/19/2018Patient is obese. Will plan on GCt@ NOB. TKRN Excessive weight gain during , antepartum 03/14/2018 03/28/2018 Overview: 03/14/2018 Patient states she had a 70# weight gain last . Discussed good nutrition during and optimal weight gain. Recommended patient see berry picker machine operator to discuss further. Patient will consider. TKRN Patient request for diagnostic testing 03/14/2018 05/30/2019 Overview: 12/19/2018 Patient desires nuchal ultrasond . Considering genetic carrier screening testing. TKRN TKRN Mold exposure 08/03/2016 03/28/2018 Thyroiditis 03/24/2016 03/28/2018 Angular cheilitis 12/24/2015 03/28/2018 Well adult exam 12/24/2015 03/28/2018 Impaired fasting glucose 10/27/2015 Malaise and fatigue 07/23/2015 03/28/19 Acquired hypothyroidism 01/21/201501/12 Normal , first 11/06/201307/14 Overview: Markus Crawford documented as of this encounter (statuses as of 12/26/2022) [facility]11-07-2019 History of Past illness Narrative* Problem Noted Date Diagnosed Date Resolved Date History of loss in prior , currently in first trimester 12/19/2018 Overview: 12/19/2018Patient has a history of partial molar 03/2018. Quant HCG ordered by Dr Velazquez. Ptient denies any bleeding, pain or cramping this . .TKRN Nausea and vomiting in 12/19/2018 05/30/2019 Overview: 12/19/2018Patient is complaining of nausea and occasional vomiting in . Dietary considerations discussed . Vitamin B6 recommended. Advised patient to call/come in if she is unable to keep any food or fluids down in a 24-hour period.TKRN Routine physical examination 08/07/2018 01/23/2019 Partial molar 04/05/201801/12 Overview: April 05, 2018 IPAS in office pathology. Follow quants weekly until neg x 3 then monthly x 6 months. Freya Velazquez MD Disorder of thyroid, antepartum 03/14/2018 03/28/2018 Overview: 03/14/2018Patient has a history of thyroid disorder. Sees Dr Champion. Thyroid labs last drawn 02/25/2018. Patient states she is to have them rechecked in 1 month. TKRN Obesity in 03/14/2018 019 Overview: 12/19/2018Patient is obese. Will plan on GCt@ NOB. TKRN Excessive weight gain during , antepartum 03/14/2018 03/28/2018 Overview: 03/14/2018 Patient states she had a 70# weight gain last . Discussed good nutrition during and optimal weight gain. Recommended patient see berry picker machine operator to discuss further. Patient will consider. TKRN Patient request for diagnostic testing 03/14/2018 05/30/2019 Overview: 12/19/2018 Patient desires nuchal ultrasond . Considering genetic carrier screening testing. TKRN TKRN Mold exposure 08/03/2016 03/28/2018 Thyroiditis 03/24/2016 03/28/2018 Angular cheilitis 12/24/2015 03/28/2018 Well adult exam 12/24/2015 03/28/2018 Impaired fasting glucose 10/27/2015 Malaise and fatigue 07/23/2015 03/28/19 Acquired hypothyroidism 01/21/201501/12 Normal , first 11/06/201307/14 Overview: Boy- Ty documented as of this encounter (statuses as of 03/22/2023) [facility]11-07-2019 History of Past illness Narrative* Problem Noted Date Diagnosed Date Resolved Date History of loss in prior , currently in first trimester 12/19/2018 Overview: 12/19/2018Patient has a history of partial molar 03/2018. Quant HCG ordered by Dr Velazquez. Ptient denies any bleeding, pain or cramping this . .TKRN Nausea and vomiting in 12/19/2018 05/30/2019 Overview: 12/19/2018Patient is complaining of nausea and occasional vomiting in . Dietary considerations discussed . Vitamin B6 recommended. Advised patient to call/come in if she is unable to keep any food or fluids down in a 24-hour period.TKRN Routine physical examination 08/07/2018 01/23/2019 Partial molar 04/05/201801/12 Overview: April 05, 2018 IPAS in office pathology. Follow quants weekly until neg x 3 then monthly x 6 months. Freya Velazquez MD Disorder of thyroid, antepartum 03/14/2018 03/28/2018 Overview: 03/14/2018Patient has a history of thyroid disorder. Sees Dr Champion. Thyroid labs last drawn 02/25/2018. Patient states she is to have them rechecked in 1 month. TKRN Obesity in 03/14/2018 019 Overview: 12/19/2018Patient is obese. Will plan on GCt@ NOB. TKRN Excessive weight gain during , antepartum 03/14/2018 03/28/2018 Overview: 03/14/2018 Patient states she had a 70# weight gain last . Discussed good nutrition during and optimal weight gain. Recommended patient see berry picker machine operator to discuss further. Patient will consider. TKRN Patient request for diagnostic testing 03/14/2018 05/30/2019 Overview: 12/19/2018 Patient desires nuchal ultrasond . Considering genetic carrier screening testing. TKRN TKRN Mold exposure 08/03/2016 03/28/2018 Thyroiditis 03/24/2016 03/28/2018 Angular cheilitis 12/24/2015 03/28/2018 Well adult exam 12/24/2015 03/28/2018 Impaired fasting glucose 10/27/2015 Malaise and fatigue 07/23/2015 03/28/19 19 Acquired hypothyroidism 01/21/201501/12 Normal , first 11/06/201307/14 Overview: Boy- Brayson documented as of this encounter (statuses as of 04/02/2023) [facility] History of Past illness Narrative* Problem Noted Date Diagnosed Date Resolved Date History of loss in prior , currently in first trimester 12/19/2018 Overview: 12/19/2018Patient has a history of partial molar 03/2018. Quant HCG ordered by Dr Velazquez. Ptient denies any bleeding, pain or cramping this . .TKRN Nausea and vomiting in 12/19/2018 05/30/2019 Overview: 12/19/2018Patient is complaining of nausea and occasional vomiting in . Dietary considerations discussed . Vitamin B6 recommended. Advised patient to call/come in if she is unable to keep any food or fluids down in a 24-hour period.TKRN Routine physical examination 08/07/2018 01/23/2019 Partial molar 04/05/201801/12 Overview: April 05, 2018 IPAS in office pathology. Follow quants weekly until neg x 3 then monthly x 6 months. Freya Velazquez MD Disorder of thyroid, antepartum 03/14/2018 03/28/2018 Overview: 03/14/2018Patient has a history of thyroid disorder. Sees Dr Champion. Thyroid labs last drawn 02/25/2018. Patient states she is to have them rechecked in 1 month. TKRN Obesity in 03/14/2018 019 Overview: 12/19/2018Patient is obese. Will plan on GCt@ NOB. TKRN Excessive weight gain during , antepartum 03/14/2018 03/28/2018 Overview: 03/14/2018 Patient states she had a 70# weight gain last . Discussed good nutrition during and optimal weight gain. Recommended patient see berry picker machine operator to discuss further. Patient will consider. TKRN Patient request for diagnostic testing 03/14/2018 05/30/2019 Overview: 12/19/2018 Patient desires nuchal ultrasond . Considering genetic carrier screening testing. TKRN TKRN Mold exposure 08/03/2016 03/28/2018 Thyroiditis 03/24/2016 03/28/2018 Angular cheilitis 12/24/2015 03/28/2018 Well adult exam 12/24/2015 03/28/2018 Impaired fasting glucose 10/27/2015 Malaise and fatigue 07/23/2015 03/28/19 19 Acquired hypothyroidism 01/21/201501/12 Normal , first 11/06/201307/14 Overview: Boy- Aleciaon documented as of this encounter (statuses as of 04/06/2023) [facility] note* Diagnosis Wellness examination- Primary Acquired hypothyroidism Unspecified hypothyroidism documented in this encounter [facility] note* Diagnosis Acquired hypothyroidism Unspecified hypothyroidism documented in this encounter [facility] note* Diagnosis Acquired hypothyroidism Unspecified hypothyroidism documented in this encounter [facility] note* Diagnosis Acquired hypothyroidism Unspecified hypothyroidism documented in this encounter [facility] note* Diagnosis Wellness examination- Primary Acquired hypothyroidism Unspecified hypothyroidism documented in this encounter [facility] note* Diagnosis Acquired hypothyroidism Unspecified hypothyroidism documented in this encounter [facility] note* Diagnosis Cat scratch of forearm, left, initial encounter- Primary documented in this encounter [facility] note* Diagnosis Acquired hypothyroidism Unspecified hypothyroidism documented in this encounter [facility] note* Diagnosis Wellness examination- Primary Acquired hypothyroidism Unspecified hypothyroidism documented in this encounter [facility] note* Diagnosis Acquired hypothyroidism Unspecified hypothyroidism documented in this encounter [facility] note* Diagnosis Wellness examination- Primary documented in this encounter [facility] note* Diagnosis Acquired hypothyroidism Unspecified hypothyroidism documented in this encounter [facility] note* Diagnosis Wellness examination- Primary Acquired hypothyroidism Unspecified hypothyroidism Class 2 obesity with body mass index (BMI) of 37.0 to 37.9 in adult, unspecified obesity type, unspecified whether serious comorbidity present documented in this encounter [facility] note* Diagnosis Acquired hypothyroidism- Primary Unspecified hypothyroidism Leukocytosis, unspecified type documented in this encounter [facility] note* Diagnosis Class 2 obesity with body mass index (BMI) of 37.0 to 37.9 in adult, unspecified obesity type, unspecified whether serious comorbidity present- Primary documented in this encounter [facility] note* Diagnosis Acquired hypothyroidism- Primary Unspecified hypothyroidism documented in this encounter [facility] note* Diagnosis Acquired hypothyroidism Unspecified hypothyroidism documented in this encounter [facility] note* Diagnosis Class 2 obesity with body mass index (BMI) of 37.0 to 37.9 in adult, unspecified obesity type, unspecified whether serious comorbidity present documented in this encounter [facility] note* Diagnosis Hypothyroidism, acquired- Primary Unspecified hypothyroidism documented in this encounter [facility] note* Diagnosis High-risk , multigravida of advanced maternal age, antepartum (HCC)- Primary Twin gestation in first trimester, unspecified multiple gestation type (HCC) 7 weeks gestation of ([facility]) state, incidental with uncertain dates in first trimester ([facility]) Screen for STD (sexually transmitted disease) Screening examination for venereal disease Screening for cervical cancer Screening for malignant neoplasm of the cervix Special screening examination for human papillomavirus (HPV) documented in this encounter [facility] note* Diagnosis Hypothyroidism, acquired- Primary Unspecified hypothyroidism documented in this encounter [facility] note* Diagnosis Twin with single intrauterine , first trimester, fetus 1 (HCC)- Primary 13 weeks gestation of ([facility]) state, incidental Obesity affecting in second trimester, unspecified obesity type ([facility]) documented in this encounter [facility] note* Diagnosis screening for malformation using ultrasonics ([facility])- Primary Encounter for routine screening for malformation using ultrasonics Obesity affecting in second trimester, unspecified obesity type (HCC) Twin with single intrauterine , first trimester, fetus 1 (HCC) 16 weeks gestation of ([facility]) state, incidental documented in this encounter [facility] note* Diagnosis Supervision of high risk in second trimester (HCC)- Primary Unspecified high-risk 16 weeks gestation of ([facility]) state, incidental Twin with single intrauterine , first trimester, fetus 1 (HCC) Obesity affecting in second trimester, unspecified obesity type (HCC) AMA (advanced maternal age) multigravida 35+, second trimester (HCC) Hypothyroidism affecting in second trimester ([facility]) documented in this encounter [facility] note* Diagnosis Wellness examination- Primary Screening for depression Encounter for screening examination for other mental health and behavioral disorders Acquired hypothyroidism Unspecified hypothyroidism 20 weeks gestation of (HCC) state, incidental [facility] Diagnosis Family history of congenital heart defect- Primary Family history of congenital anomalies with uncertain dates in first trimester ([facility]) High-risk , multigravida of advanced maternal age, antepartum (HCC) 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 ([facility]) Class 2 obesity without serious comorbidity with body mass index (BMI) of 37.0 to 37.9 in adult, unspecified obesity type [facility] Diagnosis Twin with single intrauterine , first trimester, fetus 1 (HCC)- Primary 20 weeks gestation of ([facility]) state, incidental Supervision of high risk in second trimester ([facility]) Unspecified high-risk AMA (advanced maternal age) multigravida 35+, second trimester ([facility]) Obesity affecting in second trimester, unspecified obesity type ([facility]) High-risk , multigravida of advanced maternal age, antepartum ([facility]) [facility]* Diagnosis Hypothyroidism, acquired- Primary Unspecified hypothyroidism [facility]* Diagnosis Supervision of high risk in second trimester ([facility])- Primary Unspecified high-risk 28 weeks gestation of ([facility]) state, incidental Twin with single intrauterine , first trimester, fetus 1 (HCC) AMA (advanced maternal age) multigravida 35+, second trimester ([facility]) Obesity affecting in second trimester, unspecified obesity type ([facility]) Hypothyroidism affecting in second trimester ([facility]) Rh negative state in antepartum period ([facility]) Rhesus isoimmunization affecting management of mother, antepartum condition High-risk , multigravida of advanced maternal age, antepartum ([facility]) documented in this encounter [facility] note* Diagnosis High-risk , multigravida of advanced maternal age, antepartum ([facility]) 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 ([facility]) Class 2 obesity without serious comorbidity with body mass index (BMI) of 37.0 to 37.9 in adult, unspecified obesity type [facility]* Diagnosis Acquired hypothyroidism- Primary Unspecified hypothyroidism documented in this encounter [facility] Diagnosis 30 weeks gestation of ([facility])- Primary state, incidental Supervision of high risk in second trimester (HCC) Unspecified high-risk Twin with single intrauterine , first trimester, fetus 1 (HCC) AMA (advanced maternal age) multigravida 35+, second trimester (HCC) Obesity affecting in second trimester, unspecified obesity type (HCC) documented in this encounter [facility] Reason for Referral Specialty Diagnoses / Procedures Referred By Judy cordero Referred To Contact Diagnoses Class 2 obesity with body mass index (BMI) of 37.0 to 37.9 in adult, unspecified obesity type, unspecified whether serious comorbidity present Miguelito Champion, [address] [place] [address] Referral ID Status Reason Start Date Expiration Date Visits Re quested Visits Authorized [id number] Closed 12/19/2023 02/17/2024 1 1 Summary Purpose Family History No Family History Records FoundNo Family History Records Found Advance Directives No Advanced Directives Records FoundNo Advanced Directives Records Found Additional Source Comments Source Comments (unrecognize d section and content) In the event this informatio n is protected by the Federal Confidentiality of Alcohol and Drug Abuse Patient Records regulations: The Federal rules restrict any use of the information to criminally investigate or prosecute any alcohol or drug abuse patient.[facility]In the event this information is protected by the Federal Confidentiality of Alcohol and Drug Abuse Patient Records regulations: The Federal rules restrict any use of the information to criminally investigate or prosecute any alcohol or drug abuse patient.[facility] HospitalIn the event this information is protected by the Federal Confidentiality of Alcohol and Drug Abuse Patient Records regulations: The Federal rules restrict any use of the information to criminally investigate or prosecute any alcohol or drug abuse patient.[facility] HospitalIn the event this information is protected by the Federal Confidentiality of Alcohol and Drug Abuse Patient Records regulations: The Federal rules restrict any use of the information to criminally investigate or prosecute any alcohol or drug abuse patient.[facility] HospitalIn the event this information is protected by the Federal Confidentiality of Alcohol and Drug Abuse Patient Records regulations: The Federal rules restrict any use of the information to criminally investigate or prosecute any alcohol or drug abuse patient.[facility] HospitalIn the event this information is protected by the Federal Confidentiality of Alcohol and Drug Abuse Patient Records regulations: The Federal rules restrict any use of the information to criminally investigate or prosecute any alcohol or drug abuse patient.[facility] HospitalIn the event this information is protected by the Federal Confidentiality of Alcohol and Drug Abuse Patient Records regulations: The Federal rules restrict any use of the information to criminally investigate or prosecute any alcohol or drug abuse patient.[facility] HospitalIn the event this information is protected by the Federal Confidentiality of Alcohol and Drug Abuse Patient Records regulations: The Federal rules restrict any use of the information to criminally investigate or prosecute any alcohol or drug abuse patient.[facility] HospitalIn the event this information is protected by the Federal Confidentiality of Alcohol and Drug Abuse Patient Records regulations: The Federal rules restrict any use of the information to criminally investigate or prosecute any alcohol or drug abuse patient.[facility] HospitalIn the event this information is protected by the Federal Confidentiality of Alcohol and Drug Abuse Patient Records regulations: The Federal rules restrict any use of the information to criminally investigate or prosecute any alcohol or drug abuse patient.[facility] HospitalIn the event this information is protected by the Federal Confidentiality of Alcohol and Drug Abuse Patient Records regulations: The Federal rules restrict any use of the information to criminally investigate or prosecute any alcohol or drug abuse patient.[facility] HospitalIn the event this information is protected by the Federal Confidentiality of Alcohol and Drug Abuse Patient Records regulations: The Federal rules restrict any use of the information to criminally investigate or prosecute any alcohol or drug abuse patient.[facility] HospitalIn the event this information is protected by the Federal Confidentiality of Alcohol and Drug Abuse Patient Records regulations: The Federal rules restrict any use of the information to criminally investigate or prosecute any alcohol or drug abuse patient.[facility] HospitalIn the event this information is protected by the Federal Confidentiality of Alcohol and Drug Abuse Patient Records regulations: The Federal rules restrict any use of the information to criminally investigate or prosecute any alcohol or drug abuse patient.[facility] HospitalIn the event this information is protected by the Federal Confidentiality of Alcohol and Drug Abuse Patient Records regulations: The Federal rules restrict any use of the information to criminally investigate or prosecute any alcohol or drug abuse patient.[facility] HospitalIn the event this information is protected by the Federal Confidentiality of Alcohol and Drug Abuse Patient Records regulations: The Federal rules restrict any use of the information to criminally investigate or prosecute any alcohol or drug abuse patient.[facility] HospitalIn the event this information is protected by the Federal Confidentiality of Alcohol and Drug Abuse Patient Records regulations: The Federal rules restrict any use of the information to criminally investigate or prosecute any alcohol or drug abuse patient.[facility] HospitalIn the event this information is protected by the Federal Confidentiality of Alcohol and Drug Abuse Patient Records regulations: The Federal rules restrict any use of the information to criminally investigate or prosecute any alcohol or drug abuse patient.[facility] HospitalIn the event this information is protected by the Federal Confidentiality of Alcohol and Drug Abuse Patient Records regulations: The Federal rules restrict any use of the information to criminally investigate or prosecute any alcohol or drug abuse patient.[facility] HospitalIn the event this information is protected by the Federal Confidentiality of Alcohol and Drug Abuse Patient Records regulations: The Federal rules restrict any use of the information to criminally investigate or prosecute any alcohol or drug abuse patient.[facility] HospitalIn the event this information is protected by the Federal Confidentiality of Alcohol and Drug Abuse Patient Records regulations: The Federal rules restrict any use of the information to criminally investigate or prosecute any alcohol or drug abuse patient.[facility] HospitalIn the event this information is protected by the Federal Confidentiality of Alcohol and Drug Abuse Patient Records regulations: The Federal rules restrict any use of the information to criminally investigate or prosecute any alcohol or drug abuse patient.[facility] HospitalIn the event this information is protected by the Federal Confidentiality of Alcohol and Drug Abuse Patient Records regulations: The Federal rules restrict any use of the information to criminally investigate or prosecute any alcohol or drug abuse patient.[facility] HospitalIn the event this information is protected by the Federal Confidentiality of Alcohol and Drug Abuse Patient Records regulations: The Federal rules restrict any use of the information to criminally investigate or prosecute any alcohol or drug abuse patient.[facility] HospitalIn the event this information is protected by the Federal Confidentiality of Alcohol and Drug Abuse Patient Records regulations: The Federal rules restrict any use of the information to criminally investigate or prosecute any alcohol or drug abuse patient.[facility] HospitalIn the event this information is protected by the Federal Confidentiality of Alcohol and Drug Abuse Patient Records regulations: The Federal rules restrict any use of the information to criminally investigate or prosecute any alcohol or drug abuse patient.[facility] HospitalIn the event this information is protected by the Federal Confidentiality of Alcohol and Drug Abuse Patient Records regulations: The Federal rules restrict any use of the information to criminally investigate or prosecute any alcohol or drug abuse patient.[facility] HospitalIn the event this information is protected by the Federal Confidentiality of Alcohol and Drug Abuse Patient Records regulations: The Federal rules restrict any use of the information to criminally investigate or prosecute any alcohol or drug abuse patient.[facility] HospitalIn the event this information is protected by the Federal Confidentiality of Alcohol and Drug Abuse Patient Records regulations: The Federal rules restrict any use of the information to criminally investigate or prosecute any alcohol or drug abuse patient.[facility] HospitalIn the event this information is protected by the Federal Confidentiality of Alcohol and Drug Abuse Patient Records regulations: The Federal rules restrict any use of the information to criminally investigate or prosecute any alcohol or drug abuse patient.[facility] HospitalIn the event this information is protected by the Federal Confidentiality of Alcohol and Drug Abuse Patient Records regulations: The Federal rules restrict any use of the information to criminally investigate or prosecute any alcohol or drug abuse patient.[facility] HospitalIn the event this information is protected by the Federal Confidentiality of Alcohol and Drug Abuse Patient Records regulations: The Federal rules restrict any use of the information to criminally investigate or prosecute any alcohol or drug abuse patient.[facility] HospitalIn the event this information is protected by the Federal Confidentiality of Alcohol and Drug Abuse Patient Records regulations: The Federal rules restrict any use of the information to criminally investigate or prosecute any alcohol or drug abuse patient.[facility] HospitalIn the event this information is protected by the Federal Confidentiality of Alcohol and Drug Abuse Patient Records regulations: The Federal rules restrict any use of the information to criminally investigate or prosecute any alcohol or drug abuse patient.[facility] HospitalIn the event this information is protected by the Federal Confidentiality of Alcohol and Drug Abuse Patient Records regulations: The Federal rules restrict any use of the information to criminally investigate or prosecute any alcohol or drug abuse patient.[facility] HospitalIn the event this information is protected by the Federal Confidentiality of Alcohol and Drug Abuse Patient Records regulations: The Federal rules restrict any use of the information to criminally investigate or prosecute any alcohol or drug abuse patient.[facility] HospitalIn the event this information is protected by the Federal Confidentiality of Alcohol and Drug Abuse Patient Records regulations: The Federal rules restrict any use of the information to criminally investigate or prosecute any alcohol or drug abuse patient.[facility] HospitalIn the event this information is protected by the Federal Confidentiality of Alcohol and Drug Abuse Patient Records regulations: The Federal rules restrict any use of the information to criminally investigate or prosecute any alcohol or drug abuse patient.[facility] HospitalIn the event this information is protected by the Federal Confidentiality of Alcohol and Drug Abuse Patient Records regulations: The Federal rules restrict any use of the information to criminally investigate or prosecute any alcohol or drug abuse patient.[facility] HospitalIn the event this information is protected by the Federal Confidentiality of Alcohol and Drug Abuse Patient Records regulations: The Federal rules restrict any use of the information to criminally investigate or prosecute any alcohol or drug abuse patient.[facility] HospitalIn the event this information is protected by the Federal Confidentiality of Alcohol and Drug Abuse Patient Records regulations: The Federal rules restrict any use of the information to criminally investigate or prosecute any alcohol or drug abuse patient.[facility] HospitalIn the event this information is protected by the Federal Confidentiality of Alcohol and Drug Abuse Patient Records regulations: The Federal rules restrict any use of the information to criminally investigate or prosecute any alcohol or drug abuse patient.[facility] HospitalIn the event this information is protected by the Federal Confidentiality of Alcohol and Drug Abuse Patient Records regulations: The Federal rules restrict any use of the information to criminally investigate or prosecute any alcohol or drug abuse patient.[facility] HospitalIn the event this information is protected by the Federal Confidentiality of Alcohol and Drug Abuse Patient Records regulations: The Federal rules restrict any use of the information to criminally investigate or prosecute any alcohol or drug abuse patient.[facility] HospitalIn the event this information is protected by the Federal Confidentiality of Alcohol and Drug Abuse Patient Records regulations: The Federal rules restrict any use of the information to criminally investigate or prosecute any alcohol or drug abuse patient.[facility] HospitalIn the event this information is protected by the Federal Confidentiality of Alcohol and Drug Abuse Patient Records regulations: The Federal rules restrict any use of the information to criminally investigate or prosecute any alcohol or drug abuse patient.[facility] HospitalIn the event this information is protected by the Federal Confidentiality of Alcohol and Drug Abuse Patient Records regulations: The Federal rules restrict any use of the information to criminally investigate or prosecute any alcohol or drug abuse patient.[facility] HospitalIn the event this information is protected by the Federal Confidentiality of Alcohol and Drug Abuse Patient Records regulations: The Federal rules restrict any use of the information to criminally investigate or prosecute any alcohol or drug abuse patient.[facility] HospitalIn the event this information is protected by the Federal Confidentiality of Alcohol and Drug Abuse Patient Records regulations: The Federal rules restrict any use of the information to criminally investigate or prosecute any alcohol or drug abuse patient.[facility] HospitalIn the event this information is protected by the Federal Confidentiality of Alcohol and Drug Abuse Patient Records regulations: The Federal rules restrict any use of the information to criminally investigate or prosecute any alcohol or drug abuse patient.[facility] HospitalIn the event this information is protected by the Federal Confidentiality of Alcohol and Drug Abuse Patient Records regulations: The Federal rules restrict any use of the information to criminally investigate or prosecute any alcohol or drug abuse patient.[facility] HospitalIn the event this information is protected by the Federal Confidentiality of Alcohol and Drug Abuse Patient Records regulations: The Federal rules restrict any use of the information to criminally investigate or prosecute any alcohol or drug abuse patient.[facility] HospitalIn the event this information is protected by the Federal Confidentiality of Alcohol and Drug Abuse Patient Records regulations: The Federal rules restrict any use of the information to criminally investigate or prosecute any alcohol or drug abuse patient.[facility] HospitalIn the event this information is protected by the Federal Confidentiality of Alcohol and Drug Abuse Patient Records regulations: The Federal rules restrict any use of the information to criminally investigate or prosecute any alcohol or drug abuse patient.[facility] HospitalIn the event this information is protected by the Federal Confidentiality of Alcohol and Drug Abuse Patient Records regulations: The Federal rules restrict any use of the information to criminally investigate or prosecute any alcohol or drug abuse patient.[facility] HospitalIn the event this information is protected by the Federal Confidentiality of Alcohol and Drug Abuse Patient Records regulations: The Federal rules restrict any use of the information to criminally investigate or prosecute any alcohol or drug abuse patient.[facility] HospitalIn the event this information is protected by the Federal Confidentiality of Alcohol and Drug Abuse Patient Records regulations: The Federal rules restrict any use of the information to criminally investigate or prosecute any alcohol or drug abuse patient.[facility] HospitalIn the event this information is protected by the Federal Confidentiality of Alcohol and Drug Abuse Patient Records regulations: The Federal rules restrict any use of the information to criminally investigate or prosecute any alcohol or drug abuse patient.[facility] HospitalIn the event this information is protected by the Federal Confidentiality of Alcohol and Drug Abuse Patient Records regulations: The Federal rules restrict any use of the information to criminally investigate or prosecute any alcohol or drug abuse patient.[facility] HospitalIn the event this information is protected by the Federal Confidentiality of Alcohol and Drug Abuse Patient Records regulations: The Federal rules restrict any use of the information to criminally investigate or prosecute any alcohol or drug abuse patient.[facility] HospitalIn the event this information is protected by the Federal Confidentiality of Alcohol and Drug Abuse Patient Records regulations: The Federal rules restrict any use of the information to criminally investigate or prosecute any alcohol or drug abuse patient.[facility] HospitalIn the event this information is protected by the Federal Confidentiality of Alcohol and Drug Abuse Patient Records regulations: The Federal rules restrict any use of the information to criminally investigate or prosecute any alcohol or drug abuse patient.[facility] HospitalIn the event this information is protected by the Federal Confidentiality of Alcohol and Drug Abuse Patient Records regulations: The Federal rules restrict any use of the information to criminally investigate or prosecute any alcohol or drug abuse patient.[facility] HospitalIn the event this information is protected by the Federal Confidentiality of Alcohol and Drug Abuse Patient Records regulations: The Federal rules restrict any use of the information to criminally investigate or prosecute any alcohol or drug abuse patient.[facility] HospitalIn the event this information is protected by the Federal Confidentiality of Alcohol and Drug Abuse Patient Records regulations: The Federal rules restrict any use of the information to criminally investigate or prosecute any alcohol or drug abuse patient.[facility] HospitalIn the event this information is protected by the Federal Confidentiality of Alcohol and Drug Abuse Patient Records regulations: The Federal rules restrict any use of the information to criminally investigate or prosecute any alcohol or drug abuse patient.[facility] HospitalIn the event this information is protected by the Federal Confidentiality of Alcohol and Drug Abuse Patient Records regulations: The Federal rules restrict any use of the information to criminally investigate or prosecute any alcohol or drug abuse patient.[facility] HospitalIn the event this information is protected by the Federal Confidentiality of Alcohol and Drug Abuse Patient Records regulations: The Federal rules restrict any use of the information to criminally investigate or prosecute any alcohol or drug abuse patient.[facility] Reason for Visit (unrecogniz ed section and content) Reason Onset Date Comments Refill Request 04/29/2021 Reason Onset Date Comments Refill Request 05/03/2021 Reason Comments Results Reason Onset Date Comments Refill Request 05/21/2021 Reason Onset Date Comments Refill Request 06/13/2021 Reason Comments Yearly Exam Specialty Diagnoses / Procedures Referred By Contac t Referred To Contact Family Practice / FAMILY MEDICINE Diagnoses Yearly physical Procedures OFFICE/OUTPATIENT ESTABLISHED MOD MDM 30-39 MIN MYC PHYSICAL Miguelito Champion, DO [address] [place] [address] Miguelito Champion, DO [address] [place] [address] Referral ID Status Reason Start Date Expiration Date Visits Re quested Visits Authorized [id number] Closed 02/12/2021 02/11/2022 1 1 Reason Onset Date Comments Refill Request 12/09/2021 Reason Comments Trauma cat scratch left for earm x 1 day Reason Comments Physical Reason Comments Med Change Request Reason Comments Medication Problem Reason Comments Thyroid Problem Reason Comments Patient Question Reason Onset Date Comments Refill Request 03/31/2023 Reason Comments Medication Request Reason Comments Results thyroid Reason Onset Date Comments Refill Request 04/23/2024 Reason Comments Question (OB Question) Reason Comments Question Reason Comments Initial OB Visit Reason Comments Results Reason Comments Refill Request Reason Comments Appointment Orders Reason Comments US Specialty Diagnoses / Procedures Referred By Contac t [facility] Diagnoses Twin with single intrauterine , first trimester, fetus 1 (HCC) 13 weeks gestation of (HCC) Obesity affecting in second trimester, unspecified obesity type (HCC) Procedures OBSTETRIC ULTRASOUND WHI US PREG UTERUS AFTER 1ST TRIMEST GESTATION Kristen Smith MD [address] [place] [address] Phone: tel: fax:[phone] [facility] [address] [place] [address] Referral ID Status Reason Start Date Expiration Date V isits Requested Visits Authorized [id number] Closed Auto-Generate d Referral 07/08/2024 07/08/2025 1 1 Reason Onset Date Comments Care 07/25/2024 Reason Comments US Specialty Diagnoses / Procedures Referred By Contac t Referred To Contact [facility] Diagnoses with uncertain dates in first trimester (HCC) Procedures OBSTETRIC ULTRASOUND WHI US PREG UTERUS AFTER 1ST TRIMEST GESTATION Shiloh Westfall, GROUTER HELPER.CLINICAL THERAPIST [address] [place] [address] Phone: tel: fax: [address] [phone] Referral ID Status Reason Start Date Expiration Date V isits Requested Visits Authorized [id number] Closed Auto-Generate d Referral 05/23/2024 05/23/2025 1 1 Reason Onset Date Comments Care 08/22/2024 Reason Onset Date Comments Care 10/15/2024 Specialty Diagnoses / Procedures Referred By Contac t Referred To Contact [facility] Diagnoses High-risk , multigravida of advanced maternal age, antepartum ([facility]) 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 ([facility]) Class 2 obesity without serious comorbidity with body mass index (BMI) of 37.0 to 37.9 in adult, unspecified obesity type Procedures OBSTETRIC ULTRASOUND WHI US PREG UTERUS AFTER 1ST TRIMEST GESTATION Jossie Gonzales MD [address] [place] [address] Phone: tel: fax: [address] [phone] Referral ID Status Reason Start Date Expiration Date V isits Requested Visits Authorized [id number] Closed Auto-Generate d Referral 08/25/2024 08/25/2025 1 1 Reason Onset Date Comments Refill Request 10/11/2024 Reason Onset Date Comments Care 10/29/2024 Reason Comments Breast Pump RX Care Teams (unrecognized sec tion and content) Resident Physician Relationship Specialty Start Date End Date Miguelito Champion DO [address] [place] [address] PCP - General Family Practice 11/26/15 Resident Physician Relationship Specialty Start Date End Date Miguelito Champion, DO [address] [place] [address] PCP - General Family Practice 11/26/15 Resident Physician Relationship Specialty Start Date End Date Miguelito Champion, DO [address] [place] [address] PCP - General Family Practice 11/26/15 Resident Physician Relationship Specialty Start Date End Date Miguelito Champion, DO [address] [place] [address] PCP - General Family Practice 11/26/15 Resident Physician Relationship Specialty Start Date End Date Miguelito Champion, DO [address] [place] [address] PCP - General Family Practice 11/26/15 Resident Physician Relationship Specialty Start Date End Date Miguelito Champion, DO [address] [place] [address] PCP - General Family Practice 11/26/15 Resident Physician Relationship Specialty Start Date End Date Miguelito Champion, DO [address] [place] [address] PCP - General Family Medicine 11/26/15 Resident Physician Relationship Specialty Start Date End Date Miguelito Champion, DO [address] [place] [address] PCP - General Family Medicine 11/26/15 Resident Physician Relationship Specialty Start Date End Date Miguelito Champion, DO [address] [place] [address] PCP - General Family Medicine 11/26/15 Resident Physician Relationship Specialty Start Date End Date Miguelito Champion DO [address] [facility] [address] PCP - General Family Medicine 11/26/15 Resident Physician Relationship Specialty Start Date End Date Miguelito Champion DO [address] [facility] [address] PCP - General Family Medicine 11/26/15 Resident Physician Relationship Specialty Start Date End Date Miguelito Champion, DO [address] [facility] [address] PCP - General Family Medicine 11/26/15 Resident Physician Relationship Specialty Start Date End Date Miguelito Champion DO [address] [facility] [address] PCP - General Family Medicine 11/26/15 Resident Physician Relationship Specialty Start Date End Date Miguelito Champion DO [address] [facility] [address] PCP - General Family Medicine 11/26/15 Resident Physician Relationship Specialty Start Date End Date Miguelito Champion DO [address] [facility] [address] PCP - General Family Medicine 11/26/15 Resident Physician Relationship Specialty Start Date End Date Miguelito Champion DO [address] [facility] [address] PCP - General Family Medicine 11/26/15 Resident Physician Relationship Specialty Start Date End Date Miguelito Champion, DO [address] [facility] [address] PCP - General Family Medicine 11/26/15 Resident Physician Relationship Specialty Start Date End Date Miguelito Champion DO [address] [facility] [place] [place] [address] PCP - General Family Medicine 11/26/15 Resident Physician Relationship Specialty Start Date End Date Miguelito Champion DO [address] [facility] [place] [place] [address] PCP - General Family Medicine 11/26/15 Resident Physician Relationship Specialty Start Date End Date Miguelito Champion DO [address] [place] [address] PCP - General Family Medicine 11/26/15 Resident Physician Relationship Specialty Start Date End Date Miguelito Champion DO [address] [facility] [place] [address] PCP - General Family Medicine 11/26/15 Resident Physician Relationship Specialty Start Date End Date Miguelito Champion DO [address] [place] [address] PCP - General Family Medicine 11/26/15 Resident Physician Relationship Specialty Start Date End Date Miguelito Champion DO [address] [place] [address] PCP - General Family Medicine 11/26/15 Resident Physician Relationship Specialty Start Date End Date Miguelito Champion DO [address] [place] [address] PCP - General Family Medicine 11/26/15 Karen Azar APRN.CLINICAL THERAPIST [address] [place] [address] Dog Behaviorist Family Medicine 01/20/24 [facility], GROUTER HELPER.CLINICAL THERAPIST [address] [place] [address] [facility] 01/20/24 Resident Physician Relationship Specialty Start Date End Date Miguelito Champion DO [address] [facility] [place] [address] PCP - General Family Medicine 11/26/15 Karen Azar, GROUTER HELPER.CLINICAL THERAPIST [address] [facility] [place] [address] [facility] 01/20/24 [facility] Humberto, GROUTER HELPER.CLINICAL THERAPIST [address] [facility] [place] [address] [facility] 01/20/24 Resident Physician Relationship Specialty Start Date End Date Miguelito Champion DO [address] [facility] [place] [address] PCP - General Family Medicine 11/26/15 Karen Azar, GROUTER HELPER.CLINICAL THERAPIST [address] [place] [address] [facility] 01/20/24 [facility], GROUTER HELPER.CLINICAL THERAPIST [address] [facility] [place] [address] [facility] 01/20/24 Resident Physician Relationship Specialty Start Date End Date Miguelito Champion DO [address] [facility] [place] [address] PCP - General Family Medicine 11/26/15 Karen Azar, GROUTER HELPER.CLINICAL THERAPIST [address] [facility] [place] [address] Dog Behaviorist Family [facility] 01/20/24 Humberto Goldman, GROUTER HELPER.CLINICAL THERAPIST [address] [place] [address] Dog Behaviorist Family [facility] 01/20/24 Resident Physician Relationship Specialty Start Date End Date Miguelito Champion DO [address] [facility] [place] [address] PCP - General Family Medicine 11/26/15 Karen Azar, GROUTER HELPER.CLINICAL THERAPIST [address] [facility] [place] [address] Dog Behaviorist [facility] 01/20/24 Humberto Goldman, GROUTER HELPER.CLINICAL THERAPIST [address] [facility] [place] [address] [facility] 01/20/24 Resident Physician Relationship Specialty Start Date End Date Miguelito Champion DO [address] [place] [address] PCP - General Family Medicine 11/26/15 Karen Azar, GROUTER HELPER.CLINICAL THERAPIST [address] [facility] [place] [address] Dog Behaviorist [facility] 01/20/24 Humberto Goldman, GROUTER HELPER.CLINICAL THERAPIST [address] [facility] [place] [address] Dog Behaviorist Family [facility] 01/20/24 Resident Physician Relationship Specialty Start Date End Date Miguelito Champion DO [address] [place] [address] PCP - General Family Medicine 11/26/15 Humberto Goldman, GROUTER HELPER.CLINICAL THERAPIST [address] [place] [address] Dog Behaviorist Family Medicine 01/20/24 Resident Physician Relationship Specialty Start Date End Date Miguelito Champion DO [address] [place] [address] PCP - General Family Medicine 11/26/15 Humberto Goldman, GROUTER HELPER.CLINICAL THERAPIST [address] [place] [address] Dog Behaviorist Family Medicine 01/20/24 Resident Physician Relationship Specialty Start Date End Date Miguelito Champion DO [address] [place] [address] PCP - General Family Medicine 11/26/15 Humberto Goldman, GROUTER HELPER.CLINICAL THERAPIST [address] [place] [address] Dog Behaviorist Family Medicine 01/20/24 Resident Physician Relationship Specialty Start Date End Date Miguelito Champion DO [address] [place] [address] PCP - General Family Medicine 11/26/15 Humberto Goldman, GROUTER HELPER.CLINICAL THERAPIST [address] [place] [address] Dog Behaviorist Family [facility] 01/20/24 Resident Physician Relationship Specialty Start Date End Date Miguelito Champion DO [address] [place] [address] PCP - General Family Medicine 11/26/15 Humberto Goldman, GROUTER HELPER.CLINICAL THERAPIST [address] [place] [address] Dog Behaviorist Family Medicine 01/20/24 Resident Physician Relationship Specialty Start Date End Date Miguelito Champion DO [address] [place] [address] PCP - General Family Medicine 11/26/15 Humberto Goldman, GROUTER HELPER.CLINICAL THERAPIST [address] [place] [address] Dog Behaviorist Family [facility] 01/20/24 Resident Physician Relationship Specialty Start Date End Date Miguelito Champion DO [address] [place] [address] PCP - General Family Medicine 11/26/15 Humberto Goldman, GROUTER HELPER.CLINICAL THERAPIST [address] [place] [address] Dog Behaviorist Family [facility] 01/20/24 Resident Physician Relationship Specialty Start Date End Date Miguelito Champion DO [address] [place] [address] PCP - General Family Medicine 11/26/15 Humberto Goldman, GROUTER HELPER.CLINICAL THERAPIST [address] [place] [address] Dog Behaviorist Family [facility] 01/20/24 Resident Physician Relationship Specialty Start Date End Date Miguelito Champion DO [address] [place] [address] PCP - General Family Medicine 11/26/15 Humberto Goldman, GROUTER HELPER.CLINICAL THERAPIST [address] [place] [address] Dog Behaviorist Family Medicine 01/20/24 Resident Physician Relationship Specialty Start Date End Date Miguelito Champion DO [address] [place] [address] PCP - General Family Medicine 11/26/15 Humberto Goldman, GROUTER HELPER.CLINICAL THERAPIST [address] [place] [address] Dog Behaviorist Family Medicine 01/20/24 Kendal Oro, GROUTER HELPER.CLINICAL THERAPIST [address] [place] [address] [facility] 07/28/24 Resident Physician Relationship Specialty Start Date End Date Miguelito Champion DO [address] [place] [address] PCP - General Family Medicine 11/26/15 Humberto Goldman, GROUTER HELPER.CLINICAL THERAPIST [address] [place] [address] Dog Behaviorist Family Medicine 01/20/24 Kendal Oro, GROUTER HELPER.CLINICAL THERAPIST [address] [place] [address] [facility] Family Medicine 07/28/24 Resident Physician Relationship Specialty Start Date End Date Miguelito Champion DO [address] [place] [address] PCP - General Family Medicine 11/26/15 [facility] GROUTER HELPER.CLINICAL THERAPIST [address] [facility] [address] Dog Behaviorist Family Medicine 01/20/24 Kendal Oro, GROUTER HELPER.CLINICAL THERAPIST [address] [place] [address] [facility] Resident Physician Relationship Specialty Start Date End Date Miguelito Champion DO [address] [place] [address] PCP - General Family Medicine 11/26/15 [facility], GROUTER HELPER.CLINICAL THERAPIST [address] [place] [address] [facility] 01/20/24 Kendal Oro, GROUTER HELPER.CLINICAL THERAPIST [address] [place] [address] [facility] 07/28/24 Resident Physician Relationship Specialty Start Date End Date Miguelito Champion DO [address] [place] [address] PCP - General Family Medicine 11/26/15 [facility], GROUTER HELPER.CLINICAL THERAPIST [address] [place] [address] [facility] 01/20/24 Kendal Oro, GROUTER HELPER.CLINICAL THERAPIST [address] [place] [address] [facility] 07/28/24 Resident Physician Relationship Specialty Start Date End Date Miguelito Champion DO [address] [facility] [address] PCP - General Family Medicine 11/26/15 Humberto Goldman, GROUTER HELPER.CLINICAL THERAPIST [address] [facility] [address] Dog Behaviorist Family Medicine 01/20/24 Kendal Oro, GROUTER HELPER.CLINICAL THERAPIST [address] [place] [address] Dog Behaviorist Family Medicine 07/28/24 Resident Physician Relationship Specialty Start Date End Date Miguelito Champion DO [address] [facility] [address] PCP - General Family Medicine 11/26/15 Humberto Goldman, GROUTER HELPER.CLINICAL THERAPIST [address] [facility] [address] Dog Behaviorist Family Medicine 01/20/24 Kendal Oro, GROUTER HELPER.CLINICAL THERAPIST [address] [place] [address] Dog Behaviorist Family Medicine 07/28/24 Resident Physician Relationship Specialty Start Date End Date Miguelito Champion DO [address] [facility] [address] PCP - General Family Medicine 11/26/15 Humberto Goldman, GROUTER HELPER.CLINICAL THERAPIST [address] [facility] [address] Dog Behaviorist Family Medicine 01/20/24 Kendal Oro, GROUTER HELPER.CLINICAL THERAPIST [address] [place], [place] [address] [facility] 07/28/24 Resident Physician Relationship Specialty Start Date End Date Miguelito Champion DO [address] [place] [employer], [place] [address] PCP - General Family Medicine 11/26/15 Humberto Goldman APRN.CLINICAL THERAPIST [address] [place] [employer], [place] [address] [facility] 01/20/24 Kendal Oro, PAULINE.CLINICAL THERAPIST [address] [place], [place] [address] [facility] 07/28/24 INFORMATION SOURCE (unrecogn ized section and content) DATE CREATED AUTHOR 11/29/2024 [facility] DATE CREATED AUTHOR AUTHOR'S ORGANIZ ATION 12/20/2024 [facility] FOR RECORDS PERTAINING TO PATIENTS WHO ARE OR HAVE BEEN ENROLLED IN A CHEMICAL DEPENDENCY/SUBSTANCEABUSE PROGRAM, SOME INFORMATION MAY BE OMITTED. This clinical summary was aggregated from multiple sources. Caution should be exercised in using it in the provision of clinical care. This summary normalizes information from multiple sources, and as a consequence, information in this document may materially change the coding, format and clinical context of patient data. In addition, data may be omitted in some cases. CLINICAL DECISIONS SHOULD BE BASED ON THE PRIMARY CLINICAL RECORDS. [employer] provides no warranty or guarantee of the accuracy or completeness of information in this document.
[2024-12-23 22:35] VITALS: BMI 40.1
[2024-12-23 22:47] VITALS: BP 113/70; PULSE 96; RESP 16; TEMP 36.8; O2SAT 92
[2024-12-23 22:48] VITALS: PULSE 99; O2SAT 95
--- NOTE | 2024-12-26 11:39 | OB.TRI.NOTE ---
HPI - General General Date of Service: 12/23/24 HPI Narrative CECILIO HAYES, is a 34 F @ 37.6 weeks- r/o labor PFSH PFSH Home Medications Medication Instructions Recorded Last Taken Type vits,calcium no.78-iron 1 tab PO DAILY pergnancy 06/24/14 12/22/24 20:00 History fumarate-folic acid 29 mg-1 mg 1 TAB tablet (Prenatabs FA) aspirin 81 mg chewable tablet 81 mg PO DAILY pre-e prevention 07/08/19 12/22/24 20:00 History 81 mg thyroid (pork) 120 mg tablet 120 mg PO DAILY 07/08/19 12/23/24 08:00 History 120 mg Allergy/AdvReac Type Severity Reaction Status Date / Time latex Allergy Rash Verified 12/23/24 22:52 venom-honey bee (bee venom Allergy Swelling Verified 12/23/24 22:52 (honey bee)) Surgical History (Updated 07/08/19 @ 01:[address] 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
== END 2024-12-23 23:23 | disposition home or self-care (01) ==
LOC: WPOUT 22:31 → WP 22:31
PROVIDERS: PCP Student in an Organized Health Care Education/Training Program; Referring Provider Advanced Practice Midwife; Visit Provider Advanced Practice Midwife
DX: O47.1 False labor at or after 37 completed weeks of gestation (principal); Z3A.37 37 weeks gestation of pregnancy
CPT/HCPCS: 59025; 59050; 99221; G0378

== ENCOUNTER 2025-01-01 05:15 | Inpatient (IN) | payer OTHER, SELFPAY ==
--- OUTSIDE RECORDS SUMMARY | 2024-12-31 22:01 | XMS RPT_ITS | CCD ---
Author Organization [facility] Care Team Providers Care Beta Tester Name Role Phone Miguelito Champion DO Primary Care Provider [phone] Miguelito Champion DO Primary Care Provider Azar CANE LOADER.[employer] SHEETS SUPERVISORKaren Unavailable Manju CANE LOADER.M[employer] SHEETS SUPERVISORHumberto Unavailable [phone] Shorty CANE LOADER.M[employer] MA[employer] PLAST[employer] SHEETS SUPERVISORKendal Unavailable Denae Renteria Referring Unavailable Champion, Miguelito Primary Care Unavailable Denae Renteria Attending Unavailable Wiswell, Joe Admitting Unavailable Wiswell, Joe Attending Unavailable Vedawell, Joe Referring Unavailable Champion, Miguelito Primary Care Unavailable CHAMPION, MIGUELITO L Primary Care Unavailable KAREN AZAR Referring Unavailabl e CHAMPION, MIGUELITO L Primary Care Unavailable KAREN AZAR Referring Unavailabl e CHAMPION, MIGUELITO L Primary Care Unavailable KHOI, SHILOH Attending Unavailable CHAMPION, MIGUELITO L Primary Care Unavailable CHAMPION, MIGUELITO L Referring Unavailable CHAMPION, MIGUELITO L Primary Care Unavailable CHAMPION, MIGUELITO L Referring Unavailable CHAMPION, MIGUELITO L Primary Care Unavailable LONI, KRISTEN Referring Unavailable CHAMPION, MIGUELITO L Primary Care Unavailable LONI, KRISTEN Referring Unavailable DENAE RENTERIA Attending Unavailable CHAMPION, MIGUELITO Harshal Primary Care Unavailable KHOI, SHILOH Referring Unavailable WISWELL, JOE Attending Unavailable CHAMPION, MIGUELITO L Primary Care Unavailable KHOI, SHILOH Referring Unavailable CHAMPION, MIGUELITO L Primary Care Unavailable April, Referring Unavailable KRISTEN SMITH Attending Unavailable CHAMPION, MIGUELITO L Primary Care Unavailable ANGELA, JOE Referring Unavailable CHAMPION, MIGUELITO L Primary Care Unavailable April, Referring Unavailable FREYA VELAZQUEZ Attending Unavailable CHAMPION, MIGUELITO L Primary Care Unavailable APRIL, JOSSIE Referring Unavailable CHAMPION, MIGUELITO L Primary Care Unavailable KRISTEN SMITH Attending Unavailable CHAMPION, MIGUELITO L Primary Care Unavailable APRIL, JOSSIE Referring Unavailable CHAMPION, MIGUELITO L Primary Care Unavailable APRIL, JOSSIE Referring Unavailable WISWELL, JOE Attending Unavailable CHAMPION, MIGUELITO L Primary Care Unavailable CHAMPION, MIGUELITO L Referring Unavailable CHAMPION, MIGUELITO L Primary Care Unavailable WISWELL, JOE Attending Unavailable CHAMPION, MIGUELITO L Primary Care Unavailable APRIL, JOSSIE Referring Unavailable CHAMPION, MIGUELITO L Primary Care Unavailable APRIL, JOSSIE Referring Unavailable WISWELL, JOE Attending Unavailable CHAMPION, MIGUELITO L Primary Care Unavailable CHAMPION, MIGUELITO L Referring Unavailable CHAMPION, MIGUELITO L Primary Care Unavailable WISWELL, JOE Referring Unavailable CHAMPION, MIGUELITO L Primary Care Unavailable KRISTEN SMITH Attending Unavailable CHAMPION, MIGUELITO L Primary Care Unavailable CHAMPION, MIGUELITO L Referring Unavailable CHAMPION, MIGUELITO L Primary Care Unavailable APRIL, JOSSIE Referring Unavailable CHAMPION, MIGUELITO L Primary Care Unavailable KHOI, SHILOH Referring Unavailable CHAMPION, MIGUELITO L Primary Care Unavailable KHOI, SHILOH Referring Unavailable CHAMPION, MIGUELITO L Primary Care Unavailable KHOI, SHILOH Referring Unavailable WISWELL, JOE Attending Unavailable CHAMPION, MIGUELITO L Primary Care Unavailable CHAMPION, MIGUELITO L Referring Unavailable LAUREN MADERA Attending Unavailable CHAMPION, MIGUELITO L Primary Care Unavailable APRIL, JOSSIE Referring Unavailable CHAMPION, MIGUELITO L Primary Care Unavailable CHAMPION, MIGUELITO L Attending Unavailable Allergies Allergy Classification Reported Allergen(s) Allergy Type Date of Onset Reaction(s) Facility Latex (1 source) Latex Substance Allergy 9 [facility] (20 sources) Latex; Translations: [LATEX] Propensity to adverse reactions 9 [facility] Work Phone: (20 sources) Bees; Translations: [BEES] Propensity to adverse reactions 9 [facility] Work Phone: (1 source) Latex Drug allergy (disorder) 5 [facility] (1 source) venom-honey bee Drug allergy (disorder) 5 [facility] Medications Current Medications Medication Drug Class(es) [...] Comment on above: Take 1 capsule by [facility] three times daily for 7 days. cetirizine hydrochloride 10 mg oral tablet (20 sources) Histamine-1 Receptor Antagonist Start: 06-13-19 24 cetirizine (ZYRTEC) 10 mg tablet 06/13/2023 Active [...] capsules by mouth once daily. Active thyroid (half-way) 120 mg oral tablet (20 sources) Start: 10-16-2024 thyroid (DATA OFFICER THYROID) 120 mg tablet Take 1 tablet PO 3 days a week and 2 tablets PO 4 days a week 90 tablet 3 10/16/2024 Active Start: 08-23-2024 End: 10-11-2024 thyroid (DATA OFFICER THYROID) 120 mg tablet Take 1 tablet PO 3 days a week and 2 tablets PO 4 days a week 08/23/2024 10/11/2024 Discontinued Start: 07-15-2024 End: 08-23-2024 thyroid (DATA OFFICER THYROID) 120 mg tablet Take 1 tablet PO 4 days a week and 2 tablets PO 3 days a week 07/15/2024 08/23/2024 Discontinued Start: 05-26-2024 End: 07-15-2024 thyroid (DATA OFFICER THYROID) 120 mg tablet Take 1 tablet PO 5 days a week and 2 tablets PO 2 days a week 140 tablet 3 05/26/2024 07/15/2024 Discontinued Start: 04-02-2023 End: 05-26-2024 take 2 tablets by mouth once daily DATA OFFICER THYROID 60 mg tablet Indications: Acquired hypothyroidism TAKE 2 TABLETS BY MOUTH EVERY DAY 180 tablet 3 04/14/2024 05/26/2024 Discontinued Start: 09-25-2022 End: 03-31-2023 take 2 tablets by mouth once daily DATA OFFICER THYROID 60 mg tablet Indications: Acquired hypothyroidism TAKE 2 TABLETS BY MOUTH EVERY DAY 60 tablet 3 10/13/2022 03/31/2023 Discontinued Start: 07-05-2022 End: 09-25-2022 DATA OFFICER THYROID 60 mg tablet Silvia cations: Acquired hypothyroidism Take 1 tablet 2 days a week and 2 tablets 5 days a week 144 tablet 3 07/05/2022 09/25/2022 Discontinued Start: 07-08-2021 End: 07-05-2022 DATA OFFICER THYROID 60 mg tablet Silvia cations: Acquired hypothyroidism Take 1 tablet 4 days a week and 2 tablets 3 days a week 120 tablet 2 12/09/2021 07/05/2022 Discontinued Start: 05-04-2022 DATA OFFICER THYROID 60 mg Indications: Acquired hypothyroidism Take 1 tablet 5 days a week and 2 tablets 2 days a week 108 tablet 1 06/15/2021 Active Start: 05-23-2021 End: 06-13-2021 DATA OFFICER THYROID 60 mg Indications : Acquired hypothyroidism Take 1 tablet 5 days a week and 2 tablets 2 days a week 108 tablet 1 05/23/2021 06/13/2021 Discontinued Start: 05-18-2021 End: 05-21-2021 DATA OFFICER THYROID 60 mg Indications : Acquired hypothyroidism Take 1 tablet 5 days a week and 2 tablets 2 days a week 34 tablet 0 05/18/2021 05/21/2021 Discontinued Start: 05-02-2021 End: 05-18-2021 DATA OFFICER THYROID 60 mg Indications : Acquired hypothyroidism Take 1 tablet 1 days a week and 2 tablets 6 days a week 28 tablet 0 05/04/2021 05/18/2021 Discontinued Start: 01-14-2020 End: 04-29-2021 DATA OFFICER THYROID 60 mg Indications : Acquired hypothyroidism [...] tablets daily . TAKE 2 TABLETS BY [facility] EVERY DAY Completed/Discontinued Medications Medication [...] Take 100 mg by mouth once daily. [id number] 0.3 ml EPINEPHrine 1 mg/ml auto-injector (20 [...] 4.5 mg by mouth daily at bedtime. Enpxcxfu-Up-Rsy-Fe-F A ( VITAMIN) tab (9 sources) take 1 tablet by mouth once Cwfesemp-Xn-Imu-Fe -FA ( VITAMIN) tab Take 1 tablet by mouth. 0 Active Comment on above: Take 1 tablet by yadira th. Mqimzhqr-Qp-Tgo-Fe-F A tab (4 sources) End: 08-04-2022 take 1 tablet by mouth once Xeiopzmd-Be-Hjv-Fe -FA tab Take 1 tablet by mouth. 08/04/2022 Discontinued (Course of therapy completed) End: 08-04-2022 take 1 tablet by mouth once Bbawjqyh-Lc-Jff-Fe-FA tab Take 1 tablet by mouth. 0 08/04/2022 Discontinued (Course of therapy completed) take 1 tablet by yadira th once Ncqgtqxu-Gv-Ttn-Fe-FA tab Take 1 tablet by mouth. 0 [...] third trimester, unspecified obesity type (HCC)] Onset: 12-18-2024 Chronic Other complications of (1 source) Obesity complicating , second trimester; Translations: [Obesity affecting in second trimester, unspecified obesity type (HCC)] Onset: 07-25-2024 Chronic Other complications of (20 sources) High [...] age) multigravida 35+, third trimester (HCC)] Onset: 12-18-2024 Episodic Other nutritional; endocrine; and metabolic disorders (1 source) Body mass index (BMI) 37.0-37.9, adult; Translations: [Class 2 obesity without serious comorbidity with body mass index (BMI) of 37.0 to 37.9 in adult, unspecified obesity type] Onset: 07-21-2023 Chronic Other screening for suspected conditions (not mental disorders or infectious disease) (3 sources) Cancer cervix screening status; Translations: [Encounter for screening for malignant neoplasm of cervix] Onset: 07-04-2024 05-23-2024 Episodic Residual codes; unclassified (2 sources) [...] 10-29-2024 Episodic Residual codes; unclassified (1 source) 36 weeks gestation of ; Translations: [36 weeks gestation of (HCC)] Onset: 12-25-2024 Episodic Residual codes; unclassified (1 source) 38 weeks gestation of ; Translations: [38 weeks gestation of (HCC)] Onset: 12-25-2024 Episodic Residual codes; unclassified (1 source) 37 weeks gestation of ; Translations: [37 weeks gestation of (HCC)] Onset: 12-18-2024 Episodic Residual codes; unclassified (1 source) 34 weeks gestation of ; Translations: [34 weeks gestation of (HCC)] Onset: 11-27-2024 Episodic Residual codes; unclassified (1 source) 30 weeks gestation of ; Translations: [30 weeks gestation of (HCC)] Onset: 10-29-2024 Episodic Residual codes; unclassified (1 source) 24 weeks gestation of ; Translations: [24 weeks gestation of (HCC)] Onset: 10-15-2024 Episodic Residual codes; unclassified (1 source) 28 [...] antepartum period (HCC)] Onset: 12-19-2018 Episodic Other complications of (1 source) Supervision of high risk , unspecified, second trimester; Translations: [Supervision of high risk in second trimester ([facility])] Onset: 07-25-2024 Episodic Other complications of (1 source) Supervision of elderly multigravida, second trimester; Translations: [AMA (advanced maternal age) multigravida 35+, second trimester ([facility])] Onset: 07-25-2024 Episodic Other complications of (1 source) Endocrine, nutritional and metabolic diseases complicating , second trimester; Translations: [Hypothyroidism affecting in second trimester (HCC)] Onset: 12-19-2018 Episodic Other and delivery including normal (20 sources) Dichorionic diamniotic twin ; Translations: [Twin , dichorionic/diamnioti c, first trimester] Onset: 11-06-2013 Resolved: 08-10-2014 01-23-2019 Episodic Postabortion complications (20 sources) Partial hydatidiform [...] 12-19-2018 Episodic Residual codes; unclassified (1 source) 20 weeks gestation of ; Translations: [20 weeks gestation of (HCC)] Onset: 08-23-2024 Episodic Residual codes; unclassified (1 source) 16 weeks gestation of ; Translations: [16 weeks gestation of (HCC)] Onset: 07-25-2024 Episodic Residual codes; unclassified (1 source) 13 weeks gestation of ; Translations: [13 weeks gestation of (HCC)] Onset: 07-25-2024 Episodic Residual codes; unclassified (1 source) Less than 8 weeks gestation of ; Translations: [7 weeks gestation of (HCC)] Onset: 06-05-2024 Episodic Screening and history of mental health and substance abuse codes (2 sources) Encounter for screening for depression; Translations: [Encounter for screening examination for other mental health and behavioral disorders] Onset: 08-23-2024 Episodic Results Test Name Value Interpretation Reference Range Facil ity CNPRaysa 12-16-2024 CNPN Telephone ([facility]) TEJALNENA ARGUELLO ([id number]) 1990 F Date Time Provider Department 12/16/24 MIGUELITO CHAMPIONWS During your visit today, we recorded the following information about you: Miguelito Champion DO 12/16/2024 11:20 AM Signed Pleas inform patient that her free t4 is still low but slightly improved, TSH is improving. Make sure she is taking her DATA OFFICER thyroid correctly. I know she is getting closer to delivery date. Can try to take 2 extra tablets a week such as extra on Mon and Wed each week of her DATA OFFICER thyroid DO Natasha Skelton Susan LPN 12/16/2024 11:24 AM Signed Pt. informed via My chart Allergies As of Date: 12/16/2024 Noted Allergy Reaction BEES 07/07/2008 7 - Swelling LATEX 07/07/2008 4 - Hives Date Reviewed: 12/11/2024 Reviewed by: Tasha Carias MA - Fully Assessed Prescriptions as of 12/16/2024 - thyroid (DATA OFFICER THYROID) 120 mg tablet Take 1 tablet [...] by LISA LEÓN LPN on 12/16/24 Normal [facility] ROUTINE, GROUP B ST REPTOCOCCUS BY PCRon 12-11-2024 ROUTINE, GROUP B STREPTOCOCCUS BY PCR Not detected Normal [facility] Comment on above: Performed By: #### 7 3752-8, 5195-3, 69040-0 #### [facility] CLIA [id number] [address] [place] [address] [place] T4 Free SerPl-mCncon 025 Free T4 [Mass/Vol] 0.8 ng/dL Low 0.9-1.7 [facility] Comment on above: Order Comment: Speci men Type: BLOOD SPECIMEN Ordering Facility: [facility] Address: [address] [place] [address] Performed By: #### 3 024-7, 3053-6, 3016-3 #### [facility] CLIA [id number] [address] [place] [address] [place] TSH SerPl-aCncon 12-11-2024 TSH Qn 0.335 m[IU]/L Normal 0.270-4.200 [facility] Comment on above: Order Comment: Selam walsh Type: BLOOD SPECIMEN Ordering Facility: [facility] Address: [address] [place] [address] Result Comment: If t he patient is , TSH reference range varies by gestational period: First Trimester (weeks 9-12): 0.180-2.990 mIU/L Second Trimester: 0.110-3.980 mIU/L Third Trimester: 0.480-4.710 mIU/L Homer Caputo et al. A Practical Approach for the Verifications and Determination of Site- and Trimester-Specific Reference Intervals for Thyroid Function tests in . Thyroid, 2019:29:3:412-420. Moose E, et al. 2017 Guidelines of the [place] Thyroid Association for the Diagnosis and Management of Thyroid Disease during and the . Thyroid, 2017:27:3:315-389. Performed By: #### 3 024-7, 3053-6, 3016-3 #### [facility] CLIA [id number] [address] [place] [address] [place] CNPNon 11-13-2024 CNPN Telephone ([facility]) NENA LEIVA ([id number]) 1990 F Date Time Provider Department 11/13/24 [facility] During your visit today, we recorded [...] 11:06 AM Signed Notified of below via Giggzo. Glo Smith MA Allergies As of Date: 11/13/2024 Noted Allergy Reaction BEES 07/07/2008 7 - Swelling LATEX 07/07/2008 4 - Hives Date Reviewed: 11/12/2024 Reviewed by: Freya Velazquez MD - Fully Assessed Reason for Visit: Patient Question [1477] Primary Visit Diagnosis:Multinodular goiter [E04.2] Order(s):THYROID STIMULATING HORMONE [SQTSH] Order #: [id number] FUTURE T4 FREE/FREE THYROXINE [SQFT4] Order #: [id number] FUTURE Prescriptions as of 11/18/2024 - thyroid (DATA OFFICER THYROID) 120 mg tablet Take 1 tablet [...] Status:Closed by GLO SMITH on 11/18/24 Normal [facility] T4 Free SerPl-chavo 025 Free T4 [Mass/Vol] 0.7 ng/dL Low 0.9-1.7 [facility] Comment on above: Order Comment: Speci men Type: BLOOD SPECIMEN Ordering Facility: [facility] Address: [address] [place] [address] Performed By: #### 7 3752-8, 5195-3, 66838-4 #### [facility] CLIA [id number] [address] [place] [address] [place] [address] [place] TSH SerPl-aCncon 11-12-2024 TSH Qn 1.580 m[IU]/L Normal 0.270-4.200 [facility] Comment on above: Order Comment: Speci men Type: BLOOD SPECIMEN Ordering Facility: [facility] Address: [address] [place] [address] Result Comment: If t he patient is , TSH reference range varies by gestational period: First Trimester (weeks 9-12): 0.180-2.990 mIU/L Second Trimester: 0.110-3.980 mIU/L Third Trimester: 0.480-4.710 mIU/L Homer Caputo et al. A Practical Approach for the Verifications and Determination of Site- and Trimester-Specific Reference Intervals for Thyroid Function tests in . Thyroid, 2019:29:3:412-420. Moose Lopez, et al. 2017 Guidelines of the [place] Thyroid Association for the Diagnosis and Management of Thyroid Disease during and the . Thyroid, 2017:27:3:315-389. Performed By: #### 7 3752-8, 5195-3, 81962-0 #### [facility] CLIA [id number] [address] [place] [address] [place] [facility] CNPRaysa 10-29-2024 CNPN Telephone ([facility]) NENA LEIVA ([id number]) 1990 F Date Time Provider Department 10/29/24 LIANNA CAPONE OBGYWM During your visit today, we recorded the following information about you: Kristen Chang RN 10/29/2024 10:06 AM Signed Received breast pump RX from [employer]. To DM to sign. GILMAR Cottrell Lindsey, RN 10/29/2024 12:33 PM Signed Order signed and faxed. Juliana Huston RN Allergies As of Date: 10/29/2024 Noted Allergy Reaction BEES 07/07/2008 7 - Swelling LATEX 07/07/2008 4 - Hives Date Reviewed: 10/29/2024 Reviewed by: Kristen Smith MD - Fully Assessed Reason for Visit: Breast Pump RX [Other] Prescriptions as of 10/29/2024 - thyroid (DATA OFFICER THYROID) 120 mg tablet Take 1 tablet [...] Encounter Status:Closed by JULIANA HUSTON on 10/29/24 [facility] ([id number]) 1990 F Date Time Provider Department 10/27/24 MIGEULITO CHAMPION [facility] During your visit today, we recorded the following information about you: Lisa León LPN 10/27/2024 11:44 AM Signed Increase again even though my TSH was 0.6? Just wanted to make sure I?m reading it right. Me to Nena Leiva [place] 10/24/24 5:09 PM Please have her increase her dose to 2 tablets 5 days a week and 1 tablet 2 days a week for her DATA OFFICER thyroid 120 mg Recheck labs 1 month [...] Date Reviewed: 10/15/2024 Reviewed by: Lauren Madera APRN.[employer] SHEETS SUPERVISOR - Fully Assessed Prescriptions as of 10/30/2024 - thyroid (DATA OFFICER THYROID) 120 mg tablet Take 1 tablet [...] Encounter Status:Closed by PIPER MISTRY on 10/30/24 [facility] Vania 10-24-2024 C[facility] Telephone [facility] NENA LEIVA ([id number]) 1990 F Date Time Provider Department 10/24/24 [facility] During your visit today, we recorded the following information about you: Crystal Giraldo MA 10/24/2024 2:15 PM Signed Please see pt [...] tablet 2 days a week for her DATA OFFICER thyroid 120 mg Recheck labs 1 month DO Natasha Skelton Susan LPN 10/24/2024 5:09 PM Signed Pt. informed via my chart. Allergies As of Date: 10/24/2024 Noted Allergy Reaction BEES 07/07/2008 7 - Swelling LATEX 07/07/2008 4 - Hives Date Reviewed: 10/15/2024 Reviewed by: Lauren Madera APRN.[facility] - Fully Assessed Primary Visit Diagnosis:Acquired hypothyroidism [E03.9] Order(s):THYROID STIMULATING HORMONE [SQTSH] Order #: [id number] FUTURE T4 FREE/FREE THYROXINE [SQFT4] Order #: [id number] FUTURE Prescriptions as of 10/24/2024 - thyroid (DATA OFFICER THYROID) 120 mg tablet Take 1 tablet [...] by LISA LEÓN LPN on 10/24/24 Normal [facility] Examination level ultrasound on 10-16-2024 [facility] CBC W Auto Differential pane l (Bld)on 10-15-2024 Basophils (Bld) [#/Vol] 0.05 10*3/uL Normal <0.11 [facility] Comment on above: Order Comment: Speci men Type: BLOOD SPECIMEN Ordering Facility: [facility] Address: [address] [place] [address] Performed By: #### 7 3752-8, 5195-3, 78938-2 #### [facility] CLIA [id number] [address] [place] [address] [place] Basophils/100 WBC (Bld) 0.4 % Normal [facility] Comment on above: Order Comment: Speci men Type: BLOOD SPECIMEN Ordering Facility: [facility] Address: [address] [place] [address] Performed By: #### 7 3752-8, 5195-3, 92597-7 #### [facility] CLIA [id number] [address] [place] [address] [place] Differential cell count method Nom (Bld) Auto Normal [facility] Comment on above: Order Comment: Speci men Type: BLOOD SPECIMEN Ordering Facility: [facility] Address: [address] [place] [address] Performed By: #### 7 3752-8, 5195-3, 93786-4 #### [facility] CLIA [id number] [address] [place] [address] [place] Eosinophils (Bld) [#/Vol] 0.16 10*3/uL Normal <0.46 [facility] Comment on above: Order Comment: Speci men Type: BLOOD SPECIMEN Ordering Facility: [facility] Address: [address] [place] [address] Performed By: #### 7 3752-8, 5195-3, 39888-0 #### [facility] CLIA [id number] [address] [place] [address] [place] Eosinophils/100 WBC (Bld) 1.2 % Normal [facility] Comment on above: Order Comment: Speci men Type: BLOOD SPECIMEN Ordering Facility: [facility] Address: [address] [place] [address] Performed By: #### 7 3752-8, 5195-3, 74135-5 #### [facility] CLIA [id number] [address] [place] [address] [place] Erythrocyte distribution width (RBC) [Ratio] 13.1 % Normal 11.5-15.0 [facility] Comment on above: Order Comment: Speci men Type: BLOOD SPECIMEN Ordering Facility: [facility] Address: [address] [place] [address] Performed By: #### 7 3752-8, 5195-3, 28009-9 #### [facility] CLIA [id number] [address] [place] [address] [place] Hematocrit (Bld) [Volume fraction] 36.1 % Normal 36.0-46.0 [facility] Comment on above: Order Comment: Speci men Type: BLOOD SPECIMEN Ordering Facility: [facility] Address: [address] [place] [address] Performed By: #### 7 3752-8, 5195-3, 51242-3 #### [facility] CLIA [id number] [address] [place] [address] [place] Hemoglobin (Bld) [Mass/Vol] 12.5 g/dL Normal 11.5-15.5 [facility] Comment on above: Order Comment: Speci men Type: BLOOD SPECIMEN Ordering Facility: [facility] Address: [address] [place] [address] Performed By: #### 7 3752-8, 5195-3, 83313-0 #### [facility] CLIA [id number] [address] [place] [address] [place] Immature granulocytes (Bld) [#/Vol] 0.08 10*3/uL Normal <0.10 [facility] Comment on above: Order Comment: Speci men Type: BLOOD SPECIMEN Ordering Facility: [facility] Address: [address] [place] [address] Performed By: #### 7 3752-8, 5195-3, 79231-5 #### [facility] CLIA [id number] [address] [place] [address] [place] Immature granulocytes/100 WBC (Bld) 0.6 % Normal [facility] Comment on above: Order Comment: Speci men Type: BLOOD SPECIMEN Ordering Facility: [facility] Address: [address] [place] [address] Performed By: #### 7 3752-8, 5195-3, 98062-8 #### [facility] CLIA [id number] [address] [place] [address] [place] Lymphocytes (Bld) [#/Vol] 2.18 10*3/uL Normal 1.00-4.00 [facility] Comment on above: Order Comment: Speci men Type: BLOOD SPECIMEN Ordering Facility: [facility] Address: [address] [place] [address] Performed By: #### 7 3752-8, 5-3, 29463-5 #### [facility] CLIA [id number] [address] [place] [address] [place] Lymphocytes/100 WBC (Bld) 16.3 % Normal [facility] Comment on above: Order Comment: Speci men Type: BLOOD SPECIMEN Ordering Facility: [facility] Address: [address] [place] [address] Performed By: #### 7 3752-8, 5194-3, 78150-4 #### [facility] CLIA [id number] [address] [place] [address] [place] MCH (RBC) [Entitic mass] 28.4 pg Normal 26.0-34.0 [facility] Comment on above: Order Comment: Speci men Type: BLOOD SPECIMEN Ordering Facility: [facility] Address: [address] [place] [address] Performed By: #### 7 3752-8, 5194-3, 06549-8 #### [facility] CLIA [id number] [address] [place] [address] [place] MCHC (RBC) [Mass/Vol] 34.6 g/dL Normal 30.5-36.0 [facility] Comment on above: Order Comment: Speci men Type: BLOOD SPECIMEN Ordering Facility: [facility] Address: [address] [place] [address] Performed By: #### 7 3752-8, 5194-3, 00796-5 #### [facility] CLIA [id number] [address] [place] [address] [place] MCV (RBC) [Entitic vol] 82.0 fL Normal 80.0-100.0 [facility] Comment on above: Order Comment: Speci men Type: BLOOD SPECIMEN Ordering Facility: [facility] Address: [address] [place] [address] Performed By: #### 7 3752-8, 5194-3, 88325-8 #### [facility] CLIA [id number] [address] [place] [address] [place] Monocytes (Bld) [#/Vol] 0.70 10*3/uL Normal <0.87 [facility] Comment on above: Order Comment: Speci men Type: BLOOD SPECIMEN Ordering Facility: [facility] Address: [address] [place] [address] Performed By: #### 7 3752-8, 5195-3, 36024-4 #### [facility] CLIA [id number] [address] [place] [address] [place] Monocytes/100 WBC (Bld) 5.2 % Normal [facility] Comment on above: Order Comment: Speci men Type: BLOOD SPECIMEN Ordering Facility: [facility] Address: [address] [place] [address] Performed By: #### 7 3752-8, 3, 52193-3 #### [facility] CLIA [id number] [address] [place] [address] [place] Neutrophils (Bld) [#/Vol] 10.21 10*3/uL High 1.45-7.50 [facility] Comment on above: Order Comment: Speci men Type: BLOOD SPECIMEN Ordering Facility: [facility] Address: [address] [place] [address] Performed By: #### 7 3752-8, 3, 80855-9 #### [facility] CLIA [id number] [address] [place] [address] [place] Neutrophils/100 WBC (Bld) 76.3 % Normal [facility] Comment on above: Order Comment: Speci men Type: BLOOD SPECIMEN Ordering Facility: [facility] Address: [address] [place] [address] Performed By: #### 7 3752-8, 5195-3, 05005-2 #### [facility] CLIA [id number] [address] [place] [address] [place] Nucleated RBC (Bld) [#/Vol] 10*3/uL Normal <0.01 [facility] Comment on above: Order Comment: Speci men Type: BLOOD SPECIMEN Ordering Facility: [facility] Address: [address] [place] [address] Performed By: #### 7 3752-8, 5195-3, 22179-1 #### [facility] CLIA [id number] [address] [place] [address] [place] Nucleated RBC/100 WBC (Bld) [Ratio] 0.0 /100 WBC Normal [facility] Comment on above: Order Comment: Speci men Type: BLOOD SPECIMEN Ordering Facility: [facility] Address: [address] [place] [address] Performed By: #### 7 3752-8, 5195-3, 21177-1 #### [facility] CLIA [id number] [address] [place] [address] [place] Platelet mean volume (Bld) [Entitic vol] 9.4 fL Normal 9.0-12.7 [facility] Comment on above: Order Comment: Speci men Type: BLOOD SPECIMEN Ordering Facility: [facility] Address: [address] [place] [address] Performed By: #### 7 3752-8, 5195-3, 36659-7 #### [facility] CLIA [id number] [address] [place] [address] [place] Platelets (Bld) [#/Vol] 213 10*3/uL Normal 150-400 [facility] Comment on above: Order Comment: Speci men Type: BLOOD SPECIMEN Ordering Facility: [facility] Address: [address] [place] [address] Performed By: #### 7 3752-8, 5195-3, 18557-1 #### [facility] CLIA [id number] [address] [place] [address] [place] RBC (Bld) [#/Vol] 4.40 10*6/uL Normal 3.90-5.20 [facility] Comment on above: Order Comment: Speci men Type: BLOOD SPECIMEN Ordering Facility: [facility] Address: [address] [place] [address] Performed By: #### 7 3752-8, 5195-3, 02949-5 #### [facility] CLIA [id number] [address] [place] [address] [place] WBC (Bld) [#/Vol] 13.38 10*3/uL High 3.70-11.00 [facility] Comment on above: Order Comment: Speci men Type: BLOOD SPECIMEN Ordering Facility: [facility] Address: [address] [place] [address] Performed By: #### 7 3752-8, 5195-3, 98404-4 #### [facility] CLIA [id number] [address] [place] [address] [place] [facility] [place] Examination level ultrasound on 10-15-2024 Radiology Study observation (narrative) [facility] GESTATIONAL GLUCOSE SCREEN, 1-HOUR, 50 GRAM, NON-FASTINGon 10-15-2024 Glucose [Mass/Vol] 129 mg/dL Normal 74-134 [facility] Comment on above: Order Comment: Speci men Type: BLOOD SPECIMEN Ordering Facility: [facility] Address: [address] [place] [address] Result Comment: [facility] Congress of Obstetricians and Gynecologists (Lucas/Harjit) guidelines state a gestational diabetes mellitus positive screen is made, in women not previously diagnosed with overt diabetes, when the 1 hr plasma glucose level is equal to or above 140 mg/dL. [facility] recommends a 135 mg/dL cutoff. Performed By: #### 3 024-7, 3053-6, 3016-3 #### [facility] CLIA [id number] [address] [id number] [address] [place] Reagin and Treponema pallidu m IgG and IgM [Interp]on 10-15-2024 T. pallidum IgG+IgM IA Ql (S) Non-Reactive Normal Nonreactive [facility] Comment on above: Order Comment: Speci men Type: BLOOD SPECIMEN Ordering Facility: [facility] Address: [address] [place] [address] Performed By: #### 7 3752-8, 5195-3, 48883-7 #### [facility] CLIA [id number] [address] [place] [address] [place] Reagin+T pallidum IgG+IgM Se rPl-Impon 10-15-2024 Reagin and Treponema pallidum IgG and IgM [Interp] Cannot exclude recent Treponemal infection if specimen collected within 7-10 days after appearance of suspect lesions or 2-3 weeks after an exposure. Clinical correlation is required. Normal [facility] Comment on above: Order Comment: Speci men Type: BLOOD SPECIMEN Ordering Facility: [facility] Address: [address] [place] [address] Performed By: #### 7 3752-8, 5195-3, 63622-3 #### [facility] CLIA [id number] [address] [place] [address] [place] T4 Free SerPl-mCncon 025 Free T4 [Mass/Vol] 0.7 ng/dL Low 0.9-1.7 [facility] Comment on above: Order Comment: Speci men Type: BLOOD SPECIMEN Ordering Facility: [facility] Address: [address] [place] [address] Performed By: #### 3 024-7, 3053-6, 3016-3 #### [facility] CLIA [id number] [address] [place] [address] [place] TSH W/REFLEX FT4on 5 TSH Qn 0.663 m[IU]/L Normal 0.270-4.200 [facility] Comment on above: Order Comment: Speci men Type: BLOOD SPECIMEN Ordering Facility: [facility] Address: [address] [place] [address] Result Comment: If t he patient is , TSH reference range varies by gestational period: First Trimester (weeks 9-12): 0.180-2.990 mIU/L Second Trimester: 0.110-3.980 mIU/L Third Trimester: 0.480-4.710 mIU/L Homer L, et al. A Practical Approach for the Verifications and Determination of Site- and Trimester-Specific Reference Intervals for Thyroid Function tests in . Thyroid, 2019:29:3:412-420. Moose Lopez, et al. 2017 Guidelines of the [place] Thyroid Association for the Diagnosis and Management of Thyroid Disease during and the . Thyroid, 2017:27:3:315-389. If the patient is , TSH reference range varies by gestational period: First Trimester (weeks 9-12): 0.180-2.990 mIU/L Second Trimester: 0.110-3.980 mIU/L Third Trimester: 0.480-4.710 mIU/L Homer L, et al. A Practical Approach for the Verifications and Determination of Site- and Trimester-Specific Reference Intervals for Thyroid Function tests in . Thyroid, 2019:29:3:412-420. Moose Lopez et al. 2017 Guidelines of the [place] Thy[employer] Association for the Diagnosis and Management of Thyroid Disease during and the . Thyroid, 2017:27:3:315-389. Performed By: #### 3 024-7, 3053-6, 3016-3 #### [facility] CLIA [id number] [address] [place], [place] [address] [address] [place] Result Comment: If t he patient is , TSH reference range varies by gestational period: First Trimester (weeks 9-12): 0.180-2.990 mIU/L Second Trimester: 0.110-3.980 mIU/L Third Trimester: 0.480-4.710 mIU/L Homer L, et al. A Practical Approach for the Verifications and Determination of Site- and Trimester-Specific Reference Intervals for Thyroid Function tests in . Thyroid, 2019:29:3:412-420. Moose Lopez et al. 2017 Guidelines of the [place] Thy[employer] Association for the Diagnosis and Management of Thyroid Disease during and the . Thyroid, 2017:27:3:315-389. TYPE + SCREEN PRENATALon ABO A Normal [facility] Comment on above: Order Comment: Speci men Type: BLOOD SPECIMEN Ordering Facility: [facility] Address: [address] [place] [address] Performed By: #### 7 3752-8, 5195-3, 89606-9 #### [facility] CLIA [id number] [address] [place] [address] [place] Rh Nom (Bld) Negative Normal [facility] Comment on above: Order Comment: Speci men Type: BLOOD SPECIMEN Ordering Facility: [facility] Address: [address] [place] [address] Performed By: #### 7 3752-8, 5195-3, 73850-7 #### [facility] CLIA [id number] [address] [place] [address] [place] TYPE AND SCREEN EXPIRATION 10/18/2024 23:59 Normal [facility] Comment on above: Order Comment: Speci men Type: BLOOD SPECIMEN Ordering Facility: [facility] Address: [address] [place] [address] Performed By: #### 7 3752-8, 5195-3, 62528-8 #### [facility] CLIA [id number] [address] [place] [address] [place] T4 Free SerPl-mCncon 025 Free T4 [Mass/Vol] 0.7 ng/dL Low 0.9-1.7 [facility] Comment on above: Order Comment: Speci men Type: BLOOD SPECIMEN Ordering Facility: [facility] Address: [address] [place] [address] Performed By: #### 7 3752-8, 5195-3, 20700-1 #### [facility] CLIA [id number] [address] [place] [address] [place] TSH SerPl-aCncon 09-19-2024 TSH Qn 1.370 m[IU]/L Normal 0.270-4.200 [facility] Comment on above: Order Comment: Speci men Type: BLOOD SPECIMEN Ordering Facility: [facility] Address: [address] [place] [address] Result Comment: If t he patient is , TSH reference range varies by gestational period: First Trimester (weeks 9-12): 0.180-2.990 mIU/L Second Trimester: 0.110-3.980 mIU/L Third Trimester: 0.480-4.710 mIU/L Homer Caputo et al. A Practical Approach for the Verifications and Determination of Site- and Trimester-Specific Reference Intervals for Thyroid Function tests in . Thyroid, 2019:29:3:412-420. Moose Lopez, et al. 2017 Guidelines of the [place] Thyroid Association for the Diagnosis and Management of Thyroid Disease during and the . Thyroid, 2017:27:3:315-389. Performed By: #### 7 3752-8, 5195-3, 31145-3 #### [facility] CLIA [id number] [address] [place] [address] [place] Examination level ultrasound on 08-25-2024 Indication Detailed [...] 0 oz EFW by: Hadlock (HC-AC-FL) Extended Ambulance Driver Paramedic 5.9 mm CM 3.7 mm 11% Nicolaides [...] normal LVOT view: normal 3-vessel view: normal 5-dvcvjv-bsugiup view: normal Heart / Thorax Situs: situs [...] Read By: Jossie Gonzales M.D. MATERNAL MEDICINE [facility] CNOVon 08-23-2024 CNOV Office Visit (FAMPWS ) NENA LEIVA ([id number]) 1990 F Date Time Provider Department 08/23/24 9:00 [facility] your visit today, we recorded the following information about you: Temperature Pulse Blood pressure Weight 98 degrees 85/minute 106/67 103.1 kg Height 1.66 m Miguelito Champion DO 08/23/2024 10:40 AM Signed CC: Nena Leiva is a 34 year old female who presents to the office for physical HPI: Overall she is doing well She is with a baby girl and due in 20 weeks, she is 20 weeks 3 days and managed by OBGYN in [place]. She has had 3 other successful vaginal births-1 davies, 1 set of twins. She is taking her vitamins at this time. Hypothyroidism, she is taking 120 mg of DATA OFFICER thyroid 4 days a week and 240 [...] E, et al. 2017 Guidelines of the [place] Thyroid Association for the Diagnosis and Management [...] daily. cetirizine (ZYRTEC) 10 mg tablet thyroid (DATA OFFICER THYROID) 120 mg tablet Take 1 tablet [...] lb 3.2 oz) Height: 166 cm (5' 5.35) Gen: AANDO, NAD, non-toxic appearing, Pleasant, cooperative [...] 2. Scre (more content not included)... Normal [facility] Examination level ultrasound on 08-22-2024 Radiology Study observation (narrative) [facility] Free T4 [Mass/Vol]on 025 Interpretation and review of laboratory results Abnormal [facility] No Panel Informationon 08-22 [facility] T4 FREE/FREE THYROXINEon Free T4 [Mass/Vol] 0.7 ng/dL Low 0.9 - 1.7 ng/dL [facility] T4 Free SerPl-mCncon 025 Free T4 [Mass/Vol] 0.7 ng/dL Low 0.9-1.7 [facility] Comment on above: Order Comment: Speci men Type: BLOOD SPECIMEN Ordering Facility: [facility] Address: [address] [place] [address] Performed By: #### 3 024-7, 3053-6, 3016-3 #### [facility] CLIA [id number] [address] [place], [place] [address] [place] [address] [place] THYROID STIMULATING HORMONEo n 08-22-2024 TSH Qn 2.58 m[IU]/L [facility] Comment on above: If the patient [...] Lopez, et al. 2017 Guidelines of the [place] Thyroid Association for the Diagnosis and Management of Thyroid Disease during and the . Thyroid, 2017:27:3:315-389. TSH Qnon 08-22-2024 Interpretation and review of laboratory results Normal [facility] TSH SerPl-aCncon 08-22-2024 TSH Qn 2.580 m[IU]/L Normal 0.270-4.200 [facility] Comment on above: Order Comment: Speci men Type: BLOOD SPECIMEN Ordering Facility: [facility] Address: [address] [place] [address] Result Comment: If t he patient is , TSH reference range varies by gestational period: First Trimester (weeks 9-12): 0.180-2.990 mIU/L Second Trimester: 0.110-3.980 mIU/L Third Trimester: 0.480-4.710 mIU/L Homer Caputo et al. A Practical Approach for the Verifications and Determination of Site- and Trimester-Specific Reference Intervals for Thyroid Function tests in . Thyroid, 2019:29:3:412-420. Moose Lopez et al. 2017 Guidelines of the [place] Thyroid Association for the Diagnosis and Management of Thyroid Disease during and the . Thyroid, 2017:27:3:315-389. Performed By: #### 3 024-7, 3053-6, 3016-3 #### [facility] CLIA [id number] [address] [place] [address] [place] [address] [place] Examination level ultrasound on 07-25-2024 Indication Early [...] 6 oz EFW by: Hadlock (HC-AC-FL) Extended Ambulance Driver Paramedic 4.7 mm Extremities / Bony Struc FL / HC 0.17 70% Hadlock Other Structures FHR 161 bpm Anatomy Cranium: normal Lateral ventricles: normal Choroid plexus: normal Midline falx: normal Cerebellum: normal Cisterna magna: normal Lips: normal 4-chamber view: normal RVOT view: suboptimally visualized LVOT view: normal 3-vessel view: normal 5-zjpxiw-yprnukm view: normal Heart / Thorax Diaphragm: normal [...] Read By: Berto Whitley M.D. MATERNAL MEDICINE [facility] Radiology Study observation (narrative) [facility] CNPNon 07-04-2024 CNPN Telephone (OBGYWM) NENA LEIVA ([id number]) 1990 F Date Time Provider Department 07/04/24 JOE BOYCE During your visit today, we recorded the following information about you: Kristen Chang RN 07/04/2024 4:54 PM Signed 13w2d Patient needs 16 week anatomy. Placed 07/25 @ 11 AM on hold. Will need to attach order and officially schedule once order is placed after today's visit with SW. GILMAR Cottrell Lindsey, RN 07/08/2024 10:02 AM Signed Early anatomy ultrasound scheduled. Spokeable message sent to patient. Juliana Huston RN Allergies As of Date: 07/04/2024 Noted Allergy Reaction BEES 07/07/2008 7 - Swelling LATEX 07/07/2008 4 - Hives Date Reviewed: 07/04/2024 Reviewed by: Jennifer Aguayo LPN - Fully Assessed Reason for Visit: Appointment [186] Orders [681] Primary Visit Diagnosis:Twin with single intrauterine , first trimester, fetus 1 (HCC) [O31.21X1] Other Visit Diagnoses:13 weeks gestation of (HCC) [Z3A.13] Obesity affecting in second trimester, unspecified obesity type (HCC) [O99.212] Order(s):OBSTETRIC ULTRASOUND [facility] [[id number]] Order #: [id number]: 1 FUTURE Prescriptions as of 07/08/2024 - thyroid (DATA OFFICER THYROID) 120 mg tablet Take 1 tablet [...] Status:Closed by JULIANA HUSTON on 07/08/24 Normal [facility] T4 Free SerPl-mCncon 025 Free T4 [Mass/Vol] 0.7 ng/dL Low 0.9-1.7 [facility] Comment on above: Order Comment: Speci men Type: BLOOD SPECIMEN Ordering Facility: [facility] Address: [address] [place] [address] Performed By: #### 3 024-7, 3053-6, 3016-3 #### [facility] CLIA [id number] [address] [place], [place] [address] [place] [address] [place] TSH SerPl-aCncon 07-04-2024 TSH Qn 3.350 m[IU]/L Normal 0.270-4.200 [facility] Comment on above: Order Comment: Speci men Type: BLOOD SPECIMEN Ordering Facility: [facility] Address: [address] [place] [address] Result Comment: If t he patient is , TSH reference range varies by gestational period: First Trimester (weeks 9-12): 0.180-2.990 mIU/L Second Trimester: 0.110-3.980 mIU/L Third Trimester: 0.480-4.710 mIU/L Homer Caputo et al. A Practical Approach for the Verifications and Determination of Site- and Trimester-Specific Reference Intervals for Thyroid Function tests in . Thyroid, 2019:29:3:412-420. Moose Lopez, et al. 2017 Guidelines of the [place] Thyroid Association for the Diagnosis and Management of Thyroid Disease during and the . Thyroid, 2017:27:3:315-389. Performed By: #### 3 024-7, 3053-6, 3016-3 #### [facility] CLIA [id number] [address] [place] [address] [place] CBC W Auto Differential pane l (Bld)on 06-12-2024 Basophils (Bld) [#/Vol] 0.05 10*3/uL Normal <0.11 [facility] Comment on above: Order Comment: Speci men Type: BLOOD SPECIMEN Ordering Facility: [facility] Address: [address] [place] [address] Performed By: #### 7 3752-8, 5195-3, 52254-1 #### [facility] CLIA [id number] [address] [place] [address] [place] Basophils/100 WBC (Bld) 0.6 % Normal [facility] Comment on above: Order Comment: Speci men Type: BLOOD SPECIMEN Ordering Facility: [facility] Address: [address] [place] [address] Performed By: #### 7 3752-8, 5195-3, 07357-3 #### [facility] CLIA [id number] [address] [place] [address] [place] Differential cell count method Nom (Bld) Auto Normal [facility] Comment on above: Order Comment: Speci men Type: BLOOD SPECIMEN Ordering Facility: [facility] Address: [address] [place] [address] Performed By: #### 7 3752-8, 5195-3, 21538-7 #### [facility] CLIA [id number] [address] [place] [address] [place] Eosinophils (Bld) [#/Vol] 0.32 10*3/uL Normal <0.46 [facility] Comment on above: Order Comment: Speci men Type: BLOOD SPECIMEN Ordering Facility: [facility] Address: [address] [place] [address] Performed By: #### 7 3752-8, 5195-3, 67437-9 #### [facility] CLIA [id number] [address] [place] [address] [place] Eosinophils/100 WBC (Bld) 3.6 % Normal [facility] Comment on above: Order Comment: Speci men Type: BLOOD SPECIMEN Ordering Facility: [facility] Address: [address] [place] [address] Performed By: #### 7 3752-8, 5195-3, 69569-2 #### [facility] CLIA [id number] [address] [place] [address] [place] Erythrocyte distribution width (RBC) [Ratio] 12.8 % Normal 11.5-15.0 [facility] Comment on above: Order Comment: Speci men Type: BLOOD SPECIMEN Ordering Facility: [facility] Address: [address] [place] [address] Performed By: #### 7 3752-8, 5195-3, 33061-4 #### [facility] CLIA [id number] [address] [place] [address] [place] Hematocrit (Bld) [Volume fraction] 40.1 % Normal 36.0-46.0 [facility] Comment on above: Order Comment: Speci men Type: BLOOD SPECIMEN Ordering Facility: [facility] Address: [address] [place] [address] Performed By: #### 7 3752-8, 5195-3, 49718-3 #### [facility] CLIA [id number] [address] [place] [address] [place] Hemoglobin (Bld) [Mass/Vol] 13.5 g/dL Normal 11.5-15.5 [facility] Comment on above: Order Comment: Speci men Type: BLOOD SPECIMEN Ordering Facility: [facility] Address: [address] [place] [address] Performed By: #### 7 3752-8, 5195-3, 13704-3 #### [facility] CLIA [id number] [address] [place] [address] [place] Immature granulocytes (Bld) [#/Vol] 0.05 10*3/uL Normal <0.10 [facility] Comment on above: Order Comment: Speci men Type: BLOOD SPECIMEN Ordering Facility: [facility] Address: [address] [place] [address] Performed By: #### 7 3752-8, 5195-3, 19484-9 #### [facility] CLIA [id number] [address] [place] [address] [place] Immature granulocytes/100 WBC (Bld) 0.6 % Normal [facility] Comment on above: Order Comment: Speci men Type: BLOOD SPECIMEN Ordering Facility: [facility] Address: [address] [place] [address] Performed By: #### 7 3752-8, 5195-3, 17494-4 #### [facility] CLIA [id number] [address] [place] [address] [place] Lymphocytes (Bld) [#/Vol] 2.44 10*3/uL Normal 1.00-4.00 [facility] Comment on above: Order Comment: Speci men Type: BLOOD SPECIMEN Ordering Facility: [facility] Address: [address] [place] [address] Performed By: #### 7 3752-8, 5195-3, 04862-6 #### [facility] CLIA [id number] [address] [place] [address] [place] Lymphocytes/100 WBC (Bld) 27.4 % Normal [facility] Comment on above: Order Comment: Speci men Type: BLOOD SPECIMEN Ordering Facility: [facility] Address: [address] [place] [address] Performed By: #### 7 3752-8, 5-3, 91939-2 #### [facility] CLIA [id number] [address] [place] [address] [place] MCH (RBC) [Entitic mass] 27.7 pg Normal 26.0-34.0 [facility] Comment on above: Order Comment: Speci men Type: BLOOD SPECIMEN Ordering Facility: [facility] Address: [address] [place] [address] Performed By: #### 7 3752-8, 5195-3, 99594-5 #### [facility] CLIA [id number] [address] [place] [address] [place] MCHC (RBC) [Mass/Vol] 33.7 g/dL Normal 30.5-36.0 [facility] Comment on above: Order Comment: Speci men Type: BLOOD SPECIMEN Ordering Facility: [facility] Address: [address] [place] [address] Performed By: #### 7 3752-8, 5195-3, 91022-4 #### [facility] CLIA [id number] [address] [place] [address] [place] MCV (RBC) [Entitic vol] 82.3 fL Normal 80.0-100.0 [facility] Comment on above: Order Comment: Speci men Type: BLOOD SPECIMEN Ordering Facility: [facility] Address: [address] [place] [address] Performed By: #### 7 3752-8, 5-3, 42097-1 #### [facility] CLIA [id number] [address] [place] [address] [place] Monocytes (Bld) [#/Vol] 0.54 10*3/uL Normal <0.87 [facility] Comment on above: Order Comment: Speci men Type: BLOOD SPECIMEN Ordering Facility: [facility] Address: [address] [place] [address] Performed By: #### 7 3752-8, 3, 37807-6 #### [facility] CLIA [id number] [address] [place] [address] [place] Monocytes/100 WBC (Bld) 6.1 % Normal [facility] Comment on above: Order Comment: Speci men Type: BLOOD SPECIMEN Ordering Facility: [facility] Address: [address] [place] [address] Performed By: #### 7 3752-8, 3, 80240-6 #### [facility] CLIA [id number] [address] [place] [address] [place] Neutrophils (Bld) [#/Vol] 5.52 10*3/uL Normal 1.45-7.50 [facility] Comment on above: Order Comment: Speci men Type: BLOOD SPECIMEN Ordering Facility: [facility] Address: [address] [place] [address] Performed By: #### 7 3752-8, 3, 45959-4 #### [facility] CLIA [id number] [address] [place] [address] [place] Neutrophils/100 WBC (Bld) 61.7 % Normal [facility] Comment on above: Order Comment: Speci men Type: BLOOD SPECIMEN Ordering Facility: [facility] Address: [address] [place] [address] Performed By: #### 7 3752-8, 3, 44924-9 #### [facility] CLIA [id number] [address] [place] [address] [place] Nucleated RBC (Bld) [#/Vol] 10*3/uL Normal <0.01 [facility] Comment on above: Order Comment: Speci men Type: BLOOD SPECIMEN Ordering Facility: [facility] Address: [address] [place] [address] Performed By: #### 7 3752-8, 5195-3, 09311-8 #### [facility] CLIA [id number] [address] [place] [address] [place] Nucleated RBC/100 WBC (Bld) [Ratio] 0.0 /100 WBC Normal [facility] Comment on above: Order Comment: Speci men Type: BLOOD SPECIMEN Ordering Facility: [facility] Address: [address] [place] [address] Performed By: #### 7 3752-8, 5195-3, 21636-9 #### [facility] CLIA [id number] [address] [place] [address] [place] Platelet mean volume (Bld) [Entitic vol] 9.1 fL Normal 9.0-12.7 [facility] Comment on above: Order Comment: Speci men Type: BLOOD SPECIMEN Ordering Facility: [facility] Address: [address] [place] [address] Performed By: #### 7 3752-8, 5195-3, 89946-9 #### [facility] CLIA [id number] [address] [place] [address] [place] Platelets (Bld) [#/Vol] 240 10*3/uL Normal 150-400 [facility] Comment on above: Order Comment: Speci men Type: BLOOD SPECIMEN Ordering Facility: [facility] Address: [address] [place] [address] Performed By: #### 7 3752-8, 5195-3, 41274-0 #### [facility] CLIA [id number] [address] [place] [address] [place] RBC (Bld) [#/Vol] 4.87 10*6/uL Normal 3.90-5.20 [facility] Comment on above: Order Comment: Speci men Type: BLOOD SPECIMEN Ordering Facility: [facility] Address: [address] [place] [address] Performed By: #### 7 3752-8, 5195-3, 28240-1 #### [facility] CLIA [id number] [address] [place] [address] [place] WBC (Bld) [#/Vol] 8.92 10*3/uL Normal 3.70-11.00 [facility] Comment on above: Order Comment: Speci men Type: BLOOD SPECIMEN Ordering Facility: [facility] Address: [address] [place] [address] Performed By: #### 7 3752-8, 5195-3, 45647-7 #### [facility] CLIA [id number] [address] [place] [address] [place] HBV surface Ag Ser Qlon 05-0 HBV surface Ag Ql (S) Negative Normal Negative [facility] Comment on above: Order Comment: Speci men Type: BLOOD SPECIMEN Ordering Facility: [facility] Address: [address] [place] [address] Performed By: #### 7 3752-8, 5195-3, 75748-0 #### [facility] CLIA [id number] [address] [place] [address] [place] HCV Ab Ser Qlon 06-12-2024 HCV Ab Ql (S) Negative Normal Negative [facility] Comment on above: Order Comment: Speci men Type: BLOOD SPECIMEN Ordering Facility: [facility] Address: [address] [place] [address] Result Comment: The result suggests no evidence of infection with Hepatitis C virus. Should recent infection be suspected, repeat testing may be considered 4-6 weeks after this draw. Performed By: #### 3 024-7, 3053-6, 3016-3 #### [facility] CLIA [id number] [address] [place] [address] [place] HIV 1+2 Ab IA Qlon 5 HIV 1 and 2 Ab IA.rapid Nom (S/P/Bld) Normal [facility] Comment on above: Order Comment: Speci men Type: BLOOD SPECIMEN Ordering Facility: [facility] Address: [address] [place] [address] Result Comment: Test not indicated. Performed By: #### 7 3752-8, 5195-3, 90822-3 #### [facility] CLIA [id number] [address] [place] [address] [place] HIV 1+2 Ab+HIV1 p24 Ag IA Ql Non-Reactive Normal Nonreactive [facility] Comment on above: Order Comment: Speci men Type: BLOOD SPECIMEN Ordering Facility: [facility] Address: [address] [place] [address] Performed By: #### 7 3752-8, 5195-3, 06976-4 #### [facility] CLIA [id number] [address] [place] [address] [place] HIV immunoassay testing algorithm interpretation (S/P/Bld) [Interp] Normal [facility] Comment on above: Order Comment: Speci men Type: BLOOD SPECIMEN Ordering Facility: [facility] Address: [address] [place] [address] Result Comment: No e vidence of HIV-1 or HIV-2 infection. Should recent infection be suspected, repeat testing may be considered 2-3 weeks after this draw. [place] Rev. Code 3701.243(E): This information has been [...] diagnoses. Performed By: #### 7 3752-8, 5195-3, 20708-6 #### [facility] CLIA [id number] [address] [place] [address] [place] HbA1c (Bld)on 06-12-2024 Average glucose Estimated from glycated hemoglobin (Bld) [Mass/Vol] 94 mg/dL Normal [facility] Comment on above: Order Comment: Speci men Type: BLOOD SPECIMEN Ordering Facility: [facility] Address: [address] [place] [address] Result Comment: eAG: (Estimated average glucose) is a calculated value from HgbA1c and is outbound telemarketing representative of the average blood glucose level in the last 2-3 month period. Performed By: #### 3 024-7, 3053-6, 6-3 #### [facility] CLIA [id number] [address] [place] [address] [place] HbA1c (Bld) [Mass fraction] 4.9 % Normal 4.3-5.6 [facility] Comment on above: Order Comment: Speci men Type: BLOOD SPECIMEN Ordering Facility: [facility] Address: [address] [place] [address] Result Comment: Amer [place] Diabetes Association guidelines indicate that patients with HgbA1c in the range 5.7-6.4% are at increased risk for development of diabetes, and intervention by lifestyle modification may be beneficial. HgbA1c greater or equal to 6.5% is considered diagnostic of diabetes. Performed By: #### 3 024-7, 3053-6, 3016-3 #### [facility] CLIA [id number] [address] [place] [address] [place] [id number] PLUSon 06-12-2024 Cell-free DNA./Cell-free DNA.total Dosage of chromosome-specific cfDNA (cfDNA) [Molar fraction] 12% Normal [facility] Comment on above: Order Comment: Speci men Type: BLOOD SPECIMENOrdering Facility: [facility] Address: [address] [place], [place] [address] Performed By: #### M AT21 ####[facility]CLIA [id number] [place] [address] Chr 13+18+21+X+Y aneuploidy Dosage of chromosome-specific cfDNA Ql (cfDNA) Negative Normal [facility] Comment on above: Order Comment: Speci men Type: BLOOD SPECIMENOrdering Facility: [facility] Address: [address] [place] [address] Performed By: #### M AT21 ####[facility] LABCLIA [id number] [place] [address] Chr 21 trisomy Dosage of chromosome-specific cfDNA Ql (cfDNA) Negative Normal [facility] Comment on above: Order Comment: Speci men Type: BLOOD SPECIMENOrdering Facility: [facility] Address: [address] [place] [address] Performed By: #### M AT21 ####Here@ [facility] LABCLIA [id number] [place] [address] Chr X and Y aneuploidy risk Sequencing Ql (cfDNA) [Interp] Not detected Normal [facility] Comment on above: Order Comment: Speci men Type: BLOOD SPECIMENOrdering Facility: [facility] Address: [address] [place] [address] Result Comment: Not Detected Not Detected Performed By: #### M AT21 ####[facility]CLIA [id number] [place] [address] Citation Isaiah (Reference lab test) Comment Normal [facility] Comment on above: Order Comment: Speci men Type: BLOOD SPECIMENOrdering Facility: [facility] Address: [address] [place] [address] Result Comment: 1. P june CLIFFORD, et al. Adniela Med. 2012;14(3):296-305. 2. Barb SANZ et al. Prenat Diag. 2013;33(6):591-597. 3. Jesús C, et al. Clin Chem. 2015 Apr;61(4):608-616. 4. Onesimo CLIFFORD et al. Daniela Med. 2011;13(11):913-920. 5. ACOG/SMFM Practice Bulletin No. 226, Nov 2019. Performed By: #### M AT21 ####[facility] LABCLIA [id number] [place] [address] Gestational age Estimated from conception date Davies Normal [facility] Comment on above: Order Comment: Speci men Type: BLOOD SPECIMENOrdering Facility: [facility] Address: [address] [place] [address] Performed By: #### M AT21 ####[facility] LABCLIA [id number] [place] [id number] GESTATIONALAGE AGE > OR = 9W Yes Normal [facility] Comment on above: Order Comment: Speci men Type: BLOOD SPECIMENOrdering Facility: [facility] Address: [address] [place] [address] Performed By: #### M AT21 ####[facility]CLIA [id number] [place] [id number] Laboratory comment Isaiah (Report) Comment Normal [facility] Comment on above: Order Comment: Speci jillian Type: BLOOD SPECIMENOrdering Facility: [facility] Address: [address] [place] [address] Result Comment: The MaterniT(R) 21 PLUS laboratory-developed test (LDT) analyzes circulating cell-free DNA from a maternal blood sample. This test is used for screening purposes and not diagnostic. Clinical correlation is recommended. Validation data on twin pregnancies is limited and the ability of this test to detect aneuploidy in higher multiple gestations has not yet been validated. Performed By: #### M AT21 ####[facility] LABCLIA [id number] [place] [id number] director of emergency nursing name Nom (Provider) Comment Normal [facility] Comment on above: Order Comment: Speci men Type: BLOOD SPECIMENOrdering Facility: [facility] Address: [address] [place] [address] Result Comment: This specimen showed an expected representation of chromosome 21, 18 and 13 material. Clinical correlation is suggested. Comment Moe Nagy MD, PhD, Director, [facility] Performed By: #### M AT21 ####Here@ [facility] LABCLIA [id number] [place] [address] LIMITATIONS OF THE TEST Comment Normal [facility] Comment on above: Order Comment: Speci men Type: BLOOD SPECIMENOrdering Facility: [facility] Address: [facility] [place] [address] Result Comment: Monik lopez the results of [...] Xaparin(R), Clexane(R) and Fragmin(R)). Performed By: #### M AT21 ####News[facility]IA [id number] [place] [id number] Monosomy X risk Dosage of chromosome-specific cfDNA Ql (Plasma cell-free+WBC DNA) [Interp] Not detected Normal [facility] Comment on above: Order Comment: Selam walsh Type: BLOOD SPECIMENOrdering Facility: [facility] Address: [address] [place] [address] Performed By: #### M AT21 ####[facility] LABNetWitnessIA [id number] [place] [id number] NEGATIVE PREDICTIVE VALUE Note Normal [facility] Comment on above: Order Comment: Selam walsh Type: BLOOD SPECIMENOrdering Facility: [facility] Address: [address] [place] [address] Result Comment: The Negative Predictive Value (NPV) for trisomy 21, 18, and 13 is greater than 99%. The NPV for SCA and ESS cannot be calculated as SCA and ESS are only reported when an abnormality is detected. Performed By: #### M AT21 ####[facility] LABNetWitnessIA [id number] [place] [address] PERFORMANCE CHARACTERISTICS Note Normal [facility] Comment on above: Order Comment: Selam walsh Type: BLOOD SPECIMENOrdering Facility: [facility] Address: [address] [place] [address] Result Comment: ! Sex ! Accuracy: 99.4% [...] ! ! ! * As reported in [facility] database nstd37 [https://www.ncbi.nlm.nih.gov/dbvar/studies/nstd37/ ] # Estimated Sensitivity. Sensitivity estimated across the observed size distribution of each syndrome [per ISCA database nstd37] and across the range of fractions observed in routine clinical NIPT. Actual sensitivity can also be influenced by other factors such as the size of the event, total sequence counts, amplification bias, or sequence bias. ## Davies gestation only. Performed By: #### M AT21 ####Here@ [facility] LABCLIA [id number] [place] [address] POSITIVE PREDICTIVE VALUE N/A Normal [facility] Comment on above: Order Comment: Speci men Type: BLOOD SPECIMENOrdering Facility: [facility] Address: [address] [place] [address] Performed By: #### M AT21 ####Here@ [facility] LABCLIA [id number] [place] [address] Reference Lab Test Method Comment Normal [facility] Comment on above: Order Comment: Speci men Type: BLOOD SPECIMENOrdering Facility: [facility] Address: [address] [place] [address] Result Comment: See Notes Circulating cell-free DNA [...] chromosomes 16 and 22. Performed By: #### M AT21 ####Here@ [facility] LABCLIA [id number] [place] [address] Service comment (Unsp spec) [Interp] Comment Normal [facility] Comment on above: Order Comment: Speci men Type: BLOOD SPECIMENOrdering Facility: [facility] Address: [address] [place] [address] Result Comment: See Notes [employer] is a subsidiary of [employer], using the brand [employer]. This test was developed and its performance characteristics determined by [employer]. It has not been cleared or approved by the Food and Drug Administration. This laboratory is certified under the Clinical Laboratory Improvement Amendments (CLIA) as qualified to perform high complexity clinical laboratory testing and accredited by the [employer] ([employer]). If there is future clinical need for adding MaterniT GENOME testing, this specimen will be available until term. [facility] samples will not be retained beyond 60 days. [facility] patients will have to send a new sample for re-sequencing ([facility] Test Code: [id number]). Performed By: #### M AT21 ####[facility] LABCLIA [id number] [place] [address] Sex Dosage of chromosome-specific cfDNA Nom (cfDNA) Comment Normal [facility] Comment on above: Order Comment: Speci men Type: BLOOD SPECIMENOrdering Facility: [facility] Address: [address] [place] [address] Result Comment: Cons istent with Female Performed By: #### M AT21 ####[facility]NetWitnessIA [id number] [place] [address] Test performance information Isaiah (Unsp spec) Comment Normal [facility] Comment on above: Order Comment: Speci men Type: BLOOD SPECIMENOrdering Facility: [facility] Address: [address] [place] [address] Result Comment: The performance characteristics of the MaterniT(R) 21 PLUS laboratory-developed test (LDT) have been determined in a clinical validation study with women at increased risk for chromosomal aneuploidy.[1-4] Performed By: #### M AT21 ####[facility] LABCLIA [id number] [place] [address] Trisomy 13 risk Dosage of chromosome-specific cfDNA Ql (cfDNA) [Interp] Negative Normal [facility] Comment on above: Order Comment: Speci men Type: BLOOD SPECIMENOrdering Facility: [facility] Address: [address] [place] [address] Performed By: #### M AT21 ####[facility] LABCLIA [id number] [place] [address] Trisomy 18 risk Dosage of chromosome-specific cfDNA Ql (Plasma cell-free+WBC DNA) [Interp] Negative Normal [facility] Comment on above: Order Comment: Speci jillian Type: BLOOD SPECIMENOrdering Facility: [facility] Address: [address] [place] [address] Performed By: #### M AT21 ####Here@ [facility] LABCLIA [id number] [place] [address] RUBELLA IGG ANTIBODYon 06-12 RUBELLA IGG AB, QUAL Positive Normal Positive [facility] Comment on above: Order Comment: Speci men Type: BLOOD SPECIMEN [facility]ing Facility: [facility] Address: [address] [place] [address] Result Comment: The result suggests recent or past exposure to Rubella virus or history of Rubella vaccination. Positive result may also be seen due to presence of passively-transferred antibodies. Please correlate with patient's history. Performed By: #### 7 3752-8, 5195-3, 84189-9 #### [facility] CLIA [id number] [address] [place] [address] [place] Reagin and Treponema pallidu m IgG and IgM [Interp]on 06-12-2024 T. pallidum IgG+IgM IA Ql (S) Non-Reactive Normal Nonreactive [facility] Comment on above: Order Comment: Speci [facility] Type: BLOOD SPECIMEN [facility]ing Facility: [facility] Address: [address] [place] [address] Performed By: #### 7 3752-8, 5195-3, 36175-8 #### [facility] CLIA [id number] [address] [place] [address] [place] Reagin+T pallidum IgG+IgM Se rPl-Impon 06-12-2024 Reagin and Treponema pallidum IgG and IgM [Interp] Cannot exclude recent Treponemal infection if specimen collected within 7-10 days after appearance of suspect lesions or 2-3 weeks after an exposure. Clinical correlation is required. Normal [facility] Comment on above: Order Comment: Speci men Type: BLOOD SPECIMEN [facility]ing Facility: [facility] Address: [address] [place] [address] Performed By: #### 7 3752-8, 5195-3, 21889-5 #### [facility] CLIA [id number] [address] [place] [address] [place] TYPE + SCREEN PRENATALon ABO A Normal [facility] Comment on above: Order Comment: Speci men Type: BLOOD SPECIMEN [facility]ing Facility: [facility] Address: [address] [place] [address] Performed By: #### 7 3752-8, 5195-3, 95484-7 #### [facility] CLIA [id number] [address] [place] [address] [place] Rh Nom (Bld) Negative Normal [facility] Comment on above: Order Comment: Speci men Type: BLOOD SPECIMEN [facility]ing Facility: [facility] Address: [address] [place], [place] [address] Performed By: #### 7 3752-8, 5195-3, 02471-1 #### [facility] CLIA [id number] [address] [place] [address] TYPE AND SCREEN EXPIRATION 06/15/2024 23:59 Normal [facility] Comment on above: Order Comment: Speci men Type: BLOOD SPECIMEN Ordering Facility: [facility] Address: [address] [place] [address] Performed By: #### 7 3752-8, 5195-3, 08258-8 #### [facility] CLIA [id number] [address] [place] [address] OF [place]IK[place] CNPRaysa 05-24-2024 CNPN Telephone (FAMPWS) TEJALNENA ARGUELLO ([id number]) 1990 F Date Time Provider Department 05/24/24 MIGUELITO CHAMPIONPWS During your visit today, we recorded the [...] Requested Prescriptions Signed Prescriptions Disp Refills thyroid (DATA OFFICER THYROID) 120 mg tablet 140 tablet 3 Sig: Take 1 tablet PO 5 days a week and 2 tablets PO 2 days a week Authorizing Provider: MIGUELITO CHAMPION DO Rowland, Kathryn, [place] 05/26/2024 9:44 AM Signed Pt notified of results via Giggzo. Glo Smith Ma Allergies As of Date: 05/24/2024 Noted Allergy Reaction BEES 07/07/2008 7 - Swelling LATEX 07/07/2008 4 - Hives Date Reviewed: 05/23/2024 Reviewed by: Almita Sawyer LPN - Fully Assessed Reason for Visit: Results [95] Cmt: Primary Visit Diagnosis:Hypothyroidi sm, acquired [E03.9] Order(s):thyroid (DATA OFFICER THYROID) 120 mg tabletTake 1 tablet PO 5 days a week and 2 tablets PO 2 days a weekDisp: 140 tabletRfl: 3 THYROID STIMULATING HORMONE [SQTSH] Order #: [id number] FUTURE T4 FREE/FREE THYROXINE [SQFT4] Order #: [id number] FUTURE Prescriptions as of 05/26/2024 - thyroid (DATA OFFICER THYROID) 120 mg tablet Take 1 tablet [...] Medications Discontinued During This Encounter Prescriptions - DATA OFFICER THYROID 60 mg tablet (Discontinued) TAKE 2 TABLETS BY MOUTH EVERY DAY Encounter Status:Closed by GLO SMITH on 05/26/24 Normal [facility] Bacteria Ur Culton 5 Bacteria identified Cx Nom (U) ORGANISM ID: 1 >=100,000 CFU/ml Normal urogenital trina Normal [facility] Comment on above: Performed By: #### 7 3752-8, 5195-3, 52453-6 #### [facility] CLIA [id number] [address] [place] [address] [place] [address] [place] C. trachomatis+N. gonorrhoea e DNA SAMSON+probe Ql (Unsp spec)on 05-23-2024 C. trachomatis rRNA SAMSON+probe Ql (Unsp spec) Not detected Normal Not detected [facility] Comment on above: Order Comment: Speci men Type: BLOOD SPECIMEN Ordering Facility: [facility] Address: [address] [place] [address] Performed By: #### 3 024-7, 3053-6, 3016-3 #### [facility] CLIA [id number] [address] [place] [address] [place] N. gonorrhoeae rRNA SAMSON+probe Ql (Unsp spec) Not detected Normal Not detected [facility] Comment on above: Order Comment: Speci men Type: BLOOD SPECIMEN Ordering Facility: [facility] Address: [address] [place] [address] Performed By: #### 3 024-7, 3053-6, 3016-3 #### [facility] CLIA [id number] [address] [place] [address] [place] HIGH RISK HUMAN PAPILLOMA BIB (HPV), PCR FOR DETECTION AND GENOTYPINGon 05-23-2024 HPV 16 Ag Ql (Unsp spec) Not detected Normal Not detected [facility] Comment on above: Order Comment: Speci men Type: FLUID SPECIMENOrdering Facility: [facility] Address: [address] [place] [address] Performed By: #### H PVHRT ####[facility] [id number] [place] [address] [place] HPV 18 Ag Ql (Unsp spec) Not detected Normal Not detected [facility] Comment on above: Order Comment: Speci men Type: FLUID SPECIMENOrdering Facility: [facility] Address: [address] [place] [address] Performed By: #### H PVHRT ####[facility] [id number] [place] [address] [place] HPV 31+33+35+39+45+51+52 +56+58+59+66+68 DNA SAMSON+probe Ql (Cvx) Not detected Normal Not detected [facility] Comment on above: Order Comment: Speci men Type: FLUID SPECIMENOrdering Facility: [facility] Address: [address] [place] [address] Result Comment: High Risk HPV Other Type includes HPV types 31, 33, 35, 39, 45, 51, 52, 56, 58, 59, 66 and 68. Performed By: #### H PVHRT ####[facility] [id number] [place] [address] [place] PAP TESTon 05-23-2024 ADEQUACY Normal [facility] Comment on above: Order Comment: Speci men Type: BLOOD SPECIMEN Ordering Facility: [facility] Address: [address] [place] [address] Result Comment: Sati sfactory for interpretation. Transformation zone present Performed By: #### 7 3752-8, 5194-3, 41483-9 #### [facility] CLIA [id number] [address] [place] [address] [place] CASE REPORT Normal [facility] Comment on above: Order Comment: Speci men Type: BLOOD SPECIMEN Ordering Facility: [facility] Address: [address] [place] [address] Result Comment: Gyne cologic Cytology Report Case: [id number] Authorizing Provider: Shiloh Westfall APRN.[employer] SHEETS SUPERVISOR Collected: 05/23/2024 09:08 AM Ordering Location: OB/Gynecology Received: 05/23/2024 12:22 PM First Screen: Gmitro, Darryl, CT, ASCP Specimen: Pap Test, ThinPrep, Cervix Performed By: #### 7 3752-8, 5194-3, 10738-5 #### [facility] CLIA [id number] [address] [place], [place] [address] [place] CLINICAL HISTORY, CYTOLOGY, CITY COUNCILMAN Routine Exam Normal [facility] Comment on above: Order Comment: Speci men Type: BLOOD SPECIMEN Ordering Facility: [facility] Address: [address] [place] [address] Performed By: #### 7 3752-8, 5195-3, 18205-9 #### [facility] CLIA [id number] [address] [id number] [address] [place] FINAL PERFORMING LAB Normal [facility] Comment on above: Order Comment: Speci men Type: BLOOD SPECIMEN Ordering Facility: [facility] Address: [address] [place] [address] Result Comment: Tech nical component, administrative office manager screening performed at [facility], [address] [place] [address] CLIA# [id number] Diagnostic interpretation performed at [facility], [address] [place] [address] CLIA# [id number] Laminating Machine Operator: Bassam Dawn M.D. Performed By: #### 7 3752-8, 5195-3, 81487-3 #### [facility] CLIA [id number] [address] [place] [address] [place] INTERPRETATION, CYTOLOGY, CITY COUNCILMAN Normal [facility] Comment on above: Order Comment: Speci men Type: BLOOD SPECIMEN Ordering Facility: [facility] Address: [address] [place] [address] Result Comment: Nega tive for intraepithelial lesion or malignancy. at 1427 EDT Performed By: #### 7 3752-8, 5-3, 31704-7 #### [facility] CLIA [id number] [address] [place], [place] [address] [place] LMP 04/02/2024 Normal [facility] Comment on above: Order Comment: Speci men Type: BLOOD SPECIMEN Ordering Facility: [facility] Address: [address] [place], [place] [address] Performed By: #### 7 3752-8, 5-3, 05159-3 #### [facility] CLIA [id number] [address] [place], [place] [address] [place] PAP DISCLAIMER COMMENT The Pap Smear is a screening test for cervical cancer. False negative results occur with all screening tests, emphasizing the need for rescreening at recommended intervals, and clinical correlation. Normal [facility] Comment on above: Order Comment: Speci men Type: BLOOD SPECIMEN Ordering Facility: [facility] Address: [address] [place] [address] Performed By: #### 7 3752-8, 5195-3, 90555-4 #### [facility] CLIA [id number] [address] [place] [address] OF [place]IK[place] PAP FAILURE ANALYSIS TECHNICIAN COMMENT This specimen has be en analyzed by the ThinPrep Imaging System, an automated imaging and review system, which assists the laboratory in evaluating cells on ThinPrep Pap tests. Following automated imaging, selected narvaez from every slide are reviewed by a administrative office manager. Normal [facility] Comment on above: Order Comment: Luis Antonioi jillian Type: BLOOD SPECIMEN Ordering Facility: [facility] Address: [address] [place] [address] Performed By: #### 7 3752-8, 5195-3, 03045-4 #### [facility] CLIA [id number] [address] [place] [address] [place] POC TRAUMA NURSE ULTRASOUNDon 05-24-19 Indication Confirmation of intrauterine . [...] Read By: Shiloh Westfall CNP MATERNAL MEDICINE [facility] Radiology Study observation (narrative) [facility] T4 Free SerPl-mCncon 025 Free T4 [Mass/Vol] 0.9 ng/dL Normal 0.9-1.7 [facility] Comment on above: Order Comment: Speci men Type: BLOOD SPECIMEN Ordering Facility: [facility] Address: [address] [place] [address] Performed By: #### 7 3752-8, 5195-3, 35380-7 #### [facility] CLIA [id number] [address] [place] [address] [place] TRICHOMONAS VAGINALIS NAATon 05-23-2024 T. vaginalis DNA SAMSON+probe Ql (Unsp spec) Not detected Normal Not detected [facility] Comment on above: Order Comment: Speci men Type: BLOOD SPECIMEN Ordering Facility: [facility] Address: [address] [place] [address] Performed By: #### 3 024-7, 3053-6, 3016-3 #### [facility] CLIA [id number] [address] [place] [address] [place] TSH SerPl-aCncon 05-23-2024 TSH Qn 6.500 m[IU]/L High 0.270-4.200 [facility] Comment on above: Order Comment: Speci men Type: BLOOD SPECIMEN Ordering Facility: [facility] Address: [address] [place] [address] Result Comment: If t he patient is , TSH reference range varies by gestational period: First Trimester (weeks 9-12): 0.180-2.990 mIU/L Second Trimester: 0.110-3.980 mIU/L Third Trimester: 0.480-4.710 mIU/L Homer Caputo et al. A Practical Approach for the Verifications and Determination of Site- and Trimester-Specific Reference Intervals for Thyroid Function tests in . Thyroid, 2019:29:3:412-420. Moose E, et al. 2017 Guidelines of the [place] Thyroid Association for the Diagnosis and Management of Thyroid Disease during and the . Thyroid, 2017:27:3:315-389. Performed By: #### 7 3752-8, 5195-3, 26035-3 #### [facility] CLIA [id number] [address] [place] [address] CNPNon 05-05-2024 CNPN Telephone (OBGYWM) NENA LEIVA ([id number]) 1990 F Date Time Provider Department 05/05/24 DENAE RENTERIA During your visit today, we recorded the [...] up as well. Thank you, Denae Renteria APRN.Juliana Collins RN 05/05/2024 11:52 AM Signed Patient notified [...] Assessed Reason for Visit: Question (OB Question) [8611] Prescriptions as of 05/05/2024 - tirzepatide (MOUNJARO) 10 mg/0.5 mL pen injector Inject 10 mg subcutaneously one time a week. - DATA OFFICER THYROID 60 mg tablet TAKE 2 TABLETS [...] Encounter Status:Closed by JULIANA HUSTON on 05/05/24 [facility] LE[facility] ([id number]) 1990 F Date Time Provider Department 05/05/24 [facility] your visit today, we recorded [...] labs Please let her know congratulations!!! Miguelito Johntim Lisa Sullivan LPN 05/05/2024 5:08 PM Signed Pt. informed via My Chart. Allergies As of Date: 05/05/2024 Noted Allergy Reaction BEES 07/07/2008 7 - Swelling LATEX 07/07/2008 4 - Hives Date Reviewed: 07/20/2023 Reviewed by: Alyson Meza LPN - Fully Assessed Reason for Visit: Question [1327] Primary Visit Diagnosis:Hypothyroidi sm, acquired [E03.9] Order(s):THYROID STIMULATING HORMONE [SQTSH] Order #: [id number] FUTURE T4 FREE/FREE THYROXINE [SQFT4] Order #: [id number] FUTURE Prescriptions as of 05/05/2024 - tirzepatide (MOUNJARO) 10 mg/0.5 mL pen injector Inject 10 mg subcutaneously one time a week. - DATA OFFICER THYROID 60 mg tablet TAKE 2 TABLETS [...] by LISA LEÓN LPN on 05/05/24 Normal [facility] T3 SerPl-mCncon 04-04-2024 T3 [Mass/Vol] 72 ng/dL Low 79-165 [facility] Comment on above: Order Comment: Speci men Type: BLOOD SPECIMEN Ordering Facility: [facility] Address: [address] [place] [address] Performed By: #### 3 024-7, 305-6, 3015-3 #### [facility] CLIA [id number] [address] [place] [address] [place] T4 Free SerPl-mCncon 025 Free T4 [Mass/Vol] 0.9 ng/dL Normal 0.9-1.7 [facility] Comment on above: Order Comment: Selam walsh Type: BLOOD SPECIMEN Ordering Facility: [facility] Address: [address] [place] [address] Performed By: #### 3 024-7, 30504-17, 3 #### [facility] CLIA [id number] [address] [place] [address] [place] TSH SerPl-aCncon 04-04-2024 TSH Qn 2.590 m[IU]/L Normal 0.270-4.200 [facility] Comment on above: Order Comment: Selam walsh Type: BLOOD SPECIMEN Ordering Facility: [facility] Address: [address] [place] [address] Result Comment: If t he patient is , TSH reference range varies by gestational period: First Trimester (weeks 9-12): 0.180-2.990 mIU/L Second Trimester: 0.110-3.980 mIU/L Third Trimester: 0.480-4.710 mIU/L Homer Caputo et al. A Practical Approach for the Verifications and Determination of Site- and Trimester-Specific Reference Intervals for Thyroid Function tests in . Thyroid, 2019:29:3:412-420. Moose E, et al. 2017 Guidelines of the [place] Thyroid Association for the Diagnosis and Management of Thyroid Disease during and the . Thyroid, 2017:27:3:315-389. 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 Thank you for all you do! Miguelito Carpenter DO 03/18/2024 4:50 PM Signed I am not aware of any of this information with the [facility] pharmacy Recommend that she calls and asks the pharmacy specifically any questions DO Natasha Skelton Susan LPN 03/19/2024 8:58 AM Signed Pt. informed via My Chart Allergies As of Date: 03/11/2024 Noted Allergy Reaction BEES 07/07/2008 7 - Swelling LATEX 07/07/2008 4 - Hives Date Reviewed: 07/20/2023 Reviewed by: Alyson Meza LPN - Fully Assessed Reason for Visit: Patient Question [9237] Prescriptions as of 03/19/2024 - tirzepatide (MOUNJARO) [...] - cetirizine (ZYRTEC) 10 mg tablet - DATA OFFICER THYROID 60 mg tablet TAKE 2 TABLETS [...] Status:Closed by LISA LEÓN LPN on 03/19/24 [facility] 02-14-2024 [facility] Telephone (COURTNEY) NENA LEIVA ([id number]) 1990 F Date Time Provider Department 02/14/24 KAREN AZAR During your visit today, we recorded the following information about you: Karen Azar APRN.[facility] 02/14/2024 3:25 PM Signed Please call patient and let her know that thyroid labs are greatly improved from 2 months ago. T3 and T4 are normal, however TSH is still slightly elevated. No change in regimen unless pt is symptomatic. Please see how she is feeling. Thank you, Karen Azar APRN.MIKE LuceroCrystal rivasMORGAN 02/14/2024 3:53 PM Signed Pt informed via message MORGAN Oteroevelyn CrystalMORGAN 02/14/2024 4:23 PM Signed Please see pt message - I would say overall I feel better than a few months ago but I have noticed hair loss, feeling some fatigue and a lower sex drive than what I would consider normal for me. I wouldn?t be opposed to slightly changing things around to see if that improves? Thanks! Karen San APRN.MIKE 02/15/2024 10:27 AM Signed Go ahead and increase to 2.5 tablets 1-2 days per week. And let me know in 4-6 weeks how you are feeling. We can repeat labs then. Thank you, Karen Azar APRN.Piper Johnson LPN 02/15/2024 10:45 AM Signed Left message to return call. Glo Smith MA 02/18/2024 10:57 AM Signed Pt notified of results via Giggzo. Glo Smith Ma Allergies As of Date: 02/14/2024 Noted Allergy Reaction BEES 07/07/2008 7 - Swelling LATEX 07/07/2008 4 - Hives Date Reviewed: 07/20/2023 Reviewed by: Alyson Meza LPN - Fully Assessed Reason for Visit: Results [95] Primary Visit Diagnosis:Acquired hypothyroidism [E03.9] Order(s):THYROID STIMULATING HORMONE [SQTSH] Order #: [id number] FUTURE T3 [SQT3] Order #: [id number] FUTURE T4 FREE/FREE THYROXINE [SQFT4] Order #: [id number] FUTURE Prescriptions as of 02/18/2024 - tirzepatide [...] - cetirizine (ZYRTEC) 10 mg tablet - DATA OFFICER THYROID 60 mg tablet TAKE 2 TABLETS [...] Status:Closed by GLO SMITH on 02/18/24 Normal [facility] T3 SerPl-mCncon 02-04-2024 T3 [Mass/Vol] 87 ng/dL Normal 79-165 [facility] Comment on above: Order Comment: Speci men Type: BLOOD SPECIMEN Ordering Facility: [facility] Address: [address] [place] [address] Performed By: #### 7 3752-8, 5195-3, 73134-2 #### [facility] CLIA [id number] [address] [place] [address] [place] T4 Free SerPl-mCncon 024 Free T4 [Mass/Vol] 1.0 ng/dL Normal 0.9-1.7 [facility] Comment on above: Order Comment: Speci men Type: BLOOD SPECIMEN Ordering Facility: [facility] Address: [address] [place] [address] Performed By: #### 7 3752-8, 5195-3, 60420-3 #### [facility] CLIA [id number] [address] [place] [address] [place] TSH SerPl-aCncon 02-04-2024 TSH Qn 4.880 m[IU]/L High 0.270-4.200 [facility] Comment on above: Order Comment: Speci men Type: BLOOD SPECIMEN Ordering Facility: [facility] Address: [address] [place] [address] Result Comment: If t he patient is , TSH reference range varies by gestational period: First Trimester (weeks 9-12): 0.180-2.990 mIU/L Second Trimester: 0.110-3.980 mIU/L Third Trimester: 0.480-4.710 mIU/L Homer Caputo et al. A Practical Approach for the Verifications and Determination of Site- and Trimester-Specific Reference Intervals for Thyroid Function tests in . Thyroid, 2019:29:3:412-420. Moose Lopez, et al. 2017 Guidelines of the [place] Thyroid Association for the Diagnosis and Management of Thyroid Disease during and the . Thyroid, 2017:27:3:315-389. Performed By: #### 7 3752-8, 5195-3, 61412-7 #### [facility] CLIA [id number] [address] [place] [address] [place] CBC W Auto Differential pane l (Bld)on 07-20-2023 Basophils (Bld) [#/Vol] 0.09 10*3/uL [facility] Basophils/100 WBC (Bld) 0.8 % [facility] Differential cell count method Nom (Bld) Auto [facility] Eosinophils (Bld) [#/Vol] 0.41 10*3/uL [facility] Eosinophils/100 WBC (Bld) 3.5 % [facility] Erythrocyte distribution width (RBC) [Ratio] 13.1 % 11.5 - 15.0 % [facility] Hematocrit (Bld) [Volume fraction] 46.6 % High 36.0 - 46.0 % [facility] Hemoglobin (Bld) [Mass/Vol] 15.0 g/dL 11.5 - 15.5 g/dL [facility] Immature granulocytes (Bld) [#/Vol] 0.03 10*3/uL [facility] Immature granulocytes/100 WBC (Bld) 0.3 % [facility] Interpretation and review of laboratory results Abnormal [facility] Lymphocytes (Bld) [#/Vol] 3.24 10*3/uL [facility] Lymphocytes/100 WBC (Bld) 27.4 % [facility] MCH (RBC) [Entitic mass] 26.5 pg 26.0 - 34.0 pg [facility] MCHC (RBC) [Mass/Vol] 32.2 g/dL 30.5 - 36.0 g/dL [facility] MCV (RBC) [Entitic vol] 82.5 fL 80.0 - 100.0 fL [facility] Monocytes (Bld) [#/Vol] 0.73 10*3/uL NINF [facility] Monocytes/100 WBC (Bld) 6.2 % [facility] Neutrophils (Bld) [#/Vol] 7.33 10*3/uL [facility] Neutrophils/100 WBC (Bld) 61.8 % [facility] Nucleated RBC (Bld) [#/Vol] NINF [facility] Nucleated RBC/100 WBC (Bld) [Ratio] 0.0 % /100 WBC [facility] Platelet mean volume (Bld) [Entitic vol] 10.0 fL 9.0 - 12.7 fL [facility] Platelets (Bld) [#/Vol] 329 10*3/uL [facility] RBC (Bld) [#/Vol] 5.65 10*6/uL High 3.90 - 5.2 0 m/uL [facility] WBC (Bld) [#/Vol] 11.83 10*3/uL [facility] Comprehensive metabolic 2000 panelon 07-20-2023 Albumin [Mass/Vol] 4.8 g/dL 3.9 - 4.9 g/dL [facility] ALP [Catalytic activity/Vol] 82 U/L 34 - 123 U/L [facility] ALT [Catalytic activity/Vol] 13 U/L 7 - 38 U/L [facility] Anion gap [Moles/Vol] 15 mmol/L 8 - 15 mmol/L [facility] AST [Catalytic activity/Vol] 17 U/L 13 - 35 U/L [facility] Bilirubin [Mass/Vol] 0.6 mg/dL 0.2 - 1.3 mg/dL [facility] Calcium [Mass/Vol] 9.8 mg/dL 8.5 - 10. 2 mg/dL [facility] Chloride [Moles/Vol] 101 mmol/L 98 - 107 mmol/L [facility] CO2 [Moles/Vol] 22 mmol/L 22 - 30 mmol/L [facility] Creatinine [Mass/Vol] 0.94 mg/dL 0.58 - 0.96 mg/dL [facility] GFR/1.73 sq M.predicted among non-blacks MDRD (S/P/Bld) [Vol rate/Area] 82 mL/min/{1.73_m2} - PINF [facility] Comment on above: Estimated Glomerular Filtration [...] [Mass/Vol] 92 mg/dL 74 - 99 mg/dL [facility] Comment on above: The [place] Diabete s Association (ADA) provides guidance for [...] Standards of Medical Care in Diabetes 2016, [place] Diabetes Association. Diabetes Care. 2016.39(Suppl 1). Interpretation and review of laboratory results Normal [facility] Potassium [Moles/Vol] 4.7 mmol/L 3.7 - 5.1 mmol/L [facility] Protein [Mass/Vol] 7.6 g/dL 6.3 - 8.0 g/dL Cl [facility] Sodium [Moles/Vol] 138 mmol/L 136 - 144 mmol/L [facility] Urea nitrogen [Mass/Vol] 14 mg/dL 7 - 21 mg/dL [facility] Free T3 [Mass/Vol]on 024 Interpretation and review of laboratory results Abnormal [facility] Free T4 [Mass/Vol]on 024 Interpretation and review of laboratory results Normal [facility] HbA1c (Bld)on 07-20-2023 Average glucose Estimated from glycated hemoglobin (Bld) [Mass/Vol] 94 mg/dL [facility] Comment on above: eAG: (Estimated aver age glucose) is a calculated value from HgbA1c and is outbound telemarketing representative of the average blood glucose level in the last 2-3 month period. HbA1c (Bld) [Mass fraction] 4.9 % 4.3 - 5.6 % [facility] Comment on above: [place] Diabetes As sociation guidelines indicate that patients with HgbA1c in the range 5.7-6.4% are at increased risk for development of diabetes, and intervention by lifestyle modification may be beneficial. HgbA1c greater or equal to 6.5% is considered diagnostic of diabetes. [facility] Lipid 1996 panelon 4 Cholesterol [Mass/Vol] 182 mg/dL NINF - 200 mg/dL [facility] Comment on above: <200 mg/dL, Desirabl e 200-239 mg/dL, Borderline high >239 mg/dL, High Cholesterol in HDL [Mass/Vol] 53 mg/dL 39 - PINF mg/dL [facility] Comment on above: 40-59 mg/dL, Accepta ble >59 mg/dL, High: Negative risk factor for coronary heart disease <40 mg/dL, Low: Positive risk factor for coronary heart disease Cholesterol in LDL [Mass/Vol] 117 mg/dL High NINF - 100 mg/dL [facility] Comment on above: <100 mg/dL, Optimal 100-129 mg/dL, Near optimal/above optimal 130-159 mg/dL, Borderline high 160-189 mg/dL, High >189 mg/dL, Very high Secondary prevention optimal LDL Cholesterol levels are recommended to be < 70 mg/dL Cholesterol in LDL/Cholesterol in HDL [Mass ratio] 2.21 {ratio} NINF - 2.54 [facility] Comment on above: Reference: 1. National Cholesterol Education Program ATP III Guideline At-A-Glance Quick Desk Reference: National Heart, Lung, and Blood [place]. National Institutes of Health. 2001: NIH Publication No. 01-3305. 2. An International Atherosclerosis Society position paper: global recommendations for the management of dyslipidemia: executive summary, Atherosclerosis. 2014: 232(2):410-413. Cholesterol in VLDL [Mass/Vol] 12 mg/dL NINF - 30 mg/dL [facility] Cholesterol non HDL [Mass/Vol] 129 mg/dL NINF - 130 mg/dL [facility] Comment on above: <130 mg/dL, Optimal 130-159 mg/dL, Near optimal/above optimal 160-189 mg/dL, Borderline high 190-219 mg/dL, High >219 mg/dL, Very high Secondary prevention optimal non HDL Cholesterol levels are recommended to be <100 mg/dL Cholesterol.total/Ch olesterol in HDL [Mass ratio] 3.43 {ratio} NINF - 5.10 [facility] Fasting Time 16 hrs [facility] Interpretation and review of laboratory results Abnormal [facility] Triglyceride [Mass/Vol] 61 mg/dL NINF - 150 mg/dL [facility] Comment on above: <150 mg/dL, Normal 150-199 mg/dL, Borderline high 200-499 mg/dL, High >499 mg/dL, Very high No Panel Informationon 07-19 [facility] T3, FREEon 07-20-2023 Free T3 [Mass/Vol] 6.2 pg/mL High 2.3 - 4.1 pg/mL [facility] T4 FREE/FREE THYROXINEon Free T4 [Mass/Vol] 1.1 ng/dL 0.9 - 1.7 ng/dL [facility] THYROID STIMULATING HORMONEo n 07-20-2023 TSH Qn 4.760 m[IU]/L High [facility] Comment on above: If the patient [...] Lopez, et al. 2017 Guidelines of the [place] Thyroid Association for the Diagnosis and Management of Thyroid Disease during and the . Thyroid, 2017:27:3:315-389. TSH Qnon 07-20-2023 Interpretation and review of laboratory results Abnormal [facility] CBC W Auto Differential pane l (Bld)on 09-22-2022 Basophils (Bld) [#/Vol] 0.05 10*3/uL <0.11 k/uL [facility] Basophils/100 WBC (Bld) 0.6 % [facility] Differential cell count method Nom (Bld) Auto [facility] Eosinophils (Bld) [#/Vol] 0.26 10*3/uL <0.46 k/uL [facility] Eosinophils/100 WBC (Bld) 3.1 % [facility] Erythrocyte distribution width (RBC) [Ratio] 12.8 % 11.5 - 15.0 % [facility] Hematocrit (Bld) [Volume fraction] 43.2 % 36.0 - 46.0 % [facility] Hemoglobin (Bld) [Mass/Vol] 14.1 g/dL 11.5 - 15.5 g/dL [facility] Immature granulocytes (Bld) [#/Vol] <0.10 k/uL [facility] Immature granulocytes/100 WBC (Bld) 0.2 % [facility] Lymphocytes (Bld) [#/Vol] 2.62 10*3/uL 1.00 - 4.00 k/uL [facility] Lymphocytes/100 WBC (Bld) 31.3 % [facility] MCH (RBC) [Entitic mass] 28.0 pg 26.0 - 34.0 pg [facility] MCHC (RBC) [Mass/Vol] 32.6 g/dL 30.5 - 36.0 g/dL [facility] MCV (RBC) [Entitic vol] 85.7 fL 80.0 - 100.0 fL [facility] Monocytes (Bld) [#/Vol] 0.62 10*3/uL <0.87 k/uL [facility] Monocytes/100 WBC (Bld) 7.4 % [facility] Neutrophils (Bld) [#/Vol] 4.80 10*3/uL 1.45 - 7.50 k/uL [facility] Neutrophils/100 WBC (Bld) 57.4 % [facility] Nucleated RBC (Bld) [#/Vol] <0.01 k/uL [facility] Nucleated RBC/100 WBC (Bld) [Ratio] 0.0 /100 WBC [facility] Platelet mean volume (Bld) [Entitic vol] 10.4 fL 9.0 - 12.7 fL [facility] Platelets (Bld) [#/Vol] 278 10*3/uL 150 - 400 k/uL [facility] RBC (Bld) [#/Vol] 5.04 10*6/uL 3.90 - 5.2 0 m/uL [facility] WBC (Bld) [#/Vol] 8.37 10*3/uL 3.70 - 11. 00 k/uL [facility] Comprehensive metabolic 2000 panelon 09-22-2022 Albumin [Mass/Vol] 4.4 g/dL 3.9 - 4.9 g/dL [facility] ALP [Catalytic activity/Vol] 68 U/L 34 - 123 U/L [facility] ALT [Catalytic activity/Vol] 16 U/L 7 - 38 U/L [facility] Anion gap [Moles/Vol] 10 mmol/L 9 - 18 mmol/L [facility] AST [Catalytic activity/Vol] 22 U/L 13 - 35 U/L [facility] Bilirubin [Mass/Vol] 0.4 mg/dL 0.2 - 1.3 mg/dL [facility] Calcium [Mass/Vol] 9.5 mg/dL 8.5 - 10. 2 mg/dL [facility] Chloride [Moles/Vol] 104 mmol/L 97 - 105 mmol/L [facility] CO2 [Moles/Vol] 25 mmol/L 22 - 30 mmol/L [facility] Creatinine [Mass/Vol] 0.81 mg/dL 0.58 - 0.96 mg/dL [facility] Estimated Glomerular Filtration Rate 98 mL/min/1.73m >=60 mL/min/1.73m [facility] Glucose [Mass/Vol] 101 mg/dL High 74 - 99 mg/dL [facility] Potassium [Moles/Vol] 4.1 mmol/L 3.7 - 5.1 mmol/L [facility] Protein [Mass/Vol] 6.9 g/dL 6.3 - 8.0 g/dL [facility] Sodium [Moles/Vol] 139 mmol/L 136 - 144 mmol/L [facility] Urea nitrogen [Mass/Vol] 14 mg/dL 7 - 21 mg/dL [facility] HbA1c (Bld)on 09-22-2022 Average glucose Estimated from glycated hemoglobin (Bld) [Mass/Vol] 97 mg/dL [facility] HbA1c (Bld) [Mass fraction] 5.0 % 4.3 - 5.6 % [facility] Lipid 1996 panelon 3 Cholesterol [Mass/Vol] 174 mg/dL <200 mg/dL [facility] Cholesterol in HDL [Mass/Vol] 55 mg/dL >39 mg/dL [facility] Cholesterol in LDL [Mass/Vol] 97 mg/dL <100 mg/dL [facility] Cholesterol in LDL/Cholesterol in HDL [Mass ratio] 1.76 {ratio} <2.54 [facility] Cholesterol in VLDL [Mass/Vol] 22 mg/dL <30 mg/dL [facility] Cholesterol non HDL [Mass/Vol] 119 mg/dL <130 mg/dL [facility] Cholesterol.total/Ch olesterol in HDL [Mass ratio] 3.16 {ratio} <5.10 [facility] Fasting Time 14 hrs [facility] Triglyceride [Mass/Vol] 108 mg/dL <150 mg/dL [facility] XR Foot - left AP and Latera l and obliqueon 04-06-2020 IMPRESSION: No acute osseous abnormality identified. [employer]: PSCB Transcribe Date/Time: Apr 06 2020 9:59A Dictated by : NANDO SWIFT MD This examination was interpreted and the report reviewed and electronically signed by: NANDO SWIFT MD on Apr 06 2020 10:04AM [facility] DIVISION OF RADIOLOGY * * *Final Report* [...] tissue abnormality identified. DIVISION OF RADIOLOGY Provider, [facility] - 04/06/2020 * * *Final Report* * [...] IMPRESSION IMPRESSION: No acute osseous abnormality identified. [employer] Cox[employer]: PSCB Transcribe Date/Time: Apr 06 2020 9:59A Dictated by : NANDO SWIFT MD This examination was interpreted and the report reviewed and electronically signed by: NANDO SWIFT MD on Apr 06 2020 10:04AM EST [facility] Radiology Study observation (narrative) [facility] XR Foot - left AP and Latera l and obliqueOrdered By: [facility] Provider on 04-06-2020 [facility] Vital Signs Date Time Vital Sign Value Performing Clinician Facility 10-29-2024 10:58-0400 Body mass index (BMI) [Ratio] 39.18 kg/m2 Kristen Smith MD Work Phone: [facility] 10-29-2024 10:58-0400 Body weight 107.96 kg Kristen Smith MD Work Phone: [facility] 10-29-2024 10:58-0400 Diastolic blood pressure 68 mm[Hg] Kristen Smith MD Work Phone: [facility] 10-29-2024 10:58-0400 Systolic blood pressure 100 mm[Hg] Kristen Smith MD Work Phone: [facility] 10-15-2024 14:38-0400 Body mass index (BMI) [Ratio] 39.18 kg/m2 Lauren Madera APRN.[employer] MA[employer] SHEETS SUPERVISOR Work Phone: [facility] 10-15-2024 14:38-0400 Body weight 107.96 kg Lauren Madera APRN.[employer] MA[employer] SHEETS SUPERVISOR Work Phone: [facility] 10-15-2024 14:38-0400 Diastolic blood pressure 80 mm[Hg] Lauren Matakim CARPENTER.M[employer] MAKING [employer] SHEETS SUPERVISOR Work Phone: [facility] 10-15-2024 14:38-0400 Systolic blood pressure 120 mm[Hg] Lauren Matakim CARPENTER.M[employer] MAKING [employer] SHEETS SUPERVISOR Work Phone: [facility] 08-23-2024 08:41-0400 Body height 166 cm Miguelito Champion DO Work Phone: [facility] 08-23-2024 08:41-0400 Body mass index (BMI) [Ratio] 37.4 kg/m2 Miguelito Champion DO Work Phone: [facility] 08-23-2024 08:41-0400 Body temperature 98.01 [degF] Miguelito Champion DO Work Phone: [facility] 08-23-2024 08:41-0400 Body weight 103.06 kg Miguelito Champion DO Work Phone: [facility] 08-23-2024 08:41-0400 Diastolic blood pressure 67 mm[Hg] Miguelito Champion DO Work Phone: [facility] Comment on above: bp machine 08-23-2024 08:41-0400 Heart rate 85 /min Miguelito Champion DO Work Phone: [facility] 08-23-2024 08:41-0400 SaO2% (BldA) [Mass fraction] 97 % Miguelito Champion DO Work Phone: [facility] 08-23-2024 08:41-0400 Systolic blood pressure 106 mm[Hg] Miguelito Champion DO Work Phone: [facility] Comment on above: bp machine 08-22-2024 15:56-0400 Body mass index (BMI) [Ratio] 38.12 kg/m2 Joe Boyce MD Work Phone: [facility] 08-22-2024 15:56-0400 Body weight 103.78 kg Joe Boyce MD Work Phone: [facility] 08-22-2024 15:56-0400 Diastolic blood pressure 70 mm[Hg] Joe Boyce MD Work Phone: [facility] 08-22-2024 15:56-0400 Systolic blood pressure 116 mm[Hg] Joe Boyce MD Work Phone: [facility] 07-25-2024 11:48-0400 Diastolic blood pressure 64 mm[Hg] Denae Renteria CANE LOADER.CNM Work Phone: [facility] 07-25-2024 11:48-0400 Systolic blood pressure 112 mm[Hg] Denae Renteria CANE LOADER.CNM Work Phone: [facility] 05-23-2024 08:12-0400 Body mass index (BMI) [Ratio] 35.59 kg/m2 Shiloh Beachwood CANE LOADER.M[employer] MA[employer] SHEETS SUPERVISOR Work Phone: [facility] 05-23-2024 08:12-0400 Body weight 96.89 kg Shiloh Khoi CANE LOADER.M[employer] MAKING [employer] SHEETS SUPERVISOR Work Phone: [facility] 05-23-2024 08:12-0400 Diastolic blood pressure 62 mm[Hg] Shiloh Khoi CANE LOADER.[employer] MAKING [employer] SHEETS SUPERVISOR Work Phone: [facility] 05-23-2024 08:12-0400 Systolic blood pressure 110 mm[Hg] Shiloh Beachwood CANE LOADER.M[employer] MAKING [employer] SHEETS SUPERVISOR Work Phone: [facility] 07-20-2023 12:38-0400 Body height 165 cm Miguelito Champion DO Work Phone: [facility] 07-20-2023 12:38-0400 Body mass index (BMI) [Ratio] 37.79 kg/m2 Miguelito Champion DO Work Phone: [facility] 07-20-2023 12:38-0400 Body temperature 96.91 [degF] Miguelito Champion DO Work Phone: [facility] 07-20-2023 12:38-0400 Body weight 102.88 kg Miguelito Champion DO Work Phone: [facility] 07-20-2023 12:38-0400 Diastolic blood pressure 78 mm[Hg] Miguelito Champion DO Work Phone: [facility] 07-20-2023 12:38-0400 Heart rate 105 /min Miguelito Champion DO Work Phone: [facility] 07-20-2023 12:38-0400 Respiratory rate 16 /min Miguelito Champion DO Work Phone: [facility] 07-20-2023 12:38-0400 SaO2% (BldA) [Mass fraction] 99 % Miguelito Champion DO Work Phone: [facility] 07-20-2023 12:38-0400 Systolic blood pressure 104 mm[Hg] Miguelito Champion DO Work Phone: [facility] 09-22-2022 08:13-0400 Body height 164 cm Karen Azar CANE LOADER.[employer] MAKING [employer] SHEETS SUPERVISOR Work Phone: [facility] 09-22-2022 08:13-0400 Body weight 111.31 kg Karen Azar CANE LOADER.M[employer] MAKING [employer] SHEETS SUPERVISOR Work Phone: [facility] 09-22-2022 08:13-0400 Diastolic blood pressure 70 mm[Hg] Karen Azar CANE LOADER.M[employer] MAKING [employer] SHEETS SUPERVISOR Work Phone: [facility] 09-22-2022 08:13-0400 Heart rate 64 /min Karen Azar CANE LOADER.M[employer] MAKING [employer] SHEETS SUPERVISOR Work Phone: [facility] 09-22-2022 08:13-0400 Respiratory rate 12 /min Karen Azar CANE LOADER.M[employer] MAKING [employer] SHEETS SUPERVISOR Work Phone: [facility] 09-22-2022 08:13-0400 Systolic blood pressure 118 mm[Hg] Karen Azar CANE LOADER.M[employer] MAKING [employer] SHEETS SUPERVISOR Work Phone: [facility] 06-13-2022 19:44-0400 Body temperature 98.01 [degF] Paula Lang PA-C Work Phone: [facility] 06-13-2022 19:44-0400 Body weight 112.49 kg Paula Athy PA-C Work Phone: [facility] 06-13-2022 19:44-0400 Diastolic blood pressure 72 mm[Hg] Paula Athy PA-C Work Phone: [facility] 06-13-2022 19:44-0400 Heart rate 90 /min Paula Athy PA-C Work Phone: [facility] 06-13-2022 19:44-0400 Respiratory rate 16 /min Paula Athy PA-C Work Phone: [facility] 06-13-2022 19:44-0400 SaO2% (BldA) [Mass fraction] 99 % Paula Athy PA-C Work Phone: [facility] 06-13-2022 19:44-0400 Systolic blood pressure 122 mm[Hg] Paula Athy PA-C Work Phone: [facility] 07-06-2021 07:39-0400 Body height 164.5 cm Miguelito Champion DO Work Phone: [facility] 07-06-2021 07:39-0400 Body temperature 97.5 [degF] Miguelito Champion DO Work Phone: [facility] 07-06-2021 07:39-0400 Body weight 103.87 kg Miguelito Champion DO Work Phone: [facility] 07-06-2021 07:39-0400 Diastolic blood pressure 70 mm[Hg] Miguelito Champion DO Work Phone: [facility] 07-06-2021 07:39-0400 Heart rate 80 /min Miguelito Champion DO Work Phone: [facility] 07-06-2021 07:39-0400 Respiratory rate 16 /min Miguelito Champion DO Work Phone: [facility] 07-06-2021 07:39-0400 Systolic blood pressure 120 mm[Hg] Miguelito Champion DO Work Phone: [facility] Encounters Encounter Date Encounter Type Care Provider Facility Start: 12-25-2024 End: 12-25-2024 ambulatory MIGUELITO L CHAMPION Facility:[facility] Start: 12-23-2024 End: 12-23-2024 ambulatory Denae Renteria Facility:[facility] Start: 12-18-2024 End: 12-18-2024 ambulatory MIGUELITO L CHAMPION Facility:[facility] Start: 12-11-2024 End: 12-11-2024 ambulatory MIGUELITO L CHAMPION Facility:[facility] Start: 12-11-2024 End: 12-11-2024 ambulatory MIGUELITO L CHAMPION Facility:[facility] Start: 11-27-2024 End: 11-27-2024 ambulatory MIGUELITO L CHAMPION Facility:[facility] Start: 11-12-2024 End: 11-12-2024 ambulatory MIGUELITO L CHAMPION Facility:[facility] Start: 11-12-2024 End: 11-12-2024 ambulatory MIGUELITO L CHAMPION Facility:[facility] Start: 10-29-2024 End: 10-29-2024 Telephone encounter Lianna Moreno MD Work Phone: OB/Gynecology Comment on above: Breast Pump RX Start: 10-29-2024 End: 10-29-2024 Patient encounter procedure Kristen Smith MD Work Phone: OB/Gynecology Comment on above: 30 weeks gestation o f ([facility]) (Primary Dx); Supervision of high risk in second trimester ([facility]); Twin with single intrauterine , first trimester, fetus 1 ([facility]); AMA (advanced maternal age) multigravida 35+, second trimester ([facility]); Obesity affecting in second trimester, unspecified obesity type ([facility]) Start: 10-29-2024 End: 10-29-2024 ambulatory MIGUELITO L CHAMPION Facility:[facility] Start: 10-24-2024 End: 10-27-2024 ambulatory Miguelito L Champion DO Work Phone: [facility] Comment on above: Thyroid labs Results Start: 10-24-2024 End: 10-27-2024 E-mail encounter from caregiver [facility] Provider [facility] Start: 10-24-2024 End: 10-24-2024 Telephone encounter Miguelito Champion DO Work Phone: [facility] Start: 10-15-2024 End: 10-15-2024 Patient encounter procedure Lauren Madera APRN.CNP Work Phone: OB/Gynecology Comment on above: Supervision of high risk in second trimester (HCC) (Primary Dx); 28 weeks gestation of ([facility]); Twin with single intrauterine , first trimester, fetus 1 ([facility]); AMA (advanced maternal age) multigravida 35+, second trimester ([facility]); Obesity affecting in second trimester, unspecified obesity type ([facility]); Hypothyroidism affecting in second trimester ([facility]); Rh negative state in antepartum period ([facility]); High-risk , multigravida of advanced maternal age, antepartum (HCC) High-risk , multigravida of advanced maternal age, antepartum ([facility]); 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 ([facility]); Class 2 obesity without serious comorbidity with body mass index (BMI) of 37.0 to 37.9 in adult, unspecified obesity type Start: 10-15-2024 End: 10-16-2024 ambulatory Lauren Madera APRN.CNP Work Phone: OB/Gynecology Comment on above: Hospital Form Start: 10-11-2024 End: 10-16-2024 Refill Miguelito Harshal Champion DO Work Phone: [facility] Comment on above: Refill Request Start: 09-19-2024 End: 09-19-2024 ambulatory MIGUELITO OROZCORISON Facility:[facility] Start: 09-18-2024 End: 09-18-2024 ambulatory MIGUELITO L CHAMPION Facility:[facility] Start: 08-23-2024 Encounter for genera l adult medical examination without abnormal findings MIGUELITO CHAMPION [facility] Start: 08-23-2024 End: 08-23-2024 Patient encounter procedure Miguelito Champion DO Work Phone: [facility] [place] Comment on above: Wellness examination (Primary Dx); Screening for depression; Encounter for screening examination for other mental health and behavioral disorders; Acquired hypothyroidism; 20 weeks gestation of ([facility]) Start: 08-23-2024 End: 08-23-2024 Patient encounter status Miguelito Harshal Chapmion Work Phone: [facility] Start: 08-23-2024 End: 08-23-2024 ambulatory MIGUELITO CHAMPION Facility:[facility] Start: 08-22-2024 End: 08-22-2024 ambulatory MIGUELITO CHAMPION Facility:[facility] Start: 08-22-2024 End: 08-22-2024 Patient encounter procedure [employer]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 [facility] Comment on above: Family history of co ngenital heart defect (Primary Dx); with uncertain dates in first trimester ([facility]); High-risk , multigravida of advanced maternal age, antepartum ([facility]); 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 ([facility]); Class 2 obesity without serious comorbidity with body mass index (BMI) of 37.0 to 37.9 in adult, unspecified obesity type Twin with single intrauterine , first trimester, fetus 1 (HCC) (Primary Dx); 20 weeks gestation of ([facility]); Supervision of high risk in second trimester ([facility]); AMA (advanced maternal age) multigravida 35+, second trimester ([facility]); Obesity affecting in second trimester, unspecified obesity type (HCC); High-risk , multigravida of advanced maternal age, antepartum ([facility]) Start: 08-22-2024 End: 08-22-2024 ambulatory MIGUELITO CHAMPION Facility:[facility] Start: 07-25-2024 End: 09-24-2024 Follow-up encounter Kristen Smith MD Work Phone: OB/Gynecology Start: 07-25-2024 End: 07-25-2024 ambulatory MIGUELITO CHAMPION Facility:[facility] Start: 07-25-2024 End: 07-25-2024 Patient encounter procedure Wh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 [facility] Comment on above: screening for malformation using ultrasonics ([facility]) (Primary Dx); Obesity affecting in second trimester, unspecified obesity type (HCC); Twin with single intrauterine , first trimester, fetus 1 (HCC); 16 weeks gestation of ([facility]) Supervision of high risk in second trimester ([facility]) (Primary Dx); 16 weeks gestation of ([facility]); Twin with single intrauterine , first trimester, fetus 1 ([facility]); Obesity affecting in second trimester, unspecified obesity type ([facility]); AMA (advanced maternal age) multigravida 35+, second trimester ([facility]); Hypothyroidism affecting in second trimester ([facility]) Start: 07-15-2024 End: 09-14-2024 Follow-up encounter Miguelito L Champion DO Work Phone: [facility] [place] Start: 07-09-2024 End: 07-09-2024 ambulatory Joe Boyce MD Work Phone: OB/Gynecology Start: 07-09-2024 End: 07-09-2024 Follow-up encounter Joe Boyce MD Work Phone: OB/Gynecology Comment on above: Follow up Start: 07-04-2024 End: 07-04-2024 ambulatory MIGUELITO L CHAMPION Facility:[facility] Start: 07-04-2024 End: 07-04-2024 ambulatory MIGUELITO L CHAMPION Facility:[facility] Start: 07-04-2024 End: 07-08-2024 Telephone encounter Joe Boyce MD Work Phone: OB/Gynecology Comment on above: Appointment; Orders Start: 06-12-2024 End: 06-12-2024 ambulatory MIGUELITO L CHAMPION Facility:[facility] Start: 06-05-2024 End: 06-05-2024 ambulatory MIGUELITO L CHAMPION Facility:[facility] Start: 05-26-2024 End: 05-26-2024 Refill Miguelito L Champion DO Work Phone: [facility] Comment on above: Refill Request Start: 05-24-2024 End: 05-26-2024 Telephone encounter Miguelito L Champion DO Work Phone: [facility] Comment on above: Results (/) Start: 05-23-2024 End: 07-23-2024 Follow-up encounter Shiloh Westfall APRN.CNP Work Phone: OB/Gynecology Start: 05-23-2024 End: 05-26-2024 ambulatory Miguelito L Champion DO Work Phone: [facility] [place] Comment on above: Thyroid labs Start: 05-23-2024 End: 05-23-2024 Patient encounter procedure Shilohfredrick SousaKhoiolga CARPENTER.M[employer] MAKING [employer] SHEETS SUPERVISOR Work Phone: OB/Gynecology Comment on above: High-risk [...] 04-07-2024 End: 04-14-2024 Follow-up encounter Karen Azar APRN.MOLD MAKING [employer] SHEETS SUPERVISOR Work Phone: [facility] [place] Comment on above: Acquired hypothyroid ism Start: 04-04-2024 End: 04-04-2024 ambulatory MIGUELITO L CHAMPION Facility:[facility] Start: 03-11-2024 End: 03-19-2024 Telephone encounter Miguelito L Champion DO Work Phone: [facility] Comment on above: Patient Question Start: 03-10-2024 End: 03-11-2024 ambulatory Miguelito L Champion DO Work Phone: [facility] Comment on above: Med Question Start: 02-15-2024 End: 02-15-2024 ambulatory Miguelito L Champion DO Work Phone: [facility] Comment on above: Thyroid labs Start: 02-14-2024 End: 02-18-2024 Telephone encounter Karen Azar CANE LOADER.MOLD MAKING P[employer] SHEETS SUPERVISOR Work Phone: [facility] [place] Comment on above: Results Start: 02-04-2024 End: 02-04-2024 ambulatory MIGUELITO Harshal CHAMPION Facility:[facility] Start: 01-16-2024 End: 01-16-2024 Get Medical Advice Miguelito L Champion DO Work Phone: [facility] [place] Comment on above: Lab orders Start: 12-12-2023 End: 12-20-2023 ambulatory Miguelito Harshal OroczoChampion DO Work Phone: [facility] Comment on above: labs Start: 11-21-2023 End: 11-21-2023 ambulatory Miguelito Harshal OrozcoChampion DO Work Phone: [facility] [place] Comment on above: Lab results Start: 11-21-2023 End: 11-23-2023 Telephone encounter Miguelito Orozcorison DO Work Phone: [facility] [place] Comment on above: Results (thyroid) Start: 10-03-2023 End: 10-04-2023 ambulatory Miguelito Orozcorison DO Work Phone: [facility] Comment on above: vermox Start: 09-22-2023 Telephone encounter Miguelito Pierce arrison DO Work Phone: [facility] [place] Comment on above: Medication Request Start: 08-08-2023 Telephone encounter Miguelito Pierce arrison DO Work Phone: [facility] [facility] Start: 07-21-2023 End: 05-23-2024 Patient encounter status Miguelito Orozcorison DO Work Phone: [facility] Start: 07-20-2023 End: 07-20-2023 Patient encounter procedure Miguelito L Champion DO Work Phone: [facility] Comment on above: Wellness examination (Primary Dx); Acquired hypothyroidism; Class 2 obesity with body mass index (BMI) of 37.0 to 37.9 in adult, unspecified obesity type, unspecified whether serious comorbidity present Start: 07-20-2023 End: 07-20-2023 Patient encounter status Miguelito L Champion DO Work Phone: [facility] Work Phone: Start: 03-31-2023 Refill Karen Azar CANE LOADER.[employer] MAKING [employer] SHEETS SUPERVISOR Work Phone: [facility] [place] Comment on above: Refill Request Start: 03-22-2023 ambulatory Miguelito bryson DO Work Phone: [facility] [place] Comment on above: Weight loss Start: 03-22-2023 Telephone encounter Miguelito aponte DO Work Phone: [facility] Comment on above: Patient Question Start: 10-31-2022 ambulatory Miguelito bryson DO Work Phone: [facility] Comment on above: Thyroid meds Start: 10-31-2022 Telephone encounter Miguelito aponte DO Work Phone: [facility] [place] Comment on above: Thyroid Problem Start: 10-20-2022 ambulatory Miguelito bryson DO Work Phone: [facility] Comment on above: 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 Start: 10-20-2022 Telephone encounter Miguelito aponte DO Work Phone: [facility] Comment on above: Medication Problem Start: 10-13-2022 Refill Karen Azar CANE LOADER.MOLD MAKING [employer] SHEETS SUPERVISOR Work Phone: [facility] Comment on above: Med Change Request Start: 10-05-2022 Telephone encounter Miguelito aponte DO Work Phone: [facility] Start: 09-29-2022 ambulatory Miguelito bryson DO Work Phone: [facility] [place] Comment on above: Labs Start: 09-23-2022 Telephone encounter Miguelito aponte DO Work Phone: [facility] [place] Comment on above: Results Start: 09-22-2022 ambulatory Miguelito bryson DO Work Phone: [facility] [place] Comment on above: Thyroid labs Start: 09-22-2022 End: 09-22-2022 Patient encounter procedure Karentim Azar CANE LOADER.MOLD MAKING [employer] SHEETS SUPERVISOR Work Phone: [facility] [place] Comment on above: Wellness examination (Primary Dx); Acquired hypothyroidism Start: 09-22-2022 End: 09-22-2022 Patient encounter status Karen Azar APRN.MOLD MAKING [employer] SHEETS SUPERVISOR Work Phone: [facility] Work Phone: Start: 08-28-2022 Patient encounter status Bc Champion DO Work Phone: [facility] Work Phone: Start: 08-28-2022 Telephone encounter Miguelito aponte DO Work Phone: [facility] [place] Comment on above: Patient Question Start: 08-27-2022 ambulatory Miguelito bryson DO Work Phone: [facility] [place] Comment on above: Yearly Health Screen ing Start: 07-03-2022 Telephone encounter Miguelito aponte DO Work Phone: [facility] Comment on above: Results Start: 06-25-2022 ambulatory Miguelito bryson DO Work Phone: [facility] [place] Comment on above: Labs Start: 06-13-2022 End: 06-13-2022 Patient encounter procedure Paula Lang PA-C Work Phone: [facility] Comment on above: Cat scratch of forea rm, left, initial encounter (Primary Dx) Start: 03-10-2022 ambulatory Miguelito bryson DO Work Phone: [facility] Start: 03-10-2022 Patient encounter procedure Miguelito Champion DO Work Phone: [facility] Comment on above: Appointment Start: 12-09-2021 Refill Karen yap APRN.MOLD MAKING [employer] SHEETS SUPERVISOR Work Phone: [facility] [place] Comment on above: Refill Request Start: 08-07-2021 ambulatory Miguelito bryson DO Work Phone: [facility] [place] Comment on above: Insurance Form Start: 07-06-2021 End: 07-06-2021 Patient encounter procedure Miguelito L Champion DO Work Phone: [facility] [place] Comment on above: Wellness examination (Primary Dx); Acquired hypothyroidism Start: 07-06-2021 End: 07-06-2021 Patient encounter status Miguelito Champion DO Work Phone: [facility] Start: 06-13-2021 Refill Karen Zur[place] k CANE LOADER.MOLD MAKING PLAST[employer] SHEETS SUPERVISOR Work Phone: [facility] Comment on above: Refill Request Start: 05-21-2021 Refill Karen Zuraw[place] k CANE LOADER.MOLD MAKING PLAST[employer] SHEETS SUPERVISOR Work Phone: [facility] Comment on above: Refill Request Start: 05-18-2021 Telephone encounter Karen moreno CANE LOADER.MOLD MAKING PLAST[employer] SHEETS SUPERVISOR Work Phone: [facility] [place] Comment on above: Results Start: 05-03-2021 Refill Karen Zuraw[place] k CANE LOADER.MOLD MAKING PLAST[employer] SHEETS SUPERVISOR Work Phone: [facility] [place] Comment on above: Refill Request Start: 04-29-2021 Patient encounter status Giovanni Dobbins MD Work Phone: [facility] Start: 04-29-2021 Refill Jorge Dobbins MD Work Phone: [facility] [place] Comment on above: Refill Request Start: 04-06-2020 End: 04-06-2020 Subsequent hospital visit by physician Xr [facility] Work Phone: Radiology Comment on above: Foot injury, left, i nitial encounter [S99.922A] Start: 08-07-2018 End: 01-23-2019 Physical examination Miguelito Champion DO Work Phone: [facility] Start: 03-14-2018 End: 05-30-2019 Patient requested procedure Miguelito Champion DO Work Phone: [facility] Start: 12-24-2015 End: 03-28-2018 Patient encounter status Miguelito Champion DO Work Phone: [facility] Procedures Date Procedure Procedure Detail Performing Clinician Start: 10-15-2024 Antibody screen MIGUELITO CHAMPION Comment on above: Order Comment: Speci men Type: BLOOD SPECIMEN Ordering Facility: [facility] Address: [address] [place] [address] Performed By: #### 7 3752-8, 5195-3, 65821-5 #### [facility] CLIA [id number] [address] [place], [place] [address] [place] [address] [place] Start: 10-15-2024 Us preg uterus after 1st trimest / gestation Jossie Gonzales MD Work Phone: Start: 08-23-2024 Adult depression screening assessment Miguelito Champion DO Work Phone: Start: 08-22-2024 Us preg uterus after 1st trimest 1/ gestation Shiloh Westfall CANE LOADER.MOLD MAKING PLAST[employer] SHEETS SUPERVISOR Work Phone: Start: 07-25-2024 Us preg uterus after 1st trimest 1/ gestation Kristen Smith MD Work Phone: Start: 06-12-2024 Antibody screen MIGUELITO CHAMPION Comment on above: Order Comment: Speci men Type: BLOOD SPECIMEN Ordering Facility: [facility] Address: [address] [place] [address] Performed By: #### 7 [id number], 5195-3, 28105-3 #### [facility] CLIA [id number] [address] [place] [address] [place] Start: 05-23-2024 Us uterus limited 1/> fetuses Shiloh Westfall CANE LOADER.MOLD MAKING P[employer] SHEETS SUPERVISOR Work Phone: Start: 07-06-2021 Adult depression screening assessment Miguelito Champion DO Work Phone: Start: 04-06-2020 Radex foot complete minimum 3 views Filiberto Groves CANE LOADER.MOLD MAKING PLAST[employer] SHEETS SUPERVISOR Work Phone: Start: 08-07-2018 Adult depression screening assessment Jorge Dobbins MD Work Phone: Plan of Treatment Date Care Activity Detail Author Start: 05-23-2029 Screening for malign ant neoplasm of cervix Cervical Cancer Screening [facility] Start: 08-23-2025 Annual PCP Team Trim Mounter kelley Disease Visit Annual PCP Team Chronic Disease Visit [facility] Start: 08-23-2025 Anxiety Screening Anxiety Screening [facility] Start: 08-23-2025 Depression Screening Depression Scre ening [facility] Start: 01-07-2025 ambulatory Ambulatory Facility:[facility] Start: 11-23-2024 End: 02-22-2025 Thyrotropin [Units/volume] in Serum or Plasma THYROID STIMULATING HORMONE Lab Routine Acquired hypothyroidism Expected: 11/23/2024, Expires: 02/22/2025 [facility] Work Phone: Comment on above: Expected: 11/23/2024 , Expires: 02/22/2025 Start: 11-23-2024 End: 02-22-2025 Thyroxine (T4) free [Mass/volume] in Serum or Plasma T4 FREE/FREE THYROXINE Lab Routine Acquired hypothyroidism Expected: 11/23/2024, Expires: 02/22/2025 [facility] Comment on above: Expected: 11/23/2024 , Expires: 02/22/2025 Start: 11-12-2024 End: 11-12-2024 Patient encounter procedure [facility] Comment on above: Growth Growth /OB Start: 11-12-2024 RSV Vaccine (1 - Ris k 1-dose series) RSV Vaccine (1 - Risk 1-dose series) [facility] Start: 10-29-2024 End: 10-29-2024 Patient encounter procedure 10/29/2024 10:40 AM EDT Routine Office Visit OB/Gynecology [address] [place], [place] [id number] Kristen Smith MD [address] [place], [place] [address] OB OB/Gynecology Comment on above: OB Start: 10-15-2024 End: 10-15-2024 ambulatory 10/15/2024 3:00 PM EDT Results Only [facility] [place] [address] [place] [id number] glucose lab-Requesting the dye free lemon [place] flavor [facility] Comment on above: glucose lab-Requesti ng the dye free lemon [place] flavor Start: 10-15-2024 End: 10-15-2024 Patient encounter procedure [facility]aternal [facility] Comment on above: Growth Growth/glucose/OB Start: 10-15-2024 End: 01-14-2025 Thyrotropin [Units/volume] in Serum or Plasma [facility] Work Phone: Comment on above: Expected: 10/15/2024 , Expires: 01/14/2025 Start: 10-15-2024 End: 01-14-2025 Thyroxine (T4) free [Mass/volume] in Serum or Plasma [facility] Comment on above: Expected: 10/15/2024 , Expires: 01/14/2025 Start: 10-13-2024 Influenza vaccination C [facility] Start: 09-23-2024 End: 12-23-2024 Thyrotropin [Units/volume] in Serum or Plasma THYROID STIMULATING HORMONE Lab Routine Acquired hypothyroidism Expected: 09/23/2024, Expires: 12/23/2024 [facility] Work Phone: Comment on above: Expected: 09/23/2024 , Expires: 12/23/2024 Start: 09-23-2024 End: 12-23-2024 Thyroxine (T4) free [Mass/volume] in Serum or Plasma T4 FREE/FREE THYROXINE Lab Routine Acquired hypothyroidism Expected: 09/23/2024, Expires: 12/23/2024 [facility] Comment on above: Expected: 09/23/2024 , Expires: 12/23/2024 Start: 09-18-2024 End: 09-18-2024 Patient encounter procedure 09/18/2024 2:40 PM EDT Routine Office Visit OB/Gynecology [address] [place] [address] Kristen Smith MD [address] [place] [address] OB OB/Gynecology Comment on above: OB Start: 08-23-2024 End: 08-23-2024 Patient encounter procedure 08/23/2024 9:00 AM EDT Office Visit [facility] [address] [place] [address] Miguelito Champion, DO [address] [place] [address] Physical [facility] Comment on above: Physical Start: 08-22-2024 End: 08-22-2024 Patient encounter procedure OB/Gynecology Comment on above: Twins/Anatomy/OB Anatomy/OB Start: 08-22-2024 End: 08-22-2024 Patient encounter procedure Maternal Medicine Comment on above: Twins/Anatomy Anatomy Start: 07-25-2024 End: 07-25-2024 Patient encounter procedure Maternal Medicine Comment on above: Early Anatomy OB Start: 07-19-2024 Annual PCP Team Trim Mounter kelley Disease Visit Annual PCP Team Chronic Disease Visit [facility] Start: 07-08-2024 End: 07-08-2025 OBSTETRIC ULTRASOUND WHI OBSTETRIC ULTRASOUND [facility]I Anc Imaging Routine Twin with single intrauterine , first trimester, fetus 1 (HCC) 13 weeks gestation of (HCC) Obesity affecting in second trimester, unspecified obesity type (HCC) Expected: 07/08/2024, Expires: 07/08/2025 [facility] Work Phone: Comment on above: Expected: 07/08/2024 , Expires: 07/08/2025 Start: 07-04-2024 End: 07-04-2024 Patient encounter procedure Maternal Medicine Comment on above: Twin/Nuchal Twins/Nuchal/OB Start: 06-25-2024 End: 09-24-2024 Thyrotropin [Units/volume] in Serum or Plasma THYROID STIMULATING HORMONE Lab Routine Hypothyroidism, acquired Expected: 06/25/2024, Expires: 09/24/2024 [facility] Work Phone: Comment on above: Expected: 06/25/2024 , Expires: 09/24/2024 Start: 06-25-2024 End: 09-24-2024 Thyroxine (T4) free [Mass/volume] in Serum or Plasma T4 FREE/FREE THYROXINE Lab Routine Hypothyroidism, acquired Expected: 06/25/2024, Expires: 09/24/2024 [facility] Comment on above: Expected: 06/25/2024 , Expires: 09/24/2024 Start: 06-05-2024 End: 06-05-2024 Patient encounter procedure 06/05/2024 1:00 PM EDT Routine Office Visit OB/Gynecology [address] [place] [address] Remote, 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 [employer] [address] [place] [address] Twins /Dating OB/Gynecology Comment on above: Twins /Dating Start: 05-23-2024 End: 08-22-2024 ANEMIA REFLEX PANEL ANEMIA REFLEX PANEL Lab Routine with uncertain dates in first trimester (HCC) Expected: 05/23/2024, Expires: 08/22/2024 [facility] Work Phone: Comment on above: Expected: 05/23/2024 , Expires: 08/22/2024 Start: 05-23-2024 End: 08-22-2024 Chromosome 21 trisomy [Presence] in Blood or Tissue by Cytogenetics [id number] PLUS Lab Routine Twin gestation in first trimester, unspecified multiple gestation type (HCC) Expected: 05/23/2024, Expires: 08/22/2024 [facility] Comment on above: Expected: 05/23/2024 , Expires: 08/22/2024 Start: 05-23-2024 End: 08-22-2024 Hemoglobin A1c in Blood HEMOGLOBIN A1C Lab Routine with uncertain dates in first trimester (HCC) Expected: 05/23/2024, Expires: 08/22/2024 [facility] Comment on above: Expected: 05/23/2024 , Expires: 08/22/2024 Start: 05-23-2024 End: 08-22-2024 Hepatitis B virus surface Ag [Presence] in Serum HEPATITIS B SURFACE ANTIGEN Lab Routine with uncertain dates in first trimester (HCC) Expected: 05/23/2024, Expires: 08/22/2024 [facility] Comment on above: Expected: 05/23/2024 , Expires: 08/22/2024 Start: 05-23-2024 End: 08-22-2024 Hepatitis C virus Ab [Presence] in Serum HEPATITIS C ANTIBODY IA WITH CONFIRMATION Lab Routine with uncertain dates in first trimester (HCC) Expected: 05/23/2024, Expires: 08/22/2024 [facility] Comment on above: Expected: 05/23/2024 , Expires: 08/22/2024 Start: 05-23-2024 End: 08-22-2024 HIV 1+2 Ab [Presence] in Serum or Plasma by Immunoassay HIV 1/2 COMBO WITH REFLEX TO DIFFERENTIATION Lab Routine with uncertain dates in first trimester (HCC) Expected: 05/23/2024, Expires: 08/22/2024 [facility] Comment on above: Expected: 05/23/2024 , Expires: 08/22/2024 Start: 05-23-2024 End: 05-23-2025 OBSTETRIC ULTRASOUND [facility] Comment on above: Expected: 05/23/2024 , Expires: 05/23/2025 Start: 05-23-2024 End: 08-22-2024 RUBELLA IGG ANTIBODY RUBELLA IGG ANTIBODY Lab Routine with uncertain dates in first trimester (HCC) Expected: 05/23/2024, Expires: 08/22/2024 [facility] Comment on above: Expected: 05/23/2024 , Expires: 08/22/2024 Start: 05-23-2024 End: 08-22-2024 SYPHILIS TREPONEMAL W/REFLEX SYPHILIS TREPONEMAL W/REFLEX Lab Routine with uncertain dates in first trimester (HCC) Expected: 05/23/2024, Expires: 08/22/2024 [facility] Comment on above: Expected: 05/23/2024 , Expires: 08/22/2024 Start: 05-23-2024 End: 08-22-2024 TYPE + SCREEN TYPE + SCREEN Blood Bank Routine with uncertain dates in first trimester (HCC) Expected: 05/23/2024, Expires: 08/22/2024 [facility] Comment on above: Expected: 05/23/2024 , Expires: 08/22/2024 Start: 05-23-2024 End: 05-23-2024 Patient encounter procedure 05/23/2024 8:15 AM EDT Initial Office Visit OB/Gynecology [address] [place] [place] [id number] Shiloh Westfall APRN.MOLD MAKING P[employer] SHEETS SUPERVISOR [address] [place] [address] New OB=LMP 2 OB/Gynecology Comment on above: New OB=LMP 2/ Start: 05-05-2024 End: 08-04-2024 Thyrotropin [Units/volume] in Serum or Plasma THYROID STIMULATING HORMONE Lab Routine Hypothyroidism, acquired Expected: 05/05/2024, Expires: 08/04/2024 [facility] Work Phone: Comment on above: Expected: 05/05/2024 , Expires: 08/04/2024 Start: 05-05-2024 End: 08-04-2024 Thyroxine (T4) free [Mass/volume] in Serum or Plasma T4 FREE/FREE THYROXINE Lab Routine Hypothyroidism, acquired Expected: 05/05/2024, Expires: 08/04/2024 [facility] Comment on above: Expected: 05/05/2024 , Expires: 08/04/2024 Start: 03-25-2024 Urine microalbumin profile [facility] Start: 03-17-2024 End: 06-16-2024 Thyrotropin [Units/volume] in Serum or Plasma THYROID STIMULATING HORMONE Lab Routine Acquired hypothyroidism Expected: 03/17/2024, Expires: 06/16/2024 [facility] Work Phone: Comment on above: Expected: 03/17/2024 , Expires: 06/16/2024 Start: 03-17-2024 End: 06-16-2024 Thyroxine (T4) free [Mass/volume] in Serum or Plasma T4 FREE/FREE THYROXINE Lab Routine Acquired hypothyroidism Expected: 03/17/2024, Expires: 06/16/2024 [facility] Comment on above: Expected: 03/17/2024 , Expires: 06/16/2024 Start: 03-17-2024 End: 06-16-2024 Triiodothyronine (T3) [Mass/volume] in Serum or Plasma T3 Lab Routine Acquired hypothyroidism Expected: 03/17/2024, Expires: 06/16/2024 [facility] Comment on above: Expected: 03/17/2024 , Expires: 06/16/2024 Start: 10-14-2023 Covid-19 Vaccine ( season) Covid-19 Vaccine () [facility] Start: 10-14-2023 Influenza vaccination [facility] Start: 10-08-2023 End: 01-07-2024 CBC panel - Blood by Automated count COMPLETE BLOOD COUNT Lab Routine Acquired hypothyroidism Leukocytosis, unspecified type Expected: 10/08/2023, Expires: 01/07/2024 [facility] Comment on above: Expected: 10/08/2023 , Expires: 01/07/2024 Start: 10-08-2023 End: 01-07-2024 Thyrotropin [Units/volume] in Serum or Plasma THYROID STIMULATING HORMONE Lab Routine Acquired hypothyroidism Expected: 10/08/2023, Expires: 01/07/2024 [facility] Work Phone: Comment on above: Expected: 10/08/2023 , Expires: 01/07/2024 Start: 10-08-2023 End: 01-07-2024 Thyroxine (T4) free [Mass/volume] in Serum or Plasma T4 FREE/FREE THYROXINE Lab Routine Acquired hypothyroidism Expected: 10/08/2023, Expires: 01/07/2024 [facility] Comment on above: Expected: 10/08/2023 , Expires: 01/07/2024 Start: 10-08-2023 End: 01-07-2024 Triiodothyronine (T3) Free [Mass/volume] in Serum or Plasma T3, FREE Lab Routine Acquired hypothyroidism Expected: 10/08/2023, Expires: 01/07/2024 [facility] Comment on above: Expected: 10/08/2023 , Expires: 01/07/2024 Start: 09-23-2023 ANNUAL PCP TEAM PIG IRON LOADER KELLEY DISEASE VISIT ANNUAL PCP TEAM CHRONIC DISEASE VISIT [facility] Start: 09-23-2023 COVID-19 VACCINE (#1) COVID-19 VACCI NE (#1) [facility] Comment on above: Postponed from 09/18 (Declined at this time) Start: 09-23-2023 HPV TESTING HPV TESTING [facility] Comment on above: Postponed from 03/21 (Declined at this time) Start: 09-23-2023 Screening for malign ant neoplasm of cervix HPV Testing [facility] Comment on above: Postponed from 03/21 (Declined at this time) Start: 03-26-2023 PAP TESTING PAP TESTING [facility] Start: 03-26-2023 Screening for malign ant neoplasm of cervix Pap Testing [facility] Start: 02-12-2023 Behavioral Health Screening Behavioral Health Screening [facility] Start: 02-12-2023 Depression Assessment Depression Ass essment [facility] Start: 10-26-2022 End: 12-26-2022 Thyrotropin [Units/volume] in Serum or Plasma TSH BLD Lab Routine Acquired hypothyroidism Expected: 10/26/2022, Expires: 12/26/2022 [facility] Work Phone: Comment on above: Expected: 10/26/2022 , Expires: 12/26/2022 Start: 10-26-2022 End: 12-26-2022 Thyroxine (T4) free [Mass/volume] in Serum or Plasma T4 FREE/FREE THYROX Lab Routine Acquired hypothyroidism Expected: 10/26/2022, Expires: 12/26/2022 [facility] Work Phone: Comment on above: Expected: 10/26/2022 , Expires: 12/26/2022 Start: 10-26-2022 End: 12-26-2022 Triiodothyronine (T3) [Mass/volume] in Serum or Plasma T3 BLD Lab Routine Acquired hypothyroidism Expected: 10/26/2022, Expires: 12/26/2022 [facility] Work Phone: Comment on above: Expected: 10/26/2022 , Expires: 12/26/2022 Start: 10-13-2022 Covid-19 Vaccine () Covid-19 Vaccine () [facility] Start: 10-13-2022 Influenza vaccination C [facility] Start: 09-11-2022 End: 11-11-2022 THYROID PEROXIDASE ANTIBODY BLOOD THYROID PEROXIDASE ANTIBODY BLOOD Lab Routine Acquired hypothyroidism Expected: 09/11/2022 (Approximate), Expires: 11/11/2022 [facility] Work Phone: Comment on above: Expected: 09/11/2022 (Approximate), Expires: 11/11/2022 Start: 09-11-2022 End: 11-11-2022 Thyrotropin [Units/volume] in Serum or Plasma TSH BLD Lab Routine Acquired hypothyroidism Expected: 09/11/2022 (Approximate), Expires: 11/11/2022 [facility] Work Phone: Comment on above: Expected: 09/11/2022 (Approximate), Expires: 11/11/2022 Start: 09-11-2022 End: 11-11-2022 Thyroxine (T4) free [Mass/volume] in Serum or Plasma T4 FREE/FREE THYROX Lab Routine Acquired hypothyroidism Expected: 09/11/2022 (Approximate), Expires: 11/11/2022 [facility] Work Phone: Comment on above: Expected: 09/11/2022 (Approximate), Expires: 11/11/2022 Start: 09-11-2022 End: 11-11-2022 Triiodothyronine (T3) Free [Mass/volume] in Serum or Plasma T3 FREE BLD Lab Routine Acquired hypothyroidism Expected: 09/11/2022 (Approximate), Expires: 11/11/2022 [facility] Work Phone: Comment on above: Expected: 09/11/2022 (Approximate), Expires: 11/11/2022 Start: 07-06-2022 Adult depression screening assessment DEPRESSION SCREENING [facility] Start: 07-06-2022 ANNUAL PCP TEAM PIG IRON LOADER KELLEY DISEASE VISIT ANNUAL PCP TEAM CHRONIC DISEASE VISIT [facility] Start: 07-06-2022 COVID-19 VACCINE (#1) COVID-19 VACCI NE (#1) [facility] Comment on above: Postponed from 03/21 (Declined at this time) Postponed from 09/18 (Declined at this time) Start: 02-12-2022 DEPRESSION ASSESSMENT DEPRESSION ASS ESSMENT [facility] Start: 10-13-2021 Influenza vaccination C [facility] Start: 07-06-2021 End: 09-05-2021 T3 FREE BLD [facility] Work Phone: Comment on above: Expected: 07/06/2021 , Expires: 09/05/2021 Start: 07-06-2021 End: 09-05-2021 T4 FREE/FREE THYROX [facility] Work Phone: Comment on above: Expected: 07/06/2021 , Expires: 09/05/2021 Start: 07-06-2021 End: 09-05-2021 THYROID PEROXIDASE ANTIBODY BLOOD [facility] Work Phone: Comment on above: Expected: 07/06/2021 , Expires: 09/05/2021 Start: 07-06-2021 End: 09-05-2021 Thyrotropin [Units/volume] in Serum or Plasma [facility] Work Phone: Comment on above: Expected: 07/06/2021 , Expires: 09/05/2021 Start: 05-02-2021 End: 07-02-2021 CBC panel - Blood by Automated count CBC Lab Routine Acquired hypothyroidism Expected: 05/02/2021, Expires: 07/02/2021 [facility] Work Phone: Comment on above: Expected: 05/02/2021 , Expires: 07/02/2021 Start: 05-02-2021 End: 07-02-2021 Comprehensive metabolic 2000 panel - Serum or Plasma COMP METABOLIC PANEL Lab Routine Acquired hypothyroidism Expected: 05/02/2021, Expires: 07/02/2021 [facility] Work Phone: Comment on above: Expected: 05/02/2021 , Expires: 07/02/2021 Start: 05-02-2021 End: 07-02-2021 Hemoglobin A1c/Hemoglobin.total in Blood HGB A1C Lab Routine Wellness examination Expected: 05/02/2021, Expires: 07/02/2021 [facility] Work Phone: Comment on above: Expected: 05/02/2021 , Expires: 07/02/2021 Start: 05-02-2021 End: 07-02-2021 LIPID PANEL BASIC LIPID PANEL BASIC Lab Routine Wellness examination Expected: 05/02/2021, Expires: 07/02/2021 [facility] Work Phone: Comment on above: Expected: 05/02/2021 , Expires: 07/02/2021 Start: 05-02-2021 End: 07-02-2021 T3 BLD T3 BLD Lab Routine Wellness examination Expected: 05/02/2021, Expires: 07/02/2021 [facility] Work Phone: Comment on above: Expected: 05/02/2021 , Expires: 07/02/2021 Start: 05-02-2021 End: 07-02-2021 T4 FREE/FREE THYROX T4 FREE/FREE THYROX Lab Routine Wellness examination Expected: 05/02/2021, Expires: 07/02/2021 [facility] Work Phone: Comment on above: Expected: 05/02/2021 , Expires: 07/02/2021 Start: 05-02-2021 End: 07-02-2021 Thyrotropin [Units/volume] in Serum or Plasma TSH BLD Lab Routine Wellness examination Expected: 05/02/2021, Expires: 07/02/2021 [facility] Work Phone: Comment on above: Expected: 05/02/2021 , Expires: 07/02/2021 Start: 05-02-2021 End: 07-02-2021 VITAMIN D 25 HYDROXY VITAMIN D 25 HYDROXY Lab Routine Wellness examination Expected: 05/02/2021, Expires: 07/02/2021 [facility] Work Phone: Comment on above: Expected: 05/02/2021 , Expires: 07/02/2021 Start: 03-26-2021 Screening for malign ant neoplasm of cervix Cervical Cancer Screening [facility] Start: 02-12-2021 DEPRESSION ASSESSMENT DEPRESSION ASS ESSMENT [facility] Start: 10-13-2020 Influenza vaccination INFLUENZA (#1) [facility] Start: 05-29-2020 ANNUAL PCP TEAM PIG IRON LOADER KELLEY DISEASE VISIT ANNUAL PCP TEAM CHRONIC DISEASE VISIT [facility] Start: 08-08-2019 Adult depression screening assessment DEPRESSION SCREENING [facility] Start: 2019 HPV TESTING HPV TESTING [facility] Start: 12-15-2011 HPV VACCINE (3 - 3-d ose series) HPV VACCINE (3 - 3-dose series) [facility] Start: 11-06-2011 HPV Vaccine (3 - 3-d ose series) HPV Vaccine (3 - 3-dose series) [facility] Start: 2007 Anxiety Screening Anxiety Screening [facility] Start: 2007 Depression Screening Depression Scre ening [facility] Start: 1994 COVID-19 VACCINE (1) COVID-19 VACCIN E (1) [facility] Start: 1989 COVID-19 VACCINE (#1) COVID-19 VACCI NE (#1) [facility] Bacteria identified in Urine by Culture BACTERIAL CULTURE, URINE Microbiology Routine with uncertain dates in first trimester ([facility]) 05/23/2024 9:08 AM EDT [facility] Chlamydia trachomatis+Neisseria gonorrhoeae DNA [Presence] in Unspecified specimen by SAMSON with probe detection GONORRHEA/CHLAMYDIA NAAT Lab Routine with uncertain dates in first trimester ([facility]) 05/23/2024 9:08 AM EDT [facility] End: 02-21-2025 OBSTETRIC ULTRASOUND WHI OBSTETRIC ULTRASOUND I Anc Imaging Routine High-risk , multigravida of advanced maternal age, antepartum (HCC) 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 ([facility]) Class 2 obesity without serious comorbidity with body mass index (BMI) of 37.0 to 37.9 in adult, unspecified obesity type Once per month for 5 Occurrences starting 08/25/2024 until 02/21/2025 [facility] Work Phone: Comment on above: Once per month for 5 Occurrences starting 08/25/2024 until 02/21/2025 PAP TEST PAP TEST Lab [facility] Screening for cervical cancer Special screening examination for human papillomavirus (HPV) 05/23/2024 9:08 AM EDT [facility] TRICHOMONAS VAGINALI S NAAT TRICHOMONAS VAGINALIS NAAT Lab Routine Screen for STD (sexually transmitted disease) 05/23/2024 9:08 AM EDT [facility] Immunizations Immunization Date Immunization Notes Care Provider Ivonne bhatt 10-15-2024 RHO(D) immune globul in- IV or IM Lauren Madera APRN.CNP Work Phone: [facility] 05-08-2019 RHO(D) immune globul in- IV or IM Jorge Dobbins MD Work Phone: [facility] 03-26-2018 RHO(D) immune globul in- IV or IM Jorge Dobbins MD Work Phone: [facility] Work Phone: 12-05-2017 influenza virus vaccine, unspecified formulation Jorge Dobbins MD Work Phone: [facility] 12-05-2017 influenza, seasonal, injectable Jorge Dobbins MD Work Phone: [facility] 11-17-2016 influenza virus vaccine, unspecified formulation Jorge Dobbins MD Work Phone: [facility] 11-24-2015 influenza virus vaccine, unspecified formulation Jorge Dobbins MD Work Phone: [facility] 11-27-2014 influenza virus vaccine, unspecified formulation Jorge Dobbins MD Work Phone: [facility] 04-02-2014 RHO(D) immune globul in- IV or IM Jorge Dobbins MD Work Phone: [facility] 03-25-2014 tetanus toxoid, redu gracie diphtheria toxoid, and acellular pertussis vaccine, adsorbed Jorge Dobbins MD Work Phone: [facility] 11-20-2013 influenza, seasonal, injectable Jorge Dobbins MD Work Phone: [facility] Work Phone: 11-20-2012 influenza virus vaccine, whole virus Jorge Dobbins MD Work Phone: [facility] 11-13-2011 influenza virus vaccine, live, attenuated, for intranasal use Jorge Dobbins MD Work Phone: [facility] 08-14-2011 human papilloma viru s vaccine, quadrivalent Jorge Dobbins MD Work Phone: [facility] Work Phone: 05-11-2011 varicella virus vaccine Will tommie Dobbins MD Work Phone: [facility] 12-14-2008 tuberculin skin test ; purified protein derivative solution, intradermal Miguelito Champion DO Work Phone: [facility] 12-01-2008 influenza virus vaccine, unspecified formulation Jorge Dobbins MD Work Phone: [facility] Work Phone: 07-15-2008 tetanus toxoid, redu gracie diphtheria toxoid, and acellular pertussis vaccine, adsorbed Jorge Dobbins MD Work Phone: [facility] 07-07-2008 hepatitis B vaccine, adult dosage Jorge Dobbins MD Work Phone: [facility] Work Phone: 07-07-2008 human papilloma viru s vaccine, quadrivalent Jorge Dobbins MD Work Phone: [facility] Work Phone: 05-10-2008 hepatitis B vaccine, adult dosage Jorge Dobbins MD Work Phone: [facility] Work Phone: 01-27-2008 tuberculin skin test ; purified protein derivative solution, intradermal Miguelito Champion DO Work Phone: [facility] 01-20-2008 tuberculin skin test ; purified protein derivative solution, intradermal Miguelito Champion DO Work Phone: [facility] Payers Date Payer Category Payer Self-pay 2023 Private Health Insurance [id number] 2023 Private Health Insurance [id number] 2021 Unknown [employer] PPO [id number] 2021-Present [phone] [address] [place] [address] PPO [id number] 2018 Unknown [employer] PPO OOS [id number] 2018-Present [phone] [address] [place] [address] PPO [id number] 2018 Unknown [id number] Unknown [id number] Unknown [id number] Social History Date Type Detail Facility Start: 08-14-2011 End: 06-13-2022 Tobacco smoking status MTIS Never smoked tobacco [facility] Start: 04-06-2020 End: 10-29-2024 Alcohol intake Current non-drinker of alcohol (finding) [facility] Start: 05-28-2019 History SDOH Alcohol Frequency 1 [facility] Start: 05-28-2019 History SDOH Alcohol Std Drinks 98 [facility] Start: 10-14-2013 History SDOH Alcohol Comment very rarely, maybe 2x yearly- not when [facility] Start: 05-28-2019 History SDOH Social Connections Phone 5 [facility] Start: 05-28-2019 History SDOH Social Connections Get Together 2 [facility] Start: 05-28-2019 History SDOH Social Connections Confucianism 3 [facility] Start: 05-28-2019 History SDOH Physical Activity DPW 0 [facility] Start: 05-28-2019 Education 15 [facility] Start: 1990 Sex Assigned At Female [facility] Start: 03-07-2020 End: 07-06-2021 Exposure to SARS-CoV-2 (event) Not sure [facility] Work Phone: Start: 08-14-2011 End: 06-13-2022 Tobacco use and exposure Smokeless tobacco non-user [facility] Work Phone: Start: 05-28-2019 End: 09-21-2022 History of Social function [facility] Start: 05-28-2019 End: 09-21-2022 Social connection and isolation panel [facility] Do you belong to any clubs or organizations such as spiritism groups, unions, fraternal or athletic groups, or school groups? Yes [facility] Are you now , , , , never or living with a partner? [facility] How often to you hav e a drink containing alcohol? Never [facility] Start: 01-14-2012 How many standard drinks containing alcohol do you have on a typical day? Patient refused [facility] Do you feel stress - tense, restless, nervous, or anxious, or unable to sleep at night because your mind is troubled all the time - these days [OSQ] Only a little [facility] (I/We) worried wheth er (my/our) food would run out before (I/we) got money to buy more. Never true [facility] Start: 04-22-2018 Gender identity Identifies as female gender (finding) [facility] Start: 04-22-2018 Sexual orientation Heterosexual (finding) [facility] How hard is it for y ou to pay for the very basics like food, housing, medical care, and heating Not very hard [facility] In the past 12 month s, was there a time when you were not able to pay the mortgage or rent on time? No [facility] Start: 04-16-2024 [facility] Do you feel stress - tense, restless, nervous, or anxious, or unable to sleep at night because your mind is troubled all the time - these days [OSQ] Not at all [facility] Goals Date Patient Goal Desired Activity /State Personal health goal Functional Status Date Assessment Result Facility 08-17-2024 Total score [AUDIT-C] 0 08/18/19 25 9:57 AM EDT Shanel Ordoñez [facility] 08-17-2024 How often to you hav e a drink containing alcohol? Never 08/17/2024 9:57 AM EDT Shanel Ordoñez Never [facility] 08-17-2024 Functional status Patient does n ot drink 08/17/2024 9:57 AM EDT Shanel Ordoñez Patient does not drink [facility] 08-17-2024 How often do you hav e 6 or more drinks on 1 occasion? Never 08/17/2024 9:57 AM EDT Shanel Ordoñez Never [facility] 08-21-2014 Are you deaf, or do you have serious difficulty hearing No 08/21/2014 8:49 AM EDT Juliana Huston RN No [facility] 08-21-2014 Are you blind, or do you have serious difficulty seeing, even when wearing glasses No 08/21/2014 8:49 AM Juliana Castro, GILMAR No [facility] 08-21-2014 Do you have serious difficulty walking or climbing stairs No 08/21/2014 8:49 AM Juliana Castro, GILMAR No [facility] 08-21-2014 Do you have difficul ty dressing or bathing No 08/21/2014 8:49 AM JOHANNYT Juliana Huston, GILMAR No [facility] 08-21-2014 Because of a physica l, mental, or emotional condition, do you have difficulty doing errands alone such as visiting a physician's office or shopping No 08/21/2014 8:49 AM JOHANNYT Juliana Huston, GILMAR No [facility] Mental Status Date Assessment Result Facility 08-21-2014 Because of a physica l, mental, or emotional condition, do you have serious difficulty concentrating, remembering, or making decisions No 08/21/2014 8:49 AM Juliana Castro RN No [facility] Clinical Notes 12-19-2018 to 12-25-2024 Telephone Encounter - Juliana Huston RN - 10/29/2024 12:33 PM EDTTelephone Encounter - Juliana Huston RN - 10/29/2024 12:33 PM EDTPatient Kristen Jerez RN - 10/15/2024 4:29 PM EDT Note Date & Type Note Facility 12-25-2024 Note HNO ID: [id number] Author: JOE BOYCE MD Service: ? Author Type: Physician Type: Progress Notes Filed: 12/25/2024 13:09 Note Text: NST SUMMARY PROVIDER ASSESSMENT AND INTERPRETATION Nena Leiva is a 34 year old female, , who is at 38w1d with an VENICE of 01/07/2025, by Last Menstrual Period dating method. Indications for NST: Obesity Baseline: 140 Variability: Moderate Accelerations: Present 15 X 15 Decelerations: None Contractions: TOCO: Irregular Interpretation: Reactive SIGNATURE: Joe Boyce DO [facility] 12-24-2024 Note HNO ID: [id number] Author: GERA SINGH, Semaj Service: ? Author Type: Patient Meat Hanger Type: Progress Notes Filed: 12/24/2024 07:11 Note Text: POPULATION HEALTH NAVIGATION OUTREACH Action/FYI Added selling manager to the chart through a note. No direct outreach was made. Reason for Outreach Medicaid OB/Peds Care Gaps due: N/A Patient Contacted: Unable or unnecessary to reach patient: selling manager added Navigation Signature: Gera Singh Population Health Navigator December 24, 2024 7:10 AM [facility] 12-24-2024 Note Patient Outreach (NE TNAV) NENA LEIVA ([id number]) 1990 F Date Time Provider Department 12/24/24 GERA SINGH During your visit today, we recorded the following information about you: Gera Singh 12/24/2024 7:11 AM Signed POPULATION HEALTH NAVIGATION OUTREACH Action/FYI Added selling manager to the chart through a note. No direct outreach was made. Reason for Outreach Medicaid OB/Peds Care Gaps due: N/A Patient Contacted: Unable or unnecessary to reach patient: [place] selling manager added Navigation Signature: Gera Singh Population Health Navigator December 24, 2024 7:10 AM Allergies As of Date: 12/24/2024 Noted Allergy Reaction BEES 07/07/2008 7 - Swelling LATEX 07/07/2008 4 - Hives Date Reviewed: 12/18/2024 Reviewed by: Kristen Smith MD - Fully Assessed Reason for Visit: Population Health Navigation Outreach [3910] Cmt: to PCP/OB Prescriptions as of 12/24/2024 - thyroid (DATA OFFICER THYROID) 120 mg tablet Take 1 tablet [...] 500 mg by mouth once daily. - L.acid,para-B.bifidum-S.therm (QUAD-PROBIOTIC) 8 billion cell cap Take by mouth once daily. Problem List As Of Date 12/24/2024 Noted Resolved Hypothyroidism complicating [O99.280,*10/14/2013 Normal , [...] Wellness examination [Z00.00] 08/23/2024 Encounter Status:Closed by GERA SINGH on 12/24/24 [facility] 12-18-2024 Note HNO ID: [id number] Author: KRISTEN SMITH MD Service: ? Author Type: Physician Type: Progress Notes Filed: 12/18/2024 12:18 Note Text: NST SUMMARY PROVIDER ASSESSMENT AND INTERPRETATION Indications for NST: AMA and Obesity Baseline: 145 Variability: Moderate Accelerations: Present 15 X 15 Decelerations: None Interpretation: Reactive SIGNATURE: Kristen Smith MD [facility] 10-29-2024 Telephone encounter Note Order signed and faxed. Juliana Huston RN [facility] 10-29-2024 Miscellaneous Notes Order signed and faxed. Juliana Huston RN Received breast pump RX from [employer]. To DM to sign. Kristen Chang RN documented in this encounter [facility] 10-29-2024 Miscellaneous Notes S: Nena Leiva [...] visit ASSESSMENT/PLAN: 1. 30 weeks gestation of ([facility]) - ICD9: V22.2, ICD10: Z3A.30 (primary diagnosis) 2. Supervision of high risk in second trimester ([facility]) - ICD9: V23.9, ICD10: O09.92 3. Twin with single intrauterine , first trimester, fetus 1 ([facility]) - ICD9: 651.33, ICD10: O31.21X1 4. AMA (advanced maternal age) multigravida 35+, second trimester ([facility]) - ICD9: 659.63, ICD10: O09.522 5. Obesity affecting in second trimester, unspecified obesity type ([facility]) - ICD9: 649.13, ICD10: O99.212 BMI 35 Weekly NSTs at 36 Growth q 4 Kristen Smith MD documented in this encounter [facility] 10-29-2024 Progress note Formatting of t [...] visit ASSESSMENT/PLAN: 1. 30 weeks gestation of ([facility]) - ICD9: V22.2, ICD10: Z3A.30 (primary diagnosis) 2. Supervision of high risk in second trimester ([facility]) - ICD9: V23.9, ICD10: O09.92 3. Twin with single intrauterine , first trimester, fetus 1 ([facility]) - ICD9: 651.33, ICD10: O31.21X1 4. AMA (advanced maternal age) multigravida 35+, second trimester ([facility]) - ICD9: 659.63, ICD10: O09.522 5. Obesity affecting in second trimester, unspecified obesity type (HCC) - ICD9: 649.13, ICD10: O99.212 BMI 35 Weekly NSTs at 36 Growth q 4 Kristen Smith MD [facility] 10-29-2024 Instructions Tasha Carias MA - 10/29/2024 10:57 AM EDT SEQUENTIAL SCREENINGS The [facility] offers sequential screenings for women who [...] It will require an appointment with our medtronics technician. This is not an ultrasound performed by [...] the above symptoms, contact our office at [phone] and ask to speak with a nurse. After hours, you can call doctors registry at [phone] OR call [facility] at [phone] and ask to have the doctor nutrition professor paged. If you consider this an emergency, dial 10-13-4 or go to your nearest emergency department. NEED HELP? Are you dealing with a violent or abusive relationship? Are you a victim of rape or sexual assult? Call [facility] ([place]) 24 hour Crisis Hotline: 573.338.1969 or 098-212-2972. MANUAL Your Guide to a Healthy manual is now on-line. Visit [email or web address] ncyGuide to download your free copy documented in this encounter [facility] 10-29-2024 Telephone encounter Note Received breast pump RX from [employer]. To DM to sign. Kristen Chang, RN [facility] 10-27-2024 Telephone encounter Note See telephone note [facility] Work Phone: 10-27-2024 Miscellaneous Notes See telephone note documented in this encounter [facility] 10-24-2024 Telephone encounter Note Pt. informed via my chart. [facility] Work Phone: 10-24-2024 Miscellaneous Notes Pt. informed via my chart. Please have her increase her dose to 2 tablets 5 days a week and 1 tablet 2 days a week for her DATA OFFICER thyroid 120 mg Recheck labs 1 month Miguelito Champion DO Please see pt message -- I had labs drawn last week for OBGYN but I think my thyroid labs went to them for review. I just wanted to make sure you had a chance to review them and orders were in for the next time you want me to draw again. Thanks! Nena documented in this encounter [facility] 10-24-2024 Telephone encounter Note Please have her increase her dose to 2 tablets 5 days a week and 1 tablet 2 days a week for her DATA OFFICER thyroid 120 mg Recheck labs 1 month Miguelito Champion DO [facility] 10-24-2024 Telephone encounter Note Please see pt message -- I had labs drawn last week for OBGYN but I think my thyroid labs went to them for review. I just wanted to make sure you had a chance to review them and orders were in for the next time you want me to draw again. Thanks! Nena [facility] 10-24-2024 Telephone encounter Note TURNED INTOTE Crystal Giraldo MA [facility] 10-24-2024 Miscellaneous Notes TURNED INTOTE Crystal Giraldo MA documented in this encounter [facility] 10-16-2024 Note Indication Evaluation of growth [...] 4 oz EFW by: [place] ([facility]-AC-FL) Extended Ambulance Driver Paramedic 3.8 mm Extremities / Bony Struc [place] [...] M.D. [facility] 10-15-2024 Note HNO ID: [id number] Author: KRISTEN CHANG RN Service: ? Author [...] her Rhophylac pocket card. Kristen Chang RN [facility] 10-15-2024 History of Present illness Narrative Nena [...] was given her Rhophylac pocket card. Kristen Chang, RN documented in this encounter [facility] 10-15-2024 Progress note Formatting of t [...] Supervision of high risk in second trimester ([facility]) - ICD9: V23.9, ICD10: O09.92 (primary diagnosis) - Continue PNV and LDA 2. 28 weeks gestation of ([facility]) - ICD9: V22.2, ICD10: Z3A.28 - Growth today, report pending - 1 hour GCT, CBC, and RPR today - Rh negative: Rhogam injection today - Declines TDAP - LARC form reviewed and signed. Declines. - Depression screen negative - plan form discussed and given to Nena - Reviewed how to pre register through [facility] 3. Twin with single intrauterine , first trimester, fetus 1 ([facility]) - ICD9: 651.33, ICD10: O31.21X1 4. AMA (advanced maternal age) multigravida 35+, second trimester ([facility]) - ICD9: 659.63, ICD10: O09.522 - Age 34 at VENICE 5. Obesity affecting in second trimester, unspecified obesity type ([facility]) - ICD9: 649.13, ICD10: O99.212 -Pre BMI 35 - Plan for 32 week growth q 4 weeks. - Weekly NSTs at 36 weeks. Hypothyroidism affecting in second trimester ([facility]) - ICD9: 648.13, 244.9, ICD10: O99.282, E03.9 - Managed by PCP - Continue 120 mg of DATA OFFICER Thryoid - Recheck today Rh negative state in antepartum period ([facility]) - ICD9: 646.83, ICD10: O26.899, Z67.91 - Rhogam today PTL precautions and kick counts reviewed. RTO in 2 weeks or sooner as needed. Lauren Madera APRN.MOLD MAKING PLASTICS SHEETS SUPERVISOR [facility] 10-15-2024 Miscellaneous Notes .EH - S: [...] Supervision of high risk in second trimester ([facility]) - ICD9: V23.9, ICD10: O09.92 (primary diagnosis) - Continue PNV and LDA 2. 28 weeks gestation of ([facility]) - ICD9: V22.2, ICD10: Z3A.28 - Growth today, report pending - 1 hour GCT, CBC, and RPR today - Rh negative: Rhogam injection today - Declines TDAP - LARC form reviewed and signed. Declines. - Depression screen negative - plan form discussed and given to Nena - Reviewed how to pre register through [facility] 3. Twin with single intrauterine , first trimester, fetus 1 ([facility]) - ICD9: 651.33, ICD10: O31.21X1 4. AMA (advanced maternal age) multigravida 35+, second trimester ([facility]) - ICD9: 659.63, ICD10: O09.522 - Age 34 at VENICE 5. Obesity affecting in second trimester, unspecified obesity type ([facility]) - ICD9: 649.13, ICD10: O99.212 -Pre BMI 35 - Plan for 32 week growth q 4 weeks. - Weekly NSTs at 36 weeks. Hypothyroidism affecting in second trimester ([facility]) - ICD9: 648.13, 244.9, ICD10: O99.282, E03.9 - Managed by PCP - Continue 120 mg of DATA OFFICER Thryoid - Recheck today Rh negative state in antepartum period ([facility]) - ICD9: 646.83, ICD10: O26.899, Z67.91 - Rhogam today PTL precautions and kick counts reviewed. RTO in 2 weeks or sooner as needed. Lauren Madera APRN.MOLD MAKING PLASTICS SHEETS SUPERVISOR documented in this encounter [facility] 10-15-2024 Instructions Antelmo Sumner MA - 10/15/2024 2:27 PM EDT SEQUENTIAL SCREENINGS The [facility] offers sequential screenings for women who [...] It will require an appointment with our medtronics technician. This is not an ultrasound performed by [...] the above symptoms, contact our office at [phone] and ask to speak with a nurse. After hours, you can call doctors registry at [phone] OR call [facility] at [phone] and ask to have the doctor nutrition professor paged. If you consider this an emergency, dial 9-1-1 or go to your nearest emergency department. NEED HELP? Are you dealing with a violent or abusive relationship? Are you a victim of rape or sexual assult? Call [facility] ([place]) 24 hour Crisis Hotline: 408.153.9899 or 371-071-3206. MANUAL Your Guide to a Healthy manual is now on-line. Visit [email or web address] ncyGuide to download your free copy documented in this encounter [facility] 10-14-2024 Telephone encounter Note Patient has been identified by name and date of : Patient phones for refill(s): Requested Prescriptions Pending Prescriptions Disp Refills thyroid (DATA OFFICER THYROID) 120 mg tablet Sig: Take 1 tablet PO 3 days a week and 2 tablets PO 4 days a week Date of last office visit in primary care: 08/23/2024 Date of next office visit in primary care: Visit date not found Please advise. Thank you. Lisa León LPN. [facility] [facility] Work Phone: 10-14-2024 Miscellaneous Notes Patient has been identified by name and date of : Patient phones for refill(s): Requested Prescriptions Pending Prescriptions Disp Refills thyroid (DATA OFFICER THYROID) 120 mg tablet Sig: Take 1 tablet PO 3 days a week and 2 tablets PO 4 days a week Date of last office visit in primary care: 08/23/2024 Date of next office visit in primary care: Visit date not found Please advise. Thank you. Lisa León LPN. documented in this encounter [facility] 08-25-2024 Progress note Formatting of t his note might be different from the original. SW- pt doing well. No pain, vb, lof PE: Gen- NAD, well appearing See flowsheet A/p 20 wk gestation - Anatomy US today and final report pending - Thyroid labs today - Cont LDA - RTO 4 wks Joe Boyce DO [facility] 08-25-2024 Miscellaneous Notes SW- pt doing well. No pain, vb, lof PE: Gen- NAD, well appearing See flowsheet A/p 20 wk gestation - Anatomy US today and final report pending - Thyroid labs today - Cont LDA - RTO 4 wks Joe Boyce DO documented in this encounter [facility] 08-23-2024 Note HNO ID: [id number] Author: MIGUELITO CHAMPION, Service: ? Author Type: Physician Type: Progress Notes Filed: 08/23/2024 10:40 Note Text: CC: Nena Leiva is a 34 year old female who presents to the office for physical HPI: Overall she is doing well She is with a baby girl and due in 20 weeks, she is 20 weeks 3 days and managed by OBGYN in [place]. She has had 3 other successful vaginal births-1 davies, 1 set of twins. She is taking her vitamins at this time. Hypothyroidism, she is taking 120 mg of DATA OFFICER thyroid 4 days a week and 240 [...] Lopez, et al. 2017 Guidelines of the [place] Thyroid Association for the Diagnosis and Management [...] daily. cetirizine (ZYRTEC) 10 mg tablet thyroid (DATA OFFICER THYROID) 120 mg tablet Take 1 tablet [...] lb 3.2 oz) Height: 166 cm (5' 5.35) Gen: AANDO, NAD, non-toxic appearing, Pleasant, cooperative [...] - Instructed patien (more content not included)... [facility] 08-23-2024 History of Present illness Narrative CC: Nena Leiva is a 34 year old female who presents to the office for physical HPI: Overall she is doing well She is with a baby girl and due in 20 weeks, she is 20 weeks 3 days and managed by OBGYN in [place]. She has had 3 other successful vaginal births-1 davies, 1 set of twins. She is taking her vitamins at this time. Hypothyroidism, she is taking 120 mg of DATA OFFICER thyroid 4 days a week and 240 [...] Lopez et al. 2017 Guidelines of the [place] Thyroid Association for the Diagnosis and Management of Thyroid Disease during and the . Thyroid, 2017:27:3:315-389. 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 Rh negative state in antepartum period ([facility]) 11/07/2013 Vitamin D deficiency PAST SURGICAL [...] daily. cetirizine (ZYRTEC) 10 mg tablet thyroid (DATA OFFICER THYROID) 120 mg tablet Take 1 tablet [...] lb 3.2 oz) Height: 166 cm (5' 5.35) Gen: A&O, NAD, non-toxic appearing, Pleasant, cooperative [...] in the morning or at bedtime. Increase DATA OFFICER thyroid to 240 mg 4 days a [...] agreed with the plan. Miguelito Champion DO [address] [place] [address] documented in this encounter [facility] 08-22-2024 Instructions Tasha Carias MA - 08/22/2024 3:45 PM EDT SEQUENTIAL SCREENINGS The [facility] offers sequential screenings for women who [...] It will require an appointment with our medtronics technician. This is not an ultrasound performed by [...] the above symptoms, contact our office at [phone] and ask to speak with a nurse. After hours, you can call doctors registry at [phone] OR call [facility] at [phone] and ask to have the doctor nutrition professor paged. If you consider this an emergency, dial or go to your nearest emergency department. NEED HELP? Are you dealing with a violent or abusive relationship? Are you a victim of rape or sexual assult? Call [facility] ([place]) 24 hour Crisis Hotline: 974.299.1763 or 809-194-2259. MANUAL Your Guide to a Healthy manual is now on-line. Visit [email or web address] ncyGuide to download your free copy documented in this encounter [facility] 07-25-2024 Progress note Formatting of t [...] RTO in 4 weeks Denae Renteria APRN.CNM [facility] Work Phone: 07-25-2024 Miscellaneous Notes TINO-S: [...] Denae Renteria APRN.CNM documented in this encounter [facility] 07-25-2024 Instructions Mi Bauer MA - 07/25/2024 11:26 AM EDT SEQUENTIAL SCREENINGS The [facility] offers sequential screenings for women who [...] It will require an appointment with our medtronics technician. This is not an ultrasound performed by [...] the above symptoms, contact our office at [phone] and ask to speak with a nurse. After hours, you can call doctors registry at [phone] OR call [facility] at [phone] and ask to have the doctor nutrition professor paged. If you consider this an emergency, dial 9-4 or go to your nearest emergency department. NEED HELP? Are you dealing with a violent or abusive relationship? Are you a victim of rape or sexual assult? Call [facility] ([place]) 24 hour Crisis Hotline: 683.916.2868 or 652-056-1814. MANUAL Your Guide to a Healthy manual is now on-line. Visit [email or web address] ncyGuide to download your free copy documented in this encounter [facility] 07-15-2024 Telephone encounter Note Pt. informed via My chart. [facility] Work Phone: 07-15-2024 Miscellaneous Notes Pt. informed via My chart. Please make sure she knows that her thyroid labs are slightly undercorrected. Recommend increasing DATA OFFICER thyroid 120 mg to 2 tablets 3 days a week and 1 tablet 4 days a week, recheck labs in 1 month Miguelito Champion DO documented in this encounter [facility] 07-15-2024 Telephone encounter Note Please make sure she knows that her thyroid labs are slightly undercorrected. Recommend increasing DATA OFFICER thyroid 120 mg to 2 tablets 3 days a week and 1 tablet 4 days a week, recheck labs in 1 month Miguelito Champion DO [facility] 07-09-2024 Telephone encounter Note You can add her on that is fine. Thanks, Denae Renteria APRN.CNM [facility] Work Phone: 07-09-2024 Miscellaneous Notes You can add her on that is fine. Thanks, Denae Renteria APRN.CNM 14w0d Patient has her 16 week anatomy on 07/25 at 11:00 AM. Would like to have a visit afterwards. Would you OK with seeing her afterwards with your schedule? You are nutrition professor. If not, I can offer her 8:00 AM. I know she has issues with attendant child activity. Kristen Chang RN documented in this encounter [facility] 07-09-2024 Telephone encounter Note 14w0d Patient has her 16 week anatomy on 07/25 at 11:00 AM. Would like to have a visit afterwards. Would you OK with seeing her afterwards with your schedule? You are nutrition professor. If not, I can offer her 8:00 AM. I know she has issues with attendant child activity. Kristen Chang, GILMAR [facility] 07-08-2024 Telephone encounter Note Early anatomy ultrasound scheduled. Spokeable message sent to patient. Juliana Huston RN [facility] 07-08-2024 Miscellaneous Notes Early anatomy ultrasound scheduled. Spokeable message sent to patient. Juliana Huston RN 13w2d Patient needs 16 week anatomy. Placed 6 @ 11 AM on hold. Will need to attach order and officially schedule once order is placed after today's visit with SW. Kritsen Chang RN documented in this encounter [facility] 07-04-2024 Telephone encounter Note 13w2d Patient needs 16 week anatomy. Placed 6/ @ 11 AM on hold. Will need to attach order and officially schedule once order is placed after today's visit with SW. Kristen Chang RN [facility] 06-05-2024 Note HNO ID: [id number] Author: WILLIE ECHEVERRIA MD Service: ? Author Type: Physician Type: Progress Notes Filed: 06/05/2024 16:08 Note Text: June 05, 2024 3:23 PM Left message voice mail I was trying to reach her regarding her ultrasound remote read of today. Willie Echeverria MD [facility] 06-05-2024 Note HNO ID: [id number] Author: WILLIE ECHEVERRIA MD Service: ? Author Type: Physician Type: Progress Notes Filed: 06/05/2024 16:08 Note Text: The patient presents for requested ultrasound. Full report available in the Imaging tab in Epic. Willie Echeverria MD [facility] 05-26-2024 Telephone encounter Note Pt sends mychart below: Jorge Luis Champion, [...] [facility]. Thank you so much for everything! [facility] 05-26-2024 Miscellaneous Notes Pt sends mychart [...] much for everything! documented in this encounter [facility] 05-26-2024 Telephone encounter Note See TE May 26, 2024 [facility] 05-26-2024 Miscellaneous Notes See TE May 26, 2024 documented in this encounter [facility] 05-26-2024 Telephone encounter Note Pt notified of results via [employer] Glo Smith Ma [facility] 05-26-2024 Miscellaneous Notes Pt notified of results via [employer] Glo Smith Ma Please give her my congratulations on her ! Please have her increase dose of her thyroid medication as below and recheck labs in 4 weeks after this change Miguelito Champion, DO The following approved medication requests have been transmitted electronically. Requested Prescriptions Signed Prescriptions Disp Refills thyroid (DATA OFFICER THYROID) 120 mg tablet 140 tablet 3 Sig: Take 1 tablet PO 5 days a week and 2 tablets PO 2 days a week Authorizing Provider: MIGUELITO CHAMPION DO Hi Dr Champion, Just letting you know [...] your help! Nena documented in this encounter [facility] 05-26-2024 Telephone encounter Note Please give her my congratulations on her ! Please have her increase dose of her thyroid medication as below and recheck labs in 4 weeks after this change Miguelito Champion DO The following approved medication requests have been transmitted electronically. Requested Prescriptions Signed Prescriptions Disp Refills thyroid (DATA OFFICER THYROID) 120 mg tablet 140 tablet 3 Sig: Take 1 tablet PO 5 days a week and 2 tablets PO 2 days a week Authorizing Provider: MIGUELITO CHAMPION DO [facility] 05-24-2024 Telephone encounter Note Hi Dr [...] were high. Thanks for all your help! Ali [facility] 05-23-2024 Note HNO ID: [id number] Author: ANTELMO SUMNER MA Service: ? Author Type: Corporate Logistics Manager Type: Progress Notes Filed: 05/23/2024 11:52 Note Text: OB point of care ultrasound was performed. See imaging tab for details. Antelmo Sumner MA [facility] 05-23-2024 History of Present illness Narrative OB point of care ultrasound was performed. See imaging tab for details. Antelmo Sumner MA Patient declined site director. 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 DATA OFFICER THYROID 60 mg tablet TAKE 2 TABLETS [...] discussed with the Patient or Patient's Authorized Metalworking Specialist. As applicable, any other physician, advance practice provider, medical student, or other health professional student that will be observing or involved in the sensitive examination for educational or training purposes was discussed with the Patient or Authorized Metalworking Specialist. The Patient or Authorized Metalworking Specialist has agreed to proceed with the sensitive [...] A (7w2d) Twin B (6w2d) Shiloh Westfall APRN.CNP ASSESSMENT: 34 year old at 7w2d wks gestational age PLAN: 1) Patient oriented to practice. Patient given new OB orientation folder. Discussed nutrition, folic acid supplementation, dietary guidelines, exercise, smoking, alcohol, caffeine, and drug use. Discussed gestational weight gain guidelines. Discussed routine OB labs including STD/HIV. Discussed how to access Your guide to a health and the Sales Store Checker. Reviewed midwifery and dub room engineer services that are available. 2) Screening: Hemoglobin [...] Shiloh Westfall APRN.CNP documented in this encounter [facility] 05-19-2024 Note HNO ID: [id number] Author: SHILOH WESTFALL APRN.MOLD MAKING PLASTICS SHEETS SUPERVISOR Service: ? Author Type: Nurse Practitioner Type: Progress Notes Filed: 05/23/2024 11:52 Note Text: Patient declined site director. 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 DATA OFFICER THYROID 60 mg tablet TAKE 2 TABLETS [...] for: Heartburn, Constipa (more content not included)... [facility] 05-19-2024 Instructions Almita Sawyer LPN - 05/19/2024 3:37 PM EDT Please select the following link to access the [facility] Your Guide to a Healthy . [email or web address] Please select the following link to access the [facility] Your Guide to a Healthy . [email or web address] documented in this encounter [facility] 05-05-2024 Telephone encounter Note Pt. informed via My Chart. [facility] Work Phone: 05-05-2024 Miscellaneous Notes Pt. informed via My Chart. Order placed for thyroid labs Please let her know congratulations!!! Miguelito Champion DO Patient just found out she is . About 5 weeks along. When should she check TSH? She did stop the tirzepatide as soon as she found out she was . documented in this encounter [facility] 05-05-2024 Telephone encounter Note Order placed for thyroid labs Please let her know congratulations!!! Miguelito Champion DO [facility] 05-05-2024 Telephone encounter Note Patient notified and declines to schedule an appointment at this time. Patient states she will just wait to be seen on 05/23. Will call if she changes her mind and would like appointment to have HCG levels done. Juliana Huston RN [facility] 05-05-2024 Miscellaneous Notes Patient notified and [...] well. Thank you, Denae Renteria APRN.CNM LMP 05/31 Approximately 4w5d Patient has a hx of missed AB and partial molar . Denies cramping or bleeding. Asking for HCG levels for piece of mind. NOB is 05/23/24. Kristen Chang RN documented in this encounter [facility] 05-05-2024 Telephone encounter Note Please have patient make an appointment to review. Can be a virtual this week so we can make sure appropriate follow up as well. Thank you, Denae Renteria APRN.CNM [facility] Work Phone: 05-05-2024 Telephone encounter Note LMP 05/31 Approximately 4w5d Patient has a hx of missed AB and partial molar . Denies cramping or bleeding. Asking for HCG levels for piece of mind. NOB is 05/23/24. Kristen Chang, RN [facility] 05-05-2024 Telephone encounter Note Patient just found out she is . About 5 weeks along. When should she check TSH? She did stop the tirzepatide as soon as she found out she was . [facility] 04-23-2024 Telephone encounter Note Patient has been [...] Please advise. Thank you. Lisa León LPN. [facility] Work Phone: 04-23-2024 Miscellaneous Notes Patient has [...] Lisa León LPN. documented in this encounter [facility] 04-14-2024 Telephone encounter Note See update from pt regarding thyroid dosage. Is requesting refill to be sent to Mail order, this has been pended. Update pt via Giggzo once this has been sent. Romina Wells MA [facility] 04-14-2024 Miscellaneous Notes See update from pt regarding thyroid dosage. Is requesting refill to be sent to Mail order, this has been pended. Update pt via Tufinhart once this has been sent. Romina Wells MA Sent pt Giggzo message notifying her we've attempted to reach her by phone with messages left requesting a call back. Sent [employer]iggzo message with results and recommendations below from [...] dosage of medication just slightly. Thank you, Karentim Azar APRN.MOLD MAKING PLASTICS SHEETS SUPERVISOR documented in this encounter [facility] 04-14-2024 Progress note Formatting of t his note might be different from the original. Sent pt mychart message notifying her we've attempted to reach her by phone with messages left requesting a call back. Sent mychart message with results and recommendations below from Provider. Asked pt to update office with how she would like to proceed. Wait pt response. Romina Wells MA [facility] 04-08-2024 Telephone encounter Note Left a message for pt to call the office and ask to speak to a nurse. Renetta Sawyer LPN [facility] 04-07-2024 Telephone encounter Note Lft message to return call. [facility] 04-07-2024 Telephone encounter Note Please call patient and let her know that thyroid labs are improved. TSH is now WNL. However, there is still room to improve this, especially with T3 low now. See how patient is feeling and if symptomatic still. IF so, we can increase dosage of medication just slightly. Thank you, Karen Azar APRN.MOLD MAKING PLASTICS SHEETS SUPERVISOR [facility] 03-19-2024 Telephone encounter Note Pt. informed via My Chart [facility] Work Phone: 03-19-2024 Miscellaneous Notes Pt. informed via My Chart I am not aware of any of this information with the [facility] pharmacy Recommend that she calls and asks [...] one more refill at the [facility] I will be able to peanut picker for the month of March. Thank you for all you do! Ali documented in this encounter [facility] 03-18-2024 Telephone encounter Note I am not aware of any of this information with the [facility] pharmacy Recommend that she calls and asks the pharmacy specifically any questions Miguelito Champion DO [facility] 03-11-2024 Telephone encounter Note Please see message from patients My Chart below. Hi Dr Chamipon, I just saw that the FDA was [...] one more refill at the [facility] I will be able to peanut picker for the month of March. Thank you for all you do! Ali [facility] 03-11-2024 Telephone encounter Note Transitioned to TE per provider preference. SHON Chavez [facility] 03-11-2024 Miscellaneous Notes Transitioned to TE per provider preference. SHON Chavez documented in this encounter [facility] 02-18-2024 Telephone encounter Note Pt notified of results via Giggzo. Glo Smith Ma [facility] 02-18-2024 Miscellaneous Notes Pt notified of results via [employer]. Glo Smith Ma Left message to return call. Go ahead and increase to 2.5 tablets 1-2 days per week. And let me know in 4-6 weeks how you are feeling. We can repeat labs then. Thank you, Karen Azar APRN.MOLD MAKING PLASTICS SHEETS SUPERVISOR Please see pt message - I would say overall I feel better than a few months ago but I have noticed hair loss, feeling some fatigue and a lower sex drive than what I would consider normal for me. I wouldn t be opposed to slightly changing things around to see if that improves? Thanks! Ali Pt informed via message Crystal Giraldo MA Please call patient and let her know that thyroid labs are greatly improved from 2 months ago. T3 and T4 are normal, however TSH is still slightly elevated. No change in regimen unless pt is symptomatic. Please see how she is feeling. Thank you, Karen Azar APRN.MOLD MAKING PLASTICS SHEETS SUPERVISOR documented in this encounter [facility] 02-15-2024 Telephone encounter Note Left message to return call. [facility] 02-15-2024 Telephone encounter Note Go ahead and increase to 2.5 tablets 1-2 days per week. And let me know in 4-6 weeks how you are feeling. We can repeat labs then. Thank you, Karen Azar APRN.MOLD MAKING PLASTICS SHEETS SUPERVISOR [facility] 02-14-2024 Telephone encounter Note Please see pt message - I would say overall I feel better than a few months ago but I have noticed hair loss, feeling some fatigue and a lower sex drive than what I would consider normal for me. I wouldn t be opposed to slightly changing things around to see if that improves? Thanks! Ali [facility] 02-14-2024 Telephone encounter Note Pt informed via message Crystal Giraldo MA [facility] 02-14-2024 Telephone encounter Note Please call patient and let her know that thyroid labs are greatly improved from 2 months ago. T3 and T4 are normal, however TSH is still slightly elevated. No change in regimen unless pt is symptomatic. Please see how she is feeling. Thank you, Karen Azar APRN.MOLD MAKING PLASTICS SHEETS SUPERVISOR [facility] 01-16-2024 Telephone encounter Note Turned into TE Crystal Giraldo MA [facility] 01-16-2024 Miscellaneous Notes Turned into TE Crystal Giraldo MA documented in this encounter [facility] 12-20-2023 Telephone encounter Note Left a detailed message that prescription was sent to the pharmacy and the dose was increased. Renetta Sawyer LPN [facility] 12-20-2023 Miscellaneous Notes Left a detailed message that prescription was sent to the pharmacy and the dose was increased. Renetta Sawyer LPN Okay to increase dose as below rx sent to pharmacy Miguelito Champion DO The following approved medication [...] tirzepatide sent to [facility] in [place]. I have probably enough for one more week on the 7.5 mg dose. Scale still not changing (ranging 214-216 since 10/10/23) but I can wait to increase the dose if that s what you prefer since I ve only been back on the increased dose of DATA OFFICER thyroid for about 3 weeks now. Just let me know! Thanks! Ali documented in this encounter [facility] 12-19-2023 Telephone encounter Note Okay to increase dose as below rx sent to pharmacy Miguelito Champion DO The following approved medication requests have been transmitted electronically. Requested Prescriptions Signed Prescriptions Disp Refills tirzepatide (MOUNJARO) 10 mg/0.5 mL pen injector 3 mL 3 Sig: Inject 10 mg subcutaneously one time a week. Authorizing Provider: MIGUELITO CHAMPION DO [facility] 12-19-2023 Telephone encounter Note Patient sent message check on status Any updates on the new script being sent over? I m using the last of what I have today and the pharmacy has no refills on file. I typically pick it up on Tuesdays and then take it on Wednesdays. I haven t missed a weekly dose since starting in March. Thanks! [facility] 12-12-2023 Telephone encounter Note re there lab orders in for when you d like me to recheck thyroid levels? Also, I will need a new script for the tirzepatide sent to [facility] in [place]. I have probably enough for one more week on the 7.5 mg dose. Scale still not changing (ranging 214-216 since 10/10/23) but I can wait to increase the dose if that s what you prefer since I ve only been back on the increased dose of DATA OFFICER thyroid for about 3 weeks now. Just let me know! Thanks! Ali [facility] Work Phone: 12-12-2023 Telephone encounter Note See telephone note. [facility] Work Phone: 12-12-2023 Miscellaneous Notes See telephone note. documented in this encounter [facility] 11-23-2023 Telephone encounter Note MC message read 12:11pm on 11/21. Crystal Giraldo MA [facility] 11-23-2023 Miscellaneous Notes MC message read 12:11pm on 11/21. Crystal Giraldo MA Phoned patient left message to return call and ask to speak to a nurse for results. Also sent message on her my chart with results below. Please have her increase her DATA OFFICER thyroid to take 2 tablets (120 mg) [...] so just let me know! Thank you! Nena documented in this encounter [facility] 11-22-2023 Telephone encounter Note Phoned patient left message to return call and ask to speak to a nurse for results. Also sent message on her my chart with results below. [facility] 11-21-2023 Telephone encounter Note Please have her increase her DATA OFFICER thyroid to take 2 tablets (120 mg) every day in the AM. Lets wait for 1-2 months to see if this helps her weight loss before increasing the GLP1 agonist for weight loss Miguelito Champion DO [facility] 11-21-2023 Telephone encounter Note Please see [...] just let me know! Thank you! Ali [facility] 10-04-2023 Telephone encounter Note Sent to provider via JAVAN Giraldo MA [facility] 10-04-2023 Miscellaneous Notes Sent to provider via JAVAN Giraldo MA documented in this encounter [facility] 09-24-2023 Telephone encounter Note Okay to take rx as below Miguelito Champion DO The following approved medication requests have been transmitted electronically. Requested Prescriptions Signed Prescriptions Disp Refills mebendazole (VERMOX) 100 mg chewable tablet 2 tablet 0 Sig: Take 1 tablet PO once. Repeat dose in 2 weeks Authorizing Provider: MIGUELITO CHAMPION DO [facility] 09-24-2023 Miscellaneous Notes Okay to take [...] Lavonne Meehan RN documented in this encounter [facility] 09-22-2023 Telephone encounter Note Patient calling to request medication for self and family members for pin worm. 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 Advised PCP out of office. Advised EC evaluation for sooner treatment. Lavonne Meehan RN [facility] 08-17-2023 Telephone encounter Note Letter sent to pts home. Closed. [facility] 08-17-2023 Miscellaneous Notes Letter sent to pts home. Closed. 3rd attempt to reach patient. Left message to return call. Crystal Giraldo MA Left message to return call. Left message to return call Crystal Giraldo MA Please inform patient that her labs were off with her free t3 high, normal free t4, high TSH levels. Would like her to cut back to taking DATA OFFICER thyroid 120 mg 5 days a week and only 60 mg on 2 days a week Rechecck thyroid labs in 6-8 weeks Also her white blood cell count was slightly high. Would like this rechecked when thyroid labs are rechecked Miguelito Champion DO documented in this encounter [facility] 08-14-2023 Telephone encounter Note 3rd attempt to reach patient. Left message to return call. Crystal Giraldo MA [facility] 08-10-2023 Telephone encounter Note Left message to return call. [facility] 08-08-2023 Telephone encounter Note Left message to return call Crsytal Giraldo MA T [facility] 08-08-2023 Telephone encounter Note Please inform patient that her labs were off with her free t3 high, normal free t4, high TSH levels. Would like her to cut back to taking DATA OFFICER thyroid 120 mg 5 days a week and only 60 mg on 2 days a week Rechecck thyroid labs in 6-8 weeks Also her white blood cell count was slightly high. Would like this rechecked when thyroid labs are rechecked Miguelito Champion DO T [facility] 07-21-2023 History of Present illness Narrative [...] to have labs rechecked. She is taking DATA OFFICER thyroid hormone Vitamin D deficiency, taking supplement [...] once daily. cetirizine (ZYRTEC) 10 mg tablet DATA OFFICER THYROID 60 mg tablet TAKE 2 TABLETS [...] lb 12.8 oz) Height: 165 cm (5' 4.96) Gen: A&O, NAD, non-toxic appearing, Pleasant, cooperative [...] in the morning or at bedtime. Continue DATA OFFICER thyroid 3. Class 2 obesity with body [...] with the plan. Miguelito Champion DO [address] [place] [address] documented in this encounter [facility] 04-06-2023 Miscellaneous Notes Pt was notified by my chart. She'll need to schedule an appt to discuss this. Humberto Goldman APRN.MIKE Below message from patient Shanel: Hi Dr Champion, I am a little conflicted asking this but as you know, I ve been working to lose weight I initially gained with Breyson s and never was able to get [...] doing amazing! Ali documented in this encounter [facility] 04-02-2023 Miscellaneous Notes The following approved medication requests have been transmitted electronically. Requested Prescriptions Signed Prescriptions Disp Refills DATA OFFICER THYROID 60 mg tablet 180 tablet 3 Sig: TAKE 2 TABLETS BY MOUTH EVERY DAY Authorizing Provider: MARK ZAZUETA PA-C Patient has been identified by name and date of : Yes, Provider Miguelito Champion DO Date April 02, 2023 Time 10:23 AM Patient phones for refill(s): Requested Prescriptions Pending Prescriptions Disp Refills DATA OFFICER THYROID 60 mg tablet 60 tablet 3 [...] Glo Smith Ma. documented in this encounter [facility] 03-22-2023 Miscellaneous Notes Sent to provider in phone encounter. documented in this encounter [facility] 12-25-2022 Miscellaneous Notes Sent pt a [...] great summer! Ali documented in this encounter [facility] 11-01-2022 Miscellaneous Notes Pt. informed via My Chart. Thyroid labs are all normal. Continue current regimen. Karen Azar APRN.MIKE Please see patient message Morning! I came [...] have resolved now. documented in this encounter [facility] 10-31-2022 Miscellaneous Notes Made into TE documented in this encounter [facility] 10-26-2022 Miscellaneous Notes It appears their was a verbal order given to pharmacy on 10/23/22. TE started and routed to PCP to review and advise. Will keep encounter open to update pt. Romina Wells Ma documented in this encounter [facility] 10-23-2022 Miscellaneous Notes Pharmacy called and now needs to be ordered Thyroid 60 mg. that Verbal order was given. I don't know what rx is available for her to change to. We need to call pharmacy and clarify? [facility] thyroid vs. Nature Thyroid etc Miguelito Champion DO Pt sent Giggzo message today regarding issues with Thyroid medication. On 10/13/22, same medication was sent in it looks like but different dosage. See message below from pt and advise in Tufinhart message or TE. Message: Hi! I received a text from [employer] saying my thyroid medication was no longer being manufactured as DATA OFFICER thyroid and it was needing to be [...] Rx? Thank you! documented in this encounter [facility] 10-13-2022 Miscellaneous Notes Patient phones requesting refills as follows: Pharmacy comment: Alternative Requested:THIS APPEARS TO HAVE DISCONTINUED. SPECIFICALLY THIS BRAND. Requested Prescriptions Pending Prescriptions Disp Refills DATA OFFICER THYROID 60 mg tablet [Pharmacy Med Name: DATA OFFICER THYROID 60 MG TABLET] 60 tablet 3 Sig: TAKE 2 TABLETS BY MOUTH EVERY DAY Please review and advise. Yanni Evans LPN documented in this encounter [facility] 10-12-2022 Miscellaneous Notes Pt informed via Giggzo message Crystal Giraldo Noted, please make sure she know that this was only 2 weeks before she had her labs checked so not long enough to know if helping yet. Needs to be 6-8 weeks to know if dose change of thyroid medication is helping her levels so no further med change at this time Miguelito Champion DO Please see pt Giggzo message- Hi! When I was in to see Marycarmen a few weeks ago she adjusted my dose to 2 tablets daily. I ve been on a that since she made the change 3rd attempt to contact pt with no answer. Left message to return call. Will also send pt [employer] message. Crystal Giraldo Left message to return call. Left message for patient to call office back Colleen Mendieta Ma Please inform patient that her TSH is high and free t4 is low normal. Her dose of thyroid hormone needs to be increased. What is she currently taking? Miguelito Champion DO documented in this encounter [facility] 09-29-2022 Miscellaneous Notes Results and provider message sent to patient via Spokeable message per patient request. Patient already started [...] to number on form. I recommend increasing DATA OFFICER thyroid to 2 tablets every day of the week. This will keep regimen easier as well. Recheck labs in 6 weeks. The rest of lab work looks fantastic! Please also let her know that paperwork for employer physical is filled out. Please fax. This is in my outbox. Thank you, Karen Azar APRN.[employer] MA[employer] SHEETS SUPERVISOR See My Chart Message below: I just saw the thyroid labs come through [employer]. I m just messaging to let you know that I am taking the 60 mg 2 tablets M- and 1 tablet Sat & Sun. No [...] Gay Rod RN documented in this encounter [facility] 09-23-2022 Miscellaneous Notes Turned Into Telephone Encounter. documented in this encounter [facility] 09-22-2022 History of Present illness Narrative [...] CONTROL) 300 mg cap Take by mouth. DATA OFFICER THYROID 60 mg tablet Take 1 tablet [...] 64 Resp 12 Ht 164 cm (5' 4.57) Wt 111.3 kg (245 lb 6.4 oz) [...] diet of 1000 mg/day for under 50, 0113-2631 mg/day for 50+ - Depression screening tool [...] Patient agreeable to treatment plan. Karen Calles APRN.M[employer] MAKING [employer] SHEETS SUPERVISOR [address] [place] [address] documented in this encounter [facility] 08-28-2022 Miscellaneous Notes Copied to phone note. documented in this encounter [facility] 08-08-2022 Miscellaneous Notes Left another message for patient with negative results and recommendations.Dolores Valentin LPN Left message for pt to call back. Amanda Morgan MA ----- Message from Gita Argueta APRN.M[employer] MAKING [employer] SHEETS SUPERVISOR sent at 08/06/2022 8:10 AM EDT ----- [...] provider instructions. Gay Rod RN Please call Nena and have her change rx to below based on recent thyroid lab results Recheck labs in 2-3 months Miguelito Champion DO The following approved medication requests have been transmitted electronically. Requested Prescriptions Signed Prescriptions Disp Refills DATA OFFICER THYROID 60 mg tablet 144 tablet 3 [...] can you send an updated prescription to [facility] so I don t run out? Thank you for all you do! documented in this encounter [facility] 06-26-2022 Miscellaneous Notes Turned into JAVAN Giraldo documented in this encounter [facility] 06-13-2022 History of Present illness Narrative This note was created using Myworldwallriter. Subjective Nena Leiva is a 32 year [...] Current Outpatient Medications Medication Sig Dispense Refill DATA OFFICER THYROID 60 mg tablet Take 1 tablet [...] Reported on 06/13/2022) Biotin 10,000 mcg cap Zsdyrddu-No-Apg-Fe-FA tab Take 1 tablet by mouth. (Patient not taking: Reported on 06/13/2022) No current facility-administered medications for this visit. PAST SURGICAL HISTORY Procedure Laterality Date DILATION & CURETTAGE DX&/THER NONOBSTETRIC 03/28/2018 Dilation & curettage PAST SURGICAL HISTORY OF 05/22 extraction of wisdom teeth FAMILY HISTORY Problem [...] Paula Lang PA-C documented in this encounter [facility] 04-07-2022 Miscellaneous Notes Pt informed Crystal Giraldo Yes Dr. Champion will take them as patients. They'll likely need to see Karen or myself. Humberto Goldman APRN.M[employer] MAKING [employer] SHEETS SUPERVISOR documented in this encounter [facility] 12-09-2021 Miscellaneous Notes Alexandro--07/06/21 Nov--nothing booked Last refill--07/08/21 120 with 2 refills Last labs--07/06/21 documented in this encounter [facility] 07-06-2021 History of Present illness Narrative CC: Nena Leiva is a 31 year old female who presents to the office for physical HPI: Overall she is feeling well. She has been working on her diet and exercise and has lost 50 lbs in the last 2 years after her twins have been born Hypothyroidism, taking DATA OFFICER thyroid hormone 2 days a week 2 [...] Son other (Eczema) Son Current Outpatient prescriptions: DATA OFFICER THYROID 60 mg Take 1 tablet 5 days a week and 2 tablets 2 days a week naltrexone 4.5 mg capsule Take 4.5 mg by mouth daily at bedtime. Biotin 10,000 mcg cap Unutnacw-Io-Vjt-Fe-FA ( VITAMIN) tab Take 1 tablet by [...] kg (229 lb) Height: 164.5 cm (5' 4.76) Gen: A&O, NAD, non-toxic appearing, Pleasant, cooperative [...] diet of 1000 mg/day for under 50, 5661-6938 mg/day for 50+ 2. Acquired hypothyroidism - ICD9: 244.9, ICD10: E03.9 - Instructed patient on importance of taking on an empty stomach either first thing in the morning or at bedtime. - check TSH, free T4 and Free T3 today Stable - Continue current medications - TSH BLD - T4 FREE/FREE THYROX - T3 FREE BLD - THYROID PEROXIDASE ANTIBODY BLOOD Migueilto Champion DO To ER if develops chest pain, shortness of breath, or severe worsening of symptoms. Discussed risks, benefits, alternatives, and potential side effects of medications. Patient expressed understanding and agreed with the plan. Miguelito Champion DO [address] [place] [address] THE LAST 2 WEEKS, HAVE YOU BEEN [...] DIFFICULT AT ALL documented in this encounter [facility] 06-15-2021 Miscellaneous Notes Upcoming office visit and blood work this month. Will fill enough to get to this point. The following approved medication requests have been transmitted electronically. Signed Prescriptions Disp Refills DATA OFFICER THYROID 60 mg 108 tablet 1 Sig: Take 1 tablet 5 days a week and 2 tablets 2 days a week VIRIDIANA: Yes Authorizing Provider: KAREN CALLES APRN.M[employer] SHEETS SUPERVISOR Patient has been identified by name and date of : Yes Patient only has a few left of medication, see Giggzo message. Patient phones for refill(s): Pending Prescriptions Disp Refills DATA OFFICER THYROID 60 MG TABLET 108 tablet 1 Sig: Take 1 tablet 5 days a week and 2 tablets 2 days a week VIRIDIANA: Yes Date of last office visit in primary care: 05/30/19 Please advise. Thank you. Dolores Layton LPN documented in this encounter [facility] 05-23-2021 Miscellaneous Notes The following approved medication requests have been transmitted electronically. Signed Prescriptions Disp Refills DATA OFFICER THYROID 60 mg 108 tablet 1 Sig: Take 1 tablet 5 days a week and 2 tablets 2 days a week VIRIDIANA: Yes Authorizing Provider: KAREN CALLES Ordering User: HUMBERTO GOLDMAN APRN.CNP alexandro-- 05/30/19 Last refill 05/18/21 33 with 0 refills documented in this encounter [facility] 05-18-2021 Miscellaneous Notes The following approved medication requests have been transmitted electronically. Signed Prescriptions Disp Refills DATA OFFICER THYROID 60 mg 34 tablet 0 Sig: Take 1 tablet 5 days a week and 2 tablets 2 days a week VIRIDIANA: Yes Authorizing Provider: KAREN CALLES APRN.CNP .Spoke with patient. Given message from provider's office. Patient verbalizes understanding. She is taking DATA OFFICER Thyroid as prescribed in note below. Please send new script to [facility]. Lavonne Meehan RN left with patient to contact office for results Crystal Mahajan Ma Please let patient know we got her blood work results. Her TSH is very elevated. Please clarify that she is taking DATA OFFICER thyroid 60 mg 6x/week and 2 tablets [...] results once we have them. Karen Calles APRN.CNP documented in this encounter [facility] 05-04-2021 Miscellaneous Notes Reminded of lab work by my chart. Remind patient that she needs blood work from 05/02 prior to any additional refills. The following approved medication requests have been transmitted electronically. Pending Prescriptions Disp Refills DATA OFFICER THYROID 60 MG TABLET 28 tablet 0 Sig: Take 1 tablet 1 days a week and 2 tablets 6 days a week VIRIDIANA: Yes Karen Calles APRN.CNP Patient has been identified by name and date of : Yes Patient phones for refill(s): Pending Prescriptions Disp Refills DATA OFFICER THYROID 60 MG TABLET 28 tablet 0 Sig: Take 1 tablet 1 days a week and 2 tablets 6 days a week VIRIDIANA: Yes Date of last office visit in primary care: appointment scheduled 07/06/2021 Please advise. Thank you. Dolores Layton LPN documented in this encounter [facility] 05-02-2021 Miscellaneous Notes Pt. informed via My Chart. Lisa León LPN Patient needs routine office visit d/t last visit almost 2 years ago. Blood work placed prior to scheduled appointment. Please assist in making appointment. The following approved medication requests have been transmitted electronically. Signed Prescriptions Disp Refills DATA OFFICER THYROID 60 mg 28 tablet 0 Sig: Take 1 tablet 1 days a week and 2 tablets 6 days a week VIRIDIANA: Yes Authorizing Provider: KAREN CALLES APRN.M[employer] MA[employer]ETS SUPERVISOR Patient phones requesting refills as follows: Pending Prescriptions Disp Refills DATA OFFICER THYROID 60 MG TABLET 28 tablet 0 Sig: Take 1 tablet 1 days a week and 2 tablets 6 days a week VIRIDIANA: Yes ALEXANDRO-05/30/19 Labs-02/07/21 NOV-none med filled 08/30/20 Please review and advise. Yanni Evans LPN documented in this encounter [facility] 04-06-2020 History of Present illness Narrative [...] 2020 9:49 AM documented in this encounter [facility] 12-19-2018 History of Past i llness [...] and optimal weight gain. Recommended patient see advertiser to discuss further. Patient will consider. TKRN [...] of this encounter (statuses as of 05/02/2021) [facility] History of Past illness Narrative* Problem [...] and optimal weight gain. Recommended patient see advertiser to discuss further. Patient will consider. TKRN [...] of this encounter (statuses as of 05/04/2021) [facility] History of Past illness Narrative* Problem [...] and optimal weight gain. Recommended patient see advertiser to discuss further. Patient will consider. TKRN [...] of this encounter (statuses as of 05/18/2021) [facility] History of Past illness Narrative* Problem [...] and optimal weight gain. Recommended patient see advertiser to discuss further. Patient will consider. TKRN [...] of this encounter (statuses as of 05/23/2021) [facility] History of Past illness Narrative* Problem [...] and optimal weight gain. Recommended patient see advertiser to discuss further. Patient will consider. TKRN [...] of this encounter (statuses as of 06/15/2021) [facility] History of Past illness Narrative* Problem [...] and optimal weight gain. Recommended patient see advertiser to discuss further. Patient will consider. TKRN [...] of this encounter (statuses as of 07/06/2021) [facility] History of Past illness Narrative* Problem [...] and optimal weight gain. Recommended patient see advertiser to discuss further. Patient will consider. TKRN [...] of this encounter (statuses as of 08/19/2021) [facility] History of Past illness Narrative* Problem [...] and optimal weight gain. Recommended patient see advertiser to discuss further. Patient will consider. TKRN [...] of this encounter (statuses as of 12/09/2021) [facility] History of Past illness Narrative* Problem [...] and optimal weight gain. Recommended patient see advertiser to discuss further. Patient will consider. TKRN [...] of this encounter (statuses as of 04/07/2022) [facility] History of Past illness Narrative* Problem [...] and optimal weight gain. Recommended patient see advertiser to discuss further. Patient will consider. TKRN [...] of this encounter (statuses as of 06/14/2022) [facility] History of Past illness Narrative* Problem [...] and optimal weight gain. Recommended patient see advertiser to discuss further. Patient will consider. TKRN [...] of this encounter (statuses as of 06/26/2022) [facility] History of Past illness Narrative* Problem [...] and optimal weight gain. Recommended patient see advertiser to discuss further. Patient will consider. TKRN [...] of this encounter (statuses as of 08/08/2022) [facility] History of Past illness Narrative* Problem [...] and optimal weight gain. Recommended patient see advertiser to discuss further. Patient will consider. TKRN [...] of this encounter (statuses as of 08/28/2022) [facility] History of Past [facility] Narrative* Problem [...] and optimal weight gain. Recommended patient see advertiser to discuss further. Patient will consider. TKRN [...] of this encounter (statuses as of 09/22/2022) [facility] History of Past illness Narrative* Problem [...] and optimal weight gain. Recommended patient see advertiser to discuss further. Patient will consider. TKRN [...] of this encounter (statuses as of 09/23/2022) [facility] of Past illness Narrative* Problem [...] and optimal weight gain. Recommended patient see advertiser to discuss further. Patient will consider. TKRN [...] of this encounter (statuses as of 09/30/2022) [facility] History of Past illness Narrative* Problem [...] and optimal weight gain. Recommended patient see advertiser to discuss further. Patient will consider. TKRN [...] of this encounter (statuses as of 10/02/2022) [facility] History of Past illness Narrative* Problem [...] and optimal weight gain. Recommended patient see advertiser to discuss further. Patient will consider. TKRN [...] of this encounter (statuses as of 10/13/2022) [facility] of Past [facility] Narrative* Problem [...] and optimal weight gain. Recommended patient see advertiser to discuss further. Patient will consider. TKRN [...] of this encounter (statuses as of 10/13/2022) [facility] of [facility] Narrative* Problem [...] and optimal weight gain. Recommended patient see advertiser to discuss further. Patient will consider. TKRN [...] of this encounter (statuses as of 10/23/2022) [facility] of Past illness Narrative* Problem [...] and optimal weight gain. Recommended patient see advertiser to discuss further. Patient will consider. TKRN [...] of this encounter (statuses as of 10/26/2022) [facility] of Past illness Narrative* Problem [...] and optimal weight gain. Recommended patient see advertiser to discuss further. Patient will consider. TKRN [...] of this encounter (statuses as of 10/31/2022) [facility] of [facility] Narrative* Problem [...] and optimal weight gain. Recommended patient see advertiser to discuss further. Patient will consider. TKRN [...] of this encounter (statuses as of 11/02/2022) [facility] of [facility] Narrative* Problem [...] and optimal weight gain. Recommended patient see advertiser to discuss further. Patient will consider. TKRN [...] of this encounter (statuses as of 12/26/2022) [facility] of Past illness Narrative* Problem [...] and optimal weight gain. Recommended patient see advertiser to discuss further. Patient will consider. TKRN [...] of this encounter (statuses as of 03/22/2023) [facility] of [facility] Narrative* Problem [...] and optimal weight gain. Recommended patient see advertiser to discuss further. Patient will consider. TKRN [...] of this encounter (statuses as of 04/02/2023) [facility] History of [facility] Narrative* Problem [...] month. TKRN Obesity in 03/14/2018 019 Overview: 11/07/2019Patient is obese. Will plan on GCt@ NOB. TKRN Excessive weight gain during , antepartum 03/14/2018 03/28/2018 Overview: 03/14/2018 Patient states she had a 70# weight gain last . Discussed good nutrition during and optimal weight gain. Recommended patient see advertiser to discuss further. Patient will consider. TKRN [...] of this encounter (statuses as of 04/06/2023) [facility] Wellness examination- Primary Acquired hypothyroidism Unspecified hypothyroidism [facility] note* Diagnosis Acquired hypothyroidism Unspecified [facility] hypothyroidism Unspecified hypothyroidism [facility] Diagnosis Acquired hypothyroidism Unspecified hypothyroidism [facility] Diagnosis Wellness examination- Primary Acquired hypothyroidism Unspecified hypothyroidism [facility] Diagnosis Acquired hypothyroidism Unspecified hypothyroidism [facility] Diagnosis Cat scratch of forearm, left, initial encounter- Primary [facility] Diagnosis Acquired hypothyroidism Unspecified hypothyroidism [facility] Diagnosis Wellness examination- Primary Acquired hypothyroidism Unspecified hypothyroidism [facility] Diagnosis Acquired hypothyroidism Unspecified hypothyroidism [facility] Diagnosis Wellness examination- Primary documented in this encounter [facility]* Diagnosis Acquired hypothyroidism Unspecified hypothyroidism documented in this encounter [facility] note* Diagnosis Wellness examination- Primary Acquired hypothyroidism Unspecified hypothyroidism Class 2 obesity with body mass index (BMI) of 37.0 to 37.9 in adult, unspecified obesity type, unspecified whether serious comorbidity present documented in this encounter [facility] note* Diagnosis Acquired hypothyroidism- Primary Unspecified hypothyroidism Leukocytosis, unspecified type documented in this encounter [facility] note* Diagnosis Class 2 obesity with body mass index (BMI) of 37.0 to 37.9 in adult, unspecified obesity type, unspecified whether serious comorbidity present- Primary documented in this encounter [facility] note* Diagnosis Acquired hypothyroidism- Primary Unspecified hypothyroidism documented in this encounter [facility] note* Diagnosis Acquired hypothyroidism Unspecified hypothyroidism documented in this encounter [facility] note* Diagnosis Class 2 obesity with body mass index (BMI) of 37.0 to 37.9 in adult, unspecified obesity type, unspecified whether serious comorbidity present documented in this encounter [facility] note* Diagnosis Hypothyroidism, acquired- Primary Unspecified hypothyroidism documented in this encounter [facility] note* Diagnosis High-risk , multigravida of advanced maternal age, antepartum (HCC)- Primary Twin gestation in first trimester, unspecified multiple gestation type (HCC) 7 weeks gestation of ([facility]) state, incidental with uncertain dates in first trimester ([facility]) Screen for STD (sexually transmitted disease) Screening examination for venereal disease Screening for cervical cancer Screening for malignant neoplasm of the cervix Special screening examination for human papillomavirus (HPV) documented in this encounter [facility] note* Diagnosis Hypothyroidism, acquired- Primary Unspecified hypothyroidism documented in this encounter [facility] note* Diagnosis Twin with single intrauterine , first trimester, fetus 1 (HCC)- Primary 13 weeks gestation of ([facility]) state, incidental Obesity affecting in second trimester, unspecified obesity type (HCC) documented in this encounter [facility] note* Diagnosis screening for malformation using ultrasonics ([facility])- Primary Encounter for routine screening for malformation using ultrasonics Obesity affecting in second trimester, unspecified obesity type (HCC) Twin with single intrauterine , first trimester, fetus 1 (HCC) 16 weeks gestation of ([facility]) state, incidental [facility] Diagnosis Supervision of high risk in second trimester ([facility])- Primary Unspecified high-risk 16 weeks gestation of ([facility]) state, incidental Twin with single intrauterine , first trimester, fetus 1 (HCC) Obesity affecting in second trimester, unspecified obesity type ([facility]) AMA (advanced maternal age) multigravida 35+, second trimester ([facility]) Hypothyroidism affecting in second trimester ([facility]) [facility]* Diagnosis Wellness examination- Primary Screening for depression Encounter for screening examination for other mental health and behavioral disorders Acquired hypothyroidism Unspecified hypothyroidism 20 weeks gestation of ([facility]) state, incidental [facility] Diagnosis Family history of congenital heart defect- Primary Family history of congenital anomalies with uncertain dates in first trimester ([facility]) High-risk , multigravida of advanced maternal age, antepartum ([facility]) 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 ([facility]) Class 2 obesity without serious comorbidity with body mass index (BMI) of 37.0 to 37.9 in adult, unspecified obesity type [facility] Diagnosis Twin with single intrauterine , first trimester, fetus 1 ([facility])- Primary 20 weeks gestation of ([facility]) state, incidental Supervision of high risk in second trimester ([facility]) Unspecified high-risk AMA (advanced maternal age) multigravida 35+, second trimester ([facility]) Obesity affecting in second trimester, unspecified obesity type ([facility]) High-risk , multigravida of advanced maternal age, antepartum ([facility]) [facility]* Diagnosis Hypothyroidism, acquired- Primary Unspecified hypothyroidism [facility]* Diagnosis Supervision of high risk in second trimester ([facility])- Primary Unspecified high-risk 28 weeks gestation of ([facility]) state, incidental Twin with single intrauterine , first trimester, fetus 1 ([facility]) AMA (advanced maternal age) multigravida 35+, second trimester (HCC) Obesity affecting in second trimester, unspecified obesity type ([facility]) Hypothyroidism affecting in second trimester ([facility]) Rh negative state in antepartum period (HCC) Rhesus isoimmunization affecting management of mother, antepartum condition High-risk , multigravida of advanced maternal age, antepartum (HCC) documented in this encounter [facility] note* Diagnosis High-risk , multigravida of advanced maternal age, antepartum (HCC) 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 (HCC) Class 2 obesity without serious comorbidity with body mass index (BMI) of 37.0 to 37.9 in adult, unspecified obesity type documented in this encounter [facility] note* Diagnosis Acquired hypothyroidism- Primary Unspecified hypothyroidism documented in this encounter [facility] note* Diagnosis 30 weeks gestation of (HCC)- Primary state, incidental Supervision of high risk in second trimester (HCC) Unspecified high-risk Twin with single intrauterine , first trimester, fetus 1 (HCC) AMA (advanced maternal age) multigravida 35+, second trimester (HCC) Obesity affecting in second trimester, unspecified obesity type (HCC) documented in this encounter [facility] Reason for Referral Specialty Diagnoses / Procedures Referred By Judy cordero Referred To Contact Diagnoses Class 2 obesity with body mass index (BMI) of 37.0 to 37.9 in adult, unspecified obesity type, unspecified whether serious comorbidity present Miguelito Champion, [address] [place] [address] Referral ID Status Reason Start Date Expiration Date Visits Re quested Visits Authorized [id number] Closed 12/19/2023 02/17/2024 1 1 Summary Purpose [...] or prosecute any alcohol or drug abuse patient.[facility] the event this information is protected by the Federal Confidentiality of Alcohol and Drug Abuse Patient Records regulations: The Federal rules restrict any use of the information to criminally investigate or prosecute any alcohol or drug abuse patient.[facility] the event this information is protected by the Federal Confidentiality of Alcohol and Drug Abuse Patient Records regulations: The Federal rules restrict any use of the information to criminally investigate or prosecute any alcohol or drug abuse patient.[facility] the event this information is protected by the Federal Confidentiality of Alcohol and Drug Abuse Patient Records regulations: The Federal rules restrict any use of the information to criminally investigate or prosecute any alcohol or drug abuse patient.[facility] the event this information is protected by the Federal Confidentiality of Alcohol and Drug Abuse Patient Records regulations: The Federal rules restrict any use of the information to criminally investigate or prosecute any alcohol or drug abuse patient.[facility] the event this information is protected by the Federal Confidentiality of Alcohol and Drug Abuse Patient Records regulations: The Federal rules restrict any use of the information to criminally investigate or prosecute any alcohol or drug abuse patient.[facility] the event this information is protected by the Federal Confidentiality of Alcohol and Drug Abuse Patient Records regulations: The Federal rules restrict any use of the information to criminally investigate or prosecute any alcohol or drug abuse patient.[facility] the event this information is protected by the Federal Confidentiality of Alcohol and Drug Abuse Patient Records regulations: The Federal rules restrict any use of the information to criminally investigate or prosecute any alcohol or drug abuse patient.[facility] the event this information is protected by the Federal Confidentiality of Alcohol and Drug Abuse Patient Records regulations: The Federal rules restrict any use of the information to criminally investigate or prosecute any alcohol or drug abuse patient.[facility] the event this information is protected by the Federal Confidentiality of Alcohol and Drug Abuse Patient Records regulations: The Federal rules restrict any use of the information to criminally investigate or prosecute any alcohol or drug abuse patient.[facility] the event this information is protected by the Federal Confidentiality of Alcohol and Drug Abuse Patient Records regulations: The Federal rules restrict any use of the information to criminally investigate or prosecute any alcohol or drug abuse patient.[facility] the event this information is protected by the Federal Confidentiality of Alcohol and Drug Abuse Patient Records regulations: The Federal rules restrict any use of the information to criminally investigate or prosecute any alcohol or drug abuse patient.[facility] the event this information is protected by the Federal Confidentiality of Alcohol and Drug Abuse Patient Records regulations: The Federal rules restrict any use of the information to criminally investigate or prosecute any alcohol or drug abuse patient.[facility] the event this information is protected by the Federal Confidentiality of Alcohol and Drug Abuse Patient Records regulations: The Federal rules restrict any use of the information to criminally investigate or prosecute any alcohol or drug abuse patient.[facility] the event this information is protected by the Federal Confidentiality of Alcohol and Drug Abuse Patient Records regulations: The Federal rules restrict any use of the information to criminally investigate or prosecute any alcohol or drug abuse patient.[facility] the event this information is protected by the Federal Confidentiality of Alcohol and Drug Abuse Patient Records regulations: The Federal rules restrict any use of the information to criminally investigate or prosecute any alcohol or drug abuse patient.[facility] the event this information is protected by the Federal Confidentiality of Alcohol and Drug Abuse Patient Records regulations: The Federal rules restrict any use of the information to criminally investigate or prosecute any alcohol or drug abuse patient.[facility] the event this information is protected by the Federal Confidentiality of Alcohol and Drug Abuse Patient Records regulations: The Federal rules restrict any use of the information to criminally investigate or prosecute any alcohol or drug abuse patient.[facility] the event this information is protected by the Federal Confidentiality of Alcohol and Drug Abuse Patient Records regulations: The Federal rules restrict any use of the information to criminally investigate or prosecute any alcohol or drug abuse patient.[facility] the event this information is protected by the Federal Confidentiality of Alcohol and Drug Abuse Patient Records regulations: The Federal rules restrict any use of the information to criminally investigate or prosecute any alcohol or drug abuse patient.[facility] the event this information is protected by the Federal Confidentiality of Alcohol and Drug Abuse Patient Records regulations: The Federal rules restrict any use of the information to criminally investigate or prosecute any alcohol or drug abuse patient.[facility] the event this information is protected by the Federal Confidentiality of Alcohol and Drug Abuse Patient Records regulations: The Federal rules restrict any use of the information to criminally investigate or prosecute any alcohol or drug abuse patient.[facility] the event this information is protected by the Federal Confidentiality of Alcohol and Drug Abuse Patient Records regulations: The Federal rules restrict any use of the information to criminally investigate or prosecute any alcohol or drug abuse patient.[facility] the event this information is protected by the Federal Confidentiality of Alcohol and Drug Abuse Patient Records regulations: The Federal rules restrict any use of the information to criminally investigate or prosecute any alcohol or drug abuse patient.[facility]In the event this information is protected by the Federal Confidentiality of Alcohol and Drug Abuse Patient Records regulations: The Federal rules restrict any use of the information to criminally investigate or prosecute any alcohol or drug abuse patient.[facility]In the event this information is protected by the Federal Confidentiality of Alcohol and Drug Abuse Patient Records regulations: The Federal rules restrict any use of the information to criminally investigate or prosecute any alcohol or drug abuse patient.[facility] HospitalIn the event this information is protected by the Federal Confidentiality of Alcohol and Drug Abuse Patient Records regulations: The Federal rules restrict any use of the information to criminally investigate or prosecute any alcohol or drug abuse patient.[facility] HospitalIn the event this information is protected by the Federal Confidentiality of Alcohol and Drug Abuse Patient Records regulations: The Federal rules restrict any use of the information to criminally investigate or prosecute any alcohol or drug abuse patient.[facility] HospitalIn the event this information is protected by the Federal Confidentiality of Alcohol and Drug Abuse Patient Records regulations: The Federal rules restrict any use of the information to criminally investigate or prosecute any alcohol or drug abuse patient.[facility] HospitalIn the event this information is protected by the Federal Confidentiality of Alcohol and Drug Abuse Patient Records regulations: The Federal rules restrict any use of the information to criminally investigate or prosecute any alcohol or drug abuse patient.[facility] HospitalIn the event this information is protected by the Federal Confidentiality of Alcohol and Drug Abuse Patient Records regulations: The Federal rules restrict any use of the information to criminally investigate or prosecute any alcohol or drug abuse patient.[facility] HospitalIn the event this information is protected by the Federal Confidentiality of Alcohol and Drug Abuse Patient Records regulations: The Federal rules restrict any use of the information to criminally investigate or prosecute any alcohol or drug abuse patient.[facility]In the event this information is protected by the Federal Confidentiality of Alcohol and Drug Abuse Patient Records regulations: The Federal rules restrict any use of the information to criminally investigate or prosecute any alcohol or drug abuse patient.[facility]In the event this information is protected by the Federal Confidentiality of Alcohol and Drug Abuse Patient Records regulations: The Federal rules restrict any use of the information to criminally investigate or prosecute any alcohol or drug abuse patient.[facility]In the event this information is protected by the Federal Confidentiality of Alcohol and Drug Abuse Patient Records regulations: The Federal rules restrict any use of the information to criminally investigate or prosecute any alcohol or drug abuse patient.[facility]In the event this information is protected by the Federal Confidentiality of Alcohol and Drug Abuse Patient Records regulations: The Federal rules restrict any use of the information to criminally investigate or prosecute any alcohol or drug abuse patient.[facility]In the event this information is protected by the Federal Confidentiality of Alcohol and Drug Abuse Patient Records regulations: The Federal rules restrict any use of the information to criminally investigate or prosecute any alcohol or drug abuse patient.[facility]In the event this information is protected by the Federal Confidentiality of Alcohol and Drug Abuse Patient Records regulations: The Federal rules restrict any use of the information to criminally investigate or prosecute any alcohol or drug abuse patient.[facility]In the event this information is protected by the Federal Confidentiality of Alcohol and Drug Abuse Patient Records regulations: The Federal rules restrict any use of the information to criminally investigate or prosecute any alcohol or drug abuse patient.[facility]In the event this information is protected by the Federal Confidentiality of Alcohol and Drug Abuse Patient Records regulations: The Federal rules restrict any use of the information to criminally investigate or prosecute any alcohol or drug abuse patient.[facility]In the event this information is protected by the Federal Confidentiality of Alcohol and Drug Abuse Patient Records regulations: The Federal rules restrict any use of the information to criminally investigate or prosecute any alcohol or drug abuse patient.[facility]In the event this information is protected by the Federal Confidentiality of Alcohol and Drug Abuse Patient Records regulations: The Federal rules restrict any use of the information to criminally investigate or prosecute any alcohol or drug abuse patient.[facility] HospitalIn the event this information is protected by the Federal Confidentiality of Alcohol and Drug Abuse Patient Records regulations: The Federal rules restrict any use of the information to criminally investigate or prosecute any alcohol or drug abuse patient.[facility]In the event this information is protected by the Federal Confidentiality of Alcohol and Drug Abuse Patient Records regulations: The Federal rules restrict any use of the information to criminally investigate or prosecute any alcohol or drug abuse patient.[facility]In the event this information is protected by the Federal Confidentiality of Alcohol and Drug Abuse Patient Records regulations: The Federal rules restrict any use of the information to criminally investigate or prosecute any alcohol or drug abuse patient.[facility]In the event this information is protected by the Federal Confidentiality of Alcohol and Drug Abuse Patient Records regulations: The Federal rules restrict any use of the information to criminally investigate or prosecute any alcohol or drug abuse patient.[facility]In the event this information is protected by the Federal Confidentiality of Alcohol and Drug Abuse Patient Records regulations: The Federal rules restrict any use of the information to criminally investigate or prosecute any alcohol or drug abuse patient.[facility]In the event this information is protected by the Federal Confidentiality of Alcohol and Drug Abuse Patient Records regulations: The Federal rules restrict any use of the information to criminally investigate or prosecute any alcohol or drug abuse patient.[facility]In the event this information is protected by the Federal Confidentiality of Alcohol and Drug Abuse Patient Records regulations: The Federal rules restrict any use of the information to criminally investigate or prosecute any alcohol or drug abuse patient.[facility]In the event this information is protected by the Federal Confidentiality of Alcohol and Drug Abuse Patient Records regulations: The Federal rules restrict any use of the information to criminally investigate or prosecute any alcohol or drug abuse patient.[facility]In the event this information is protected by the Federal Confidentiality of Alcohol and Drug Abuse Patient Records regulations: The Federal rules restrict any use of the information to criminally investigate or prosecute any alcohol or drug abuse patient.[facility]In the event this information is protected by the Federal Confidentiality of Alcohol and Drug Abuse Patient Records regulations: The Federal rules restrict any use of the information to criminally investigate or prosecute any alcohol or drug abuse patient.[facility]In the event this information is protected by the Federal Confidentiality of Alcohol and Drug Abuse Patient Records regulations: The Federal rules restrict any use of the information to criminally investigate or prosecute any alcohol or drug abuse patient.[facility]In the event this information is protected by the Federal Confidentiality of Alcohol and Drug Abuse Patient Records regulations: The Federal rules restrict any use of the information to criminally investigate or prosecute any alcohol or drug abuse patient.[facility]In the event this information is protected by the Federal Confidentiality of Alcohol and Drug Abuse Patient Records regulations: The Federal rules restrict any use of the information to criminally investigate or prosecute any alcohol or drug abuse patient.[facility]In the event this information is protected by the Federal Confidentiality of Alcohol and Drug Abuse Patient Records regulations: The Federal rules restrict any use of the information to criminally investigate or prosecute any alcohol or drug abuse patient.[facility]In the event this information is protected by the Federal Confidentiality of Alcohol and Drug Abuse Patient Records regulations: The Federal rules restrict any use of the information to criminally investigate or prosecute any alcohol or drug abuse patient.[facility] HospitalIn the event this information is protected by the Federal Confidentiality of Alcohol and Drug Abuse Patient Records regulations: The Federal rules restrict any use of the information to criminally investigate or prosecute any alcohol or drug abuse patient.[facility] HospitalIn the event this information is protected by the Federal Confidentiality of Alcohol and Drug Abuse Patient Records regulations: The Federal rules restrict any use of the information to criminally investigate or prosecute any alcohol or drug abuse patient.[facility] HospitalIn the event this information is protected by the Federal Confidentiality of Alcohol and Drug Abuse Patient Records regulations: The Federal rules restrict any use of the information to criminally investigate or prosecute any alcohol or drug abuse patient.[facility] HospitalIn the event this information is protected by the Federal Confidentiality of Alcohol and Drug Abuse Patient Records regulations: The Federal rules restrict any use of the information to criminally investigate or prosecute any alcohol or drug abuse patient.[facility] HospitalIn the event this information is protected by the Federal Confidentiality of Alcohol and Drug Abuse Patient Records regulations: The Federal rules restrict any use of the information to criminally investigate or prosecute any alcohol or drug abuse patient.[facility] HospitalIn the event this information is protected by the Federal Confidentiality of Alcohol and Drug Abuse Patient Records regulations: The Federal rules restrict any use of the information to criminally investigate or prosecute any alcohol or drug abuse patient.[facility] HospitalIn the event this information is protected by the Federal Confidentiality of Alcohol and Drug Abuse Patient Records regulations: The Federal rules restrict any use of the information to criminally investigate or prosecute any alcohol or drug abuse patient.[facility] HospitalIn the event this information is protected by the Federal Confidentiality of Alcohol and Drug Abuse Patient Records regulations: The Federal rules restrict any use of the information to criminally investigate or prosecute any alcohol or drug abuse patient.[facility] HospitalIn the event this information is protected by the Federal Confidentiality of Alcohol and Drug Abuse Patient Records regulations: The Federal rules restrict any use of the information to criminally investigate or prosecute any alcohol or drug abuse patient.[facility] HospitalIn the event this information is protected by the Federal Confidentiality of Alcohol and Drug Abuse Patient Records regulations: The Federal rules restrict any use of the information to criminally investigate or prosecute any alcohol or drug abuse patient.[facility] HospitalIn the event this information is protected by the Federal Confidentiality of Alcohol and Drug Abuse Patient Records regulations: The Federal rules restrict any use of the information to criminally investigate or prosecute any alcohol or drug abuse patient.[facility] Reason for Visit (unrecogniz ed section and content) Reason Onset Date Comments Refill Request 04/29/2021 Reason Onset Date Comments Refill Request 05/03/2021 Reason Comments Results Reason Onset Date Comments Refill Request 05/21/2021 Reason Onset Date Comments Refill Request 06/13/2021 Reason Comments Yearly Exam Specialty Diagnoses / Procedures Referred By Judy cordero Referred To Contact Family Practice / FAMILY MEDICINE Diagnoses Yearly physical Procedures OFFICE/OUTPATIENT ESTABLISHED MOD MDM 30-39 MIN MYC PHYSICAL Miguelito Champion, DO [address] [place] [address] Miguelito Champion, [address] [place] [address] Referral ID Status Reason Start Date Expiration Date Visits Re quested Visits Authorized [id number] Closed 02/12/2021 02/11/2022 1 1 Reason Onset [...] Referred By Contac t Referred To Contact [facility] Diagnoses Twin with single intrauterine , first trimester, fetus 1 (HCC) 13 weeks gestation of (HCC) Obesity affecting in second trimester, unspecified obesity type ([facility]) Procedures OBSTETRIC ULTRASOUND WHI US PREG UTERUS AFTER 1ST TRIMEST GESTATION Kristen Smith MD [address] [place] [address] Phone: tel: fax: [place] [phone] Referral ID Status Reason Start Date Expiration Date V isits Requested Visits Authorized [id number] Closed Auto-Generate d Referral 07/08/2024 07/08/2025 1 1 Reason Onset Date Comments Care 07/25/2024 Reason Comments US Specialty Diagnoses / Procedures Referred By Contac t Referred To Contact [facility] Diagnoses with uncertain dates in first trimester ([facility]) Procedures OBSTETRIC ULTRASOUND WHI US PREG UTERUS AFTER 1ST TRIMEST GESTATION Shiloh Westfall APRN.MIKE [address] [facility] [place] [address] Phone: tel: fax: [address] [phone] Referral ID Status Reason Start Date Expiration Date V isits Requested Visits Authorized [id number] Closed Auto-Generate d Referral 05/23/2024 05/23/2025 1 1 Reason Onset Date Comments Care 08/22/2024 Reason Onset Date Comments Care 10/15/2024 Specialty Diagnoses / Procedures Referred By Contac t Referred To Contact [facility] Diagnoses High-risk , multigravida of advanced maternal age, antepartum (HCC) 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 ([facility]) Class 2 obesity without serious comorbidity with body mass index (BMI) of 37.0 to 37.9 in adult, unspecified obesity type Procedures OBSTETRIC ULTRASOUND WHI US PREG UTERUS AFTER 1ST TRIMEST GESTATION Jossie Gonzales MD [address] [facility] [place] [address] Phone: tel: fax: [place] [phone] [facility] [address] Referral ID Status Reason Start Date Expiration Date V isits Requested Visits Authorized [id number] Closed Auto-Generate d Referral 08/25/2024 08/25/2025 1 1 Reason Onset Date Comments Refill Request 10/11/2024 Reason Onset Date Comments Care 10/29/2024 Reason Comments Breast Pump RX Care Teams (unrecognized sec tion and content) Beta Tester Relationship Specialty Start Date End Date Miguelito Champion, DO [address] [place] [address] PCP - General Family Practice 11/26/15 Beta Tester Relationship Specialty Start Date End Date Miguelito Champion DO [address] [place] [address] PCP - General Family Practice 11/26/15 Beta Tester Relationship Specialty Start Date End Date Miguelito Champion DO [address] [place] [address] PCP - General Family Practice 11/26/15 Beta Tester Relationship Specialty Start Date End Date Miguelito Champion DO [address] [place] [address] PCP - General Family Practice 11/26/15 Beta Tester Relationship Specialty Start Date End Date Miguelito Champion DO [address] [place] [address] PCP - General Family Practice 11/26/15 Beta Tester Relationship Specialty Start Date End Date Miguelito Champion DO [address] [place] [address] PCP - General Family Practice 11/26/15 Beta Tester Relationship Specialty Start Date End Date Miguelito Champion DO [address] [place] [address] PCP - General Family Medicine 11/26/15 Beta Tester Relationship Specialty Start Date End Date Miguelito Champion DO [address] [facility] [place] [address] PCP - General Family Medicine 11/26/15 Beta Tester Relationship Specialty Start Date End Date Miguelito Champion DO [address] [place] [address] PCP - General Family Medicine 11/26/15 Beta Tester Relationship Specialty Start Date End Date Miguelito Champion DO [address] [place] [address] PCP - General Family Medicine 11/26/15 Beta Tester Relationship Specialty Start Date End Date Miguelito Champion DO [address] [place] [address] PCP - General Family Medicine 11/26/15 Beta Tester Relationship Specialty Start Date End Date Miguelito Champion DO [address] [place] [address] PCP - General Family Medicine 11/26/15 Beta Tester Relationship Specialty Start Date End Date Miguelito Champion DO [address] [place] [address] PCP - General Family Medicine 11/26/15 Beta Tester Relationship Specialty Start Date End Date Miguelito Champion DO [address] [place] [address] PCP - General Family Medicine 11/26/15 Beta Tester Relationship Specialty Start Date End Date Miguelito Champion DO [address] [place] [address] PCP - General Family Medicine 11/26/15 Beta Tester Relationship Specialty Start Date End Date Miguelito Champion DO [address] [place] [address] PCP - General Family Medicine 11/26/15 Beta Tester Relationship Specialty Start Date End Date Miguelito Champion DO [address] [place] [address] PCP - General Family Medicine 11/26/15 Beta Tester Relationship Specialty Start Date End Date Miguelito Champion DO [address] [place] [address] PCP - General Family Medicine 11/26/15 Beta Tester Relationship Specialty Start Date End Date Miguelito Champion DO [address] [place] [address] PCP - General Family Medicine 11/26/15 Beta Tester Relationship Specialty Start Date End Date Miguelito Champion DO [address] [place] [address] PCP - General Family Medicine 11/26/15 Beta Tester Relationship Specialty Start Date End Date Miguelito Champion DO [address] [place] [address] PCP - General Family Medicine 11/26/15 Beta Tester Relationship Specialty Start Date End Date Miguelito Champion DO [address] [place] [address] PCP - General Family Medicine 11/26/15 Beta Tester Relationship Specialty Start Date End Date Miguelito Champion DO [address] [place] [address] PCP - General Family Medicine 11/26/15 Beta Tester Relationship Specialty Start Date End Date Miguelito Champion DO [address] [place] [address] PCP - General Family Medicine 11/26/15 Karen Azar, CANE LOADER.MOLD MAKING PLAST[employer] SHEETS SUPERVISOR [address] [place] [address] Combat Systems Engineer Family [facility] 01/20/24 ManjuHumberto, CANE LOADER.MOLD MAKING PLAST[employer] SHEETS SUPERVISOR [address] [place] [address] Combat Systems Engineer [facility] 01/20/24 Beta Tester Relationship Specialty Start Date End Date Miguelito Champion DO [address] [place] [address] PCP - General Family Medicine 11/26/15 Karen Azar, CANE LOADER.MOLD MAKING PLAST[employer] SHEETS SUPERVISOR [address] [place] [address] Combat Systems Engineer [facility] 01/20/24 ManjuHumberto, CANE LOADER.MOLD MAKING PLAST[employer] SHEETS SUPERVISOR [address] [place] [address] Combat Systems Engineer [facility] 01/20/24 Beta Tester Relationship Specialty Start Date End Date Miguelito Champion DO [address] [place] [address] PCP - General Family Medicine 11/26/15 Karen Azar, CANE LOADER.MOLD MAKING PLAST[employer] SHEETS SUPERVISOR [address] [place] [address] Combat Systems Engineer Family [facility] 01/20/24 Humberto Goldman, CANE LOADER.MOLD MAKING PLAST[employer] SHEETS SUPERVISOR [address] [place] [address] [facility] 01/20/24 Beta Tester Relationship Specialty Start Date End Date Miguelito Champion DO [address] [place] [place] [address] PCP - General Family Medicine 11/26/15 Karen Azar, CANE LOADER.MOLD MAKING PLAST[employer] SHEETS SUPERVISOR [address] [place] [place] [address] [facility] 01/20/24 Humberto Goldman, CANE LOADER.MOLD MAKING PLAST[employer] SHEETS SUPERVISOR [address] [facility] [place] [address] [facility] 01/20/24 Beta Tester Relationship Specialty Start Date End Date Miguelito Champion DO [address] [place] [place] [address] PCP - General Family Medicine 11/26/15 Karen Azar, CANE LOADER.MOLD MAKING PLAST[employer] SHEETS SUPERVISOR [address] [facility] [address] [facility] 01/20/24 Humberto Goldman, CANE LOADER.MOLD MAKING PLAST[employer] SHEETS SUPERVISOR [address] [facility] [place] [address] [facility] 01/20/24 Beta Tester Relationship Specialty Start Date End Date Miguelito Champion DO [address] [facility] [address] PCP - General Family Medicine 11/26/15 Karen Azar, CANE LOADER.MOLD MAKING PLAST[employer] SHEETS SUPERVISOR [address] [facility] [place] [address] [facility] 01/20/24 Humberto Goldman, CANE LOADER.MOLD MAKING PLAST[employer] SHEETS SUPERVISOR [address] [facility] [place] [address] Combat Systems Engineer [facility] 01/20/24 Beta Tester Relationship Specialty Start Date End Date Miguelito Champion DO [address] [facility] [place] [address] PCP - General Family Medicine 11/26/15 Humberto Goldman, CANE LOADER.MOLD MAKING PLAST[employer] SHEETS SUPERVISOR [address] [place] [address] [facility] 01/20/24 Beta Tester Relationship Specialty Start Date End Date Miguelito Champion DO [address] [place] [address] PCP - General Family Medicine 11/26/15 Humberto Goldman, CANE LOADER.MOLD MAKING PLAST[employer] SHEETS SUPERVISOR [address] [facility] [place] [address] [facility] 01/20/24 Beta Tester Relationship Specialty Start Date End Date Miguelito Champion DO [address] [place] [address] PCP - General Family Medicine 11/26/15 Humberto Goldman, CANE LOADER.MOLD MAKING PLAST[employer] SHEETS SUPERVISOR [address] [place] [address] [facility] 01/20/24 Beta Tester Relationship Specialty Start Date End Date Miguelito Champion DO [address] [place] [address] PCP - General Family Medicine 11/26/15 ManjuHumberto, CANE LOADER.MOLD MAKING PLAST[employer] SHEETS SUPERVISOR [address] [place] [address] Combat Systems Engineer Family [facility] 01/20/24 Beta Tester Relationship Specialty Start Date End Date Miguelito Champion DO [address] [place] [address] PCP - General Family Medicine 11/26/15 ManjuHumberto, CANE LOADER.MOLD MAKING PLAST[employer] SHEETS SUPERVISOR [address] [place] [address] Combat Systems Engineer Family [facility] 01/20/24 Beta Tester Relationship Specialty Start Date End Date Miguelito Champion DO [address] [place] [address] PCP - General Family Medicine 11/26/15 ManjuHumberto, CANE LOADER.MOLD MAKING PLAST[employer] SHEETS SUPERVISOR [address] [place] [address] Combat Systems Engineer Family [facility] 01/20/24 Beta Tester Relationship Specialty Start Date End Date Miguelito Champion DO [address] [place] [address] PCP - General Family Medicine 11/26/15 ManjuHumberto, CANE LOADER.MOLD MAKING PLAST[employer] SHEETS SUPERVISOR [address] [place] [address] Combat Systems Engineer Family Medicine 01/20/24 Beta Tester Relationship Specialty Start Date End Date Miguelito Champion DO [address] [place] [address] PCP - General Family Medicine 11/26/15 Humberto Goldman, CANE LOADER.MOLD MAKING PLAST[employer] SHEETS SUPERVISOR [address] [place] [address] Combat Systems Engineer Family [facility] 01/20/24 Beta Tester Relationship Specialty Start Date End Date Miguelito Champion DO [address] [place] [address] PCP - General Family Medicine 11/26/15 Humberto Goldman, CANE LOADER.MOLD MAKING PLAST[employer] SHEETS SUPERVISOR [address] [place] [address] Combat Systems Engineer Family Medicine 01/20/24 Beta Tester Relationship Specialty Start Date End Date Miguelito Champion DO [address] [place] [address] PCP - General Family Medicine 11/26/15 Humberto Goldman, CANE LOADER.MOLD MAKING PLAST[employer] SHEETS SUPERVISOR [address] [place] [address] Combat Systems Engineer Family Medicine 01/20/24 Kendal Oro, CANE LOADER.MOLD MAKING PLAST[employer] SHEETS SUPERVISOR [address] [place] [place] [address] Combat Systems Engineer Family [facility] 07/28/24 Beta Tester Relationship Specialty Start Date End Date Miguelito Champion DO [address] [place] [address] PCP - General Family Medicine 11/26/15 Humberto Goldman, CANE LOADER.MOLD MAKING PLAST[employer] SHEETS SUPERVISOR [address] [place] [address] Combat Systems Engineer Family Medicine 01/20/24 Kendal Oro, CANE LOADER.MOLD MAKING PLASTICS SHEETS SUPERVISOR [address] [place] [address] Combat Systems Engineer Family Medicine 07/28/24 Beta Tester Relationship Specialty Start Date End Date Miguelito Champion DO [address] [place] [address] PCP - General Family Medicine 11/26/15 Humberto Goldman, CANE LOADER.MOLD MAKING PLAST[employer] SHEETS SUPERVISOR [address] [place] [address] Combat Systems Engineer Family Medicine 01/20/24 Kendal Oro, CANE LOADER.MOLD MAKING PLAST[employer] SHEETS SUPERVISOR [address] [place] [address] Combat Systems Engineer Family Medicine 07/28/24 Beta Tester Relationship Specialty Start Date End Date Miguelito Champion DO [address] [place] [address] PCP - General Family Medicine 11/26/15 Humberto Goldman, CANE LOADER.MOLD MAKING PLAST[employer] SHEETS SUPERVISOR [address] [place] [address] Combat Systems Engineer Family Medicine 01/20/24 Kendal Oro, CANE LOADER.MOLD MAKING PLASTICS SHEETS SUPERVISOR [address] [place] [address] Combat Systems Engineer Family Medicine 07/28/24 Beta Tester Relationship Specialty Start Date End Date Miguelito Champion DO [address] [place] [address] PCP - General Family Medicine 11/26/15 Humberto Goldman, CANE LOADER.MOLD MAKING PLAST[employer] SHEETS SUPERVISOR [address] [place] [address] Combat Systems Engineer Family Medicine 01/20/24 Kendal Oro, CANE LOADER.MOLD MAKING PLAST[employer] SHEETS SUPERVISOR [address] [place] [address] Combat Systems Engineer Family Medicine 07/28/24 Beta Tester Relationship Specialty Start Date End Date Miguelito Champion DO [address] [place] [address] PCP - General Family Medicine 11/26/15 Humberto Goldman, CANE LOADER.MOLD MAKING PLAST[employer] SHEETS SUPERVISOR [address] [place] [address] Combat Systems Engineer Family Medicine 01/20/24 Kendal Oro, CANE LOADER.MOLD MAKING PLASTICS SHEETS SUPERVISOR [address] [place] [address] Combat Systems Engineer Family Medicine 07/28/24 Beta Tester Relationship Specialty Start Date End Date Miguelito Champion DO [address] [place] [address] PCP - General Family Medicine 11/26/15 Humberto Goldman, CANE LOADER.MOLD MAKING PLAST[employer] SHEETS SUPERVISOR [address] [place] [address] Combat Systems Engineer Family Medicine 01/20/24 Kendal Oro, CANE LOADER.MOLD MAKING PLASTICS SHEETS SUPERVISOR [address] [place] [address] Combat Systems Engineer Family Medicine 07/28/24 Beta Tester Relationship Specialty Start Date End Date Miguelito Champion DO [address] [place], [place] [address] PCP - General Family Medicine 11/26/15 Humberto Goldman, CANE LOADER.MOLD MAKING PLAST[employer] SHEETS SUPERVISOR [address] [place], [place] [address] [facility] 01/20/24 Kendal Oro, CANE LOADER.MOLD MAKING PLASTICS SHEETS SUPERVISOR [address] [place], [place] [address] [facility] 07/28/24 Beta Tester Relationship Specialty Start Date End Date Miguelito Champion DO [address] [place] [address] PCP - General Family Medicine 11/26/15 Humberto Goldman, CANE LOADER.MOLD MAKING PLASTICS SHEETS SUPERVISOR [address] [place] [address] [facility] 01/20/24 Kendal Oro, CANE LOADER.MOLD MAKING PLASTICS SHEETS SUPERVISOR [address] [place], [place] [address] [facility] 07/28/24 INFORMATION SOURCE (unrecogn ized section and content) DATE CREATED AUTHOR 12/25/2024 [facility] DATE CREATED AUTHOR AUTHOR'S ORGANIZ ATION 12/25/2024 [facility] FOR RECORDS PERTAINING TO PATIENTS WHO ARE [...] BE BASED ON THE PRIMARY CLINICAL RECORDS. [facility] [employer] [facility]. provides no warranty or guarantee of the accuracy or completeness of information in this document.
[2024-12-31 22:44] VITALS: BMI 40.4
[2025-01-01] VITALS (28 sets, daily range): BP systolic 109–141; BP diastolic 56–76; PULSE 84–116; RESP 16–17; TEMP 36.2–37.4; O2SAT 96–98
--- OUTSIDE RECORDS SUMMARY | 2025-01-01 05:20 | XMS RPT_ITS | CCD ---
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 Name Role Phone Miguelito Champion DO Primary Care Provider Miguelito Champion DO Primary Care Provider Azar EXPEDITER.INSTRUMENT LENS GRINDERKaren Unavailable Manju EXPEDITER.INSTRUMENT LENS GRINDERHumberto Unavailable Shorty EXPEDITER.INSTRUMENT LENS GRINDERKendal Unavailable Denae Renteria Referring Unavailable Champion, Miguelito [...] Care Unavailable KRISTEN SMITH Attending Unavailable CHAMPION, MGIUELITO L Primary Care Unavailable CHAMPION, MIGUELITO L [...] Latex (1 source) Latex Substance Allergy 9 [facility] (20 sources) Latex; Translations: [LATEX] Propensity to adverse reactions 9 [facility] Work Phone: (20 sources) Bees; Translations: [BEES] Propensity to adverse reactions 9 [facility] Work Phone: (1 source) Latex Drug allergy (disorder) 5 [facility] (1 source) venom-honey bee Drug allergy (disorder) 5 [facility] Medications Current Medications Medication Drug Class(es) [...] Comment on above: Take [address] [facility] three times daily for 7 days. cetirizine [...] capsules by mouth once daily. Active thyroid (snf) 120 mg oral tablet (20 sources) Start: 10-16-2024 thyroid (CREDIT OPERATIONS PROCESSOR THYROID) 120 mg tablet Take 1 tablet PO 3 days a week and 2 tablets PO 4 days a week 90 tablet 3 10/16/2024 Active Start: 08-23-2024 End: 10-11-2024 thyroid (CREDIT OPERATIONS PROCESSOR THYROID) 120 mg tablet Take 1 tablet PO 3 days a week and 2 tablets PO 4 days a week 08/23/2024 10/11/2024 Discontinued Start: 07-15-2024 End: 08-23-2024 thyroid (CREDIT OPERATIONS PROCESSOR THYROID) 120 mg tablet Take 1 tablet PO 4 days a week and 2 tablets PO 3 days a week 07/15/2024 08/23/2024 Discontinued Start: 05-26-2024 End: 07-15-2024 thyroid (CREDIT OPERATIONS PROCESSOR THYROID) 120 mg tablet Take 1 tablet PO 5 days a week and 2 tablets PO 2 days a week 140 tablet 3 05/26/2024 07/15/2024 Discontinued Start: 04-02-2023 End: 05-26-2024 take 2 tablets by mouth once daily CREDIT OPERATIONS PROCESSOR THYROID 60 mg tablet Indications: Acquired hypothyroidism TAKE 2 TABLETS BY MOUTH EVERY DAY 180 tablet 3 04/14/2024 05/26/2024 Discontinued Start: 09-25-2022 End: 03-31-2023 take 2 tablets by mouth once daily CREDIT OPERATIONS PROCESSOR THYROID 60 mg tablet Indications: Acquired hypothyroidism TAKE 2 TABLETS BY MOUTH EVERY DAY 60 tablet 3 10/13/2022 03/31/2023 Discontinued Start: 07-05-2022 End: 09-25-2022 CREDIT OPERATIONS PROCESSOR THYROID 60 mg tablet Silvia cations: Acquired hypothyroidism Take 1 tablet 2 days a week and 2 tablets 5 days a week 144 tablet 3 07/05/2022 09/25/2022 Discontinued Start: 07-08-2021 End: 07-05-2022 CREDIT OPERATIONS PROCESSOR THYROID 60 mg tablet Silvia cations: Acquired hypothyroidism Take 1 tablet 4 days a week and 2 tablets 3 days a week 120 tablet 2 12/09/2021 07/05/2022 Discontinued Start: 05-04-2022 CREDIT OPERATIONS PROCESSOR THYROID 60 mg Indications: Acquired hypothyroidism Take 1 tablet 5 days a week and 2 tablets 2 days a week 108 tablet 1 06/15/2021 Active Start: 05-23-2021 End: 06-13-2021 CREDIT OPERATIONS PROCESSOR THYROID 60 mg Indications : Acquired hypothyroidism Take 1 tablet 5 days a week and 2 tablets 2 days a week 108 tablet 1 05/23/2021 06/13/2021 Discontinued Start: 05-18-2021 End: 05-21-2021 CREDIT OPERATIONS PROCESSOR THYROID 60 mg Indications : Acquired hypothyroidism Take 1 tablet 5 days a week and 2 tablets 2 days a week 34 tablet 0 05/18/2021 05/21/2021 Discontinued Start: 05-02-2021 End: 05-18-2021 CREDIT OPERATIONS PROCESSOR THYROID 60 mg Indications : Acquired hypothyroidism Take 1 tablet 1 days a week and 2 tablets 6 days a week 28 tablet 0 05/04/2021 05/18/2021 Discontinued Start: 01-14-2020 End: 04-29-2021 CREDIT OPERATIONS PROCESSOR THYROID 60 mg Indications : Acquired hypothyroidism [...] tablets daily . TAKE 2 TABLETS BY [facility] EVERY DAY Completed/Discontinued Medications Medication [...] Take 100 mg by mouth once daily. [id number] 0.3 ml EPINEPHrine 1 mg/ml auto-injector (20 [...] 4.5 mg by mouth daily at bedtime. Tgqgdlge-Vy-Zgo-Fe-F A ( VITAMIN) tab (9 sources) take 1 tablet by mouth once Ynurewmt-Ik-Ctv-Fe -FA ( VITAMIN) tab Take 1 tablet by mouth. 0 Active Comment on above: Take 1 tablet by yadira th. Vpkmflrg-Fv-Xmt-Fe-F A tab (4 sources) End: 08-04-2022 take 1 tablet by mouth once Innrkpuo-Dl-Hly-Fe -FA tab Take 1 tablet by mouth. 08/04/2022 Discontinued (Course of therapy completed) End: 08-04-2022 take 1 tablet by mouth once Ufrucqtb-Ug-Ajx-Fe-FA tab Take 1 tablet by mouth. 0 08/04/2022 Discontinued (Course of therapy completed) take 1 tablet by yadira th once Mbyrkjkq-No-Yqi-Fe-FA tab Take 1 tablet by mouth. 0 [...] [Supervision of high risk in second trimester ([facility])] Onset: 07-25-2024 Episodic Other complications of (1 source) Supervision of elderly multigravida, second trimester; Translations: [AMA (advanced maternal age) multigravida 35+, second trimester ([facility])] Onset: 07-25-2024 Episodic Other complications of (1 [...] Range Facil ity CNPRaysa 12-16-2024 CNPN Telephone ([facility]) TEJALNENA ARGUELLO ([id number]) 1990 F Date Time Provider Department 12/16/24 MIGUELITO CHAMPIONWS During your visit today, we recorded the following information about you: Miguelito Champion DO 12/16/2024 11:20 AM Signed Pleas inform patient that her free t4 is still low but slightly improved, TSH is improving. Make sure she is taking her CREDIT OPERATIONS PROCESSOR thyroid correctly. I know she is getting closer to delivery date. Can try to take 2 extra tablets a week such as extra on Mon and Wed each week of her CREDIT OPERATIONS PROCESSOR thyroid DO Natasha Skelton Susan LPN 12/16/2024 11:24 AM Signed Pt. informed via My chart Allergies As of Date: 12/16/2024 Noted Allergy Reaction BEES 07/07/2008 7 - Swelling LATEX 07/07/2008 4 - Hives Date Reviewed: 12/11/2024 Reviewed by: Tasha Carias MA - Fully Assessed Prescriptions as of 12/16/2024 - thyroid (CREDIT OPERATIONS PROCESSOR THYROID) 120 mg tablet Take 1 tablet [...] by LISA LEÓN LPN on 12/16/24 Normal [facility] ROUTINE, GROUP B ST REPTOCOCCUS BY PCRon 12-11-2024 ROUTINE, GROUP B STREPTOCOCCUS BY PCR Not detected Normal [facility] Comment on above: Performed By: #### 7 3752-8, 5195-3, 78950-4 #### [facility] CLIA [id number] [address] [place] [address] [place] T4 Free SerPl-mCncon 025 Free T4 [Mass/Vol] 0.8 ng/dL Low 0.9-1.7 [facility] Comment on above: Order Comment: Speci men Type: BLOOD SPECIMEN Ordering Facility: [facility] Address: [address] [place] [address] Performed By: #### 3 024-7, 3053-6, 3016-3 #### [facility] CLIA [id number] [address] [place] [address] [place] TSH SerPl-aCncon 12-11-2024 TSH Qn 0.335 m[IU]/L Normal 0.270-4.200 [facility] Comment on above: Order Comment: Selam walsh Type: BLOOD SPECIMEN Ordering Facility: [facility] Address: [address] [place] [address] Result Comment: If t he patient is , TSH reference range varies by gestational period: First Trimester (weeks 9-12): 0.180-2.990 mIU/L Second Trimester: 0.110-3.980 mIU/L Third Trimester: 0.480-4.710 mIU/L Homer Caputo et al. A Practical Approach for the Verifications and Determination of Site- and Trimester-Specific Reference Intervals for Thyroid Function tests in . Thyroid, 2019:29:3:412-420. Moose E, et al. 2017 Guidelines of the [place] Thyroid Association for the Diagnosis and Management of Thyroid Disease during and the . Thyroid, 2017:27:3:315-389. Performed By: #### 3 024-7, 3053-6, 3016-3 #### [facility] CLIA [id number] [address] [place] [address] [place] CNPNon 11-13-2024 CNPN Telephone ([facility]) NENA LEIVA ([id number]) 1990 F Date Time Provider Department 11/13/24 MIGUELITO CHAMPION [facility] During your visit today, we recorded the [...] below requesting Orders replaced for labs DO Ralhp Skelton Amanda, RN 11/17/2024 6:37 PM Signed Called and left a voicemail for the Patient to call back and ask for a nurse to receive the providers message. GILMAR Monteiro Kathryn, MA 11/18/2024 11:06 AM Signed Notified of below via [employer]. Glo Smith MA Allergies As of Date: 11/13/2024 Noted Allergy Reaction BEES 07/07/2008 7 - Swelling LATEX 07/07/2008 4 - Hives Date Reviewed: 11/12/2024 Reviewed by: Freya Velazquez MD - Fully Assessed Reason for Visit: Patient Question [1477] Primary Visit Diagnosis:Multinodular goiter [E04.2] Order(s):THYROID STIMULATING HORMONE [SQTSH] Order #: [id number] FUTURE T4 FREE/FREE THYROXINE [SQFT4] Order #: [id number] FUTURE Prescriptions as of 11/18/2024 - thyroid (CREDIT OPERATIONS PROCESSOR THYROID) 120 mg tablet Take 1 tablet [...] Status:Closed by GLO SMITH on 11/18/24 Normal [facility] T4 Free SerPl-chavo 025 Free T4 [Mass/Vol] 0.7 ng/dL Low 0.9-1.7 [facility] Comment on above: Order Comment: Speci men Type: BLOOD SPECIMEN Ordering Facility: [facility] Address: [address] [place] [address] Performed By: #### 7 3752-8, 5195-3, 95253-7 #### [facility] CLIA [id number] [address] [place] [address] [place] [address] [place] TSH SerPl-aCncon 11-12-2024 TSH Qn 1.580 m[IU]/L Normal 0.270-4.200 [facility] Comment on above: Order Comment: Speci men Type: BLOOD SPECIMEN Ordering Facility: [facility] Address: [address] [place] [address] Result Comment: If t he patient is , TSH reference range varies by gestational period: First Trimester (weeks 9-12): 0.180-2.990 mIU/L Second Trimester: 0.110-3.980 mIU/L Third Trimester: 0.480-4.710 mIU/L Homer Caputo et al. A Practical Approach for the Verifications and Determination of Site- and Trimester-Specific Reference Intervals for Thyroid Function tests in . Thyroid, 2019:29:3:412-420. Moose Lopez, et al. 2017 Guidelines of the [place] Thyroid Association for the Diagnosis and Management of Thyroid Disease during and the . Thyroid, 2017:27:3:315-389. Performed By: #### 7 3752-8, 5195-3, 62089-7 #### [facility] CLIA [id number] [address] [place] [address] [place] [facility] CNPRaysa 10-29-2024 CNPN Telephone (OBGYWM) NENA LEIVA ([id number]) 1990 F Date Time Provider Department 10/29/24 LIANNA CAPONE OBGYWM During your visit today, we recorded the following information about you: Kristen Chang RN 10/29/2024 10:06 AM Signed Received breast pump RX from [employer]. To DM to sign. GILMAR Cottrell Lindsey, RN 10/29/2024 12:33 PM Signed Order signed and faxed. Juliana Huston RN Allergies As of Date: 10/29/2024 Noted Allergy Reaction BEES 07/07/2008 7 - Swelling LATEX 07/07/2008 4 - Hives Date Reviewed: 10/29/2024 Reviewed by: Kristen Smith MD - Fully Assessed Reason for Visit: Breast Pump RX [Other] Prescriptions as of 10/29/2024 - thyroid (CREDIT OPERATIONS PROCESSOR THYROID) 120 mg tablet Take 1 tablet [...] Encounter Status:Closed by JULIANA HUSTON on 10/29/24 [facility]20[facility] LE[facility] ([id number]) 1990 F Date Time Provider Department 10/27/24 MIGUELITO CHAMPION [facility] During your visit today, we [...] tablet 2 days a week for her CREDIT OPERATIONS PROCESSOR thyroid 120 mg Recheck labs 1 month [...] Date Reviewed: 10/15/2024 Reviewed by: Lauren Madera APRN.INSTRUMENT LENS GRINDER - Fully Assessed Prescriptions as of 10/30/2024 - thyroid (CREDIT OPERATIONS PROCESSOR THYROID) 120 mg tablet Take 1 tablet [...] Encounter Status:Closed by PIPER MISTRY on 10/30/24 [facility] Vania 10-24-2024 [facility]N [facility] NENA LEIVA ([id number]) 1990 F Date Time Provider Department 10/24/24 MIGUELITO CHAMPION [facility] During your visit today, we recorded the [...] tablet 2 days a week for her CREDIT OPERATIONS PROCESSOR thyroid 120 mg Recheck labs 1 month DO Natasha Skelton Susan LPN 10/24/2024 5:09 PM Signed Pt. informed via my chart. Allergies As of Date: 10/24/2024 Noted Allergy Reaction BEES 07/07/2008 7 - Swelling LATEX 07/07/2008 4 - Hives Date Reviewed: 10/15/2024 Reviewed by: Lauren Madera APRN.[facility] - Fully Assessed Primary Visit Diagnosis:Acquired hypothyroidism [E03.9] Order(s):THYROID STIMULATING HORMONE [SQTSH] Order #: [id number] FUTURE T4 FREE/FREE THYROXINE [SQFT4] Order #: [id number] FUTURE Prescriptions as of 10/24/2024 - thyroid (CREDIT OPERATIONS PROCESSOR THYROID) 120 mg tablet Take 1 tablet [...] by LISA LEÓN LPN on 10/24/24 Normal [facility] Examination level ultrasound on 10-16-2024 [facility] CBC W Auto Differential pane l (Bld)on 10-15-2024 Basophils (Bld) [#/Vol] 0.05 10*3/uL Normal <0.11 [facility] Comment on above: Order Comment: Speci men Type: BLOOD SPECIMEN Ordering Facility: [facility] Address: [address] [place] [address] Performed By: #### 7 3752-8, 5195-3, 78546-7 #### [facility] CLIA [id number] [address] [place] [address] [place] Basophils/100 WBC (Bld) 0.4 % Normal [facility] Comment on above: Order Comment: Speci men Type: BLOOD SPECIMEN Ordering Facility: [facility] Address: [address] [place] [address] Performed By: #### 7 3752-8, 5195-3, 34102-7 #### [facility] CLIA [id number] [address] [place] [address] [place] Differential cell count method Nom (Bld) Auto Normal [facility] Comment on above: Order Comment: Speci men Type: BLOOD SPECIMEN Ordering Facility: [facility] Address: [address] [place] [address] Performed By: #### 7 3752-8, 5195-3, 19164-5 #### [facility] CLIA [id number] [address] [place] [address] [place] Eosinophils (Bld) [#/Vol] 0.16 10*3/uL Normal <0.46 [facility] Comment on above: Order Comment: Speci men Type: BLOOD SPECIMEN Ordering Facility: [facility] Address: [address] [place] [address] Performed By: #### 7 3752-8, 5195-3, 58874-3 #### [facility] CLIA [id number] [address] [place] [address] [place] Eosinophils/100 WBC (Bld) 1.2 % Normal [facility] Comment on above: Order Comment: Speci men Type: BLOOD SPECIMEN Ordering Facility: [facility] Address: [address] [place] [address] Performed By: #### 7 3752-8, 5195-3, 87952-8 #### [facility] CLIA [id number] [address] [place] [address] [place] Erythrocyte distribution width (RBC) [Ratio] 13.1 % Normal 11.5-15.0 [facility] Comment on above: Order Comment: Speci men Type: BLOOD SPECIMEN Ordering Facility: [facility] Address: [address] [place] [address] Performed By: #### 7 3752-8, 5195-3, 41411-6 #### [facility] CLIA [id number] [address] [place] [address] [place] Hematocrit (Bld) [Volume fraction] 36.1 % Normal 36.0-46.0 [facility] Comment on above: Order Comment: Speci men Type: BLOOD SPECIMEN Ordering Facility: [facility] Address: [address] [place] [address] Performed By: #### 7 3752-8, 5195-3, 79182-7 #### [facility] CLIA [id number] [address] [place] [address] [place] Hemoglobin (Bld) [Mass/Vol] 12.5 g/dL Normal 11.5-15.5 [facility] Comment on above: Order Comment: Speci men Type: BLOOD SPECIMEN Ordering Facility: [facility] Address: [address] [place] [address] Performed By: #### 7 3752-8, 5195-3, 65684-6 #### [facility] CLIA [id number] [address] [place] [address] [place] Immature granulocytes (Bld) [#/Vol] 0.08 10*3/uL Normal <0.10 [facility] Comment on above: Order Comment: Speci men Type: BLOOD SPECIMEN Ordering Facility: [facility] Address: [address] [place] [address] Performed By: #### 7 3752-8, 5195-3, 23216-4 #### [facility] CLIA [id number] [address] [place] [address] [place] Immature granulocytes/100 WBC (Bld) 0.6 % Normal [facility] Comment on above: Order Comment: Speci men Type: BLOOD SPECIMEN Ordering Facility: [facility] Address: [address] [place] [address] Performed By: #### 7 3752-8, 5195-3, 41863-3 #### [facility] CLIA [id number] [address] [place] [address] [place] Lymphocytes (Bld) [#/Vol] 2.18 10*3/uL Normal 1.00-4.00 [facility] Comment on above: Order Comment: Speci men Type: BLOOD SPECIMEN Ordering Facility: [facility] Address: [address] [place] [address] Performed By: #### 7 3752-8, 5-3, 48411-1 #### [facility] CLIA [id number] [address] [place] [address] [place] Lymphocytes/100 WBC (Bld) 16.3 % Normal [facility] Comment on above: Order Comment: Speci men Type: BLOOD SPECIMEN Ordering Facility: [facility] Address: [address] [place] [address] Performed By: #### 7 3752-8, 5194-3, 23788-6 #### [facility] CLIA [id number] [address] [place] [address] [place] MCH (RBC) [Entitic mass] 28.4 pg Normal 26.0-34.0 [facility] Comment on above: Order Comment: Speci men Type: BLOOD SPECIMEN Ordering Facility: [facility] Address: [address] [place] [address] Performed By: #### 7 3752-8, 5194-3, 85227-5 #### [facility] CLIA [id number] [address] [place] [address] [place] MCHC (RBC) [Mass/Vol] 34.6 g/dL Normal 30.5-36.0 [facility] Comment on above: Order Comment: Speci men Type: BLOOD SPECIMEN Ordering Facility: [facility] Address: [address] [place] [address] Performed By: #### 7 3752-8, 5194-3, 42359-3 #### [facility] CLIA [id number] [address] [place] [address] [place] MCV (RBC) [Entitic vol] 82.0 fL Normal 80.0-100.0 [facility] Comment on above: Order Comment: Speci men Type: BLOOD SPECIMEN Ordering Facility: [facility] Address: [address] [place] [address] Performed By: #### 7 3752-8, 5194-3, 56714-6 #### [facility] CLIA [id number] [address] [place] [address] [place] Monocytes (Bld) [#/Vol] 0.70 10*3/uL Normal <0.87 [facility] Comment on above: Order Comment: Speci men Type: BLOOD SPECIMEN Ordering Facility: [facility] Address: [address] [place] [address] Performed By: #### 7 3752-8, 5195-3, 93149-1 #### [facility] CLIA [id number] [address] [place] [address] [place] Monocytes/100 WBC (Bld) 5.2 % Normal [facility] Comment on above: Order Comment: Speci men Type: BLOOD SPECIMEN Ordering Facility: [facility] Address: [address] [place] [address] Performed By: #### 7 3752-8, 3, 55281-0 #### [facility] CLIA [id number] [address] [place] [address] [place] Neutrophils (Bld) [#/Vol] 10.21 10*3/uL High 1.45-7.50 [facility] Comment on above: Order Comment: Speci men Type: BLOOD SPECIMEN Ordering Facility: [facility] Address: [address] [place] [address] Performed By: #### 7 3752-8, 3, 87239-6 #### [facility] CLIA [id number] [address] [place] [address] [place] Neutrophils/100 WBC (Bld) 76.3 % Normal [facility] Comment on above: Order Comment: Speci men Type: BLOOD SPECIMEN Ordering Facility: [facility] Address: [address] [place] [address] Performed By: #### 7 3752-8, 5195-3, 85474-4 #### [facility] CLIA [id number] [address] [place] [address] [place] Nucleated RBC (Bld) [#/Vol] 10*3/uL Normal <0.01 [facility] Comment on above: Order Comment: Speci men Type: BLOOD SPECIMEN Ordering Facility: [facility] Address: [address] [place] [address] Performed By: #### 7 3752-8, 5195-3, 39393-1 #### [facility] CLIA [id number] [address] [place] [address] [place] Nucleated RBC/100 WBC (Bld) [Ratio] 0.0 /100 WBC Normal [facility] Comment on above: Order Comment: Speci men Type: BLOOD SPECIMEN Ordering Facility: [facility] Address: [address] [place] [address] Performed By: #### 7 3752-8, 5195-3, 96929-2 #### [facility] CLIA [id number] [address] [place] [address] [place] Platelet mean volume (Bld) [Entitic vol] 9.4 fL Normal 9.0-12.7 [facility] Comment on above: Order Comment: Speci men Type: BLOOD SPECIMEN Ordering Facility: [facility] Address: [address] [place] [address] Performed By: #### 7 3752-8, 5195-3, 78646-1 #### [facility] CLIA [id number] [address] [place] [address] [place] Platelets (Bld) [#/Vol] 213 10*3/uL Normal 150-400 [facility] Comment on above: Order Comment: Speci men Type: BLOOD SPECIMEN Ordering Facility: [facility] Address: [address] [place] [address] Performed By: #### 7 3752-8, 5195-3, 44027-0 #### [facility] CLIA [id number] [address] [place] [address] [place] RBC (Bld) [#/Vol] 4.40 10*6/uL Normal 3.90-5.20 [facility] Comment on above: Order Comment: Speci men Type: BLOOD SPECIMEN Ordering Facility: [facility] Address: [address] [place] [address] Performed By: #### 7 3752-8, 5195-3, 29883-4 #### [facility] CLIA [id number] [address] [place] [address] [place] WBC (Bld) [#/Vol] 13.38 10*3/uL High 3.70-11.00 [facility] Comment on above: Order Comment: Speci men Type: BLOOD SPECIMEN Ordering Facility: [facility] Address: [address] [place] [address] Performed By: #### 7 3752-8, 5195-3, 05756-2 #### [facility] CLIA [id number] [address] [place] [address] [facility] [place] Examination level ultrasound on 10-15-2024 Radiology Study observation (narrative) [facility] GESTATIONAL GLUCOSE SCREEN, 1-HOUR, 50 GRAM, NON-FASTINGon 10-15-2024 Glucose [Mass/Vol] 129 mg/dL Normal 74-134 [facility] Comment on above: Order Comment: Speci men Type: BLOOD SPECIMEN Ordering Facility: [facility] Address: [address] [place] [address] Result Comment: [facility] Congress of Obstetricians and Gynecologists (Lucas/Harjit) guidelines state a gestational diabetes mellitus positive screen is made, in women not previously diagnosed with overt diabetes, when the 1 hr plasma glucose level is equal to or above 140 mg/dL. The [facility] Auto Claim Representative and [facility] recommends a 135 mg/dL cutoff. Performed By: #### 3 024-7, 3053-6, 3016-3 #### [facility] CLIA [id number] [address] [id number] [address] [place] Reagin and Treponema pallidu m IgG and IgM [Interp]on 10-15-2024 T. pallidum IgG+IgM IA Ql (S) Non-Reactive Normal Nonreactive [facility] Comment on above: Order Comment: Speci men Type: BLOOD SPECIMEN Ordering Facility: [facility] Address: [address] [place] [address] Performed By: #### 7 3752-8, 5195-3, 86402-0 #### [facility] CLIA [id number] [address] [place] [address] [place] Reagin+T pallidum IgG+IgM Se rPl-Impon 10-15-2024 Reagin and Treponema pallidum IgG and IgM [Interp] Cannot exclude recent Treponemal infection if specimen collected within 7-10 days after appearance of suspect lesions or 2-3 weeks after an exposure. Clinical correlation is required. Normal [facility] Comment on above: Order Comment: Speci men Type: BLOOD SPECIMEN Ordering Facility: [facility] Address: [address] [place] [address] Performed By: #### 7 3752-8, 5195-3, 47450-1 #### [facility] CLIA [id number] [address] [place] [address] [place] T4 Free SerPl-mCncon 025 Free T4 [Mass/Vol] 0.7 ng/dL Low 0.9-1.7 [facility] Comment on above: Order Comment: Speci men Type: BLOOD SPECIMEN Ordering Facility: [facility] Address: [address] [place] [address] Performed By: #### 3 024-7, 3053-6, 3016-3 #### [facility] CLIA [id number] [address] [place] [address] [place] TSH W/REFLEX FT4on 5 TSH Qn 0.663 m[IU]/L Normal 0.270-4.200 [facility] Comment on above: Order Comment: Speci men Type: BLOOD SPECIMEN Ordering Facility: [facility] Address: [address] [place] [address] Result Comment: If t he patient is , TSH reference range varies by gestational period: First Trimester (weeks 9-12): 0.180-2.990 mIU/L Second Trimester: 0.110-3.980 mIU/L Third Trimester: 0.480-4.710 mIU/L Homer L, et al. A Practical Approach for the Verifications and Determination of Site- and Trimester-Specific Reference Intervals for Thyroid Function tests in . Thyroid, 2019:29:3:412-420. Moose Lopez, et al. 2017 Guidelines of the [place] Thyroid Association for the Diagnosis and Management [...] Lopez et al. 2017 Guidelines of the [place] Thyroid Association for the Diagnosis and Management of Thyroid Disease during and the . Thyroid, 2017:27:3:315-389. Performed By: #### 3 024-7, 3053-6, 3016-3 #### [facility] CLIA [id number] [address] [place], [place] [address] [address] [place] Result Comment: If [...] Lopez et al. 2017 Guidelines of the [place] Thyroid Association for the Diagnosis and Management of Thyroid Disease during and the . Thyroid, 2017:27:3:315-389. TYPE + SCREEN PRENATALon ABO A Normal [facility] Comment on above: Order Comment: Speci men Type: BLOOD SPECIMEN Ordering Facility: [facility] Address: [address] [place] [address] Performed By: #### 7 3752-8, 5195-3, 13033-2 #### [facility] CLIA [id number] [address] [place] [address] [place] Rh Nom (Bld) Negative Normal [facility] Comment on above: Order Comment: Speci men Type: BLOOD SPECIMEN Ordering Facility: [facility] Address: [address] [place] [address] Performed By: #### 7 3752-8, 5195-3, 25279-6 #### [facility] CLIA [id number] [address] [place] [address] [place] TYPE AND SCREEN EXPIRATION 10/18/2024 23:59 Normal [facility] Comment on above: Order Comment: Speci men Type: BLOOD SPECIMEN Ordering Facility: [facility] Address: [address] [place] [address] Performed By: #### 7 3752-8, 5195-3, 80919-4 #### [facility] CLIA [id number] [address] [place] [address] [place] T4 Free SerPl-mCncon 025 Free T4 [Mass/Vol] 0.7 ng/dL Low 0.9-1.7 [facility] Comment on above: Order Comment: Speci men Type: BLOOD SPECIMEN Ordering Facility: [facility] Address: [address] [place] [address] Performed By: #### 7 3752-8, 5195-3, 63736-9 #### [facility] CLIA [id number] [address] [place] [address] [place] TSH SerPl-aCncon 09-19-2024 TSH Qn 1.370 m[IU]/L Normal 0.270-4.200 [facility] Comment on above: Order Comment: Speci men Type: BLOOD SPECIMEN Ordering Facility: [facility] Address: [address] [place] [address] Result Comment: If t he patient is , TSH reference range varies by gestational period: First Trimester (weeks 9-12): 0.180-2.990 mIU/L Second Trimester: 0.110-3.980 mIU/L Third Trimester: 0.480-4.710 mIU/L Homer Caputo et al. A Practical Approach for the Verifications and Determination of Site- and Trimester-Specific Reference Intervals for Thyroid Function tests in . Thyroid, 2019:29:3:412-420. Moose Lopez, et al. 2017 Guidelines of the [place] Thyroid Association for the Diagnosis and Management of Thyroid Disease during and the . Thyroid, 2017:27:3:315-389. Performed By: #### 7 3752-8, 5195-3, 34287-5 #### [facility] CLIA [id number] [address] [place] [address] [place] Examination level ultrasound [...] 0 oz EFW by: Hadlock (HC-AC-FL) [employer] Design Engineer 5.9 mm CM 3.7 mm 11% Nicolaides [...] normal LVOT view: normal 3-vessel view: normal 3-yygywl-xkdqica view: normal Heart / Thorax Situs: situs [...] Read By: Jossie Gonzales M.D. MATERNAL MEDICINE [facility] CNOVon 08-23-2024 CNOV Office Visit (FAMPWS ) NENA LEIVA ([id number]) 1990 F Date Time Provider Department 08/23/24 9:00 [facility] today, we recorded [...] 3 days and managed by OBGYN in [place]. She has had 3 other successful vaginal births-1 davies, 1 set of twins. She is taking her vitamins at this time. Hypothyroidism, she is taking 120 mg of CREDIT OPERATIONS PROCESSOR thyroid 4 days a week and 240 [...] E, et al. 2017 Guidelines of the [place] Thyroid Association for the Diagnosis and Management [...] daily. cetirizine (ZYRTEC) 10 mg tablet thyroid (CREDIT OPERATIONS PROCESSOR THYROID) 120 mg tablet Take 1 tablet [...] 2. Scre (more content not included)... Normal [facility] Examination level ultrasound on 08-22-2024 Radiology Study observation (narrative) [facility] Free T4 [Mass/Vol]on 025 Interpretation and review of laboratory results Abnormal [facility] No Panel Informationon 08-22 [facility] T4 FREE/FREE THYROXINEon Free T4 [Mass/Vol] 0.7 ng/dL Low 0.9 - 1.7 ng/dL [facility] T4 Free SerPl-mCncon 025 Free T4 [Mass/Vol] 0.7 ng/dL Low 0.9-1.7 [facility] Comment on above: Order Comment: Speci men Type: BLOOD SPECIMEN Ordering Facility: [facility] Address: [address] [place] [address] Performed By: #### 3 024-7, 3053-6, 3016-3 #### [facility] CLIA [id number] [address] [place], [place] [address] [place] [address] [place] THYROID STIMULATING HORMONEo n 08-22-2024 TSH Qn 2.58 m[IU]/L [facility] Comment on above: If the patient [...] Lopez, et al. 2017 Guidelines of the [place] Thyroid Association for the Diagnosis and Management of Thyroid Disease during and the . Thyroid, 2017:27:3:315-389. TSH Qnon 08-22-2024 Interpretation and review of laboratory results Normal [facility] TSH SerPl-aCncon 08-22-2024 TSH Qn 2.580 m[IU]/L Normal 0.270-4.200 [facility] Comment on above: Order Comment: Speci men Type: BLOOD SPECIMEN Ordering Facility: [facility] Address: [address] [place] [address] Result Comment: If t he patient is , TSH reference range varies by gestational period: First Trimester (weeks 9-12): 0.180-2.990 mIU/L Second Trimester: 0.110-3.980 mIU/L Third Trimester: 0.480-4.710 mIU/L Homer Caputo et al. A Practical Approach for the Verifications and Determination of Site- and Trimester-Specific Reference Intervals for Thyroid Function tests in . Thyroid, 2019:29:3:412-420. Moose Lopez et al. 2017 Guidelines of the [place] Thyroid Association for the Diagnosis and Management of Thyroid Disease during and the . Thyroid, 2017:27:3:315-389. Performed By: #### 3 024-7, 3053-6, 3016-3 #### [facility] CLIA [id number] [address] [place] [address] [place] [address] [place] Examination level ultrasound [...] 6 oz EFW by: Hadlock (HC-AC-FL) [employer] Design Engineer 4.7 mm Extremities / Bony Struc [place] / HC 0.17 70% Hadlock Other Structures FHR 161 bpm Anatomy Cranium: normal Lateral ventricles: normal Choroid plexus: normal Midline falx: normal Cerebellum: normal Cisterna magna: normal Lips: normal 4-chamber view: normal RVOT view: suboptimally visualized LVOT view: normal 3-vessel view: normal 4-yomvfq-ipujqpd view: normal Heart / Thorax Diaphragm: normal [...] Read By: Berto Whitley M.D. MATERNAL MEDICINE [facility] Radiology Study observation (narrative) [facility] CNPNon 07-04-2024 CNPN Telephone (OBGYWM) NENA LEIVA ([id number]) 1990 F Date Time Provider Department 07/04/24 [...] 10:02 AM Signed Early anatomy ultrasound scheduled. [employer] message sent to patient. Juliana Huston RN [...] unspecified obesity type (HCC) [O99.212] Order(s):OBSTETRIC ULTRASOUND [facility] [[id number]] Order #: [id number]: 1 FUTURE Prescriptions as of 07/08/2024 - thyroid (CREDIT OPERATIONS PROCESSOR THYROID) 120 mg tablet Take 1 tablet [...] Status:Closed by JULIANA HUSTON on 07/08/24 Normal [facility] T4 Free SerPl-mCncon 025 Free T4 [Mass/Vol] 0.7 ng/dL Low 0.9-1.7 [facility] Comment on above: Order Comment: Speci men Type: BLOOD SPECIMEN Ordering Facility: [facility] Address: [address] [place] [address] Performed By: #### 3 024-7, 3053-6, 3016-3 #### [facility] CLIA [id number] [address] [place], [place] [address] [place] [address] [place] TSH SerPl-aCncon 07-04-2024 TSH Qn 3.350 m[IU]/L Normal 0.270-4.200 [facility] Comment on above: Order Comment: Speci men Type: BLOOD SPECIMEN Ordering Facility: [facility] Address: [address] [place] [address] Result Comment: If t he patient is , TSH reference range varies by gestational period: First Trimester (weeks 9-12): 0.180-2.990 mIU/L Second Trimester: 0.110-3.980 mIU/L Third Trimester: 0.480-4.710 mIU/L Homer Caputo et al. A Practical Approach for the Verifications and Determination of Site- and Trimester-Specific Reference Intervals for Thyroid Function tests in . Thyroid, 2019:29:3:412-420. Moose Lopez, et al. 2017 Guidelines of the [place] Thyroid Association for the Diagnosis and Management of Thyroid Disease during and the . Thyroid, 2017:27:3:315-389. Performed By: #### 3 024-7, 3053-6, 3016-3 #### [facility] CLIA [id number] [address] [place] [address] [place] CBC W Auto Differential pane l (Bld)on 06-12-2024 Basophils (Bld) [#/Vol] 0.05 10*3/uL Normal <0.11 [facility] Comment on above: Order Comment: Speci men Type: BLOOD SPECIMEN Ordering Facility: [facility] Address: [address] [place] [address] Performed By: #### 7 3752-8, 5195-3, 59033-0 #### [facility] CLIA [id number] [address] [place] [address] [place] Basophils/100 WBC (Bld) 0.6 % Normal [facility] Comment on above: Order Comment: Speci men Type: BLOOD SPECIMEN Ordering Facility: [facility] Address: [address] [place] [address] Performed By: #### 7 3752-8, 5195-3, 98577-0 #### [facility] CLIA [id number] [address] [place] [address] [place] Differential cell count method Nom (Bld) Auto Normal [facility] Comment on above: Order Comment: Speci men Type: BLOOD SPECIMEN Ordering Facility: [facility] Address: [address] [place] [address] Performed By: #### 7 3752-8, 5195-3, 29669-9 #### [facility] CLIA [id number] [address] [place] [address] [place] Eosinophils (Bld) [#/Vol] 0.32 10*3/uL Normal <0.46 [facility] Comment on above: Order Comment: Speci men Type: BLOOD SPECIMEN Ordering Facility: [facility] Address: [address] [place] [address] Performed By: #### 7 3752-8, 5195-3, 30045-0 #### [facility] CLIA [id number] [address] [place] [address] [place] Eosinophils/100 WBC (Bld) 3.6 % Normal [facility] Comment on above: Order Comment: Speci men Type: BLOOD SPECIMEN Ordering Facility: [facility] Address: [address] [place] [address] Performed By: #### 7 3752-8, 5195-3, 70928-6 #### [facility] CLIA [id number] [address] [place] [address] [place] Erythrocyte distribution width (RBC) [Ratio] 12.8 % Normal 11.5-15.0 [facility] Comment on above: Order Comment: Speci men Type: BLOOD SPECIMEN Ordering Facility: [facility] Address: [address] [place] [address] Performed By: #### 7 3752-8, 5195-3, 63768-9 #### [facility] CLIA [id number] [address] [place] [address] [place] Hematocrit (Bld) [Volume fraction] 40.1 % Normal 36.0-46.0 [facility] Comment on above: Order Comment: Speci men Type: BLOOD SPECIMEN Ordering Facility: [facility] Address: [address] [place] [address] Performed By: #### 7 3752-8, 5195-3, 29985-7 #### [facility] CLIA [id number] [address] [place] [address] [place] Hemoglobin (Bld) [Mass/Vol] 13.5 g/dL Normal 11.5-15.5 [facility] Comment on above: Order Comment: Speci men Type: BLOOD SPECIMEN Ordering Facility: [facility] Address: [address] [place] [address] Performed By: #### 7 3752-8, 5195-3, 37674-5 #### [facility] CLIA [id number] [address] [place] [address] [place] Immature granulocytes (Bld) [#/Vol] 0.05 10*3/uL Normal <0.10 [facility] Comment on above: Order Comment: Speci men Type: BLOOD SPECIMEN Ordering Facility: [facility] Address: [address] [place] [address] Performed By: #### 7 3752-8, 5195-3, 81449-3 #### [facility] CLIA [id number] [address] [place] [address] [place] Immature granulocytes/100 WBC (Bld) 0.6 % Normal [facility] Comment on above: Order Comment: Speci men Type: BLOOD SPECIMEN Ordering Facility: [facility] Address: [address] [place] [address] Performed By: #### 7 3752-8, 5195-3, 79102-4 #### [facility] CLIA [id number] [address] [place] [address] [place] Lymphocytes (Bld) [#/Vol] 2.44 10*3/uL Normal 1.00-4.00 [facility] Comment on above: Order Comment: Speci men Type: BLOOD SPECIMEN Ordering Facility: [facility] Address: [address] [place] [address] Performed By: #### 7 3752-8, 5195-3, 12483-1 #### [facility] CLIA [id number] [address] [place] [address] [place] Lymphocytes/100 WBC (Bld) 27.4 % Normal [facility] Comment on above: Order Comment: Speci men Type: BLOOD SPECIMEN Ordering Facility: [facility] Address: [address] [place] [address] Performed By: #### 7 3752-8, 5-3, 07476-0 #### [facility] CLIA [id number] [address] [place] [address] [place] MCH (RBC) [Entitic mass] 27.7 pg Normal 26.0-34.0 [facility] Comment on above: Order Comment: Speci men Type: BLOOD SPECIMEN Ordering Facility: [facility] Address: [address] [place] [address] Performed By: #### 7 3752-8, 5195-3, 03161-3 #### [facility] CLIA [id number] [address] [place] [address] [place] MCHC (RBC) [Mass/Vol] 33.7 g/dL Normal 30.5-36.0 [facility] Comment on above: Order Comment: Speci men Type: BLOOD SPECIMEN Ordering Facility: [facility] Address: [address] [place] [address] Performed By: #### 7 3752-8, 5195-3, 65244-8 #### [facility] CLIA [id number] [address] [place] [address] [place] MCV (RBC) [Entitic vol] 82.3 fL Normal 80.0-100.0 [facility] Comment on above: Order Comment: Speci men Type: BLOOD SPECIMEN Ordering Facility: [facility] Address: [address] [place] [address] Performed By: #### 7 3752-8, 5-3, 14814-1 #### [facility] CLIA [id number] [address] [place] [address] [place] Monocytes (Bld) [#/Vol] 0.54 10*3/uL Normal <0.87 [facility] Comment on above: Order Comment: Speci men Type: BLOOD SPECIMEN Ordering Facility: [facility] Address: [address] [place] [address] Performed By: #### 7 3752-8, 3, 15412-5 #### [facility] CLIA [id number] [address] [place] [address] [place] Monocytes/100 WBC (Bld) 6.1 % Normal [facility] Comment on above: Order Comment: Speci men Type: BLOOD SPECIMEN Ordering Facility: [facility] Address: [address] [place] [address] Performed By: #### 7 3752-8, 3, 01072-7 #### [facility] CLIA [id number] [address] [place] [address] [place] Neutrophils (Bld) [#/Vol] 5.52 10*3/uL Normal 1.45-7.50 [facility] Comment on above: Order Comment: Speci men Type: BLOOD SPECIMEN Ordering Facility: [facility] Address: [address] [place] [address] Performed By: #### 7 3752-8, 3, 50465-9 #### [facility] CLIA [id number] [address] [place] [address] [place] Neutrophils/100 WBC (Bld) 61.7 % Normal [facility] Comment on above: Order Comment: Speci men Type: BLOOD SPECIMEN Ordering Facility: [facility] Address: [address] [place] [address] Performed By: #### 7 3752-8, 3, 16510-3 #### [facility] CLIA [id number] [address] [place] [address] [place] Nucleated RBC (Bld) [#/Vol] 10*3/uL Normal <0.01 [facility] Comment on above: Order Comment: Speci men Type: BLOOD SPECIMEN Ordering Facility: [facility] Address: [address] [place] [address] Performed By: #### 7 3752-8, 5195-3, 02186-1 #### [facility] CLIA [id number] [address] [place] [address] [place] Nucleated RBC/100 WBC (Bld) [Ratio] 0.0 /100 WBC Normal [facility] Comment on above: Order Comment: Speci men Type: BLOOD SPECIMEN Ordering Facility: [facility] Address: [address] [place] [address] Performed By: #### 7 3752-8, 5195-3, 75572-5 #### [facility] CLIA [id number] [address] [place] [address] [place] Platelet mean volume (Bld) [Entitic vol] 9.1 fL Normal 9.0-12.7 [facility] Comment on above: Order Comment: Speci men Type: BLOOD SPECIMEN Ordering Facility: [facility] Address: [address] [place] [address] Performed By: #### 7 3752-8, 5195-3, 00427-9 #### [facility] CLIA [id number] [address] [place] [address] [place] Platelets (Bld) [#/Vol] 240 10*3/uL Normal 150-400 [facility] Comment on above: Order Comment: Speci men Type: BLOOD SPECIMEN Ordering Facility: [facility] Address: [address] [place] [address] Performed By: #### 7 3752-8, 5195-3, 79537-0 #### [facility] CLIA [id number] [address] [place] [address] [place] RBC (Bld) [#/Vol] 4.87 10*6/uL Normal 3.90-5.20 [facility] Comment on above: Order Comment: Speci men Type: BLOOD SPECIMEN Ordering Facility: [facility] Address: [address] [place] [address] Performed By: #### 7 3752-8, 5195-3, 60783-3 #### [facility] CLIA [id number] [address] [place] [address] [place] WBC (Bld) [#/Vol] 8.92 10*3/uL Normal 3.70-11.00 [facility] Comment on above: Order Comment: Speci men Type: BLOOD SPECIMEN Ordering Facility: [facility] Address: [address] [place] [address] Performed By: #### 7 3752-8, 5195-3, 80784-4 #### [facility] CLIA [id number] [address] [place] [address] [place] HBV surface Ag Ser Qlon 05-0 HBV surface Ag Ql (S) Negative Normal Negative [facility] Comment on above: Order Comment: Speci men Type: BLOOD SPECIMEN Ordering Facility: [facility] Address: [address] [place] [address] Performed By: #### 7 3752-8, 5195-3, 68303-5 #### [facility] CLIA [id number] [address] [place] [address] [place] HCV Ab Ser Qlon 06-12-2024 HCV Ab Ql (S) Negative Normal Negative [facility] Comment on above: Order Comment: Speci men Type: BLOOD SPECIMEN Ordering Facility: [facility] Address: [address] [place] [address] Result Comment: The result suggests no evidence of infection with Hepatitis C virus. Should recent infection be suspected, repeat testing may be considered 4-6 weeks after this draw. Performed By: #### 3 024-7, 3053-6, 3016-3 #### [facility] CLIA [id number] [address] [place] [address] [place] HIV 1+2 Ab IA Qlon 5 HIV 1 and 2 Ab IA.rapid Nom (S/P/Bld) Normal [facility] Comment on above: Order Comment: Speci men Type: BLOOD SPECIMEN Ordering Facility: [facility] Address: [address] [place] [address] Result Comment: Test not indicated. Performed By: #### 7 3752-8, 5195-3, 78568-5 #### [facility] CLIA [id number] [address] [place] [address] [place] HIV 1+2 Ab+HIV1 p24 Ag IA Ql Non-Reactive Normal Nonreactive [facility] Comment on above: Order Comment: Speci men Type: BLOOD SPECIMEN Ordering Facility: [facility] Address: [address] [place] [address] Performed By: #### 7 3752-8, 5195-3, 59620-5 #### [facility] CLIA [id number] [address] [place] [address] [place] HIV immunoassay testing algorithm interpretation (S/P/Bld) [Interp] Normal [facility] Comment on above: Order Comment: Speci men Type: BLOOD SPECIMEN Ordering Facility: [facility] Address: [address] [place] [address] Result Comment: No e vidence of HIV-1 or HIV-2 infection. Should recent infection be suspected, repeat testing may be considered 2-3 weeks after this draw. [place] Rev. Code 3701.243(E): This information has been [...] diagnoses. Performed By: #### 7 3752-8, 5195-3, 66730-8 #### [facility] CLIA [id number] [address] [place] [address] [place] HbA1c (Bld)on 06-12-2024 Average glucose Estimated from glycated hemoglobin (Bld) [Mass/Vol] 94 mg/dL Normal [facility] Comment on above: Order Comment: Speci men Type: BLOOD SPECIMEN Ordering Facility: [facility] Address: [address] [place] [address] Result Comment: eAG: (Estimated average glucose) is a calculated value from HgbA1c and is district representative of the average blood glucose level in the last 2-3 month period. Performed By: #### 3 024-7, 3053-6, 6-3 #### [facility] CLIA [id number] [address] [place] [address] [place] HbA1c (Bld) [Mass fraction] 4.9 % Normal 4.3-5.6 [facility] Comment on above: Order Comment: Speci men Type: BLOOD SPECIMEN Ordering Facility: [facility] Address: [address] [place] [address] Result Comment: Amer ican Diabetes Association guidelines indicate that patients with HgbA1c in the range 5.7-6.4% are at increased risk for development of diabetes, and intervention by lifestyle modification may be beneficial. HgbA1c greater or equal to 6.5% is considered diagnostic of diabetes. Performed By: #### 3 024-7, 3053-6, 3016-3 #### [facility] CLIA [id number] [address] [place] [address] [place] [id number] PLUSon 06-12-2024 Cell-free DNA./Cell-free DNA.total Dosage of chromosome-specific cfDNA (cfDNA) [Molar fraction] 12% Normal [facility] Comment on above: Order Comment: Speci men Type: BLOOD SPECIMENOrdering Facility: [facility] Address: [address] [place], [place] [address] Performed By: #### M AT21 ####[facility] LABCLIA [id number] [place] [address] Chr 13+18+21+X+Y aneuploidy Dosage of chromosome-specific cfDNA Ql (cfDNA) Negative Normal [facility] Comment on above: Order Comment: Speci men Type: BLOOD SPECIMENOrdering Facility: [facility] Address: [address] [place] [address] Performed By: #### M AT21 ####[facility] LABCLIA [id number] [place] [address] Chr 21 trisomy Dosage of chromosome-specific cfDNA Ql (cfDNA) Negative Normal [facility] Comment on above: Order Comment: Speci men Type: BLOOD SPECIMENOrdering Facility: [facility] Address: [address] [place] [address] Performed By: #### M AT21 ####[facility] LABCLIA [id number] [place] [address] Chr X and Y aneuploidy risk Sequencing Ql (cfDNA) [Interp] Not detected Normal [facility] Comment on above: Order Comment: Speci men Type: BLOOD SPECIMENOrdering Facility: [facility] Address: [address] [place] [address] Result Comment: Not Detected Not Detected Performed By: #### M AT21 ####[facility] LABCLIA [id number] [place] [address] Citation Isaiah (Reference lab test) Comment Normal [facility] Comment on above: Order Comment: Speci men Type: BLOOD SPECIMENOrdering Facility: [facility] Address: [address] [place] [address] Result Comment: 1. P june CLIFFORD, et al. Daniela Med. 2012;14(3):296-305. 2. Barb SANZ et al. Prenat Diag. 2013;33(6):591-597. 3. Jesús C, et al. Clin Chem. 2015 Apr;61(4):608-616. 4. Onesimo CLIFFORD et al. Daniela Med. 2011;13(11):913-920. 5. ACOG/SMFM Practice Bulletin No. 226, Nov 2019. Performed By: #### M AT21 ####[facility] LABCLIA [id number] [place] [address] Gestational age Estimated from conception date Davies Normal [facility] Comment on above: Order Comment: Speci men Type: BLOOD SPECIMENOrdering Facility: [facility] Address: [address] [place] [address] Performed By: #### M AT21 ####[facility] LABCLIA [id number] [place] [id number] GESTATIONALAGE AGE > OR = 9W Yes Normal [facility] Comment on above: Order Comment: Speci men Type: BLOOD SPECIMENOrdering Facility: [facility] Address: [address] [place] [address] Performed By: #### M AT21 ####[facility] LABCLIA [id number] [place] [id number] Laboratory comment Isaiah (Report) Comment Normal [facility] Comment on above: Order Comment: Speci jillian Type: BLOOD SPECIMENOrdering Facility: [facility] Address: [address] [place] [address] Result Comment: The MaterniT(R) 21 PLUS laboratory-developed test (LDT) analyzes circulating cell-free DNA from a maternal blood sample. This test is used for screening purposes and not diagnostic. Clinical correlation is recommended. Validation data on twin pregnancies is limited and the ability of this test to detect aneuploidy in higher multiple gestations has not yet been validated. Performed By: #### M AT21 ####[facility] LABCLIA [id number] [place] [id number] traffic director name Nom (Provider) Comment Normal [facility] Comment on above: Order Comment: Speci men Type: BLOOD SPECIMENOrdering Facility: [facility] Address: [address] [place] [address] Result Comment: This specimen showed an expected representation of chromosome 21, 18 and 13 material. Clinical correlation is suggested. Comment Moe Nagy MD, PhD, Director, [employer] Performed By: #### M AT21 ####[facility] LABCLIA [id number] [place] [address] LIMITATIONS OF THE TEST Comment Normal [facility] Comment on above: Order Comment: Speci men Type: BLOOD SPECIMENOrdering Facility: [facility] Address: [facility] [place] [address] Result Comment: Monik lopez the results of [...] and Fragmin(R)). Performed By: #### M AT21 ####[facility] Labs[facility] [id number] [place] [id number] Monosomy X risk Dosage of chromosome-specific cfDNA Ql (Plasma cell-free+WBC DNA) [Interp] Not detected Normal [facility] Comment on above: Order Comment: Selam walsh Type: BLOOD SPECIMENOrdering Facility: [facility] Address: [address] [place] [address] Performed By: #### M AT21 ####[facility] LABOginIA [id number] [place] [id number] NEGATIVE PREDICTIVE VALUE Note Normal [facility] Comment on above: Order Comment: Selam walsh Type: BLOOD SPECIMENOrdering Facility: [facility] Address: [address] [place] [address] Result Comment: The Negative Predictive Value (NPV) for trisomy 21, 18, and 13 is greater than 99%. The NPV for SCA and ESS cannot be calculated as SCA and ESS are only reported when an abnormality is detected. Performed By: #### M AT21 ####[facility] LABOginIA [id number] [place] [address] PERFORMANCE CHARACTERISTICS Note Normal [facility] Comment on above: Order Comment: Selam walsh Type: BLOOD SPECIMENOrdering Facility: [facility] Address: [address] [place] [address] Result Comment: ! Sex ! Accuracy: 99.4% [...] ! ! ! * As reported in [facility] database nstd37 [https://www.ncbi.nlm.nih.gov/dbvar/studies/nstd37/ ] # Estimated Sensitivity. [...] gestation only. Performed By: #### M AT21 ####[facility] LABCLIA [id number] [place] [address] POSITIVE PREDICTIVE VALUE N/A Normal [facility] Comment on above: Order Comment: Speci men Type: BLOOD SPECIMENOrdering Facility: [facility] Address: [address] [place] [address] Performed By: #### M AT21 ####[facility] LABCLIA [id number] [place] [address] Reference Lab Test Method Comment Normal [facility] Comment on above: Order Comment: Speci men Type: BLOOD SPECIMENOrdering Facility: [facility] Address: [address] [place] [address] Result Comment: See Notes Circulating cell-free DNA [...] and 22. Performed By: #### M AT21 ####[facility] LABCLIA [id number] [place] [address] Service comment (Unsp spec) [Interp] Comment Normal [facility] Comment on above: Order Comment: Speci men Type: BLOOD SPECIMENOrdering Facility: [facility] Address: [address] [place] [address] Result Comment: See Notes [employer]. is a subsidiary of [employer], using the brand [employer]. This test was developed and its performance characteristics determined by [employer]. It has not been cleared or approved by the Food and Drug Administration. This laboratory is certified under the Clinical Laboratory Improvement Amendments (CLIA) as qualified to perform high complexity clinical laboratory testing and accredited by the [employer] (CAP). If there is future clinical need for adding MaterniT GENOME testing, this specimen will be available until term. [facility] samples will not be retained beyond 60 days. [facility] patients will have to send a new sample for re-sequencing ([facility] Test Code: [id number]). Performed By: #### M AT21 ####[facility] LABCLIA [id number] [place] [address] Sex Dosage of chromosome-specific cfDNA Nom (cfDNA) Comment Normal [facility] Comment on above: Order Comment: Speci men Type: BLOOD SPECIMENOrdering Facility: [facility] Address: [address] [place] [address] Result Comment: Cons istent with Female Performed By: #### M AT21 ####[facility] LABOginIA [id number] [place] [address] Test performance information Isaiah (Unsp spec) Comment Normal [facility] Comment on above: Order Comment: Speci men Type: BLOOD SPECIMENOrdering Facility: [facility] Address: [address] [place] [address] Result Comment: The performance characteristics of the MaterniT(R) 21 PLUS laboratory-developed test (LDT) have been determined in a clinical validation study with women at increased risk for chromosomal aneuploidy.[1-4] Performed By: #### M AT21 ####[facility] LABCLIA [id number] [place] [address] Trisomy 13 risk Dosage of chromosome-specific cfDNA Ql (cfDNA) [Interp] Negative Normal [facility] Comment on above: Order Comment: Speci men Type: BLOOD SPECIMENOrdering Facility: [facility] Address: [address] [place] [address] Performed By: #### M AT21 ####[facility] LABCLIA [id number] [place] [address] Trisomy 18 risk Dosage of chromosome-specific cfDNA Ql (Plasma cell-free+WBC DNA) [Interp] Negative Normal [facility] Comment on above: Order Comment: Speci jillian Type: BLOOD SPECIMENOrdering Facility: [facility] Address: [address] [place] [address] Performed By: #### M AT21 ####[facility] LABCLIA [id number] [place] [address] RUBELLA IGG ANTIBODYon 06-12 RUBELLA IGG AB, QUAL Positive Normal Positive [facility] Comment on above: Order Comment: Speci men Type: BLOOD SPECIMEN [facility] Address: [address] [place] [address] Result Comment: The result suggests recent or past exposure to Rubella virus or history of Rubella vaccination. Positive result may also be seen due to presence of passively-transferred antibodies. Please correlate with patient's history. Performed By: #### 7 3752-8, 5195-3, 20659-3 #### [facility] CLIA [id number] [address] [place] [address] [place] Reagin and Treponema pallidu m IgG and IgM [Interp]on 06-12-2024 T. pallidum IgG+IgM IA Ql (S) Non-Reactive Normal Nonreactive [facility] Comment on above: Order Comment: Speci [facility] Type: BLOOD SPECIMEN [facility] Address: [address] [place] [address] Performed By: #### 7 3752-8, 5195-3, 41082-6 #### [facility] CLIA [id number] [address] [place] [address] [place] Reagin+T pallidum IgG+IgM Se rPl-Impon 06-12-2024 Reagin and Treponema pallidum IgG and IgM [Interp] Cannot exclude recent Treponemal infection if specimen collected within 7-10 days after appearance of suspect lesions or 2-3 weeks after an exposure. Clinical correlation is required. Normal [facility] Comment on above: Order Comment: Speci men Type: BLOOD SPECIMEN [facility] Address: [address] [place] [address] Performed By: #### 7 3752-8, 5195-3, 90759-7 #### [facility] CLIA [id number] [address] [place] [address] OF [place] TYPE + SCREEN PRENATALon ABO A Normal [facility] Comment on above: Order Comment: Speci men Type: BLOOD SPECIMEN [facility] Address: [address] [place] [address] Performed By: #### 7 3752-8, 5195-3, 07118-2 #### [facility] CLIA [id number] [address] [place] [address] OF [place] Rh Nom (Bld) Negative Normal [facility] Comment on above: Order Comment: Speci men Type: BLOOD SPECIMEN [facility] Address: [address] [place] [address] Performed By: #### 7 3752-8, 5195-3, 95760-6 #### [facility] CLIA [id number] [address] [place] [address] TYPE AND SCREEN EXPIRATION 06/15/2024 23:59 Normal [facility] Comment on above: Order Comment: Speci men Type: BLOOD SPECIMEN [facility] Address: [address] [place] [address] Performed By: #### 7 3752-8, 5195-3, 25273-8 #### [facility] CLIA [id number] [address] [place] [address] OF [place] CNPRaysa 05-24-2024 CNPN Telephone (FAMPWS) TEJALENNA ARGUELLO ([id number]) 1990 F Date Time Provider Department 05/24/24 [...] Requested Prescriptions Signed Prescriptions Disp Refills thyroid (CREDIT OPERATIONS PROCESSOR THYROID) 120 mg tablet 140 tablet 3 Sig: Take 1 tablet PO 5 days a week and 2 tablets PO 2 days a week Authorizing Provider: MIGUELITO CHAMPION DO Rowland, Kathryn, MA 05/26/2024 9:44 AM Signed Pt notified of results via [employer]. Glo Smith Ma Allergies As of Date: 05/24/2024 Noted Allergy Reaction BEES 07/07/2008 7 - Swelling LATEX 07/07/2008 4 - Hives Date Reviewed: 05/23/2024 Reviewed by: Almita Sawyer LPN - Fully Assessed Reason for Visit: Results [95] Cmt: Primary Visit Diagnosis:Hypothyroidi sm, acquired [E03.9] Order(s):thyroid (CREDIT OPERATIONS PROCESSOR THYROID) 120 mg tabletTake 1 tablet PO 5 days a week and 2 tablets PO 2 days a weekDisp: 140 tabletRfl: 3 THYROID STIMULATING HORMONE [SQTSH] Order #: [id number] FUTURE T4 FREE/FREE THYROXINE [SQFT4] Order #: [id number] FUTURE Prescriptions as of 05/26/2024 - thyroid (CREDIT OPERATIONS PROCESSOR THYROID) 120 mg tablet Take 1 tablet [...] Medications Discontinued During This Encounter Prescriptions - CREDIT OPERATIONS PROCESSOR THYROID 60 mg tablet (Discontinued) TAKE 2 TABLETS BY MOUTH EVERY DAY Encounter Status:Closed by GLO SMITH on 05/26/24 Normal [facility] Bacteria Ur Culton 5 Bacteria identified Cx Nom (U) ORGANISM ID: 1 >=100,000 CFU/ml Normal urogenital trina Normal [facility] Comment on above: Performed By: #### 7 3752-8, 5195-3, 11208-2 #### [facility] CLIA [id number] [address] [place] [address] [place] [address] [place] C. trachomatis+N. gonorrhoea e DNA SAMSON+probe Ql (Unsp spec)on 05-23-2024 C. trachomatis rRNA SAMSON+probe Ql (Unsp spec) Not detected Normal Not detected [facility] Comment on above: Order Comment: Speci men Type: BLOOD SPECIMEN [facility] Address: [address] [place] [address] Performed By: #### 3 024-7, 3053-6, 3016-3 #### [facility] CLIA [id number] [address] [place] [address] [place] N. gonorrhoeae rRNA SAMSON+probe Ql (Unsp spec) Not detected Normal Not detected [facility] Comment on above: Order Comment: Speci men Type: BLOOD SPECIMEN [facility] Address: [address] [place] [address] Performed By: #### 3 024-7, 3053-6, 3016-3 #### [facility] CLIA [id number] [address] [place] [address] [place] HIGH RISK HUMAN PAPILLOMA BIB (HPV), PCR FOR DETECTION AND GENOTYPINGon 05-23-2024 HPV 16 Ag Ql (Unsp spec) Not detected Normal Not detected [facility] Comment on above: Order Comment: Speci men Type: FLUID SPECIMENOrdering Facility: [facility] Address: [address] [place] [address] Performed By: #### H PVHRT ####[facility] LABIA [id number] [place] [address] [place] HPV 18 Ag Ql (Unsp spec) Not detected Normal Not detected [facility] Comment on above: Order Comment: Speci men Type: FLUID SPECIMENOrdering Facility: [facility] Address: [address] [place] [address] Performed By: #### H PVHRT ####[facility] LABIA [id number] [place] [address] [place] HPV 31+33+35+39+45+51+52 +56+58+59+66+68 DNA SAMSON+probe Ql (Cvx) Not detected Normal Not detected [facility] Comment on above: Order Comment: Speci men Type: FLUID SPECIMENOrdering Facility: [facility] Address: [address] [place] [address] Result Comment: High Risk HPV Other Type includes HPV types 31, 33, 35, 39, 45, 51, 52, 56, 58, 59, 66 and 68. Performed By: #### H PVHRT ####[facility] LABCLIA [id number] [place] [address] [place] PAP TESTon 05-23-2024 ADEQUACY Normal [facility] Comment on above: Order Comment: Speci men Type: BLOOD SPECIMEN [facility] Address: [address] [place] [address] Result Comment: Sati sfactory for interpretation. Transformation zone present Performed By: #### 7 3752-8, 5194-3, 14708-3 #### [facility] CLIA [id number] [address] [place] [address] [place] CASE REPORT Normal [facility] Comment on above: Order Comment: Speci men Type: BLOOD SPECIMEN [facility] Address: [address] [place] [address] Result Comment: Gyne cologic Cytology Report Case: [id number] Authorizing Provider: Shiloh Westfall APRN.INSTRUMENT LENS GRINDER Collected: 05/23/2024 09:08 AM Ordering Location: OB/Gynecology Received: 05/23/2024 12:22 PM First Screen: Gmitro, Darryl, CT, ASCP Specimen: Pap Test, ThinPrep, Cervix Performed By: #### 7 3752-8, 5194-3, 71565-6 #### [facility] CLIA [id number] [address] [place], [place] [address] [place] CLINICAL HISTORY, CYTOLOGY, SAP PAYROLL CONSULTANT Routine Exam Normal [facility] Comment on above: Order Comment: Speci men Type: BLOOD SPECIMEN [facility] Address: [address] [place] [address] Performed By: #### 7 3752-8, 5195-3, 53313-4 #### [facility] CLIA [id number] [address] [place] [address] [place] FINAL PERFORMING LAB Normal [facility] Comment on above: Order Comment: Speci men Type: BLOOD SPECIMEN [facility] Address: [address] [place] [address] Result Comment: Tech nical component, jig worker screening performed at [facility], [address] [facility] [place] [address] CLIA# [id number] Diagnostic interpretation performed at [facility], [address] [place] [address] CLIA# [id number] Customs Officer: Bassma Dawn M.D. Performed By: #### 7 3752-8, 5195-3, 65521-2 #### [facility] CLIA [id number] [address] [place] [address] [place] INTERPRETATION, CYTOLOGY, SAP PAYROLL CONSULTANT Normal [facility] Comment on above: Order Comment: Speci men Type: BLOOD SPECIMEN [facility] Address: [address] [place] [address] Result Comment: Nega tive for intraepithelial lesion or malignancy. at 1427 EDT Performed By: #### 7 3752-8, 5-3, 09519-6 #### [facility] CLIA [id number] [address] [place], [place] [address] [place] LMP 04/02/2024 Normal [facility] Comment on above: Order Comment: Speci men Type: BLOOD SPECIMEN [facility] Address: [address] [place], [place] [address] Performed By: #### 7 3752-8, 5-3, 55329-4 #### [facility] CLIA [id number] [address] [place], [place] [address] [place] PAP DISCLAIMER COMMENT The Pap Smear is a screening test for cervical cancer. False negative results occur with all screening tests, emphasizing the need for rescreening at recommended intervals, and clinical correlation. Normal [facility] Comment on above: Order Comment: Speci men Type: BLOOD SPECIMEN [facility] Address: [address] [place] [address] Performed By: #### 7 3752-8, 5195-3, 08523-1 #### [facility] CLIA [id number] [address] [place] [address] OF [place] PAP MUCK OPERATOR COMMENT This specimen has be en analyzed by the ThinPrep Imaging System, an automated imaging and review system, which assists the laboratory in evaluating cells on ThinPrep Pap tests. Following automated imaging, selected narvaez from every slide are reviewed by a jig worker. Normal [facility] Comment on above: Order Comment: Luis Antonioi jillian Type: BLOOD SPECIMEN [facility] Address: [address] [place] [address] Performed By: #### 7 3752-8, 5195-3, 46197-1 #### [facility] CLIA [id number] [address] [place] [address] [place] POC FLAKER OPERATOR ULTRASOUNDon 05-24-19 Indication Confirmation of intrauterine . [...] Read By: Shiloh Westfall CNP MATERNAL MEDICINE [facility] Radiology Study observation (narrative) [facility] T4 Free SerPl-mCncon 025 Free T4 [Mass/Vol] 0.9 ng/dL Normal 0.9-1.7 [facility] Comment on above: Order Comment: Speci men Type: BLOOD SPECIMEN [facility] Address: [address] [place] [address] Performed By: #### 7 3752-8, 5195-3, 60889-7 #### [facility] CLIA [id number] [address] [place] [address] [place] TRICHOMONAS VAGINALIS NAATon 05-23-2024 T. vaginalis DNA SAMSON+probe Ql (Unsp spec) Not detected Normal Not detected [facility] Comment on above: Order Comment: Speci men Type: BLOOD SPECIMEN Ordering Facility: [facility] Address: [address] [place] [address] Performed By: #### 3 024-7, 3053-6, 3016-3 #### [facility] CLIA [id number] [address] [place] [address] [place] TSH SerPl-aCncon 05-23-2024 TSH Qn 6.500 m[IU]/L High 0.270-4.200 [facility] Comment on above: Order Comment: Speci men Type: BLOOD SPECIMEN Ordering Facility: [facility] Address: [address] [place] [address] Result Comment: If t he patient is , TSH reference range varies by gestational period: First Trimester (weeks 9-12): 0.180-2.990 mIU/L Second Trimester: 0.110-3.980 mIU/L Third Trimester: 0.480-4.710 mIU/L Homer Caputo et al. A Practical Approach for the Verifications and Determination of Site- and Trimester-Specific Reference Intervals for Thyroid Function tests in . Thyroid, 2019:29:3:412-420. Moose E, et al. 2017 Guidelines of the [place] Thyroid Association for the Diagnosis and Management of Thyroid Disease during and the . Thyroid, 2017:27:3:315-389. Performed By: #### 7 3752-8, 5195-3, 17218-0 #### [facility] CLIA [id number] [address] [place] [address] CNPNon 05-05-2024 CNPN Telephone (OBGYWM) NENA LEIVA ([id number]) 1990 F Date Time Provider Department 05/05/24 [...] Assessed Reason for Visit: Question (OB Question) [6891] Prescriptions as of 05/05/2024 - tirzepatide (MOUNJARO) 10 mg/0.5 mL pen injector Inject 10 mg subcutaneously one time a week. - CREDIT OPERATIONS PROCESSOR THYROID 60 mg tablet TAKE 2 TABLETS [...] Encounter Status:Closed by JULIANA HUSTON on 05/05/24 [facility] LE[facility] ([id number]) 1990 F Date Time Provider Department 05/05/24 [facility] During your visit today, we recorded the [...] [E03.9] Order(s):THYROID STIMULATING HORMONE [SQTSH] Order #: [id number] FUTURE T4 FREE/FREE THYROXINE [SQFT4] Order #: [id number] FUTURE Prescriptions as of 05/05/2024 - tirzepatide (MOUNJARO) 10 mg/0.5 mL pen injector Inject 10 mg subcutaneously one time a week. - CREDIT OPERATIONS PROCESSOR THYROID 60 mg tablet TAKE 2 TABLETS [...] by LISA LEÓN LPN on 05/05/24 Normal [facility] T3 SerPl-mCncon 04-04-2024 T3 [Mass/Vol] 72 ng/dL Low 79-165 [facility] Comment on above: Order Comment: Speci men Type: BLOOD SPECIMEN Ordering Facility: [facility] Address: [address] [place] [address] Performed By: #### 3 024-7, 305-6, 3015-3 #### [facility] CLIA [id number] [address] [place] [address] [place] T4 Free SerPl-mCncon 025 Free T4 [Mass/Vol] 0.9 ng/dL Normal 0.9-1.7 [facility] Comment on above: Order Comment: Selam walsh Type: BLOOD SPECIMEN Ordering Facility: [facility] Address: [address] [place] [address] Performed By: #### 3 024-7, 30504-17, 3 #### [facility] CLIA [id number] [address] [place] [address] [place] TSH SerPl-aCncon 04-04-2024 TSH Qn 2.590 m[IU]/L Normal 0.270-4.200 [facility] Comment on above: Order Comment: Selam walsh Type: BLOOD SPECIMEN Ordering Facility: [facility] Address: [address] [place] [address] Result Comment: If t he patient is , TSH reference range varies by gestational period: First Trimester (weeks 9-12): 0.180-2.990 mIU/L Second Trimester: 0.110-3.980 mIU/L Third Trimester: 0.480-4.710 mIU/L Homer Caputo et al. A Practical Approach for the Verifications and Determination of Site- and Trimester-Specific Reference Intervals for Thyroid Function tests in . Thyroid, 2019:29:3:412-420. Moose E, et al. 2017 Guidelines of the [place] Thyroid Association for the Diagnosis and Management of Thyroid Disease during and the . Thyroid, 2017:27:3:315-389. Performed By: #### 3 024-7, 3053-6, 3015-3 #### [facility] CLIA [id number] [address] [place] [address] OF [place] Vania 03-11-2024 CNPN Telephone (FAMPWS) NENA LEIVA ([id number]) 1990 F Date Time Provider Department 03/11/24 [...] of kayy I will be able to burr picker for the month of March. Thank you for all you do! Miguelito Carpenter DO 03/18/2024 4:50 PM Signed I am not aware of any of this information with the [facility] pharmacy Recommend that she calls and asks the pharmacy specifically any questions DO Natasha Skelton Susan LPN 03/19/2024 8:58 AM Signed Pt. informed via My Chart Allergies As of Date: 03/11/2024 Noted Allergy Reaction BEES 07/07/2008 7 - Swelling LATEX 07/07/2008 4 - Hives Date Reviewed: 07/20/2023 Reviewed by: Alyson Meza LPN - Fully Assessed Reason for Visit: Patient Question [1917] Prescriptions as of 03/19/2024 - tirzepatide (MOUNJARO) [...] - cetirizine (ZYRTEC) 10 mg tablet - CREDIT OPERATIONS PROCESSOR THYROID 60 mg tablet TAKE 2 TABLETS [...] Status:Closed by LISA LEÓN LPN on 03/19/24 [facility] 02-14-2024 [facility] Telephone (COURTNEY) NENA LEIVA ([id number]) 1990 F Date Time Provider Department 02/14/24 KAREN AZAR During your visit today, we recorded the following information about you: Karen Azar APRN.[facility] 02/14/2024 3:25 PM Signed Please call [...] AM Signed Pt notified of results via Mammotome. Glo Smith Ma Allergies As of Date: 02/14/2024 Noted Allergy Reaction BEES 07/07/2008 7 - Swelling LATEX 07/07/2008 4 - Hives Date Reviewed: 07/20/2023 Reviewed by: Alyson Meza LPN - Fully Assessed Reason for Visit: Results [95] Primary Visit Diagnosis:Acquired hypothyroidism [E03.9] Order(s):THYROID STIMULATING HORMONE [SQTSH] Order #: [id number] FUTURE T3 [SQT3] Order #: [id number] FUTURE T4 FREE/FREE THYROXINE [SQFT4] Order #: [id number] FUTURE Prescriptions as of 02/18/2024 - tirzepatide [...] - cetirizine (ZYRTEC) 10 mg tablet - CREDIT OPERATIONS PROCESSOR THYROID 60 mg tablet TAKE 2 TABLETS [...] Status:Closed by GLO SMITH on 02/18/24 Normal [facility] T3 SerPl-mCncon 02-04-2024 T3 [Mass/Vol] 87 ng/dL Normal 79-165 [facility] Comment on above: Order Comment: Speci men Type: BLOOD SPECIMEN Ordering Facility: [facility] Address: [address] [place] [address] Performed By: #### 7 3752-8, 5195-3, 97670-5 #### [facility] CLIA [id number] [address] [place] [address] [place] T4 Free SerPl-mCncon 024 Free T4 [Mass/Vol] 1.0 ng/dL Normal 0.9-1.7 [facility] Comment on above: Order Comment: Speci men Type: BLOOD SPECIMEN Ordering Facility: [facility] Address: [address] [place] [address] Performed By: #### 7 3752-8, 5195-3, 03668-9 #### [facility] CLIA [id number] [address] [place] [address] [place] TSH SerPl-aCncon 02-04-2024 TSH Qn 4.880 m[IU]/L High 0.270-4.200 [facility] Comment on above: Order Comment: Speci men Type: BLOOD SPECIMEN Ordering Facility: [facility] Address: [address] [place] [address] Result Comment: If t he patient is , TSH reference range varies by gestational period: First Trimester (weeks 9-12): 0.180-2.990 mIU/L Second Trimester: 0.110-3.980 mIU/L Third Trimester: 0.480-4.710 mIU/L Homer Caputo et al. A Practical Approach for the Verifications and Determination of Site- and Trimester-Specific Reference Intervals for Thyroid Function tests in . Thyroid, 2019:29:3:412-420. Moose Lopez, et al. 2017 Guidelines of the [place] Thyroid Association for the Diagnosis and Management of Thyroid Disease during and the . Thyroid, 2017:27:3:315-389. Performed By: #### 7 3752-8, 5195-3, 32632-0 #### [facility] CLIA [id number] [address] [place] [address] [place] CBC W Auto Differential pane l (Bld)on 07-20-2023 Basophils (Bld) [#/Vol] 0.09 10*3/uL [facility] Basophils/100 WBC (Bld) 0.8 % [facility] Differential cell count method Nom (Bld) Auto [facility] Eosinophils (Bld) [#/Vol] 0.41 10*3/uL [facility] Eosinophils/100 WBC (Bld) 3.5 % [facility] Erythrocyte distribution width (RBC) [Ratio] 13.1 % 11.5 - 15.0 % [facility] Hematocrit (Bld) [Volume fraction] 46.6 % High 36.0 - 46.0 % [facility] Hemoglobin (Bld) [Mass/Vol] 15.0 g/dL 11.5 - 15.5 g/dL [facility] Immature granulocytes (Bld) [#/Vol] 0.03 10*3/uL [facility] Immature granulocytes/100 WBC (Bld) 0.3 % [facility] Interpretation and review of laboratory results Abnormal [facility] Lymphocytes (Bld) [#/Vol] 3.24 10*3/uL [facility] Lymphocytes/100 WBC (Bld) 27.4 % [facility] MCH (RBC) [Entitic mass] 26.5 pg 26.0 - 34.0 pg [facility] MCHC (RBC) [Mass/Vol] 32.2 g/dL 30.5 - 36.0 g/dL [facility] MCV (RBC) [Entitic vol] 82.5 fL 80.0 - 100.0 fL [facility] Monocytes (Bld) [#/Vol] 0.73 10*3/uL NINF [facility] Monocytes/100 WBC (Bld) 6.2 % [facility] Neutrophils (Bld) [#/Vol] 7.33 10*3/uL [facility] Neutrophils/100 WBC (Bld) 61.8 % [facility] Nucleated RBC (Bld) [#/Vol] NINF [facility] Nucleated RBC/100 WBC (Bld) [Ratio] 0.0 % /100 WBC [facility] Platelet mean volume (Bld) [Entitic vol] 10.0 fL 9.0 - 12.7 fL [facility] Platelets (Bld) [#/Vol] 329 10*3/uL [facility] RBC (Bld) [#/Vol] 5.65 10*6/uL High 3.90 - 5.2 0 m/uL [facility] WBC (Bld) [#/Vol] 11.83 10*3/uL [facility] Comprehensive metabolic 2000 panelon 07-20-2023 Albumin [Mass/Vol] 4.8 g/dL 3.9 - 4.9 g/dL [facility] ALP [Catalytic activity/Vol] 82 U/L 34 - 123 U/L [facility] ALT [Catalytic activity/Vol] 13 U/L 7 - 38 U/L [facility] Anion gap [Moles/Vol] 15 mmol/L 8 - 15 mmol/L [facility] AST [Catalytic activity/Vol] 17 U/L 13 - 35 U/L [facility] Bilirubin [Mass/Vol] 0.6 mg/dL 0.2 - 1.3 mg/dL [facility] Calcium [Mass/Vol] 9.8 mg/dL 8.5 - 10. 2 mg/dL [facility] Chloride [Moles/Vol] 101 mmol/L 98 - 107 mmol/L [facility] CO2 [Moles/Vol] 22 mmol/L 22 - 30 mmol/L [facility] Creatinine [Mass/Vol] 0.94 mg/dL 0.58 - 0.96 mg/dL [facility] GFR/1.73 sq M.predicted among non-blacks MDRD (S/P/Bld) [Vol rate/Area] 82 mL/min/{1.73_m2} - PINF [facility] Comment on above: Estimated Glomerular Filtration [...] [Mass/Vol] 92 mg/dL 74 - 99 mg/dL [facility] Comment on above: The [place] Diabete s Association (ADA) provides guidance for [...] Standards of Medical Care in Diabetes 2016, [place] Diabetes Association. Diabetes Care. 2016.39(Suppl 1). Interpretation and review of laboratory results Normal [facility] Potassium [Moles/Vol] 4.7 mmol/L 3.7 - 5.1 mmol/L [facility] Protein [Mass/Vol] 7.6 g/dL 6.3 - 8.0 g/dL Cl [facility] Sodium [Moles/Vol] 138 mmol/L 136 - 144 mmol/L [facility] Urea nitrogen [Mass/Vol] 14 mg/dL 7 - 21 mg/dL [facility] Free T3 [Mass/Vol]on 024 Interpretation and review of laboratory results Abnormal [facility] Free T4 [Mass/Vol]on 024 Interpretation and review of laboratory results Normal [facility] HbA1c (Bld)on 07-20-2023 Average glucose Estimated from glycated hemoglobin (Bld) [Mass/Vol] 94 mg/dL [facility] Comment on above: eAG: (Estimated aver age glucose) is a calculated value from HgbA1c and is district representative of the average blood glucose level in the last 2-3 month period. HbA1c (Bld) [Mass fraction] 4.9 % 4.3 - 5.6 % [facility] Comment on above: [place] Diabetes As sociation guidelines indicate that patients with HgbA1c in the range 5.7-6.4% are at increased risk for development of diabetes, and intervention by lifestyle modification may be beneficial. HgbA1c greater or equal to 6.5% is considered diagnostic of diabetes. [facility] Lipid 1996 panelon 4 Cholesterol [Mass/Vol] 182 mg/dL NINF - 200 mg/dL [facility] Comment on above: <200 mg/dL, Desirabl e 200-239 mg/dL, Borderline high >239 mg/dL, High Cholesterol in HDL [Mass/Vol] 53 mg/dL 39 - PINF mg/dL [facility] Comment on above: 40-59 mg/dL, Accepta ble >59 mg/dL, High: Negative risk factor for coronary heart disease <40 mg/dL, Low: Positive risk factor for coronary heart disease Cholesterol in LDL [Mass/Vol] 117 mg/dL High NINF - 100 mg/dL [facility] Comment on above: <100 mg/dL, Optimal 100-129 mg/dL, Near optimal/above optimal 130-159 mg/dL, Borderline high 160-189 mg/dL, High >189 mg/dL, Very high Secondary prevention optimal LDL Cholesterol levels are recommended to be < 70 mg/dL Cholesterol in LDL/Cholesterol in HDL [Mass ratio] 2.21 {ratio} NINF - 2.54 [facility] Comment on above: Reference: 1. National Cholesterol Education Program ATP III Guideline At-A-Glance Quick Desk Reference: National Heart, Lung, and Blood Cosmos. National Institutes of Health. 2001: NIH Publication No. 01-3305. 2. An International Atherosclerosis Society position paper: global recommendations for the management of dyslipidemia: executive summary, Atherosclerosis. 2014: 232(2):410-413. Cholesterol in VLDL [Mass/Vol] 12 mg/dL NINF - 30 mg/dL [facility] Cholesterol non HDL [Mass/Vol] 129 mg/dL NINF - 130 mg/dL [facility] Comment on above: <130 mg/dL, Optimal 130-159 mg/dL, Near optimal/above optimal 160-189 mg/dL, Borderline high 190-219 mg/dL, High >219 mg/dL, Very high Secondary prevention optimal non HDL Cholesterol levels are recommended to be <100 mg/dL Cholesterol.total/Ch olesterol in HDL [Mass ratio] 3.43 {ratio} NINF - 5.10 [facility] Fasting Time 16 hrs [facility] Interpretation and review of laboratory results Abnormal [facility] Triglyceride [Mass/Vol] 61 mg/dL NINF - 150 mg/dL [facility] Comment on above: <150 mg/dL, Normal 150-199 mg/dL, Borderline high 200-499 mg/dL, High >499 mg/dL, Very high No Panel Informationon 07-19 [facility] T3, FREEon 07-20-2023 Free T3 [Mass/Vol] 6.2 pg/mL High 2.3 - 4.1 pg/mL [facility] T4 FREE/FREE THYROXINEon Free T4 [Mass/Vol] 1.1 ng/dL 0.9 - 1.7 ng/dL [facility] THYROID STIMULATING HORMONEo n 07-20-2023 TSH Qn 4.760 m[IU]/L High [facility] Comment on above: If the patient [...] Lopez, et al. 2017 Guidelines of the [place] Thyroid Association for the Diagnosis and Management of Thyroid Disease during and the . Thyroid, 2017:27:3:315-389. TSH Qnon 07-20-2023 Interpretation and review of laboratory results Abnormal [facility] CBC W Auto Differential pane l (Bld)on 09-22-2022 Basophils (Bld) [#/Vol] 0.05 10*3/uL <0.11 k/uL [facility] Basophils/100 WBC (Bld) 0.6 % [facility] Differential cell count method Nom (Bld) Auto [facility] Eosinophils (Bld) [#/Vol] 0.26 10*3/uL <0.46 k/uL [facility] Eosinophils/100 WBC (Bld) 3.1 % [facility] Erythrocyte distribution width (RBC) [Ratio] 12.8 % 11.5 - 15.0 % [facility] Hematocrit (Bld) [Volume fraction] 43.2 % 36.0 - 46.0 % [facility] Hemoglobin (Bld) [Mass/Vol] 14.1 g/dL 11.5 - 15.5 g/dL [facility] Immature granulocytes (Bld) [#/Vol] <0.10 k/uL [facility] Immature granulocytes/100 WBC (Bld) 0.2 % [facility] Lymphocytes (Bld) [#/Vol] 2.62 10*3/uL 1.00 - 4.00 k/uL [facility] Lymphocytes/100 WBC (Bld) 31.3 % [facility] MCH (RBC) [Entitic mass] 28.0 pg 26.0 - 34.0 pg [facility] MCHC (RBC) [Mass/Vol] 32.6 g/dL 30.5 - 36.0 g/dL [facility] MCV (RBC) [Entitic vol] 85.7 fL 80.0 - 100.0 fL [facility] Monocytes (Bld) [#/Vol] 0.62 10*3/uL <0.87 k/uL [facility] Monocytes/100 WBC (Bld) 7.4 % [facility] Neutrophils (Bld) [#/Vol] 4.80 10*3/uL 1.45 - 7.50 k/uL [facility] Neutrophils/100 WBC (Bld) 57.4 % [facility] Nucleated RBC (Bld) [#/Vol] <0.01 k/uL [facility] Nucleated RBC/100 WBC (Bld) [Ratio] 0.0 /100 WBC [facility] Platelet mean volume (Bld) [Entitic vol] 10.4 fL 9.0 - 12.7 fL [facility] Platelets (Bld) [#/Vol] 278 10*3/uL 150 - 400 k/uL [facility] RBC (Bld) [#/Vol] 5.04 10*6/uL 3.90 - 5.2 0 m/uL [facility] WBC (Bld) [#/Vol] 8.37 10*3/uL 3.70 - 11. 00 k/uL [facility] Comprehensive metabolic 2000 panelon 09-22-2022 Albumin [Mass/Vol] 4.4 g/dL 3.9 - 4.9 g/dL [facility] ALP [Catalytic activity/Vol] 68 U/L 34 - 123 U/L [facility] ALT [Catalytic activity/Vol] 16 U/L 7 - 38 U/L [facility] Anion gap [Moles/Vol] 10 mmol/L 9 - 18 mmol/L [facility] AST [Catalytic activity/Vol] 22 U/L 13 - 35 U/L [facility] Bilirubin [Mass/Vol] 0.4 mg/dL 0.2 - 1.3 mg/dL [facility] Calcium [Mass/Vol] 9.5 mg/dL 8.5 - 10. 2 mg/dL [facility] Chloride [Moles/Vol] 104 mmol/L 97 - 105 mmol/L [facility] CO2 [Moles/Vol] 25 mmol/L 22 - 30 mmol/L [facility] Creatinine [Mass/Vol] 0.81 mg/dL 0.58 - 0.96 mg/dL [facility] Estimated Glomerular Filtration Rate 98 mL/min/1.73m >=60 mL/min/1.73m [facility] Glucose [Mass/Vol] 101 mg/dL High 74 - 99 mg/dL [facility] Potassium [Moles/Vol] 4.1 mmol/L 3.7 - 5.1 mmol/L [facility] Protein [Mass/Vol] 6.9 g/dL 6.3 - 8.0 g/dL [facility] Sodium [Moles/Vol] 139 mmol/L 136 - 144 mmol/L [facility] Urea nitrogen [Mass/Vol] 14 mg/dL 7 - 21 mg/dL [facility] HbA1c (Bld)on 09-22-2022 Average glucose Estimated from glycated hemoglobin (Bld) [Mass/Vol] 97 mg/dL [facility] HbA1c (Bld) [Mass fraction] 5.0 % 4.3 - 5.6 % [facility] Lipid 1996 panelon 3 Cholesterol [Mass/Vol] 174 mg/dL <200 mg/dL [facility] Cholesterol in HDL [Mass/Vol] 55 mg/dL >39 mg/dL [facility] Cholesterol in LDL [Mass/Vol] 97 mg/dL <100 mg/dL [facility] Cholesterol in LDL/Cholesterol in HDL [Mass ratio] 1.76 {ratio} <2.54 [facility] Cholesterol in VLDL [Mass/Vol] 22 mg/dL <30 mg/dL [facility] Cholesterol non HDL [Mass/Vol] 119 mg/dL <130 mg/dL [facility] Cholesterol.total/Ch olesterol in HDL [Mass ratio] 3.16 {ratio} <5.10 [facility] Fasting Time 14 hrs [facility] Triglyceride [Mass/Vol] 108 mg/dL <150 mg/dL [facility] XR Foot - left AP and Latera l and obliqueon 04-06-2020 IMPRESSION: No acute osseous abnormality identified. Pretzel Cooker: PSCB Transcribe Date/Time: Apr 06 2020 9:59A Dictated by : NANDO SWIFT MD This examination was interpreted and the report reviewed and electronically signed by: NANDO SWIFT MD on Apr 06 2020 10:04AM [facility] DIVISION OF RADIOLOGY * * *Final Report* [...] tissue abnormality identified. DIVISION OF RADIOLOGY Provider, [facility] Gisele [facility] - 04/06/2020 * * *Final Report* [...] IMPRESSION IMPRESSION: No acute osseous abnormality identified. Pretzel Cooker: PSCB Transcribe Date/Time: Apr 06 2020 9:59A Dictated by : NANDO SWIFT MD This examination was interpreted and the report reviewed and electronically signed by: NANDO SWIFT MD on Apr 06 2020 10:04AM EST [facility] Radiology Study observation (narrative) [facility] XR Foot - left AP and Latera l and obliqueOrdered By: Ccf Provider on 04-06-2020 [facility] Vital Signs Date Time Vital Sign Value Performing Clinician Facility 10-29-2024 10:58-0400 Body mass index (BMI) [Ratio] 39.18 kg/m2 Kristen Smith MD Work Phone: [facility] 10-29-2024 10:58-0400 Body weight 107.96 kg Kristen Smith MD Work Phone: [facility] 10-29-2024 10:58-0400 Diastolic blood pressure 68 mm[Hg] Kristen Smith MD Work Phone: [facility] 10-29-2024 10:58-0400 Systolic blood pressure 100 mm[Hg] Kristen Smith MD Work Phone: [facility] 10-15-2024 14:38-0400 Body mass index (BMI) [Ratio] 39.18 kg/m2 Lauren Madera APRN.INSTRUMENT LENS GRINDER Work Phone: [facility] 10-15-2024 14:38-0400 Body weight 107.96 kg Lauren Madera APRN.INSTRUMENT LENS GRINDER Work Phone: [facility] 10-15-2024 14:38-0400 Diastolic blood pressure 80 mm[Hg] Lauren Matakim CARPENTER.INSTRUMENT LENS GRINDER Work Phone: [facility] 10-15-2024 14:38-0400 Systolic blood pressure 120 mm[Hg] Lauren Matakim CARPENTER.INSTRUMENT LENS GRINDER Work Phone: [facility] 08-23-2024 08:41-0400 Body height 166 cm Miguelito Champion DO Work Phone: [facility] 08-23-2024 08:41-0400 Body mass index (BMI) [Ratio] 37.4 kg/m2 Miguelito Champion DO Work Phone: [facility] 08-23-2024 08:41-0400 Body temperature 98.01 [degF] Miguelito Champion DO Work Phone: [facility] 08-23-2024 08:41-0400 Body weight 103.06 kg Miguelito Champion DO Work Phone: [facility] 08-23-2024 08:41-0400 Diastolic blood pressure 67 mm[Hg] Miguelito Champion DO Work Phone: [facility] Comment on above: bp machine 08-23-2024 08:41-0400 Heart rate 85 /min Miguelito Champion DO Work Phone: [facility] 08-23-2024 08:41-0400 SaO2% (BldA) [Mass fraction] 97 % Miguelito Champion DO Work Phone: [facility] 08-23-2024 08:41-0400 Systolic blood pressure 106 mm[Hg] Miguelito Champion DO Work Phone: [facility] Comment on above: bp machine 08-22-2024 15:56-0400 Body mass index (BMI) [Ratio] 38.12 kg/m2 Joe Boyce MD Work Phone: [facility] 08-22-2024 15:56-0400 Body weight 103.78 kg Joe Boyce MD Work Phone: [facility] 08-22-2024 15:56-0400 Diastolic blood pressure 70 mm[Hg] Joe Boyce MD Work Phone: [facility] 08-22-2024 15:56-0400 Systolic blood pressure 116 mm[Hg] Joe Boyce MD Work Phone: [facility] 07-25-2024 11:48-0400 Diastolic blood pressure 64 mm[Hg] Denae Renteria EXPEDITER.CNM Work Phone: [facility] 07-25-2024 11:48-0400 Systolic blood pressure 112 mm[Hg] Denae Renteria EXPEDITER.CNM Work Phone: [facility] 05-23-2024 08:12-0400 Body mass index (BMI) [Ratio] 35.59 kg/m2 Shiloh Powersite EXPEDITER.INSTRUMENT LENS GRINDER Work Phone: [facility] 05-23-2024 08:12-0400 Body weight 96.89 kg Shiloh Khoi EXPEDITER.INSTRUMENT LENS GRINDER Work Phone: [facility] 05-23-2024 08:12-0400 Diastolic blood pressure 62 mm[Hg] Shiloh Khoi EXPEDITER.INSTRUMENT LENS GRINDER Work Phone: [facility] 05-23-2024 08:12-0400 Systolic blood pressure 110 mm[Hg] Shiloh Powersite EXPEDITER.INSTRUMENT LENS GRINDER Work Phone: [facility] 07-20-2023 12:38-0400 Body height 165 cm Miguelito Champion DO Work Phone: [facility] 07-20-2023 12:38-0400 Body mass index (BMI) [Ratio] 37.79 kg/m2 Miguelito Champion DO Work Phone: [facility] 07-20-2023 12:38-0400 Body temperature 96.91 [degF] Miguelito Champion DO Work Phone: [facility] 07-20-2023 12:38-0400 Body weight 102.88 kg Miguelito Champion DO Work Phone: [facility] 07-20-2023 12:38-0400 Diastolic blood pressure 78 mm[Hg] Miguelito Champion DO Work Phone: [facility] 07-20-2023 12:38-0400 Heart rate 105 /min Miguelito Champion DO Work Phone: [facility] 07-20-2023 12:38-0400 Respiratory rate 16 /min Miguelito Champion DO Work Phone: [facility] 07-20-2023 12:38-0400 SaO2% (BldA) [Mass fraction] 99 % Miguelito Champion DO Work Phone: [facility] 07-20-2023 12:38-0400 Systolic blood pressure 104 mm[Hg] Miguelito Champion DO Work Phone: [facility] 09-22-2022 08:13-0400 Body height 164 cm Karen Azar EXPEDITER.INSTRUMENT LENS GRINDER Work Phone: [facility] 09-22-2022 08:13-0400 Body weight 111.31 kg Karen Azar EXPEDITER.INSTRUMENT LENS GRINDER Work Phone: [facility] 09-22-2022 08:13-0400 Diastolic blood pressure 70 mm[Hg] Karen Azar EXPEDITER.INSTRUMENT LENS GRINDER Work Phone: [facility] 09-22-2022 08:13-0400 Heart rate 64 /min Karen Azar EXPEDITER.INSTRUMENT LENS GRINDER Work Phone: [facility] 09-22-2022 08:13-0400 Respiratory rate 12 /min Karen Azar EXPEDITER.INSTRUMENT LENS GRINDER Work Phone: [facility] 09-22-2022 08:13-0400 Systolic blood pressure 118 mm[Hg] Karen Azar EXPEDITER.INSTRUMENT LENS GRINDER Work Phone: [facility] 06-13-2022 19:44-0400 Body temperature 98.01 [degF] Paula Lang PA-C Work Phone: [facility] 06-13-2022 19:44-0400 Body weight 112.49 kg Paula Athy PA-C Work Phone: [facility] 06-13-2022 19:44-0400 Diastolic blood pressure 72 mm[Hg] Paula Athy PA-C Work Phone: [facility] 06-13-2022 19:44-0400 Heart rate 90 /min Paula Athy PA-C Work Phone: [facility] 06-13-2022 19:44-0400 Respiratory rate 16 /min Paula Athy PA-C Work Phone: [facility] 06-13-2022 19:44-0400 SaO2% (BldA) [Mass fraction] 99 % Paula Athy PA-C Work Phone: [facility] 06-13-2022 19:44-0400 Systolic blood pressure 122 mm[Hg] Paula Athy PA-C Work Phone: [facility] 07-06-2021 07:39-0400 Body height 164.5 cm Miguelito Champion DO Work Phone: [facility] 07-06-2021 07:39-0400 Body temperature 97.5 [degF] Miguelito Champion DO Work Phone: [facility] 07-06-2021 07:39-0400 Body weight 103.87 kg Miguelito Champion DO Work Phone: [facility] 07-06-2021 07:39-0400 Diastolic blood pressure 70 mm[Hg] Miguelito Champion DO Work Phone: [facility] 07-06-2021 07:39-0400 Heart rate 80 /min Miguelito Champion DO Work Phone: [facility] 07-06-2021 07:39-0400 Respiratory rate 16 /min Miguelito Champion DO Work Phone: [facility] 07-06-2021 07:39-0400 Systolic blood pressure 120 mm[Hg] Miguelito Champion DO Work Phone: [facility] Encounters Encounter Date Encounter Type Care Provider Facility Start: 12-25-2024 End: 12-25-2024 ambulatory MIGUELITO L CHAMPION Facility:[facility] Start: 12-23-2024 End: 12-23-2024 ambulatory Denae Renteria Facility:[facility] Start: 12-18-2024 End: 12-18-2024 ambulatory MIGUELITO L CHAMPION Facility:[facility] Start: 12-11-2024 End: 12-11-2024 ambulatory MIGUELITO L CHAMPION Facility:[facility] Start: 12-11-2024 End: 12-11-2024 ambulatory MIGUELITO L CHAMPION Facility:[facility] Start: 11-27-2024 End: 11-27-2024 ambulatory MIGUELITO L CHAMPION Facility:[facility] Start: 11-12-2024 End: 11-12-2024 ambulatory MIGUELITO L CHAMPION Facility:[facility] Start: 11-12-2024 End: 11-12-2024 ambulatory MIGUELITO L CHAMPION Facility:[facility] Start: 10-29-2024 End: 10-29-2024 Telephone encounter Lianna Moreno MD Work Phone: OB/Gynecology Comment on above: Breast Pump RX Start: 10-29-2024 End: 10-29-2024 Patient encounter procedure Kristen Smith MD Work Phone: OB/Gynecology Comment on above: 30 weeks gestation o f ([facility]) (Primary Dx); Supervision of high risk in second trimester ([facility]); Twin with single intrauterine , first trimester, fetus 1 ([facility]); AMA (advanced maternal age) multigravida 35+, second trimester ([facility]); Obesity affecting in second trimester, unspecified obesity type ([facility]) Start: 10-29-2024 End: 10-29-2024 ambulatory MIGUELITO L CHAMPION Facility:[facility] Start: 10-24-2024 End: 10-27-2024 ambulatory Miguelito L [...] (HCC) (Primary Dx); 28 weeks gestation of ([facility]); Twin with single intrauterine , first trimester, fetus 1 ([facility]); AMA (advanced maternal age) multigravida 35+, second trimester ([facility]); Obesity affecting in second trimester, unspecified obesity type ([facility]); Hypothyroidism affecting in second trimester ([facility]); Rh negative state in antepartum period ([facility]); High-risk , multigravida of advanced maternal age, antepartum (HCC) High-risk , multigravida of advanced maternal age, antepartum ([facility]); 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 ([facility]); Class 2 obesity without serious comorbidity with body mass index (BMI) of 37.0 to 37.9 in adult, unspecified obesity type Start: 10-15-2024 End: 10-16-2024 ambulatory Lauren Madera APRN.CNP Work Phone: OB/Gynecology Comment on above: Hospital Form Start: 10-11-2024 End: 10-16-2024 Refill Miguelito Harshal Champion DO Work Phone: [facility] Comment on above: Refill Request Start: 09-19-2024 End: 09-19-2024 ambulatory MIGUELITO OROZCORISON Facility:[facility] Start: 09-18-2024 End: 09-18-2024 ambulatory MIGUELITO L CHAMPION Facility:[facility] Start: 08-23-2024 Encounter for genera l adult medical examination without abnormal findings MIGUELITO CHAMPION [facility] Start: 08-23-2024 End: 08-23-2024 Patient encounter procedure Miguelito Champion DO Work Phone: [facility] Comment on above: Wellness examination (Primary Dx); Screening for depression; Encounter for screening examination for other mental health and behavioral disorders; Acquired hypothyroidism; 20 weeks gestation of ([facility]) Start: 08-23-2024 End: 08-23-2024 Patient encounter status Miguelito Harshal Champion Work Phone: [facility] Start: 08-23-2024 End: 08-23-2024 ambulatory MIGUELITO CHAMPION Facility:[facility] Start: 08-22-2024 End: 08-22-2024 ambulatory MIGUELITO CHAMPION Facility:[facility] Start: 08-22-2024 End: 08-22-2024 Patient encounter procedure 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 [employer] [facility] Maternal [facility] Comment on above: Family history of co ngenital heart defect (Primary Dx); with uncertain dates in first trimester ([facility]); High-risk , multigravida of advanced maternal age, antepartum ([facility]); 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 ([facility]); Class 2 obesity without serious comorbidity with body mass index (BMI) of 37.0 to 37.9 in adult, unspecified obesity type Twin with single intrauterine , first trimester, fetus 1 (HCC) (Primary Dx); 20 weeks gestation of ([facility]); Supervision of high risk in second trimester ([facility]); AMA (advanced maternal age) multigravida 35+, second trimester ([facility]); Obesity affecting in second trimester, unspecified obesity type (HCC); High-risk , multigravida of advanced maternal age, antepartum ([facility]) Start: 08-22-2024 End: 08-22-2024 ambulatory MIGUELITO CHAMPION Facility:[facility] Start: 07-25-2024 End: 09-24-2024 Follow-up encounter Kristen Smith MD Work Phone: OB/Gynecology Start: 07-25-2024 End: 07-25-2024 ambulatory MIGUELITO CHAMPION Facility:[facility] Start: 07-25-2024 End: 07-25-2024 Patient encounter procedure 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 [employer] [facility] Maternal Medicine Comment on above: screening for malformation using ultrasonics ([facility]) (Primary Dx); Obesity affecting in second trimester, unspecified obesity type (HCC); Twin with single intrauterine , first trimester, fetus 1 (HCC); 16 weeks gestation of ([facility]) Supervision of high risk in second trimester ([facility]) (Primary Dx); 16 weeks gestation of ([facility]); Twin with single intrauterine , first trimester, fetus 1 ([facility]); Obesity affecting in second trimester, unspecified obesity type ([facility]); AMA (advanced maternal age) multigravida 35+, second trimester ([facility]); Hypothyroidism affecting in second trimester ([facility]) Start: 07-15-2024 End: 09-14-2024 Follow-up encounter Miguelito L Champion DO Work Phone: [facility] Start: 07-09-2024 End: 07-09-2024 ambulatory Joe Boyce MD Work Phone: OB/Gynecology Start: 07-09-2024 End: 07-09-2024 Follow-up encounter Joe Boyce MD Work Phone: OB/Gynecology Comment on above: Follow up Start: 07-04-2024 End: 07-04-2024 ambulatory MIGUELITO L CHAMPION Facility:[facility] Start: 07-04-2024 End: 07-04-2024 ambulatory MIGUELITO L CHAMPION Facility:[facility] Start: 07-04-2024 End: 07-08-2024 Telephone encounter Joe Boyce MD Work Phone: OB/Gynecology Comment on above: Appointment; Orders Start: 06-12-2024 End: 06-12-2024 ambulatory MIGUELITO L CHAMPION Facility:[facility] Start: 06-05-2024 End: 06-05-2024 ambulatory MIGUELITO L CHAMPION Facility:[facility] Start: 05-26-2024 End: 05-26-2024 Refill Miguelito [...] L Champion DO Work Phone: [facility] [place] Comment on above: Thyroid labs Start: 05-23-2024 End: 05-23-2024 Patient encounter procedure Shilohfredrick SousaKhoiolga CARPENTER.INSTRUMENT LENS GRINDER Work Phone: OB/Gynecology Comment on above: High-risk [...] 04-07-2024 End: 04-14-2024 Follow-up encounter Karen Azar APRN.INSTRUMENT LENS GRINDER Work Phone: [facility] [place] Comment on above: Acquired hypothyroid ism Start: 04-04-2024 End: 04-04-2024 ambulatory MIGUELITO L CHAMPION Facility:[facility] Start: 03-11-2024 End: 03-19-2024 Telephone encounter [...] 02-14-2024 End: 02-18-2024 Telephone encounter Karen Azar EXPEDITER.INSTRUMENT LENS GRINDER Work Phone: [facility] Comment on above: Results Start: 02-04-2024 End: 02-04-2024 ambulatory MIGUELITO Harshal CHAMPION Facility:[facility] Start: 01-16-2024 End: 01-16-2024 Get Medical Advice Miguelito L Champion DO Work Phone: [facility] Comment on above: Lab orders Start: 12-12-2023 End: 12-20-2023 ambulatory Miguelito Harshal OrozcoChampion DO Work Phone: [facility] Comment on above: labs Start: 11-21-2023 End: 11-21-2023 ambulatory Miguelito Harshal OrozcoChampion DO Work Phone: [facility] Comment on above: Lab results Start: 11-21-2023 End: 11-23-2023 Telephone encounter Miguelito Orozcorison DO Work Phone: [facility] Comment on above: Results (thyroid) Start: 10-03-2023 End: 10-04-2023 ambulatory Miguelito Orozcorison DO Work Phone: [facility] Comment on above: vermox Start: 09-22-2023 Telephone encounter Miguelito Pierce arrison DO Work Phone: [facility] Comment on above: Medication Request Start: 08-08-2023 Telephone encounter Miguelito Pierce arrison DO Work Phone: [facility] Start: 07-21-2023 End: 05-23-2024 Patient encounter status Miguelito Orozcorison DO Work Phone: [facility] Start: 07-20-2023 End: 07-20-2023 Patient encounter procedure Miguelito L Champion DO Work Phone: [facility] Comment on above: Wellness examination (Primary Dx); Acquired hypothyroidism; Class 2 obesity with body mass index (BMI) of 37.0 to 37.9 in adult, unspecified obesity type, unspecified whether serious comorbidity present Start: 07-20-2023 End: 07-20-2023 Patient encounter status Miguelito L Champion DO Work Phone: [facility] Work Phone: Start: 03-31-2023 Refill Karen Azar EXPEDITER.INSTRUMENT LENS GRINDER Work Phone: [facility] Comment on above: Refill Request Start: 03-22-2023 ambulatory Miguelito bryson DO Work Phone: [facility] Comment on above: Weight loss Start: 03-22-2023 Telephone encounter Miguelito aponte DO Work Phone: [facility] Comment on above: Patient Question Start: 10-31-2022 ambulatory Miguelito bryson DO Work Phone: [facility] Comment on above: Thyroid meds Start: 10-31-2022 Telephone encounter Miguelito aponte DO Work Phone: [facility] Comment on above: Thyroid Problem Start: 10-20-2022 ambulatory Miguelito bryson DO Work Phone: [facility] Comment 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 Start: 10-20-2022 Telephone encounter Miguelito aponte DO Work Phone: [facility] Comment on above: Medication Problem Start: 10-13-2022 Refill Karen Azar EXPEDITER.INSTRUMENT LENS GRINDER Work Phone: [facility] Comment on above: Med Change Request Start: 10-05-2022 Telephone encounter Miguelito aponte DO Work Phone: [facility] Start: 09-29-2022 ambulatory Miguelito bryson DO Work Phone: [facility] Comment on above: Labs Start: 09-23-2022 Telephone encounter Miguelito aponte DO Work Phone: [facility] Comment on above: Results Start: 09-22-2022 ambulatory Miguelito bryson DO Work Phone: [facility] Comment on above: Thyroid labs Start: 09-22-2022 End: 09-22-2022 Patient encounter procedure Karentim Azar EXPEDITER.INSTRUMENT LENS GRINDER Work Phone: [facility] Comment on above: Wellness examination (Primary Dx); Acquired hypothyroidism Start: 09-22-2022 End: 09-22-2022 Patient encounter status Karen Azar APRN.INSTRUMENT LENS GRINDER Work Phone: [facility] Work Phone: Start: 08-28-2022 Patient encounter status Bc Champion DO Work Phone: [facility] Work Phone: Start: 08-28-2022 Telephone encounter Miguelito aponte DO Work Phone: [facility] Comment on above: Patient Question Start: 08-27-2022 ambulatory Miguelito bryson DO Work Phone: [facility] Comment on above: Yearly Health Screen ing Start: 07-03-2022 Telephone encounter Miguelito aponte DO Work Phone: [facility] Comment on above: Results Start: 06-25-2022 ambulatory Miguelito bryson DO Work Phone: [facility] Comment on above: Labs Start: 06-13-2022 End: 06-13-2022 Patient encounter procedure Paula Lang PA-C Work Phone: [facility] Comment on above: Cat scratch of forea rm, left, initial encounter (Primary Dx) Start: 03-10-2022 ambulatory Miguelito bryson DO Work Phone: [facility] Start: 03-10-2022 Patient encounter procedure Miguelito Champion DO Work Phone: [facility] Comment on above: Appointment Start: 12-09-2021 Refill Karen yap APRN.INSTRUMENT LENS GRINDER Work Phone: [facility] Comment on above: Refill Request Start: 08-07-2021 ambulatory Miguelito bryson DO Work Phone: [facility] Comment on above: Insurance Form Start: 07-06-2021 End: 07-06-2021 Patient encounter procedure Miguelito L Champion DO Work Phone: [facility] Comment on above: Wellness examination (Primary Dx); Acquired hypothyroidism Start: 07-06-2021 End: 07-06-2021 Patient encounter status Miguelito Champion DO Work Phone: [facility] Start: 06-13-2021 Refill Karen Zurawic k EXPEDITER.INSTRUMENT LENS GRINDER Work Phone: [facility] Comment on above: Refill Request Start: 05-21-2021 Refill Karen Zurawic k EXPEDITER.INSTRUMENT LENS GRINDER Work Phone: [facility] Comment on above: Refill Request Start: 05-18-2021 Telephone encounter Karen moreno EXPEDITER.INSTRUMENT LENS GRINDER Work Phone: [facility] Comment on above: Results Start: 05-03-2021 Refill Karen Zurawic k EXPEDITER.INSTRUMENT LENS GRINDER Work Phone: [facility] Comment on above: Refill Request Start: 04-29-2021 Patient encounter status Giovanni Dobbins MD Work Phone: [facility] Start: 04-29-2021 Refill Jorge Dobbins MD Work Phone: [facility] Comment on above: Refill Request Start: 04-06-2020 End: 04-06-2020 Subsequent hospital visit by physician Xr [facility] Work Phone: Radiology Comment on above: Foot injury, left, i nitial encounter [S99.922A] Start: 08-07-2018 End: 01-23-2019 Physical examination Miguelito Champion DO Work Phone: [facility] Start: 03-14-2018 End: 05-30-2019 Patient requested procedure Miguelito Champion DO Work Phone: [facility] Start: 12-24-2015 End: 03-28-2018 Patient encounter status Miguelito Champion DO Work Phone: [facility] Procedures Date Procedure Procedure Detail Performing Clinician Start: 10-15-2024 Antibody screen MIGUELITO CHAMPION Comment on above: Order Comment: Speci men Type: BLOOD SPECIMEN Ordering Facility: [facility] Address: [address] [place] [address] Performed By: #### 7 [id number], 5195-3, [id number] #### [facility] CLIA [id number] [address] [place], [place] [address] [address] [place] Start: 10-15-2024 Us preg uterus after 1st trimest / gestation Jossie Gonzales MD Work Phone: Start: 08-23-2024 Adult depression screening assessment Miguelito Champion DO Work Phone: Start: 08-22-2024 Us preg uterus after 1st trimest 1/ gestation Shiloh Westfall EXPEDITER.INSTRUMENT LENS GRINDER Work Phone: Start: 07-25-2024 Us preg uterus after 1st trimest 1/ gestation Kristen Smith MD Work Phone: Start: 06-12-2024 Antibody screen MIGUELITO CHAMPION Comment on above: Order Comment: Speci men Type: BLOOD SPECIMEN Ordering Facility: [facility] Address: [address] [place] [address] Performed By: #### 7 [id number], [id number], 54396-0 #### [facility] CLIA [id number] [address] [place] [address] [place] Start: 05-23-2024 Us uterus limited 1/> fetuses Shiloh Westfall EXPEDITER.INSTRUMENT LENS GRINDER Work Phone: Start: 07-06-2021 Adult depression screening assessment Miguelito Champion DO Work Phone: Start: 04-06-2020 Radex foot complete minimum 3 views Filiberto Groves EXPEDITER.INSTRUMENT LENS GRINDER Work Phone: Start: 08-07-2018 Adult depression screening assessment Jorge Dobbins MD Work Phone: Plan of Treatment Date Care Activity Detail Author Start: 05-23-2029 Screening for malign ant neoplasm of cervix Cervical Cancer Screening [facility] Start: 08-23-2025 Annual PCP Team Plastic 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 kelley Disease Visit Annual PCP Team Chronic Disease Visit [facility] Start: 08-23-2025 Anxiety Screening Anxiety Screening [facility] Start: 08-23-2025 Depression Screening Depression Scre ening [facility] Start: 01-07-2025 ambulatory Ambulatory Facility:[facility] Start: 11-23-2024 End: 02-22-2025 Thyrotropin [Units/volume] in Serum or Plasma THYROID STIMULATING HORMONE Lab Routine Acquired hypothyroidism Expected: 11/23/2024, Expires: 02/22/2025 [facility] Work Phone: Comment on above: Expected: 11/23/2024 , Expires: 02/22/2025 Start: 11-23-2024 End: 02-22-2025 Thyroxine (T4) free [Mass/volume] in Serum or Plasma T4 FREE/FREE THYROXINE Lab Routine Acquired hypothyroidism Expected: 11/23/2024, Expires: 02/22/2025 [facility] Comment on above: Expected: 11/23/2024 , Expires: 02/22/2025 Start: 11-12-2024 End: 11-12-2024 Patient encounter procedure Maternal Medicine Comment on above: Growth Growth /OB Start: 11-12-2024 RSV Vaccine (1 - Ris k 1-dose series) RSV Vaccine (1 - Risk 1-dose series) [facility] Start: 10-29-2024 End: 10-29-2024 Patient encounter procedure 10/29/2024 10:40 AM EDT Routine Office Visit OB/Gynecology [address] [place], [place] [id number] Kristen Smith MD [address] [place], [place] [address] OB OB/Gynecology Comment on above: OB Start: 10-15-2024 End: 10-15-2024 ambulatory 10/15/2024 3:00 PM EDT Results Only [facility] [place] [facility] [address] [place] [id number] glucose lab-Requesting the dye free lemon chickahominy indian tribe flavor [facility] Comment on above: glucose lab-Requesti ng the dye free lemon chickahominy indian tribe flavor Start: 10-15-2024 End: 10-15-2024 Patient encounter procedure Maternal Medicine Comment on above: Growth Growth/glucose/OB Start: 10-15-2024 End: 01-14-2025 Thyrotropin [Units/volume] in Serum or Plasma [facility] Work Phone: Comment on above: Expected: 10/15/2024 , Expires: 01/14/2025 Start: 10-15-2024 End: 01-14-2025 Thyroxine (T4) free [Mass/volume] in Serum or Plasma [facility] Comment on above: Expected: 10/15/2024 , Expires: 01/14/2025 Start: 10-13-2024 Influenza vaccination [facility] Start: 09-23-2024 End: 12-23-2024 Thyrotropin [Units/volume] in Serum or Plasma THYROID STIMULATING HORMONE Lab Routine Acquired hypothyroidism Expected: 09/23/2024, Expires: 12/23/2024 [facility] Work Phone: Comment on above: Expected: 09/23/2024 , Expires: 12/23/2024 Start: 09-23-2024 End: 12-23-2024 Thyroxine (T4) free [Mass/volume] in Serum or Plasma T4 FREE/FREE THYROXINE Lab Routine Acquired hypothyroidism Expected: 09/23/2024, Expires: 12/23/2024 [facility] Comment on above: Expected: 09/23/2024 , Expires: 12/23/2024 Start: 09-18-2024 End: 09-18-2024 Patient encounter procedure 09/18/2024 2:40 PM EDT Routine Office Visit OB/Gynecology [address] [place] [address] Kristen Smith MD [address] [place] [address] OB OB/Gynecology Comment on above: OB Start: 08-23-2024 End: 08-23-2024 Patient encounter procedure 08/23/2024 9:00 AM EDT Office Visit Family Medicine Liz [address] [place] [address] Miguelito Champion, DO [address] [place] [address] Physical Family Medicine Liz Comment on above: Physical Start: 08-22-2024 End: 08-22-2024 Patient encounter procedure OB/Gynecology Comment on above: Twins/Anatomy/OB Anatomy/OB Start: 08-22-2024 End: 08-22-2024 Patient encounter procedure Maternal Medicine Comment on above: Twins/Anatomy Anatomy Start: 07-25-2024 End: 07-25-2024 Patient encounter procedure Maternal Medicine Comment on above: Early Anatomy OB Start: 07-19-2024 Annual PCP Team 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 Disease Visit Annual PCP Team Chronic Disease Visit [facility] Start: 07-08-2024 End: 07-08-2025 OBSTETRIC ULTRASOUND WHI OBSTETRIC ULTRASOUND WHI Anc Imaging Routine Twin with single intrauterine , first trimester, fetus 1 (HCC) 13 weeks gestation of (HCC) Obesity affecting in second trimester, unspecified obesity type (HCC) Expected: 07/08/2024, Expires: 07/08/2025 [facility] Work Phone: Comment on above: Expected: 07/08/2024 , Expires: 07/08/2025 Start: 07-04-2024 End: 07-04-2024 Patient encounter procedure Maternal Medicine Comment on above: Twin/Nuchal Twins/Nuchal/OB Start: 06-25-2024 End: 09-24-2024 Thyrotropin [Units/volume] in Serum or Plasma THYROID STIMULATING HORMONE Lab Routine Hypothyroidism, acquired Expected: 06/25/2024, Expires: 09/24/2024 [facility] Work Phone: Comment on above: Expected: 06/25/2024 , Expires: 09/24/2024 Start: 06-25-2024 End: 09-24-2024 Thyroxine (T4) free [Mass/volume] in Serum or Plasma T4 FREE/FREE THYROXINE Lab Routine Hypothyroidism, acquired Expected: 06/25/2024, Expires: 09/24/2024 [facility] Comment on above: Expected: 06/25/2024 , Expires: 09/24/2024 Start: 06-05-2024 End: 06-05-2024 Patient encounter procedure 06/05/2024 1:00 PM EDT Routine Office Visit OB/Gynecology [address] [place] [address] Remote, [employer] [address] [place] [address] Twins /Dating OB/Gynecology Comment on above: Twins /Dating Start: 05-23-2024 End: 08-22-2024 ANEMIA REFLEX PANEL ANEMIA REFLEX PANEL Lab Routine with uncertain dates in first trimester (HCC) Expected: 05/23/2024, Expires: 08/22/2024 [facility] Work Phone: Comment on above: Expected: 05/23/2024 , Expires: 08/22/2024 Start: 05-23-2024 End: 08-22-2024 Chromosome 21 trisomy [Presence] in Blood or Tissue by Cytogenetics [id number] PLUS Lab Routine Twin gestation in first trimester, unspecified multiple gestation type (HCC) Expected: 05/23/2024, Expires: 08/22/2024 [facility] Comment on above: Expected: 05/23/2024 , Expires: 08/22/2024 Start: 05-23-2024 End: 08-22-2024 Hemoglobin A1c in Blood HEMOGLOBIN A1C Lab Routine with uncertain dates in first trimester (HCC) Expected: 05/23/2024, Expires: 08/22/2024 [facility] Comment on above: Expected: 05/23/2024 , Expires: 08/22/2024 Start: 05-23-2024 End: 08-22-2024 Hepatitis B virus surface Ag [Presence] in Serum HEPATITIS B SURFACE ANTIGEN Lab Routine with uncertain dates in first trimester (HCC) Expected: 05/23/2024, Expires: 08/22/2024 [facility] Comment on above: Expected: 05/23/2024 , Expires: 08/22/2024 Start: 05-23-2024 End: 08-22-2024 Hepatitis C virus Ab [Presence] in Serum HEPATITIS C ANTIBODY IA WITH CONFIRMATION Lab Routine with uncertain dates in first trimester (HCC) Expected: 05/23/2024, Expires: 08/22/2024 [facility] Comment on above: Expected: 05/23/2024 , Expires: 08/22/2024 Start: 05-23-2024 End: 08-22-2024 HIV 1+2 Ab [Presence] in Serum or Plasma by Immunoassay HIV 1/2 COMBO WITH REFLEX TO DIFFERENTIATION Lab Routine with uncertain dates in first trimester (HCC) Expected: 05/23/2024, Expires: 08/22/2024 [facility] Comment on above: Expected: 05/23/2024 , Expires: 08/22/2024 Start: 05-23-2024 End: 05-23-2025 OBSTETRIC ULTRASOUND [facility] Comment on above: Expected: 05/23/2024 , Expires: 05/23/2025 Start: 05-23-2024 End: 08-22-2024 RUBELLA IGG ANTIBODY RUBELLA IGG ANTIBODY Lab Routine with uncertain dates in first trimester (HCC) Expected: 05/23/2024, Expires: 08/22/2024 [facility] Comment on above: Expected: 05/23/2024 , Expires: 08/22/2024 Start: 05-23-2024 End: 08-22-2024 SYPHILIS TREPONEMAL W/REFLEX SYPHILIS TREPONEMAL W/REFLEX Lab Routine with uncertain dates in first trimester (HCC) Expected: 05/23/2024, Expires: 08/22/2024 [facility] Comment on above: Expected: 05/23/2024 , Expires: 08/22/2024 Start: 05-23-2024 End: 08-22-2024 TYPE + SCREEN TYPE + SCREEN Blood Bank Routine with uncertain dates in first trimester (HCC) Expected: 05/23/2024, Expires: 08/22/2024 [facility] Comment on above: Expected: 05/23/2024 , Expires: 08/22/2024 Start: 05-23-2024 End: 05-23-2024 Patient encounter procedure 05/23/2024 8:15 AM EDT Initial Office Visit OB/Gynecology [address] [place] [address] Shiloh Westfall APRN.INSTRUMENT LENS GRINDER [address] [place] [address] New OB=LMP 2 OB/Gynecology Comment on above: New OB=LMP 2/ Start: 05-05-2024 End: 08-04-2024 Thyrotropin [Units/volume] in Serum or Plasma THYROID STIMULATING HORMONE Lab Routine Hypothyroidism, acquired Expected: 05/05/2024, Expires: 08/04/2024 [facility] Work Phone: Comment on above: Expected: 05/05/2024 , Expires: 08/04/2024 Start: 05-05-2024 End: 08-04-2024 Thyroxine (T4) free [Mass/volume] in Serum or Plasma T4 FREE/FREE THYROXINE Lab Routine Hypothyroidism, acquired Expected: 05/05/2024, Expires: 08/04/2024 [facility] Comment on above: Expected: 05/05/2024 , Expires: 08/04/2024 Start: 03-25-2024 Urine microalbumin profile [facility] Start: 03-17-2024 End: 06-16-2024 Thyrotropin [Units/volume] in Serum or Plasma THYROID STIMULATING HORMONE Lab Routine Acquired hypothyroidism Expected: 03/17/2024, Expires: 06/16/2024 [facility] Work Phone: Comment on above: Expected: 03/17/2024 , Expires: 06/16/2024 Start: 03-17-2024 End: 06-16-2024 Thyroxine (T4) free [Mass/volume] in Serum or Plasma T4 FREE/FREE THYROXINE Lab Routine Acquired hypothyroidism Expected: 03/17/2024, Expires: 06/16/2024 [facility] Comment on above: Expected: 03/17/2024 , Expires: 06/16/2024 Start: 03-17-2024 End: 06-16-2024 Triiodothyronine (T3) [Mass/volume] in Serum or Plasma T3 Lab Routine Acquired hypothyroidism Expected: 03/17/2024, Expires: 06/16/2024 [facility] Comment on above: Expected: 03/17/2024 , Expires: 06/16/2024 Start: 10-14-2023 Covid-19 Vaccine ( season) Covid-19 Vaccine () [facility] Start: 10-14-2023 Influenza vaccination [facility] Start: 10-08-2023 End: 01-07-2024 CBC panel - Blood by Automated count COMPLETE BLOOD COUNT Lab Routine Acquired hypothyroidism Leukocytosis, unspecified type Expected: 10/08/2023, Expires: 01/07/2024 [facility] Comment on above: Expected: 10/08/2023 , Expires: 01/07/2024 Start: 10-08-2023 End: 01-07-2024 Thyrotropin [Units/volume] in Serum or Plasma THYROID STIMULATING HORMONE Lab Routine Acquired hypothyroidism Expected: 10/08/2023, Expires: 01/07/2024 [facility] Work Phone: Comment on above: Expected: 10/08/2023 , Expires: 01/07/2024 Start: 10-08-2023 End: 01-07-2024 Thyroxine (T4) free [Mass/volume] in Serum or Plasma T4 FREE/FREE THYROXINE Lab Routine Acquired hypothyroidism Expected: 10/08/2023, Expires: 01/07/2024 [facility] Comment on above: Expected: 10/08/2023 , Expires: 01/07/2024 Start: 10-08-2023 End: 01-07-2024 Triiodothyronine (T3) Free [Mass/volume] in Serum or Plasma T3, FREE Lab Routine Acquired hypothyroidism Expected: 10/08/2023, Expires: 01/07/2024 [facility] Comment on above: Expected: 10/08/2023 , Expires: 01/07/2024 Start: 09-23-2023 ANNUAL PCP TEAM GALLEY BOY KELLEY DISEASE VISIT ANNUAL PCP TEAM CHRONIC DISEASE VISIT [facility] Start: 09-23-2023 COVID-19 VACCINE (#1) COVID-19 VACCI NE (#1) [facility] Comment on above: Postponed from 09/18 (Declined at this time) Start: 09-23-2023 HPV TESTING HPV TESTING [facility] Comment on above: Postponed from 03/21 (Declined at this time) Start: 09-23-2023 Screening for malign ant neoplasm of cervix HPV Testing [facility] Comment on above: Postponed from 03/21 (Declined at this time) Start: 03-26-2023 PAP TESTING PAP TESTING [facility] Start: 03-26-2023 Screening for malign ant neoplasm of cervix Pap Testing [facility] Start: 02-12-2023 Behavioral Health Screening Behavioral Health Screening [facility] Start: 02-12-2023 Depression Assessment Depression Ass essment [facility] Start: 10-26-2022 End: 12-26-2022 Thyrotropin [Units/volume] in Serum or Plasma TSH BLD Lab Routine Acquired hypothyroidism Expected: 10/26/2022, Expires: 12/26/2022 [facility] Work Phone: Comment on above: Expected: 10/26/2022 , Expires: 12/26/2022 Start: 10-26-2022 End: 12-26-2022 Thyroxine (T4) free [Mass/volume] in Serum or Plasma T4 FREE/FREE THYROX Lab Routine Acquired hypothyroidism Expected: 10/26/2022, Expires: 12/26/2022 [facility] Work Phone: Comment on above: Expected: 10/26/2022 , Expires: 12/26/2022 Start: 10-26-2022 End: 12-26-2022 Triiodothyronine (T3) [Mass/volume] in Serum or Plasma T3 BLD Lab Routine Acquired hypothyroidism Expected: 10/26/2022, Expires: 12/26/2022 [facility] Work Phone: Comment on above: Expected: 10/26/2022 , Expires: 12/26/2022 Start: 10-13-2022 Covid-19 Vaccine () Covid-19 Vaccine () [facility] Start: 10-13-2022 Influenza vaccination [facility] Start: 09-11-2022 End: 11-11-2022 THYROID PEROXIDASE ANTIBODY BLOOD THYROID PEROXIDASE ANTIBODY BLOOD Lab Routine Acquired hypothyroidism Expected: 09/11/2022 (Approximate), Expires: 11/11/2022 [facility] Work Phone: Comment on above: Expected: 09/11/2022 (Approximate), Expires: 11/11/2022 Start: 09-11-2022 End: 11-11-2022 Thyrotropin [Units/volume] in Serum or Plasma TSH BLD Lab Routine Acquired hypothyroidism Expected: 09/11/2022 (Approximate), Expires: 11/11/2022 [facility] Work Phone: Comment on above: Expected: 09/11/2022 (Approximate), Expires: 11/11/2022 Start: 09-11-2022 End: 11-11-2022 Thyroxine (T4) free [Mass/volume] in Serum or Plasma T4 FREE/FREE THYROX Lab Routine Acquired hypothyroidism Expected: 09/11/2022 (Approximate), Expires: 11/11/2022 [facility] Work Phone: Comment on above: Expected: 09/11/2022 (Approximate), Expires: 11/11/2022 Start: 09-11-2022 End: 11-11-2022 Triiodothyronine (T3) Free [Mass/volume] in Serum or Plasma T3 FREE BLD Lab Routine Acquired hypothyroidism Expected: 09/11/2022 (Approximate), Expires: 11/11/2022 [facility] Work Phone: Comment on above: Expected: 09/11/2022 (Approximate), Expires: 11/11/2022 Start: 07-06-2022 Adult depression screening assessment DEPRESSION SCREENING [facility] Start: 07-06-2022 ANNUAL PCP TEAM GALLEY BOY KELLEY DISEASE VISIT ANNUAL PCP TEAM CHRONIC DISEASE VISIT [facility] Start: 07-06-2022 COVID-19 VACCINE (#1) COVID-19 VACCI NE (#1) [facility] Comment on above: Postponed from 03/21 (Declined at this time) Postponed from 09/18 (Declined at this time) Start: 02-12-2022 DEPRESSION ASSESSMENT DEPRESSION ASS ESSMENT [facility] Start: 10-13-2021 Influenza vaccination C [facility] Start: 07-06-2021 End: 09-05-2021 T3 FREE BLD [facility] Work Phone: Comment on above: Expected: 07/06/2021 , Expires: 09/05/2021 Start: 07-06-2021 End: 09-05-2021 T4 FREE/FREE THYROX [facility] Work Phone: Comment on above: Expected: 07/06/2021 , Expires: 09/05/2021 Start: 07-06-2021 End: 09-05-2021 THYROID PEROXIDASE ANTIBODY BLOOD [facility] Work Phone: Comment on above: Expected: 07/06/2021 , Expires: 09/05/2021 Start: 07-06-2021 End: 09-05-2021 Thyrotropin [Units/volume] in Serum or Plasma [facility] Work Phone: Comment on above: Expected: 07/06/2021 , Expires: 09/05/2021 Start: 05-02-2021 End: 07-02-2021 CBC panel - Blood by Automated count CBC Lab Routine Acquired hypothyroidism Expected: 05/02/2021, Expires: 07/02/2021 [facility] Work Phone: Comment on above: Expected: 05/02/2021 , Expires: 07/02/2021 Start: 05-02-2021 End: 07-02-2021 Comprehensive metabolic 2000 panel - Serum or Plasma COMP METABOLIC PANEL Lab Routine Acquired hypothyroidism Expected: 05/02/2021, Expires: 07/02/2021 [facility] Work Phone: Comment on above: Expected: 05/02/2021 , Expires: 07/02/2021 Start: 05-02-2021 End: 07-02-2021 Hemoglobin A1c/Hemoglobin.total in Blood HGB A1C Lab Routine Wellness examination Expected: 05/02/2021, Expires: 07/02/2021 [facility] Work Phone: Comment on above: Expected: 05/02/2021 , Expires: 07/02/2021 Start: 05-02-2021 End: 07-02-2021 LIPID PANEL BASIC LIPID PANEL BASIC Lab Routine Wellness examination Expected: 05/02/2021, Expires: 07/02/2021 [facility] Work Phone: Comment on above: Expected: 05/02/2021 , Expires: 07/02/2021 Start: 05-02-2021 End: 07-02-2021 T3 BLD T3 BLD Lab Routine Wellness examination Expected: 05/02/2021, Expires: 07/02/2021 [facility] Work Phone: Comment on above: Expected: 05/02/2021 , Expires: 07/02/2021 Start: 05-02-2021 End: 07-02-2021 T4 FREE/FREE THYROX T4 FREE/FREE THYROX Lab Routine Wellness examination Expected: 05/02/2021, Expires: 07/02/2021 [facility] Work Phone: Comment on above: Expected: 05/02/2021 , Expires: 07/02/2021 Start: 05-02-2021 End: 07-02-2021 Thyrotropin [Units/volume] in Serum or Plasma TSH BLD Lab Routine Wellness examination Expected: 05/02/2021, Expires: 07/02/2021 [facility] Work Phone: Comment on above: Expected: 05/02/2021 , Expires: 07/02/2021 Start: 05-02-2021 End: 07-02-2021 VITAMIN D 25 HYDROXY VITAMIN D 25 HYDROXY Lab Routine Wellness examination Expected: 05/02/2021, Expires: 07/02/2021 [facility] Work Phone: Comment on above: Expected: 05/02/2021 , Expires: 07/02/2021 Start: 03-26-2021 Screening for malign ant neoplasm of cervix Cervical Cancer Screening [facility] Start: 02-12-2021 DEPRESSION ASSESSMENT DEPRESSION ASS ESSMENT [facility] Start: 10-13-2020 Influenza vaccination INFLUENZA (#1) [facility] Start: 05-29-2020 ANNUAL PCP TEAM GALLEY BOY KELLEY DISEASE VISIT ANNUAL PCP TEAM CHRONIC DISEASE VISIT [facility] Start: 08-08-2019 Adult depression screening assessment DEPRESSION SCREENING [facility] Start: 2019 HPV TESTING HPV TESTING [facility] Start: 12-15-2011 HPV VACCINE (3 - 3-d ose series) HPV VACCINE (3 - 3-dose series) [facility] Start: 11-06-2011 HPV Vaccine (3 - 3-d ose series) HPV Vaccine (3 - 3-dose series) [facility] Start: 2007 Anxiety Screening Anxiety Screening [facility] Start: 2007 Depression Screening Depression Scre ening [facility] Start: 1994 COVID-19 VACCINE (1) COVID-19 VACCIN E (1) [facility] Start: 1989 COVID-19 VACCINE (#1) COVID-19 VACCI NE (#1) [facility] Bacteria identified in Urine by Culture BACTERIAL CULTURE, URINE Microbiology Routine with uncertain dates in first trimester ([facility]) 05/23/2024 9:08 AM EDT [facility] Chlamydia trachomatis+Neisseria gonorrhoeae DNA [Presence] in Unspecified specimen by SAMSON with probe detection GONORRHEA/CHLAMYDIA NAAT Lab Routine with uncertain dates in first trimester ([facility]) 05/23/2024 9:08 AM EDT [facility] End: 02-21-2025 OBSTETRIC ULTRASOUND WHI OBSTETRIC ULTRASOUND I Anc Imaging Routine High-risk , multigravida of advanced maternal age, antepartum (HCC) 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 ([facility]) Class 2 obesity without serious comorbidity with body mass index (BMI) of 37.0 to 37.9 in adult, unspecified obesity type Once per month for 5 Occurrences starting 08/25/2024 until 02/21/2025 [facility] Work Phone: Comment on above: Once per month for 5 Occurrences starting 08/25/2024 until 02/21/2025 PAP TEST PAP TEST Lab Omaira newell Screening for cervical cancer Special screening examination for human papillomavirus (HPV) 05/23/2024 9:08 AM EDT [facility] TRICHOMONAS VAGINALI S NAAT TRICHOMONAS VAGINALIS NAAT Lab Routine Screen for STD (sexually transmitted disease) 05/23/2024 9:08 AM EDT [facility] Immunizations Immunization Date Immunization Notes Care Provider Ivonne bhatt 10-15-2024 RHO(D) immune globul in- IV or IM Lauren Madera APRN.CNP Work Phone: [facility] 05-08-2019 RHO(D) immune globul in- IV or IM Jorge Dobbins MD Work Phone: [facility] 03-26-2018 RHO(D) immune globul in- IV or IM Jorge Dobbins MD Work Phone: [facility] Work Phone: 12-05-2017 influenza virus vaccine, unspecified formulation Jorge Dobbins MD Work Phone: [facility] 12-05-2017 influenza, seasonal, injectable Jorge Dobbins MD Work Phone: [facility] 11-17-2016 influenza virus vaccine, unspecified formulation Jorge Dobbins MD Work Phone: [facility] 11-24-2015 influenza virus vaccine, unspecified formulation Jorge Dobbins MD Work Phone: [facility] 11-27-2014 influenza virus vaccine, unspecified formulation Jorge Dobbins MD Work Phone: [facility] 04-02-2014 RHO(D) immune globul in- IV or IM Jorge Dobbins MD Work Phone: [facility] 03-25-2014 tetanus toxoid, redu gracie diphtheria toxoid, and acellular pertussis vaccine, adsorbed Jorge Dobbins MD Work Phone: [facility] 11-20-2013 influenza, seasonal, injectable Jorge Dobbins MD Work Phone: [facility] Work Phone: 11-20-2012 influenza virus vaccine, whole virus Jorge Dobbins MD Work Phone: [facility] 11-13-2011 influenza virus vaccine, live, attenuated, for intranasal use Jorge Dobbins MD Work Phone: [facility] 08-14-2011 human papilloma viru s vaccine, quadrivalent Jorge Dobbins MD Work Phone: [facility] Work Phone: 05-11-2011 varicella virus vaccine Will tommie Dobbins MD Work Phone: [facility] 12-14-2008 tuberculin skin test ; purified protein derivative solution, intradermal Miguelito Champion DO Work Phone: [facility] 12-01-2008 influenza virus vaccine, unspecified formulation Jorge Dobbins MD Work Phone: [facility] Work Phone: 07-15-2008 tetanus toxoid, redu gracie diphtheria toxoid, and acellular pertussis vaccine, adsorbed Jorge Dobbins MD Work Phone: [facility] 07-07-2008 hepatitis B vaccine, adult dosage Jorge Dobbins MD Work Phone: [facility] Work Phone: 07-07-2008 human papilloma viru s vaccine, quadrivalent Jorge Dobbins MD Work Phone: [facility] Work Phone: 05-10-2008 hepatitis B vaccine, adult dosage Jorge Dobbins MD Work Phone: [facility] Work Phone: 01-27-2008 tuberculin skin test ; purified protein derivative solution, intradermal Miguelito Champion DO Work Phone: [facility] 01-20-2008 tuberculin skin test ; purified protein derivative solution, intradermal Miguelito Champion DO Work Phone: [facility] Payers Date Payer Category Payer Self-pay 2023 Private Health Insurance [id number] 2023 Private Health Insurance [id number] 2021 Unknown [employer] PPO [id number] 2021-Present [phone] [address] [place] [address] PPO [id number] 2018 Unknown [employer] PPO OOS [id number] 2018-Present [phone] [address] [place] [address] PPO [id number] 2018 Unknown [id number] Unknown [id number] Unknown [id number] Social History Date Type Detail Facility Start: 08-14-2011 End: 06-13-2022 Tobacco smoking status CAIS Never smoked tobacco [facility] Start: 04-06-2020 End: 10-29-2024 Alcohol intake Current non-drinker of alcohol (finding) [facility] Start: 05-28-2019 History SDOH Alcohol Frequency 1 [facility] Start: 05-28-2019 History SDOH Alcohol Std Drinks 98 [facility] Start: 10-14-2013 History SDOH Alcohol Comment very rarely, maybe 2x yearly- not when [facility] Start: 05-28-2019 History SDOH Social Connections Phone 5 [facility] Start: 05-28-2019 History SDOH Social Connections Get Together 2 [facility] Start: 05-28-2019 History SDOH Social Connections Judaism 3 [facility] Start: 05-28-2019 History SDOH Physical Activity DPW 0 [facility] Start: 05-28-2019 Education 15 [facility] Start: 1989 Sex Assigned At Female [facility] Start: 03-07-2020 End: 07-06-2021 Exposure to SARS-CoV-2 (event) Not sure [facility] Work Phone: Start: 08-14-2011 End: 06-13-2022 Tobacco use and exposure Smokeless tobacco non-user [facility] Work Phone: Start: 05-28-2019 End: 09-21-2022 History of Social function [facility] Start: 05-28-2019 End: 09-21-2022 Social connection and isolation panel [facility] Do you belong to any clubs or organizations such as anabaptism groups, unions, fraternal or athletic groups, or school groups? Yes [facility] Are you now , , , , never or living with a partner? [facility] How often to you hav e a drink containing alcohol? Never [facility] Start: 01-14-2012 How many standard drinks containing alcohol do you have on a typical day? Patient refused [facility] Do you feel stress - tense, restless, nervous, or anxious, or unable to sleep at night because your mind is troubled all the time - these days [OSQ] Only a little [facility] (I/We) worried wheth er (my/our) food would run out before (I/we) got money to buy more. Never true [facility] Start: 04-22-2018 Gender identity Identifies as female gender (finding) [facility] Start: 04-22-2018 Sexual orientation Heterosexual (finding) [facility] How hard is it for y ou to pay for the very basics like food, housing, medical care, and heating Not very hard [facility] In the past 12 month s, was there a time when you were not able to pay the mortgage or rent on time? No [facility] Start: 04-16-2024 [facility] Do you feel stress - tense, restless, nervous, or anxious, or unable to sleep at night because your mind is troubled all the time - these days [OSQ] Not at all [facility] Goals Date Patient Goal Desired Activity /State Personal health goal Functional Status Date Assessment Result Facility 08-17-2024 Total score [AUDIT-C] 0 08/18/19 25 9:57 AM EDT Shanel Ordoñez [facility] 08-17-2024 How often to you hav e a drink containing alcohol? Never 08/17/2024 9:57 AM EDT Shanel Ordoñez Never [facility] 08-17-2024 Functional status Patient does n ot drink 08/17/2024 9:57 AM EDT Shanel Ordoñez Patient does not drink [facility] 08-17-2024 How often do you hav e 6 or more drinks on 1 occasion? Never 08/17/2024 9:57 AM EDT Shanel Ordoñez Never [facility] 08-21-2014 Are you deaf, or do you have serious difficulty hearing No 08/21/2014 8:49 AM EDT Juliana Huston RN No [facility] 08-21-2014 Are you blind, or do you have serious difficulty seeing, even when wearing glasses No 08/21/2014 8:49 AM Juliana Castro, GILMAR No [facility] 08-21-2014 Do you have serious difficulty walking or climbing stairs No 08/21/2014 8:49 AM Juliana Castro, GILMAR No [facility] 08-21-2014 Do you have difficul ty dressing or bathing No 08/21/2014 8:49 AM JOHANNYT Juliana Huston, GILMAR No [facility] 08-21-2014 Because of a physica l, mental, or emotional condition, do you have difficulty doing errands alone such as visiting a physician's office or shopping No 08/21/2014 8:49 AM JOHANNYT Juliana Huston, GILMAR No [facility] Mental Status Date Assessment Result Facility 08-21-2014 Because of a physica l, mental, or emotional condition, do you have serious difficulty concentrating, remembering, or making decisions No 08/21/2014 8:49 AM Juliana Castro RN No [facility] Clinical Notes 12-19-2018 to 12-25-2024 Telephone Encounter - Juliana Huston RN - 10/29/2024 12:33 PM EDTTelephone Encounter - Juliana Huston RN - 10/29/2024 12:33 PM EDTPatient Kristen Jerez RN - 10/15/2024 4:29 PM EDT Note Date & Type Note Facility 12-25-2024 Note HNO ID: [id number] Author: JOE BOYCE MD Service: ? Author [...] Irregular Interpretation: Reactive SIGNATURE: Joe Boyce DO [facility] 12-24-2024 Note HNO ID: [id number] Author: GERA SINGH, Semaj Service: ? 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 No direct outreach was made. Reason for Outreach Medicaid OB/Peds Care Gaps due: N/A Patient Contacted: Unable or unnecessary to reach patient: buttermaker added Navigation Signature: Gera Singh Population Health Navigator December 24, 2024 7:10 AM [facility] 12-24-2024 Note Patient Outreach (NE TNAV) NENA LEIVA ([id number]) 1990 F Date Time Provider Department 12/24/24 GERA SINGH During your visit today, we recorded the following information about you: Gera Singh 12/24/2024 7:11 AM Signed POPULATION HEALTH NAVIGATION OUTREACH Action/FYI Added buttermaker to the chart through a note. No direct outreach was made. Reason for Outreach Medicaid OB/Peds Care Gaps due: N/A Patient Contacted: Unable or unnecessary to reach patient: [place] buttermaker added Navigation Signature: Gera Singh Population Health Navigator December 24, 2024 7:10 AM Allergies As of Date: 12/24/2024 Noted Allergy Reaction BEES 07/07/2008 7 - Swelling LATEX 07/07/2008 4 - Hives Date Reviewed: 12/18/2024 Reviewed by: Kristen Smith MD - Fully Assessed Reason for Visit: Population Health Navigation Outreach [3910] Cmt: to PCP/OB Prescriptions as of 12/24/2024 - thyroid (CREDIT OPERATIONS PROCESSOR THYROID) 120 mg tablet Take 1 tablet [...] Encounter Status:Closed by GERA SINGH on 12/24/24 [facility] 12-18-2024 Note HNO ID: [id number] Author: KRISTEN SMITH MD Service: ? Author Type: Physician Type: Progress Notes Filed: 12/18/2024 12:18 Note Text: NST SUMMARY PROVIDER ASSESSMENT AND INTERPRETATION Indications for NST: AMA and Obesity Baseline: 145 Variability: Moderate Accelerations: Present 15 X 15 Decelerations: None Interpretation: Reactive SIGNATURE: Kristen Smith MD [facility] 10-29-2024 Telephone encounter Note Order signed and faxed. Juliana Huston RN [facility] 10-29-2024 Miscellaneous Notes Order signed and faxed. Juliana Huston RN Received breast pump RX from [employer]. To DM to sign. Kristen Chang RN documented in this encounter [facility] 10-29-2024 Miscellaneous Notes S: Nena Leiva [...] visit ASSESSMENT/PLAN: 1. 30 weeks gestation of ([facility]) - ICD9: V22.2, ICD10: Z3A.30 (primary diagnosis) 2. Supervision of high risk in second trimester ([facility]) - ICD9: V23.9, ICD10: O09.92 3. Twin with single intrauterine , first trimester, fetus 1 ([facility]) - ICD9: 651.33, ICD10: O31.21X1 4. AMA (advanced maternal age) multigravida 35+, second trimester ([facility]) - ICD9: 659.63, ICD10: O09.522 5. Obesity affecting in second trimester, unspecified obesity type ([facility]) - ICD9: 649.13, ICD10: O99.212 BMI 35 Weekly NSTs at 36 Growth q 4 Kristen Smith MD documented in this encounter [facility] 10-29-2024 Progress note Formatting of t [...] visit ASSESSMENT/PLAN: 1. 30 weeks gestation of ([facility]) - ICD9: V22.2, ICD10: Z3A.30 (primary diagnosis) 2. Supervision of high risk in second trimester ([facility]) - ICD9: V23.9, ICD10: O09.92 3. Twin with single intrauterine , first trimester, fetus 1 ([facility]) - ICD9: 651.33, ICD10: O31.21X1 4. AMA (advanced maternal age) multigravida 35+, second trimester ([facility]) - ICD9: 659.63, ICD10: O09.522 5. Obesity affecting in second trimester, unspecified obesity type (HCC) - ICD9: 649.13, ICD10: O99.212 BMI 35 Weekly NSTs at 36 Growth q 4 Kristen Smith MD [facility] 10-29-2024 Instructions Tasha Carias MA - 10/29/2024 10:57 AM EDT SEQUENTIAL SCREENINGS The [facility] offers sequential screenings for women who [...] It will require an appointment with our healthcare technician. This is not an ultrasound performed [...] the above symptoms, contact our office at [phone] and ask to speak with a nurse. After hours, you can call doctors registry at [phone] OR call [facility] at [phone] and ask to have the doctor radio time salesperson paged. If you consider this an emergency, dial 10-13-8 or go to your nearest emergency department. NEED HELP? Are you dealing with a violent or abusive relationship? Are you a victim of rape or sexual assult? Call [facility] ([place]) 24 hour Crisis Hotline: 494.693.4637 or 300-854-5442. MANUAL Your Guide to a Healthy manual is now on-line. Visit [email or web address] ncyGuide to download your free copy documented in this encounter [facility] 10-29-2024 Telephone encounter Note Received breast pump RX from [employer]. To DM to sign. Kristen Chang, RN [facility] 10-27-2024 Telephone encounter Note See telephone note [facility] Work Phone: 10-27-2024 Miscellaneous Notes See telephone note documented in this encounter [facility] 10-24-2024 Telephone encounter Note Pt. informed via my chart. [facility] Work Phone: 10-24-2024 Miscellaneous Notes Pt. informed via my chart. Please have her increase her dose to 2 tablets 5 days a week and 1 tablet 2 days a week for her CREDIT OPERATIONS PROCESSOR thyroid 120 mg Recheck labs 1 month [...] again. Thanks! Nena documented in this encounter [facility] 10-24-2024 Telephone encounter Note Please have her increase her dose to 2 tablets 5 days a week and 1 tablet 2 days a week for her CREDIT OPERATIONS PROCESSOR thyroid 120 mg Recheck labs 1 month Miguelito Champion DO [facility] 10-24-2024 Telephone encounter Note Please see pt message -- I had labs drawn last week for OBGYN but I think my thyroid labs went to them for review. I just wanted to make sure you had a chance to review them and orders were in for the next time you want me to draw again. Thanks! 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 [facility] 10-15-2024 Note HNO ID: [id number] Author: KRISTEN CHANG RN Service: ? Author [...] her Rhophylac pocket card. Kristen Chang RN [facility] 10-15-2024 History of Present illness Narrative [...] Kristen Chang, RN documented in this encounter [facility] 10-15-2024 Progress note Formatting of t [...] Supervision of high risk in second trimester ([facility]) - ICD9: V23.9, ICD10: O09.92 (primary diagnosis) - Continue PNV and LDA 2. 28 weeks gestation of ([facility]) - ICD9: V22.2, ICD10: Z3A.28 - Growth today, report pending - 1 hour GCT, CBC, and RPR today - Rh negative: Rhogam injection today - Declines TDAP - LARC form reviewed and signed. Declines. - Depression screen negative - plan form discussed and given to Nena - Reviewed how to pre register through [facility] 3. Twin with single intrauterine , first trimester, fetus 1 ([facility]) - ICD9: 651.33, ICD10: O31.21X1 4. AMA (advanced maternal age) multigravida 35+, second trimester ([facility]) - ICD9: 659.63, ICD10: O09.522 - Age 34 at VENICE 5. Obesity affecting in second trimester, unspecified obesity type ([facility]) - ICD9: 649.13, ICD10: O99.212 -Pre BMI 35 - Plan for 32 week growth q 4 weeks. - Weekly NSTs at 36 weeks. Hypothyroidism affecting in second trimester ([facility]) - ICD9: 648.13, 244.9, ICD10: O99.282, E03.9 - Managed by PCP - Continue 120 mg of CREDIT OPERATIONS PROCESSOR Thryoid - Recheck today Rh negative state in antepartum period ([facility]) - ICD9: 646.83, ICD10: O26.899, Z67.91 - Rhogam today PTL precautions and kick counts reviewed. RTO in 2 weeks or sooner as needed. Lauren Madera APRN.INSTRUMENT LENS GRINDER [facility] 10-15-2024 Miscellaneous Notes .EH - S: [...] Supervision of high risk in second trimester ([facility]) - ICD9: V23.9, ICD10: O09.92 (primary diagnosis) - Continue PNV and LDA 2. 28 weeks gestation of ([facility]) - ICD9: V22.2, ICD10: Z3A.28 - Growth today, report pending - 1 hour GCT, CBC, and RPR today - Rh negative: Rhogam injection today - Declines TDAP - LARC form reviewed and signed. Declines. - Depression screen negative - plan form discussed and given to Nena - Reviewed how to pre register through [facility] 3. Twin with single intrauterine , first trimester, fetus 1 ([facility]) - ICD9: 651.33, ICD10: O31.21X1 4. AMA (advanced maternal age) multigravida 35+, second trimester ([facility]) - ICD9: 659.63, ICD10: O09.522 - Age 34 at VENICE 5. Obesity affecting in second trimester, unspecified obesity type ([facility]) - ICD9: 649.13, ICD10: O99.212 -Pre BMI 35 - Plan for 32 week growth q 4 weeks. - Weekly NSTs at 36 weeks. Hypothyroidism affecting in second trimester ([facility]) - ICD9: 648.13, 244.9, ICD10: O99.282, E03.9 - Managed by PCP - Continue 120 mg of CREDIT OPERATIONS PROCESSOR Thryoid - Recheck today Rh negative state in antepartum period ([facility]) - ICD9: 646.83, ICD10: O26.899, Z67.91 - Rhogam today PTL precautions and kick counts reviewed. RTO in 2 weeks or sooner as needed. Lauren Madera APRN.INSTRUMENT LENS GRINDER documented in this encounter [facility] 10-15-2024 Instructions Antelmo Sumner MA - 10/15/2024 2:27 PM EDT SEQUENTIAL SCREENINGS The [facility] offers sequential screenings for women who [...] It will require an appointment with our healthcare technician. This is not an ultrasound performed [...] the above symptoms, contact our office at [phone] and ask to speak with a nurse. After hours, you can call doctors registry at [phone] OR call [facility] at [phone] and ask to have the doctor radio time salesperson paged. If you consider this an emergency, dial 9-1-1 or go to your nearest emergency department. NEED HELP? Are you dealing with a violent or abusive relationship? Are you a victim of rape or sexual assult? Call [facility] ([place]) 24 hour Crisis Hotline: 881.285.9899 or 106-501-5386. MANUAL Your Guide to a Healthy manual is now on-line. Visit [email or web address] ncyGuide to download your free copy documented in this encounter [facility] 10-14-2024 Telephone encounter Note Patient has been identified by name and date of : Patient phones for refill(s): Requested Prescriptions Pending Prescriptions Disp Refills thyroid (CREDIT OPERATIONS PROCESSOR THYROID) 120 mg tablet Sig: Take 1 tablet PO 3 days a week and 2 tablets PO 4 days a week Date of last office visit in primary care: 08/23/2024 Date of next office visit in primary care: Visit date not found Please advise. Thank you. Lisa León LPN. [facility] Work Phone: 10-14-2024 Miscellaneous Notes Patient has been identified by name and date of : Patient phones for refill(s): Requested Prescriptions Pending Prescriptions Disp Refills thyroid (CREDIT OPERATIONS PROCESSOR THYROID) 120 mg tablet Sig: Take 1 tablet PO 3 days a week and 2 tablets PO 4 days a week Date of last office visit in primary care: 08/23/2024 Date of next office visit in primary care: Visit date not found Please advise. Thank you. Lisa León LPN. documented in this encounter [facility] 08-25-2024 Progress note Formatting of t his note might be different from the original. SW- pt doing well. No pain, vb, lof PE: Gen- NAD, well appearing See flowsheet A/p 20 wk gestation - Anatomy US today and final report pending - Thyroid labs today - Cont LDA - RTO 4 wks Joe Boyce DO [facility] 08-25-2024 Miscellaneous Notes SW- pt doing well. No pain, vb, lof PE: Gen- NAD, well appearing See flowsheet A/p 20 wk gestation - Anatomy US today and final report pending - Thyroid labs today - Cont LDA - RTO 4 wks Joe Boyce DO documented in this encounter [facility] 08-23-2024 Note HNO ID: [id number] Author: MIGUELITO CHAMPION, Service: ? Author Type: Physician Type: Progress Notes Filed: 08/23/2024 10:40 Note Text: CC: Nena Leiva is a 34 year old female who presents to the office for physical HPI: Overall she is doing well She is with a baby girl and due in 20 weeks, she is 20 weeks 3 days and managed by OBGYN in [place]. She has had 3 other successful vaginal births-1 davies, 1 set of twins. She is taking her vitamins at this time. Hypothyroidism, she is taking 120 mg of CREDIT OPERATIONS PROCESSOR thyroid 4 days a week and 240 [...] Function tests in . Thyroid, 2019:29:3:412-420. Moose Lpoez, et al. 2017 Guidelines of the [place] Thyroid Association for the Diagnosis and Management [...] daily. cetirizine (ZYRTEC) 10 mg tablet thyroid (CREDIT OPERATIONS PROCESSOR THYROID) 120 mg tablet Take 1 tablet [...] - Instructed patien (more content not included)... [facility] 08-23-2024 History of Present illness Narrative CC: Nena Leiva is a 34 year old female who presents to the office for physical HPI: Overall she is doing well She is with a baby girl and due in 20 weeks, she is 20 weeks 3 days and managed by OBGYN in [place]. She has had 3 other successful vaginal births-1 davies, 1 set of twins. She is taking her vitamins at this time. Hypothyroidism, she is taking 120 mg of CREDIT OPERATIONS PROCESSOR thyroid 4 days a week and 240 [...] Lopez et al. 2017 Guidelines of the [place] Thyroid Association for the Diagnosis and Management of Thyroid Disease during and the . Thyroid, 2017:27:3:315-389. 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 cetirizine (ZYRTEC) 10 mg tablet thyroid (CREDIT OPERATIONS PROCESSOR THYROID) 120 mg tablet Take 1 tablet [...] in the morning or at bedtime. Increase CREDIT OPERATIONS PROCESSOR thyroid to 240 mg 4 days a [...] agreed with the plan. Miguelito Champion DO [address] [place] [address] documented in this encounter [facility] 08-22-2024 Instructions Tasha Carias MA - 08/22/2024 3:45 PM EDT SEQUENTIAL SCREENINGS The [facility] offers sequential screenings for women who [...] It will require an appointment with our healthcare technician. This is not an ultrasound performed [...] the above symptoms, contact our office at [phone] and ask to speak with a nurse. After hours, you can call doctors registry at [phone] OR call [facility] at [phone] and ask to have the doctor radio time salesperson paged. If you consider this an emergency, dial or go to your nearest emergency department. NEED HELP? Are you dealing with a violent or abusive relationship? Are you a victim of rape or sexual assult? Call [facility] ([place]) 24 hour Crisis Hotline: 122.112.5105 or 100-415-9550. MANUAL Your Guide to a Healthy manual is now on-line. Visit [email or web address] ncyGuide to download your free copy documented in this encounter [facility] 07-25-2024 Progress note Formatting of t [...] RTO in 4 weeks Denae Renteria APRN.CNM [facility] Work Phone: 07-25-2024 Miscellaneous Notes TINO-S: [...] Denae Renteria APRN.CNM documented in this encounter [facility] 07-25-2024 Instructions Mi Bauer MA - 07/25/2024 11:26 AM EDT SEQUENTIAL SCREENINGS The [facility] offers sequential screenings for women who [...] It will require an appointment with our healthcare technician. This is not an ultrasound performed [...] the above symptoms, contact our office at [phone] and ask to speak with a nurse. After hours, you can call doctors registry at [phone] OR call [facility] at [phone] and ask to have the doctor radio time salesperson paged. If you consider this an emergency, dial 9-5 or go to your nearest emergency department. NEED HELP? Are you dealing with a violent or abusive relationship? Are you a victim of rape or sexual assult? Call [facility] ([place]) 24 hour Crisis Hotline: 586.939.1411 or 313-869-3841. MANUAL Your Guide to a Healthy manual is now on-line. Visit [email or web address] ncyGuide to download your free copy documented in this encounter [facility] 07-15-2024 Telephone encounter Note Pt. informed via My chart. [facility] Work Phone: 07-15-2024 Miscellaneous Notes Pt. informed via My chart. Please make sure she knows that her thyroid labs are slightly undercorrected. Recommend increasing CREDIT OPERATIONS PROCESSOR thyroid 120 mg to 2 tablets 3 days a week and 1 tablet 4 days a week, recheck labs in 1 month Miguelito Champion DO documented in this encounter [facility] 07-15-2024 Telephone encounter Note Please make sure she knows that her thyroid labs are slightly undercorrected. Recommend increasing CREDIT OPERATIONS PROCESSOR thyroid 120 mg to 2 tablets 3 days a week and 1 tablet 4 days a week, recheck labs in 1 month Miguelito Champion DO [facility] 07-09-2024 Telephone encounter Note You can add her on that is fine. Thanks, Denae Renteria APRN.CNM [facility] Work Phone: 07-09-2024 Miscellaneous Notes You can add her on that is fine. Thanks, Denae Renteria APRN.CNM 14w0d Patient has her 16 week anatomy on 07/25 at 11:00 AM. Would like to have a visit afterwards. Would you OK with seeing her afterwards with your schedule? You are radio time salesperson. If not, I can offer her 8:00 AM. 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 Kristen Chang RN documented in this encounter [facility] 07-09-2024 Telephone encounter Note 14w0d Patient has her 16 week anatomy on 07/25 at 11:00 AM. Would like to have a visit afterwards. Would you OK with seeing her afterwards with your schedule? You are radio time salesperson. If not, I can offer her 8:00 AM. 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 Kristen Chang, GILMAR [facility] 07-08-2024 Telephone encounter Note Early anatomy ultrasound scheduled. [employer] message sent to patient. Juliana Huston RN [facility] 07-08-2024 Miscellaneous Notes Early anatomy ultrasound scheduled. [employer] message sent to patient. Juliana Huston RN 13w2d Patient needs 16 week anatomy. Placed 6 @ 11 AM on hold. Will need to attach order and officially schedule once order is placed after today's visit with SW. Kristen Chang RN documented in this encounter [facility] 07-04-2024 Telephone encounter Note 13w2d Patient needs 16 week anatomy. Placed 6/ @ 11 AM on hold. Will need to attach order and officially schedule once order is placed after today's visit with SW. Kristen Chang RN [facility] 06-05-2024 Note HNO ID: [id number] Author: WILLIE ECHEVERRIA MD Service: ? Author Type: Physician Type: Progress Notes Filed: 06/05/2024 16:08 Note Text: June 05, 2024 3:23 PM Left message voice mail I was trying to reach her regarding her ultrasound remote read of today. Willie Echeverria MD [facility] 06-05-2024 Note HNO ID: [id number] Author: WILLIE ECHEVERRIA MD Service: ? Author Type: Physician Type: Progress Notes Filed: 06/05/2024 16:08 Note Text: The patient presents for requested ultrasound. Full report available in the Imaging tab in Epic. Willie Echeverria MD [facility] 05-26-2024 Telephone encounter Note Pt sends [...] [facility]. Thank you so much for everything! [facility] 05-26-2024 Miscellaneous Notes Pt sends mychart [...] much for everything! documented in this encounter [facility] 05-26-2024 Telephone encounter Note See TE May 26, 2024 [facility] 05-26-2024 Miscellaneous Notes See TE May 26, 2024 documented in this encounter [facility] 05-26-2024 Telephone encounter Note Pt notified of results via BuscoTurnot. Glo Smith Ma [facility] 05-26-2024 Miscellaneous Notes Pt notified of results via BuscoTurnot. Glo Smith Ma Please give her my congratulations on her ! Please have her increase dose of her thyroid medication as below and recheck labs in 4 weeks after this change Miguelito Champion, DO The following approved medication requests have been transmitted electronically. Requested Prescriptions Signed Prescriptions Disp Refills thyroid (CREDIT OPERATIONS PROCESSOR THYROID) 120 mg tablet 140 tablet 3 [...] your help! Nena documented in this encounter [facility] 05-26-2024 Telephone encounter Note Please give her my congratulations on her ! Please have her increase dose of her thyroid medication as below and recheck labs in 4 weeks after this change Miguelito Champion DO The following approved medication requests have been transmitted electronically. Requested Prescriptions Signed Prescriptions Disp Refills thyroid (CREDIT OPERATIONS PROCESSOR THYROID) 120 mg tablet 140 tablet 3 Sig: Take 1 tablet PO 5 days a week and 2 tablets PO 2 days a week Authorizing Provider: MIGUELITO CHAMPION DO [facility] 05-24-2024 Telephone encounter Note Hi Dr [...] high. Thanks for all your help! Ali [facility] 05-23-2024 Note HNO ID: [id number] Author: ANTELMO SUMNER MA Service: ? Author Type: Nursing Home Assistant Administrator Type: Progress Notes Filed: 05/23/2024 11:52 Note Text: OB point of care ultrasound was performed. See imaging tab for details. Antelmo Sumner MA [facility] 05-23-2024 History of Present illness Narrative OB point of care ultrasound was performed. See imaging tab for details. 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 INITIAL OB ASSESSMENT HPI: Nena is a [...] Status: Partner: Name: Saul Age: 36 Occupation: [employer] Gender: Male PAST MEDICAL HISTORY Diagnosis Date [...] Take 2 capsules by mouth once daily. CREDIT OPERATIONS PROCESSOR THYROID 60 mg tablet TAKE 2 TABLETS [...] discussed with the Patient or Patient's Authorized Creative Specialist. As applicable, any other physician, advance practice provider, medical student, or other health professional student that will be observing or involved in the sensitive examination for educational or training purposes was discussed with the Patient or Authorized Creative Specialist. The Patient or Authorized Creative Specialist has agreed to proceed with the [...] Your guide to a health and the Stone Grader. Reviewed midwifery and inspector outside steam distribution services that are available. 2) Screening: Hemoglobin [...] Shiloh Westfall APRN.CNP documented in this encounter [facility] 05-19-2024 Note HNO ID: [id number] Author: SHILOH WESTFALL APRN.INSTRUMENT LENS GRINDER Service: ? 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 INITIAL OB ASSESSMENT HPI: Nena is a [...] Status: Partner: Name: Saul Age: 37 Occupation: [employer] Gender: Male PAST MEDICAL HISTORY Diagnosis Date Acquired hypothyroidism 01/21/2015 Hypothyroidism 08/05/2012 mastitis Partial molar ([facility]) 03/2018 Rh negative state in antepartum period ([facility]) 11/07/2013 Vitamin D deficiency PAST SURGICAL HISTORY Procedure Laterality Date DILATION AND CURETTAGE DXAND/THER NONOBSTETRIC 03/28/2018 Dilation AND curettage PAST SURGICAL HISTORY OF 05/22 extraction of wisdom teeth Current Outpatient Medications Medication Sig Dispense Refill PNV no.95/ferrous fum/folic ac ( ORAL) Take 2 capsules by mouth once daily. CREDIT OPERATIONS PROCESSOR THYROID 60 mg tablet TAKE 2 TABLETS [...] for: Heartburn, Constipa (more content not included)... [facility] 05-19-2024 Instructions Almita Sawyer LPN - 05/19/2024 3:37 PM EDT Please select the following link to access the [facility] Your Guide to a Healthy . [email or web address] Please select the following link to access the [facility] Your Guide to a Healthy . [email or web address] documented in this encounter [facility] 05-05-2024 Telephone encounter Note Pt. informed via My Chart. [facility] Work Phone: 05-05-2024 Miscellaneous Notes Pt. informed via My Chart. Order placed for thyroid labs Please let her know congratulations!!! Miguelito Champion DO Patient just found out she is . About 5 weeks along. When should she check TSH? She did stop the tirzepatide as soon as she found out she was . documented in this encounter [facility] 05-05-2024 Telephone encounter Note Order placed for thyroid labs Please let her know congratulations!!! Miguelito Champion DO [facility] 05-05-2024 Telephone encounter Note Patient notified and declines to schedule an appointment at this time. Patient states she will just wait to be seen on 05/23. Will call if she changes her mind and would like appointment to have HCG levels done. Juliana Huston RN [facility] 05-05-2024 Miscellaneous Notes Patient notified and [...] Kristen Chang RN documented in this encounter [facility] 05-05-2024 Telephone encounter Note Please have patient make an appointment to review. Can be a virtual this week so we can make sure appropriate follow up as well. Thank you, Denae Renteria APRN.CNM [facility] Work Phone: 05-05-2024 Telephone encounter Note LMP 05/31 Approximately 4w5d Patient has a hx of missed AB and partial molar . Denies cramping or bleeding. Asking for HCG levels for piece of mind. NOB is 05/23/24. Kristen Chang, RN [facility] 05-05-2024 Telephone encounter Note Patient just found out she is . About 5 weeks along. When should she check TSH? She did stop the tirzepatide as soon as she found out she was . [facility] 04-23-2024 Telephone encounter Note Patient has [...] Please advise. Thank you. Lisa León LPN. [facility] Work Phone: 04-23-2024 Miscellaneous Notes Patient [...] Lisa León LPN. documented in this encounter [facility] 04-14-2024 Telephone encounter Note See update from pt regarding thyroid dosage. Is requesting refill to be sent to Mail order, this has been pended. Update pt via Mammotome once this has been sent. Romina Wells MA [facility] 04-14-2024 Miscellaneous Notes See update from pt regarding thyroid dosage. Is requesting refill to be sent to Mail order, this has been pended. Update pt via WaveRxhart once this has been sent. Romina Wells MA Sent pt Mammotome message notifying her we've attempted to reach her by phone with messages left requesting a call back. Sent Mammotome message with results and recommendations below from [...] medication just slightly. Thank you, Karentim Azar APRN.INSTRUMENT LENS GRINDER documented in this encounter [facility] 04-14-2024 Progress note Formatting of t his note might be different from the original. Sent pt mychart message notifying her we've attempted to reach her by phone with messages left requesting a call back. Sent mychart message with results and recommendations below from Provider. Asked pt to update office with how she would like to proceed. Wait pt response. Romina Wells MA [facility] 04-08-2024 Telephone encounter Note Left a message for pt to call the office and ask to speak to a nurse. Renetta Sawyer LPN [facility] 04-07-2024 Telephone encounter Note Lft message to return call. [facility] 04-07-2024 Telephone encounter Note Please call patient and let her know that thyroid labs are improved. TSH is now WNL. However, there is still room to improve this, especially with T3 low now. See how patient is feeling and if symptomatic still. IF so, we can increase dosage of medication just slightly. Thank you, Karen Azar APRN.INSTRUMENT LENS GRINDER [facility] 03-19-2024 Telephone encounter Note Pt. informed via My Chart [facility] Work Phone: 03-19-2024 Miscellaneous Notes Pt. informed via My Chart I am not aware of any of this information with the [facility] pharmacy Recommend that she calls and asks [...] one more refill at the [facility] I will be able to burr picker for the month of March. Thank you for all you do! Ali documented in this encounter [facility] 03-18-2024 Telephone encounter Note I am not aware of any of this information with the [facility] pharmacy Recommend that she calls and asks the pharmacy specifically any questions Miguelito Champion DO [facility] 03-11-2024 Telephone encounter Note Please see [...] one more refill at the [facility] [place] I will be able to burr picker for the month of March. Thank you for all you do! Ali [facility] 03-11-2024 Telephone encounter Note Transitioned to TE per provider preference. SHON Chavez [facility] 03-11-2024 Miscellaneous Notes Transitioned to TE per provider preference. SHON Chavez documented in this encounter [facility] 02-18-2024 Telephone encounter Note Pt notified of results via Mammotome. Glo Smith Ma [facility] 02-18-2024 Miscellaneous Notes Pt notified of results via WaveRxhart. Glo Smith Ma Left message to return call. Go ahead and increase to 2.5 tablets 1-2 days per week. And let me know in 4-6 weeks how you are feeling. We can repeat labs then. Thank you, Karen Azar APRN.INSTRUMENT LENS GRINDER Please see pt message - I would [...] she is feeling. Thank you, Karen Azar APRN.INSTRUMENT LENS GRINDER documented in this encounter [facility] 02-15-2024 Telephone encounter Note Left message to return call. [facility] 02-15-2024 Telephone encounter Note Go ahead and increase to 2.5 tablets 1-2 days per week. And let me know in 4-6 weeks how you are feeling. We can repeat labs then. Thank you, Karen Azar APRN.INSTRUMENT LENS GRINDER [facility] 02-14-2024 Telephone encounter Note Please see pt message - I would say overall I feel better than a few months ago but I have noticed hair loss, feeling some fatigue and a lower sex drive than what I would consider normal for me. I wouldn t be opposed to slightly changing things around to see if that improves? Thanks! Ali [facility] 02-14-2024 Telephone encounter Note Pt informed via message Crystal Giraldo MA [facility] 02-14-2024 Telephone encounter Note Please call patient and let her know that thyroid labs are greatly improved from 2 months ago. T3 and T4 are normal, however TSH is still slightly elevated. No change in regimen unless pt is symptomatic. Please see how she is feeling. Thank you, Karen Azar APRN.INSTRUMENT LENS GRINDER [facility] 01-16-2024 Telephone encounter Note Turned into TE Crystal Giraldo MA [facility] 01-16-2024 Miscellaneous Notes Turned into TE Crystal Giraldo MA documented in this encounter [facility] 12-20-2023 Telephone encounter Note Left a detailed message that prescription was sent to the pharmacy and the dose was increased. Renetta Sawyer LPN [facility] 12-20-2023 Miscellaneous Notes Left a detailed [...] tirzepatide [facility] to [facility] [place]. I have probably enough for one more week on the 7.5 mg dose. Scale still not changing (ranging 214-216 since 10/10/23) but I can wait to increase the dose if that s what you prefer since I ve only been back on the increased dose of CREDIT OPERATIONS PROCESSOR thyroid for about 3 weeks now. Just let me know! Thanks! Ali documented in this encounter [facility] 12-19-2023 Telephone encounter Note Okay to increase dose as below rx sent to pharmacy Miguelito Champion DO The following approved medication requests have been transmitted electronically. Requested Prescriptions Signed Prescriptions Disp Refills tirzepatide (MOUNJARO) 10 mg/0.5 mL pen injector 3 mL 3 Sig: Inject 10 mg subcutaneously one time a week. Authorizing Provider: MIGUELITO CHAMPION DO [facility] 12-19-2023 Telephone encounter Note Patient sent message check on status Any updates on the new script being sent over? I m using the last of what I have today and the pharmacy has no refills on file. I typically pick it up on Tuesdays and then take it on Wednesdays. I haven t missed a weekly dose since starting in March. Thanks! [facility] 12-12-2023 Telephone encounter Note re there lab orders in for when you d like me to recheck thyroid levels? Also, I will need a new script for the tirzepatide sent to [facility] [place]. I have probably enough for one more week on the 7.5 mg dose. Scale still not changing (ranging 214-216 since 10/10/23) but I can wait to increase the dose if that s what you prefer since I ve only been back on the increased dose of CREDIT OPERATIONS PROCESSOR thyroid for about 3 weeks now. Just let me know! Thanks! Ali [facility] Work Phone: 12-12-2023 Telephone encounter Note See telephone note. [facility] Work Phone: 12-12-2023 Miscellaneous Notes See telephone note. documented in this encounter [facility] 11-23-2023 Telephone encounter Note MC message read 12:11pm on 11/21. Crystal Giraldo MA [facility] 11-23-2023 Miscellaneous Notes MC message read 12:11pm on 11/21. Crystal Giraldo MA Phoned patient left message to return call and ask to speak to a nurse for results. Also sent message on her my chart with results below. Please have her increase her CREDIT OPERATIONS PROCESSOR thyroid to take 2 tablets (120 mg) [...] Thank you! Nena documented in this encounter [facility] 11-22-2023 Telephone encounter Note Phoned patient left message to return call and ask to speak to a nurse for results. Also sent message on her my chart with results below. [facility] 11-21-2023 Telephone encounter Note Please have her increase her CREDIT OPERATIONS PROCESSOR thyroid to take 2 tablets (120 mg) every day in the AM. Lets wait for 1-2 months to see if this helps her weight loss before increasing the GLP1 agonist for weight loss Miguelito Champion DO [facility] 11-21-2023 Telephone encounter Note Please see [...] just let me know! Thank you! Ali [facility] 10-04-2023 Telephone encounter Note Sent to provider via JAVAN Giraldo MA [facility] 10-04-2023 Miscellaneous Notes Sent to provider via JAVAN Giraldo MA documented in this encounter [facility] 09-24-2023 Telephone encounter Note Okay to take rx as below Miguelito Champion DO The following approved medication requests have been transmitted electronically. Requested Prescriptions Signed Prescriptions Disp Refills mebendazole (VERMOX) 100 mg chewable tablet 2 tablet 0 Sig: Take 1 tablet PO once. Repeat dose in 2 weeks Authorizing Provider: MIGUELITO CHAMPION DO [facility] 09-24-2023 Miscellaneous Notes Okay to take [...] Lavonne Meehan RN documented in this encounter [facility] 09-22-2023 Telephone encounter Note Patient calling to request medication for self and family members for pin worm. 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 Advised PCP out of office. Advised EC evaluation for sooner treatment. Lavonne Meehan RN [facility] 08-17-2023 Telephone encounter Note Letter sent to pts home. Closed. [facility] 08-17-2023 Miscellaneous Notes Letter sent to pts home. Closed. 3rd attempt to reach patient. Left message to return call. Crystal Giraldo MA Left message to return call. Left message to return call Crystal Giraldo MA Please inform patient that her labs were off with her free t3 high, normal free t4, high TSH levels. Would like her to cut back to taking CREDIT OPERATIONS PROCESSOR thyroid 120 mg 5 days a week and only 60 mg on 2 days a week Rechecck thyroid labs in 6-8 weeks Also her white blood cell count was slightly high. Would like this rechecked when thyroid labs are rechecked Miguelito Champion DO documented in this encounter [facility] 08-14-2023 Telephone encounter Note 3rd attempt to reach patient. Left message to return call. Crystal Giraldo MA [facility] 08-10-2023 Telephone encounter Note Left message to return call. [facility] 08-08-2023 Telephone encounter Note Left message to return call Crystal Giraldo MA T [facility] 08-08-2023 Telephone encounter Note Please inform patient that her labs were off with her free t3 high, normal free t4, high TSH levels. Would like her to cut back to taking CREDIT OPERATIONS PROCESSOR thyroid 120 mg 5 days a week and only 60 mg on 2 days a week Rechecck thyroid labs in 6-8 weeks Also her white blood cell count was slightly high. Would like this rechecked when thyroid labs are rechecked Miguelito Champion DO T [facility] 07-21-2023 History of Present illness Narrative [...] to have labs rechecked. She is taking CREDIT OPERATIONS PROCESSOR thyroid hormone Vitamin D deficiency, taking supplement [...] once daily. cetirizine (ZYRTEC) 10 mg tablet CREDIT OPERATIONS PROCESSOR THYROID 60 mg tablet TAKE 2 TABLETS [...] in the morning or at bedtime. Continue CREDIT OPERATIONS PROCESSOR thyroid 3. Class 2 obesity with body [...] with the plan. Miguelito Champion DO [address] [place] [address] documented in this encounter [facility] 04-06-2023 Miscellaneous Notes Pt was notified [...] doing amazing! Ali documented in this encounter [facility] 04-02-2023 Miscellaneous Notes The following approved medication requests have been transmitted electronically. Requested Prescriptions Signed Prescriptions Disp Refills CREDIT OPERATIONS PROCESSOR THYROID 60 mg tablet 180 tablet 3 Sig: TAKE 2 TABLETS BY MOUTH EVERY DAY Authorizing Provider: MARK ZAZUETA PA-C Patient has been identified by name and date of : Yes, Provider Miguelito Champion DO Date April 02, 2023 Time 10:23 AM Patient phones for refill(s): Requested Prescriptions Pending Prescriptions Disp Refills CREDIT OPERATIONS PROCESSOR THYROID 60 mg tablet 60 tablet 3 [...] Glo Smith Ma. documented in this encounter [facility] 03-22-2023 Miscellaneous Notes Sent to provider in phone encounter. documented in this encounter [facility] 12-25-2022 Miscellaneous Notes Sent pt a [...] great summer! Ali documented in this encounter [facility] 11-01-2022 Miscellaneous Notes Pt. informed via [...] have resolved now. documented in this encounter [facility] 10-31-2022 Miscellaneous Notes Made into TE documented in this encounter [facility] 10-26-2022 Miscellaneous Notes It appears their was a verbal order given to pharmacy on 10/23/22. TE started and routed to PCP to review and advise. Will keep encounter open to update pt. Romina Wells Ma documented in this encounter [facility] 10-23-2022 Miscellaneous Notes Pharmacy called and now needs to be ordered Thyroid 60 mg. that Verbal order was given. I don't know what rx is available for her to change to. We need to call pharmacy and clarify? [facility] thyroid vs. Nature Thyroid etc Miguelito Champion DO Pt sent Mammotome message today regarding issues with Thyroid medication. On 10/13/22, same medication was sent in it looks like but different dosage. See message below from pt and advise in WaveRxhart message or TE. Message: Hi! I received a text from [employer] saying my thyroid medication was no longer being manufactured as CREDIT OPERATIONS PROCESSOR thyroid and it was needing to be [...] Rx? Thank you! documented in this encounter [facility] 10-13-2022 Miscellaneous Notes Patient phones requesting refills as follows: Pharmacy comment: Alternative Requested:THIS APPEARS TO HAVE DISCONTINUED. SPECIFICALLY THIS BRAND. Requested Prescriptions Pending Prescriptions Disp Refills CREDIT OPERATIONS PROCESSOR THYROID 60 mg tablet [Pharmacy Med Name: CREDIT OPERATIONS PROCESSOR THYROID 60 MG TABLET] 60 tablet 3 Sig: TAKE 2 TABLETS BY MOUTH EVERY DAY Please review and advise. Yanni Evans LPN documented in this encounter [facility] 10-12-2022 Miscellaneous Notes Pt informed via Mammotome message Crystal Giraldo Noted, please make sure she know that this was only 2 weeks before she had her labs checked so not long enough to know if helping yet. Needs to be 6-8 weeks to know if dose change of thyroid medication is helping her levels so no further med change at this time Miguelito Champion DO Please see pt Mammotome message- Hi! When I was in to see Marycarmen a few weeks ago she adjusted my dose to 2 tablets daily. I ve been on a that since she made the change 3rd attempt to contact pt with no answer. Left message to return call. Will also send pt BuscoTurnot message. Crystal Giraldo Left message to return call. Left message for patient to call office back Colleen Mendieta Ma Please inform patient that her TSH is high and free t4 is low normal. Her dose of thyroid hormone needs to be increased. What is she currently taking? Miguelito Champion DO documented in this encounter [facility] 09-29-2022 Miscellaneous Notes Results and provider message sent to patient via [employer] message per patient request. Patient already started [...] to number on form. I recommend increasing CREDIT OPERATIONS PROCESSOR thyroid to 2 tablets every day of the week. This will keep regimen easier as well. Recheck labs in 6 weeks. The rest of lab work looks fantastic! Please also let her know that paperwork for employer physical is filled out. Please fax. This is in my outbox. Thank you, Karen Azar APRN.INSTRUMENT LENS GRINDER See My Chart Message below: I just saw the thyroid labs come through Recommend. I m just messaging to let you [...] Gay Rod RN documented in this encounter [facility] 09-23-2022 Miscellaneous Notes Turned Into Telephone Encounter. documented in this encounter [facility] 09-22-2022 History of Present illness Narrative [...] CONTROL) 300 mg cap Take by mouth. CREDIT OPERATIONS PROCESSOR THYROID 60 mg tablet Take 1 tablet [...] diet of 1000 mg/day for under 50, 2453-3509 mg/day for 50+ - Depression screening tool [...] Patient agreeable to treatment plan. Karen Calles APRN.INSTRUMENT LENS GRINDER [address] [place] [address] documented in this encounter [facility] 08-28-2022 Miscellaneous Notes Copied to phone note. documented in this encounter [facility] 08-08-2022 Miscellaneous Notes Left another message for patient with negative results and recommendations.Dolores Valentin LPN Left message for pt to call back. Amanda Morgan MA ----- Message from Gita Argueta APRN.INSTRUMENT LENS GRINDER sent at 08/06/2022 8:10 AM EDT ----- [...] electronically. Requested Prescriptions Signed Prescriptions Disp Refills CREDIT OPERATIONS PROCESSOR THYROID 60 mg tablet 144 tablet 3 Sig: Take 1 tablet 2 days a week and 2 tablets 5 days a week Authorizing Provider: MIGUELITO CHAMPION DO Images from the original note were not included. Nena Leiva Kunla Wstr Famp My Chart Rx Pool Hi [...] can you send an updated prescription to [facility] so I don t run out? Thank you for all you do! documented in this encounter [facility] 06-26-2022 Miscellaneous Notes Turned into JAVAN Giraldo documented in this encounter [facility] 06-13-2022 History of Present illness Narrative This note was created using Runtasticriter. Subjective Nena Leiva is a 32 year [...] Current Outpatient Medications Medication Sig Dispense Refill CREDIT OPERATIONS PROCESSOR THYROID 60 mg tablet Take 1 tablet [...] Reported on 06/13/2022) Biotin 10,000 mcg cap Snsrpkur-Wa-Cfm-Fe-FA tab Take 1 tablet by mouth. (Patient [...] Paula Lang PA-C documented in this encounter [facility] 04-07-2022 Miscellaneous Notes Pt informed Crystal Giraldo Yes Dr. Champion will take them as patients. They'll likely need to see Karen or myself. Humberto Goldman APRN.INSTRUMENT LENS GRINDER documented in this encounter [facility] 12-09-2021 Miscellaneous Notes Alexandro--07/06/21 Nov--nothing booked Last refill--07/08/21 120 with 2 refills Last labs--07/06/21 documented in this encounter [facility] 07-06-2021 History of Present illness Narrative CC: Nena Leiva is a 31 year old female who presents to the office for physical HPI: Overall she is feeling well. She has been working on her diet and exercise and has lost 50 lbs in the last 2 years after her twins have been born Hypothyroidism, taking CREDIT OPERATIONS PROCESSOR thyroid hormone 2 days a week 2 [...] Son other (Eczema) Son Current Outpatient prescriptions: CREDIT OPERATIONS PROCESSOR THYROID 60 mg Take 1 tablet 5 days a week and 2 tablets 2 days a week naltrexone 4.5 mg capsule Take 4.5 mg by mouth daily at bedtime. Biotin 10,000 mcg cap Wcewikwf-Vb-Zln-Fe-FA ( VITAMIN) tab Take 1 tablet by [...] diet of 1000 mg/day for under 50, 7661-1451 mg/day for 50+ 2. Acquired hypothyroidism - ICD9: 244.9, ICD10: E03.9 - Instructed patient on importance of taking on an empty stomach either first thing in the morning or at bedtime. - check TSH, free T4 and Free T3 today Stable - Continue current medications - TSH BLD - T4 FREE/FREE THYROX - T3 FREE BLD - THYROID PEROXIDASE ANTIBODY BLOOD Miguelito Champion DO To ER if develops chest pain, shortness of breath, or severe worsening of symptoms. Discussed risks, benefits, alternatives, and potential side effects of medications. Patient expressed understanding and agreed with the plan. Miguelito Champion DO [address] [place] [address] THE LAST 2 WEEKS, HAVE YOU BEEN [...] DIFFICULT AT ALL documented in this encounter [facility] 06-15-2021 Miscellaneous Notes Upcoming office visit and blood work this month. Will fill enough to get to this point. The following approved medication requests have been transmitted electronically. Signed Prescriptions Disp Refills CREDIT OPERATIONS PROCESSOR THYROID 60 mg 108 tablet 1 Sig: Take 1 tablet 5 days a week and 2 tablets 2 days a week VIRIDIANA: Yes Authorizing Provider: KAREN CALLES APRN.INSTRUMENT LENS GRINDER Patient has been identified by name and date of : Yes Patient only has a few left of medication, see Mammotome message. Patient phones for refill(s): Pending Prescriptions Disp Refills CREDIT OPERATIONS PROCESSOR THYROID 60 MG TABLET 108 tablet 1 Sig: Take 1 tablet 5 days a week and 2 tablets 2 days a week VIRIIDANA: Yes Date of last office visit in primary care: 05/30/19 Please advise. Thank you. Dolores Layton LPN documented in this encounter [facility] 05-23-2021 Miscellaneous Notes The following approved medication requests have been transmitted electronically. Signed Prescriptions Disp Refills CREDIT OPERATIONS PROCESSOR THYROID 60 mg 108 tablet 1 Sig: Take 1 tablet 5 days a week and 2 tablets 2 days a week VIRIDIANA: Yes Authorizing Provider: KAREN CALLES Ordering User: HUMBERTO GOLDMAN APRN.CNP alexandro-- 05/30/19 Last refill 05/18/21 33 with 0 refills documented in this encounter [facility] 05-18-2021 Miscellaneous Notes The following approved medication requests have been transmitted electronically. Signed Prescriptions Disp Refills CREDIT OPERATIONS PROCESSOR THYROID 60 mg 34 tablet 0 Sig: Take 1 tablet 5 days a week and 2 tablets 2 days a week VIRIDIANA: Yes Authorizing Provider: KAREN CALLES APRN.CNP .Spoke with patient. Given message from provider's office. Patient verbalizes understanding. She is taking CREDIT OPERATIONS PROCESSOR Thyroid as prescribed in note below. Please send new script to [facility]. Lavonne Meehan RN left with patient to contact office for results Crystal Mahajan Ma Please let patient know we got her blood work results. Her TSH is very elevated. Please clarify that she is taking CREDIT OPERATIONS PROCESSOR thyroid 60 mg 6x/week and 2 tablets [...] Karen Calles APRN.CNP documented in this encounter [facility] 05-04-2021 Miscellaneous Notes Reminded of lab work by my chart. Remind patient that she needs blood work from 05/02 prior to any additional refills. The following approved medication requests have been transmitted electronically. Pending Prescriptions Disp Refills CREDIT OPERATIONS PROCESSOR THYROID 60 MG TABLET 28 tablet 0 Sig: Take 1 tablet 1 days a week and 2 tablets 6 days a week VIRIDIANA: Yes Karen Calles APRN.CNP Patient has been identified by name and date of : Yes Patient phones for refill(s): Pending Prescriptions Disp Refills CREDIT OPERATIONS PROCESSOR THYROID 60 MG TABLET 28 tablet 0 Sig: Take 1 tablet 1 days a week and 2 tablets 6 days a week VIRIDIANA: Yes Date of last office visit in primary care: appointment scheduled 07/06/2021 Please advise. Thank you. Dolores Layton LPN documented in this encounter [facility] 05-02-2021 Miscellaneous Notes Pt. informed via My Chart. Lisa León LPN Patient needs routine office visit d/t last visit almost 2 years ago. Blood work placed prior to scheduled appointment. Please assist in making appointment. The following approved medication requests have been transmitted electronically. Signed Prescriptions Disp Refills CREDIT OPERATIONS PROCESSOR THYROID 60 mg 28 tablet 0 Sig: Take 1 tablet 1 days a week and 2 tablets 6 days a week VIRIDIANA: Yes Authorizing Provider: KAREN CALLES APRN.INSTRUMENT LENS GRINDER Patient phones requesting refills as follows: Pending Prescriptions Disp Refills CREDIT OPERATIONS PROCESSOR THYROID 60 MG TABLET 28 tablet 0 Sig: Take 1 tablet 1 days a week and 2 tablets 6 days a week VIRIDIANA: Yes ALEXANDRO-05/30/19 Labs-02/07/21 NOV-none med filled 08/30/20 Please review and advise. Yanni Evans LPN documented in this encounter [facility] 04-06-2020 History of Present illness Narrative [...] 2020 9:49 AM documented in this encounter [facility] 12-19-2018 History of Past i llness [...] and optimal weight gain. Recommended patient see group home counselor to discuss further. Patient will consider. TKRN [...] of this encounter (statuses as of 05/02/2021) [facility] History of Past illness Narrative* Problem [...] and optimal weight gain. Recommended patient see group home counselor to discuss further. Patient will consider. TKRN [...] of this encounter (statuses as of 05/04/2021) [facility] History of Past illness Narrative* Problem [...] and optimal weight gain. Recommended patient see group home counselor to discuss further. Patient will consider. TKRN [...] of this encounter (statuses as of 05/18/2021) [facility] History of Past illness Narrative* Problem [...] and optimal weight gain. Recommended patient see group home counselor to discuss further. Patient will consider. TKRN [...] of this encounter (statuses as of 05/23/2021) [facility] History of Past illness Narrative* Problem [...] and optimal weight gain. Recommended patient see group home counselor to discuss further. Patient will consider. TKRN [...] of this encounter (statuses as of 06/15/2021) [facility] History of Past illness Narrative* Problem [...] and optimal weight gain. Recommended patient see group home counselor to discuss further. Patient will consider. TKRN [...] of this encounter (statuses as of 07/06/2021) [facility] History of Past illness Narrative* Problem [...] and optimal weight gain. Recommended patient see group home counselor to discuss further. Patient will consider. TKRN [...] of this encounter (statuses as of 08/19/2021) [facility] History of Past illness Narrative* Problem [...] and optimal weight gain. Recommended patient see group home counselor to discuss further. Patient will consider. TKRN [...] of this encounter (statuses as of 12/09/2021) [facility] History of Past illness Narrative* Problem [...] and optimal weight gain. Recommended patient see group home counselor to discuss further. Patient will consider. TKRN [...] of this encounter (statuses as of 04/07/2022) [facility] History of Past illness Narrative* Problem [...] and optimal weight gain. Recommended patient see group home counselor to discuss further. Patient will consider. TKRN [...] of this encounter (statuses as of 06/14/2022) [facility] History of Past illness Narrative* Problem [...] and optimal weight gain. Recommended patient see group home counselor to discuss further. Patient will consider. TKRN [...] of this encounter (statuses as of 06/26/2022) [facility] History of Past illness Narrative* Problem [...] and optimal weight gain. Recommended patient see group home counselor to discuss further. Patient will consider. TKRN [...] of this encounter (statuses as of 08/08/2022) [facility] History of Past illness Narrative* Problem [...] and optimal weight gain. Recommended patient see group home counselor to discuss further. Patient will consider. TKRN [...] of this encounter (statuses as of 08/28/2022) [facility] History of Past illness Narrative* Problem [...] and optimal weight gain. Recommended patient see group home counselor to discuss further. Patient will consider. TKRN [...] of this encounter (statuses as of 09/22/2022) [facility] History of Past illness Narrative* Problem [...] and optimal weight gain. Recommended patient see group home counselor to discuss further. Patient will consider. TKRN [...] of this encounter (statuses as of 09/23/2022) [facility] History of Past illness Narrative* Problem [...] and optimal weight gain. Recommended patient see group home counselor to discuss further. Patient will consider. TKRN [...] of this encounter (statuses as of 09/30/2022) [facility] History of Past illness Narrative* Problem [...] and optimal weight gain. Recommended patient see group home counselor to discuss further. Patient will consider. TKRN [...] of this encounter (statuses as of 10/02/2022) [facility] History of Past illness Narrative* Problem [...] and optimal weight gain. Recommended patient see group home counselor to discuss further. Patient will consider. TKRN [...] of this encounter (statuses as of 10/13/2022) [facility] History of Past illness Narrative* Problem [...] and optimal weight gain. Recommended patient see group home counselor to discuss further. Patient will consider. TKRN [...] of this encounter (statuses as of 10/13/2022) [facility] History of Past illness Narrative* Problem [...] and optimal weight gain. Recommended patient see group home counselor to discuss further. Patient will consider. TKRN [...] of this encounter (statuses as of 10/23/2022) [facility] History of Past illness Narrative* Problem [...] and optimal weight gain. Recommended patient see group home counselor to discuss further. Patient will consider. TKRN [...] of this encounter (statuses as of 10/26/2022) [facility] History of Past illness Narrative* Problem [...] and optimal weight gain. Recommended patient see group home counselor to discuss further. Patient will consider. TKRN [...] of this encounter (statuses as of 10/31/2022) [facility] History of Past illness Narrative* Problem [...] and optimal weight gain. Recommended patient see group home counselor to discuss further. Patient will consider. TKRN [...] of this encounter (statuses as of 11/02/2022) [facility] History of Past illness Narrative* Problem [...] and optimal weight gain. Recommended patient see group home counselor to discuss further. Patient will consider. TKRN [...] of this encounter (statuses as of 12/26/2022) [facility] History of Past illness Narrative* Problem [...] and optimal weight gain. Recommended patient see group home counselor to discuss further. Patient will consider. TKRN [...] of this encounter (statuses as of 03/22/2023) [facility] History of Past illness Narrative* Problem [...] and optimal weight gain. Recommended patient see group home counselor to discuss further. Patient will consider. TKRN [...] of this encounter (statuses as of 04/02/2023) [facility] History of Past illness Narrative* Problem [...] and optimal weight gain. Recommended patient see group home counselor to discuss further. Patient will consider. TKRN [...] encounter (statuses as of 04/06/2023) [facility]* Diagnosis Wellness examination- Primary Acquired hypothyroidism Unspecified hypothyroidism [facility] Acquired hypothyroidism Unspecified hypothyroidism [...] Wellness examination- Primary documented in this encounter [facility] note* Diagnosis Acquired hypothyroidism Unspecified hypothyroidism documented in this encounter [facility] note* Diagnosis Wellness examination- Primary Acquired hypothyroidism Unspecified hypothyroidism Class 2 obesity with body mass index (BMI) of 37.0 to 37.9 in adult, unspecified obesity type, unspecified whether serious comorbidity present documented in this encounter [facility] note* Diagnosis Acquired hypothyroidism- Primary Unspecified hypothyroidism Leukocytosis, unspecified type documented in this encounter [facility] note* Diagnosis Class 2 obesity with body mass index (BMI) of 37.0 to 37.9 in adult, unspecified obesity type, unspecified whether serious comorbidity present- Primary documented in this encounter [facility] note* Diagnosis Acquired hypothyroidism- Primary Unspecified hypothyroidism documented in this encounter [facility] note* Diagnosis Acquired hypothyroidism Unspecified hypothyroidism documented in this encounter [facility] note* Diagnosis Class 2 obesity with body mass index (BMI) of 37.0 to 37.9 in adult, unspecified obesity type, unspecified whether serious comorbidity present documented in this encounter [facility] note* Diagnosis Hypothyroidism, acquired- Primary Unspecified hypothyroidism documented in this encounter [facility] note* Diagnosis High-risk , multigravida of advanced maternal age, antepartum (HCC)- Primary Twin gestation in first trimester, unspecified multiple gestation type (HCC) 7 weeks gestation of ([facility]) state, incidental with uncertain dates in first trimester ([facility]) Screen for STD (sexually transmitted disease) Screening examination for venereal disease Screening for cervical cancer Screening for malignant neoplasm of the cervix Special screening examination for human papillomavirus (HPV) documented in this encounter [facility] note* Diagnosis Hypothyroidism, acquired- Primary Unspecified hypothyroidism documented in this encounter [facility] note* Diagnosis Twin with single intrauterine , first trimester, fetus 1 (HCC)- Primary 13 weeks gestation of ([facility]) state, incidental Obesity affecting in second trimester, unspecified obesity type (HCC) documented in this encounter [facility] note* Diagnosis screening for malformation using ultrasonics ([facility])- Primary Encounter for routine screening for malformation using ultrasonics Obesity affecting in second trimester, unspecified obesity type (HCC) Twin with single intrauterine , first trimester, fetus 1 (HCC) 16 weeks gestation of ([facility]) state, incidental documented in this encounter [facility]* Diagnosis Supervision of high risk in second trimester ([facility])- Primary Unspecified high-risk 16 weeks gestation of ([facility]) state, incidental Twin with single intrauterine , first trimester, fetus 1 (HCC) Obesity affecting in second trimester, unspecified obesity type ([facility]) AMA (advanced maternal age) multigravida 35+, second trimester ([facility]) Hypothyroidism affecting in second trimester ([facility]) documented in this encounter [facility]* Diagnosis Wellness examination- Primary Screening for depression Encounter for screening examination for other mental health and behavioral disorders Acquired hypothyroidism Unspecified hypothyroidism 20 weeks gestation of ([facility]) state, incidental [facility] Diagnosis Family history of congenital heart defect- Primary Family history of congenital anomalies with uncertain dates in first trimester ([facility]) High-risk , multigravida of advanced maternal age, antepartum ([facility]) 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 ([facility]) Class 2 obesity without serious comorbidity with body mass index (BMI) of 37.0 to 37.9 in adult, unspecified obesity type [facility] Diagnosis Twin with single intrauterine , first trimester, fetus 1 ([facility])- Primary 20 weeks gestation of ([facility]) state, incidental Supervision of high risk in second trimester ([facility]) Unspecified high-risk AMA (advanced maternal age) multigravida 35+, second trimester ([facility]) Obesity affecting in second trimester, unspecified obesity type ([facility]) High-risk , multigravida of advanced maternal age, antepartum ([facility]) documented in this encounter [facility]* Diagnosis Hypothyroidism, acquired- Primary Unspecified hypothyroidism documented in this encounter [facility]* Diagnosis Supervision of high risk in second trimester ([facility])- Primary Unspecified high-risk 28 weeks gestation of ([facility]) state, incidental Twin with single intrauterine , first trimester, fetus 1 ([facility]) AMA (advanced maternal age) multigravida 35+, second trimester (HCC) Obesity affecting in second trimester, unspecified obesity type ([facility]) Hypothyroidism affecting in second trimester ([facility]) Rh negative state in antepartum period (HCC) Rhesus isoimmunization affecting management of mother, antepartum condition High-risk , multigravida of advanced maternal age, antepartum (HCC) documented in this encounter [facility] note* Diagnosis High-risk , multigravida of advanced maternal age, antepartum (HCC) 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 (HCC) Class 2 obesity without serious comorbidity with body mass index (BMI) of 37.0 to 37.9 in adult, unspecified obesity type documented in this encounter [facility] note* Diagnosis Acquired hypothyroidism- Primary Unspecified hypothyroidism documented in this encounter [facility] note* Diagnosis 30 weeks gestation of (HCC)- Primary state, incidental Supervision of high risk in second trimester (HCC) Unspecified high-risk Twin with single intrauterine , first trimester, fetus 1 (HCC) AMA (advanced maternal age) multigravida 35+, second trimester (HCC) Obesity affecting in second trimester, unspecified obesity type (HCC) documented in this encounter [facility] Reason for Referral Specialty Diagnoses / Procedures Referred By Judy cordero Referred To Contact Diagnoses Class 2 obesity with body mass index (BMI) of 37.0 to 37.9 in adult, unspecified obesity type, unspecified whether serious comorbidity present Miguelito Champion, [address] [place] [address] Referral ID Status Reason Start Date Expiration Date Visits Re quested Visits Authorized [id number] Closed 12/19/2023 02/17/2024 1 1 Summary Purpose [...] or prosecute any alcohol or drug abuse patient.[facility] the event this information is protected by the Federal Confidentiality of Alcohol and Drug Abuse Patient Records regulations: The Federal rules restrict any use of the information to criminally investigate or prosecute any alcohol or drug abuse patient.[facility] the event this information is protected by the Federal Confidentiality of Alcohol and Drug Abuse Patient Records regulations: The Federal rules restrict any use of the information to criminally investigate or prosecute any alcohol or drug abuse patient.[facility] the event this information is protected by the Federal Confidentiality of Alcohol and Drug Abuse Patient Records regulations: The Federal rules restrict any use of the information to criminally investigate or prosecute any alcohol or drug abuse patient.[facility] the event this information is protected by the Federal Confidentiality of Alcohol and Drug Abuse Patient Records regulations: The Federal rules restrict any use of the information to criminally investigate or prosecute any alcohol or drug abuse patient.[facility] HospitalIn the event this information is protected by the Federal Confidentiality of Alcohol and Drug Abuse Patient Records regulations: The Federal rules restrict any use of the information to criminally investigate or prosecute any alcohol or drug abuse patient.[facility] HospitalIn the event this information is protected by the Federal Confidentiality of Alcohol and Drug Abuse Patient Records regulations: The Federal rules restrict any use of the information to criminally investigate or prosecute any alcohol or drug abuse patient.[facility] HospitalIn the event this information is protected by the Federal Confidentiality of Alcohol and Drug Abuse Patient Records regulations: The Federal rules restrict any use of the information to criminally investigate or prosecute any alcohol or drug abuse patient.[facility] HospitalIn the event this information is protected by the Federal Confidentiality of Alcohol and Drug Abuse Patient Records regulations: The Federal rules restrict any use of the information to criminally investigate or prosecute any alcohol or drug abuse patient.[facility] HospitalIn the event this information is protected by the Federal Confidentiality of Alcohol and Drug Abuse Patient Records regulations: The Federal rules restrict any use of the information to criminally investigate or prosecute any alcohol or drug abuse patient.[facility] HospitalIn the event this information is protected by the Federal Confidentiality of Alcohol and Drug Abuse Patient Records regulations: The Federal rules restrict any use of the information to criminally investigate or prosecute any alcohol or drug abuse patient.[facility] HospitalIn the event this information is protected by the Federal Confidentiality of Alcohol and Drug Abuse Patient Records regulations: The Federal rules restrict any use of the information to criminally investigate or prosecute any alcohol or drug abuse patient.[facility] HospitalIn the event this information is protected by the Federal Confidentiality of Alcohol and Drug Abuse Patient Records regulations: The Federal rules restrict any use of the information to criminally investigate or prosecute any alcohol or drug abuse patient.[facility] HospitalIn the event this information is protected by the Federal Confidentiality of Alcohol and Drug Abuse Patient Records regulations: The Federal rules restrict any use of the information to criminally investigate or prosecute any alcohol or drug abuse patient.[facility] HospitalIn the event this information is protected by the Federal Confidentiality of Alcohol and Drug Abuse Patient Records regulations: The Federal rules restrict any use of the information to criminally investigate or prosecute any alcohol or drug abuse patient.[facility] HospitalIn the event this information is protected by the Federal Confidentiality of Alcohol and Drug Abuse Patient Records regulations: The Federal rules restrict any use of the information to criminally investigate or prosecute any alcohol or drug abuse patient.[facility] HospitalIn the event this information is protected by the Federal Confidentiality of Alcohol and Drug Abuse Patient Records regulations: The Federal rules restrict any use of the information to criminally investigate or prosecute any alcohol or drug abuse patient.[facility] HospitalIn the event this information is protected by the Federal Confidentiality of Alcohol and Drug Abuse Patient Records regulations: The Federal rules restrict any use of the information to criminally investigate or prosecute any alcohol or drug abuse patient.[facility] HospitalIn the event this information is protected by the Federal Confidentiality of Alcohol and Drug Abuse Patient Records regulations: The Federal rules restrict any use of the information to criminally investigate or prosecute any alcohol or drug abuse patient.[facility] HospitalIn the event this information is protected by the Federal Confidentiality of Alcohol and Drug Abuse Patient Records regulations: The Federal rules restrict any use of the information to criminally investigate or prosecute any alcohol or drug abuse patient.[facility] HospitalIn the event this information is protected by the Federal Confidentiality of Alcohol and Drug Abuse Patient Records regulations: The Federal rules restrict any use of the information to criminally investigate or prosecute any alcohol or drug abuse patient.[facility] HospitalIn the event this information is protected by the Federal Confidentiality of Alcohol and Drug Abuse Patient Records regulations: The Federal rules restrict any use of the information to criminally investigate or prosecute any alcohol or drug abuse patient.[facility] HospitalIn the event this information is protected by the Federal Confidentiality of Alcohol and Drug Abuse Patient Records regulations: The Federal rules restrict any use of the information to criminally investigate or prosecute any alcohol or drug abuse patient.[facility] HospitalIn the event this information is protected by the Federal Confidentiality of Alcohol and Drug Abuse Patient Records regulations: The Federal rules restrict any use of the information to criminally investigate or prosecute any alcohol or drug abuse patient.[facility] HospitalIn the event this information is protected by the Federal Confidentiality of Alcohol and Drug Abuse Patient Records regulations: The Federal rules restrict any use of the information to criminally investigate or prosecute any alcohol or drug abuse patient.[facility] HospitalIn the event this information is protected by the Federal Confidentiality of Alcohol and Drug Abuse Patient Records regulations: The Federal rules restrict any use of the information to criminally investigate or prosecute any alcohol or drug abuse patient.[facility] HospitalIn the event this information is protected by the Federal Confidentiality of Alcohol and Drug Abuse Patient Records regulations: The Federal rules restrict any use of the information to criminally investigate or prosecute any alcohol or drug abuse patient.[facility] HospitalIn the event this information is protected by the Federal Confidentiality of Alcohol and Drug Abuse Patient Records regulations: The Federal rules restrict any use of the information to criminally investigate or prosecute any alcohol or drug abuse patient.[facility] HospitalIn the event this information is protected by the Federal Confidentiality of Alcohol and Drug Abuse Patient Records regulations: The Federal rules restrict any use of the information to criminally investigate or prosecute any alcohol or drug abuse patient.[facility] HospitalIn the event this information is protected by the Federal Confidentiality of Alcohol and Drug Abuse Patient Records regulations: The Federal rules restrict any use of the information to criminally investigate or prosecute any alcohol or drug abuse patient.[facility] HospitalIn the event this information is protected by the Federal Confidentiality of Alcohol and Drug Abuse Patient Records regulations: The Federal rules restrict any use of the information to criminally investigate or prosecute any alcohol or drug abuse patient.[facility] HospitalIn the event this information is protected by the Federal Confidentiality of Alcohol and Drug Abuse Patient Records regulations: The Federal rules restrict any use of the information to criminally investigate or prosecute any alcohol or drug abuse patient.[facility] HospitalIn the event this information is protected by the Federal Confidentiality of Alcohol and Drug Abuse Patient Records regulations: The Federal rules restrict any use of the information to criminally investigate or prosecute any alcohol or drug abuse patient.[facility] HospitalIn the event this information is protected by the Federal Confidentiality of Alcohol and Drug Abuse Patient Records regulations: The Federal rules restrict any use of the information to criminally investigate or prosecute any alcohol or drug abuse patient.[facility] HospitalIn the event this information is protected by the Federal Confidentiality of Alcohol and Drug Abuse Patient Records regulations: The Federal rules restrict any use of the information to criminally investigate or prosecute any alcohol or drug abuse patient.[facility] HospitalIn the event this information is protected by the Federal Confidentiality of Alcohol and Drug Abuse Patient Records regulations: The Federal rules restrict any use of the information to criminally investigate or prosecute any alcohol or drug abuse patient.[facility] HospitalIn the event this information is protected by the Federal Confidentiality of Alcohol and Drug Abuse Patient Records regulations: The Federal rules restrict any use of the information to criminally investigate or prosecute any alcohol or drug abuse patient.[facility] HospitalIn the event this information is protected by the Federal Confidentiality of Alcohol and Drug Abuse Patient Records regulations: The Federal rules restrict any use of the information to criminally investigate or prosecute any alcohol or drug abuse patient.[facility] HospitalIn the event this information is protected by the Federal Confidentiality of Alcohol and Drug Abuse Patient Records regulations: The Federal rules restrict any use of the information to criminally investigate or prosecute any alcohol or drug abuse patient.[facility] HospitalIn the event this information is protected by the Federal Confidentiality of Alcohol and Drug Abuse Patient Records regulations: The Federal rules restrict any use of the information to criminally investigate or prosecute any alcohol or drug abuse patient.[facility] HospitalIn the event this information is protected by the Federal Confidentiality of Alcohol and Drug Abuse Patient Records regulations: The Federal rules restrict any use of the information to criminally investigate or prosecute any alcohol or drug abuse patient.[facility] HospitalIn the event this information is protected by the Federal Confidentiality of Alcohol and Drug Abuse Patient Records regulations: The Federal rules restrict any use of the information to criminally investigate or prosecute any alcohol or drug abuse patient.[facility] HospitalIn the event this information is protected by the Federal Confidentiality of Alcohol and Drug Abuse Patient Records regulations: The Federal rules restrict any use of the information to criminally investigate or prosecute any alcohol or drug abuse patient.[facility] HospitalIn the event this information is protected by the Federal Confidentiality of Alcohol and Drug Abuse Patient Records regulations: The Federal rules restrict any use of the information to criminally investigate or prosecute any alcohol or drug abuse patient.[facility] HospitalIn the event this information is protected by the Federal Confidentiality of Alcohol and Drug Abuse Patient Records regulations: The Federal rules restrict any use of the information to criminally investigate or prosecute any alcohol or drug abuse patient.[facility] HospitalIn the event this information is protected by the Federal Confidentiality of Alcohol and Drug Abuse Patient Records regulations: The Federal rules restrict any use of the information to criminally investigate or prosecute any alcohol or drug abuse patient.[facility] HospitalIn the event this information is protected by the Federal Confidentiality of Alcohol and Drug Abuse Patient Records regulations: The Federal rules restrict any use of the information to criminally investigate or prosecute any alcohol or drug abuse patient.[facility] HospitalIn the event this information is protected by the Federal Confidentiality of Alcohol and Drug Abuse Patient Records regulations: The Federal rules restrict any use of the information to criminally investigate or prosecute any alcohol or drug abuse patient.[facility] HospitalIn the event this information is protected by the Federal Confidentiality of Alcohol and Drug Abuse Patient Records regulations: The Federal rules restrict any use of the information to criminally investigate or prosecute any alcohol or drug abuse patient.[facility] HospitalIn the event this information is protected by the Federal Confidentiality of Alcohol and Drug Abuse Patient Records regulations: The Federal rules restrict any use of the information to criminally investigate or prosecute any alcohol or drug abuse patient.[facility] HospitalIn the event this information is protected by the Federal Confidentiality of Alcohol and Drug Abuse Patient Records regulations: The Federal rules restrict any use of the information to criminally investigate or prosecute any alcohol or drug abuse patient.[facility] HospitalIn the event this information is protected by the Federal Confidentiality of Alcohol and Drug Abuse Patient Records regulations: The Federal rules restrict any use of the information to criminally investigate or prosecute any alcohol or drug abuse patient.[facility] HospitalIn the event this information is protected by the Federal Confidentiality of Alcohol and Drug Abuse Patient Records regulations: The Federal rules restrict any use of the information to criminally investigate or prosecute any alcohol or drug abuse patient.[facility] HospitalIn the event this information is protected by the Federal Confidentiality of Alcohol and Drug Abuse Patient Records regulations: The Federal rules restrict any use of the information to criminally investigate or prosecute any alcohol or drug abuse patient.[facility] HospitalIn the event this information is protected by the Federal Confidentiality of Alcohol and Drug Abuse Patient Records regulations: The Federal rules restrict any use of the information to criminally investigate or prosecute any alcohol or drug abuse patient.[facility] HospitalIn the event this information is protected by the Federal Confidentiality of Alcohol and Drug Abuse Patient Records regulations: The Federal rules restrict any use of the information to criminally investigate or prosecute any alcohol or drug abuse patient.[facility] HospitalIn the event this information is protected by the Federal Confidentiality of Alcohol and Drug Abuse Patient Records regulations: The Federal rules restrict any use of the information to criminally investigate or prosecute any alcohol or drug abuse patient.[facility] HospitalIn the event this information is protected by the Federal Confidentiality of Alcohol and Drug Abuse Patient Records regulations: The Federal rules restrict any use of the information to criminally investigate or prosecute any alcohol or drug abuse patient.[facility] HospitalIn the event this information is protected by the Federal Confidentiality of Alcohol and Drug Abuse Patient Records regulations: The Federal rules restrict any use of the information to criminally investigate or prosecute any alcohol or drug abuse patient.[facility] HospitalIn the event this information is protected by the Federal Confidentiality of Alcohol and Drug Abuse Patient Records regulations: The Federal rules restrict any use of the information to criminally investigate or prosecute any alcohol or drug abuse patient.[facility] HospitalIn the event this information is protected by the Federal Confidentiality of Alcohol and Drug Abuse Patient Records regulations: The Federal rules restrict any use of the information to criminally investigate or prosecute any alcohol or drug abuse patient.[facility] HospitalIn the event this information is protected by the Federal Confidentiality of Alcohol and Drug Abuse Patient Records regulations: The Federal rules restrict any use of the information to criminally investigate or prosecute any alcohol or drug abuse patient.[facility] HospitalIn the event this information is protected by the Federal Confidentiality of Alcohol and Drug Abuse Patient Records regulations: The Federal rules restrict any use of the information to criminally investigate or prosecute any alcohol or drug abuse patient.[facility] HospitalIn the event this information is protected by the Federal Confidentiality of Alcohol and Drug Abuse Patient Records regulations: The Federal rules restrict any use of the information to criminally investigate or prosecute any alcohol or drug abuse patient.[facility] HospitalIn the event this information is protected by the Federal Confidentiality of Alcohol and Drug Abuse Patient Records regulations: The Federal rules restrict any use of the information to criminally investigate or prosecute any alcohol or drug abuse patient.[facility] HospitalIn the event this information is protected by the Federal Confidentiality of Alcohol and Drug Abuse Patient Records regulations: The Federal rules restrict any use of the information to criminally investigate or prosecute any alcohol or drug abuse patient.[facility] HospitalIn the event this information is protected by the Federal Confidentiality of Alcohol and Drug Abuse Patient Records regulations: The Federal rules restrict any use of the information to criminally investigate or prosecute any alcohol or drug abuse patient.[facility] HospitalIn the event this information is protected by the Federal Confidentiality of Alcohol and Drug Abuse Patient Records regulations: The Federal rules restrict any use of the information to criminally investigate or prosecute any alcohol or drug abuse patient.[facility] Reason for Visit (unrecogniz ed section [...] 30-39 MIN MY[facility] PHYSICAL Miguelito Champion, DO [address] [place] [address] Miguelito Champion, [address] [place] [address] Referral ID Status Reason Start Date Expiration Date Visits Re quested Visits Authorized [id number] Closed 02/12/2021 02/11/2022 1 1 Reason Onset [...] Referred By Contac t Referred To Contact [facility] Diagnoses Twin with single intrauterine , first trimester, fetus 1 (HCC) 13 weeks gestation of (HCC) Obesity affecting in second trimester, unspecified obesity type ([facility]) Procedures OBSTETRIC ULTRASOUND WHI US PREG UTERUS AFTER 1ST TRIMEST GESTATION Kristen Smith MD [address] [place] [address] Phone: tel: fax: [place] [phone] Referral ID Status Reason Start Date Expiration Date V isits Requested Visits Authorized [id number] Closed Auto-Generate d Referral 07/08/2024 07/08/2025 1 1 Reason Onset Date Comments Care 07/25/2024 Reason Comments US Specialty Diagnoses / Procedures Referred By Contac t Referred To Contact [facility] Diagnoses with uncertain dates in first trimester ([facility]) Procedures OBSTETRIC ULTRASOUND WHI US PREG UTERUS AFTER 1ST TRIMEST GESTATION Shiloh Westfall APRN.MIKE [address] [facility] [address] Phone: tel: fax: [address] [address] Referral ID Status Reason Start Date Expiration Date V isits Requested Visits Authorized [id number] Closed Auto-Generate d Referral 05/23/2024 05/23/2025 1 1 Reason Onset Date Comments Care 08/22/2024 Reason Onset Date Comments Care 10/15/2024 Specialty Diagnoses / Procedures Referred By Contac t Referred To Contact 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 ([facility]) Class 2 obesity without serious comorbidity with body mass index (BMI) of 37.0 to 37.9 in adult, unspecified obesity type Procedures OBSTETRIC ULTRASOUND WHI US PREG UTERUS AFTER 1ST TRIMEST GESTATION Jossie Gonzales MD [address] [facility] [place] [address] Phone: tel: fax: [place] [phone] [facility] [address] Referral ID Status Reason Start Date Expiration Date V isits Requested Visits Authorized [id number] Closed Auto-Generate d Referral 08/25/2024 08/25/2025 1 1 Reason Onset Date Comments Refill Request 10/11/2024 Reason Onset Date Comments Care 10/29/2024 Reason Comments Breast Pump RX Care Teams (unrecognized sec tion and content) Cold Storage Superintendent Relationship Specialty Start Date End Date Miguelito Champion, DO [address] [facility] [place] [address] PCP - General Family Practice 11/26/15 Cold Storage Superintendent Relationship Specialty Start Date End Date Miguelito Champion DO [address] [facility] [place] [address] PCP - General Family Practice 11/26/15 Cold Storage Superintendent Relationship Specialty Start Date End Date Miguelito Champion DO [address] [facility] [place] [address] PCP - General Family Practice 11/26/15 Cold Storage Superintendent Relationship Specialty Start Date End Date Miguelito Champion DO [address] [facility] [place] [address] PCP - General Family Practice 11/26/15 Cold Storage Superintendent Relationship Specialty Start Date End Date Miguelito Champion DO [address] [facility] [place] [address] PCP - General Family Practice 11/26/15 Cold Storage Superintendent Relationship Specialty Start Date End Date Miguelito Champion DO [address] [facility] [place] [address] PCP - General Family Practice 11/26/15 Cold Storage Superintendent Relationship Specialty Start Date End Date Miguelito Champion DO [address] [place] [address] PCP - General Family Medicine 11/26/15 Cold Storage Superintendent Relationship Specialty Start Date End Date Miguelito Champion [facility] [address] [facility] [place] [address] PCP - General Family Medicine 11/26/15 Cold Storage Superintendent Relationship Specialty Start Date End Date Miguelito Champion DO [address] [place] [address] PCP - General Family Medicine 11/26/15 Cold Storage Superintendent Relationship Specialty Start Date End Date Miguelito Champion DO [address] [place] [address] PCP - General Family Medicine 11/26/15 Cold Storage Superintendent Relationship Specialty Start Date End Date Miguelito Champion DO [address] [place] [address] PCP - General Family Medicine 11/26/15 Cold Storage Superintendent Relationship Specialty Start Date End Date Miguelito Champion DO [address] [place] [address] PCP - General Family Medicine 11/26/15 Cold Storage Superintendent Relationship Specialty Start Date End Date Miguelito Champion DO [address] [place] [address] PCP - General Family Medicine 11/26/15 Cold Storage Superintendent Relationship Specialty Start Date End Date Miguelito Champion DO [address] [place] [address] PCP - General Family Medicine 11/26/15 Cold Storage Superintendent Relationship Specialty Start Date End Date Miguelito Champion DO [address] [place] [address] PCP - General Family Medicine 11/26/15 Cold Storage Superintendent Relationship Specialty Start Date End Date Miguelito Champion DO [address] [facility] [place] [address] PCP - General Family Medicine 11/26/15 Cold Storage Superintendent Relationship Specialty Start Date End Date Miguelito Champion DO [address] [place] [address] PCP - General Family Medicine 11/26/15 Cold Storage Superintendent Relationship Specialty Start Date End Date Miguelito Champion DO [address] [facility] [place] [address] PCP - General Family Medicine 11/26/15 Cold Storage Superintendent Relationship Specialty Start Date End Date Miguelito Champion DO [address] [facility] [place] [address] PCP - General Family Medicine 11/26/15 Cold Storage Superintendent Relationship Specialty Start Date End Date Miguelito Champion DO [address] [facility] [place] [address] PCP - General Family Medicine 11/26/15 Cold Storage Superintendent Relationship Specialty Start Date End Date Miguelito Champion DO [address] [facility] [place] [address] PCP - General Family Medicine 11/26/15 Cold Storage Superintendent Relationship Specialty Start Date End Date Miguelito Champion DO [address] [facility] [place] [address] PCP - General Family Medicine 11/26/15 Cold Storage Superintendent Relationship Specialty Start Date End Date Miguelito Champion DO [address] [place] [address] PCP - General Family Medicine 11/26/15 Cold Storage Superintendent Relationship Specialty Start Date End Date Miguelito Champion DO [address] [facility] [address] PCP - General Family Medicine 11/26/15 Karen Azar, EXPEDITER.INSTRUMENT LENS GRINDER [address] [place] [address] Range Manager [facility] 01/20/24 ManjuHumberto, EXPEDITER.INSTRUMENT LENS GRINDER [address] [place] [address] Range Manager [facility] 01/20/24 Cold Storage Superintendent Relationship Specialty Start Date End Date Miguelito Champion DO [address] [place] [address] PCP - General Family Medicine 11/26/15 Karen Azar, EXPEDITER.INSTRUMENT LENS GRINDER [address] [place] [address] Range Manager [facility] 01/20/24 ManjuHumberto, EXPEDITER.INSTRUMENT LENS GRINDER [address] [place] [address] Range Manager [facility] 01/20/24 Cold Storage Superintendent Relationship Specialty Start Date End Date Miguelito Champion DO [address] [place] [address] PCP - General Family Medicine 11/26/15 Karen Azar, EXPEDITER.INSTRUMENT LENS GRINDER [address] [place] [address] Range Manager [facility] 01/20/24 Humberto Goldman, EXPEDITER.INSTRUMENT LENS GRINDER [address] [facility] [place] [address] [facility] 01/20/24 Cold Storage Superintendent Relationship Specialty Start Date End Date Miguelito Champion DO [address] [facility] [place] [address] PCP - General Family Medicine 11/26/15 Karen Azar, EXPEDITER.INSTRUMENT LENS GRINDER [address] [facility] [place] [address] [facility] 01/20/24 Humberto Goldman, EXPEDITER.INSTRUMENT LENS GRINDER [address] [facility] [place] [place] [address] [facility] 01/20/24 Cold Storage Superintendent Relationship Specialty Start Date End Date Miguelito Champion DO [address] [facility] [place] [address] PCP - General Family Medicine 11/26/15 Karen Azar, EXPEDITER.INSTRUMENT LENS GRINDER [address] [place] [place] [address] [facility] 01/20/24 Humberto Goldman, EXPEDITER.INSTRUMENT LENS GRINDER [address] [facility] [place] [address] [facility] 01/20/24 Cold Storage Superintendent Relationship Specialty Start Date End Date Migueltio Champion DO [address] [place] [place] [address] PCP - General Family Medicine 11/26/15 Karen Azar, EXPEDITER.INSTRUMENT LENS GRINDER [address] [facility] [facility] [place] [address] [facility] 01/20/24 Humberto Goldman, EXPEDITER.INSTRUMENT LENS GRINDER [address] [facility] [facility] [place] [address] Range Manager [facility] 01/20/24 Cold Storage Superintendent Relationship Specialty Start Date End Date Miguelito Champion DO [address] [facility] [place] [address] PCP - General Family Medicine 11/26/15 Humberto Goldman, EXPEDITER.INSTRUMENT LENS GRINDER [address] [place] [address] [facility] 01/20/24 Cold Storage Superintendent Relationship Specialty Start Date End Date Miguelito Champion DO [address] [place] [address] PCP - General Family Medicine 11/26/15 Humberto Goldman, EXPEDITER.INSTRUMENT LENS GRINDER [address] [facility] [place] [address] [facility] 01/20/24 Cold Storage Superintendent Relationship Specialty Start Date End Date Miguelito Champion DO [address] [place] [address] PCP - General Family Medicine 11/26/15 Humberto Goldman, EXPEDITER.INSTRUMENT LENS GRINDER [address] [place] [address] [facility] 01/20/24 Cold Storage Superintendent Relationship Specialty Start Date End Date Miguelito Champion DO [address] [facility] [place] [address] PCP - General Family Medicine 11/26/15 ManjuHumberto, EXPEDITER.INSTRUMENT LENS GRINDER [address] [facility] [place] [address] Range Manager Family [facility] 01/20/24 Cold Storage Superintendent Relationship Specialty Start Date End Date Miguelito Champion DO [address] [facility] [place] [address] PCP - General Family Medicine 11/26/15 ManjuHumberto, EXPEDITER.INSTRUMENT LENS GRINDER [address] [facility] [place] [address] Range Manager [facility] 01/20/24 Cold Storage Superintendent Relationship Specialty Start Date End Date Miguelito Champion DO [address] [facility] [place] [address] PCP - General Family Medicine 11/26/15 ManjuHumberto, EXPEDITER.INSTRUMENT LENS GRINDER [address] [facility] [place] [address] Range Manager [facility] 01/20/24 Cold Storage Superintendent Relationship Specialty Start Date End Date Miguelito Champion DO [address] [facility] [place] [address] PCP - General Family Medicine 11/26/15 ManjuHumberto, EXPEDITER.INSTRUMENT LENS GRINDER [address] [facility] [place] [address] Range Manager Family Medicine 01/20/24 Cold Storage Superintendent Relationship Specialty Start Date End Date Miguelito Champion DO [address] [facility] [place] [address] PCP - General Family Medicine 11/26/15 Humberto Goldman, EXPEDITER.INSTRUMENT LENS GRINDER [address] [facility] [place] [address] Range Manager [facility] 01/20/24 Cold Storage Superintendent Relationship Specialty Start Date End Date Miguelito Champion DO [address] [facility] [place] [address] PCP - General Family Medicine 11/26/15 Humberto Goldman, EXPEDITER.INSTRUMENT LENS GRINDER [address] [facility] [place] [address] Range Manager Family Medicine 01/20/24 Cold Storage Superintendent Relationship Specialty Start Date End Date Miguelito Champion DO [address] [facility] [place] [address] PCP - General Family Medicine 11/26/15 Humberto Goldman, EXPEDITER.INSTRUMENT LENS GRINDER [address] [facility] [place] [address] Range Manager Family Medicine 01/20/24 Kendal Oro, EXPEDITER.INSTRUMENT LENS GRINDER [address] [place] [address] Range Manager Family [facility] 07/28/24 Cold Storage Superintendent Relationship Specialty Start Date End Date Miguelito Champion DO [address] [facility] [place] [address] PCP - General Family Medicine 11/26/15 Humberto Goldman, EXPEDITER.INSTRUMENT LENS GRINDER [address] [place] [address] Range Manager Family Medicine 01/20/24 Kendal Oro, EXPEDITER.INSTRUMENT LENS GRINDER [address] [place] [address] Range Manager Family Medicine 07/28/24 Cold Storage Superintendent Relationship Specialty Start Date End Date Miguelito Chamipon DO [address] [place] [address] PCP - General Family Medicine 11/26/15 Humberto Goldman, EXPEDITER.INSTRUMENT LENS GRINDER [address] [place] [address] Range Manager Family Medicine 01/20/24 Kendal Oro, EXPEDITER.INSTRUMENT LENS GRINDER [address] [place] [address] Range Manager Family Medicine 07/28/24 Cold Storage Superintendent Relationship Specialty Start Date End Date Miguelito Champion DO [address] [place] [address] PCP - General Family Medicine 11/26/15 Humberto Goldman, EXPEDITER.INSTRUMENT LENS GRINDER [address] [place] [address] Range Manager Family Medicine 01/20/24 Kendal Oro, EXPEDITER.INSTRUMENT LENS GRINDER [address] [place] [address] Range Manager Family Medicine 07/28/24 Cold Storage Superintendent Relationship Specialty Start Date End Date Miguelito Champion DO [address] [place] [address] PCP - General Family Medicine 11/26/15 Humberto Goldman, EXPEDITER.INSTRUMENT LENS GRINDER [address] [place] [address] Range Manager Family Medicine 01/20/24 Kendal Oro, EXPEDITER.INSTRUMENT LENS GRINDER [address] [place] [address] Range Manager Family Medicine 07/28/24 Cold Storage Superintendent Relationship Specialty Start Date End Date Miguelito Champion DO [address] [place] [address] PCP - General Family Medicine 11/26/15 Humberto Goldman, EXPEDITER.INSTRUMENT LENS GRINDER [address] [place] [address] Range Manager Family Medicine 01/20/24 Kendal Oro, EXPEDITER.INSTRUMENT LENS GRINDER [address] [place] [address] Range Manager Family Medicine 07/28/24 Cold Storage Superintendent Relationship Specialty Start Date End Date Miguelito Champion DO [address] [place] [address] PCP - General Family Medicine 11/26/15 Humberto Goldman, EXPEDITER.INSTRUMENT LENS GRINDER [address] [place] [address] Range Manager Family Medicine 01/20/24 Kendal Oro, EXPEDITER.INSTRUMENT LENS GRINDER [address] [place] [address] Range Manager Family Medicine 07/28/24 Cold Storage Superintendent Relationship Specialty Start Date End Date Miguelito Champion DO [address] [place], [place] [address] PCP - General Family Medicine 11/26/15 Humberto Goldman, EXPEDITER.INSTRUMENT LENS GRINDER [address] [place], [place] [address] [facility] 01/20/24 Kendal Oro, EXPEDITER.INSTRUMENT LENS GRINDER [address] [place], [place] [address] [facility] 07/28/24 Cold Storage Superintendent Relationship Specialty Start Date End Date Miguelito Champion DO [address] [place] [address] PCP - General Family Medicine 11/26/15 Humberto Goldman, EXPEDITER.INSTRUMENT LENS GRINDER [address] [place] [address] [facility] 01/20/24 Kendal Oro, EXPEDITER.INSTRUMENT LENS GRINDER [address] [place], [place] [address] [facility] 07/28/24 INFORMATION SOURCE (unrecogn ized section and content) DATE CREATED AUTHOR 12/25/2024 [facility] DATE CREATED AUTHOR AUTHOR'S ORGANIZ ATION 12/25/2024 [facility] FOR RECORDS PERTAINING TO PATIENTS WHO [...] BE BASED ON THE PRIMARY CLINICAL RECORDS. [facility] [employer] [facility]. provides no warranty or guarantee of the accuracy or completeness of information in this document.
--- OUTSIDE RECORDS SUMMARY | 2025-01-01 05:29 | XMS RPT_ITS | CCD ---
Author Organization [facility] Care Team Providers Care Healthcare Prof Name Role Phone Miguelito Champion DO Primary Care Provider [phone] Miguelito Champion DO Primary Care Provider Azar HAND FOLDER.TUBE SIZER OPERATORKaren Unavailable Manju HAND FOLDER.TUBE SIZER OPERATORHumberto Unavailable Shorty HAND FOLDER.TUBE SIZER OPERATORKendal Unavailable Denae Renteria Referring Unavailable Champion, Miguelito [...] Latex (1 source) Latex Substance Allergy 9 [facility] (20 sources) Latex; Translations: [LATEX] Propensity to adverse reactions 9 [facility] Work Phone: (20 sources) Bees; Translations: [BEES] Propensity to adverse reactions 9 [facility] Work Phone: (1 source) Latex Drug allergy (disorder) 5 [facility] (1 source) venom-honey bee Drug allergy (disorder) 5 [facility] Medications Current Medications Medication Drug [...] Comment on above: Take 1 capsule by [facility] three times daily for 7 days. cetirizine [...] capsules by mouth once daily. Active thyroid ([facility]) 120 mg oral tablet (20 sources) Start: 10-16-2024 thyroid (DERMATOLOGY TEACHER THYROID) 120 mg tablet Take 1 tablet PO 3 days a week and 2 tablets PO 4 days a week 90 tablet 3 10/16/2024 Active Start: 08-23-2024 End: 10-11-2024 thyroid (DERMATOLOGY TEACHER THYROID) 120 mg tablet Take 1 tablet PO 3 days a week and 2 tablets PO 4 days a week 08/23/2024 10/11/2024 Discontinued Start: 07-15-2024 End: 08-23-2024 thyroid (DERMATOLOGY TEACHER THYROID) 120 mg tablet Take 1 tablet PO 4 days a week and 2 tablets PO 3 days a week 07/15/2024 08/23/2024 Discontinued Start: 05-26-2024 End: 07-15-2024 thyroid (DERMATOLOGY TEACHER THYROID) 120 mg tablet Take 1 tablet PO 5 days a week and 2 tablets PO 2 days a week 140 tablet 3 05/26/2024 07/15/2024 Discontinued Start: 04-02-2023 End: 05-26-2024 take 2 tablets by mouth once daily DERMATOLOGY TEACHER THYROID 60 mg tablet Indications: Acquired hypothyroidism TAKE 2 TABLETS BY MOUTH EVERY DAY 180 tablet 3 04/14/2024 05/26/2024 Discontinued Start: 09-25-2022 End: 03-31-2023 take 2 tablets by mouth once daily DERMATOLOGY TEACHER THYROID 60 mg tablet Indications: Acquired hypothyroidism TAKE 2 TABLETS BY MOUTH EVERY DAY 60 tablet 3 10/13/2022 03/31/2023 Discontinued Start: 07-05-2022 End: 09-25-2022 DERMATOLOGY TEACHER THYROID 60 mg tablet Silvia cations: Acquired hypothyroidism Take 1 tablet 2 days a week and 2 tablets 5 days a week 144 tablet 3 07/05/2022 09/25/2022 Discontinued Start: 07-08-2021 End: 07-05-2022 DERMATOLOGY TEACHER THYROID 60 mg tablet Silvia cations: Acquired hypothyroidism Take 1 tablet 4 days a week and 2 tablets 3 days a week 120 tablet 2 12/09/2021 07/05/2022 Discontinued Start: 05-04-2022 DERMATOLOGY TEACHER THYROID 60 mg Indications: Acquired hypothyroidism Take 1 tablet 5 days a week and 2 tablets 2 days a week 108 tablet 1 06/15/2021 Active Start: 05-23-2021 End: 06-13-2021 DERMATOLOGY TEACHER THYROID 60 mg Indications : Acquired hypothyroidism Take 1 tablet 5 days a week and 2 tablets 2 days a week 108 tablet 1 05/23/2021 06/13/2021 Discontinued Start: 05-18-2021 End: 05-21-2021 DERMATOLOGY TEACHER THYROID 60 mg Indications : Acquired hypothyroidism Take 1 tablet 5 days a week and 2 tablets 2 days a week 34 tablet 0 05/18/2021 05/21/2021 Discontinued Start: 05-02-2021 End: 05-18-2021 DERMATOLOGY TEACHER THYROID 60 mg Indications : Acquired hypothyroidism Take 1 tablet 1 days a week and 2 tablets 6 days a week 28 tablet 0 05/04/2021 05/18/2021 Discontinued Start: 01-14-2020 End: 04-29-2021 DERMATOLOGY TEACHER THYROID 60 mg Indications : Acquired hypothyroidism [...] tablets daily . TAKE 2 TABLETS BY [facility] EVERY DAY Completed/Discontinued Medications Medication Drug Class(es) [...] Take 100 mg by mouth once daily. [id number] 0.3 ml EPINEPHrine 1 mg/ml auto-injector (20 [...] 4.5 mg by mouth daily at bedtime. Pkolafuq-Za-Xuv-Fe-F A ( VITAMIN) tab (9 sources) take 1 tablet by mouth once Cdpeksso-Zd-Ggq-Fe -FA ( VITAMIN) tab Take 1 tablet by mouth. 0 Active Comment on above: Take 1 tablet by yadira th. Tmhrodmp-Wy-Ans-Fe-F A tab (4 sources) End: 08-04-2022 take 1 tablet by mouth once Oxihvufs-Ez-Jpu-Fe -FA tab Take 1 tablet by mouth. 08/04/2022 Discontinued (Course of therapy completed) End: 08-04-2022 take 1 tablet by mouth once Obfhlppd-Kp-Lvc-Fe-FA tab Take 1 tablet by mouth. 0 08/04/2022 Discontinued (Course of therapy completed) take 1 tablet by yadira th once Rpxlwqkw-Gc-Ggs-Fe-FA tab Take 1 tablet by mouth. 0 [...] in second trimester ([facility])] Onset: 07-25-2024 Episodic Other complications of (1 source) Supervision of elderly multigravida, second trimester; Translations: [AMA (advanced maternal age) multigravida 35+, second trimester ([facility])] Onset: 07-25-2024 Episodic Other complications of (1 [...] Range Facil ity CNPRaysa 12-16-2024 CNPN Telephone ([facility]) TEJALNENA ARGUELLO ([id number]) 1990 F Date Time Provider Department 12/16/24 MIGUELITO CHAMPIONWS During your visit today, we recorded the following information about you: Miguelito Champion DO 12/16/2024 11:20 AM Signed Pleas inform patient that her free t4 is still low but slightly improved, TSH is improving. Make sure she is taking her DERMATOLOGY TEACHER thyroid correctly. I know she is getting closer to delivery date. Can try to take 2 extra tablets a week such as extra on Mon and Wed each week of her DERMATOLOGY TEACHER thyroid DO Natasha Skelton Susan LPN 12/16/2024 11:24 AM Signed Pt. informed via My chart Allergies As of Date: 12/16/2024 Noted Allergy Reaction BEES 07/07/2008 7 - Swelling LATEX 07/07/2008 4 - Hives Date Reviewed: 12/11/2024 Reviewed by: Tasah Carias MA - Fully Assessed Prescriptions as of 12/16/2024 - thyroid (DERMATOLOGY TEACHER THYROID) 120 mg tablet Take 1 tablet [...] by LISA LEÓN LPN on 12/16/24 Normal [facility] ROUTINE, GROUP B ST REPTOCOCCUS BY PCRon 12-11-2024 ROUTINE, GROUP B STREPTOCOCCUS BY PCR Not detected Normal [facility] Comment on above: Performed By: #### 7 3752-8, 5195-3, 99824-4 #### [facility] CLIA [id number] [address] [place] [address] [place] T4 Free SerPl-mCncon 025 Free T4 [Mass/Vol] 0.8 ng/dL Low 0.9-1.7 [facility] Comment on above: Order Comment: Speci men Type: BLOOD SPECIMEN Ordering Facility: [facility] Address: [address] [place] [address] Performed By: #### 3 024-7, 3053-6, 3016-3 #### [facility] CLIA [id number] [address] [place] [address] [place] TSH SerPl-aCncon 12-11-2024 TSH Qn 0.335 m[IU]/L Normal 0.270-4.200 [facility] Comment on above: Order Comment: Selam walsh Type: BLOOD SPECIMEN Ordering Facility: [facility] Address: [address] [place] [address] Result Comment: If t he patient is , TSH reference range varies by gestational period: First Trimester (weeks 9-12): 0.180-2.990 mIU/L Second Trimester: 0.110-3.980 mIU/L Third Trimester: 0.480-4.710 mIU/L Homer Caputo et al. A Practical Approach for the Verifications and Determination of Site- and Trimester-Specific Reference Intervals for Thyroid Function tests in . Thyroid, 2019:29:3:412-420. Moose E, et al. 2017 Guidelines of the [place] Thyroid Association for the Diagnosis and Management of Thyroid Disease during and the . Thyroid, 2017:27:3:315-389. Performed By: #### 3 024-7, 3053-6, 3016-3 #### [facility] CLIA [id number] [address] [address] [place] CNPNon 11-13-2024 CNPN Telephone ([facility]) NENA LEIVA ([id number]) 1990 F Date Time Provider Department 11/13/24 [facility] During your visit today, we recorded [...] 11:06 AM Signed Notified of below via [employer]. Glo Smith MA Allergies As of Date: 11/13/2024 Noted Allergy Reaction BEES 07/07/2008 7 - Swelling LATEX 07/07/2008 4 - Hives Date Reviewed: 11/12/2024 Reviewed by: Freya Velazquez MD - Fully Assessed Reason for Visit: Patient Question [1477] Primary Visit Diagnosis:Multinodular goiter [E04.2] Order(s):THYROID STIMULATING HORMONE [SQTSH] Order #: [id number] FUTURE T4 FREE/FREE THYROXINE [SQFT4] Order #: [id number] FUTURE Prescriptions as of 11/18/2024 - thyroid (DERMATOLOGY TEACHER THYROID) 120 mg tablet Take 1 tablet [...] Status:Closed by GLO SMITH on 11/18/24 Normal [facility] T4 Free SerPl-chavo 025 Free T4 [Mass/Vol] 0.7 ng/dL Low 0.9-1.7 [facility] Comment on above: Order Comment: Speci men Type: BLOOD SPECIMEN Ordering Facility: [facility] Address: [address] [place] [address] Performed By: #### 7 3752-8, 5195-3, 93877-1 #### [facility] CLIA [id number] [address] [place] [address] [place] [address] [place] TSH SerPl-aCncon 11-12-2024 TSH Qn 1.580 m[IU]/L Normal 0.270-4.200 [facility] Comment on above: Order Comment: Speci men Type: BLOOD SPECIMEN Ordering Facility: [facility] Address: [address] [place] [address] Result Comment: If t he patient is , TSH reference range varies by gestational period: First Trimester (weeks 9-12): 0.180-2.990 mIU/L Second Trimester: 0.110-3.980 mIU/L Third Trimester: 0.480-4.710 mIU/L Homer Caputo et al. A Practical Approach for the Verifications and Determination of Site- and Trimester-Specific Reference Intervals for Thyroid Function tests in . Thyroid, 2019:29:3:412-420. Moose Lopez, et al. 2017 Guidelines of the [place] Thyroid Association for the Diagnosis and Management of Thyroid Disease during and the . Thyroid, 2017:27:3:315-389. Performed By: #### 7 3752-8, 5195-3, 34612-9 #### [facility] CLIA [id number] [address] [place] [address] STATES OF [facility] CNPRaysa 10-29-2024 CNPN Telephone (OBGY[facility]) NENA LEIVA ([id number]) 1990 F Date Time Provider Department 10/29/24 LIANNA CAPONE OBGYWM During your visit today, we recorded the following information about you: Kristen Chang RN 10/29/2024 10:06 AM Signed Received breast pump RX from [facility]. To DM to sign. GILMAR Cottrell Lindsey, RN 10/29/2024 12:33 PM Signed Order signed and faxed. Juliana Huston RN Allergies As of Date: 10/29/2024 Noted Allergy Reaction BEES 07/07/2008 7 - Swelling LATEX 07/07/2008 4 - Hives Date Reviewed: 10/29/2024 Reviewed by: Kristen Smith MD - Fully Assessed Reason for Visit: Breast Pump RX [Other] Prescriptions as of 10/29/2024 - thyroid (DERMATOLOGY TEACHER THYROID) 120 mg tablet Take 1 tablet [...] Encounter Status:Closed by JULIANA HUSTON on 10/29/24 [facility] LE[facility] ([id number]) 1990 F Date Time Provider Department 10/27/24 MIGUELITO CHAMPION [facility] During your visit today, we [...] tablet 2 days a week for her DERMATOLOGY TEACHER thyroid 120 mg Recheck labs 1 month [...] Date Reviewed: 10/15/2024 Reviewed by: Lauren Madera APRN.TUBE SIZER OPERATOR - Fully Assessed Prescriptions as of 10/30/2024 - thyroid (DERMATOLOGY TEACHER THYROID) 120 mg tablet Take 1 tablet [...] Encounter Status:Closed by PIPER MISTRY on 10/30/24 [facility] Vania 10-24-2024 [facility] NENA LEIVA ([id number]) 1990 F Date Time Provider Department 10/24/24 [facility]IGUELITO CHAMPION [facility] During your visit today, we recorded [...] tablet 2 days a week for her DERMATOLOGY TEACHER thyroid 120 mg Recheck labs 1 month DO Natasha Skelton Susan LPN 10/24/2024 5:09 PM Signed Pt. informed via my chart. Allergies As of Date: 10/24/2024 Noted Allergy Reaction BEES 07/07/2008 7 - Swelling LATEX 07/07/2008 4 - Hives Date Reviewed: 10/15/2024 Reviewed by: Lauren Madera APRN.[facility] - Fully Assessed Primary Visit Diagnosis:Acquired hypothyroidism [E03.9] Order(s):THYROID STIMULATING HORMONE [SQTSH] Order #: [id number] FUTURE T4 FREE/FREE THYROXINE [SQFT4] Order #: [id number] FUTURE Prescriptions as of 10/24/2024 - thyroid (DERMATOLOGY TEACHER THYROID) 120 mg tablet Take 1 tablet [...] by LISA LEÓN LPN on 10/24/24 Normal [facility] Examination level ultrasound on 10-16-2024 [facility] CBC W Auto Differential pane l (Bld)on 10-15-2024 Basophils (Bld) [#/Vol] 0.05 10*3/uL Normal <0.11 [facility] Comment on above: Order Comment: Speci men Type: BLOOD SPECIMEN Ordering Facility: [facility] Address: [address] [place] [address] Performed By: #### 7 3752-8, 5195-3, 88080-7 #### [facility] CLIA [id number] [address] [place] [address] [place] Basophils/100 WBC (Bld) 0.4 % Normal [facility] Comment on above: Order Comment: Speci men Type: BLOOD SPECIMEN Ordering Facility: [facility] Address: [address] [place] [address] Performed By: #### 7 3752-8, 5195-3, 65917-6 #### [facility] CLIA [id number] [address] [place] [address] [place] Differential cell count method Nom (Bld) Auto Normal [facility] Comment on above: Order Comment: Speci men Type: BLOOD SPECIMEN Ordering Facility: [facility] Address: [address] [place] [address] Performed By: #### 7 3752-8, 5195-3, 63342-7 #### [facility] CLIA [id number] [address] [place] [address] [place] Eosinophils (Bld) [#/Vol] 0.16 10*3/uL Normal <0.46 [facility] Comment on above: Order Comment: Speci men Type: BLOOD SPECIMEN Ordering Facility: [facility] Address: [address] [place] [address] Performed By: #### 7 3752-8, 5195-3, 28058-1 #### [facility] CLIA [id number] [address] [place] [address] [place] Eosinophils/100 WBC (Bld) 1.2 % Normal [facility] Comment on above: Order Comment: Speci men Type: BLOOD SPECIMEN Ordering Facility: [facility] Address: [address] [place] [address] Performed By: #### 7 3752-8, 5195-3, 15233-8 #### [facility] CLIA [id number] [address] [place] [address] [place] Erythrocyte distribution width (RBC) [Ratio] 13.1 % Normal 11.5-15.0 [facility] Comment on above: Order Comment: Speci men Type: BLOOD SPECIMEN Ordering Facility: [facility] Address: [address] [place] [address] Performed By: #### 7 3752-8, 5195-3, 54577-2 #### [facility] CLIA [id number] [address] [place] [address] [place] Hematocrit (Bld) [Volume fraction] 36.1 % Normal 36.0-46.0 [facility] Comment on above: Order Comment: Speci men Type: BLOOD SPECIMEN Ordering Facility: [facility] Address: [address] [place] [address] Performed By: #### 7 3752-8, 5195-3, 54580-9 #### [facility] CLIA [id number] [address] [place] [address] [place] Hemoglobin (Bld) [Mass/Vol] 12.5 g/dL Normal 11.5-15.5 [facility] Comment on above: Order Comment: Speci men Type: BLOOD SPECIMEN Ordering Facility: [facility] Address: [address] [place] [address] Performed By: #### 7 3752-8, 5195-3, 77416-1 #### [facility] CLIA [id number] [address] [place] [address] [place] Immature granulocytes (Bld) [#/Vol] 0.08 10*3/uL Normal <0.10 [facility] Comment on above: Order Comment: Speci men Type: BLOOD SPECIMEN Ordering Facility: [facility] Address: [address] [place] [address] Performed By: #### 7 3752-8, 5195-3, 66412-3 #### [facility] CLIA [id number] [address] [place] [address] [place] Immature granulocytes/100 WBC (Bld) 0.6 % Normal [facility] Comment on above: Order Comment: Speci men Type: BLOOD SPECIMEN Ordering Facility: [facility] Address: [address] [place] [address] Performed By: #### 7 3752-8, 5195-3, 30419-8 #### [facility] CLIA [id number] [address] [place] [address] [place] Lymphocytes (Bld) [#/Vol] 2.18 10*3/uL Normal 1.00-4.00 [facility] Comment on above: Order Comment: Speci men Type: BLOOD SPECIMEN Ordering Facility: [facility] Address: [address] [place] [address] Performed By: #### 7 3752-8, 5-3, 56075-3 #### [facility] CLIA [id number] [address] [place] [address] [place] Lymphocytes/100 WBC (Bld) 16.3 % Normal [facility] Comment on above: Order Comment: Speci men Type: BLOOD SPECIMEN Ordering Facility: [facility] Address: [address] [place] [address] Performed By: #### 7 3752-8, 5194-3, 11549-4 #### [facility] CLIA [id number] [address] [place] [address] [place] MCH (RBC) [Entitic mass] 28.4 pg Normal 26.0-34.0 [facility] Comment on above: Order Comment: Speci men Type: BLOOD SPECIMEN Ordering Facility: [facility] Address: [address] [place] [address] Performed By: #### 7 3752-8, 5194-3, 64066-8 #### [facility] CLIA [id number] [address] [place] [address] [place] MCHC (RBC) [Mass/Vol] 34.6 g/dL Normal 30.5-36.0 [facility] Comment on above: Order Comment: Speci men Type: BLOOD SPECIMEN Ordering Facility: [facility] Address: [address] [place] [address] Performed By: #### 7 3752-8, 5194-3, 67612-8 #### [facility] CLIA [id number] [address] [place] [address] [place] MCV (RBC) [Entitic vol] 82.0 fL Normal 80.0-100.0 [facility] Comment on above: Order Comment: Speci men Type: BLOOD SPECIMEN Ordering Facility: [facility] Address: [address] [place] [address] Performed By: #### 7 3752-8, 5194-3, 71197-8 #### [facility] CLIA [id number] [address] [place] [address] [place] Monocytes (Bld) [#/Vol] 0.70 10*3/uL Normal <0.87 [facility] Comment on above: Order Comment: Speci men Type: BLOOD SPECIMEN Ordering Facility: [facility] Address: [address] [place] [address] Performed By: #### 7 3752-8, 5195-3, 95539-2 #### [facility] CLIA [id number] [address] [place] [address] [place] Monocytes/100 WBC (Bld) 5.2 % Normal [facility] Comment on above: Order Comment: Speci men Type: BLOOD SPECIMEN Ordering Facility: [facility] Address: [address] [place] [address] Performed By: #### 7 3752-8, 3, 09028-3 #### [facility] CLIA [id number] [address] [place] [address] [place] Neutrophils (Bld) [#/Vol] 10.21 10*3/uL High 1.45-7.50 [facility] Comment on above: Order Comment: Speci men Type: BLOOD SPECIMEN Ordering Facility: [facility] Address: [address] [place] [address] Performed By: #### 7 3752-8, 3, 29843-0 #### [facility] CLIA [id number] [address] [place] [address] [place] Neutrophils/100 WBC (Bld) 76.3 % Normal [facility] Comment on above: Order Comment: Speci men Type: BLOOD SPECIMEN Ordering Facility: [facility] Address: [address] [place] [address] Performed By: #### 7 3752-8, 5195-3, 45423-2 #### [facility] CLIA [id number] [address] [place] [address] [place] Nucleated RBC (Bld) [#/Vol] 10*3/uL Normal <0.01 [facility] Comment on above: Order Comment: Speci men Type: BLOOD SPECIMEN Ordering Facility: [facility] Address: [address] [place] [address] Performed By: #### 7 3752-8, 5195-3, 62555-0 #### [facility] CLIA [id number] [address] [place] [address] [place] Nucleated RBC/100 WBC (Bld) [Ratio] 0.0 /100 WBC Normal [facility] Comment on above: Order Comment: Speci men Type: BLOOD SPECIMEN Ordering Facility: [facility] Address: [address] [place] [address] Performed By: #### 7 3752-8, 5195-3, 26711-2 #### [facility] CLIA [id number] [address] [place] [address] [place] Platelet mean volume (Bld) [Entitic vol] 9.4 fL Normal 9.0-12.7 [facility] Comment on above: Order Comment: Speci men Type: BLOOD SPECIMEN Ordering Facility: [facility] Address: [address] [place] [address] Performed By: #### 7 3752-8, 5195-3, 83285-9 #### [facility] CLIA [id number] [address] [place] [address] [place] Platelets (Bld) [#/Vol] 213 10*3/uL Normal 150-400 [facility] Comment on above: Order Comment: Speci men Type: BLOOD SPECIMEN Ordering Facility: [facility] Address: [address] [place] [address] Performed By: #### 7 3752-8, 5195-3, 58545-0 #### [facility] CLIA [id number] [address] [place] [address] [place] RBC (Bld) [#/Vol] 4.40 10*6/uL Normal 3.90-5.[address] [facility] Comment on above: Order Comment: Speci men Type: BLOOD SPECIMEN Ordering Facility: [facility] Address: [address] [place] [address] Performed By: #### 7 3752-8, 5195-3, 79580-3 #### [facility] CLIA [id number] [address] [place] [address] [place] WBC (Bld) [#/Vol] 13.38 10*3/uL High 3.70-11.00 [facility] Comment on above: Order Comment: Speci men Type: BLOOD SPECIMEN Ordering Facility: [facility] Address: [address] [place] [address] Performed By: #### 7 3752-8, 5195-3, 27663-9 #### [facility] CLIA [id number] [address] [place] [address] [facility] Examination level ultrasound on 10-15-2024 Radiology Study observation (narrative) [facility] GESTATIONAL GLUCOSE SCREEN, 1-HOUR, 50 GRAM, NON-FASTINGon 10-15-2024 Glucose [Mass/Vol] 129 mg/dL Normal 74-134 [facility] Comment on above: Order Comment: Speci men Type: BLOOD SPECIMEN Ordering Facility: [facility] Address: [address] [place] [address] Result Comment: [facility] Congress of Obstetricians and Gynecologists (Lucas/Harjit) guidelines state a gestational diabetes mellitus positive screen is made, in women not previously diagnosed with overt diabetes, when the 1 hr plasma glucose level is equal to or above 140 mg/dL. The [facility] Driver'S License Reviewing Officer and [facility] [place] recommends a 135 mg/dL cutoff. Performed By: #### 3 024-7, 3053-6, 3016-3 #### [facility] CLIA [id number] [address] [place] [id number] [address] [place] Reagin and Treponema pallidu m IgG and IgM [Interp]on 10-15-2024 T. pallidum IgG+IgM IA Ql (S) Non-Reactive Normal Nonreactive [facility] Comment on above: Order Comment: Speci men Type: BLOOD SPECIMEN Ordering Facility: [facility] Address: [address] [place] [address] Performed By: #### 7 3752-8, 5195-3, 43081-2 #### [facility] CLIA [id number] [address] [place] [address] [place] Reagin+T pallidum IgG+IgM Se rPl-Impon 10-15-2024 Reagin and Treponema pallidum IgG and IgM [Interp] Cannot exclude recent Treponemal infection if specimen collected within 7-10 days after appearance of suspect lesions or 2-3 weeks after an exposure. Clinical correlation is required. Normal [facility] Comment on above: Order Comment: Speci men Type: BLOOD SPECIMEN Ordering Facility: [facility] Address: [address] [place] [address] Performed By: #### 7 3752-8, 5195-3, 19247-7 #### [facility] CLIA [id number] [address] [place] [address] [place] T4 Free SerPl-mCncon 025 Free T4 [Mass/Vol] 0.7 ng/dL Low 0.9-1.7 [facility] Comment on above: Order Comment: Speci men Type: BLOOD SPECIMEN Ordering Facility: [facility] Address: [address] [place] [address] Performed By: #### 3 024-7, 3053-6, 3016-3 #### [facility] CLIA [id number] [address] [place] [address] [place] TSH W/REFLEX FT4on 5 TSH Qn 0.663 m[IU]/L Normal 0.270-4.200 [facility] Comment on above: Order Comment: Speci men Type: BLOOD SPECIMEN Ordering Facility: [facility] Address: [address] [place] [address] Result Comment: If t he patient is , TSH reference range varies by gestational period: First Trimester (weeks 9-12): 0.180-2.990 mIU/L Second Trimester: 0.110-3.980 mIU/L Third Trimester: 0.480-4.710 mIU/L Homer L, et al. A Practical Approach for the Verifications and Determination of Site- and Trimester-Specific Reference Intervals for Thyroid Function tests in . Thyroid, 2019:29:3:412-420. Moose Lopez, et al. 2017 Guidelines of the [place] Thyroid Association for the Diagnosis and Management [...] Lopez et al. 2017 Guidelines of the [place] Thyroid Association for the Diagnosis and Management of Thyroid Disease during and the . Thyroid, 2017:27:3:315-389. Performed By: #### 3 024-7, 3053-6, 3016-3 #### [facility] CLIA [id number] [address] [place], [place] [address] [place] Result Comment: If [...] Lopez et al. 2017 Guidelines of the [place] Thyroid Association for the Diagnosis and Management of Thyroid Disease during and the . Thyroid, 2017:27:3:315-389. TYPE + SCREEN PRENATALon ABO A Normal [facility] Comment on above: Order Comment: Speci men Type: BLOOD SPECIMEN Ordering Facility: [facility] Address: [address] [place] [address] Performed By: #### 7 3752-8, 5195-3, 79361-3 #### [facility] CLIA [id number] [address] [place] [address] [place] Rh Nom (Bld) Negative Normal [facility] Comment on above: Order Comment: Speci men Type: BLOOD SPECIMEN Ordering Facility: [facility] Address: [address] [place] [address] Performed By: #### 7 3752-8, 5195-3, 59635-9 #### [facility] CLIA [id number] [address] [place] [address] [place] TYPE AND SCREEN EXPIRATION 10/18/2024 23:59 Normal [facility] Comment on above: Order Comment: Speci men Type: BLOOD SPECIMEN Ordering Facility: [facility] Address: [address] [place] [address] Performed By: #### 7 3752-8, 5195-3, 91283-3 #### [facility] CLIA [id number] [address] [place] [address] [place] T4 Free SerPl-mCncon 025 Free T4 [Mass/Vol] 0.7 ng/dL Low 0.9-1.7 [facility] Comment on above: Order Comment: Speci men Type: BLOOD SPECIMEN Ordering Facility: [facility] Address: [address] [place] [address] Performed By: #### 7 3752-8, 5195-3, 97759-4 #### [facility] CLIA [id number] [address] [place] [address] [place] TSH SerPl-aCncon 09-19-2024 TSH Qn 1.370 m[IU]/L Normal 0.270-4.200 [facility] Comment on above: Order Comment: Speci men Type: BLOOD SPECIMEN Ordering Facility: [facility] Address: [address] [place] [address] Result Comment: If t he patient is , TSH reference range varies by gestational period: First Trimester (weeks 9-12): 0.180-2.990 mIU/L Second Trimester: 0.110-3.980 mIU/L Third Trimester: 0.480-4.710 mIU/L Homer Caputo et al. A Practical Approach for the Verifications and Determination of Site- and Trimester-Specific Reference Intervals for Thyroid Function tests in . Thyroid, 2019:29:3:412-420. Moose Lopez, et al. 2017 Guidelines of the [place] Thyroid Association for the Diagnosis and Management of Thyroid Disease during and the . Thyroid, 2017:27:3:315-389. Performed By: #### 7 3752-8, 5195-3, 44072-4 #### [facility] CLIA [id number] [address] [place] [address] [place] Examination level ultrasound [...] prior assessment 20 w + 2 d EVNICE by prior assessment: 01/07/2025 Ultrasound examination on: [...] 0 oz EFW by: Hadlock (HC-AC-FL) Extended Glass Ribbon Machine Operator Assistant 5.9 mm CM 3.7 mm 11% Nicolaides [...] normal LVOT view: normal 3-vessel view: normal 2-jgspqq-moufnrn view: normal Heart / Thorax Situs: situs [...] Read By: Jossie Gonzales M.D. MATERNAL MEDICINE [facility] CNOVon 08-23-2024 CNOV Office Visit (FAMPWS ) NENA LEIVA ([id number]) 1990 F Date Time Provider Department 08/23/24 9:00 [facility] today, we recorded [...] 3 days and managed by OBGYN in [place]. She has had 3 other successful vaginal births-1 davies, 1 set of twins. She is taking her vitamins at this time. Hypothyroidism, she is taking 120 mg of DERMATOLOGY TEACHER thyroid 4 days a week and 240 [...] E, et al. 2017 Guidelines of the [place] Thyroid Association for the Diagnosis and Management [...] daily. cetirizine (ZYRTEC) 10 mg tablet thyroid (DERMATOLOGY TEACHER THYROID) 120 mg tablet Take 1 tablet [...] 2. Scre (more content not included)... Normal [facility] Examination level ultrasound on 08-22-2024 Radiology Study observation (narrative) [facility] Free T4 [Mass/Vol]on 025 Interpretation and review of laboratory results Abnormal [facility] No Panel Informationon 08-22 [facility] T4 FREE/FREE THYROXINEon Free T4 [Mass/Vol] 0.7 ng/dL Low 0.9 - 1.7 ng/dL [facility] T4 Free SerPl-mCncon 025 Free T4 [Mass/Vol] 0.7 ng/dL Low 0.9-1.7 [facility] Comment on above: Order Comment: Speci men Type: BLOOD SPECIMEN Ordering Facility: [facility] Address: [address] [place] [address] Performed By: #### 3 024-7, 3053-6, 3016-3 #### [facility] CLIA [id number] [address] [place], [place] [address] [place] [address] [place] THYROID STIMULATING HORMONEo n 08-22-2024 TSH Qn 2.58 m[IU]/L [facility] Comment on above: If the patient is [...] Lopez, et al. 2017 Guidelines of the [place] Thyroid Association for the Diagnosis and Management of Thyroid Disease during and the . Thyroid, 2017:27:3:315-389. TSH Qnon 08-22-2024 Interpretation and review of laboratory results Normal [facility] TSH SerPl-aCncon 08-22-2024 TSH Qn 2.580 m[IU]/L Normal 0.270-4.200 [facility] Comment on above: Order Comment: Speci men Type: BLOOD SPECIMEN Ordering Facility: [facility] Address: [address] [place] [address] Result Comment: If t he patient is , TSH reference range varies by gestational period: First Trimester (weeks 9-12): 0.180-2.990 mIU/L Second Trimester: 0.110-3.980 mIU/L Third Trimester: 0.480-4.710 mIU/L Homer Caputo et al. A Practical Approach for the Verifications and Determination of Site- and Trimester-Specific Reference Intervals for Thyroid Function tests in . Thyroid, 2019:29:3:412-420. Moose Lopez et al. 2017 Guidelines of the [place] Thyroid Association for the Diagnosis and Management of Thyroid Disease during and the . Thyroid, 2017:27:3:315-389. Performed By: #### 3 024-7, 3053-6, 3016-3 #### [facility] CLIA [id number] [address] [place] [address] [place] [address] [place] Examination level ultrasound [...] 6 oz EFW by: Hadlock (HC-AC-FL) Extended Glass Ribbon Machine Operator Assistant 4.7 mm Extremities / Bony Struc FL / HC 0.17 70% Hadlock Other Structures FHR 161 bpm Anatomy Cranium: normal Lateral ventricles: normal Choroid plexus: normal Midline falx: normal Cerebellum: normal Cisterna magna: normal Lips: normal 4-chamber view: normal RVOT view: suboptimally visualized LVOT view: normal 3-vessel view: normal 1-mktedl-nziekgm view: normal Heart / Thorax Diaphragm: normal [...] Read By: Berto Whitley M.D. MATERNAL MEDICINE [facility] Radiology Study observation (narrative) [facility] CNPNon 07-04-2024 CNPN Telephone (OBGYWM) NENA LEIVA ([id number]) 1990 F Date Time Provider Department 07/04/24 [...] 10:02 AM Signed Early anatomy ultrasound scheduled. [facility] message sent to patient. Juliana Huston RN [...] unspecified obesity type (HCC) [O99.212] Order(s):OBSTETRIC ULTRASOUND [facility] [[id number]] Order #: [id number]: 1 FUTURE Prescriptions as of 07/08/2024 - thyroid (DERMATOLOGY TEACHER THYROID) 120 mg tablet Take 1 tablet [...] Status:Closed by JULIANA HUSTON on 07/08/24 Normal [facility] T4 Free SerPl-mCncon 025 Free T4 [Mass/Vol] 0.7 ng/dL Low 0.9-1.7 [facility] Comment on above: Order Comment: Speci men Type: BLOOD SPECIMEN Ordering Facility: [facility] Address: [address] [place] [address] Performed By: #### 3 024-7, 3053-6, 3016-3 #### [facility] CLIA [id number] [address] [place], [place] [address] [place] [address] [place] TSH SerPl-aCncon 07-04-2024 TSH Qn 3.350 m[IU]/L Normal 0.270-4.200 [facility] Comment on above: Order Comment: Speci men Type: BLOOD SPECIMEN Ordering Facility: [facility] Address: [address] [place] [address] Result Comment: If t he patient is , TSH reference range varies by gestational period: First Trimester (weeks 9-12): 0.180-2.990 mIU/L Second Trimester: 0.110-3.980 mIU/L Third Trimester: 0.480-4.710 mIU/L Homer Caputo et al. A Practical Approach for the Verifications and Determination of Site- and Trimester-Specific Reference Intervals for Thyroid Function tests in . Thyroid, 2019:29:3:412-420. Moose Lopez, et al. 2017 Guidelines of the [place] Thyroid Association for the Diagnosis and Management of Thyroid Disease during and the . Thyroid, 2017:27:3:315-389. Performed By: #### 3 024-7, 3053-6, 3016-3 #### [facility] CLIA [id number] [address] [place] [address] [place] CBC W Auto Differential pane l (Bld)on 06-12-2024 Basophils (Bld) [#/Vol] 0.05 10*3/uL Normal <0.11 [facility] Comment on above: Order Comment: Speci men Type: BLOOD SPECIMEN Ordering Facility: [facility] Address: [address] [place] [address] Performed By: #### 7 3752-8, 5195-3, 09836-4 #### [facility] CLIA [id number] [address] [place] [address] [place] Basophils/100 WBC (Bld) 0.6 % Normal [facility] Comment on above: Order Comment: Speci men Type: BLOOD SPECIMEN Ordering Facility: [facility] Address: [address] [place] [address] Performed By: #### 7 3752-8, 5195-3, 17349-9 #### [facility] CLIA [id number] [address] [place] [address] [place] Differential cell count method Nom (Bld) Auto Normal [facility] Comment on above: Order Comment: Speci men Type: BLOOD SPECIMEN Ordering Facility: [facility] Address: [address] [place] [address] Performed By: #### 7 3752-8, 5195-3, 59009-6 #### [facility] CLIA [id number] [address] [place] [address] [place] Eosinophils (Bld) [#/Vol] 0.32 10*3/uL Normal <0.46 [facility] Comment on above: Order Comment: Speci men Type: BLOOD SPECIMEN Ordering Facility: [facility] Address: [address] [place] [address] Performed By: #### 7 3752-8, 5195-3, 89819-6 #### [facility] CLIA [id number] [address] [place] [address] [place] Eosinophils/100 WBC (Bld) 3.6 % Normal [facility] Comment on above: Order Comment: Speci men Type: BLOOD SPECIMEN Ordering Facility: [facility] Address: [address] [place] [address] Performed By: #### 7 3752-8, 5195-3, 04097-8 #### [facility] CLIA [id number] [address] [place] [address] [place] Erythrocyte distribution width (RBC) [Ratio] 12.8 % Normal 11.5-15.0 [facility] Comment on above: Order Comment: Speci men Type: BLOOD SPECIMEN Ordering Facility: [facility] Address: [address] [place] [address] Performed By: #### 7 3752-8, 5195-3, 64462-1 #### [facility] CLIA [id number] [address] [place] [address] [place] Hematocrit (Bld) [Volume fraction] 40.1 % Normal 36.0-46.0 [facility] Comment on above: Order Comment: Speci men Type: BLOOD SPECIMEN Ordering Facility: [facility] Address: [address] [place] [address] Performed By: #### 7 3752-8, 5195-3, 91528-3 #### [facility] CLIA [id number] [address] [place] [address] [place] Hemoglobin (Bld) [Mass/Vol] 13.5 g/dL Normal 11.5-15.5 [facility] Comment on above: Order Comment: Speci men Type: BLOOD SPECIMEN Ordering Facility: [facility] Address: [address] [place] [address] Performed By: #### 7 3752-8, 5195-3, 69598-4 #### [facility] CLIA [id number] [address] [place] [address] [place] Immature granulocytes (Bld) [#/Vol] 0.05 10*3/uL Normal <0.10 [facility] Comment on above: Order Comment: Speci men Type: BLOOD SPECIMEN Ordering Facility: [facility] Address: [address] [place] [address] Performed By: #### 7 3752-8, 5195-3, 43243-6 #### [facility] CLIA [id number] [address] [place] [address] [place] Immature granulocytes/100 WBC (Bld) 0.6 % Normal [facility] Comment on above: Order Comment: Speci men Type: BLOOD SPECIMEN Ordering Facility: [facility] Address: [address] [place] [address] Performed By: #### 7 3752-8, 5195-3, 88669-7 #### [facility] CLIA [id number] [address] [place] [address] [place] Lymphocytes (Bld) [#/Vol] 2.44 10*3/uL Normal 1.00-4.00 [facility] Comment on above: Order Comment: Speci men Type: BLOOD SPECIMEN Ordering Facility: [facility] Address: [address] [place] [address] Performed By: #### 7 3752-8, 5195-3, 75055-3 #### [facility] CLIA [id number] [address] [place] [address] [place] Lymphocytes/100 WBC (Bld) 27.4 % Normal [facility] Comment on above: Order Comment: Speci men Type: BLOOD SPECIMEN Ordering Facility: [facility] Address: [address] [place] [address] Performed By: #### 7 3752-8, 5-3, 68841-6 #### [facility] CLIA [id number] [address] [place] [address] [place] MCH (RBC) [Entitic mass] 27.7 pg Normal 26.0-34.0 [facility] Comment on above: Order Comment: Speci men Type: BLOOD SPECIMEN Ordering Facility: [facility] Address: [address] [place] [address] Performed By: #### 7 3752-8, 5195-3, 28294-9 #### [facility] CLIA [id number] [address] [place] [address] [place] MCHC (RBC) [Mass/Vol] 33.7 g/dL Normal 30.5-36.0 [facility] Comment on above: Order Comment: Speci men Type: BLOOD SPECIMEN Ordering Facility: [facility] Address: [address] [place] [address] Performed By: #### 7 3752-8, 5195-3, 16650-0 #### [facility] CLIA [id number] [address] [place] [address] [place] MCV (RBC) [Entitic vol] 82.3 fL Normal 80.0-100.0 [facility] Comment on above: Order Comment: Speci men Type: BLOOD SPECIMEN Ordering Facility: [facility] Address: [address] [place] [address] Performed By: #### 7 3752-8, 5-3, 46917-2 #### [facility] CLIA [id number] [address] [place] [address] [place] Monocytes (Bld) [#/Vol] 0.54 10*3/uL Normal <0.87 [facility] Comment on above: Order Comment: Speci men Type: BLOOD SPECIMEN Ordering Facility: [facility] Address: [address] [place] [address] Performed By: #### 7 3752-8, 3, 73659-6 #### [facility] CLIA [id number] [address] [place] [address] [place] Monocytes/100 WBC (Bld) 6.1 % Normal [facility] Comment on above: Order Comment: Speci men Type: BLOOD SPECIMEN Ordering Facility: [facility] Address: [address] [place] [address] Performed By: #### 7 3752-8, 3, 22061-4 #### [facility] CLIA [id number] [address] [place] [address] [place] Neutrophils (Bld) [#/Vol] 5.52 10*3/uL Normal 1.45-7.50 [facility] Comment on above: Order Comment: Speci men Type: BLOOD SPECIMEN Ordering Facility: [facility] Address: [address] [place] [address] Performed By: #### 7 3752-8, 3, 92762-1 #### [facility] CLIA [id number] [address] [place] [address] [place] Neutrophils/100 WBC (Bld) 61.7 % Normal [facility] Comment on above: Order Comment: Speci men Type: BLOOD SPECIMEN Ordering Facility: [facility] Address: [address] [place] [address] Performed By: #### 7 3752-8, 3, 86353-9 #### [facility] CLIA [id number] [address] [place] [address] [place] Nucleated RBC (Bld) [#/Vol] 10*3/uL Normal <0.01 [facility] Comment on above: Order Comment: Speci men Type: BLOOD SPECIMEN Ordering Facility: [facility] Address: [address] [place] [address] Performed By: #### 7 3752-8, 5195-3, 79988-5 #### [facility] CLIA [id number] [address] [place] [address] [place] Nucleated RBC/100 WBC (Bld) [Ratio] 0.0 /100 WBC Normal [facility] Comment on above: Order Comment: Speci men Type: BLOOD SPECIMEN Ordering Facility: [facility] Address: [address] [place] [address] Performed By: #### 7 3752-8, 5195-3, 61624-7 #### [facility] CLIA [id number] [address] [place] [address] [place] Platelet mean volume (Bld) [Entitic vol] 9.1 fL Normal 9.0-12.7 [facility] Comment on above: Order Comment: Speci men Type: BLOOD SPECIMEN Ordering Facility: [facility] Address: [address] [place] [address] Performed By: #### 7 3752-8, 5195-3, 10021-6 #### [facility] CLIA [id number] [address] [place] [address] [place] Platelets (Bld) [#/Vol] 240 10*3/uL Normal 150-400 [facility] Comment on above: Order Comment: Speci men Type: BLOOD SPECIMEN Ordering Facility: [facility] Address: [address] [place] [address] Performed By: #### 7 3752-8, 5195-3, 66358-2 #### [facility] CLIA [id number] [address] [place] [address] [place] RBC (Bld) [#/Vol] 4.87 10*6/uL Normal 3.90-5.[address] [facility] Comment on above: Order Comment: Speci men Type: BLOOD SPECIMEN Ordering Facility: [facility] Address: [address] [place] [address] Performed By: #### 7 3752-8, 5195-3, 96901-8 #### [facility] CLIA [id number] [address] [place] [address] [place] WBC (Bld) [#/Vol] 8.92 10*3/uL Normal 3.70-11.[address] [facility] Comment on above: Order Comment: Speci men Type: BLOOD SPECIMEN Ordering Facility: [facility] Address: [address] [place] [address] Performed By: #### 7 3752-8, 5195-3, 91263-6 #### [facility] CLIA [id number] [address] [place] [address] [place] HBV surface Ag Ser Qlon 05-0 HBV surface Ag Ql (S) Negative Normal Negative [facility] Comment on above: Order Comment: Speci men Type: BLOOD SPECIMEN Ordering Facility: [facility] Address: [address] [place] [address] Performed By: #### 7 3752-8, 5195-3, 92920-9 #### [facility] CLIA [id number] [address] [place] [address] [place] HCV Ab Ser Qlon 06-12-2024 HCV Ab Ql (S) Negative Normal Negative [facility] Comment on above: Order Comment: Speci men Type: BLOOD SPECIMEN Ordering Facility: [facility] Address: [address] [place] [address] Result Comment: The result suggests no evidence of infection with Hepatitis C virus. Should recent infection be suspected, repeat testing may be considered 4-6 weeks after this draw. Performed By: #### 3 024-7, 3053-6, 3016-3 #### [facility] CLIA [id number] [address] [place] [address] [place] HIV 1+2 Ab IA Qlon 5 HIV 1 and 2 Ab IA.rapid Nom (S/P/Bld) Normal [facility] Comment on above: Order Comment: Speci men Type: BLOOD SPECIMEN Ordering Facility: [facility] Address: [address] [place] [address] Result Comment: Test not indicated. Performed By: #### 7 3752-8, 5195-3, 49414-8 #### [facility] CLIA [id number] [address] [place] [address] [place] HIV 1+2 Ab+HIV1 p24 Ag IA Ql Non-Reactive Normal Nonreactive [facility] Comment on above: Order Comment: Speci men Type: BLOOD SPECIMEN Ordering Facility: [facility] Address: [address] [place] [address] Performed By: #### 7 3752-8, 5195-3, 88930-4 #### [facility] CLIA [id number] [address] [place] [address] [place] HIV immunoassay testing algorithm interpretation (S/P/Bld) [Interp] Normal [facility] Comment on above: Order Comment: Speci men Type: BLOOD SPECIMEN Ordering Facility: [facility] Address: [address] [place] [address] Result Comment: No e vidence of HIV-1 or HIV-2 infection. Should recent infection be suspected, repeat testing may be considered 2-3 weeks after this draw. [place] Rev. Code 3701.243(E): This information has been [...] diagnoses. Performed By: #### 7 3752-8, 5195-3, 01708-1 #### [facility] CLIA [id number] [address] [place] [address] [place] HbA1c (Bld)on 06-12-2024 Average glucose Estimated from glycated hemoglobin (Bld) [Mass/Vol] 94 mg/dL Normal [facility] Comment on above: Order Comment: Speci men Type: BLOOD SPECIMEN Ordering Facility: [facility] Address: [address] [place] [address] Result Comment: eAG: (Estimated average glucose) is a calculated value from HgbA1c and is cash posting representative of the average blood glucose level in the last 2-3 month period. Performed By: #### 3 024-7, 3053-6, 6-3 #### [facility] CLIA [id number] [address] [place] [address] [place] HbA1c (Bld) [Mass fraction] 4.9 % Normal 4.3-5.6 [facility] Comment on above: Order Comment: Speci men Type: BLOOD SPECIMEN Ordering Facility: [facility] Address: [address] [place] [address] Result Comment: [place] Diabetes Association guidelines indicate that patients with HgbA1c in the range 5.7-6.4% are at increased risk for development of diabetes, and intervention by lifestyle modification may be beneficial. HgbA1c greater or equal to 6.5% is considered diagnostic of diabetes. Performed By: #### 3 024-7, 3053-6, 3016-3 #### [facility] CLIA [id number] [address] [place] [address] [place] [id number] PLUSon 06-12-2024 Cell-free DNA./Cell-free DNA.total Dosage of chromosome-specific cfDNA (cfDNA) [Molar fraction] 12% Normal [facility] Comment on above: Order Comment: Speci men Type: BLOOD SPECIMENOrdering Facility: [facility] Address: [address] [place], [place] [address] Performed By: #### M AT21 ####[employer] [facility] LABCLIA [id number] [place] [address] Chr 13+18+21+X+Y aneuploidy Dosage of chromosome-specific cfDNA Ql (cfDNA) Negative Normal [facility] Comment on above: Order Comment: Speci men Type: BLOOD SPECIMENOrdering Facility: [facility] Address: [address] [place] [address] Performed By: #### M AT21 ####[facility] LABCLIA [id number] [place] [address] Chr 21 trisomy Dosage of chromosome-specific cfDNA Ql (cfDNA) Negative Normal [facility] Comment on above: Order Comment: Speci men Type: BLOOD SPECIMENOrdering Facility: [facility] Address: [address] [place] [address] Performed By: #### M AT21 ####[employer] LABCLIA [id number] [place] [address] Chr X and Y aneuploidy risk Sequencing Ql (cfDNA) [Interp] Not detected Normal [facility] Comment on above: Order Comment: Speci men Type: BLOOD SPECIMENOrdering Facility: [facility] Address: [address] [place] [address] Result Comment: Not Detected Not Detected Performed By: #### M AT21 ####[employer] [facility] LABCLIA [id number] [place] [address] Citation Isaiah (Reference lab test) Comment Normal [facility] Comment on above: Order Comment: Speci men Type: BLOOD SPECIMENOrdering Facility: [facility] Address: [address] [place] [address] Result Comment: 1. P june CLIFFORD, et al. Daniela Med. 2012;14(3):296-305. 2. Barb SANZ et al. Prenat Diag. 2013;33(6):591-597. 3. Jesús C, et al. Clin Chem. 2015 Apr;61(4):608-616. 4. Onesimo CLIFFORD et al. Daniela Med. 2011;13(11):913-920. 5. ACOG/SMFM Practice Bulletin No. 226, Nov 2019. Performed By: #### M AT21 ####[facility] LABCLIA [id number] [place] [address] Gestational age Estimated from conception date Davies Normal [facility] Comment on above: Order Comment: Speci men Type: BLOOD SPECIMENOrdering Facility: [facility] Address: [address] [place] [address] Performed By: #### M AT21 ####[facility] LABCLIA [id number] [place] [id number] GESTATIONALAGE AGE > OR = 9W Yes Normal [facility] Comment on above: Order Comment: Speci men Type: BLOOD SPECIMENOrdering Facility: [facility] Address: [address] [place] [address] Performed By: #### M AT21 ####[facility] LABCLIA [id number] [place] [id number] Laboratory comment Isaiah (Report) Comment Normal [facility] Comment on above: Order Comment: Speci jillian Type: BLOOD SPECIMENOrdering Facility: [facility] Address: [address] [place] [address] Result Comment: The MaterniT(R) 21 PLUS laboratory-developed test (LDT) analyzes circulating cell-free DNA from a maternal blood sample. This test is used for screening purposes and not diagnostic. Clinical correlation is recommended. Validation data on twin pregnancies is limited and the ability of this test to detect aneuploidy in higher multiple gestations has not yet been validated. Performed By: #### M AT21 ####[facility] LABCLIA [id number] [place] [id number] director television news name Nom (Provider) Comment Normal [facility] Comment on above: Order Comment: Speci men Type: BLOOD SPECIMENOrdering Facility: [facility] Address: [address] [place] [address] Result Comment: This specimen showed an expected representation of chromosome 21, 18 and 13 material. Clinical correlation is suggested. Comment Moe Nagy MD, PhD, Director, [employer] Performed By: #### M AT21 ####[facility] LABCLIA [id number] [place] [address] LIMITATIONS OF THE TEST Comment Normal [facility] Comment on above: Order Comment: Speci men Type: BLOOD SPECIMENOrdering Facility: [facility] Address: [facility] [place] [address] Result Comment: Monik lopez the results of [...] and Fragmin(R)). Performed By: #### M AT21 ####[employer] PartsIA [id number] [place] [id number] Monosomy X risk Dosage of chromosome-specific cfDNA Ql (Plasma cell-free+WBC DNA) [Interp] Not detected Normal [facility] Comment on above: Order Comment: Selam walsh Type: BLOOD SPECIMENOrdering Facility: [facility] Address: [address] [place] [address] Performed By: #### M AT21 ####[employer] LABGenesis NetworksIA [id number] [place] [id number] NEGATIVE PREDICTIVE VALUE Note Normal [facility] Comment on above: Order Comment: Selam walsh Type: BLOOD SPECIMENOrdering Facility: [facility] Address: [address] [place] [address] Result Comment: The Negative Predictive Value (NPV) for trisomy 21, 18, and 13 is greater than 99%. The NPV for SCA and ESS cannot be calculated as SCA and ESS are only reported when an abnormality is detected. Performed By: #### M AT21 ####[employer] LABGenesis NetworksIA [id number] [place] [address] PERFORMANCE CHARACTERISTICS Note Normal [facility] Comment on above: Order Comment: Selam walsh Type: BLOOD SPECIMENOrdering Facility: [facility] Address: [address] [place] [address] Result Comment: ! Sex ! Accuracy: 99.4% [...] ! ! * As reported in [facility] database nstd37 [https://www.ncbi.nlm.nih.gov/dbvar/studies/nstd37/ ] # [...] gestation only. Performed By: #### M AT21 ####[employer] LABCLIA [id number] [place] [address] POSITIVE PREDICTIVE VALUE N/A Normal [facility] Comment on above: Order Comment: Speci men Type: BLOOD SPECIMENOrdering Facility: [facility] Address: [address] [place] [address] Performed By: #### M AT21 ####[employer] LABCLIA [id number] [place] [address] Reference Lab Test Method Comment Normal [facility] Comment on above: Order Comment: Speci men Type: BLOOD SPECIMENOrdering Facility: [facility] Address: [address] [place] [address] Result Comment: See Notes Circulating cell-free DNA [...] and 22. Performed By: #### M AT21 ####[employer] LABCLIA [id number] [place] [address] Service comment (Unsp spec) [Interp] Comment Normal [facility] Comment on above: Order Comment: Speci men Type: BLOOD SPECIMENOrdering Facility: [facility] Address: [address] [place] [address] Result Comment: See Notes [employer] is a subsidiary of [employer], using the brand [employer]. This test was developed and its performance characteristics determined by [employer]. It has not been cleared or approved by the Food and Drug Administration. This laboratory is certified under the Clinical Laboratory Improvement Amendments (CLIA) as qualified to perform high complexity clinical laboratory testing and accredited by the College [employer] [place] [employer] (CAP). If there is future clinical need for adding MaterniT GENOME testing, this specimen will be available until term. [facility] samples will not be retained beyond 60 days. [facility] patients will have to send a new sample for re-sequencing ([facility] Test Code: [id number]). Performed By: #### M AT21 ####[employer] LABCLIA [id number] [place] [address] Sex Dosage of chromosome-specific cfDNA Nom (cfDNA) Comment Normal [facility] Comment on above: Order Comment: Speci men Type: BLOOD SPECIMENOrdering Facility: [facility] Address: [address] [place] [address] Result Comment: Cons istent with Female Performed By: #### M AT21 ####[employer] LABGenesis NetworksIA [id number] [place] [address] Test performance information Isaiah (Unsp spec) Comment Normal [facility] Comment on above: Order Comment: Speci men Type: BLOOD SPECIMENOrdering Facility: [facility] Address: [address] [place] [address] Result Comment: The performance characteristics of the MaterniT(R) 21 PLUS laboratory-developed test (LDT) have been determined in a clinical validation study with women at increased risk for chromosomal aneuploidy.[1-4] Performed By: #### M AT21 ####[employer] LABCLIA [id number] [place] [address] Trisomy 13 risk Dosage of chromosome-specific cfDNA Ql (cfDNA) [Interp] Negative Normal [facility] Comment on above: Order Comment: Speci men Type: BLOOD SPECIMENOrdering Facility: [facility] Address: [address] [place] [address] Performed By: #### M AT21 ####[employer] LABCLIA [id number] [place] [address] Trisomy 18 risk Dosage of chromosome-specific cfDNA Ql (Plasma cell-free+WBC DNA) [Interp] Negative Normal [facility] Comment on above: Order Comment: Speci jillian Type: BLOOD SPECIMENOrdering Facility: [facility] Address: [address] [place] [address] Performed By: #### M AT21 ####[employer] LABCLIA [id number] [place] [address] RUBELLA IGG ANTIBODYon 06-12 RUBELLA IGG AB, QUAL Positive Normal Positive [facility] Comment on above: Order Comment: Speci men Type: BLOOD SPECIMEN [facility] Address: [address] [place] [address] Result Comment: The result suggests recent or past exposure to Rubella virus or history of Rubella vaccination. Positive result may also be seen due to presence of passively-transferred antibodies. Please correlate with patient's history. Performed By: #### 7 3752-8, 5195-3, 85621-2 #### [facility] CLIA [id number] [address] [place] [address] [place] Reagin and Treponema pallidu m IgG and IgM [Interp]on 06-12-2024 T. pallidum IgG+IgM IA Ql (S) Non-Reactive Normal Nonreactive [facility] Comment on above: Order Comment: [facility]i [facility] Type: BLOOD SPECIMEN [facility] Address: [address] [place] [address] Performed By: #### 7 3752-8, 5195-3, 10829-1 #### [facility] CLIA [id number] [address] [place] [address] [place] Reagin+T pallidum IgG+IgM Se rPl-Impon 06-12-2024 Reagin and Treponema pallidum IgG and IgM [Interp] Cannot exclude recent Treponemal infection if specimen collected within 7-10 days after appearance of suspect lesions or 2-3 weeks after an exposure. Clinical correlation is required. Normal [facility] Comment on above: Order Comment: Speci men Type: BLOOD SPECIMEN [facility] Address: [address] [place] [address] Performed By: #### 7 3752-8, 5195-3, 66723-7 #### [facility] CLIA [id number] [address] [place] [address] OF [place] TYPE + SCREEN PRENATALon ABO A Normal [facility] Comment on above: Order Comment: Speci men Type: BLOOD SPECIMEN [facility] Address: [address] [place] [address] Performed By: #### 7 3752-8, 5195-3, 36425-5 #### [facility] CLIA [id number] [address] [place] [address] OF [place] Rh Nom (Bld) Negative Normal [facility] Comment on above: Order Comment: Speci men Type: BLOOD SPECIMEN [facility] Address: [address] [place] [address] Performed By: #### 7 3752-8, 5195-3, 97762-3 #### [facility] CLIA [id number] [address] [place] [address] TYPE AND SCREEN EXPIRATION 06/15/2024 23:59 Normal [facility] Comment on above: Order Comment: Speci men Type: BLOOD SPECIMEN [facility] Address: [address] [place] [address] Performed By: #### 7 3752-8, 5195-3, 75075-0 #### [facility] CLIA [id number] [address] [place] [address] OF [place] CNPRaysa 05-24-2024 CNPN Telephone (FAMPWS) TEJALNENA ARGUELLO ([id number]) 1990 F Date Time Provider Department 05/24/24 [...] Requested Prescriptions Signed Prescriptions Disp Refills thyroid (DERMATOLOGY TEACHER THYROID) 120 mg tablet 140 tablet 3 Sig: Take 1 tablet PO 5 days a week and 2 tablets PO 2 days a week Authorizing Provider: MIGUELITO CHAMPION DO Rowland, Kathryn, [place] 05/26/2024 9:44 AM Signed Pt notified of results via [employer] Glo Smith Ma Allergies As of Date: 05/24/2024 Noted Allergy Reaction BEES 07/07/2008 7 - Swelling LATEX 07/07/2008 4 - Hives Date Reviewed: 05/23/2024 Reviewed by: Almita Sawyer LPN - Fully Assessed Reason for Visit: Results [95] Cmt: Primary Visit Diagnosis:Hypothyroidi sm, acquired [E03.9] Order(s):thyroid (DERMATOLOGY TEACHER THYROID) 120 mg tabletTake 1 tablet PO 5 days a week and 2 tablets PO 2 days a weekDisp: 140 tabletRfl: 3 THYROID STIMULATING HORMONE [SQTSH] Order #: [id number] FUTURE T4 FREE/FREE THYROXINE [SQFT4] Order #: [id number] FUTURE Prescriptions as of 05/26/2024 - thyroid (DERMATOLOGY TEACHER THYROID) 120 mg tablet Take 1 tablet [...] Medications Discontinued During This Encounter Prescriptions - DERMATOLOGY TEACHER THYROID 60 mg tablet (Discontinued) TAKE 2 TABLETS BY MOUTH EVERY DAY Encounter Status:Closed by GLO SMITH on 05/26/24 Normal [facility] Bacteria Ur Culton 5 Bacteria identified Cx Nom (U) ORGANISM ID: 1 >=100,000 CFU/ml Normal urogenital trina Normal [facility] Comment on above: Performed By: #### 7 3752-8, 5195-3, 26448-0 #### [facility] CLIA [id number] [address] [place] [address] [place] [address] [place] C. trachomatis+N. gonorrhoea e DNA SAMSON+probe Ql (Unsp spec)on 05-23-2024 C. trachomatis rRNA SAMSON+probe Ql (Unsp spec) Not detected Normal Not detected [facility] Comment on above: Order Comment: Speci men Type: BLOOD SPECIMEN [facility] Address: [address] [place] [address] Performed By: #### 3 024-7, 3053-6, 3016-3 #### [facility] CLIA [id number] [address] [place] [address] [place] N. gonorrhoeae rRNA SAMSON+probe Ql (Unsp spec) Not detected Normal Not detected [facility] Comment on above: Order Comment: Speci men Type: BLOOD SPECIMEN [facility] Address: [address] [place] [address] Performed By: #### 3 024-7, 3053-6, 3016-3 #### [facility] CLIA [id number] [address] [place] [place] [address] [place] HIGH RISK HUMAN PAPILLOMA BIB (HPV), PCR FOR DETECTION AND GENOTYPINGon 05-23-2024 HPV 16 Ag Ql (Unsp spec) Not detected Normal Not detected [facility] Comment on above: Order Comment: Speci men Type: FLUID SPECIMENOrdering Facility: [facility] Address: [address] [place] [address] Performed By: #### H PVHRT ####[facility] LABIA [id number] [place] [address] [place] HPV 18 Ag Ql (Unsp spec) Not detected Normal Not detected [facility] Comment on above: Order Comment: Speci men Type: FLUID SPECIMENOrdering Facility: [facility] Address: [address] [place] [address] Performed By: #### H PVHRT ####[facility]IA [id number] [place] [address] [place] HPV 31+33+35+39+45+51+52 +56+58+59+66+68 DNA SAMSON+probe Ql (Cvx) Not detected Normal Not detected [facility] Comment on above: Order Comment: Speci men Type: FLUID SPECIMENOrdering Facility: [facility] Address: [address] [place] [address] Result Comment: High Risk HPV Other Type includes HPV types 31, 33, 35, 39, 45, 51, 52, 56, 58, 59, 66 and 68. Performed By: #### H PVHRT ####[facility]IA [id number] [place] [address] [place] PAP TESTon 05-23-2024 ADEQUACY Normal [facility] Comment on above: Order Comment: Speci men Type: BLOOD SPECIMEN [facility] Address: [address] [place] [address] Result Comment: Sati sfactory for interpretation. Transformation zone present Performed By: #### 7 3752-8, 5194-3, 19041-4 #### [facility] CLIA [id number] [address] [place] [address] [place] CASE REPORT Normal [facility] Comment on above: Order Comment: Speci men Type: BLOOD SPECIMEN [facility] Address: [address] [place] [address] Result Comment: Gyne cologic Cytology Report Case: [id number] Authorizing Provider: Shiloh Westfall APRN.TUBE SIZER OPERATOR Collected: 05/23/2024 09:08 AM Ordering Location: OB/Gynecology Received: 05/23/2024 12:22 PM First Screen: Gmitro, Darryl, CT, ASCP Specimen: Pap Test, ThinPrep, Cervix Performed By: #### 7 3752-8, 5194-3, 45658-3 #### [facility] CLIA [id number] [address] [place], [place] [address] [place] CLINICAL HISTORY, CYTOLOGY, CALL CENTER RN Routine Exam Normal [facility] Comment on above: Order Comment: Speci men Type: BLOOD SPECIMEN [facility] Address: [address] [place] [address] Performed By: #### 7 3752-8, 5195-3, 02505-8 #### [facility] CLIA [id number] [address] [id number] [address] [place] FINAL PERFORMING LAB Normal [facility] [place] Comment on above: Order Comment: Speci men Type: BLOOD SPECIMEN [facility] Address: [address] [place] [address] Result Comment: Tech nical component, dial refinisher screening performed at [facility], [address] [place] [address] CLIA# [id number] Diagnostic interpretation performed at [facility], [address] [place] [address] CLIA# [id number] Treasury Accountant: Bassam Dawn M.D. Performed By: #### 7 3752-8, 5195-3, 61296-1 #### [facility] CLIA [id number] [address] [place] [address] [place] INTERPRETATION, CYTOLOGY, CALL CENTER RN Normal [facility] Comment on above: Order Comment: Speci men Type: BLOOD SPECIMEN [facility] Address: [address] [place] [address] Result Comment: Nega tive for intraepithelial lesion or malignancy. at 1427 EDT Performed By: #### 7 3752-8, 5-3, 92740-0 #### [facility] CLIA [id number] [address] [place], [place] [address] [place] LMP 04/02/2024 Normal [facility] Comment on above: Order Comment: Speci men Type: BLOOD SPECIMEN [facility] Address: [address] [place], [place] [address] Performed By: #### 7 3752-8, 5-3, 90082-6 #### [facility] CLIA [id number] [address] [place], [place] [address] [place] PAP DISCLAIMER COMMENT The Pap Smear is a screening test for cervical cancer. False negative results occur with all screening tests, emphasizing the need for rescreening at recommended intervals, and clinical correlation. Normal [facility] Comment on above: Order Comment: Speci men Type: BLOOD SPECIMEN [facility] Address: [address] [place] [address] Performed By: #### 7 3752-8, 5195-3, 96620-6 #### [facility] CLIA [id number] [address] [place] [address] OF [place] PAP PENAL OFFICER COMMENT This specimen has be en analyzed by the ThinPrep Imaging System, an automated imaging and review system, which assists the laboratory in evaluating cells on ThinPrep Pap tests. Following automated imaging, selected narvaez from every slide are reviewed by a dial refinisher. Normal [facility] Comment on above: Order Comment: Luis Antonioi jillian Type: BLOOD SPECIMEN [facility] Address: [address] [place] [address] Performed By: #### 7 3752-8, 5195-3, 50000-9 #### [facility] CLIA [id number] [address] [place] [address] [place] POC FORGE OPERATOR HELPER ULTRASOUNDon 05-24-19 Indication Confirmation of intrauterine . [...] Read By: Shiloh Westfall CNP MATERNAL MEDICINE [facility] Radiology Study observation (narrative) [facility] T4 Free SerPl-mCncon 025 Free T4 [Mass/Vol] 0.9 ng/dL Normal 0.9-1.7 [facility] Comment on above: Order Comment: Speci men Type: BLOOD SPECIMEN [facility] Address: [address] [place] [address] Performed By: #### 7 3752-8, 5195-3, 81060-1 #### [facility] CLIA [id number] [address] [place] [address] [place] TRICHOMONAS VAGINALIS NAATon 05-23-2024 T. vaginalis DNA SAMSON+probe Ql (Unsp spec) Not detected Normal Not detected [facility] Comment on above: Order Comment: Speci men Type: BLOOD SPECIMEN [facility] Address: [address] [place] [address] Performed By: #### 3 024-7, 3053-6, 3016-3 #### [facility] CLIA [id number] [address] [place] [address] [place] TSH SerPl-aCncon 05-23-2024 TSH Qn 6.500 m[IU]/L High 0.270-4.200 [facility] Comment on above: Order Comment: Speci men Type: BLOOD SPECIMEN [facility] Address: [address] [place] [address] Result Comment: If t he patient is , TSH reference range varies by gestational period: First Trimester (weeks 9-12): 0.180-2.990 mIU/L Second Trimester: 0.110-3.980 mIU/L Third Trimester: 0.480-4.710 mIU/L Homer Caputo et al. A Practical Approach for the Verifications and Determination of Site- and Trimester-Specific Reference Intervals for Thyroid Function tests in . Thyroid, 2019:29:3:412-420. Moose E, et al. 2017 Guidelines of the [place] Thy[employer] Association for the Diagnosis and Management of Thyroid Disease during and the . Thyroid, 2017:27:3:315-389. Performed By: #### 7 3752-8, 5195-3, 34041-8 #### [facility] CLIA [id number] [address] [place] [address] CNPNon 05-05-2024 CNPN Telephone (OBGYWM) NENA LEIVA ([id number]) 1990 F Date Time Provider Department 05/05/24 [...] Assessed Reason for Visit: Question (OB Question) [2988] Prescriptions as of 05/05/2024 - tirzepatide (MOUNJARO) 10 mg/0.5 mL pen injector Inject 10 mg subcutaneously one time a week. - DERMATOLOGY TEACHER THYROID 60 mg tablet TAKE 2 TABLETS [...] Encounter Status:Closed by JULIANA HUSTON on 05/05/24 [facility] NENA LEIV[facility] ([id number]) 1990 F Date Time Provider Department 05/05/24 [facility] visit today, we recorded the [...] [E03.9] Order(s):THYROID STIMULATING HORMONE [SQTSH] Order #: [id number] FUTURE T4 FREE/FREE THYROXINE [SQFT4] Order #: [id number] FUTURE Prescriptions as of 05/05/2024 - tirzepatide (MOUNJARO) 10 mg/0.5 mL pen injector Inject 10 mg subcutaneously one time a week. - DERMATOLOGY TEACHER THYROID 60 mg tablet TAKE 2 TABLETS [...] by LISA LEÓN LPN on 05/05/24 Normal [facility] T3 SerPl-mCncon 04-04-2024 T3 [Mass/Vol] 72 ng/dL Low 79-165 [facility] Comment on above: Order Comment: Speci men Type: BLOOD SPECIMEN [facility] Address: [address] [place] [address] Performed By: #### 3 024-7, 305-6, 3015-3 #### [facility] CLIA [id number] [address] [place] [address] [place] T4 Free SerPl-mCncon 025 Free T4 [Mass/Vol] 0.9 ng/dL Normal 0.9-1.7 [facility] Comment on above: Order Comment: Selam walsh Type: BLOOD SPECIMEN [facility] Address: [address] [place] [address] Performed By: #### 3 024-7, 30504-17, 3 #### [facility] CLIA [id number] [address] [place] [address] [place] TSH SerPl-aCncon 04-04-2024 TSH Qn 2.590 m[IU]/L Normal 0.270-4.200 [facility] Comment on above: Order Comment: Selam walsh Type: BLOOD SPECIMEN [facility] Address: [address] [place] [address] Result Comment: If t he patient is , TSH reference range varies by gestational period: First Trimester (weeks 9-12): 0.180-2.990 mIU/L Second Trimester: 0.110-3.980 mIU/L Third Trimester: 0.480-4.710 mIU/L Homer Caputo et al. A Practical Approach for the Verifications and Determination of Site- and Trimester-Specific Reference Intervals for Thyroid Function tests in . Thyroid, 2019:29:3:412-420. Moose E, et al. 2017 Guidelines of the [place] Thyroid Association for the Diagnosis and Management of Thyroid Disease during and the . Thyroid, 2017:27:3:315-389. 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 Thank you for all you do! Miguelito Carpenter DO 03/18/2024 4:50 PM Signed I am not aware of any of this information with the [facility] pharmacy Recommend that she calls and asks the pharmacy specifically any questions DO Natasha Skelton Susan LPN 03/19/2024 8:58 AM Signed Pt. informed via My Chart Allergies As of Date: 03/11/2024 Noted Allergy Reaction BEES 07/07/2008 7 - Swelling LATEX 07/07/2008 4 - Hives Date Reviewed: 07/20/2023 Reviewed by: Alyson Meza LPN - Fully Assessed Reason for Visit: Patient Question [6657] Prescriptions as of 03/19/2024 - tirzepatide (MOUNJARO) [...] - cetirizine (ZYRTEC) 10 mg tablet - DERMATOLOGY TEACHER THYROID 60 mg tablet TAKE 2 TABLETS [...] Status:Closed by LISA LEÓN LPN on 03/19/24 [facility] 02-14-2024 [facility] Telephone (COURTNEY) NENA LEIVA ([id number]) 1990 F Date Time Provider Department 02/14/24 KAREN AZAR During your visit today, we recorded the following information about you: Karen Azar APRN.[facility] 02/14/2024 3:25 PM Signed Please call [...] AM Signed Pt notified of results via [employer]. Glo Smith Ma Allergies As of Date: 02/14/2024 Noted Allergy Reaction BEES 07/07/2008 7 - Swelling LATEX 07/07/2008 4 - Hives Date Reviewed: 07/20/2023 Reviewed by: Alyson Meza LPN - Fully Assessed Reason for Visit: Results [95] Primary Visit Diagnosis:Acquired hypothyroidism [E03.9] Order(s):THYROID STIMULATING HORMONE [SQTSH] Order #: [id number] FUTURE T3 [SQT3] Order #: [id number] FUTURE T4 FREE/FREE THYROXINE [SQFT4] Order #: [id number] FUTURE Prescriptions as of 02/18/2024 - tirzepatide [...] - cetirizine (ZYRTEC) 10 mg tablet - DERMATOLOGY TEACHER THYROID 60 mg tablet TAKE 2 TABLETS [...] Status:Closed by GLO SMITH on 02/18/24 Normal [facility] T3 SerPl-mCncon 02-04-2024 T3 [Mass/Vol] 87 ng/dL Normal 79-165 [facility] Comment on above: Order Comment: Speci men Type: BLOOD SPECIMEN Ordering Facility: [facility] Address: [address] [place] [address] Performed By: #### 7 3752-8, 5195-3, 19913-8 #### [facility] CLIA [id number] [address] [place] [address] [place] T4 Free SerPl-mCncon 024 Free T4 [Mass/Vol] 1.0 ng/dL Normal 0.9-1.7 [facility] Comment on above: Order Comment: Speci men Type: BLOOD SPECIMEN Ordering Facility: [facility] Address: [address] [place] [address] Performed By: #### 7 3752-8, 5195-3, 59117-6 #### [facility] CLIA [id number] [address] [place] [address] [place] TSH SerPl-aCncon 02-04-2024 TSH Qn 4.880 m[IU]/L High 0.270-4.200 [facility] Comment on above: Order Comment: Speci men Type: BLOOD SPECIMEN Ordering Facility: [facility] Address: [address] [place] [address] Result Comment: If t he patient is , TSH reference range varies by gestational period: First Trimester (weeks 9-12): 0.180-2.990 mIU/L Second Trimester: 0.110-3.980 mIU/L Third Trimester: 0.480-4.710 mIU/L Homer Caputo et al. A Practical Approach for the Verifications and Determination of Site- and Trimester-Specific Reference Intervals for Thyroid Function tests in . Thyroid, 2019:29:3:412-420. Moose Lopez, et al. 2017 Guidelines of the [place] Thyroid Association for the Diagnosis and Management of Thyroid Disease during and the . Thyroid, 2017:27:3:315-389. Performed By: #### 7 3752-8, 5195-3, 88415-9 #### [facility] CLIA [id number] [address] [place] [address] [place] CBC W Auto Differential pane l (Bld)on 07-20-2023 Basophils (Bld) [#/Vol] 0.09 10*3/uL [facility] Basophils/100 WBC (Bld) 0.8 % [facility] Differential cell count method Nom (Bld) Auto [facility] Eosinophils (Bld) [#/Vol] 0.41 10*3/uL [facility] Eosinophils/100 WBC (Bld) 3.5 % [facility] Erythrocyte distribution width (RBC) [Ratio] 13.1 % 11.5 - 15.0 % [facility] Hematocrit (Bld) [Volume fraction] 46.6 % High 36.0 - 46.0 % [facility] Hemoglobin (Bld) [Mass/Vol] 15.0 g/dL 11.5 - 15.5 g/dL [facility] Immature granulocytes (Bld) [#/Vol] 0.03 10*3/uL [facility] Immature granulocytes/100 WBC (Bld) 0.3 % [facility] Interpretation and review of laboratory results Abnormal [facility] Lymphocytes (Bld) [#/Vol] 3.24 10*3/uL [facility] Lymphocytes/100 WBC (Bld) 27.4 % [facility] MCH (RBC) [Entitic mass] 26.5 pg 26.0 - 34.0 pg [facility] MCHC (RBC) [Mass/Vol] 32.2 g/dL 30.5 - 36.0 g/dL [facility] MCV (RBC) [Entitic vol] 82.5 fL 80.0 - 100.0 fL [facility] Monocytes (Bld) [#/Vol] 0.73 10*3/uL NINF [facility] Monocytes/100 WBC (Bld) 6.2 % [facility] Neutrophils (Bld) [#/Vol] 7.33 10*3/uL [facility] Neutrophils/100 WBC (Bld) 61.8 % [facility] Nucleated RBC (Bld) [#/Vol] NINF [facility] Nucleated RBC/100 WBC (Bld) [Ratio] 0.0 % /100 WBC [facility] Platelet mean volume (Bld) [Entitic vol] 10.0 fL 9.0 - 12.7 fL [facility] Platelets (Bld) [#/Vol] 329 10*3/uL [facility] RBC (Bld) [#/Vol] 5.65 10*6/uL High 3.90 - 5.2 0 m/uL [facility] WBC (Bld) [#/Vol] 11.83 10*3/uL [facility] Comprehensive metabolic 2000 panelon 07-20-2023 Albumin [Mass/Vol] 4.8 g/dL 3.9 - 4.9 g/dL [facility] ALP [Catalytic activity/Vol] 82 U/L 34 - 123 U/L [facility] ALT [Catalytic activity/Vol] 13 U/L 7 - 38 U/L [facility] Anion gap [Moles/Vol] 15 mmol/L 8 - 15 mmol/L [facility] AST [Catalytic activity/Vol] 17 U/L 13 - 35 U/L [facility] Bilirubin [Mass/Vol] 0.6 mg/dL 0.2 - 1.3 mg/dL [facility] Calcium [Mass/Vol] 9.8 mg/dL 8.5 - 10. 2 mg/dL [facility] Chloride [Moles/Vol] 101 mmol/L 98 - 107 mmol/L [facility] CO2 [Moles/Vol] 22 mmol/L 22 - 30 mmol/L [facility] Creatinine [Mass/Vol] 0.94 mg/dL 0.58 - 0.96 mg/dL [facility] GFR/1.73 sq M.predicted among non-blacks MDRD (S/P/Bld) [Vol rate/Area] 82 mL/min/{1.73_m2} - PINF [facility] Comment on above: Estimated Glomerular Filtration Rate [...] [Mass/Vol] 92 mg/dL 74 - 99 mg/dL [facility] Comment on above: The [place] Diabete s Association (ADA) provides guidance for [...] Standards of Medical Care in Diabetes 2016, [place] Diabetes Association. Diabetes Care. 2016.39(Suppl 1). Interpretation and review of laboratory results Normal [facility] Potassium [Moles/Vol] 4.7 mmol/L 3.7 - 5.1 mmol/L [facility] Protein [Mass/Vol] 7.6 g/dL 6.3 - 8.0 g/dL Cl [facility] Sodium [Moles/Vol] 138 mmol/L 136 - 144 mmol/L [facility] Urea nitrogen [Mass/Vol] 14 mg/dL 7 - 21 mg/dL [facility] Free T3 [Mass/Vol]on 024 Interpretation and review of laboratory results Abnormal [facility] Free T4 [Mass/Vol]on 024 Interpretation and review of laboratory results Normal [facility] HbA1c (Bld)on 07-20-2023 Average glucose Estimated from glycated hemoglobin (Bld) [Mass/Vol] 94 mg/dL [facility] Comment on above: eAG: (Estimated aver age glucose) is a calculated value from HgbA1c and is cash posting representative of the average blood glucose level in the last 2-3 month period. HbA1c (Bld) [Mass fraction] 4.9 % 4.3 - 5.6 % [facility] Comment on above: [place] Diabetes As sociation guidelines indicate that patients with HgbA1c in the range 5.7-6.4% are at increased risk for development of diabetes, and intervention by lifestyle modification may be beneficial. HgbA1c greater or equal to 6.5% is considered diagnostic of diabetes. [facility] Lipid 1996 panelon 4 Cholesterol [Mass/Vol] 182 mg/dL NINF - 200 mg/dL [facility] Comment on above: <200 mg/dL, Desirabl e 200-239 mg/dL, Borderline high >239 mg/dL, High Cholesterol in HDL [Mass/Vol] 53 mg/dL 39 - PINF mg/dL [facility] Comment on above: 40-59 mg/dL, Accepta ble >59 mg/dL, High: Negative risk factor for coronary heart disease <40 mg/dL, Low: Positive risk factor for coronary heart disease Cholesterol in LDL [Mass/Vol] 117 mg/dL High NINF - 100 mg/dL [facility] Comment on above: <100 mg/dL, Optimal 100-129 mg/dL, Near optimal/above optimal 130-159 mg/dL, Borderline high 160-189 mg/dL, High >189 mg/dL, Very high Secondary prevention optimal LDL Cholesterol levels are recommended to be < 70 mg/dL Cholesterol in LDL/Cholesterol in HDL [Mass ratio] 2.21 {ratio} NINF - 2.54 [facility] Comment on above: Reference: 1. National Cholesterol Education Program ATP III Guideline At-A-Glance Quick Desk Reference: National Heart, Lung, and Blood [place]. National Institutes of Health. 2001: NIH Publication No. 01-3305. 2. An International Atherosclerosis Society position paper: global recommendations for the management of dyslipidemia: executive summary, Atherosclerosis. 2014: 232(2):410-413. Cholesterol in VLDL [Mass/Vol] 12 mg/dL NINF - 30 mg/dL [facility] Cholesterol non HDL [Mass/Vol] 129 mg/dL NINF - 130 mg/dL [facility] Comment on above: <130 mg/dL, Optimal 130-159 mg/dL, Near optimal/above optimal 160-189 mg/dL, Borderline high 190-219 mg/dL, High >219 mg/dL, Very high Secondary prevention optimal non HDL Cholesterol levels are recommended to be <100 mg/dL Cholesterol.total/Ch olesterol in HDL [Mass ratio] 3.43 {ratio} NINF - 5.10 [facility] Fasting Time 16 hrs [facility] Interpretation and review of laboratory results Abnormal [facility] Triglyceride [Mass/Vol] 61 mg/dL NINF - 150 mg/dL [facility] Comment on above: <150 mg/dL, Normal 150-199 mg/dL, Borderline high 200-499 mg/dL, High >499 mg/dL, Very high No Panel Informationon 07-19 [facility] T3, FREEon 07-20-2023 Free T3 [Mass/Vol] 6.2 pg/mL High 2.3 - 4.1 pg/mL [facility] T4 FREE/FREE THYROXINEon Free T4 [Mass/Vol] 1.1 ng/dL 0.9 - 1.7 ng/dL [facility] THYROID STIMULATING HORMONEo n 07-20-2023 TSH Qn 4.760 m[IU]/L High [facility] Comment on above: If the patient is [...] Lopez, et al. 2017 Guidelines of the [place] Thyroid Association for the Diagnosis and Management of Thyroid Disease during and the . Thyroid, 2017:27:3:315-389. TSH Qnon 07-20-2023 Interpretation and review of laboratory results Abnormal [facility] CBC W Auto Differential pane l (Bld)on 09-22-2022 Basophils (Bld) [#/Vol] 0.05 10*3/uL <0.11 k/uL [facility] Basophils/100 WBC (Bld) 0.6 % [facility] Differential cell count method Nom (Bld) Auto [facility] Eosinophils (Bld) [#/Vol] 0.26 10*3/uL <0.46 k/uL [facility] Eosinophils/100 WBC (Bld) 3.1 % [facility] Erythrocyte distribution width (RBC) [Ratio] 12.8 % 11.5 - 15.0 % [facility] Hematocrit (Bld) [Volume fraction] 43.2 % 36.0 - 46.0 % [facility] Hemoglobin (Bld) [Mass/Vol] 14.1 g/dL 11.5 - 15.5 g/dL [facility] Immature granulocytes (Bld) [#/Vol] <0.10 k/uL [facility] Immature granulocytes/100 WBC (Bld) 0.2 % [facility] Lymphocytes (Bld) [#/Vol] 2.62 10*3/uL 1.00 - 4.00 k/uL [facility] Lymphocytes/100 WBC (Bld) 31.3 % [facility] MCH (RBC) [Entitic mass] 28.0 pg 26.0 - 34.0 pg [facility] MCHC (RBC) [Mass/Vol] 32.6 g/dL 30.5 - 36.0 g/dL [facility] MCV (RBC) [Entitic vol] 85.7 fL 80.0 - 100.0 fL [facility] Monocytes (Bld) [#/Vol] 0.62 10*3/uL <0.87 k/uL [facility] Monocytes/100 WBC (Bld) 7.4 % [facility] Neutrophils (Bld) [#/Vol] 4.80 10*3/uL 1.45 - 7.50 k/uL [facility] Neutrophils/100 WBC (Bld) 57.4 % [facility] Nucleated RBC (Bld) [#/Vol] <0.01 k/uL [facility] Nucleated RBC/100 WBC (Bld) [Ratio] 0.0 /100 WBC [facility] Platelet mean volume (Bld) [Entitic vol] 10.4 fL 9.0 - 12.7 fL [facility] Platelets (Bld) [#/Vol] 278 10*3/uL 150 - 400 k/uL [facility] RBC (Bld) [#/Vol] 5.04 10*6/uL 3.90 - 5.2 0 m/uL [facility] WBC (Bld) [#/Vol] 8.37 10*3/uL 3.70 - 11. 00 k/uL [facility] Comprehensive metabolic 2000 panelon 09-22-2022 Albumin [Mass/Vol] 4.4 g/dL 3.9 - 4.9 g/dL [facility] ALP [Catalytic activity/Vol] 68 U/L 34 - 123 U/L [facility] ALT [Catalytic activity/Vol] 16 U/L 7 - 38 U/L [facility] Anion gap [Moles/Vol] 10 mmol/L 9 - 18 mmol/L [facility] AST [Catalytic activity/Vol] 22 U/L 13 - 35 U/L [facility] Bilirubin [Mass/Vol] 0.4 mg/dL 0.2 - 1.3 mg/dL [facility] Calcium [Mass/Vol] 9.5 mg/dL 8.5 - 10. 2 mg/dL [facility] Chloride [Moles/Vol] 104 mmol/L 97 - 105 mmol/L [facility] CO2 [Moles/Vol] 25 mmol/L 22 - 30 mmol/L [facility] Creatinine [Mass/Vol] 0.81 mg/dL 0.58 - 0.96 mg/dL [facility] Estimated Glomerular Filtration Rate 98 mL/min/1.73m >=60 mL/min/1.73m [facility] Glucose [Mass/Vol] 101 mg/dL High 74 - 99 mg/dL [facility] Potassium [Moles/Vol] 4.1 mmol/L 3.7 - 5.1 mmol/L [facility] Protein [Mass/Vol] 6.9 g/dL 6.3 - 8.0 g/dL [facility] Sodium [Moles/Vol] 139 mmol/L 136 - 144 mmol/L [facility] Urea nitrogen [Mass/Vol] 14 mg/dL 7 - 21 mg/dL [facility] HbA1c (Bld)on 09-22-2022 Average glucose Estimated from glycated hemoglobin (Bld) [Mass/Vol] 97 mg/dL [facility] HbA1c (Bld) [Mass fraction] 5.0 % 4.3 - 5.6 % [facility] Lipid 1996 panelon 3 Cholesterol [Mass/Vol] 174 mg/dL <200 mg/dL [facility] Cholesterol in HDL [Mass/Vol] 55 mg/dL >39 mg/dL [facility] Cholesterol in LDL [Mass/Vol] 97 mg/dL <100 mg/dL [facility] Cholesterol in LDL/Cholesterol in HDL [Mass ratio] 1.76 {ratio} <2.54 [facility] Cholesterol in VLDL [Mass/Vol] 22 mg/dL <30 mg/dL [facility] Cholesterol non HDL [Mass/Vol] 119 mg/dL <130 mg/dL [facility] Cholesterol.total/Ch olesterol in HDL [Mass ratio] 3.16 {ratio} <5.10 [facility] Fasting Time 14 hrs [facility] Triglyceride [Mass/Vol] 108 mg/dL <150 mg/dL [facility] XR Foot - left AP and Latera l and obliqueon 04-06-2020 IMPRESSION: No acute osseous abnormality identified. Manager Foreign: PSCB Transcribe Date/Time: Apr 06 2020 9:59A Dictated by : NANDO SWIFT MD This examination was interpreted and the report reviewed and electronically signed by: NANDO SWIFT MD on Apr 06 2020 10:04AM [facility] DIVISION OF RADIOLOGY * * *Final [...] tissue abnormality identified. DIVISION OF RADIOLOGY Provider, [facility] - 04/06/2020 * * *Final Report* [...] IMPRESSION IMPRESSION: No acute osseous abnormality identified. Manager Foreign: PSCB Transcribe Date/Time: Apr 06 2020 9:59A Dictated by : NANDO SWIFT MD This examination was interpreted and the report reviewed and electronically signed by: NANDO SWIFT MD on Apr 06 2020 10:04AM EST [facility] Radiology Study observation (narrative) [facility] XR Foot - left AP and Latera l and obliqueOrdered By: Ccf Provider on 04-06-2020 [facility] Vital Signs Date Time Vital Sign Value Performing Clinician Facility 10-29-2024 10:58-0400 Body mass index (BMI) [Ratio] 39.18 kg/m2 Kristen Smith MD Work Phone: [facility] 10-29-2024 10:58-0400 Body weight 107.96 kg Kristen Smith MD Work Phone: [facility] 10-29-2024 10:58-0400 Diastolic blood pressure 68 mm[Hg] Kristen Smith MD Work Phone: [facility] 10-29-2024 10:58-0400 Systolic blood pressure 100 mm[Hg] Kristen Smith MD Work Phone: [facility] 10-15-2024 14:38-0400 Body mass index (BMI) [Ratio] 39.18 kg/m2 Lauren Madera APRN.TUBE SIZER OPERATOR Work Phone: [facility] 10-15-2024 14:38-0400 Body weight 107.96 kg Lauren Madera APRN.TUBE SIZER OPERATOR Work Phone: [facility] 10-15-2024 14:38-0400 Diastolic blood pressure 80 mm[Hg] Lauren Matakim CARPENTER.TUBE SIZER OPERATOR Work Phone: [facility] 10-15-2024 14:38-0400 Systolic blood pressure 120 mm[Hg] Lauren Matakim CARPENTER.TUBE SIZER OPERATOR Work Phone: [facility] 08-23-2024 08:41-0400 Body height 166 cm Miguelito Champion DO Work Phone: [facility] 08-23-2024 08:41-0400 Body mass index (BMI) [Ratio] 37.4 kg/m2 Miguelito Champion DO Work Phone: [facility] 08-23-2024 08:41-0400 Body temperature 98.01 [degF] Miguelito Champion DO Work Phone: [facility] 08-23-2024 08:41-0400 Body weight 103.06 kg Miguelito Champion DO Work Phone: [facility] 08-23-2024 08:41-0400 Diastolic blood pressure 67 mm[Hg] Miguelito Champion DO Work Phone: [facility] Comment on above: bp machine 08-23-2024 08:41-0400 Heart rate 85 /min Miguelito Champion DO Work Phone: [facility] 08-23-2024 08:41-0400 SaO2% (BldA) [Mass fraction] 97 % Miguelito Champion DO Work Phone: [facility] 08-23-2024 08:41-0400 Systolic blood pressure 106 mm[Hg] Miguelito Champion DO Work Phone: [facility] Comment on above: bp machine 08-22-2024 15:56-0400 Body mass index (BMI) [Ratio] 38.12 kg/m2 Joe Boyce MD Work Phone: [facility] 08-22-2024 15:56-0400 Body weight 103.78 kg Joe Boyce MD Work Phone: [facility] 08-22-2024 15:56-0400 Diastolic blood pressure 70 mm[Hg] Joe Boyce MD Work Phone: [facility] 08-22-2024 15:56-0400 Systolic blood pressure 116 mm[Hg] Joe Boyce MD Work Phone: [facility] 07-25-2024 11:48-0400 Diastolic blood pressure 64 mm[Hg] Denae Renteria HAND FOLDER.CNM Work Phone: [facility] 07-25-2024 11:48-0400 Systolic blood pressure 112 mm[Hg] Denae Renteria HAND FOLDER.CNM Work Phone: [facility] 05-23-2024 08:12-0400 Body mass index (BMI) [Ratio] 35.59 kg/m2 Shiloh Pulaski HAND FOLDER.TUBE SIZER OPERATOR Work Phone: [facility] 05-23-2024 08:12-0400 Body weight 96.89 kg Shiloh Khoi HAND FOLDER.TUBE SIZER OPERATOR Work Phone: [facility] 05-23-2024 08:12-0400 Diastolic blood pressure 62 mm[Hg] Shiloh Khoi HAND FOLDER.TUBE SIZER OPERATOR Work Phone: [facility] 05-23-2024 08:12-0400 Systolic blood pressure 110 mm[Hg] Shiloh [place] HAND FOLDER.TUBE SIZER OPERATOR Work Phone: [facility] 07-20-2023 12:38-0400 Body height 165 cm Miguelito Champion DO Work Phone: [facility] 07-20-2023 12:38-0400 Body mass index (BMI) [Ratio] 37.79 kg/m2 Miguelito Champion DO Work Phone: [facility] 07-20-2023 12:38-0400 Body temperature 96.91 [degF] Miguelito Champion DO Work Phone: [facility] 07-20-2023 12:38-0400 Body weight 102.88 kg Miguelito Champion DO Work Phone: [facility] 07-20-2023 12:38-0400 Diastolic blood pressure 78 mm[Hg] Miguelito Champion DO Work Phone: [facility] 07-20-2023 12:38-0400 Heart rate 105 /min Miguelito Champion DO Work Phone: [facility] 07-20-2023 12:38-0400 Respiratory rate 16 /min Miguelito Champion DO Work Phone: [facility] 07-20-2023 12:38-0400 SaO2% (BldA) [Mass fraction] 99 % Miguelito Champion DO Work Phone: [facility] 07-20-2023 12:38-0400 Systolic blood pressure 104 mm[Hg] Miguelito Champion DO Work Phone: [facility] 09-22-2022 08:13-0400 Body height 164 cm Karen Azar HAND FOLDER.TUBE SIZER OPERATOR Work Phone: [facility] 09-22-2022 08:13-0400 Body weight 111.31 kg Karen Azar HAND FOLDER.TUBE SIZER OPERATOR Work Phone: [facility] 09-22-2022 08:13-0400 Diastolic blood pressure 70 mm[Hg] Karen Azar HAND FOLDER.TUBE SIZER OPERATOR Work Phone: [facility] 09-22-2022 08:13-0400 Heart rate 64 /min Karen Azar HAND FOLDER.TUBE SIZER OPERATOR Work Phone: [facility] [facility] 09-22-2022 08:13-0400 Respiratory rate 12 /min Karen Azar HAND FOLDER.TUBE SIZER OPERATOR Work Phone: [facility] 09-22-2022 08:13-0400 Systolic blood pressure 118 mm[Hg] Karen Azar HAND FOLDER.TUBE SIZER OPERATOR Work Phone: [facility] 06-13-2022 19:44-0400 Body temperature 98.01 [degF] Paula Lang PA-C Work Phone: [facility] 06-13-2022 19:44-0400 Body weight 112.49 kg Paula Athy PA-C Work Phone: [facility] 06-13-2022 19:44-0400 Diastolic blood pressure 72 mm[Hg] Paula Athy PA-C Work Phone: [facility] 06-13-2022 19:44-0400 Heart rate 90 /min Paula Athy PA-C Work Phone: [facility] 06-13-2022 19:44-0400 Respiratory rate 16 /min Paula Athy PA-C Work Phone: [facility] 06-13-2022 19:44-0400 SaO2% (BldA) [Mass fraction] 99 % Paula Athy PA-C Work Phone: [facility] 06-13-2022 19:44-0400 Systolic blood pressure 122 mm[Hg] Paula Athy PA-C Work Phone: [facility] 07-06-2021 07:39-0400 Body height 164.5 cm Miguelito Champion DO Work Phone: [facility] 07-06-2021 07:39-0400 Body temperature 97.5 [degF] Miguelito Champion DO Work Phone: [facility] 07-06-2021 07:39-0400 Body weight 103.87 kg Miguelito Champion DO Work Phone: [facility] 07-06-2021 07:39-0400 Diastolic blood pressure 70 mm[Hg] Miguelito Champion DO Work Phone: [facility] 07-06-2021 07:39-0400 Heart rate 80 /min Miguelito Champion DO Work Phone: [facility] 07-06-2021 07:39-0400 Respiratory rate 16 /min Miguelito Champion DO Work Phone: [facility] 07-06-2021 07:39-0400 Systolic blood pressure 120 mm[Hg] Miguelito Champion DO Work Phone: [facility] Encounters Encounter Date Encounter Type Care Provider Facility Start: 12-25-2024 End: 12-25-2024 ambulatory MIGUELITO L CHAMPION Facility:[facility] Start: 12-23-2024 End: 12-23-2024 ambulatory Denae Renteria Facility:[facility] Start: 12-18-2024 End: 12-18-2024 ambulatory MIGUELITO L CHAMPION Facility:[facility] Start: 12-11-2024 End: 12-11-2024 ambulatory MIGUELITO L CHAMPION Facility:[facility] Start: 12-11-2024 End: 12-11-2024 ambulatory MIGUELITO L CHAMPION Facility:[facility] Start: 11-27-2024 End: 11-27-2024 ambulatory MIGUELITO L CHAMPION Facility:[facility] Start: 11-12-2024 End: 11-12-2024 ambulatory MIGUELITO L CHAMPION Facility:[facility] Start: 11-12-2024 End: 11-12-2024 ambulatory MIGUELITO L CHAMPION Facility:[facility] Start: 10-29-2024 End: 10-29-2024 Telephone encounter Lianna Moreno MD Work Phone: OB/Gynecology Comment on above: Breast Pump RX Start: 10-29-2024 End: 10-29-2024 Patient encounter procedure Kristen Smith MD Work Phone: OB/Gynecology Comment on above: 30 weeks gestation o f ([facility]) (Primary Dx); Supervision of high risk in second trimester ([facility]); Twin with single intrauterine , first trimester, fetus 1 ([facility]); AMA (advanced maternal age) multigravida 35+, second trimester ([facility]); Obesity affecting in second trimester, unspecified obesity type ([facility]) Start: 10-29-2024 End: 10-29-2024 ambulatory MIGUELITO L CHAMPION Facility:[facility] Start: 10-24-2024 End: 10-27-2024 ambulatory Miguelito [...] weeks gestation of ([facility]); Twin with single intrauterine , first trimester, fetus 1 ([facility]); AMA (advanced maternal age) multigravida 35+, second trimester ([facility]); Obesity affecting in second trimester, unspecified obesity type ([facility]); Hypothyroidism affecting in second trimester ([facility]); Rh negative state in antepartum period ([facility]); High-risk , multigravida of advanced maternal age, antepartum (HCC) High-risk , multigravida of advanced maternal age, antepartum ([facility]); 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 ([facility]); Class 2 obesity without serious comorbidity with body mass index (BMI) of 37.0 to 37.9 in adult, unspecified obesity type Start: 10-15-2024 End: 10-16-2024 ambulatory Lauren Madera APRN.CNP Work Phone: OB/Gynecology Comment on above: Hospital Form Start: 10-11-2024 End: 10-16-2024 Refill Miguelito Harshal Champion DO Work Phone: [facility] Comment on above: Refill Request Start: 09-19-2024 End: 09-19-2024 ambulatory MIGUELITO OROZCORISON Facility:[facility] Start: 09-18-2024 End: 09-18-2024 ambulatory MIGUELITO L CHAMPION Facility:[facility] Start: 08-23-2024 Encounter for genera l adult medical examination without abnormal findings MIGUELITO CHAMPION [facility] Start: 08-23-2024 End: 08-23-2024 Patient encounter procedure Miguelito Champion DO Work Phone: [facility] Comment on above: Wellness examination (Primary Dx); Screening for depression; Encounter for screening examination for other mental health and behavioral disorders; Acquired hypothyroidism; 20 weeks gestation of ([facility]) Start: 08-23-2024 End: 08-23-2024 Patient encounter status Miguelito Harshal Champion Work Phone: [facility] Start: 08-23-2024 End: 08-23-2024 ambulatory MIGUELITO CHAMPION Facility:[facility] Start: 08-22-2024 End: 08-22-2024 ambulatory MIGUELITO CHAMPION Facility:[facility] Start: 08-22-2024 End: 08-22-2024 Patient encounter procedure Whi Tech 1 Pest Control Pilot [facility] Maternal Medicine Comment on above: Family history of co ngenital heart defect (Primary Dx); with uncertain dates in first trimester ([facility]); High-risk , multigravida of advanced maternal age, antepartum ([facility]); 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 ([facility]); Class 2 obesity without serious comorbidity with body mass index (BMI) of 37.0 to 37.9 in adult, unspecified obesity type Twin with single intrauterine , first trimester, fetus 1 (HCC) (Primary Dx); 20 weeks gestation of ([facility]); Supervision of high risk in second trimester ([facility]); AMA (advanced maternal age) multigravida 35+, second trimester ([facility]); Obesity affecting in second trimester, unspecified obesity type (HCC); High-risk , multigravida of advanced maternal age, antepartum ([facility]) Start: 08-22-2024 End: 08-22-2024 ambulatory MIGUELITO CHAMPION Facility:[facility] Start: 07-25-2024 End: 09-24-2024 Follow-up encounter Kristen Smith MD Work Phone: OB/Gynecology Start: 07-25-2024 End: 07-25-2024 ambulatory MIGUELITO CHAMPION Facility:[facility] Start: 07-25-2024 End: 07-25-2024 Patient encounter procedure Whi Tech 1 Pest Control Pilot [facility]aternal [facility] Comment on above: screening for malformation using ultrasonics ([facility]) (Primary Dx); Obesity affecting in second trimester, unspecified obesity type (HCC); Twin with single intrauterine , first trimester, fetus 1 (HCC); 16 weeks gestation of ([facility]) Supervision of high risk in second trimester ([facility]) (Primary Dx); 16 weeks gestation of ([facility]); Twin with single intrauterine , first trimester, fetus 1 ([facility]); Obesity affecting in second trimester, unspecified obesity type ([facility]); AMA (advanced maternal age) multigravida 35+, second trimester ([facility]); Hypothyroidism affecting in second trimester ([facility]) Start: 07-15-2024 End: 09-14-2024 Follow-up encounter Miguelito L Champion DO Work Phone: [facility] [place] Start: 07-09-2024 End: 07-09-2024 ambulatory Joe Boyce MD Work Phone: OB/Gynecology Start: 07-09-2024 End: 07-09-2024 Follow-up encounter Joe Boyce MD Work Phone: OB/Gynecology Comment on above: Follow up Start: 07-04-2024 End: 07-04-2024 ambulatory MIGUELITO L CHAMPION Facility:[facility] Start: 07-04-2024 End: 07-04-2024 ambulatory MIGUELITO L CHAMPION Facility:[facility] Start: 07-04-2024 End: 07-08-2024 Telephone encounter Joe Boyce MD Work Phone: OB/Gynecology Comment on above: Appointment; Orders Start: 06-12-2024 End: 06-12-2024 ambulatory MIGUELITO L CHAMPION Facility:[facility] Start: 06-05-2024 End: 06-05-2024 ambulatory MIGUELITO L CHAMPION Facility:[facility] Start: 05-26-2024 End: 05-26-2024 Refill Miguelito [...] L Champion DO Work Phone: [facility] [place] Comment on above: Thyroid labs Start: 05-23-2024 End: 05-23-2024 Patient encounter procedure Shilohfredrick SousaKhoiolga CARPENTER.TUBE SIZER OPERATOR Work Phone: OB/Gynecology Comment on above: High-risk [...] 04-07-2024 End: 04-14-2024 Follow-up encounter Karen Azar APRN.TUBE SIZER OPERATOR Work Phone: [facility] [place] Comment on above: Acquired hypothyroid ism Start: 04-04-2024 End: 04-04-2024 ambulatory MIGUELITO L CHAMPION Facility:[facility] Start: 03-11-2024 End: 03-19-2024 Telephone encounter [...] 02-14-2024 End: 02-18-2024 Telephone encounter Karen Azar HAND FOLDER.TUBE SIZER OPERATOR Work Phone: [facility] Comment on above: Results Start: 02-04-2024 End: 02-04-2024 ambulatory MIGUELITO Harshal CHAMPION Facility:[facility] Start: 01-16-2024 End: 01-16-2024 Get Medical Advice Miguelito L Champion DO Work Phone: [facility] Comment on above: Lab orders Start: 12-12-2023 End: 12-20-2023 ambulatory Miguelito Harshal OrozcoChampion DO Work Phone: [facility] Comment on above: labs Start: 11-21-2023 End: 11-21-2023 ambulatory Miguelito Harshal OrozcoChampion DO Work Phone: [facility] Comment on above: Lab results Start: 11-21-2023 End: 11-23-2023 Telephone encounter Miguelito Orozcorison DO Work Phone: [facility] Comment on above: Results (thyroid) Start: 10-03-2023 End: 10-04-2023 ambulatory Miguelito Orozcorison DO Work Phone: [facility] Comment on above: vermox Start: 09-22-2023 Telephone encounter Miguelito Pierce arrison DO Work Phone: [facility] Comment on above: Medication Request Start: 08-08-2023 Telephone encounter Miguelito Pierce arrison DO Work Phone: [facility] Start: 07-21-2023 End: 05-23-2024 Patient encounter status Miguelito Orozcorison DO Work Phone: [facility] Start: 07-20-2023 End: 07-20-2023 Patient encounter procedure Miguelito L Champion DO Work Phone: [facility] Comment on above: Wellness examination (Primary Dx); Acquired hypothyroidism; Class 2 obesity with body mass index (BMI) of 37.0 to 37.9 in adult, unspecified obesity type, unspecified whether serious comorbidity present Start: 07-20-2023 End: 07-20-2023 Patient encounter status Miguelito L Champion DO Work Phone: [facility] Work Phone: Start: 03-31-2023 Refill Karen Azar HAND FOLDER.TUBE SIZER OPERATOR Work Phone: [facility] Comment on above: Refill Request Start: 03-22-2023 ambulatory Miguelito bryson DO Work Phone: [facility] Comment on above: Weight loss Start: 03-22-2023 Telephone encounter Miguelito aponte DO Work Phone: [facility] Comment on above: Patient Question Start: 10-31-2022 ambulatory Miguelito bryson DO Work Phone: [facility] Comment on above: Thyroid meds Start: 10-31-2022 Telephone encounter Miguelito aponte DO Work Phone: [facility] Comment on above: Thyroid Problem Start: 10-20-2022 ambulatory Miguelito bryson DO Work Phone: [facility] Comment on above: [employer] Revers[employer] thyroid Start: 10-20-2022 Telephone encounter Miguelito aponte DO Work Phone: [facility] Comment on above: Medication Problem Start: 10-13-2022 Refill Karen Azar HAND FOLDER.TUBE SIZER OPERATOR Work Phone: [facility] Comment on above: Med Change Request Start: 10-05-2022 Telephone encounter Miguelito aponte DO Work Phone: [facility] Start: 09-29-2022 ambulatory Miguelito bryson DO Work Phone: [facility] Comment on above: Labs Start: 09-23-2022 Telephone encounter Miguelito aponte DO Work Phone: [facility] Comment on above: Results Start: 09-22-2022 ambulatory Miguelito bryson DO Work Phone: [facility] Comment on above: Thyroid labs Start: 09-22-2022 End: 09-22-2022 Patient encounter procedure Karentim Azar HAND FOLDER.TUBE SIZER OPERATOR Work Phone: [facility] Comment on above: Wellness examination (Primary Dx); Acquired hypothyroidism Start: 09-22-2022 End: 09-22-2022 Patient encounter status Karen Azar APRN.TUBE SIZER OPERATOR Work Phone: [facility] Work Phone: Start: 08-28-2022 Patient encounter status Bc Champion DO Work Phone: [facility] Work Phone: Start: 08-28-2022 Telephone encounter Miguelito aponte DO Work Phone: [facility] Comment on above: Patient Question Start: 08-27-2022 ambulatory Miguelito bryson DO Work Phone: [facility] Comment on above: Yearly Health Screen ing Start: 07-03-2022 Telephone encounter Miguelito aponte DO Work Phone: [facility] Comment on above: Results Start: 06-25-2022 ambulatory Miguelito bryson DO Work Phone: [facility] Comment on above: Labs Start: 06-13-2022 End: 06-13-2022 Patient encounter procedure Paula Lang PA-C Work Phone: [facility] Comment on above: Cat scratch of forea rm, left, initial encounter (Primary Dx) Start: 03-10-2022 ambulatory Miguelito bryson DO Work Phone: [facility] Start: 03-10-2022 Patient encounter procedure Miguelito Champion DO Work Phone: [facility] Comment on above: Appointment Start: 12-09-2021 Refill Karen yap APRN.TUBE SIZER OPERATOR Work Phone: [facility] Comment on above: Refill Request Start: 08-07-2021 ambulatory Miguelito bryson DO Work Phone: [facility] Comment on above: Insurance Form Start: 07-06-2021 End: 07-06-2021 Patient encounter procedure Miguelito L Champion DO Work Phone: [facility] Comment on above: Wellness examination (Primary Dx); Acquired hypothyroidism Start: 07-06-2021 End: 07-06-2021 Patient encounter status Miguelito Champion DO Work Phone: [facility] Start: 06-13-2021 Refill Karen Zurawic k HAND FOLDER.TUBE SIZER OPERATOR Work Phone: [facility] Comment on above: Refill Request Start: 05-21-2021 Refill Karen Zurawic k HAND FOLDER.TUBE SIZER OPERATOR Work Phone: [facility] Comment on above: Refill Request Start: 05-18-2021 Telephone encounter Karen moreno HAND FOLDER.TUBE SIZER OPERATOR Work Phone: [facility] Comment on above: Results Start: 05-03-2021 Refill Karen Zurawic k HAND FOLDER.TUBE SIZER OPERATOR Work Phone: [facility] Comment on above: Refill Request Start: 04-29-2021 Patient encounter status Giovanni Dobbins MD Work Phone: [facility] Start: 04-29-2021 Refill Jorge Dobbins MD Work Phone: [facility] Comment on above: Refill Request Start: 04-06-2020 End: 04-06-2020 Subsequent hospital visit by physician Xr [facility] Work Phone: Radiology Comment on above: Foot injury, left, i nitial encounter [S99.922A] Start: 08-07-2018 End: 01-23-2019 Physical examination Miguelito Champion DO Work Phone: [facility] Start: 03-14-2018 End: 05-30-2019 Patient requested procedure Miguelito Champion DO Work Phone: [facility] Start: 12-24-2015 End: 03-28-2018 Patient encounter status Miguelito Champion DO Work Phone: [facility] Procedures Date Procedure Procedure Detail Performing Clinician Start: 10-15-2024 Antibody screen MIGUELITO CHAMPION Comment on above: Order Comment: Speci men Type: BLOOD SPECIMEN Ordering Facility: [facility] Address: [address] [place] [address] Performed By: #### [id number], [id number], [id number] #### [facility] CLIA [id number] [address] [place], [place] [address] [address] [place] Start: 10-15-2024 Us preg uterus after 1st trimest / gestation Jossie Gonzales MD Work Phone: Start: 08-23-2024 Adult depression screening assessment Miguelito Champion DO Work Phone: Start: 08-22-2024 Us preg uterus after 1st trimest 1/ gestation Shiloh Westfall HAND FOLDER.TUBE SIZER OPERATOR Work Phone: Start: 07-25-2024 Us preg uterus after 1st trimest 1/ gestation Kristen Smith MD Work Phone: Start: 06-12-2024 Antibody screen MIGUELITO CHAMPION Comment on above: Order Comment: Speci men Type: BLOOD SPECIMEN Ordering Facility: [facility] Address: [address] [place] [address] Performed By: #### [id number], [id number], [id number] #### [facility] CLIA [id number] [address] [place] [address] [place] Start: 05-23-2024 Us uterus limited 1/> fetuses Shiloh Westfall HAND FOLDER.TUBE SIZER OPERATOR Work Phone: Start: 07-06-2021 Adult depression screening assessment Miguelito Champion DO Work Phone: Start: 04-06-2020 Radex foot complete minimum 3 views Filiberto Groves HAND FOLDER.TUBE SIZER OPERATOR Work Phone: Start: 08-07-2018 Adult depression screening assessment Jorge Dobbins MD Work Phone: Plan of Treatment Date Care Activity Detail Author Start: 05-23-2029 Screening for malign ant neoplasm of cervix Cervical Cancer Screening [facility] Start: 08-23-2025 Annual PCP Team Commercial Account Officer kelley Disease Visit Annual PCP Team Chronic Disease Visit [facility] Start: 08-23-2025 Anxiety Screening Anxiety Screening [facility] Start: 08-23-2025 Depression Screening Depression Scre ening [facility] Start: 01-07-2025 ambulatory Ambulatory Facility:[facility] Start: 11-23-2024 End: 02-22-2025 Thyrotropin [Units/volume] in Serum or Plasma THYROID STIMULATING HORMONE Lab Routine Acquired hypothyroidism Expected: 11/23/2024, Expires: 02/22/2025 [facility] Work Phone: Comment on above: Expected: 11/23/2024 , Expires: 02/22/2025 Start: 11-23-2024 End: 02-22-2025 Thyroxine (T4) free [Mass/volume] in Serum or Plasma T4 FREE/FREE THYROXINE Lab Routine Acquired hypothyroidism Expected: 11/23/2024, Expires: 02/22/2025 [facility] Comment on above: Expected: 11/23/2024 , Expires: 02/22/2025 Start: 11-12-2024 End: 11-12-2024 Patient encounter procedure Maternal Medicine Comment on above: Growth Growth /OB Start: 11-12-2024 RSV Vaccine (1 - Ris k 1-dose series) RSV Vaccine (1 - Risk 1-dose series) [facility] Start: 10-29-2024 End: 10-29-2024 Patient encounter procedure 10/29/2024 10:40 AM EDT Routine Office Visit OB/Gynecology [address] [place], [place] [id number] Kristen Smith MD [address] [place], [place] [id number] OB OB/Gynecology Comment on above: OB Start: 10-15-2024 End: 10-15-2024 ambulatory 10/15/2024 3:00 PM EDT Results Only [facility] [place] [facility] [address] [place] [id number] glucose lab-Requesting the dye free lemon pilot point flavor [facility] Comment on above: glucose lab-Requesti ng the dye free lemon pilot point flavor Start: 10-15-2024 End: 10-15-2024 Patient encounter procedure Maternal Medicine Comment on above: Growth Growth/glucose/OB Start: 10-15-2024 End: 01-14-2025 Thyrotropin [Units/volume] in Serum or Plasma [facility] Work Phone: Comment on above: Expected: 10/15/2024 , Expires: 01/14/2025 Start: 10-15-2024 End: 01-14-2025 Thyroxine (T4) free [Mass/volume] in Serum or Plasma [facility] Comment on above: Expected: 10/15/2024 , Expires: 01/14/2025 Start: 10-13-2024 Influenza vaccination [facility] Start: 09-23-2024 End: 12-23-2024 Thyrotropin [Units/volume] in Serum or Plasma THYROID STIMULATING HORMONE Lab Routine Acquired hypothyroidism Expected: 09/23/2024, Expires: 12/23/2024 [facility] Work Phone: Comment on above: Expected: 09/23/2024 , Expires: 12/23/2024 Start: 09-23-2024 End: 12-23-2024 Thyroxine (T4) free [Mass/volume] in Serum or Plasma T4 FREE/FREE THYROXINE Lab Routine Acquired hypothyroidism Expected: 09/23/2024, Expires: 12/23/2024 [facility] Comment on above: Expected: 09/23/2024 , Expires: 12/23/2024 Start: 09-18-2024 End: 09-18-2024 Patient encounter procedure 09/18/2024 2:40 PM EDT Routine Office Visit OB/Gynecology [address] [place] [address] Kristen Smith MD [address] [place] [address] OB OB/Gynecology Comment on above: OB Start: 08-23-2024 End: 08-23-2024 Patient encounter procedure 08/23/2024 9:00 AM EDT Office Visit [facility] [address] [place] [address] Miguelito Champion, DO [address] [place] [address] Physical [facility] Comment on above: Physical Start: 08-22-2024 End: 08-22-2024 Patient encounter procedure OB/Gynecology Comment on above: Twins/Anatomy/OB Anatomy/OB Start: 08-22-2024 End: 08-22-2024 Patient encounter procedure Maternal Medicine Comment on above: Twins/Anatomy Anatomy Start: 07-25-2024 End: 07-25-2024 Patient encounter procedure Maternal Medicine Comment on above: Early Anatomy OB Start: 07-19-2024 Annual PCP Team Commercial Account Officer kelley Disease Visit Annual PCP Team Chronic Disease Visit [facility] Start: 07-08-2024 End: 07-08-2025 OBSTETRIC ULTRASOUND WHI OBSTETRIC ULTRASOUND WHI Anc Imaging Routine Twin with single intrauterine , first trimester, fetus 1 (HCC) 13 weeks gestation of (HCC) Obesity affecting in second trimester, unspecified obesity type (HCC) Expected: 07/08/2024, Expires: 07/08/2025 [facility] Work Phone: Comment on above: Expected: 07/08/2024 , Expires: 07/08/2025 Start: 07-04-2024 End: 07-04-2024 Patient encounter procedure Maternal Medicine Comment on above: Twin/Nuchal Twins/Nuchal/OB Start: 06-25-2024 End: 09-24-2024 Thyrotropin [Units/volume] in Serum or Plasma THYROID STIMULATING HORMONE Lab Routine Hypothyroidism, acquired Expected: 06/25/2024, Expires: 09/24/2024 [facility] Work Phone: Comment on above: Expected: 06/25/2024 , Expires: 09/24/2024 Start: 06-25-2024 End: 09-24-2024 Thyroxine (T4) free [Mass/volume] in Serum or Plasma T4 FREE/FREE THYROXINE Lab Routine Hypothyroidism, acquired Expected: 06/25/2024, Expires: 09/24/2024 [facility] Comment on above: Expected: 06/25/2024 , Expires: 09/24/2024 Start: 06-05-2024 End: 06-05-2024 Patient encounter procedure 06/05/2024 1:00 PM EDT Routine Office Visit OB/Gynecology [address] [place] [address] Remote, [employer] [address] [place] [address] Twins /Dating OB/Gynecology Comment on above: Twins /Dating Start: 05-23-2024 End: 08-22-2024 ANEMIA REFLEX PANEL ANEMIA REFLEX PANEL Lab Routine with uncertain dates in first trimester (HCC) Expected: 05/23/2024, Expires: 08/22/2024 [facility] Work Phone: Comment on above: Expected: 05/23/2024 , Expires: 08/22/2024 Start: 05-23-2024 End: 08-22-2024 Chromosome 21 trisomy [Presence] in Blood or Tissue by Cytogenetics [id number] PLUS Lab Routine Twin gestation in first trimester, unspecified multiple gestation type (HCC) Expected: 05/23/2024, Expires: 08/22/2024 [facility] Comment on above: Expected: 05/23/2024 , Expires: 08/22/2024 Start: 05-23-2024 End: 08-22-2024 Hemoglobin A1c in Blood HEMOGLOBIN A1C Lab Routine with uncertain dates in first trimester (HCC) Expected: 05/23/2024, Expires: 08/22/2024 [facility] Comment on above: Expected: 05/23/2024 , Expires: 08/22/2024 Start: 05-23-2024 End: 08-22-2024 Hepatitis B virus surface Ag [Presence] in Serum HEPATITIS B SURFACE ANTIGEN Lab Routine with uncertain dates in first trimester (HCC) Expected: 05/23/2024, Expires: 08/22/2024 [facility] Comment on above: Expected: 05/23/2024 , Expires: 08/22/2024 Start: 05-23-2024 End: 08-22-2024 Hepatitis C virus Ab [Presence] in Serum HEPATITIS C ANTIBODY IA WITH CONFIRMATION Lab Routine with uncertain dates in first trimester (HCC) Expected: 05/23/2024, Expires: 08/22/2024 [facility] Comment on above: Expected: 05/23/2024 , Expires: 08/22/2024 Start: 05-23-2024 End: 08-22-2024 HIV 1+2 Ab [Presence] in Serum or Plasma by Immunoassay HIV 1/2 COMBO WITH REFLEX TO DIFFERENTIATION Lab Routine with uncertain dates in first trimester (HCC) Expected: 05/23/2024, Expires: 08/22/2024 [facility] Comment on above: Expected: 05/23/2024 , Expires: 08/22/2024 Start: 05-23-2024 End: 05-23-2025 OBSTETRIC ULTRASOUND [facility] Comment on above: Expected: 05/23/2024 , Expires: 05/23/2025 Start: 05-23-2024 End: 08-22-2024 RUBELLA IGG ANTIBODY RUBELLA IGG ANTIBODY Lab Routine with uncertain dates in first trimester (HCC) Expected: 05/23/2024, Expires: 08/22/2024 [facility] Comment on above: Expected: 05/23/2024 , Expires: 08/22/2024 Start: 05-23-2024 End: 08-22-2024 SYPHILIS TREPONEMAL W/REFLEX SYPHILIS TREPONEMAL W/REFLEX Lab Routine with uncertain dates in first trimester (HCC) Expected: 05/23/2024, Expires: 08/22/2024 [facility] Comment on above: Expected: 05/23/2024 , Expires: 08/22/2024 Start: 05-23-2024 End: 08-22-2024 TYPE + SCREEN TYPE + SCREEN Blood Bank Routine with uncertain dates in first trimester (HCC) Expected: 05/23/2024, Expires: 08/22/2024 [facility] Comment on above: Expected: 05/23/2024 , Expires: 08/22/2024 Start: 05-23-2024 End: 05-23-2024 Patient encounter procedure 05/23/2024 8:15 AM EDT Initial Office Visit OB/Gynecology [address] [place] [id number] Shiloh Westfall APRN.TUBE SIZER OPERATOR [address] [place] [address] New OB=LMP 2 OB/Gynecology Comment on above: New OB=LMP 2/ Start: 05-05-2024 End: 08-04-2024 Thyrotropin [Units/volume] in Serum or Plasma THYROID STIMULATING HORMONE Lab Routine Hypothyroidism, acquired Expected: 05/05/2024, Expires: 08/04/2024 [facility] Work Phone: Comment on above: Expected: 05/05/2024 , Expires: 08/04/2024 Start: 05-05-2024 End: 08-04-2024 Thyroxine (T4) free [Mass/volume] in Serum or Plasma T4 FREE/FREE THYROXINE Lab Routine Hypothyroidism, acquired Expected: 05/05/2024, Expires: 08/04/2024 [facility] Comment on above: Expected: 05/05/2024 , Expires: 08/04/2024 Start: 03-25-2024 Urine microalbumin profile [facility] Start: 03-17-2024 End: 06-16-2024 Thyrotropin [Units/volume] in Serum or Plasma THYROID STIMULATING HORMONE Lab Routine Acquired hypothyroidism Expected: 03/17/2024, Expires: 06/16/2024 [facility] Work Phone: Comment on above: Expected: 03/17/2024 , Expires: 06/16/2024 Start: 03-17-2024 End: 06-16-2024 Thyroxine (T4) free [Mass/volume] in Serum or Plasma T4 FREE/FREE THYROXINE Lab Routine Acquired hypothyroidism Expected: 03/17/2024, Expires: 06/16/2024 [facility] Comment on above: Expected: 03/17/2024 , Expires: 06/16/2024 Start: 03-17-2024 End: 06-16-2024 Triiodothyronine (T3) [Mass/volume] in Serum or Plasma T3 Lab Routine Acquired hypothyroidism Expected: 03/17/2024, Expires: 06/16/2024 [facility] Comment on above: Expected: 03/17/2024 , Expires: 06/16/2024 Start: 10-14-2023 Covid-19 Vaccine ( season) Covid-19 Vaccine () [facility] Start: 10-14-2023 Influenza vaccination [facility] Start: 10-08-2023 End: 01-07-2024 CBC panel - Blood by Automated count COMPLETE BLOOD COUNT Lab Routine Acquired hypothyroidism Leukocytosis, unspecified type Expected: 10/08/2023, Expires: 01/07/2024 [facility] Comment on above: Expected: 10/08/2023 , Expires: 01/07/2024 Start: 10-08-2023 End: 01-07-2024 Thyrotropin [Units/volume] in Serum or Plasma THYROID STIMULATING HORMONE Lab Routine Acquired hypothyroidism Expected: 10/08/2023, Expires: 01/07/2024 [facility] Work Phone: Comment on above: Expected: 10/08/2023 , Expires: 01/07/2024 Start: 10-08-2023 End: 01-07-2024 Thyroxine (T4) free [Mass/volume] in Serum or Plasma T4 FREE/FREE THYROXINE Lab Routine Acquired hypothyroidism Expected: 10/08/2023, Expires: 01/07/2024 [facility] Comment on above: Expected: 10/08/2023 , Expires: 01/07/2024 Start: 10-08-2023 End: 01-07-2024 Triiodothyronine (T3) Free [Mass/volume] in Serum or Plasma T3, FREE Lab Routine Acquired hypothyroidism Expected: 10/08/2023, Expires: 01/07/2024 [facility] Comment on above: Expected: 10/08/2023 , Expires: 01/07/2024 Start: 09-23-2023 ANNUAL PCP TEAM RADIOISOTOPE TECHNICIAN KELLEY DISEASE VISIT ANNUAL PCP TEAM CHRONIC DISEASE VISIT [facility] Start: 09-23-2023 COVID-19 VACCINE (#1) COVID-19 VACCI NE (#1) [facility] Comment on above: Postponed from 09/18 (Declined at this time) Start: 09-23-2023 HPV TESTING HPV TESTING [facility] Comment on above: Postponed from 03/21 (Declined at this time) Start: 09-23-2023 Screening for malign ant neoplasm of cervix HPV Testing [facility] Comment on above: Postponed from 03/21 (Declined at this time) Start: 03-26-2023 PAP TESTING PAP TESTING [facility] Start: 03-26-2023 Screening for malign ant neoplasm of cervix Pap Testing [facility] Start: 02-12-2023 Behavioral Health Screening Behavioral Health Screening [facility] Start: 02-12-2023 Depression Assessment Depression Ass essment [facility] Start: 10-26-2022 End: 12-26-2022 Thyrotropin [Units/volume] in Serum or Plasma TSH BLD Lab Routine Acquired hypothyroidism Expected: 10/26/2022, Expires: 12/26/2022 [facility] Work Phone: Comment on above: Expected: 10/26/2022 , Expires: 12/26/2022 Start: 10-26-2022 End: 12-26-2022 Thyroxine (T4) free [Mass/volume] in Serum or Plasma T4 FREE/FREE THYROX Lab Routine Acquired hypothyroidism Expected: 10/26/2022, Expires: 12/26/2022 [facility] Work Phone: Comment on above: Expected: 10/26/2022 , Expires: 12/26/2022 Start: 10-26-2022 End: 12-26-2022 Triiodothyronine (T3) [Mass/volume] in Serum or Plasma T3 BLD Lab Routine Acquired hypothyroidism Expected: 10/26/2022, Expires: 12/26/2022 [facility] Work Phone: Comment on above: Expected: 10/26/2022 , Expires: 12/26/2022 Start: 10-13-2022 Covid-19 Vaccine () Covid-19 Vaccine () [facility] Start: 10-13-2022 Influenza vaccination [facility] Start: 09-11-2022 End: 11-11-2022 THYROID PEROXIDASE ANTIBODY BLOOD THYROID PEROXIDASE ANTIBODY BLOOD Lab Routine Acquired hypothyroidism Expected: 09/11/2022 (Approximate), Expires: 11/11/2022 [facility] Work Phone: Comment on above: Expected: 09/11/2022 (Approximate), Expires: 11/11/2022 Start: 09-11-2022 End: 11-11-2022 Thyrotropin [Units/volume] in Serum or Plasma TSH BLD Lab Routine Acquired hypothyroidism Expected: 09/11/2022 (Approximate), Expires: 11/11/2022 [facility] Work Phone: Comment on above: Expected: 09/11/2022 (Approximate), Expires: 11/11/2022 Start: 09-11-2022 End: 11-11-2022 Thyroxine (T4) free [Mass/volume] in Serum or Plasma T4 FREE/FREE THYROX Lab Routine Acquired hypothyroidism Expected: 09/11/2022 (Approximate), Expires: 11/11/2022 [facility] Work Phone: Comment on above: Expected: 09/11/2022 (Approximate), Expires: 11/11/2022 Start: 09-11-2022 End: 11-11-2022 Triiodothyronine (T3) Free [Mass/volume] in Serum or Plasma T3 FREE BLD Lab Routine Acquired hypothyroidism Expected: 09/11/2022 (Approximate), Expires: 11/11/2022 [facility] Work Phone: Comment on above: Expected: 09/11/2022 (Approximate), Expires: 11/11/2022 Start: 07-06-2022 Adult depression screening assessment DEPRESSION SCREENING [facility] Start: 07-06-2022 ANNUAL PCP TEAM RADIOISOTOPE TECHNICIAN KELLEY DISEASE VISIT ANNUAL PCP TEAM CHRONIC DISEASE VISIT [facility] Start: 07-06-2022 COVID-19 VACCINE (#1) COVID-19 VACCI NE (#1) [facility] Comment on above: Postponed from 03/21 (Declined at this time) Postponed from 09/18 (Declined at this time) Start: 02-12-2022 DEPRESSION ASSESSMENT DEPRESSION ASS ESSMENT [facility] Start: 10-13-2021 Influenza vaccination [facility] Start: 07-06-2021 End: 09-05-2021 T3 FREE BLD [facility] Work Phone: Comment on above: Expected: 07/06/2021 , Expires: 09/05/2021 Start: 07-06-2021 End: 09-05-2021 T4 FREE/FREE THYROX [facility] Work Phone: Comment on above: Expected: 07/06/2021 , Expires: 09/05/2021 Start: 07-06-2021 End: 09-05-2021 THYROID PEROXIDASE ANTIBODY BLOOD [facility] Work Phone: Comment on above: Expected: 07/06/2021 , Expires: 09/05/2021 Start: 07-06-2021 End: 09-05-2021 Thyrotropin [Units/volume] in Serum or Plasma [facility] Work Phone: Comment on above: Expected: 07/06/2021 , Expires: 09/05/2021 Start: 05-02-2021 End: 07-02-2021 CBC panel - Blood by Automated count CBC Lab Routine Acquired hypothyroidism Expected: 05/02/2021, Expires: 07/02/2021 [facility] Work Phone: Comment on above: Expected: 05/02/2021 , Expires: 07/02/2021 Start: 05-02-2021 End: 07-02-2021 Comprehensive metabolic 2000 panel - Serum or Plasma COMP METABOLIC PANEL Lab Routine Acquired hypothyroidism Expected: 05/02/2021, Expires: 07/02/2021 [facility] Work Phone: Comment on above: Expected: 05/02/2021 , Expires: 07/02/2021 Start: 05-02-2021 End: 07-02-2021 Hemoglobin A1c/Hemoglobin.total in Blood HGB A1C Lab Routine Wellness examination Expected: 05/02/2021, Expires: 07/02/2021 [facility] Work Phone: Comment on above: Expected: 05/02/2021 , Expires: 07/02/2021 Start: 05-02-2021 End: 07-02-2021 LIPID PANEL BASIC LIPID PANEL BASIC Lab Routine Wellness examination Expected: 05/02/2021, Expires: 07/02/2021 [facility] Work Phone: Comment on above: Expected: 05/02/2021 , Expires: 07/02/2021 Start: 05-02-2021 End: 07-02-2021 T3 BLD T3 BLD Lab Routine Wellness examination Expected: 05/02/2021, Expires: 07/02/2021 [facility] Work Phone: Comment on above: Expected: 05/02/2021 , Expires: 07/02/2021 Start: 05-02-2021 End: 07-02-2021 T4 FREE/FREE THYROX T4 FREE/FREE THYROX Lab Routine Wellness examination Expected: 05/02/2021, Expires: 07/02/2021 [facility] Work Phone: Comment on above: Expected: 05/02/2021 , Expires: 07/02/2021 Start: 05-02-2021 End: 07-02-2021 Thyrotropin [Units/volume] in Serum or Plasma TSH BLD Lab Routine Wellness examination Expected: 05/02/2021, Expires: 07/02/2021 [facility] Work Phone: Comment on above: Expected: 05/02/2021 , Expires: 07/02/2021 Start: 05-02-2021 End: 07-02-2021 VITAMIN D 25 HYDROXY VITAMIN D 25 HYDROXY Lab Routine Wellness examination Expected: 05/02/2021, Expires: 07/02/2021 [facility] Work Phone: Comment on above: Expected: 05/02/2021 , Expires: 07/02/2021 Start: 03-26-2021 Screening for malign ant neoplasm of cervix Cervical Cancer Screening [facility] Start: 02-12-2021 DEPRESSION ASSESSMENT DEPRESSION ASS ESSMENT [facility] Start: 10-13-2020 Influenza vaccination INFLUENZA (#1) [facility] Start: 05-29-2020 ANNUAL PCP TEAM RADIOISOTOPE TECHNICIAN KELLEY DISEASE VISIT ANNUAL PCP TEAM CHRONIC DISEASE VISIT [facility] Start: 08-08-2019 Adult depression screening assessment DEPRESSION SCREENING [facility] Start: 2019 HPV TESTING HPV TESTING [facility] Start: 12-15-2011 HPV VACCINE (3 - 3-d ose series) HPV VACCINE (3 - 3-dose series) [facility] Start: 11-06-2011 HPV Vaccine (3 - 3-d ose series) HPV Vaccine (3 - 3-dose series) [facility] Start: 2007 Anxiety Screening Anxiety Screening [facility] Start: 2007 Depression Screening Depression Scre ening [facility] Start: 1994 COVID-19 VACCINE (1) COVID-19 VACCIN E (1) [facility] Start: 1989 COVID-19 VACCINE (#1) COVID-19 VACCI NE (#1) [facility] Bacteria identified in Urine by Culture BACTERIAL CULTURE, URINE Microbiology Routine with uncertain dates in first trimester ([facility]) 05/23/2024 9:08 AM EDT [facility] Chlamydia trachomatis+Neisseria gonorrhoeae DNA [Presence] in Unspecified specimen by SAMSON with probe detection GONORRHEA/CHLAMYDIA NAAT Lab Routine with uncertain dates in first trimester ([facility]) 05/23/2024 9:08 AM EDT [facility] End: 02-21-2025 OBSTETRIC ULTRASOUND WHI OBSTETRIC ULTRASOUND I Anc Imaging Routine High-risk , multigravida of advanced maternal age, antepartum (HCC) 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 ([facility]) Class 2 obesity without serious comorbidity with body mass index (BMI) of 37.0 to 37.9 in adult, unspecified obesity type Once per month for 5 Occurrences starting 08/25/2024 until 02/21/2025 [facility] Work Phone: Comment on above: Once per month for 5 Occurrences starting 08/25/2024 until 02/21/2025 PAP TEST PAP TEST Lab Omaira newell Screening for cervical cancer Special screening examination for human papillomavirus (HPV) 05/23/2024 9:08 AM EDT [facility] TRICHOMONAS VAGINALI S NAAT TRICHOMONAS VAGINALIS NAAT Lab Routine Screen for STD (sexually transmitted disease) 05/23/2024 9:08 AM EDT [facility] Immunizations Immunization Date Immunization Notes Care Provider Ivonne bhatt 10-15-2024 RHO(D) immune globul in- IV or IM Lauren Madera APRN.CNP Work Phone: [facility] 05-08-2019 RHO(D) immune globul in- IV or IM Jorge Dobbins MD Work Phone: [facility] 03-26-2018 RHO(D) immune globul in- IV or IM Jorge Dobbins MD Work Phone: [facility] Work Phone: 12-05-2017 influenza virus vaccine, unspecified formulation Jorge Dobbins MD Work Phone: [facility] 12-05-2017 influenza, seasonal, injectable Jorge Dobbins MD Work Phone: [facility] 11-17-2016 influenza virus vaccine, unspecified formulation Jorge Dobbins MD Work Phone: [facility] 11-24-2015 influenza virus vaccine, unspecified formulation Jorge Dobbins MD Work Phone: [facility] 11-27-2014 influenza virus vaccine, unspecified formulation Jorge Dobbins MD Work Phone: [facility] 04-02-2014 RHO(D) immune globul in- IV or IM Jorge Dobbins MD Work Phone: [facility] 03-25-2014 tetanus toxoid, redu gracie diphtheria toxoid, and acellular pertussis vaccine, adsorbed Jorge Dobbins MD Work Phone: [facility] 11-20-2013 influenza, seasonal, injectable Jorge Dobbins MD Work Phone: [facility] Work Phone: 11-20-2012 influenza virus vaccine, whole virus Jorge Dobbins MD Work Phone: [facility] 11-13-2011 influenza virus vaccine, live, attenuated, for intranasal use Jorge Dobbins MD Work Phone: [facility] 08-14-2011 human papilloma viru s vaccine, quadrivalent Jorge Dobbins MD Work Phone: [facility] Work Phone: 05-11-2011 varicella virus vaccine Will tommie Dobbins MD Work Phone: [facility] 12-14-2008 tuberculin skin test ; purified protein derivative solution, intradermal Miguelito Champion DO Work Phone: [facility] 12-01-2008 influenza virus vaccine, unspecified formulation Jorge Dobbins MD Work Phone: [facility] Work Phone: 07-15-2008 tetanus toxoid, redu gracie diphtheria toxoid, and acellular pertussis vaccine, adsorbed Jorge Dobbins MD Work Phone: [facility] 07-07-2008 hepatitis B vaccine, adult dosage Jorge Dobbins MD Work Phone: [facility] Work Phone: 07-07-2008 human papilloma viru s vaccine, quadrivalent Jorge Dobbins MD Work Phone: [facility] Work Phone: 05-10-2008 hepatitis B vaccine, adult dosage Jorge Dobbins MD Work Phone: [facility] Work Phone: 01-27-2008 tuberculin skin test ; purified protein derivative solution, intradermal Miguelito Champion DO Work Phone: [facility] 01-20-2008 tuberculin skin test ; purified protein derivative solution, intradermal Miguelito Champion DO Work Phone: [facility] Payers Date Payer Category Payer Self-pay 2023 Private Health Insurance [id number] 2023 Private Health Insurance [id number] 2021 Unknown [employer] PPO [id number] 2021-Present [phone] [address] [place] [address] PPO [id number] 2018 Unknown [employer] PPO OOS [id number] 2018-Present [phone] [address] [place] [address] PPO [id number] 2018 Unknown [id number] Unknown [id number] Unknown [id number] Social History Date Type Detail Facility Start: 08-14-2011 End: 06-13-2022 Tobacco smoking status OHIS Never smoked tobacco [facility] Start: 04-06-2020 End: 10-29-2024 Alcohol intake Current non-drinker of alcohol (finding) [facility] Start: 05-28-2019 History SDOH Alcohol Frequency 1 [facility] Start: 05-28-2019 History SDOH Alcohol Std Drinks 98 [facility] Start: 10-14-2013 History SDOH Alcohol Comment very rarely, maybe 2x yearly- not when [facility] Start: 05-28-2019 History SDOH Social Connections Phone 5 [facility] Start: 05-28-2019 History SDOH Social Connections Get Together 2 [facility] Start: 05-28-2019 History SDOH Social Connections Amish 3 [facility] Start: 05-28-2019 History SDOH Physical Activity DPW 0 [facility] Start: 05-28-2019 Education 15 [facility] Start: 1989 Sex Assigned At Female [facility] Start: 03-07-2020 End: 07-06-2021 Exposure to SARS-CoV-2 (event) Not sure [facility] Work Phone: Start: 08-14-2011 End: 06-13-2022 Tobacco use and exposure Smokeless tobacco non-user [facility] Work Phone: Start: 05-28-2019 End: 09-21-2022 History of Social function [facility] Start: 05-28-2019 End: 09-21-2022 Social connection and isolation panel [facility] Do you belong to any clubs or organizations such as denominational groups, unions, fraternal or athletic groups, or school groups? Yes [facility] Are you now , , , , never or living with a partner? [facility] How often to you hav e a drink containing alcohol? Never [facility] Start: 01-14-2012 How many standard drinks containing alcohol do you have on a typical day? Patient refused [facility] Do you feel stress - tense, restless, nervous, or anxious, or unable to sleep at night because your mind is troubled all the time - these days [OSQ] Only a little [facility] (I/We) worried wheth er (my/our) food would run out before (I/we) got money to buy more. Never true [facility] Start: 04-22-2018 Gender identity Identifies as female gender (finding) [facility] Start: 04-22-2018 Sexual orientation Heterosexual (finding) [facility] How hard is it for y ou to pay for the very basics like food, housing, medical care, and heating Not very hard [facility] In the past 12 month s, was there a time when you were not able to pay the mortgage or rent on time? No [facility] Start: 04-16-2024 [facility] Do you feel stress - tense, restless, nervous, or anxious, or unable to sleep at night because your mind is troubled all the time - these days [OSQ] Not at all [facility] Goals Date Patient Goal Desired Activity /State Personal health goal Functional Status Date Assessment Result Facility 08-17-2024 Total score [AUDIT-C] 0 08/18/19 25 9:57 AM EDT Shanel Ordoñez [facility] 08-17-2024 How often to you hav e a drink containing alcohol? Never 08/17/2024 9:57 AM EDT Shanel Ordoñez Never [facility] 08-17-2024 Functional status Patient does n ot drink 08/17/2024 9:57 AM EDT Shanel Ordoñez Patient does not drink [facility] 08-17-2024 How often do you hav e 6 or more drinks on 1 occasion? Never 08/17/2024 9:57 AM EDT Shanel Ordoñez Never [facility] 08-21-2014 Are you deaf, or do you have serious difficulty hearing No 08/21/2014 8:49 AM EDT Juliana Huston RN No [facility] 08-21-2014 Are you blind, or do you have serious difficulty seeing, even when wearing glasses No 08/21/2014 8:49 AM Juliana Castro, GILMAR No [facility] 08-21-2014 Do you have serious difficulty walking or climbing stairs No 08/21/2014 8:49 AM Juliana Castro, GILMAR No [facility] 08-21-2014 Do you have difficul ty dressing or bathing No 08/21/2014 8:49 AM JOHANNYT Juliana Huston, GILMAR No [facility] 08-21-2014 Because of a physica l, mental, or emotional condition, do you have difficulty doing errands alone such as visiting a physician's office or shopping No 08/21/2014 8:49 AM JOHANNYT Juliana Huston, GILMAR No [facility] Mental Status Date Assessment Result Facility 08-21-2014 Because of a physica l, mental, or emotional condition, do you have serious difficulty concentrating, remembering, or making decisions No 08/21/2014 8:49 AM Juliana Castro RN No [facility] Clinical Notes 12-19-2018 to 12-25-2024 Telephone Encounter - Juliana Huston RN - 10/29/2024 12:33 PM EDTTelephone Encounter - Juliana Huston RN - 10/29/2024 12:33 PM EDTPatient Kristen Jerez RN - 10/15/2024 4:29 PM EDT Note Date & Type Note Facility 12-25-2024 Note HNO ID: [id number] Author: JOE BOYCE MD Service: ? Author [...] Irregular Interpretation: Reactive SIGNATURE: Joe Boyce DO [facility] 12-24-2024 Note HNO ID: [id number] Author: GERA SINGH, Semaj Service: ? Author Type: Patient Erp Pm Type: Progress Notes Filed: 12/24/2024 07:11 Note Text: POPULATION HEALTH NAVIGATION OUTREACH Action/FYI Added artificial pearl maker to the chart through a note. No direct outreach was made. Reason for Outreach Medicaid OB/Peds Care Gaps due: N/A Patient Contacted: Unable or unnecessary to reach patient: artificial pearl maker added Navigation Signature: Gera Singh Population Health Navigator December 24, 2024 7:10 AM [facility] 12-24-2024 Note Patient Outreach (NE TNAV) NENA LEIVA ([id number]) 1990 F Date Time Provider Department 12/24/24 GERA SINGH During your visit today, we recorded the following information about you: Gera Singh 12/24/2024 7:11 AM Signed POPULATION HEALTH NAVIGATION OUTREACH Action/FYI Added artificial pearl maker to the chart through a note. No direct outreach was made. Reason for Outreach Medicaid OB/Peds Care Gaps due: N/A Patient Contacted: Unable or unnecessary to reach patient: [place] artificial pearl maker added Navigation Signature: Gera Singh Population Health Navigator December 24, 2024 7:10 AM Allergies As of Date: 12/24/2024 Noted Allergy Reaction BEES 07/07/2008 7 - Swelling LATEX 07/07/2008 4 - Hives Date Reviewed: 12/18/2024 Reviewed by: Kristen Smith MD - Fully Assessed Reason for Visit: Population Health Navigation Outreach [3910] Cmt: to PCP/OB Prescriptions as of 12/24/2024 - thyroid (DERMATOLOGY TEACHER THYROID) 120 mg tablet Take 1 tablet [...] Encounter Status:Closed by GERA SINGH on 12/24/24 [facility] 12-18-2024 Note HNO ID: [id number] Author: KRISTEN SMITH MD Service: ? Author Type: Physician Type: Progress Notes Filed: 12/18/2024 12:18 Note Text: NST SUMMARY PROVIDER ASSESSMENT AND INTERPRETATION Indications for NST: AMA and Obesity Baseline: 145 Variability: Moderate Accelerations: Present 15 X 15 Decelerations: None Interpretation: Reactive SIGNATURE: Kristen Smith MD [facility] 10-29-2024 Telephone encounter Note Order signed and faxed. Juliana Huston RN [facility] 10-29-2024 Miscellaneous Notes Order signed and faxed. Juliana Huston RN Received breast pump RX from [employer]. To DM to sign. Kristen Chang RN documented in this encounter [facility] 10-29-2024 Miscellaneous Notes S: Nena Leiva is [...] weeks gestation of ([facility]) - ICD9: V22.2, ICD10: Z3A.30 (primary diagnosis) 2. Supervision of high risk in second trimester ([facility]) - ICD9: V23.9, ICD10: O09.92 3. Twin with single intrauterine , first trimester, fetus 1 ([facility]) - ICD9: 651.33, ICD10: O31.21X1 4. AMA (advanced maternal age) multigravida 35+, second trimester ([facility]) - ICD9: 659.63, ICD10: O09.522 5. Obesity affecting in second trimester, unspecified obesity type ([facility]) - ICD9: 649.13, ICD10: O99.212 BMI 35 Weekly NSTs at 36 Growth q 4 Kristen Smith MD documented in this encounter [facility] 10-29-2024 Progress note Formatting of t his [...] weeks gestation of ([facility]) - ICD9: V22.2, ICD10: Z3A.30 (primary diagnosis) 2. Supervision of high risk in second trimester ([facility]) - ICD9: V23.9, ICD10: O09.92 3. Twin with single intrauterine , first trimester, fetus 1 ([facility]) - ICD9: 651.33, ICD10: O31.21X1 4. AMA (advanced maternal age) multigravida 35+, second trimester ([facility]) - ICD9: 659.63, ICD10: O09.522 5. Obesity affecting in second trimester, unspecified obesity type (HCC) - ICD9: 649.13, ICD10: O99.212 BMI 35 Weekly NSTs at 36 Growth q 4 Kristen Smith MD [facility] 10-29-2024 Instructions Tasha Carias MA - 10/29/2024 10:57 AM EDT SEQUENTIAL SCREENINGS The [facility] offers sequential screenings for women who are [...] It will require an appointment with our zyglo technician. This is not an ultrasound performed [...] the above symptoms, contact our office at [phone] and ask to speak with a nurse. After hours, you can call doctors registry at [phone] OR call [facility] at [phone] and ask to have the doctor container finishing inspector paged. If you consider this an emergency, dial 10-13-0 or go to your nearest emergency department. NEED HELP? Are you dealing with a violent or abusive relationship? Are you a victim of rape or sexual assult? Call [facility] ([place]) 24 hour Crisis Hotline: 933.111.3117 or 052-319-1308. MANUAL Your Guide to a Healthy manual is now on-line. Visit [email or web address] to download your free copy documented in this encounter [facility] 10-29-2024 Telephone encounter Note Received breast pump RX from [employer]. To DM to sign. Kristen Chang, RN [facility] 10-27-2024 Telephone encounter Note See telephone note [facility] Work Phone: 10-27-2024 Miscellaneous Notes See telephone note documented in this encounter [facility] 10-24-2024 Telephone encounter Note Pt. informed via my chart. [facility] Work Phone: 10-24-2024 Miscellaneous Notes Pt. informed via my chart. Please have her increase her dose to 2 tablets 5 days a week and 1 tablet 2 days a week for her DERMATOLOGY TEACHER thyroid 120 mg Recheck labs 1 month [...] again. Thanks! Nena documented in this encounter [facility] 10-24-2024 Telephone encounter Note Please have her increase her dose to 2 tablets 5 days a week and 1 tablet 2 days a week for her DERMATOLOGY TEACHER thyroid 120 mg Recheck labs 1 month Miguelito Champion DO [facility] 10-24-2024 Telephone encounter Note Please see pt message -- I had labs drawn last week for OBGYN but I think my thyroid labs went to them for review. I just wanted to make sure you had a chance to review them and orders were in for the next time you want me to draw again. Thanks! Nena [facility] 10-24-2024 Telephone encounter Note TURNED INTOTE Crystal Giraldo MA [facility] 10-24-2024 Miscellaneous Notes TURNED INTOTE Crystal Giraldo MA documented in this encounter [facility] 10-16-2024 Note Indication Evaluation of growth Maternal [...] 4 oz EFW by: Hadlock (HC-AC-FL) Extended Glass Ribbon Machine Operator Assistant 3.8 mm Extremities / Bony Struc [place] [...] M.D. MATERNAL MEDICINE 10-15-2024 Note HNO ID: [id number] Author: KRISTEN CHANG RN Service: ? Author [...] her Rhophylac pocket card. Kristen Chang RN [facility] 10-15-2024 History of Present illness Narrative Nena [...] Kristen Chang, RN documented in this encounter [facility] 10-15-2024 Progress note Formatting of t his [...] in second trimester ([facility]) - ICD9: V23.9, ICD10: O09.92 (primary diagnosis) - Continue PNV and LDA 2. 28 weeks gestation of ([facility]) - ICD9: V22.2, ICD10: Z3A.28 - Growth today, report pending - 1 hour GCT, CBC, and RPR today - Rh negative: Rhogam injection today - Declines TDAP - LARC form reviewed and signed. Declines. - Depression screen negative - plan form discussed and given to Nena - Reviewed how to pre register through [facility] 3. Twin with single intrauterine , first trimester, fetus 1 ([facility]) - ICD9: 651.33, ICD10: O31.21X1 4. AMA (advanced maternal age) multigravida 35+, second trimester ([facility]) - ICD9: 659.63, ICD10: O09.522 - Age 34 at VENICE 5. Obesity affecting in second trimester, unspecified obesity type ([facility]) - ICD9: 649.13, ICD10: O99.212 -Pre BMI 35 - Plan for 32 week growth q 4 weeks. - Weekly NSTs at 36 weeks. Hypothyroidism affecting in second trimester ([facility]) - ICD9: 648.13, 244.9, ICD10: O99.282, E03.9 - Managed by PCP - Continue 120 mg of DERMATOLOGY TEACHER Thryoid - Recheck today Rh negative state in antepartum period ([facility]) - ICD9: 646.83, ICD10: O26.899, Z67.91 - Rhogam today PTL precautions and kick counts reviewed. RTO in 2 weeks or sooner as needed. Lauren Madera APRN.TUBE SIZER OPERATOR [facility] 10-15-2024 Miscellaneous Notes .EH - S: Nena [...] in second trimester ([facility]) - ICD9: V23.9, ICD10: O09.92 (primary diagnosis) - Continue PNV and LDA 2. 28 weeks gestation of ([facility]) - ICD9: V22.2, ICD10: Z3A.28 - Growth today, report pending - 1 hour GCT, CBC, and RPR today - Rh negative: Rhogam injection today - Declines TDAP - LARC form reviewed and signed. Declines. - Depression screen negative - plan form discussed and given to Nena - Reviewed how to pre register through [facility] 3. Twin with single intrauterine , first trimester, fetus 1 ([facility]) - ICD9: 651.33, ICD10: O31.21X1 4. AMA (advanced maternal age) multigravida 35+, second trimester ([facility]) - ICD9: 659.63, ICD10: O09.522 - Age 34 at VENICE 5. Obesity affecting in second trimester, unspecified obesity type ([facility]) - ICD9: 649.13, ICD10: O99.212 -Pre BMI 35 - Plan for 32 week growth q 4 weeks. - Weekly NSTs at 36 weeks. Hypothyroidism affecting in second trimester ([facility]) - ICD9: 648.13, 244.9, ICD10: O99.282, E03.9 - Managed by PCP - Continue 120 mg of DERMATOLOGY TEACHER Thryoid - Recheck today Rh negative state in antepartum period ([facility]) - ICD9: 646.83, ICD10: O26.899, Z67.91 - Rhogam today PTL precautions and kick counts reviewed. RTO in 2 weeks or sooner as needed. Lauren Madera APRN.TUBE SIZER OPERATOR documented in this encounter [facility] 10-15-2024 Instructions Antelmo Sumner MA - 10/15/2024 2:27 PM EDT SEQUENTIAL SCREENINGS The [facility] offers sequential screenings for women who are [...] It will require an appointment with our zyglo technician. This is not an ultrasound performed [...] the above symptoms, contact our office at [phone] and ask to speak with a nurse. After hours, you can call doctors registry at [phone] OR call [facility] at [phone] and ask to have the doctor container finishing inspector paged. If you consider this an emergency, dial 9-1-1 or go to your nearest emergency department. NEED HELP? Are you dealing with a violent or abusive relationship? Are you a victim of rape or sexual assult? Call [facility] ([place]) 24 hour Crisis Hotline: 569.792.9214 or 774-070-0186. MANUAL Your Guide to a Healthy manual is now on-line. Visit [email or web address] to download your free copy documented in this encounter [facility] 10-14-2024 Telephone encounter Note Patient has been identified by name and date of : Patient phones for refill(s): Requested Prescriptions Pending Prescriptions Disp Refills thyroid (DERMATOLOGY TEACHER THYROID) 120 mg tablet Sig: Take 1 tablet PO 3 days a week and 2 tablets PO 4 days a week Date of last office visit in primary care: 08/23/2024 Date of next office visit in primary care: Visit date not found Please advise. Thank you. Lisa León LPN. [facility] Work Phone: 10-14-2024 Miscellaneous Notes Patient has been identified by name and date of : Patient phones for refill(s): Requested Prescriptions Pending Prescriptions Disp Refills thyroid (DERMATOLOGY TEACHER THYROID) 120 mg tablet Sig: Take 1 tablet PO 3 days a week and 2 tablets PO 4 days a week Date of last office visit in primary care: 08/23/2024 Date of next office visit in primary care: Visit date not found Please advise. Thank you. Lisa León LPN. documented in this encounter [facility] 08-25-2024 Progress note Formatting of t his note might be different from the original. SW- pt doing well. No pain, vb, lof PE: Gen- NAD, well appearing See flowsheet A/p 20 wk gestation - Anatomy US today and final report pending - Thyroid labs today - Cont LDA - RTO 4 wks Joe Boyce DO [facility] 08-25-2024 Miscellaneous Notes SW- pt doing well. No pain, vb, lof PE: Gen- NAD, well appearing See flowsheet A/p 20 wk gestation - Anatomy US today and final report pending - Thyroid labs today - Cont LDA - RTO 4 wks Joe Boyce DO documented in this encounter [facility] 08-23-2024 Note HNO ID: [id number] Author: MIGUELITO CHAMPION, Service: ? Author Type: Physician Type: Progress Notes Filed: 08/23/2024 10:40 Note Text: CC: Nena Leiva is a 34 year old female who presents to the office for physical HPI: Overall she is doing well She is with a baby girl and due in 20 weeks, she is 20 weeks 3 days and managed by OBGYN in [place]. She has had 3 other successful vaginal births-1 davies, 1 set of twins. She is taking her vitamins at this time. Hypothyroidism, she is taking 120 mg of DERMATOLOGY TEACHER thyroid 4 days a week and 240 [...] Lopez, et al. 2017 Guidelines of the [place] [employer] for the Diagnosis and Management [...] daily. cetirizine (ZYRTEC) 10 mg tablet thyroid (DERMATOLOGY TEACHER THYROID) 120 mg tablet Take 1 tablet [...] - Instructed patien (more content not included)... [facility] 08-23-2024 History of Present illness Narrative CC: Nena Leiva is a 34 year old female who presents to the office for physical HPI: Overall she is doing well She is with a baby girl and due in 20 weeks, she is 20 weeks 3 days and managed by OBGYN in [place]. She has had 3 other successful vaginal births-1 davies, 1 set of twins. She is taking her vitamins at this time. Hypothyroidism, she is taking 120 mg of DERMATOLOGY TEACHER thyroid 4 days a week and 240 [...] Lopez et al. 2017 Guidelines of the [place] [employer] for the Diagnosis and Management of Thyroid Disease during and the . Thyroid, 2017:27:3:315-389. 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 cetirizine (ZYRTEC) 10 mg tablet thyroid (DERMATOLOGY TEACHER THYROID) 120 mg tablet Take 1 tablet [...] in the morning or at bedtime. Increase DERMATOLOGY TEACHER thyroid to 240 mg 4 days a [...] agreed with the plan. Miguelito Champion DO [address] [place] [address] documented in this encounter [facility] 08-22-2024 Instructions Tasha Carias MA - 08/22/2024 3:45 PM EDT SEQUENTIAL SCREENINGS The [facility] offers sequential screenings for women who are [...] It will require an appointment with our zyglo technician. This is not an ultrasound performed [...] the above symptoms, contact our office at [phone] and ask to speak with a nurse. After hours, you can call doctors registry at [phone] OR call [facility] at [phone] and ask to have the doctor container finishing inspector paged. If you consider this an emergency, dial or go to your nearest emergency department. NEED HELP? Are you dealing with a violent or abusive relationship? Are you a victim of rape or sexual assult? Call [facility] ([place]) 24 hour Crisis Hotline: 216.837.3462 or 348-649-2744. MANUAL Your Guide to a Healthy manual is now on-line. Visit [email or web address] to download your free copy documented in this encounter [facility] 07-25-2024 Progress note Formatting of t his [...] RTO in 4 weeks Denae Renteria APRN.CNM [facility] Work Phone: 07-25-2024 Miscellaneous Notes TINO-S: Nena [...] Denae Renteria APRN.CNM documented in this encounter [facility] 07-25-2024 Instructions Mi Bauer MA - 07/25/2024 11:26 AM EDT SEQUENTIAL SCREENINGS The [facility] offers sequential screenings for women who are [...] It will require an appointment with our zyglo technician. This is not an ultrasound performed [...] the above symptoms, contact our office at [phone] and ask to speak with a nurse. After hours, you can call doctors registry at [phone] OR call [facility] at [phone] and ask to have the doctor container finishing inspector paged. If you consider this an emergency, dial 9-8 or go to your nearest emergency department. NEED HELP? Are you dealing with a violent or abusive relationship? Are you a victim of rape or sexual assult? Call [facility] ([place]) 24 hour Crisis Hotline: 573.624.1416 or 277-127-3192. MANUAL Your Guide to a Healthy manual is now on-line. Visit [email or web address] to download your free copy documented in this encounter [facility] 07-15-2024 Telephone encounter Note Pt. informed via My chart. [facility] Work Phone: 07-15-2024 Miscellaneous Notes Pt. informed via My chart. Please make sure she knows that her thyroid labs are slightly undercorrected. Recommend increasing DERMATOLOGY TEACHER thyroid 120 mg to 2 tablets 3 days a week and 1 tablet 4 days a week, recheck labs in 1 month Miguelito Champion DO documented in this encounter [facility] 07-15-2024 Telephone encounter Note Please make sure she knows that her thyroid labs are slightly undercorrected. Recommend increasing DERMATOLOGY TEACHER thyroid 120 mg to 2 tablets 3 days a week and 1 tablet 4 days a week, recheck labs in 1 month Miguelito Champion DO [facility] 07-09-2024 Telephone encounter Note You can add her on that is fine. Thanks, Denae Renteria APRN.CNM [facility] Work Phone: 07-09-2024 Miscellaneous Notes You can add her on that is fine. Thanks, Denae Renteria APRN.CNM 14w0d Patient has her 16 week anatomy on 07/25 at 11:00 AM. Would like to have a visit afterwards. Would you OK with seeing her afterwards with your schedule? You are container finishing inspector. If not, I can offer her 8:00 AM. I know she has issues with childbirth educator. Kristen Chang RN documented in this encounter [facility] 07-09-2024 Telephone encounter Note 14w0d Patient has her 16 week anatomy on 07/25 at 11:00 AM. Would like to have a visit afterwards. Would you OK with seeing her afterwards with your schedule? You are container finishing inspector. If not, I can offer her 8:00 AM. I know she has issues with childbirth educator. Kristen Chang, GILMAR [facility] 07-08-2024 Telephone encounter Note Early anatomy ultrasound scheduled. [facility] message sent to patient. Juliana Huston RN [facility] 07-08-2024 Miscellaneous Notes Early anatomy ultrasound scheduled. [facility] message sent to patient. Juliana Huston RN 13w2d Patient needs 16 week anatomy. Placed 6 @ 11 AM on hold. Will need to attach order and officially schedule once order is placed after today's visit with SW. Kristen Chang RN documented in this encounter [facility] 07-04-2024 Telephone encounter Note 13w2d Patient needs 16 week anatomy. Placed 6/ @ 11 AM on hold. Will need to attach order and officially schedule once order is placed after today's visit with SW. Kristen Chang RN [facility] 06-05-2024 Note HNO ID: [id number] Author: WILLIE ECHEVERRIA MD Service: ? Author Type: Physician Type: Progress Notes Filed: 06/05/2024 16:08 Note Text: June 05, 2024 3:23 PM Left message voice mail I was trying to reach her regarding her ultrasound remote read of today. Willie Echeverria MD [facility] 06-05-2024 Note HNO ID: [id number] Author: WILLIE ECHEVERRIA MD Service: ? Author Type: Physician Type: Progress Notes Filed: 06/05/2024 16:08 Note Text: The patient presents for requested ultrasound. Full report available in the Imaging tab in Epic. Willie Echeverria MD [facility] 05-26-2024 Telephone encounter Note Pt sends mychart [...] [facility]. Thank you so much for everything! [facility] 05-26-2024 Miscellaneous Notes Pt sends mychart below: [...] much for everything! documented in this encounter [facility] 05-26-2024 Telephone encounter Note See TE May 26, 2024 [facility] 05-26-2024 Miscellaneous Notes See TE May 26, 2024 documented in this encounter [facility] 05-26-2024 Telephone encounter Note Pt notified of results via beRecruitedt. Glo Smith Ma [facility] 05-26-2024 Miscellaneous Notes Pt notified of results via [employer]Rec[employer]. Glo Smith Ma Please give her my congratulations on her ! Please have her increase dose of her thyroid medication as below and recheck labs in 4 weeks after this change Miguelito Champion, DO The following approved medication requests have been transmitted electronically. Requested Prescriptions Signed Prescriptions Disp Refills thyroid (DERMATOLOGY TEACHER THYROID) 120 mg tablet 140 tablet 3 [...] your help! Nena documented in this encounter [facility] 05-26-2024 Telephone encounter Note Please give her my congratulations on her ! Please have her increase dose of her thyroid medication as below and recheck labs in 4 weeks after this change Miguelito Champion DO The following approved medication requests have been transmitted electronically. Requested Prescriptions Signed Prescriptions Disp Refills thyroid (DERMATOLOGY TEACHER THYROID) 120 mg tablet 140 tablet 3 Sig: Take 1 tablet PO 5 days a week and 2 tablets PO 2 days a week Authorizing Provider: MIGUELITO CHAMPION DO [facility] 05-24-2024 Telephone encounter Note Hi Dr Champion, [...] high. Thanks for all your help! Ali [facility] 05-23-2024 Note HNO ID: [id number] Author: ANTELMO SUMNER MA Service: ? Author Type: Supervisor Fur Dressing Type: Progress Notes Filed: 05/23/2024 11:52 Note Text: OB point of care ultrasound was performed. See imaging tab for details. Antelmo Sumner MA [facility] 05-23-2024 History of Present illness Narrative OB point of care ultrasound was performed. See imaging tab for details. Antelmo Sumner MA Patient declined clinical nursing manager. 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 DERMATOLOGY TEACHER THYROID 60 mg tablet TAKE 2 TABLETS [...] discussed with the Patient or Patient's Authorized Features Reporter. As applicable, any other physician, advance practice provider, medical student, or other health professional student that will be observing or involved in the sensitive examination for educational or training purposes was discussed with the Patient or Authorized Features Reporter. The Patient or Authorized Features Reporter has agreed to proceed with the sensitive [...] Your guide to a health and the Garage Door Installer. Reviewed midwifery and beveling and edging machine operator services that are available. 2) Screening: Hemoglobin [...] Shiloh Westfall APRN.CNP documented in this encounter [facility] 05-19-2024 Note HNO ID: [id number] Author: SHILOH WESTFALL APRN.TUBE SIZER OPERATOR Service: ? Author Type: Nurse Practitioner Type: Progress Notes Filed: 05/23/2024 11:52 Note Text: Patient declined clinical nursing manager. 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 Gender: Male PAST MEDICAL HISTORY Diagnosis Date Acquired hypothyroidism 01/21/2015 Hypothyroidism 08/05/2012 mastitis Partial molar ([facility]) 03/2018 Rh negative state in antepartum period ([facility]) 11/07/2013 Vitamin D deficiency PAST SURGICAL HISTORY Procedure Laterality Date DILATION AND CURETTAGE DXAND/THER NONOBSTETRIC 03/28/2018 Dilation AND curettage PAST SURGICAL HISTORY OF 05/22 extraction of wisdom teeth Current Outpatient Medications Medication Sig Dispense Refill PNV no.95/ferrous fum/folic ac ( ORAL) Take 2 capsules by mouth once daily. DERMATOLOGY TEACHER THYROID 60 mg tablet TAKE 2 TABLETS [...] for: Heartburn, Constipa (more content not included)... [facility] 05-19-2024 Instructions Almita Sawyer LPN - 05/19/2024 3:37 PM EDT Please select the following link to access the [facility] Your Guide to a Healthy . [email or web address] Please select the following link to access the [facility] Your Guide to a Healthy . [email or web address] documented in this encounter [facility] 05-05-2024 Telephone encounter Note Pt. informed via My Chart. [facility] Work Phone: 05-05-2024 Miscellaneous Notes Pt. informed via My Chart. Order placed for thyroid labs Please let her know congratulations!!! Miguelito Champion DO Patient just found out she is . About 5 weeks along. When should she check TSH? She did stop the tirzepatide as soon as she found out she was . documented in this encounter [facility] 05-05-2024 Telephone encounter Note Order placed for thyroid labs Please let her know congratulations!!! Miguelito Champion DO [facility] 05-05-2024 Telephone encounter Note Patient notified and declines to schedule an appointment at this time. Patient states she will just wait to be seen on 05/23. Will call if she changes her mind and would like appointment to have HCG levels done. Juliana Huston RN [facility] 05-05-2024 Miscellaneous Notes Patient notified and declines [...] Kristen Chang RN documented in this encounter [facility] 05-05-2024 Telephone encounter Note Please have patient make an appointment to review. Can be a virtual this week so we can make sure appropriate follow up as well. Thank you, Denae Renteria APRN.CNM [facility] Work Phone: 05-05-2024 Telephone encounter Note LMP 05/31 Approximately 4w5d Patient has a hx of missed AB and partial molar . Denies cramping or bleeding. Asking for HCG levels for piece of mind. NOB is 05/23/24. Kristen Chang, RN [facility] 05-05-2024 Telephone encounter Note Patient just found out she is . About 5 weeks along. When should she check TSH? She did stop the tirzepatide as soon as she found out she was . [facility] 04-23-2024 Telephone encounter Note Patient has been [...] Please advise. Thank you. Lisa León LPN. [facility] Work Phone: 04-23-2024 Miscellaneous Notes Patient has [...] Lisa León LPN. documented in this encounter [facility] 04-14-2024 Telephone encounter Note See update from pt regarding thyroid dosage. Is requesting refill to be sent to Mail order, this has been pended. Update pt via V[employer] once this has been sent. Romina Wells MA [facility] 04-14-2024 Miscellaneous Notes See update from pt regarding thyroid dosage. Is requesting refill to be sent to Mail order, this has been pended. Update pt via XMPiehart once this has been sent. Romina Wells MA Sent pt [employer] message notifying her we've attempted to reach her by phone with messages left requesting a call back. Sent [employer] message with results and recommendations below from [...] medication just slightly. Thank you, Karentim Azar APRN.TUBE SIZER OPERATOR documented in this encounter [facility] 04-14-2024 Progress note Formatting of t his note might be different from the original. Sent pt mychart message notifying her we've attempted to reach her by phone with messages left requesting a call back. Sent mychart message with results and recommendations below from Provider. Asked pt to update office with how she would like to proceed. Wait pt response. Romina Wells MA [facility] 04-08-2024 Telephone encounter Note Left a message for pt to call the office and ask to speak to a nurse. Renetta Sawyer LPN [facility] 04-07-2024 Telephone encounter Note Lft message to return call. [facility] 04-07-2024 Telephone encounter Note Please call patient and let her know that thyroid labs are improved. TSH is now WNL. However, there is still room to improve this, especially with T3 low now. See how patient is feeling and if symptomatic still. IF so, we can increase dosage of medication just slightly. Thank you, Karen Azar APRN.TUBE SIZER OPERATOR [facility] 03-19-2024 Telephone encounter Note Pt. informed via My Chart [facility] Work Phone: 03-19-2024 Miscellaneous Notes Pt. informed via My Chart I am not aware of any of this information with the [facility] pharmacy Recommend that she calls and [...] one more refill at the [facility] I will be able to fruit picker for the month of March. Thank you for all you do! Ali documented in this encounter [facility] 03-18-2024 Telephone encounter Note I am not aware of any of this information with the [facility] pharmacy Recommend that she calls and asks the pharmacy specifically any questions Miguelito Champion DO [facility] 03-11-2024 Telephone encounter Note Please see message [...] one more refill at the [facility] I will be able to fruit picker for the month of March. Thank you for all you do! Ali [facility] 03-11-2024 Telephone encounter Note Transitioned to TE per provider preference. SHON Chavez [facility] 03-11-2024 Miscellaneous Notes Transitioned to TE per provider preference. SHON Chavez documented in this encounter [facility] 02-18-2024 Telephone encounter Note Pt notified of results via VendorShop. Glo Smith Ma [facility] 02-18-2024 Miscellaneous Notes Pt notified of results via XMPiehart. Glo Smith Ma Left message to return call. Go ahead and increase to 2.5 tablets 1-2 days per week. And let me know in 4-6 weeks how you are feeling. We can repeat labs then. Thank you, Karen Azar APRN.TUBE SIZER OPERATOR Please see pt message - I would [...] she is feeling. Thank you, Karen Azar APRN.TUBE SIZER OPERATOR documented in this encounter [facility] 02-15-2024 Telephone encounter Note Left message to return call. [facility] 02-15-2024 Telephone encounter Note Go ahead and increase to 2.5 tablets 1-2 days per week. And let me know in 4-6 weeks how you are feeling. We can repeat labs then. Thank you, Karen Azar APRN.TUBE SIZER OPERATOR [facility] 02-14-2024 Telephone encounter Note Please see pt message - I would say overall I feel better than a few months ago but I have noticed hair loss, feeling some fatigue and a lower sex drive than what I would consider normal for me. I wouldn t be opposed to slightly changing things around to see if that improves? Thanks! Ali [facility] 02-14-2024 Telephone encounter Note Pt informed via message Crystal Giraldo MA [facility] 02-14-2024 Telephone encounter Note Please call patient and let her know that thyroid labs are greatly improved from 2 months ago. T3 and T4 are normal, however TSH is still slightly elevated. No change in regimen unless pt is symptomatic. Please see how she is feeling. Thank you, Karen Azar APRN.TUBE SIZER OPERATOR [facility] 01-16-2024 Telephone encounter Note Turned into TE Crystal Giraldo MA [facility] 01-16-2024 Miscellaneous Notes Turned into TE Crystal Giraldo MA documented in this encounter [facility] 12-20-2023 Telephone encounter Note Left a detailed message that prescription was sent to the pharmacy and the dose was increased. Renetta Sawyer LPN [facility] 12-20-2023 Miscellaneous Notes Left a detailed message [...] tir[facility]epatide [facility] to [facility] [place]. I have probably enough for one more week on the 7.5 mg dose. Scale still not changing (ranging 214-216 since 10/10/23) but I can wait to increase the dose if that s what you prefer since I ve only been back on the increased dose of DERMATOLOGY TEACHER thyroid for about 3 weeks now. Just let me know! Thanks! Ali documented in this encounter [facility] 12-19-2023 Telephone encounter Note Okay to increase dose as below rx sent to pharmacy Miguelito Champion DO The following approved medication requests have been transmitted electronically. Requested Prescriptions Signed Prescriptions Disp Refills tirzepatide (MOUNJARO) 10 mg/0.5 mL pen injector 3 mL 3 Sig: Inject 10 mg subcutaneously one time a week. Authorizing Provider: MIGUELITO CHAMPION DO [facility] 12-19-2023 Telephone encounter Note Patient sent message check on status Any updates on the new script being sent over? I m using the last of what I have today and the pharmacy has no refills on file. I typically pick it up on Tuesdays and then take it on Wednesdays. I haven t missed a weekly dose since starting in March. Thanks! [facility] 12-12-2023 Telephone encounter Note re there lab orders in for when you d like me to recheck thyroid levels? Also, I will need a new script for the tirzepatide sent to [facility] [place]. I have probably enough for one more week on the 7.5 mg dose. Scale still not changing (ranging 214-216 since 10/10/23) but I can wait to increase the dose if that s what you prefer since I ve only been back on the increased dose of DERMATOLOGY TEACHER thyroid for about 3 weeks now. Just let me know! Thanks! Ali [facility] Work Phone: 12-12-2023 Telephone encounter Note See telephone note. [facility] Work Phone: 12-12-2023 Miscellaneous Notes See telephone note. documented in this encounter [facility] 11-23-2023 Telephone encounter Note MC message read 12:11pm on 11/21. Crystal Giraldo MA [facility] 11-23-2023 Miscellaneous Notes MC message read 12:11pm on 11/21. Crystal Giraldo MA Phoned patient left message to return call and ask to speak to a nurse for results. Also sent message on her my chart with results below. Please have her increase her DERMATOLOGY TEACHER thyroid to take 2 tablets (120 mg) [...] Thank you! Nena documented in this encounter [facility] 11-22-2023 Telephone encounter Note Phoned patient left message to return call and ask to speak to a nurse for results. Also sent message on her my chart with results below. [facility] 11-21-2023 Telephone encounter Note Please have her increase her DERMATOLOGY TEACHER thyroid to take 2 tablets (120 mg) every day in the AM. Lets wait for 1-2 months to see if this helps her weight loss before increasing the GLP1 agonist for weight loss Miguelito Champion DO [facility] 11-21-2023 Telephone encounter Note Please see patient [...] just let me know! Thank you! Ali [facility] 10-04-2023 Telephone encounter Note Sent to provider via JAVAN Giraldo MA [facility] 10-04-2023 Miscellaneous Notes Sent to provider via JAVAN Giraldo MA documented in this encounter [facility] 09-24-2023 Telephone encounter Note Okay to take rx as below Miguelito Champion DO The following approved medication requests have been transmitted electronically. Requested Prescriptions Signed Prescriptions Disp Refills mebendazole (VERMOX) 100 mg chewable tablet 2 tablet 0 Sig: Take 1 tablet PO once. Repeat dose in 2 weeks Authorizing Provider: MIGUELITO CHAMPION DO [facility] 09-24-2023 Miscellaneous Notes Okay to take rx [...] Lavonne Meehan RN documented in this encounter [facility] 09-22-2023 Telephone encounter Note Patient calling to request medication for self and family members for pin worm. 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 Advised PCP out of office. Advised EC evaluation for sooner treatment. Lavonne Meehan RN [facility] 08-17-2023 Telephone encounter Note Letter sent to pts home. Closed. [facility] 08-17-2023 Miscellaneous Notes Letter sent to pts home. Closed. 3rd attempt to reach patient. Left message to return call. Crystal Giraldo MA Left message to return call. Left message to return call Crystal Giraldo MA Please inform patient that her labs were off with her free t3 high, normal free t4, high TSH levels. Would like her to cut back to taking DERMATOLOGY TEACHER thyroid 120 mg 5 days a week and only 60 mg on 2 days a week Rechecck thyroid labs in 6-8 weeks Also her white blood cell count was slightly high. Would like this rechecked when thyroid labs are rechecked Miguelito Champion DO documented in this encounter [facility] 08-14-2023 Telephone encounter Note 3rd attempt to reach patient. Left message to return call. Crystal Giraldo MA [facility] 08-10-2023 Telephone encounter Note Left message to return call. [facility] 08-08-2023 Telephone encounter Note Left message to return call Crystal Giraldo MA T [facility] 08-08-2023 Telephone encounter Note Please inform patient that her labs were off with her free t3 high, normal free t4, high TSH levels. Would like her to cut back to taking DERMATOLOGY TEACHER thyroid 120 mg 5 days a week and only 60 mg on 2 days a week Rechecck thyroid labs in 6-8 weeks Also her white blood cell count was slightly high. Would like this rechecked when thyroid labs are rechecked Miguelito Champion DO T [facility] 07-21-2023 History of Present illness Narrative CC: [...] to have labs rechecked. She is taking DERMATOLOGY TEACHER thyroid hormone Vitamin D deficiency, taking supplement [...] once daily. cetirizine (ZYRTEC) 10 mg tablet DERMATOLOGY TEACHER THYROID 60 mg tablet TAKE 2 TABLETS [...] in the morning or at bedtime. Continue DERMATOLOGY TEACHER thyroid 3. Class 2 obesity with body [...] with the plan. Miguelito Champion DO [address] [place] [address] documented in this encounter [facility] 04-06-2023 Miscellaneous Notes Pt was notified by my chart. She'll need to schedule an appt to discuss this. Humberto Goldman APRN.MIKE Below message from patient Shanel: Hi Dr Chmapion, I am a little conflicted asking this [...] doing amazing! Ali documented in this encounter [facility] 04-02-2023 Miscellaneous Notes The following approved medication requests have been transmitted electronically. Requested Prescriptions Signed Prescriptions Disp Refills DERMATOLOGY TEACHER THYROID 60 mg tablet 180 tablet 3 Sig: TAKE 2 TABLETS BY MOUTH EVERY DAY Authorizing Provider: MARK ZAZUETA PA-C Patient has been identified by name and date of : Yes, Provider Miguelito Champion DO Date April 02, 2023 Time 10:23 AM Patient phones for refill(s): Requested Prescriptions Pending Prescriptions Disp Refills DERMATOLOGY TEACHER THYROID 60 mg tablet 60 tablet 3 [...] Glo Smith Ma. documented in this encounter [facility] 03-22-2023 Miscellaneous Notes Sent to provider in phone encounter. documented in this encounter [facility] 12-25-2022 Miscellaneous Notes Sent pt a my [...] great summer! Ali documented in this encounter [facility] 11-01-2022 Miscellaneous Notes Pt. informed via My [...] have resolved now. documented in this encounter [facility] 10-31-2022 Miscellaneous Notes Made into TE documented in this encounter [facility] 10-26-2022 Miscellaneous Notes It appears their was a verbal order given to pharmacy on 10/23/22. TE started and routed to PCP to review and advise. Will keep encounter open to update pt. Romina Wells Ma documented in this encounter [facility] 10-23-2022 Miscellaneous Notes Pharmacy called and now needs to be ordered Thyroid 60 mg. that Verbal order was given. I don't know what rx is available for her to change to. We need to call pharmacy and clarify? [facility] thyroid vs. Nature Thyroid etc Miguelito Champion DO Pt sent [employer] message today regarding issues with Thyroid medication. On 10/13/22, same medication was sent in it looks like but different dosage. See message below from pt and advise in XMPiehart message or TE. Message: Hi! I received a text from [employer] saying my thyroid medication was no longer being manufactured as DERMATOLOGY TEACHER thyroid and it was needing to be [...] Rx? Thank you! documented in this encounter [facility] 10-13-2022 Miscellaneous Notes Patient phones requesting refills as follows: Pharmacy comment: Alternative Requested:THIS APPEARS TO HAVE DISCONTINUED. SPECIFICALLY THIS BRAND. Requested Prescriptions Pending Prescriptions Disp Refills DERMATOLOGY TEACHER THYROID 60 mg tablet [Pharmacy Med Name: DERMATOLOGY TEACHER THYROID 60 MG TABLET] 60 tablet 3 Sig: TAKE 2 TABLETS BY MOUTH EVERY DAY Please review and advise. Yanni Evans LPN documented in this encounter [facility] 10-12-2022 Miscellaneous Notes Pt informed via [employer] message Crystal Giraldo Noted, please make sure she know that this was only 2 weeks before she had her labs checked so not long enough to know if helping yet. Needs to be 6-8 weeks to know if dose change of thyroid medication is helping her levels so no further med change at this time Miguelito Champion DO Please see pt [employer] message- Hi! When I was in to see Marycarmen a few weeks ago she adjusted my dose to 2 tablets daily. I ve been on a that since she made the change 3rd attempt to contact pt with no answer. Left message to return call. Will also send pt beRecruitedt message. Crystal Giraldo Left message to return call. Left message for patient to call office back Colleen Mendieta Ma Please inform patient that her TSH is high and free t4 is low normal. Her dose of thyroid hormone needs to be increased. What is she currently taking? Miguelito Champion DO documented in this encounter [facility] 09-29-2022 Miscellaneous Notes Results and provider message sent to patient via [employer] message per patient request. Patient already started [...] to number on form. I recommend increasing DERMATOLOGY TEACHER thyroid to 2 tablets every day of the week. This will keep regimen easier as well. Recheck labs in 6 weeks. The rest of lab work looks fantastic! Please also let her know that paperwork for employer physical is filled out. Please fax. This is in my outbox. Thank you, Karen Azar APRN.TUBE SIZER OPERATOR See My Chart Message below: I just saw the thyroid labs come through [employer]. I m just messaging to let [...] Gay Rod RN documented in this encounter [facility] 09-23-2022 Miscellaneous Notes Turned Into Telephone Encounter. documented in this encounter [facility] 09-22-2022 History of Present illness Narrative Chief [...] CONTROL) 300 mg cap Take by mouth. DERMATOLOGY TEACHER THYROID 60 mg tablet Take 1 tablet [...] diet of 1000 mg/day for under 50, 0727-3605 mg/day for 50+ - Depression screening tool [...] Patient agreeable to treatment plan. Karen Calles APRN.TUBE SIZER OPERATOR [address] [place] [address] documented in this encounter [facility] 08-28-2022 Miscellaneous Notes Copied to phone note. documented in this encounter [facility] 08-08-2022 Miscellaneous Notes Left another message for patient with negative results and recommendations.Dolores Valentin LPN Left message for pt to call back. Amanda Morgan MA ----- Message from Gita Argueta APRN.TUBE SIZER OPERATOR sent at 08/06/2022 8:10 AM EDT ----- [...] electronically. Requested Prescriptions Signed Prescriptions Disp Refills DERMATOLOGY TEACHER THYROID 60 mg tablet 144 tablet 3 [...] can you send an updated prescription to [facility] so I don t run out? Thank you for all you do! documented in this encounter [facility] 06-26-2022 Miscellaneous Notes Turned into JAVAN Giraldo documented in this encounter [facility] 06-13-2022 History of Present illness Narrative This note was created using [employer] Mediar[employer]. Subjective Nena Leiva is a 32 year [...] Current Outpatient Medications Medication Sig Dispense Refill DERMATOLOGY TEACHER THYROID 60 mg tablet Take 1 tablet [...] Reported on 06/13/2022) Biotin 10,000 mcg cap Hobsivll-No-You-Fe-FA tab Take 1 tablet by mouth. (Patient [...] Paula Lang PA-C documented in this encounter [facility] 04-07-2022 Miscellaneous Notes Pt informed Crystal Giraldo Yes Dr. Champion will take them as patients. They'll likely need to see Karen or myself. Humberto Goldman APRN.TUBE SIZER OPERATOR documented in this encounter [facility] 12-09-2021 Miscellaneous Notes Alexandro--07/06/21 Nov--nothing booked Last refill--07/08/21 120 with 2 refills Last labs--07/06/21 documented in this encounter [facility] 07-06-2021 History of Present illness Narrative CC: Nena Leiva is a 31 year old female who presents to the office for physical HPI: Overall she is feeling well. She has been working on her diet and exercise and has lost 50 lbs in the last 2 years after her twins have been born Hypothyroidism, taking DERMATOLOGY TEACHER thyroid hormone 2 days a week 2 [...] Son other (Eczema) Son Current Outpatient prescriptions: DERMATOLOGY TEACHER THYROID 60 mg Take 1 tablet 5 days a week and 2 tablets 2 days a week naltrexone 4.5 mg capsule Take 4.5 mg by mouth daily at bedtime. Biotin 10,000 mcg cap Mpawbksl-Jk-Gjq-Fe-FA ( VITAMIN) tab Take 1 tablet by [...] diet of 1000 mg/day for under 50, 3563-6278 mg/day for 50+ 2. Acquired hypothyroidism - [...] with the plan. Miguelito Champion DO [address] [place] [address] THE LAST 2 WEEKS, HAVE YOU BEEN [...] DIFFICULT AT ALL documented in this encounter [facility] 06-15-2021 Miscellaneous Notes Upcoming office visit and blood work this month. Will fill enough to get to this point. The following approved medication requests have been transmitted electronically. Signed Prescriptions Disp Refills DERMATOLOGY TEACHER THYROID 60 mg 108 tablet 1 Sig: Take 1 tablet 5 days a week and 2 tablets 2 days a week VIRIDIANA: Yes Authorizing Provider: KAREN CALLES APRN.TUBE SIZER OPERATOR Patient has been identified by name and date of : Yes Patient only has a few left of medication, see [employer]endor[employer] message. Patient phones for refill(s): Pending Prescriptions Disp Refills DERMATOLOGY TEACHER THYROID 60 MG TABLET 108 tablet 1 Sig: Take 1 tablet 5 days a week and 2 tablets 2 days a week VIRIDIANA: Yes Date of last office visit in primary care: 05/30/19 Please advise. Thank you. Dolores Layton LPN documented in this encounter [facility] 05-23-2021 Miscellaneous Notes The following approved medication requests have been transmitted electronically. Signed Prescriptions Disp Refills DERMATOLOGY TEACHER THYROID 60 mg 108 tablet 1 Sig: Take 1 tablet 5 days a week and 2 tablets 2 days a week VIRIDIANA: Yes Authorizing Provider: KAREN CALLES Ordering User: HUMBERTO GOLDMAN APRN.CNP alexandro-- 05/30/19 Last refill 05/18/21 34 with 0 refills documented in this encounter [facility] 05-18-2021 Miscellaneous Notes The following approved medication requests have been transmitted electronically. Signed Prescriptions Disp Refills DERMATOLOGY TEACHER THYROID 60 mg 34 tablet 0 Sig: Take 1 tablet 5 days a week and 2 tablets 2 days a week VIRIDIANA: Yes Authorizing Provider: KAREN CALLES APRN.CNP .Spoke with patient. Given message from provider's office. Patient verbalizes understanding. She is taking DERMATOLOGY TEACHER Thyroid as prescribed in note below. Please send new script to [facility]. Lavonne Meehan RN left with patient to contact office for results Crystal Mahajan Ma Please let patient know we got her blood work results. Her TSH is very elevated. Please clarify that she is taking DERMATOLOGY TEACHER thyroid 60 mg 6x/week and 2 tablets [...] Karen Calles APRN.CNP documented in this encounter [facility] 05-04-2021 Miscellaneous Notes Reminded of lab work by my chart. Remind patient that she needs blood work from 05/02 prior to any additional refills. The following approved medication requests have been transmitted electronically. Pending Prescriptions Disp Refills DERMATOLOGY TEACHER THYROID 60 MG TABLET 28 tablet 0 Sig: Take 1 tablet 1 days a week and 2 tablets 6 days a week VIRIDIANA: Yes Karen Calles APRN.CNP Patient has been identified by name and date of : Yes Patient phones for refill(s): Pending Prescriptions Disp Refills DERMATOLOGY TEACHER THYROID 60 MG TABLET 28 tablet 0 Sig: Take 1 tablet 1 days a week and 2 tablets 6 days a week VIRIDIANA: Yes Date of last office visit in primary care: appointment scheduled 07/06/2021 Please advise. Thank you. Dolores Layton LPN documented in this encounter [facility] 05-02-2021 Miscellaneous Notes Pt. informed via My Chart. Lisa León LPN Patient needs routine office visit d/t last visit almost 2 years ago. Blood work placed prior to scheduled appointment. Please assist in making appointment. The following approved medication requests have been transmitted electronically. 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 Yanni Evans LPN documented in this encounter [facility] 04-06-2020 History of Present illness Narrative Radiology [...] 2020 9:49 AM documented in this encounter [facility] 12-19-2018 History of Past i llness Narrative [...] and optimal weight gain. Recommended patient see international trade analyst to discuss further. Patient will consider. TKRN [...] of this encounter (statuses as of 05/02/2021) [facility] History of Past illness Narrative* Problem Noted [...] and optimal weight gain. Recommended patient see international trade analyst to discuss further. Patient will consider. TKRN [...] of this encounter (statuses as of 05/04/2021) [facility] History of Past illness Narrative* Problem Noted [...] and optimal weight gain. Recommended patient see international trade analyst to discuss further. Patient will consider. TKRN [...] of this encounter (statuses as of 05/18/2021) [facility] History of Past illness Narrative* Problem Noted [...] and optimal weight gain. Recommended patient see international trade analyst to discuss further. Patient will consider. TKRN [...] of this encounter (statuses as of 05/23/2021) [facility] History of Past illness Narrative* Problem Noted [...] and optimal weight gain. Recommended patient see international trade analyst to discuss further. Patient will consider. TKRN [...] of this encounter (statuses as of 06/15/2021) [facility] History of Past illness Narrative* Problem Noted [...] and optimal weight gain. Recommended patient see international trade analyst to discuss further. Patient will consider. TKRN [...] of this encounter (statuses as of 07/06/2021) [facility] History of Past illness Narrative* Problem Noted [...] and optimal weight gain. Recommended patient see international trade analyst to discuss further. Patient will consider. TKRN [...] of this encounter (statuses as of 08/19/2021) [facility] History of Past illness Narrative* Problem Noted [...] and optimal weight gain. Recommended patient see international trade analyst to discuss further. Patient will consider. TKRN [...] of this encounter (statuses as of 12/09/2021) [facility] History of Past illness Narrative* Problem Noted [...] and optimal weight gain. Recommended patient see international trade analyst to discuss further. Patient will consider. TKRN [...] of this encounter (statuses as of 04/07/2022) [facility] History of Past illness Narrative* Problem Noted [...] and optimal weight gain. Recommended patient see international trade analyst to discuss further. Patient will consider. TKRN [...] of this encounter (statuses as of 06/14/2022) [facility] History of Past illness Narrative* Problem Noted [...] and optimal weight gain. Recommended patient see international trade analyst to discuss further. Patient will consider. TKRN [...] of this encounter (statuses as of 06/26/2022) [facility] History of Past illness Narrative* Problem Noted [...] and optimal weight gain. Recommended patient see international trade analyst to discuss further. Patient will consider. TKRN [...] of this encounter (statuses as of 08/08/2022) [facility] History of Past illness Narrative* Problem Noted [...] and optimal weight gain. Recommended patient see international trade analyst to discuss further. Patient will consider. TKRN [...] of this encounter (statuses as of 08/28/2022) [facility] History of Past illness Narrative* Problem Noted [...] and optimal weight gain. Recommended patient see international trade analyst to discuss further. Patient will consider. TKRN [...] of this encounter (statuses as of 09/22/2022) [facility] History of Past illness Narrative* Problem Noted [...] and optimal weight gain. Recommended patient see international trade analyst to discuss further. Patient will consider. TKRN [...] of this encounter (statuses as of 09/23/2022) [facility] History of Past illness Narrative* Problem Noted [...] and optimal weight gain. Recommended patient see international trade analyst to discuss further. Patient will consider. TKRN [...] of this encounter (statuses as of 09/30/2022) [facility] History of Past illness Narrative* Problem Noted [...] and optimal weight gain. Recommended patient see international trade analyst to discuss further. Patient will consider. TKRN [...] of this encounter (statuses as of 10/02/2022) [facility] History of Past illness Narrative* Problem Noted [...] and optimal weight gain. Recommended patient see international trade analyst to discuss further. Patient will consider. TKRN [...] of this encounter (statuses as of 10/13/2022) [facility] History of Past illness Narrative* Problem Noted [...] and optimal weight gain. Recommended patient see international trade analyst to discuss further. Patient will consider. TKRN [...] of this encounter (statuses as of 10/13/2022) [facility] History of Past illness Narrative* Problem Noted [...] and optimal weight gain. Recommended patient see international trade analyst to discuss further. Patient will consider. TKRN [...] of this encounter (statuses as of 10/23/2022) [facility] History of Past illness Narrative* Problem Noted [...] and optimal weight gain. Recommended patient see international trade analyst to discuss further. Patient will consider. TKRN [...] of this encounter (statuses as of 10/26/2022) [facility] History of Past illness Narrative* Problem Noted [...] and optimal weight gain. Recommended patient see international trade analyst to discuss further. Patient will consider. TKRN [...] of this encounter (statuses as of 10/31/2022) [facility] History of Past illness Narrative* Problem Noted [...] and optimal weight gain. Recommended patient see international trade analyst to discuss further. Patient will consider. TKRN [...] of this encounter (statuses as of 11/02/2022) [facility] History of Past illness Narrative* Problem Noted [...] and optimal weight gain. Recommended patient see international trade analyst to discuss further. Patient will consider. TKRN [...] of this encounter (statuses as of 12/26/2022) [facility] History of Past illness Narrative* Problem Noted [...] and optimal weight gain. Recommended patient see international trade analyst to discuss further. Patient will consider. TKRN [...] of this encounter (statuses as of 03/22/2023) [facility] History of Past illness Narrative* Problem Noted [...] and optimal weight gain. Recommended patient see international trade analyst to discuss further. Patient will consider. TKRN [...] of this encounter (statuses as of 04/02/2023) [facility] History of Past illness Narrative* Problem Noted [...] and optimal weight gain. Recommended patient see international trade analyst to discuss further. Patient will consider. TKRN [...] of this encounter (statuses as of 04/06/2023) [facility] Diagnosis Wellness examination- Primary Acquired hypothyroidism Unspecified hypothyroidism [facility] Acquired hypothyroidism Unspecified hypothyroidism documented [...] Wellness examination- Primary documented in this encounter [facility] note* Diagnosis Acquired hypothyroidism Unspecified hypothyroidism documented in this encounter [facility] note* Diagnosis Wellness examination- Primary Acquired hypothyroidism Unspecified hypothyroidism Class 2 obesity with body mass index (BMI) of 37.0 to 37.9 in adult, unspecified obesity type, unspecified whether serious comorbidity present documented in this encounter [facility] note* Diagnosis Acquired hypothyroidism- Primary Unspecified hypothyroidism Leukocytosis, unspecified type documented in this encounter [facility] note* Diagnosis Class 2 obesity with body mass index (BMI) of 37.0 to 37.9 in adult, unspecified obesity type, unspecified whether serious comorbidity present- Primary documented in this encounter [facility] note* Diagnosis Acquired hypothyroidism- Primary Unspecified hypothyroidism documented in this encounter [facility] note* Diagnosis Acquired hypothyroidism Unspecified hypothyroidism documented in this encounter [facility] note* Diagnosis Class 2 obesity with body mass index (BMI) of 37.0 to 37.9 in adult, unspecified obesity type, unspecified whether serious comorbidity present documented in this encounter [facility] note* Diagnosis Hypothyroidism, acquired- Primary Unspecified hypothyroidism documented in this encounter [facility] note* Diagnosis High-risk , multigravida of advanced maternal age, antepartum (HCC)- Primary Twin gestation in first trimester, unspecified multiple gestation type (HCC) 7 weeks gestation of ([facility]) state, incidental with uncertain dates in first trimester ([facility]) Screen for STD (sexually transmitted disease) Screening examination for venereal disease Screening for cervical cancer Screening for malignant neoplasm of the cervix Special screening examination for human papillomavirus (HPV) documented in this encounter [facility] note* Diagnosis Hypothyroidism, acquired- Primary Unspecified hypothyroidism documented in this encounter [facility] note* Diagnosis Twin with single intrauterine , first trimester, fetus 1 (HCC)- Primary 13 weeks gestation of ([facility]) state, incidental Obesity affecting in second trimester, unspecified obesity type (HCC) documented in this encounter [facility] note* Diagnosis screening for malformation using ultrasonics ([facility])- Primary Encounter for routine screening for malformation using ultrasonics Obesity affecting in second trimester, unspecified obesity type (HCC) Twin with single intrauterine , first trimester, fetus 1 (HCC) 16 weeks gestation of ([facility]) state, incidental [facility]* Diagnosis Supervision of high risk in second trimester ([facility])- Primary Unspecified high-risk 16 weeks gestation of ([facility]) state, incidental Twin with single intrauterine , first trimester, fetus 1 (HCC) Obesity affecting in second trimester, unspecified obesity type ([facility]) AMA (advanced maternal age) multigravida 35+, second trimester ([facility]) Hypothyroidism affecting in second trimester ([facility]) [facility]* Diagnosis Wellness examination- Primary Screening for depression Encounter for screening examination for other mental health and behavioral disorders Acquired hypothyroidism Unspecified hypothyroidism 20 weeks gestation of ([facility]) state, incidental [facility] Diagnosis Family history of congenital heart defect- Primary Family history of congenital anomalies with uncertain dates in first trimester ([facility]) High-risk , multigravida of advanced maternal age, antepartum ([facility]) 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 ([facility]) Class 2 obesity without serious comorbidity with body mass index (BMI) of 37.0 to 37.9 in adult, unspecified obesity type [facility] Diagnosis Twin with single intrauterine , first trimester, fetus 1 ([facility])- Primary 20 weeks gestation of ([facility]) state, incidental Supervision of high risk in second trimester ([facility]) Unspecified high-risk AMA (advanced maternal age) multigravida 35+, second trimester ([facility]) Obesity affecting in second trimester, unspecified obesity type ([facility]) High-risk , multigravida of advanced maternal age, antepartum ([facility]) [facility]* Diagnosis Hypothyroidism, acquired- Primary Unspecified hypothyroidism [facility]* Diagnosis Supervision of high risk in second trimester ([facility])- Primary Unspecified high-risk 28 weeks gestation of ([facility]) state, incidental Twin with single intrauterine , first trimester, fetus 1 ([facility]) AMA (advanced maternal age) multigravida 35+, second trimester (HCC) Obesity affecting in second trimester, unspecified obesity type ([facility]) Hypothyroidism affecting in second trimester ([facility]) Rh negative state in antepartum period (HCC) Rhesus isoimmunization affecting management of mother, antepartum condition High-risk , multigravida of advanced maternal age, antepartum (HCC) documented in this encounter [facility] note* Diagnosis High-risk , multigravida of advanced maternal age, antepartum (HCC) 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 (HCC) Class 2 obesity without serious comorbidity with body mass index (BMI) of 37.0 to 37.9 in adult, unspecified obesity type documented in this encounter [facility] note* Diagnosis Acquired hypothyroidism- Primary Unspecified hypothyroidism documented in this encounter [facility] note* Diagnosis 30 weeks gestation of (HCC)- Primary state, incidental Supervision of high risk in second trimester (HCC) Unspecified high-risk Twin with single intrauterine , first trimester, fetus 1 (HCC) AMA (advanced maternal age) multigravida 35+, second trimester (HCC) Obesity affecting in second trimester, unspecified obesity type (HCC) documented in this encounter [facility] Reason for Referral Specialty Diagnoses / Procedures Referred By Judy cordero Referred To Contact Diagnoses Class 2 obesity with body mass index (BMI) of 37.0 to 37.9 in adult, unspecified obesity type, unspecified whether serious comorbidity present Miguelito Champion, [address] [place] [address] Referral ID Status Reason Start Date Expiration Date Visits Re quested Visits Authorized [id number] Closed 12/19/2023 02/17/2024 1 1 Summary Purpose [...] or prosecute any alcohol or drug abuse patient.[facility] the event this information is protected by the Federal Confidentiality of Alcohol and Drug Abuse Patient Records regulations: The Federal rules restrict any use of the information to criminally investigate or prosecute any alcohol or drug abuse patient.[facility] the event this information is protected by the Federal Confidentiality of Alcohol and Drug Abuse Patient Records regulations: The Federal rules restrict any use of the information to criminally investigate or prosecute any alcohol or drug abuse patient.[facility] the event this information is protected by the Federal Confidentiality of Alcohol and Drug Abuse Patient Records regulations: The Federal rules restrict any use of the information to criminally investigate or prosecute any alcohol or drug abuse patient.[facility] the event this information is protected by the Federal Confidentiality of Alcohol and Drug Abuse Patient Records regulations: The Federal rules restrict any use of the information to criminally investigate or prosecute any alcohol or drug abuse patient.[facility] the event this information is protected by the Federal Confidentiality of Alcohol and Drug Abuse Patient Records regulations: The Federal rules restrict any use of the information to criminally investigate or prosecute any alcohol or drug abuse patient.[facility] the event this information is protected by the Federal Confidentiality of Alcohol and Drug Abuse Patient Records regulations: The Federal rules restrict any use of the information to criminally investigate or prosecute any alcohol or drug abuse patient.[facility] CenterIn the event this information is protected by the Federal Confidentiality of Alcohol and Drug Abuse Patient Records regulations: The Federal rules restrict any use of the information to criminally investigate or prosecute any alcohol or drug abuse patient.[facility] CenterIn the event this information is protected by the Federal Confidentiality of Alcohol and Drug Abuse Patient Records regulations: The Federal rules restrict any use of the information to criminally investigate or prosecute any alcohol or drug abuse patient.[facility] CenterIn the event this information is protected by the Federal Confidentiality of Alcohol and Drug Abuse Patient Records regulations: The Federal rules restrict any use of the information to criminally investigate or prosecute any alcohol or drug abuse patient.[facility] CenterIn the event this information is protected by the Federal Confidentiality of Alcohol and Drug Abuse Patient Records regulations: The Federal rules restrict any use of the information to criminally investigate or prosecute any alcohol or drug abuse patient.[facility] CenterIn the event this information is protected by the Federal Confidentiality of Alcohol and Drug Abuse Patient Records regulations: The Federal rules restrict any use of the information to criminally investigate or prosecute any alcohol or drug abuse patient.[facility] CenterIn the event this information is protected by the Federal Confidentiality of Alcohol and Drug Abuse Patient Records regulations: The Federal rules restrict any use of the information to criminally investigate or prosecute any alcohol or drug abuse patient.[facility] CenterIn the event this information is protected by the Federal Confidentiality of Alcohol and Drug Abuse Patient Records regulations: The Federal rules restrict any use of the information to criminally investigate or prosecute any alcohol or drug abuse patient.[facility] CenterIn the event this information is protected by the Federal Confidentiality of Alcohol and Drug Abuse Patient Records regulations: The Federal rules restrict any use of the information to criminally investigate or prosecute any alcohol or drug abuse patient.[facility] CenterIn the event this information is protected by the Federal Confidentiality of Alcohol and Drug Abuse Patient Records regulations: The Federal rules restrict any use of the information to criminally investigate or prosecute any alcohol or drug abuse patient.[facility] CenterIn the event this information is protected by the Federal Confidentiality of Alcohol and Drug Abuse Patient Records regulations: The Federal rules restrict any use of the information to criminally investigate or prosecute any alcohol or drug abuse patient.[facility] CenterIn the event this information is protected by the Federal Confidentiality of Alcohol and Drug Abuse Patient Records regulations: The Federal rules restrict any use of the information to criminally investigate or prosecute any alcohol or drug abuse patient.[facility] CenterIn the event this information is protected by the Federal Confidentiality of Alcohol and Drug Abuse Patient Records regulations: The Federal rules restrict any use of the information to criminally investigate or prosecute any alcohol or drug abuse patient.[facility] CenterIn the event this information is protected by the Federal Confidentiality of Alcohol and Drug Abuse Patient Records regulations: The Federal rules restrict any use of the information to criminally investigate or prosecute any alcohol or drug abuse patient.[facility] CenterIn the event this information is protected by the Federal Confidentiality of Alcohol and Drug Abuse Patient Records regulations: The Federal rules restrict any use of the information to criminally investigate or prosecute any alcohol or drug abuse patient.[facility] CenterIn the event this information is protected by the Federal Confidentiality of Alcohol and Drug Abuse Patient Records regulations: The Federal rules restrict any use of the information to criminally investigate or prosecute any alcohol or drug abuse patient.[facility] CenterIn the event this information is protected by the Federal Confidentiality of Alcohol and Drug Abuse Patient Records regulations: The Federal rules restrict any use of the information to criminally investigate or prosecute any alcohol or drug abuse patient.[facility] CenterIn the event this information is protected by the Federal Confidentiality of Alcohol and Drug Abuse Patient Records regulations: The Federal rules restrict any use of the information to criminally investigate or prosecute any alcohol or drug abuse patient.[facility] CenterIn the event this information is protected by the Federal Confidentiality of Alcohol and Drug Abuse Patient Records regulations: The Federal rules restrict any use of the information to criminally investigate or prosecute any alcohol or drug abuse patient.[facility] CenterIn the event this information is protected by the Federal Confidentiality of Alcohol and Drug Abuse Patient Records regulations: The Federal rules restrict any use of the information to criminally investigate or prosecute any alcohol or drug abuse patient.[facility] CenterIn the event this information is protected by the Federal Confidentiality of Alcohol and Drug Abuse Patient Records regulations: The Federal rules restrict any use of the information to criminally investigate or prosecute any alcohol or drug abuse patient.[facility] CenterIn the event this information is protected by the Federal Confidentiality of Alcohol and Drug Abuse Patient Records regulations: The Federal rules restrict any use of the information to criminally investigate or prosecute any alcohol or drug abuse patient.[facility] CenterIn the event this information is protected by the Federal Confidentiality of Alcohol and Drug Abuse Patient Records regulations: The Federal rules restrict any use of the information to criminally investigate or prosecute any alcohol or drug abuse patient.[facility] CenterIn the event this information is protected by the Federal Confidentiality of Alcohol and Drug Abuse Patient Records regulations: The Federal rules restrict any use of the information to criminally investigate or prosecute any alcohol or drug abuse patient.[facility] CenterIn the event this information is protected by the Federal Confidentiality of Alcohol and Drug Abuse Patient Records regulations: The Federal rules restrict any use of the information to criminally investigate or prosecute any alcohol or drug abuse patient.[facility] CenterIn the event this information is protected by the Federal Confidentiality of Alcohol and Drug Abuse Patient Records regulations: The Federal rules restrict any use of the information to criminally investigate or prosecute any alcohol or drug abuse patient.[facility] CenterIn the event this information is protected by the Federal Confidentiality of Alcohol and Drug Abuse Patient Records regulations: The Federal rules restrict any use of the information to criminally investigate or prosecute any alcohol or drug abuse patient.[facility] CenterIn the event this information is protected by the Federal Confidentiality of Alcohol and Drug Abuse Patient Records regulations: The Federal rules restrict any use of the information to criminally investigate or prosecute any alcohol or drug abuse patient.[facility] CenterIn the event this information is protected by the Federal Confidentiality of Alcohol and Drug Abuse Patient Records regulations: The Federal rules restrict any use of the information to criminally investigate or prosecute any alcohol or drug abuse patient.[facility] CenterIn the event this information is protected by the Federal Confidentiality of Alcohol and Drug Abuse Patient Records regulations: The Federal rules restrict any use of the information to criminally investigate or prosecute any alcohol or drug abuse patient.[facility] CenterIn the event this information is protected by the Federal Confidentiality of Alcohol and Drug Abuse Patient Records regulations: The Federal rules restrict any use of the information to criminally investigate or prosecute any alcohol or drug abuse patient.[facility] CenterIn the event this information is protected by the Federal Confidentiality of Alcohol and Drug Abuse Patient Records regulations: The Federal rules restrict any use of the information to criminally investigate or prosecute any alcohol or drug abuse patient.[facility] CenterIn the event this information is protected by the Federal Confidentiality of Alcohol and Drug Abuse Patient Records regulations: The Federal rules restrict any use of the information to criminally investigate or prosecute any alcohol or drug abuse patient.[facility] CenterIn the event this information is protected by the Federal Confidentiality of Alcohol and Drug Abuse Patient Records regulations: The Federal rules restrict any use of the information to criminally investigate or prosecute any alcohol or drug abuse patient.[facility] CenterIn the event this information is protected by the Federal Confidentiality of Alcohol and Drug Abuse Patient Records regulations: The Federal rules restrict any use of the information to criminally investigate or prosecute any alcohol or drug abuse patient.[facility] CenterIn the event this information is protected by the Federal Confidentiality of Alcohol and Drug Abuse Patient Records regulations: The Federal rules restrict any use of the information to criminally investigate or prosecute any alcohol or drug abuse patient.[facility] CenterIn the event this information is protected by the Federal Confidentiality of Alcohol and Drug Abuse Patient Records regulations: The Federal rules restrict any use of the information to criminally investigate or prosecute any alcohol or drug abuse patient.[facility] CenterIn the event this information is protected by the Federal Confidentiality of Alcohol and Drug Abuse Patient Records regulations: The Federal rules restrict any use of the information to criminally investigate or prosecute any alcohol or drug abuse patient.[facility] CenterIn the event this information is protected by the Federal Confidentiality of Alcohol and Drug Abuse Patient Records regulations: The Federal rules restrict any use of the information to criminally investigate or prosecute any alcohol or drug abuse patient.[facility] CenterIn the event this information is protected by the Federal Confidentiality of Alcohol and Drug Abuse Patient Records regulations: The Federal rules restrict any use of the information to criminally investigate or prosecute any alcohol or drug abuse patient.[facility] CenterIn the event this information is protected by the Federal Confidentiality of Alcohol and Drug Abuse Patient Records regulations: The Federal rules restrict any use of the information to criminally investigate or prosecute any alcohol or drug abuse patient.[facility] CenterIn the event this information is protected by the Federal Confidentiality of Alcohol and Drug Abuse Patient Records regulations: The Federal rules restrict any use of the information to criminally investigate or prosecute any alcohol or drug abuse patient.[facility] CenterIn the event this information is protected by the Federal Confidentiality of Alcohol and Drug Abuse Patient Records regulations: The Federal rules restrict any use of the information to criminally investigate or prosecute any alcohol or drug abuse patient.[facility] CenterIn the event this information is protected by the Federal Confidentiality of Alcohol and Drug Abuse Patient Records regulations: The Federal rules restrict any use of the information to criminally investigate or prosecute any alcohol or drug abuse patient.[facility] CenterIn the event this information is protected by the Federal Confidentiality of Alcohol and Drug Abuse Patient Records regulations: The Federal rules restrict any use of the information to criminally investigate or prosecute any alcohol or drug abuse patient.[facility] CenterIn the event this information is protected by the Federal Confidentiality of Alcohol and Drug Abuse Patient Records regulations: The Federal rules restrict any use of the information to criminally investigate or prosecute any alcohol or drug abuse patient.[facility] CenterIn the event this information is protected by the Federal Confidentiality of Alcohol and Drug Abuse Patient Records regulations: The Federal rules restrict any use of the information to criminally investigate or prosecute any alcohol or drug abuse patient.[facility] CenterIn the event this information is protected by the Federal Confidentiality of Alcohol and Drug Abuse Patient Records regulations: The Federal rules restrict any use of the information to criminally investigate or prosecute any alcohol or drug abuse patient.[facility] CenterIn the event this information is protected by the Federal Confidentiality of Alcohol and Drug Abuse Patient Records regulations: The Federal rules restrict any use of the information to criminally investigate or prosecute any alcohol or drug abuse patient.[facility] CenterIn the event this information is protected by the Federal Confidentiality of Alcohol and Drug Abuse Patient Records regulations: The Federal rules restrict any use of the information to criminally investigate or prosecute any alcohol or drug abuse patient.[facility] CenterIn the event this information is protected by the Federal Confidentiality of Alcohol and Drug Abuse Patient Records regulations: The Federal rules restrict any use of the information to criminally investigate or prosecute any alcohol or drug abuse patient.[facility] CenterIn the event this information is protected by the Federal Confidentiality of Alcohol and Drug Abuse Patient Records regulations: The Federal rules restrict any use of the information to criminally investigate or prosecute any alcohol or drug abuse patient.[facility] CenterIn the event this information is protected by the Federal Confidentiality of Alcohol and Drug Abuse Patient Records regulations: The Federal rules restrict any use of the information to criminally investigate or prosecute any alcohol or drug abuse patient.[facility] CenterIn the event this information is protected by the Federal Confidentiality of Alcohol and Drug Abuse Patient Records regulations: The Federal rules restrict any use of the information to criminally investigate or prosecute any alcohol or drug abuse patient.[facility] CenterIn the event this information is protected by the Federal Confidentiality of Alcohol and Drug Abuse Patient Records regulations: The Federal rules restrict any use of the information to criminally investigate or prosecute any alcohol or drug abuse patient.[facility] CenterIn the event this information is protected by the Federal Confidentiality of Alcohol and Drug Abuse Patient Records regulations: The Federal rules restrict any use of the information to criminally investigate or prosecute any alcohol or drug abuse patient.[facility] CenterIn the event this information is protected by the Federal Confidentiality of Alcohol and Drug Abuse Patient Records regulations: The Federal rules restrict any use of the information to criminally investigate or prosecute any alcohol or drug abuse patient.[facility] CenterIn the event this information is protected by the Federal Confidentiality of Alcohol and Drug Abuse Patient Records regulations: The Federal rules restrict any use of the information to criminally investigate or prosecute any alcohol or drug abuse patient.[facility] CenterIn the event this information is protected by the Federal Confidentiality of Alcohol and Drug Abuse Patient Records regulations: The Federal rules restrict any use of the information to criminally investigate or prosecute any alcohol or drug abuse patient.[facility] CenterIn the event this information is protected by the Federal Confidentiality of Alcohol and Drug Abuse Patient Records regulations: The Federal rules restrict any use of the information to criminally investigate or prosecute any alcohol or drug abuse patient.[facility] CenterIn the event this information is protected by the Federal Confidentiality of Alcohol and Drug Abuse Patient Records regulations: The Federal rules restrict any use of the information to criminally investigate or prosecute any alcohol or drug abuse patient.[facility] CenterIn the event this information is protected by the Federal Confidentiality of Alcohol and Drug Abuse Patient Records regulations: The Federal rules restrict any use of the information to criminally investigate or prosecute any alcohol or drug abuse patient.[facility] Reason for Visit (unrecogniz ed section and [...] 30-39 MIN [facility]ICAL Miguelito Champion, DO [address] [place] [address] Miguelito Champion, [address] [place] [address] Referral ID Status Reason Start Date Expiration Date Visits Re quested Visits Authorized [id number] Closed 02/12/2021 02/11/2022 1 1 Reason Onset [...] Contac t Referred To Contact [facility] Diagnoses Twin with single intrauterine , first trimester, fetus 1 (HCC) 13 weeks gestation of (HCC) Obesity affecting in second trimester, unspecified obesity type ([facility]) Procedures OBSTETRIC ULTRASOUND WHI US PREG UTERUS AFTER 1ST TRIMEST GESTATION Kristen Smith MD [address] [place] [address] Phone: tel: fax: [place] [phone] Referral ID Status Reason Start Date Expiration Date V isits Requested Visits Authorized [id number] Closed Auto-Generate d Referral 07/08/2024 07/08/2025 1 1 Reason Onset Date Comments Care 07/25/2024 Reason Comments US Specialty Diagnoses / Procedures Referred By Contac t Referred To Contact [facility] Diagnoses with uncertain dates in first trimester ([facility]) Procedures OBSTETRIC ULTRASOUND WHI US PREG UTERUS AFTER 1ST TRIMEST GESTATION Shiloh Westfall APRN.MIKE [address] [facility] [place] [address] Phone: tel: fax: [address] [phone] Referral ID Status Reason Start Date Expiration Date V isits Requested Visits Authorized [id number] Closed Auto-Generate d Referral 05/23/2024 05/23/2025 1 1 Reason Onset Date Comments Care 08/22/2024 Reason Onset Date Comments Care 10/15/2024 Specialty Diagnoses / Procedures Referred By Contac t Referred To Contact [facility] Diagnoses High-risk , multigravida of advanced maternal age, antepartum (HCC) 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 ([facility]) Class 2 obesity without serious comorbidity with body mass index (BMI) of 37.0 to 37.9 in adult, unspecified obesity type Procedures OBSTETRIC ULTRASOUND WHI US PREG UTERUS AFTER 1ST TRIMEST GESTATION Jossie Gonzales MD [address] [facility] [place] [address] Phone: tel: fax: [place] [phone] [facility] [place] [address] Referral ID Status Reason Start Date Expiration Date V isits Requested Visits Authorized [id number] Closed Auto-Generate d Referral 08/25/2024 08/25/2025 1 1 Reason Onset Date Comments Refill Request 10/11/2024 Reason Onset Date Comments Care 10/29/2024 Reason Comments Breast Pump RX Care Teams (unrecognized sec tion and content) Healthcare Prof Relationship Specialty Start Date End Date Miguelito Champion, DO [address] [place] [address] PCP - General Family Practice 11/26/15 Healthcare Prof Relationship Specialty Start Date End Date Miguelito Champion DO [address] [place] [address] PCP - General Family Practice 11/26/15 Healthcare Prof Relationship Specialty Start Date End Date Miguelito Champion DO [address] [place] [address] PCP - General Family Practice 11/26/15 Healthcare Prof Relationship Specialty Start Date End Date Miguelito Champion DO [address] [place] [address] PCP - General Family Practice 11/26/15 Healthcare Prof Relationship Specialty Start Date End Date Miguelito Champion DO [address] [place] [address] PCP - General Family Practice 11/26/15 Healthcare Prof Relationship Specialty Start Date End Date Miguelito Champion DO [address] [place] [address] PCP - General Family Practice 11/26/15 Healthcare Prof Relationship Specialty Start Date End Date Miguelito Champion DO [address] [place] [address] PCP - General Family Medicine 11/26/15 Healthcare Prof Relationship Specialty Start Date End Date Miguelito Champion DO [address] [facility] [place] [place] [address] PCP - General Family Medicine 11/26/15 Healthcare Prof Relationship Specialty Start Date End Date Miguelito Champion DO [address] [place] [address] PCP - General Family Medicine 11/26/15 Healthcare Prof Relationship Specialty Start Date End Date Miguelito Champion DO [address] [place] [address] PCP - General Family Medicine 11/26/15 Healthcare Prof Relationship Specialty Start Date End Date Miguelito Champion DO [address] [place] [address] PCP - General Family Medicine 11/26/15 Healthcare Prof Relationship Specialty Start Date End Date Miguelito Champion DO [address] [place] [address] PCP - General Family Medicine 11/26/15 Healthcare Prof Relationship Specialty Start Date End Date Miguelito Champion DO [address] [place] [address] PCP - General Family Medicine 11/26/15 Healthcare Prof Relationship Specialty Start Date End Date Miguelito Champion DO [address] [place] [address] PCP - General Family Medicine 11/26/15 Healthcare Prof Relationship Specialty Start Date End Date Miguelito Champion DO [address] [place] [address] PCP - General Family Medicine 11/26/15 Healthcare Prof Relationship Specialty Start Date End Date Miguelito Champion DO [address] [place] [address] PCP - General Family Medicine 11/26/15 Healthcare Prof Relationship Specialty Start Date End Date Miguelito Champion DO [address] [place] [address] PCP - General Family Medicine 11/26/15 Healthcare Prof Relationship Specialty Start Date End Date Miguelito Champion DO [address] [place] [address] PCP - General Family Medicine 11/26/15 Healthcare Prof Relationship Specialty Start Date End Date Miguelito Champion DO [address] [place] [address] PCP - General Family Medicine 11/26/15 Healthcare Prof Relationship Specialty Start Date End Date Miguelito Champion DO [address] [place] [address] PCP - General Family Medicine 11/26/15 Healthcare Prof Relationship Specialty Start Date End Date Miguelito Champion DO [address] [place] [address] PCP - General Family Medicine 11/26/15 Healthcare Prof Relationship Specialty Start Date End Date Miguelito Champion DO [address] [place] [address] PCP - General Family Medicine 11/26/15 Healthcare Prof Relationship Specialty Start Date End Date Miguelito Champion DO [address] [place] [address] PCP - General Family Medicine 11/26/15 Healthcare Prof Relationship Specialty Start Date End Date Miguelito Champion DO [address] [place] [address] PCP - General Family Medicine 11/26/15 Karen Azar, HAND FOLDER.TUBE SIZER OPERATOR [address] [place] [address] [employer] [facility] 01/20/24 ManjuHumberto, HAND FOLDER.TUBE SIZER OPERATOR [address] [place] [address] Machine [employer] [facility] 01/20/24 Healthcare Prof Relationship Specialty Start Date End Date Miguelito Champion DO [address] [place] [address] PCP - General Family Medicine 11/26/15 Karen Azar, HAND FOLDER.TUBE SIZER OPERATOR [address] [place] [address] [employer] [facility] 01/20/24 ManjuHumberto, HAND FOLDER.TUBE SIZER OPERATOR [address] [place] [address] [employer] [facility] 01/20/24 Healthcare Prof Relationship Specialty Start Date End Date Miguelito Champion DO [address] [place] [address] PCP - General Family Medicine 11/26/15 Karen Azar, HAND FOLDER.TUBE SIZER OPERATOR [address] [place] [address] [employer] [facility] 01/20/24 Humberto Goldman, HAND FOLDER.TUBE SIZER OPERATOR [address] [place] [address] [facility] 01/20/24 Healthcare Prof Relationship Specialty Start Date End Date Miguelito Champion DO [address] [place] [address] PCP - General Family Medicine 11/26/15 Karen Azar, HAND FOLDER.TUBE SIZER OPERATOR [address] [place] [address] [facility] 01/20/24 Humberto Goldman, HAND FOLDER.TUBE SIZER OPERATOR [address] [facility] [place] [address] [facility] 01/20/24 Healthcare Prof Relationship Specialty Start Date End Date Miguelito Champion DO [address] [place] [address] PCP - General Family Medicine 11/26/15 Karen Azar, HAND FOLDER.TUBE SIZER OPERATOR [address] [facility] [place] [address] [facility] 01/20/24 Humberto Goldman, HAND FOLDER.TUBE SIZER OPERATOR [address] [place] [address] [facility] 01/20/24 Healthcare Prof Relationship Specialty Start Date End Date Miguelito Champion DO [address] [facility] [place] [address] PCP - General Family Medicine 11/26/15 Karen Azar, HAND FOLDER.TUBE SIZER OPERATOR [address] [facility] [place] [place] [address] [facility] 01/[facility]/24 Humberto Goldman, HAND FOLDER.TUBE SIZER OPERATOR [address] [facility] [place] [address] [employer] [facility] 01/20/24 Healthcare Prof Relationship Specialty Start Date End Date Migeulito Champion DO [address] [facility] [place] [address] PCP - General Family Medicine 11/26/15 Humberto Goldman, HAND FOLDER.TUBE SIZER OPERATOR [address] [place] [address] [facility] 01/20/24 Healthcare Prof Relationship Specialty Start Date End Date Miguelito Champion DO [address] [place] [address] PCP - General Family Medicine 11/26/15 Humberto Goldman, HAND FOLDER.TUBE SIZER OPERATOR [address] [facility] [place] [address] [facility] 01/20/24 Healthcare Prof Relationship Specialty Start Date End Date Miguelito Champion DO [address] [place] [address] PCP - General Family Medicine 11/26/15 Humberto Goldman, HAND FOLDER.TUBE SIZER OPERATOR [address] [place] [address] [facility] 01/20/24 Healthcare Prof Relationship Specialty Start Date End Date Miguelito Champion DO [address] [place] [address] PCP - General Family Medicine 11/26/15 ManjuHumberto, HAND FOLDER.TUBE SIZER OPERATOR [address] [place] [address] [employer] [facility] 01/20/24 Healthcare Prof Relationship Specialty Start Date End Date Miguelito Champion DO [address] [place] [address] PCP - General Family Medicine 11/26/15 ManjuHumberto, HAND FOLDER.TUBE SIZER OPERATOR [address] [place] [address] [employer] [facility] 01/20/24 Healthcare Prof Relationship Specialty Start Date End Date Miguelito Champion DO [address] [place] [address] PCP - General Family Medicine 11/26/15 ManjuHumberto, HAND FOLDER.TUBE SIZER OPERATOR [address] [place] [address] [employer] [facility] 01/20/24 Healthcare Prof Relationship Specialty Start Date End Date Miguelito Champion DO [address] [place] [address] PCP - General Family Medicine 11/26/15 ManjuHumberto, HAND FOLDER.TUBE SIZER OPERATOR [address] [place] [address] [facility] 01/20/24 Healthcare Prof Relationship Specialty Start Date End Date Miguelito Champion DO [address] [place] [address] PCP - General Family Medicine 11/26/15 Humberto Goldman, HAND FOLDER.TUBE SIZER OPERATOR [address] [place] [address] [employer] [facility] 01/20/24 Healthcare Prof Relationship Specialty Start Date End Date Miguelito Champion DO [address] [place] [address] PCP - General Family Medicine 11/26/15 Humberto Goldman, HAND FOLDER.TUBE SIZER OPERATOR [address] [place] [address] [facility] 01/20/24 Healthcare Prof Relationship Specialty Start Date End Date Miguelito Champion DO [address] [place] [address] PCP - General Family Medicine 11/26/15 Humberto Goldman, HAND FOLDER.TUBE SIZER OPERATOR [address] [place] [address] [facility] 01/20/24 Knedal Oro, HAND FOLDER.TUBE SIZER OPERATOR [address] [facility] [address] [employer] [facility] 07/28/24 Healthcare Prof Relationship Specialty Start Date End Date Miguelito Champion DO [address] [place] [address] PCP - General Family Medicine 11/26/15 Humberto Goldman, HAND FOLDER.TUBE SIZER OPERATOR [address] [place] [address] [facility] 01/20/24 Kendal Oro, HAND FOLDER.TUBE SIZER OPERATOR [address] [place] [address] [facility] 07/28/24 Healthcare Prof Relationship Specialty Start Date End Date Miguelito Champion DO [address] [place] [address] PCP - General Family Medicine 11/26/15 Humberto Goldman, HAND FOLDER.TUBE SIZER OPERATOR [address] [place] [address] [facility] 01/20/24 Kendal Oro, HAND FOLDER.TUBE SIZER OPERATOR [address] [place] [address] [facility] 07/28/24 Healthcare Prof Relationship Specialty Start Date End Date Miguelito Champion DO [address] [place] [address] PCP - General Family Medicine 11/26/15 Humberto Goldman, HAND FOLDER.TUBE SIZER OPERATOR [address] [place] [address] [facility] 01/20/24 Kendal Oro, HAND FOLDER.TUBE SIZER OPERATOR [address] [place] [address] [facility] 07/28/24 Healthcare Prof Relationship Specialty Start Date End Date Miguelito Champion DO [address] [place] [address] PCP - General Family Medicine 11/26/15 Humberto Goldman, HAND FOLDER.TUBE SIZER OPERATOR [address] [place] [address] [employer] [facility] 01/20/24 Kendal Oro, HAND FOLDER.TUBE SIZER OPERATOR [address] [place] [address] [facility] 07/28/24 Healthcare Prof Relationship Specialty Start Date End Date Miguelito Champion DO [address] [place] [address] PCP - General Family Medicine 11/26/15 Humberto Goldman, HAND FOLDER.TUBE SIZER OPERATOR [address] [place] [address] [employer] [facility] 01/20/24 Kendal Oro, HAND FOLDER.TUBE SIZER OPERATOR [address] [place] [address] [employer] [facility] [facility] 07/28/24 Healthcare Prof Relationship Specialty Start Date End Date Miguelito Champion DO [address] [place] [address] PCP - General Family Medicine 11/26/15 Humberto Goldman, HAND FOLDER.TUBE SIZER OPERATOR [address] [place] [address] [employer] [facility] 01/20/24 Kendal Oro, HAND FOLDER.TUBE SIZER OPERATOR [address] [place] [address] [facility] [employer] [facility] 07/28/24 Healthcare Prof Relationship Specialty Start Date End Date Miguelito Champion DO [address] [place], [place] [address] PCP - General Family Medicine 11/26/15 Humberto Goldman, HAND FOLDER.TUBE SIZER OPERATOR [address] [place], [place] [address] [facility] 01/20/24 Kendal Oro, HAND FOLDER.TUBE SIZER OPERATOR [address] [place], [place] [address] [facility] 07/28/24 Healthcare Prof Relationship Specialty Start Date End Date Miguleito Champion DO [address] [place] [address] PCP - General Family Medicine 11/26/15 Humberto Goldman, HAND FOLDER.TUBE SIZER OPERATOR [address] [place] [address] [facility] 01/20/24 Kendal Oro, HAND FOLDER.TUBE SIZER OPERATOR [address] [place], [place] [address] [facility] 07/28/24 INFORMATION SOURCE (unrecogn ized section and content) DATE CREATED AUTHOR [facility]/20[facility] DATE CREATED AUTHOR AUTHOR'S ORGANIZ ATION 12/25/2024 [facility] FOR RECORDS PERTAINING TO PATIENTS WHO ARE [...] BE BASED ON THE PRIMARY CLINICAL RECORDS. [facility] [employer] [facility]. provides no warranty or guarantee of the accuracy or completeness of information in this document.
--- OUTSIDE RECORDS SUMMARY | 2025-01-01 05:30 | XMS RPT_ITS | CCD ---
Author Organization [facility] Care Team Providers Care Clinical Account Specialist Name Role Phone Miguelito Champion DO Primary Care Provider Miguelito Champion DO Primary Care Provider Azar PROPERTY INVESTOR.STATISTICAL PROGRAMMER ANALYSTKaren Unavailable Manju PROPERTY INVESTOR.STATISTICAL PROGRAMMER ANALYSTHumberto Unavailable Hsorty PROPERTY INVESTOR.STATISTICAL PROGRAMMER ANALYSTKendal Unavailable Denae Renteria Referring Unavailable Champion, Miguelito [...] Unavailable CHAMPION, MIGUELITO L Primary Care Unavailable OLNI, KRISTEN Referring Unavailable DENAE RENTERIA Attending Unavailable [...] Primary Care Unavailable APRIL, JOSSIE Referring Unavailable CHMAPION, MIGUELITO L Primary Care Unavailable APRIL, JOSSIE [...] Latex (1 source) Latex Substance Allergy 9 [facility] (20 sources) Latex; Translations: [LATEX] Propensity to adverse reactions 9 [facility] Work Phone: (20 sources) Bees; Translations: [BEES] Propensity to adverse reactions 9 [facility] Work Phone: (1 source) Latex Drug allergy (disorder) 5 [facility] (1 source) venom-honey bee Drug allergy (disorder) 5 [facility] Medications Current Medications Medication Drug [...] Comment on above: Take 1 capsule by [facility] three times daily for 7 days. [...] oral tablet (20 sources) Start: 10-16-2024 thyroid (SECOND BALLER THYROID) 120 mg tablet Take 1 tablet PO 3 days a week and 2 tablets PO 4 days a week 90 tablet 3 10/16/2024 Active Start: 08-23-2024 End: 10-11-2024 thyroid (SECOND BALLER THYROID) 120 mg tablet Take 1 tablet PO 3 days a week and 2 tablets PO 4 days a week 08/23/2024 10/11/2024 Discontinued Start: 07-15-2024 End: 08-23-2024 thyroid (SECOND BALLER THYROID) 120 mg tablet Take 1 tablet PO 4 days a week and 2 tablets PO 3 days a week 07/15/2024 08/23/2024 Discontinued Start: 05-26-2024 End: 07-15-2024 thyroid (SECOND BALLER THYROID) 120 mg tablet Take 1 tablet PO 5 days a week and 2 tablets PO 2 days a week 140 tablet 3 05/26/2024 07/15/2024 Discontinued Start: 04-02-2023 End: 05-26-2024 take 2 tablets by mouth once daily SECOND BALLER THYROID 60 mg tablet Indications: Acquired hypothyroidism TAKE 2 TABLETS BY MOUTH EVERY DAY 180 tablet 3 04/14/2024 05/26/2024 Discontinued Start: 09-25-2022 End: 03-31-2023 take 2 tablets by mouth once daily SECOND BALLER THYROID 60 mg tablet Indications: Acquired hypothyroidism TAKE 2 TABLETS BY MOUTH EVERY DAY 60 tablet 3 10/13/2022 03/31/2023 Discontinued Start: 07-05-2022 End: 09-25-2022 SECOND BALLER THYROID 60 mg tablet Silvia cations: Acquired hypothyroidism Take 1 tablet 2 days a week and 2 tablets 5 days a week 144 tablet 3 07/05/2022 09/25/2022 Discontinued Start: 07-08-2021 End: 07-05-2022 SECOND BALLER THYROID 60 mg tablet Silvia cations: Acquired hypothyroidism Take 1 tablet 4 days a week and 2 tablets 3 days a week 120 tablet 2 12/09/2021 07/05/2022 Discontinued Start: 05-04-2022 SECOND BALLER THYROID 60 mg Indications: Acquired hypothyroidism Take 1 tablet 5 days a week and 2 tablets 2 days a week 108 tablet 1 06/15/2021 Active Start: 05-23-2021 End: 06-13-2021 SECOND BALLER THYROID 60 mg Indications : Acquired hypothyroidism Take 1 tablet 5 days a week and 2 tablets 2 days a week 108 tablet 1 05/23/2021 06/13/2021 Discontinued Start: 05-18-2021 End: 05-21-2021 SECOND BALLER THYROID 60 mg Indications : Acquired hypothyroidism Take 1 tablet 5 days a week and 2 tablets 2 days a week 34 tablet 0 05/18/2021 05/21/2021 Discontinued Start: 05-02-2021 End: 05-18-2021 SECOND BALLER THYROID 60 mg Indications : Acquired hypothyroidism Take 1 tablet 1 days a week and 2 tablets 6 days a week 28 tablet 0 05/04/2021 05/18/2021 Discontinued Start: 01-14-2020 End: 04-29-2021 SECOND BALLER THYROID 60 mg Indications : Acquired hypothyroidism [...] tablets daily . TAKE 2 TABLETS BY [facility] EVERY DAY Completed/Discontinued Medications Medication Drug Class(es) [...] Take 100 mg by mouth once daily. [id number] 0.3 ml EPINEPHrine 1 mg/ml auto-injector (20 [...] 4.5 mg by mouth daily at bedtime. Zywicpfg-Vo-Shg-Fe-F A ( VITAMIN) tab (9 sources) take 1 tablet by mouth once Ctvjubbd-Eb-Zmb-Fe -FA ( VITAMIN) tab Take 1 tablet by mouth. 0 Active Comment on above: Take 1 tablet by yadira th. Omossrds-Je-Pkv-Fe-F A tab (4 sources) End: 08-04-2022 take 1 tablet by mouth once Hszwydag-Qv-Jcf-Fe -FA tab Take 1 tablet by mouth. 08/04/2022 Discontinued (Course of therapy completed) End: 08-04-2022 take 1 tablet by mouth once Wttyeaid-Tw-Xwf-Fe-FA tab Take 1 tablet by mouth. 0 08/04/2022 Discontinued (Course of therapy completed) take 1 tablet by yadira th once Xnvlbzxl-Hn-Qos-Fe-FA tab Take 1 tablet by mouth. 0 [...] [Supervision of high risk in second trimester ([facility])] Onset: 07-25-2024 Episodic Other complications of (1 source) Supervision of elderly multigravida, second trimester; Translations: [AMA (advanced maternal age) multigravida 35+, second trimester ([facility])] Onset: 07-25-2024 Episodic Other complications of (1 [...] Range Facil ity CNPRaysa 12-16-2024 CNPN Telephone ([facility]) TEJALNEAN ARGUELLO ([id number]) 1990 F Date Time Provider Department 12/16/24 MIGUELITO CHAMPIONWS During your visit today, we recorded the following information about you: Miguelito Champion DO 12/16/2024 11:20 AM Signed Pleas inform patient that her free t4 is still low but slightly improved, TSH is improving. Make sure she is taking her SECOND BALLER thyroid correctly. I know she is getting closer to delivery date. Can try to take 2 extra tablets a week such as extra on Mon and Wed each week of her SECOND BALLER thyroid DO Natasha Skelton Susan LPN 12/16/2024 11:24 AM Signed Pt. informed via My chart Allergies As of Date: 12/16/2024 Noted Allergy Reaction BEES 07/07/2008 7 - Swelling LATEX 07/07/2008 4 - Hives Date Reviewed: 12/11/2024 Reviewed by: Tasha Carias MA - Fully Assessed Prescriptions as of 12/16/2024 - thyroid (SECOND BALLER THYROID) 120 mg tablet Take 1 tablet [...] by LISA LEÓN LPN on 12/16/24 Normal [facility] ROUTINE, GROUP B ST REPTOCOCCUS BY PCRon 12-11-2024 ROUTINE, GROUP B STREPTOCOCCUS BY PCR Not detected Normal [facility] Comment on above: Performed By: #### 7 3752-8, 5195-3, 98278-5 #### [facility] CLIA [id number] [address] [place] [address] [place] T4 Free SerPl-mCncon 025 Free T4 [Mass/Vol] 0.8 ng/dL Low 0.9-1.7 [facility] Comment on above: Order Comment: Speci men Type: BLOOD SPECIMEN Ordering Facility: [facility] Address: [address] [place] [address] Performed By: #### 3 024-7, 3053-6, 3016-3 #### [facility] CLIA [id number] [address] [place] [address] [place] TSH SerPl-aCncon 12-11-2024 TSH Qn 0.335 m[IU]/L Normal 0.270-4.200 [facility] Comment on above: Order Comment: Selam walsh Type: BLOOD SPECIMEN Ordering Facility: [facility] Address: [address] [place] [address] Result Comment: If t he patient is , TSH reference range varies by gestational period: First Trimester (weeks 9-12): 0.180-2.990 mIU/L Second Trimester: 0.110-3.980 mIU/L Third Trimester: 0.480-4.710 mIU/L Homer Caputo et al. A Practical Approach for the Verifications and Determination of Site- and Trimester-Specific Reference Intervals for Thyroid Function tests in . Thyroid, 2019:29:3:412-420. Moose E, et al. 2017 Guidelines of the [place] Thyroid Association for the Diagnosis and Management of Thyroid Disease during and the . Thyroid, 2017:27:3:315-389. Performed By: #### 3 024-7, 3053-6, 3016-3 #### [facility] CLIA [id number] [address] [place] [address] [place] CNPNon 11-13-2024 CNPN Telephone ([facility]) NENA LEIVA ([id number]) 1990 F Date Time Provider Department 11/13/24 [facility] During your visit today, we recorded [...] 11:06 AM Signed Notified of below via [place]. Glo Smith MA Allergies As of Date: 11/13/2024 Noted Allergy Reaction BEES 07/07/2008 7 - Swelling LATEX 07/07/2008 4 - Hives Date Reviewed: 11/12/2024 Reviewed by: Freya Velazquez MD - Fully Assessed Reason for Visit: Patient Question [1477] Primary Visit Diagnosis:Multinodular goiter [E04.2] Order(s):THYROID STIMULATING HORMONE [SQTSH] Order #: [id number] FUTURE T4 FREE/FREE THYROXINE [SQFT4] Order #: [id number] FUTURE Prescriptions as of 11/18/2024 - thyroid (SECOND BALLER THYROID) 120 mg tablet Take 1 tablet [...] Status:Closed by GLO SMITH on 11/18/24 Normal [facility] T4 Free SerPl-chavo 025 Free T4 [Mass/Vol] 0.7 ng/dL Low 0.9-1.7 [facility] Comment on above: Order Comment: Speci men Type: BLOOD SPECIMEN Ordering Facility: [facility] Address: [address] [place] [address] Performed By: #### 7 3752-8, 5195-3, 87024-7 #### [facility] CLIA [id number] [address] [place] [address] [place] [address] [place] TSH SerPl-aCncon 11-12-2024 TSH Qn 1.580 m[IU]/L Normal 0.270-4.200 [facility] Comment on above: Order Comment: Speci men Type: BLOOD SPECIMEN Ordering Facility: [facility] Address: [address] [place] [address] Result Comment: If t he patient is , TSH reference range varies by gestational period: First Trimester (weeks 9-12): 0.180-2.990 mIU/L Second Trimester: 0.110-3.980 mIU/L Third Trimester: 0.480-4.710 mIU/L Homer Caputo et al. A Practical Approach for the Verifications and Determination of Site- and Trimester-Specific Reference Intervals for Thyroid Function tests in . Thyroid, 2019:29:3:412-420. Moose Lopez, et al. 2017 Guidelines of the [place] Thyroid Association for the Diagnosis and Management of Thyroid Disease during and the . Thyroid, 2017:27:3:315-389. Performed By: #### 7 3752-8, 5195-3, 01555-9 #### [facility] CLIA [id number] [address] [place] [address] [place] [facility] CNPRaysa 10-29-2024 CNPN Telephone (OBGY[facility]) NENA LEIVA ([id number]) 1990 F Date Time Provider Department 10/29/24 LIANNA CAPONE OBGYWM During your visit today, we recorded the following information about you: Kristen Chang RN 10/29/2024 10:06 AM Signed Received breast pump RX from [employer]. To DM to sign. GILMAR Cottrell Lindsey, RN 10/29/2024 12:33 PM Signed Order signed and faxed. Juliana Huston RN Allergies As of Date: 10/29/2024 Noted Allergy Reaction BEES 07/07/2008 7 - Swelling LATEX 07/07/2008 4 - Hives Date Reviewed: 10/29/2024 Reviewed by: Kristen Smith MD - Fully Assessed Reason for Visit: Breast Pump RX [Other] Prescriptions as of 10/29/2024 - thyroid (SECOND BALLER THYROID) 120 mg tablet Take 1 tablet [...] Encounter Status:Closed by JULIANA HUSTON on 10/29/24 [facility] LE[facility] ([id number]) 1990 F Date Time Provider Department 10/27/24 MIGUELITO CHAMPION [facility] During your visit today, we recorded the [...] tablet 2 days a week for her SECOND BALLER thyroid 120 mg Recheck labs 1 month [...] Date Reviewed: 10/15/2024 Reviewed by: Lauren Madera APRN.STATISTICAL PROGRAMMER ANALYST - Fully Assessed Prescriptions as of 10/30/2024 - thyroid (SECOND BALLER THYROID) 120 mg tablet Take 1 tablet [...] Status:Closed by PIPER MISTRY on 10/30/24 [facility] Vania 10-24-2024 [facility] NENA LEIVA ([id number]) 1990 F Date Time Provider Department 10/24/24 [facility] During your visit today, we recorded [...] tablet 2 days a week for her SECOND BALLER thyroid 120 mg Recheck labs 1 month DO Natasha Skelton Susan LPN 10/24/2024 5:09 PM Signed Pt. informed via my chart. Allergies As of Date: 10/24/2024 Noted Allergy Reaction BEES 07/07/2008 7 - Swelling LATEX 07/07/2008 4 - Hives Date Reviewed: 10/15/2024 Reviewed by: Lauren Madera APRN.[facility] - Fully Assessed Primary Visit Diagnosis:Acquired hypothyroidism [E03.9] Order(s):THYROID STIMULATING HORMONE [SQTSH] Order #: [id number] FUTURE T4 FREE/FREE THYROXINE [SQFT4] Order #: [id number] FUTURE Prescriptions as of 10/24/2024 - thyroid (SECOND BALLER THYROID) 120 mg tablet Take 1 tablet [...] by LISA LEÓN LPN on 10/24/24 Normal [facility] Examination level ultrasound on 10-16-2024 [facility] CBC W Auto Differential pane l (Bld)on 10-15-2024 Basophils (Bld) [#/Vol] 0.05 10*3/uL Normal <0.11 [facility] Comment on above: Order Comment: Speci men Type: BLOOD SPECIMEN Ordering Facility: [facility] Address: [address] [place] [address] Performed By: #### 7 3752-8, 5195-3, 35420-9 #### [facility] CLIA [id number] [address] [place] [address] [place] Basophils/100 WBC (Bld) 0.4 % Normal [facility] Comment on above: Order Comment: Speci men Type: BLOOD SPECIMEN Ordering Facility: [facility] Address: [address] [place] [address] Performed By: #### 7 3752-8, 5195-3, 81659-3 #### [facility] CLIA [id number] [address] [place] [address] [place] Differential cell count method Nom (Bld) Auto Normal [facility] Comment on above: Order Comment: Speci men Type: BLOOD SPECIMEN Ordering Facility: [facility] Address: [address] [place] [address] Performed By: #### 7 3752-8, 5195-3, 66269-3 #### [facility] CLIA [id number] [address] [place] [address] [place] Eosinophils (Bld) [#/Vol] 0.16 10*3/uL Normal <0.46 [facility] Comment on above: Order Comment: Speci men Type: BLOOD SPECIMEN Ordering Facility: [facility] Address: [address] [place] [address] Performed By: #### 7 3752-8, 5195-3, 65743-7 #### [facility] CLIA [id number] [address] [place] [address] [place] Eosinophils/100 WBC (Bld) 1.2 % Normal [facility] Comment on above: Order Comment: Speci men Type: BLOOD SPECIMEN Ordering Facility: [facility] Address: [address] [place] [address] Performed By: #### 7 3752-8, 5195-3, 14104-3 #### [facility] CLIA [id number] [address] [place] [address] [place] Erythrocyte distribution width (RBC) [Ratio] 13.1 % Normal 11.5-15.0 [facility] Comment on above: Order Comment: Speci men Type: BLOOD SPECIMEN Ordering Facility: [facility] Address: [address] [place] [address] Performed By: #### 7 3752-8, 5195-3, 73431-2 #### [facility] CLIA [id number] [address] [place] [address] [place] Hematocrit (Bld) [Volume fraction] 36.1 % Normal 36.0-46.0 [facility] Comment on above: Order Comment: Speci men Type: BLOOD SPECIMEN Ordering Facility: [facility] Address: [address] [place] [address] Performed By: #### 7 3752-8, 5195-3, 13946-9 #### [facility] CLIA [id number] [address] [place] [address] [place] Hemoglobin (Bld) [Mass/Vol] 12.5 g/dL Normal 11.5-15.5 [facility] Comment on above: Order Comment: Speci men Type: BLOOD SPECIMEN Ordering Facility: [facility] Address: [address] [place] [address] Performed By: #### 7 3752-8, 5195-3, 75318-9 #### [facility] CLIA [id number] [address] [place] [address] [place] Immature granulocytes (Bld) [#/Vol] 0.08 10*3/uL Normal <0.10 [facility] Comment on above: Order Comment: Speci men Type: BLOOD SPECIMEN Ordering Facility: [facility] Address: [address] [place] [address] Performed By: #### 7 3752-8, 5195-3, 22435-8 #### [facility] CLIA [id number] [address] [place] [address] [place] Immature granulocytes/100 WBC (Bld) 0.6 % Normal [facility] Comment on above: Order Comment: Speci men Type: BLOOD SPECIMEN Ordering Facility: [facility] Address: [address] [place] [address] Performed By: #### 7 3752-8, 5195-3, 06659-3 #### [facility] CLIA [id number] [address] [place] [address] [place] Lymphocytes (Bld) [#/Vol] 2.18 10*3/uL Normal 1.00-4.00 [facility] Comment on above: Order Comment: Speci men Type: BLOOD SPECIMEN Ordering Facility: [facility] Address: [address] [place] [address] Performed By: #### 7 3752-8, 5-3, 34566-5 #### [facility] CLIA [id number] [address] [place] [address] [place] Lymphocytes/100 WBC (Bld) 16.3 % Normal [facility] Comment on above: Order Comment: Speci men Type: BLOOD SPECIMEN Ordering Facility: [facility] Address: [address] [place] [address] Performed By: #### 7 3752-8, 5194-3, 70195-5 #### [facility] CLIA [id number] [address] [place] [address] [place] MCH (RBC) [Entitic mass] 28.4 pg Normal 26.0-34.0 [facility] Comment on above: Order Comment: Speci men Type: BLOOD SPECIMEN Ordering Facility: [facility] Address: [address] [place] [address] Performed By: #### 7 3752-8, 5194-3, 97165-0 #### [facility] CLIA [id number] [address] [place] [address] [place] MCHC (RBC) [Mass/Vol] 34.6 g/dL Normal 30.5-36.0 [facility] Comment on above: Order Comment: Speci men Type: BLOOD SPECIMEN Ordering Facility: [facility] Address: [address] [place] [address] Performed By: #### 7 3752-8, 5194-3, 20648-5 #### [facility] CLIA [id number] [address] [place] [address] [place] MCV (RBC) [Entitic vol] 82.0 fL Normal 80.0-100.0 [facility] Comment on above: Order Comment: Speci men Type: BLOOD SPECIMEN Ordering Facility: [facility] Address: [address] [place] [address] Performed By: #### 7 3752-8, 5194-3, 70837-3 #### [facility] CLIA [id number] [address] [place] [address] [place] Monocytes (Bld) [#/Vol] 0.70 10*3/uL Normal <0.87 [facility] Comment on above: Order Comment: Speci men Type: BLOOD SPECIMEN Ordering Facility: [facility] Address: [address] [place] [address] Performed By: #### 7 3752-8, 5195-3, 09545-2 #### [facility] CLIA [id number] [address] [place] [address] [place] Monocytes/100 WBC (Bld) 5.2 % Normal [facility] Comment on above: Order Comment: Speci men Type: BLOOD SPECIMEN Ordering Facility: [facility] Address: [address] [place] [address] Performed By: #### 7 3752-8, 3, 42371-7 #### [facility] CLIA [id number] [address] [place] [address] [place] Neutrophils (Bld) [#/Vol] 10.21 10*3/uL High 1.45-7.50 [facility] Comment on above: Order Comment: Speci men Type: BLOOD SPECIMEN Ordering Facility: [facility] Address: [address] [place] [address] Performed By: #### 7 3752-8, 3, 28846-5 #### [facility] CLIA [id number] [address] [place] [address] [place] Neutrophils/100 WBC (Bld) 76.3 % Normal [facility] Comment on above: Order Comment: Speci men Type: BLOOD SPECIMEN Ordering Facility: [facility] Address: [address] [place] [address] Performed By: #### 7 3752-8, 5195-3, 97484-5 #### [facility] CLIA [id number] [address] [place] [address] [place] Nucleated RBC (Bld) [#/Vol] 10*3/uL Normal <0.01 [facility] Comment on above: Order Comment: Speci men Type: BLOOD SPECIMEN Ordering Facility: [facility] Address: [address] [place] [address] Performed By: #### 7 3752-8, 5195-3, 67319-0 #### [facility] CLIA [id number] [address] [place] [address] [place] Nucleated RBC/100 WBC (Bld) [Ratio] 0.0 /100 WBC Normal [facility] Comment on above: Order Comment: Speci men Type: BLOOD SPECIMEN Ordering Facility: [facility] Address: [address] [place] [address] Performed By: #### 7 3752-8, 5195-3, 58668-0 #### [facility] CLIA [id number] [address] [place] [address] [place] Platelet mean volume (Bld) [Entitic vol] 9.4 fL Normal 9.0-12.7 [facility] Comment on above: Order Comment: Speci men Type: BLOOD SPECIMEN Ordering Facility: [facility] Address: [address] [place] [address] Performed By: #### 7 3752-8, 5195-3, 57859-2 #### [facility] CLIA [id number] [address] [place] [address] [place] Platelets (Bld) [#/Vol] 213 10*3/uL Normal 150-400 [facility] Comment on above: Order Comment: Speci men Type: BLOOD SPECIMEN Ordering Facility: [facility] Address: [address] [place] [address] Performed By: #### 7 3752-8, 5195-3, 38129-8 #### [facility] CLIA [id number] [address] [place] [address] [place] RBC (Bld) [#/Vol] 4.40 10*6/uL Normal 3.90-5.20 [facility] Comment on above: Order Comment: Speci men Type: BLOOD SPECIMEN Ordering Facility: [facility] Address: [address] [place] [address] Performed By: #### 7 3752-8, 5195-3, 70968-0 #### [facility] CLIA [id number] [address] [place] [address] [place] WBC (Bld) [#/Vol] 13.38 10*3/uL High 3.70-11.00 [facility] Comment on above: Order Comment: Speci men Type: BLOOD SPECIMEN Ordering Facility: [facility] Address: [address] [place] [address] Performed By: #### 7 3752-8, 5195-3, 56769-0 #### [facility] CLIA [id number] [address] [place] [address] [facility] [place] Examination level ultrasound on 10-15-2024 Radiology Study observation (narrative) [facility] GESTATIONAL GLUCOSE SCREEN, 1-HOUR, 50 GRAM, NON-FASTINGon 10-15-2024 Glucose [Mass/Vol] 129 mg/dL Normal 74-134 [facility] Comment on above: Order Comment: Speci men Type: BLOOD SPECIMEN Ordering Facility: [facility] Address: [address] [place] [address] Result Comment: [facility] Congress of Obstetricians and Gynecologists (Lucas/Harjit) guidelines state a gestational diabetes mellitus positive screen is made, in women not previously diagnosed with overt diabetes, when the 1 hr plasma glucose level is equal to or above 140 mg/dL. The [facility] Telecommunications Field Technician and [facility] recommends a 135 mg/dL cutoff. Performed By: #### 3 024-7, 3053-6, 3016-3 #### [facility] CLIA [id number] [address] [id number] [address] [place] Reagin and Treponema pallidu m IgG and IgM [Interp]on 10-15-2024 T. pallidum IgG+IgM IA Ql (S) Non-Reactive Normal Nonreactive [facility] Comment on above: Order Comment: Speci men Type: BLOOD SPECIMEN Ordering Facility: [facility] Address: [address] [place] [address] Performed By: #### 7 3752-8, 5195-3, 19922-3 #### [facility] CLIA [id number] [address] [place] [address] [place] Reagin+T pallidum IgG+IgM Se rPl-Impon 10-15-2024 Reagin and Treponema pallidum IgG and IgM [Interp] Cannot exclude recent Treponemal infection if specimen collected within 7-10 days after appearance of suspect lesions or 2-3 weeks after an exposure. Clinical correlation is required. Normal [facility] Comment on above: Order Comment: Speci men Type: BLOOD SPECIMEN Ordering Facility: [facility] Address: [address] [place] [address] Performed By: #### 7 3752-8, 5195-3, 49815-3 #### [facility] CLIA [id number] [address] [place] [address] [place] T4 Free SerPl-mCncon 025 Free T4 [Mass/Vol] 0.7 ng/dL Low 0.9-1.7 [facility] Comment on above: Order Comment: Speci men Type: BLOOD SPECIMEN Ordering Facility: [facility] Address: [address] [place] [address] Performed By: #### 3 024-7, 3053-6, 3016-3 #### [facility] CLIA [id number] [address] [place] [address] [place] TSH W/REFLEX FT4on 5 TSH Qn 0.663 m[IU]/L Normal 0.270-4.200 [facility] Comment on above: Order Comment: Speci men Type: BLOOD SPECIMEN Ordering Facility: [facility] Address: [address] [place] [address] Result Comment: If t he patient is , TSH reference range varies by gestational period: First Trimester (weeks 9-12): 0.180-2.990 mIU/L Second Trimester: 0.110-3.980 mIU/L Third Trimester: 0.480-4.710 mIU/L Homer L, et al. A Practical Approach for the Verifications and Determination of Site- and Trimester-Specific Reference Intervals for Thyroid Function tests in . Thyroid, 2019:29:3:412-420. Moose Lopez, et al. 2017 Guidelines of the [place] Thyroid Association for the Diagnosis and Management [...] Lopez et al. 2017 Guidelines of the [place] Thyroid Association for the Diagnosis and Management of Thyroid Disease during and the . Thyroid, 2017:27:3:315-389. Performed By: #### 3 024-7, 3053-6, 3016-3 #### [facility] CLIA [id number] [address] [place], [place] [address] [address] [place] Result Comment: If [...] Lopez et al. 2017 Guidelines of the [place] Thyroid Association for the Diagnosis and Management of Thyroid Disease during and the . Thyroid, 2017:27:3:315-389. TYPE + SCREEN PRENATALon ABO A Normal [facility] Comment on above: Order Comment: Speci men Type: BLOOD SPECIMEN Ordering Facility: [facility] Address: [address] [place] [address] Performed By: #### 7 3752-8, 5195-3, 32781-0 #### [facility] CLIA [id number] [address] [place] [address] [place] Rh Nom (Bld) Negative Normal [facility] Comment on above: Order Comment: Speci men Type: BLOOD SPECIMEN Ordering Facility: [facility] Address: [address] [place] [address] Performed By: #### 7 3752-8, 5195-3, 92850-6 #### [facility] CLIA [id number] [address] [place] [address] [place] TYPE AND SCREEN EXPIRATION 10/18/2024 23:59 Normal [facility] Comment on above: Order Comment: Speci men Type: BLOOD SPECIMEN Ordering Facility: [facility] Address: [address] [place] [address] Performed By: #### 7 3752-8, 5195-3, 44536-7 #### [facility] CLIA [id number] [address] [place] [address] [place] T4 Free SerPl-mCncon 025 Free T4 [Mass/Vol] 0.7 ng/dL Low 0.9-1.7 [facility] Comment on above: Order Comment: Speci men Type: BLOOD SPECIMEN Ordering Facility: [facility] Address: [address] [place] [address] Performed By: #### 7 3752-8, 5195-3, 36115-3 #### [facility] CLIA [id number] [address] [place] [address] [place] TSH SerPl-aCncon 09-19-2024 TSH Qn 1.370 m[IU]/L Normal 0.270-4.200 [facility] Comment on above: Order Comment: Speci men Type: BLOOD SPECIMEN Ordering Facility: [facility] Address: [address] [place] [address] Result Comment: If t he patient is , TSH reference range varies by gestational period: First Trimester (weeks 9-12): 0.180-2.990 mIU/L Second Trimester: 0.110-3.980 mIU/L Third Trimester: 0.480-4.710 mIU/L Homer Caputo et al. A Practical Approach for the Verifications and Determination of Site- and Trimester-Specific Reference Intervals for Thyroid Function tests in . Thyroid, 2019:29:3:412-420. Moose Lopez, et al. 2017 Guidelines of the [place] Thyroid Association for the Diagnosis and Management of Thyroid Disease during and the . Thyroid, 2017:27:3:315-389. Performed By: #### 7 3752-8, 5195-3, 42200-2 #### [facility] CLIA [id number] [address] [place] [address] [place] Examination level ultrasound [...] 0 oz EFW by: Hadlock (HC-AC-FL) Extended Insurance Examiner 5.9 mm CM 3.7 mm 11% Nicolaides [...] normal LVOT view: normal 3-vessel view: normal 6-hckzvn-tevspea view: normal Heart / Thorax Situs: situs [...] Read By: Jossie Gonzales M.D. MATERNAL MEDICINE [facility] CNOVon 08-23-2024 CNOV Office Visit (FAMPWS ) NENA LEIVA ([id number]) 1990 F Date Time Provider Department 08/23/24 9[facility], we recorded [...] 3 days and managed by OBGYN in [place]. She has had 3 other successful vaginal births-1 davies, 1 set of twins. She is taking her vitamins at this time. Hypothyroidism, she is taking 120 mg of SECOND BALLER thyroid 4 days a week and 240 [...] E, et al. 2017 Guidelines of the [place] Thyroid Association for the Diagnosis and Management [...] daily. cetirizine (ZYRTEC) 10 mg tablet thyroid (SECOND BALLER THYROID) 120 mg tablet Take 1 tablet [...] 2. Scre (more content not included)... Normal [facility] Examination level ultrasound on 08-22-2024 Radiology Study observation (narrative) [facility] Free T4 [Mass/Vol]on 025 Interpretation and review of laboratory results Abnormal [facility] No Panel Informationon 08-22 [facility] T4 FREE/FREE THYROXINEon Free T4 [Mass/Vol] 0.7 ng/dL Low 0.9 - 1.7 ng/dL [facility] T4 Free SerPl-mCncon 025 Free T4 [Mass/Vol] 0.7 ng/dL Low 0.9-1.7 [facility] Comment on above: Order Comment: Speci men Type: BLOOD SPECIMEN Ordering Facility: [facility] Address: [address] [place] [address] Performed By: #### 3 024-7, 3053-6, 3016-3 #### [facility] CLIA [id number] [address] [place], [place] [address] [address] [place] THYROID STIMULATING HORMONEo n 08-22-2024 TSH Qn 2.58 m[IU]/L [facility] Comment on above: If the patient [...] Lopez, et al. 2017 Guidelines of the [place] Thyroid Association for the Diagnosis and Management of Thyroid Disease during and the . Thyroid, 2017:27:3:315-389. TSH Qnon 08-22-2024 Interpretation and review of laboratory results Normal [facility] TSH SerPl-aCncon 08-22-2024 TSH Qn 2.580 m[IU]/L Normal 0.270-4.200 [facility] Comment on above: Order Comment: Speci men Type: BLOOD SPECIMEN Ordering Facility: [facility] Address: [address] [place] [address] Result Comment: If t he patient is , TSH reference range varies by gestational period: First Trimester (weeks 9-12): 0.180-2.990 mIU/L Second Trimester: 0.110-3.980 mIU/L Third Trimester: 0.480-4.710 mIU/L Homer Caputo et al. A Practical Approach for the Verifications and Determination of Site- and Trimester-Specific Reference Intervals for Thyroid Function tests in . Thyroid, 2019:29:3:412-420. Moose Lopez et al. 2017 Guidelines of the [place] Thyroid Association for the Diagnosis and Management of Thyroid Disease during and the . Thyroid, 2017:27:3:315-389. Performed By: #### 3 024-7, 3053-6, 3016-3 #### [facility] CLIA [id number] [address] [place] [address] [place] [address] [place] Examination level ultrasound [...] 6 oz EFW by: Hadlock (HC-AC-FL) Extended Insurance Examiner 4.7 mm Extremities / Bony Struc FL / HC 0.17 70% Hadlock Other Structures FHR 161 bpm Anatomy Cranium: normal Lateral ventricles: normal Choroid plexus: normal Midline falx: normal Cerebellum: normal Cisterna magna: normal Lips: normal 4-chamber view: normal RVOT view: suboptimally visualized LVOT view: normal 3-vessel view: normal 8-msgeld-jkvbpqv view: normal Heart / Thorax Diaphragm: normal [...] Read By: Berto Whitley M.D. MATERNAL MEDICINE [facility] Radiology Study observation (narrative) [facility] CNPNon 07-04-2024 CNPN Telephone (OBGYWM) NENA LEIVA ([id number]) 1990 F Date Time Provider Department 07/04/24 [...] 10:02 AM Signed Early anatomy ultrasound scheduled. [employer] message sent to patient. Juliana Huston RN [...] unspecified obesity type (HCC) [O99.212] Order(s):OBSTETRIC ULTRASOUND [facility] [[id number]] Order #: [id number]: 1 FUTURE Prescriptions as of 07/08/2024 - thyroid (SECOND BALLER THYROID) 120 mg tablet Take 1 tablet [...] Status:Closed by JULIANA HUSTON on 07/08/24 Normal [facility] T4 Free SerPl-mCncon 025 Free T4 [Mass/Vol] 0.7 ng/dL Low 0.9-1.7 [facility] Comment on above: Order Comment: Speci men Type: BLOOD SPECIMEN Ordering Facility: [facility] Address: [address] [place] [address] Performed By: #### 3 024-7, 3053-6, 3016-3 #### [facility] CLIA [id number] [address] [place], [place] [address] [place] [address] [place] TSH SerPl-aCncon 07-04-2024 TSH Qn 3.350 m[IU]/L Normal 0.270-4.200 [facility] Comment on above: Order Comment: Speci men Type: BLOOD SPECIMEN Ordering Facility: [facility] Address: [address] [place] [address] Result Comment: If t he patient is , TSH reference range varies by gestational period: First Trimester (weeks 9-12): 0.180-2.990 mIU/L Second Trimester: 0.110-3.980 mIU/L Third Trimester: 0.480-4.710 mIU/L Homer Caputo et al. A Practical Approach for the Verifications and Determination of Site- and Trimester-Specific Reference Intervals for Thyroid Function tests in . Thyroid, 2019:29:3:412-420. Moose Lopez, et al. 2017 Guidelines of the [place] Thyroid Association for the Diagnosis and Management of Thyroid Disease during and the . Thyroid, 2017:27:3:315-389. Performed By: #### 3 024-7, 3053-6, 3016-3 #### [facility] CLIA [id number] [address] [place] [address] [place] CBC W Auto Differential pane l (Bld)on 06-12-2024 Basophils (Bld) [#/Vol] 0.05 10*3/uL Normal <0.11 [facility] Comment on above: Order Comment: Speci men Type: BLOOD SPECIMEN Ordering Facility: [facility] Address: [address] [place] [address] Performed By: #### 7 3752-8, 5195-3, 44708-4 #### [facility] CLIA [id number] [address] [place] [address] [place] Basophils/100 WBC (Bld) 0.6 % Normal [facility] Comment on above: Order Comment: Speci men Type: BLOOD SPECIMEN Ordering Facility: [facility] Address: [address] [place] [address] Performed By: #### 7 3752-8, 5195-3, 33191-2 #### [facility] CLIA [id number] [address] [place] [address] [place] Differential cell count method Nom (Bld) Auto Normal [facility] Comment on above: Order Comment: Speci men Type: BLOOD SPECIMEN Ordering Facility: [facility] Address: [address] [place] [address] Performed By: #### 7 3752-8, 5195-3, 09244-9 #### [facility] CLIA [id number] [address] [place] [address] [place] Eosinophils (Bld) [#/Vol] 0.32 10*3/uL Normal <0.46 [facility] Comment on above: Order Comment: Speci men Type: BLOOD SPECIMEN Ordering Facility: [facility] Address: [address] [place] [address] Performed By: #### 7 3752-8, 5195-3, 25385-8 #### [facility] CLIA [id number] [address] [place] [address] [place] Eosinophils/100 WBC (Bld) 3.6 % Normal [facility] Comment on above: Order Comment: Speci men Type: BLOOD SPECIMEN Ordering Facility: [facility] Address: [address] [place] [address] Performed By: #### 7 3752-8, 5195-3, 36416-6 #### [facility] CLIA [id number] [address] [place] [address] [place] Erythrocyte distribution width (RBC) [Ratio] 12.8 % Normal 11.5-15.0 [facility] Comment on above: Order Comment: Speci men Type: BLOOD SPECIMEN Ordering Facility: [facility] Address: [address] [place] [address] Performed By: #### 7 3752-8, 5195-3, 10600-1 #### [facility] CLIA [id number] [address] [place] [address] [place] Hematocrit (Bld) [Volume fraction] 40.1 % Normal 36.0-46.0 [facility] Comment on above: Order Comment: Speci men Type: BLOOD SPECIMEN Ordering Facility: [facility] Address: [address] [place] [address] Performed By: #### 7 3752-8, 5195-3, 27381-0 #### [facility] CLIA [id number] [address] [place] [address] [place] Hemoglobin (Bld) [Mass/Vol] 13.5 g/dL Normal 11.5-15.5 [facility] Comment on above: Order Comment: Speci men Type: BLOOD SPECIMEN Ordering Facility: [facility] Address: [address] [place] [address] Performed By: #### 7 3752-8, 5195-3, 58444-2 #### [facility] CLIA [id number] [address] [place] [address] [place] Immature granulocytes (Bld) [#/Vol] 0.05 10*3/uL Normal <0.10 [facility] Comment on above: Order Comment: Speci men Type: BLOOD SPECIMEN Ordering Facility: [facility] Address: [address] [place] [address] Performed By: #### 7 3752-8, 5195-3, 54917-0 #### [facility] CLIA [id number] [address] [place] [address] [place] Immature granulocytes/100 WBC (Bld) 0.6 % Normal [facility] Comment on above: Order Comment: Speci men Type: BLOOD SPECIMEN Ordering Facility: [facility] Address: [address] [place] [address] Performed By: #### 7 3752-8, 5195-3, 00799-3 #### [facility] CLIA [id number] [address] [place] [address] [place] Lymphocytes (Bld) [#/Vol] 2.44 10*3/uL Normal 1.00-4.00 [facility] Comment on above: Order Comment: Speci men Type: BLOOD SPECIMEN Ordering Facility: [facility] Address: [address] [place] [address] Performed By: #### 7 3752-8, 5195-3, 63655-1 #### [facility] CLIA [id number] [address] [place] [address] [place] Lymphocytes/100 WBC (Bld) 27.4 % Normal [facility] Comment on above: Order Comment: Speci men Type: BLOOD SPECIMEN Ordering Facility: [facility] Address: [address] [place] [address] Performed By: #### 7 3752-8, 5-3, 86073-1 #### [facility] CLIA [id number] [address] [place] [address] [place] MCH (RBC) [Entitic mass] 27.7 pg Normal 26.0-34.0 [facility] Comment on above: Order Comment: Speci men Type: BLOOD SPECIMEN Ordering Facility: [facility] Address: [address] [place] [address] Performed By: #### 7 3752-8, 5195-3, 44698-3 #### [facility] CLIA [id number] [address] [place] [address] [place] MCHC (RBC) [Mass/Vol] 33.7 g/dL Normal 30.5-36.0 [facility] Comment on above: Order Comment: Speci men Type: BLOOD SPECIMEN Ordering Facility: [facility] Address: [address] [place] [address] Performed By: #### 7 3752-8, 5195-3, 30917-9 #### [facility] CLIA [id number] [address] [place] [address] [place] MCV (RBC) [Entitic vol] 82.3 fL Normal 80.0-100.0 [facility] Comment on above: Order Comment: Speci men Type: BLOOD SPECIMEN Ordering Facility: [facility] Address: [address] [place] [address] Performed By: #### 7 3752-8, 5-3, 80815-9 #### [facility] CLIA [id number] [address] [place] [address] [place] Monocytes (Bld) [#/Vol] 0.54 10*3/uL Normal <0.87 [facility] Comment on above: Order Comment: Speci men Type: BLOOD SPECIMEN Ordering Facility: [facility] Address: [address] [place] [address] Performed By: #### 7 3752-8, 3, 42398-7 #### [facility] CLIA [id number] [address] [place] [address] [place] Monocytes/100 WBC (Bld) 6.1 % Normal [facility] Comment on above: Order Comment: Speci men Type: BLOOD SPECIMEN Ordering Facility: [facility] Address: [address] [place] [address] Performed By: #### 7 3752-8, 3, 86930-3 #### [facility] CLIA [id number] [address] [place] [address] [place] Neutrophils (Bld) [#/Vol] 5.52 10*3/uL Normal 1.45-7.50 [facility] Comment on above: Order Comment: Speci men Type: BLOOD SPECIMEN Ordering Facility: [facility] Address: [address] [place] [address] Performed By: #### 7 3752-8, 3, 46776-8 #### [facility] CLIA [id number] [address] [place] [address] [place] Neutrophils/100 WBC (Bld) 61.7 % Normal [facility] Comment on above: Order Comment: Speci men Type: BLOOD SPECIMEN Ordering Facility: [facility] Address: [address] [place] [address] Performed By: #### 7 3752-8, 3, 74445-4 #### [facility] CLIA [id number] [address] [place] [address] [place] Nucleated RBC (Bld) [#/Vol] 10*3/uL Normal <0.01 [facility] Comment on above: Order Comment: Speci men Type: BLOOD SPECIMEN Ordering Facility: [facility] Address: [address] [place] [address] Performed By: #### 7 3752-8, 5195-3, 72406-7 #### [facility] CLIA [id number] [address] [place] [address] [place] Nucleated RBC/100 WBC (Bld) [Ratio] 0.0 /100 WBC Normal [facility] Comment on above: Order Comment: Speci men Type: BLOOD SPECIMEN Ordering Facility: [facility] Address: [address] [place] [address] Performed By: #### 7 3752-8, 5195-3, 67250-1 #### [facility] CLIA [id number] [address] [place] [address] [place] Platelet mean volume (Bld) [Entitic vol] 9.1 fL Normal 9.0-12.7 [facility] Comment on above: Order Comment: Speci men Type: BLOOD SPECIMEN Ordering Facility: [facility] Address: [address] [place] [address] Performed By: #### 7 3752-8, 5195-3, 26306-1 #### [facility] CLIA [id number] [address] [place] [address] [place] Platelets (Bld) [#/Vol] 240 10*3/uL Normal 150-400 [facility] Comment on above: Order Comment: Speci men Type: BLOOD SPECIMEN Ordering Facility: [facility] Address: [address] [place] [address] Performed By: #### 7 3752-8, 5195-3, 55390-3 #### [facility] CLIA [id number] [address] [place] [address] [place] RBC (Bld) [#/Vol] 4.87 10*6/uL Normal 3.90-5.20 [facility] Comment on above: Order Comment: Speci men Type: BLOOD SPECIMEN Ordering Facility: [facility] Address: [address] [place] [address] Performed By: #### 7 3752-8, 5195-3, 83536-7 #### [facility] CLIA [id number] [address] [place] [address] [place] WBC (Bld) [#/Vol] 8.92 10*3/uL Normal 3.70-11.00 [facility] Comment on above: Order Comment: Speci men Type: BLOOD SPECIMEN Ordering Facility: [facility] Address: [address] [place] [address] Performed By: #### 7 3752-8, 5195-3, 05770-7 #### [facility] CLIA [id number] [address] [place] [address] [place] HBV surface Ag Ser Qlon 05-0 HBV surface Ag Ql (S) Negative Normal Negative [facility] Comment on above: Order Comment: Speci men Type: BLOOD SPECIMEN Ordering Facility: [facility] Address: [address] [place] [address] Performed By: #### 7 3752-8, 5195-3, 30203-9 #### [facility] CLIA [id number] [address] [place] [address] [place] HCV Ab Ser Qlon 06-12-2024 HCV Ab Ql (S) Negative Normal Negative [facility] Comment on above: Order Comment: Speci men Type: BLOOD SPECIMEN Ordering Facility: [facility] Address: [address] [place] [address] Result Comment: The result suggests no evidence of infection with Hepatitis C virus. Should recent infection be suspected, repeat testing may be considered 4-6 weeks after this draw. Performed By: #### 3 024-7, 3053-6, 3016-3 #### [facility] CLIA [id number] [address] [place] [address] [place] HIV 1+2 Ab IA Qlon 5 HIV 1 and 2 Ab IA.rapid Nom (S/P/Bld) Normal [facility] Comment on above: Order Comment: Speci men Type: BLOOD SPECIMEN Ordering Facility: [facility] Address: [address] [place] [address] Result Comment: Test not indicated. Performed By: #### 7 3752-8, 5195-3, 58490-9 #### [facility] CLIA [id number] [address] [place] [address] [place] HIV 1+2 Ab+HIV1 p24 Ag IA Ql Non-Reactive Normal Nonreactive [facility] Comment on above: Order Comment: Speci men Type: BLOOD SPECIMEN Ordering Facility: [facility] Address: [address] [place] [address] Performed By: #### 7 3752-8, 5195-3, 62777-1 #### [facility] CLIA [id number] [address] [place] [address] [place] HIV immunoassay testing algorithm interpretation (S/P/Bld) [Interp] Normal [facility] Comment on above: Order Comment: Speci men Type: BLOOD SPECIMEN Ordering Facility: [facility] Address: [address] [place] [address] Result Comment: No e vidence of HIV-1 or HIV-2 infection. Should recent infection be suspected, repeat testing may be considered 2-3 weeks after this draw. [place] Rev. Code 3701.243(E): This information has been [...] diagnoses. Performed By: #### 7 3752-8, 5195-3, 68639-1 #### [facility] CLIA [id number] [address] [place] [address] [place] HbA1c (Bld)on 06-12-2024 Average glucose Estimated from glycated hemoglobin (Bld) [Mass/Vol] 94 mg/dL Normal [facility] Comment on above: Order Comment: Speci men Type: BLOOD SPECIMEN Ordering Facility: [facility] Address: [address] [place] [address] Result Comment: eAG: (Estimated average glucose) is a calculated value from HgbA1c and is special service representative of the average blood glucose level in the last 2-3 month period. Performed By: #### 3 024-7, 3053-6, 6-3 #### [facility] CLIA [id number] [address] [place] [address] [place] HbA1c (Bld) [Mass fraction] 4.9 % Normal 4.3-5.6 [facility] Comment on above: Order Comment: Speci men Type: BLOOD SPECIMEN Ordering Facility: [facility] Address: [address] [place] [address] Result Comment: Amer ican Diabetes Association guidelines indicate that patients with HgbA1c in the range 5.7-6.4% are at increased risk for development of diabetes, and intervention by lifestyle modification may be beneficial. HgbA1c greater or equal to 6.5% is considered diagnostic of diabetes. Performed By: #### 3 024-7, 3053-6, 3016-3 #### [facility] CLIA [id number] [address] [place] [address] [place] [id number] PLUSon 06-12-2024 Cell-free DNA./Cell-free DNA.total Dosage of chromosome-specific cfDNA (cfDNA) [Molar fraction] 12% Normal [facility] Comment on above: Order Comment: Speci men Type: BLOOD SPECIMENOrdering Facility: [facility] Address: [address] [place], [place] [address] Performed By: #### M AT21 ####[facility] LABCLIA [id number] [place] [address] Chr 13+18+21+X+Y aneuploidy Dosage of chromosome-specific cfDNA Ql (cfDNA) Negative Normal [facility] Comment on above: Order Comment: Speci men Type: BLOOD SPECIMENOrdering Facility: [facility] Address: [address] [place] [address] Performed By: #### M AT21 ####[facility] LABCLIA [id number] [place] [address] Chr 21 trisomy Dosage of chromosome-specific cfDNA Ql (cfDNA) Negative Normal [facility] Comment on above: Order Comment: Speci men Type: BLOOD SPECIMENOrdering Facility: [facility] Address: [address] [place] [address] Performed By: #### M AT21 ####[facility] LABCLIA [id number] [place] [address] Chr X and Y aneuploidy risk Sequencing Ql (cfDNA) [Interp] Not detected Normal [facility] Comment on above: Order Comment: Speci men Type: BLOOD SPECIMENOrdering Facility: [facility] Address: [address] [place] [address] Result Comment: Not Detected Not Detected Performed By: #### M AT21 ####[facility] LABCLIA [id number] [place] [address] Citation Isaiah (Reference lab test) Comment Normal [facility] Comment on above: Order Comment: Speci men Type: BLOOD SPECIMENOrdering Facility: [facility] Address: [address] [place] [address] Result Comment: 1. P june CLIFFORD, et al. Daniela Med. 2012;14(3):296-305. 2. Barb SANZ et al. Prenat Diag. 2013;33(6):591-597. 3. Jesús C, et al. Clin Chem. 2015 Apr;61(4):608-616. 4. Onesimo CLIFFORD et al. Daniela Med. 2011;13(11):913-920. 5. ACOG/SMFM Practice Bulletin No. 226, Nov 2019. Performed By: #### M AT21 ####[facility] LABCLIA [id number] [place] [address] Gestational age Estimated from conception date Davies Normal [facility] Comment on above: Order Comment: Speci men Type: BLOOD SPECIMENOrdering Facility: [facility] Address: [address] [place] [address] Performed By: #### M AT21 ####[facility] LABCLIA [id number] [place] [id number] GESTATIONALAGE AGE > OR = 9W Yes Normal [facility] Comment on above: Order Comment: Speci men Type: BLOOD SPECIMENOrdering Facility: [facility] Address: [address] [place] [address] Performed By: #### M AT21 ####[facility] LABCLIA [id number] [place] [phone] Laboratory comment Isaiah (Report) Comment Normal [facility] Comment on above: Order Comment: Speci jillian Type: BLOOD SPECIMENOrdering Facility: [facility] Address: [address] [place] [address] Result Comment: The MaterniT(R) 21 PLUS laboratory-developed test (LDT) analyzes circulating cell-free DNA from a maternal blood sample. This test is used for screening purposes and not diagnostic. Clinical correlation is recommended. Validation data on twin pregnancies is limited and the ability of this test to detect aneuploidy in higher multiple gestations has not yet been validated. Performed By: #### M AT21 ####[facility] LABCLIA [id number] [place] [phone] distributor of directories name Nom (Provider) Comment Normal [facility] Comment on above: Order Comment: Speci men Type: BLOOD SPECIMENOrdering Facility: [facility] Address: [address] [place] [address] Result Comment: This specimen showed an expected representation of chromosome 21, 18 and 13 material. Clinical correlation is suggested. Comment Moe Nagy MD, PhD, Director, [employer] Performed By: #### M AT21 ####[facility] LABCLIA [id number] [place] [address] LIMITATIONS OF THE TEST Comment Normal [facility] Comment on above: Order Comment: Speci men Type: BLOOD SPECIMENOrdering Facility: [facility] Address: [facility][note 3] [place] [address] Result Comment: Monik lopez the results of [...] and Fragmin(R)). Performed By: #### M AT21 ####[facility] [id number] [place] [phone] Monosomy X risk Dosage of chromosome-specific cfDNA Ql (Plasma cell-free+WBC DNA) [Interp] Not detected Normal [facility] Comment on above: Order Comment: Selam walsh Type: BLOOD SPECIMENOrdering Facility: [facility] Address: [address] [place] [address] Performed By: #### M AT21 ####[facility] MediaIA [id number] [place] [phone] NEGATIVE PREDICTIVE VALUE Note Normal [facility] Comment on above: Order Comment: Selam walsh Type: BLOOD SPECIMENOrdering Facility: [facility] Address: [address] [place] [address] Result Comment: The Negative Predictive Value (NPV) for trisomy 21, 18, and 13 is greater than 99%. The NPV for SCA and ESS cannot be calculated as SCA and ESS are only reported when an abnormality is detected. Performed By: #### M AT21 ####[employer] [facility]Miso MediaIA [id number] [place] [address] PERFORMANCE CHARACTERISTICS Note Normal [facility] Comment on above: Order Comment: Selam walsh Type: BLOOD SPECIMENOrdering Facility: [facility] Address: [address] [place] [address] Result Comment: ! Sex ! Accuracy: 99.4% [...] ! ! ! * As reported in [facility] database nstd37 [https://www.ncbi.nlm.nih.gov/dbvar/studies/nstd37/ ] # [...] gestation only. Performed By: #### M AT21 ####[facility] LABCLIA [id number] [place] [address] POSITIVE PREDICTIVE VALUE N/A Normal [facility] Comment on above: Order Comment: Speci men Type: BLOOD SPECIMENOrdering Facility: [facility] Address: [address] [place] [address] Performed By: #### M AT21 ####[facility] LABCLIA [id number] [place] [address] Reference Lab Test Method Comment Normal [facility] Comment on above: Order Comment: Speci men Type: BLOOD SPECIMENOrdering Facility: [facility] Address: [address] [place] [address] Result Comment: See Notes Circulating cell-free DNA [...] and 22. Performed By: #### M AT21 ####[facility] LABCLIA [id number] [place] [address] Service comment (Unsp spec) [Interp] Comment Normal [facility] Comment on above: Order Comment: Speci men Type: BLOOD SPECIMENOrdering Facility: [facility] Address: [address] [place] [address] Result Comment: See Notes [employer] is a subsidiary of [email or web address], using the brand [employer]. This test was developed and its performance characteristics determined by [employer]. It has not been cleared or approved by the Food and Drug Administration. This laboratory is certified under the Clinical Laboratory Improvement Amendments (CLIA) as qualified to perform high complexity clinical laboratory testing and accredited by the [employer] (CAP). If there is future clinical need for adding MaterniT GENOME testing, this specimen will be available until term. [facility] samples will not be retained beyond 60 days. [facility] patients will have to send a new sample for re-sequencing ([facility] Test Code: [id number]). Performed By: #### M AT21 ####[employer] LABCLIA [id number] [place] [address] Sex Dosage of chromosome-specific cfDNA Nom (cfDNA) Comment Normal [facility] Comment on above: Order Comment: Speci men Type: BLOOD SPECIMENOrdering Facility: [facility] Address: [address] [place] [address] Result Comment: Cons istent with Female Performed By: #### M AT21 ####[employer] [facility]Miso MediaIA [id number] [place] [address] Test performance information Isaiah (Unsp spec) Comment Normal [facility] Comment on above: Order Comment: Speci men Type: BLOOD SPECIMENOrdering Facility: [facility] Address: [address] [place] [address] Result Comment: The performance characteristics of the MaterniT(R) 21 PLUS laboratory-developed test (LDT) have been determined in a clinical validation study with women at increased risk for chromosomal aneuploidy.[1-4] Performed By: #### M AT21 ####[facility] LABCLIA [id number] [place] [address] Trisomy 13 risk Dosage of chromosome-specific cfDNA Ql (cfDNA) [Interp] Negative Normal [facility] Comment on above: Order Comment: Speci men Type: BLOOD SPECIMENOrdering Facility: [facility] Address: [address] [place] [address] Performed By: #### M AT21 ####[facility] LABCLIA [id number] [place] [address] Trisomy 18 risk Dosage of chromosome-specific cfDNA Ql (Plasma cell-free+WBC DNA) [Interp] Negative Normal [facility] Comment on above: Order Comment: Speci jillian Type: BLOOD SPECIMENOrdering Facility: [facility] Address: [address] [place] [address] Performed By: #### M AT21 ####[facility] LABCLIA [id number] [place] [address] RUBELLA IGG ANTIBODYon 06-12 RUBELLA IGG AB, QUAL Positive Normal Positive [facility] Comment on above: Order Comment: Speci men Type: BLOOD SPECIMEN Ordering Facility: [facility] Address: [address] [place] [address] Result Comment: The result suggests recent or past exposure to Rubella virus or history of Rubella vaccination. Positive result may also be seen due to presence of passively-transferred antibodies. Please correlate with patient's history. Performed By: #### 7 3752-8, 5195-3, 09772-9 #### [facility] CLIA [id number] [address] [place] [address] [place] Reagin and Treponema pallidu m IgG and IgM [Interp]on 06-12-2024 T. pallidum IgG+IgM IA Ql (S) Non-Reactive Normal Nonreactive [facility] Comment on above: Order Comment: Speci [facility] Type: BLOOD SPECIMEN Ordering Facility: [facility] Address: [address] [place] [address] Performed By: #### 7 3752-8, 5195-3, 72558-0 #### [facility] CLIA [id number] [address] [place] [address] [place] Reagin+T pallidum IgG+IgM Se rPl-Impon 06-12-2024 Reagin and Treponema pallidum IgG and IgM [Interp] Cannot exclude recent Treponemal infection if specimen collected within 7-10 days after appearance of suspect lesions or 2-3 weeks after an exposure. Clinical correlation is required. Normal [facility] Comment on above: Order Comment: Speci men Type: BLOOD SPECIMEN Ordering Facility: [facility] Address: [address] [place] [address] Performed By: #### 7 3752-8, 5195-3, 95628-5 #### [facility] CLIA [id number] [address] [place] [address] OF [place] TYPE + SCREEN PRENATALon ABO A Normal [facility] Comment on above: Order Comment: Speci men Type: BLOOD SPECIMEN Ordering Facility: [facility] Address: [address] [place] [address] Performed By: #### 7 3752-8, 5195-3, 78529-3 #### [facility] CLIA [id number] [address] [place] [address] OF [place] Rh Nom (Bld) Negative Normal [facility] Comment on above: Order Comment: Speci men Type: BLOOD SPECIMEN Ordering Facility: [facility] Address: [address] [place] [address] Performed By: #### 7 3752-8, 5195-3, 00039-2 #### [facility] CLIA [id number] [address] [place] [address] TYPE AND SCREEN EXPIRATION 06/15/2024 23:59 Normal [facility] Comment on above: Order Comment: Speci men Type: BLOOD SPECIMEN Ordering Facility: [facility] Address: [address] [place] [address] Performed By: #### 7 3752-8, 5195-3, 04050-3 #### [facility] CLIA [id number] [address] [place] [address] OF [place] CNPRaysa 05-24-2024 CNPN Telephone (FAMPWS) TEJALNENA ARGUELLO ([id number]) 1990 F Date Time Provider Department 05/24/24 [...] Requested Prescriptions Signed Prescriptions Disp Refills thyroid (SECOND BALLER THYROID) 120 mg tablet 140 tablet 3 Sig: Take 1 tablet PO 5 days a week and 2 tablets PO 2 days a week Authorizing Provider: MIGUELITO CHAMPION DO Rowland, Kathryn, [place] 05/26/2024 9:44 AM Signed Pt notified of results via [employer]. Glo Smith Ma Allergies As of Date: 05/24/2024 Noted Allergy Reaction BEES 07/07/2008 7 - Swelling LATEX 07/07/2008 4 - Hives Date Reviewed: 05/23/2024 Reviewed by: Almita Sawyer LPN - Fully Assessed Reason for Visit: Results [95] Cmt: Primary Visit Diagnosis:Hypothyroidi sm, acquired [E03.9] Order(s):thyroid (SECOND BALLER THYROID) 120 mg tabletTake 1 tablet PO 5 days a week and 2 tablets PO 2 days a weekDisp: 140 tabletRfl: 3 THYROID STIMULATING HORMONE [SQTSH] Order #: [id number] FUTURE T4 FREE/FREE THYROXINE [SQFT4] Order #: [id number] FUTURE Prescriptions as of 05/26/2024 - thyroid (SECOND BALLER THYROID) 120 mg tablet Take 1 tablet [...] Medications Discontinued During This Encounter Prescriptions - SECOND BALLER THYROID 60 mg tablet (Discontinued) TAKE 2 TABLETS BY MOUTH EVERY DAY Encounter Status:Closed by GLO SMITH on 05/26/24 Normal [facility] Bacteria Ur Culton 5 Bacteria identified Cx Nom (U) ORGANISM ID: 1 >=100,000 CFU/ml Normal urogenital trina Normal [facility] Comment on above: Performed By: #### 7 3752-8, 5195-3, 21390-2 #### [facility] CLIA [id number] [address] [place] [address] [place] [address] [place] C. trachomatis+N. gonorrhoea e DNA SAMSON+probe Ql (Unsp spec)on 05-23-2024 C. trachomatis rRNA SAMSON+probe Ql (Unsp spec) Not detected Normal Not detected [facility] Comment on above: Order Comment: Speci men Type: BLOOD SPECIMEN [facility]ing Facility: [facility] Address: [address] [place] [address] Performed By: #### 3 024-7, 3053-6, 3016-3 #### [facility] CLIA [id number] [address] [place] [address] [place] N. gonorrhoeae rRNA SAMSON+probe Ql (Unsp spec) Not detected Normal Not detected [facility] Comment on above: Order Comment: Speci men Type: BLOOD SPECIMEN Ordering Facility: [facility] Address: [address] [place] [address] Performed By: #### 3 024-7, 3053-6, 3016-3 #### [facility] CLIA [id number] [address] [place] [address] [place] HIGH RISK HUMAN PAPILLOMA BIB (HPV), PCR FOR DETECTION AND GENOTYPINGon 05-23-2024 HPV 16 Ag Ql (Unsp spec) Not detected Normal Not detected [facility] Comment on above: Order Comment: Speci men Type: FLUID SPECIMENOrdering Facility: [facility] Address: [address] [place] [address] Performed By: #### H PVHRT ####[facility] [id number] [place] [address] [place] HPV 18 Ag Ql (Unsp spec) Not detected Normal Not detected [facility] Comment on above: Order Comment: Speci men Type: FLUID SPECIMENOrdering Facility: [facility] Address: [address] [place] [address] Performed By: #### H PVHRT ####[facility] [id number] [place] [address] [place] HPV 31+33+35+39+45+51+52 +56+58+59+66+68 DNA SAMSON+probe Ql (Cvx) Not detected Normal Not detected [facility] Comment on above: Order Comment: Speci men Type: FLUID SPECIMENOrdering Facility: [facility] Address: [address] [place] [address] Result Comment: High Risk HPV Other Type includes HPV types 31, 33, 35, 39, 45, 51, 52, 56, 58, 59, 66 and 68. Performed By: #### H PVHRT ####[facility] LAB[facility]IA [id number] [place] [address] [place] PAP TESTon 05-23-2024 ADEQUACY Normal [facility] Comment on above: Order Comment: Speci men Type: BLOOD SPECIMEN [facility]ing Facility: [facility] Address: [address] [place] [address] Result Comment: Sati sfactory for interpretation. Transformation zone present Performed By: #### 7 3752-8, 5194-3, 87055-7 #### [facility] CLIA [id number] [address] [place] [address] [place] CASE REPORT Normal [facility] Comment on above: Order Comment: Speci men Type: BLOOD SPECIMEN Ordering Facility: [facility] Address: [address] [place] [address] Result Comment: Gyne cologic Cytology Report Case: [id number] Authorizing Provider: Shiloh Westfall APRN.STATISTICAL PROGRAMMER ANALYST Collected: 05/23/2024 09:08 AM Ordering Location: OB/Gynecology Received: 05/23/2024 12:22 PM First Screen: Gmitro, Darryl, CT, ASCP Specimen: Pap Test, ThinPrep, Cervix Performed By: #### 7 3752-8, 5194-3, 70224-7 #### [facility] CLIA [id number] [address] [place], [place] [id number] [place] CLINICAL HISTORY, CYTOLOGY, CHARGE AIDE Routine Exam Normal [facility] Comment on above: Order Comment: Speci men Type: BLOOD SPECIMEN Ordering Facility: [facility] Address: [address] [place] [address] Performed By: #### 7 3752-8, 5195-3, 82219-9 #### [facility] CLIA [id number] [address] [place] [address] [place] FINAL PERFORMING LAB Normal [facility] Comment on above: Order Comment: Speci men Type: BLOOD SPECIMEN Ordering Facility: [facility] Address: [address] [place] [address] Result Comment: Tech nical component, channel marketing program manager screening performed at [facility], [address] [place] [address] CLIA# [id number] Diagnostic interpretation performed at [facility], [address] [place] [address] CLIA# [id number] Felt Puller: Bassam Dawn M.D. Performed By: #### 7 3752-8, 5195-3, 58244-9 #### [facility] CLIA [id number] [address] [place] [address] [place] INTERPRETATION, CYTOLOGY, CHARGE AIDE Normal [facility] Comment on above: Order Comment: Speci men Type: BLOOD SPECIMEN Ordering Facility: [facility] Address: [address] [place] [address] Result Comment: Nega tive for intraepithelial lesion or malignancy. at 1427 EDT Performed By: #### 7 3752-8, 5-3, 43176-0 #### [facility] CLIA [id number] [address] [place], [place] [id number] [place] LMP 04/02/2024 Normal [facility] Comment on above: Order Comment: Speci men Type: BLOOD SPECIMEN Ordering Facility: [facility] Address: [address] [place], [place] [id number] Performed By: #### 7 3752-8, 5-3, 13633-0 #### [facility] CLIA [id number] [address] [place], [place] [id number] [place] PAP DISCLAIMER COMMENT The Pap Smear is a screening test for cervical cancer. False negative results occur with all screening tests, emphasizing the need for rescreening at recommended intervals, and clinical correlation. Normal [facility] Comment on above: Order Comment: Speci men Type: BLOOD SPECIMEN Ordering Facility: [facility] Address: [address] [place] [address] Performed By: #### 7 3752-8, 5195-3, 08659-5 #### [facility] CLIA [id number] [address] [place] [address] [place] PAP COATING MIXER COMMENT This specimen has be en analyzed by the ThinPrep Imaging System, an automated imaging and review system, which assists the laboratory in evaluating cells on ThinPrep Pap tests. Following automated imaging, selected narvaez from every slide are reviewed by a channel marketing program manager. Normal [facility] Comment on above: Order Comment: Luis Antonioi jillian Type: BLOOD SPECIMEN Ordering Facility: [facility] Address: [address] [place] [address] Performed By: #### 7 3752-8, 5195-3, 86472-3 #### [facility] CLIA [id number] [address] [place] [address] [place] POC DIRECTOR OF SCIENCE ULTRASOUNDon 05-24-19 Indication Confirmation of intrauterine . [...] Read By: Shiloh Westfall CNP MATERNAL MEDICINE [facility] Radiology Study observation (narrative) [facility] T4 Free SerPl-mCncon 025 Free T4 [Mass/Vol] 0.9 ng/dL Normal 0.9-1.7 [facility] Comment on above: Order Comment: Speci men Type: BLOOD SPECIMEN Ordering Facility: [facility] Address: [address] [place] [address] Performed By: #### 7 3752-8, 5195-3, 38270-3 #### [facility] CLIA [id number] [address] [place] [address] [place] TRICHOMONAS VAGINALIS NAATon 05-23-2024 T. vaginalis DNA SAMSON+probe Ql (Unsp spec) Not detected Normal Not detected [facility] Comment on above: Order Comment: Speci men Type: BLOOD SPECIMEN Ordering Facility: [facility] Address: [address] [place] [address] Performed By: #### 3 024-7, 3053-6, 3016-3 #### [facility] CLIA [id number] [address] [place] [address] [place] TSH SerPl-aCncon 05-23-2024 TSH Qn 6.500 m[IU]/L High 0.270-4.200 [facility] Comment on above: Order Comment: Speci men Type: BLOOD SPECIMEN Ordering Facility: [facility] Address: [address] [place] [address] Result Comment: If t he patient is , TSH reference range varies by gestational period: First Trimester (weeks 9-12): 0.180-2.990 mIU/L Second Trimester: 0.110-3.980 mIU/L Third Trimester: 0.480-4.710 mIU/L Homer Caputo et al. A Practical Approach for the Verifications and Determination of Site- and Trimester-Specific Reference Intervals for Thyroid Function tests in . Thyroid, 2019:29:3:412-420. Moose E, et al. 2017 Guidelines of the [place] Thyroid Association for the Diagnosis and Management of Thyroid Disease during and the . Thyroid, 2017:27:3:315-389. Performed By: #### 7 3752-8, 5195-3, 18034-4 #### [facility] CLIA [id number] [address] [place] [address] CNPNon 05-05-2024 CNPN Telephone (OBGYWM) NENA LEIVA ([id number]) 1990 F Date Time Provider Department 05/05/24 [...] Assessed Reason for Visit: Question (OB Question) [3294] Prescriptions as of 05/05/2024 - tirzepatide (MOUNJARO) 10 mg/0.5 mL pen injector Inject 10 mg subcutaneously one time a week. - SECOND BALLER THYROID 60 mg tablet TAKE 2 TABLETS [...] Encounter Status:Closed by JULIANA HUSTON on 05/05/24 [facility] ([id number]) 1990 F Date Time Provider Department 05/05/24 [facility] visit today, we recorded [...] [E03.9] Order(s):THYROID STIMULATING HORMONE [SQTSH] Order #: [id number] FUTURE T4 FREE/FREE THYROXINE [SQFT4] Order #: [id number] FUTURE Prescriptions as of 05/05/2024 - tirzepatide (MOUNJARO) 10 mg/0.5 mL pen injector Inject 10 mg subcutaneously one time a week. - SECOND BALLER THYROID 60 mg tablet TAKE 2 TABLETS [...] by LISA LEÓN LPN on 05/05/24 Normal [facility] T3 SerPl-mCncon 04-04-2024 T3 [Mass/Vol] 72 ng/dL Low 79-165 [facility] Comment on above: Order Comment: Speci men Type: BLOOD SPECIMEN Ordering Facility: [facility] Address: [address] [place] [address] Performed By: #### 3 024-7, 305-6, 3015-3 #### [facility] CLIA [id number] [address] [place] [address] [place] T4 Free SerPl-mCncon 025 Free T4 [Mass/Vol] 0.9 ng/dL Normal 0.9-1.7 [facility] Comment on above: Order Comment: Selam walsh Type: BLOOD SPECIMEN Ordering Facility: [facility] Address: [address] [place] [address] Performed By: #### 3 024-7, 30504-17, 3 #### [facility] CLIA [id number] [address] [place] [address] [place] TSH SerPl-aCncon 04-04-2024 TSH Qn 2.590 m[IU]/L Normal 0.270-4.200 [facility] Comment on above: Order Comment: Selam walsh Type: BLOOD SPECIMEN Ordering Facility: [facility] Address: [address] [place] [address] Result Comment: If t he patient is , TSH reference range varies by gestational period: First Trimester (weeks 9-12): 0.180-2.990 mIU/L Second Trimester: 0.110-3.980 mIU/L Third Trimester: 0.480-4.710 mIU/L Homer Caputo et al. A Practical Approach for the Verifications and Determination of Site- and Trimester-Specific Reference Intervals for Thyroid Function tests in . Thyroid, 2019:29:3:412-420. Moose E, et al. 2017 Guidelines of the [place] Thyroid Association for the Diagnosis and Management of Thyroid Disease during and the . Thyroid, 2017:27:3:315-389. 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 Thank you for all you do! Miguelito Carpenter DO 03/18/2024 4:50 PM Signed I am not aware of any of this information with the [place] [facility] pharmacy Recommend that she calls and asks the pharmacy specifically any questions DO Natasha Skelton Susan LPN 03/19/2024 8:58 AM Signed Pt. informed via My Chart Allergies As of Date: 03/11/2024 Noted Allergy Reaction BEES 07/07/2008 7 - Swelling LATEX 07/07/2008 4 - Hives Date Reviewed: 07/20/2023 Reviewed by: Alyson Meza LPN - Fully Assessed Reason for Visit: Patient Question [9327] Prescriptions as of 03/19/2024 - tirzepatide (MOUNJARO) [...] - cetirizine (ZYRTEC) 10 mg tablet - SECOND BALLER THYROID 60 mg tablet TAKE 2 TABLETS [...] Status:Closed by LISA LEÓN LPN on 03/19/24 [facility] 02-14-2024 [facility] Telephone (COURTNEY) NENA LEIVA ([id number]) 1990 F Date Time Provider Department 02/14/24 KAREN AZAR During your visit today, we recorded the following information about you: Karen Azar APRN.[facility] 02/14/2024 3:25 PM Signed Please call [...] AM Signed Pt notified of results via [facility]. Gl[facility] [place] Ma Allergies As of Date: 02/14/2024 Noted Allergy Reaction BEES 07/07/2008 7 - Swelling LATEX 07/07/2008 4 - Hives Date Reviewed: 07/20/2023 Reviewed by: Alyson Meza LPN - Fully Assessed Reason for Visit: Results [95] Primary Visit Diagnosis:Acquired hypothyroidism [E03.9] Order(s):THYROID STIMULATING HORMONE [SQTSH] Order #: [id number] FUTURE T3 [SQT3] Order #: [id number] FUTURE T4 FREE/FREE THYROXINE [SQFT4] Order #: [id number] FUTURE Prescriptions as of 02/18/2024 - tirzepatide [...] - cetirizine (ZYRTEC) 10 mg tablet - SECOND BALLER THYROID 60 mg tablet TAKE 2 TABLETS [...] Status:Closed by GLO SMITH on 02/18/24 Normal [facility] T3 SerPl-mCncon 02-04-2024 T3 [Mass/Vol] 87 ng/dL Normal 79-165 [facility] Comment on above: Order Comment: Speci men Type: BLOOD SPECIMEN Ordering Facility: [facility] Address: [address] [place] [address] Performed By: #### 7 3752-8, 5195-3, 17470-8 #### [facility] CLIA [id number] [address] [place] [address] [place] T4 Free SerPl-mCncon 024 Free T4 [Mass/Vol] 1.0 ng/dL Normal 0.9-1.7 [facility] Comment on above: Order Comment: Speci men Type: BLOOD SPECIMEN Ordering Facility: [facility] Address: [address] [place] [address] Performed By: #### 7 3752-8, 5195-3, 32894-0 #### [facility] CLIA [id number] [address] [place] [address] [place] TSH SerPl-aCncon 02-04-2024 TSH Qn 4.880 m[IU]/L High 0.270-4.200 [facility] Comment on above: Order Comment: Speci men Type: BLOOD SPECIMEN Ordering Facility: [facility] Address: [address] [place] [address] Result Comment: If t he patient is , TSH reference range varies by gestational period: First Trimester (weeks 9-12): 0.180-2.990 mIU/L Second Trimester: 0.110-3.980 mIU/L Third Trimester: 0.480-4.710 mIU/L Homer Caputo et al. A Practical Approach for the Verifications and Determination of Site- and Trimester-Specific Reference Intervals for Thyroid Function tests in . Thyroid, 2019:29:3:412-420. Moose Lopez, et al. 2017 Guidelines of the [place] Thyroid Association for the Diagnosis and Management of Thyroid Disease during and the . Thyroid, 2017:27:3:315-389. Performed By: #### 7 3752-8, 5195-3, 99863-0 #### [facility] CLIA [id number] [address] [place] [address] [place] CBC W Auto Differential pane l (Bld)on 07-20-2023 Basophils (Bld) [#/Vol] 0.09 10*3/uL [facility] Basophils/100 WBC (Bld) 0.8 % [facility] Differential cell count method Nom (Bld) Auto [facility] Eosinophils (Bld) [#/Vol] 0.41 10*3/uL [facility] Eosinophils/100 WBC (Bld) 3.5 % [facility] Erythrocyte distribution width (RBC) [Ratio] 13.1 % 11.5 - 15.0 % [facility] Hematocrit (Bld) [Volume fraction] 46.6 % High 36.0 - 46.0 % [facility] Hemoglobin (Bld) [Mass/Vol] 15.0 g/dL 11.5 - 15.5 g/dL [facility] Immature granulocytes (Bld) [#/Vol] 0.03 10*3/uL [facility] Immature granulocytes/100 WBC (Bld) 0.3 % [facility] Interpretation and review of laboratory results Abnormal [facility] Lymphocytes (Bld) [#/Vol] 3.24 10*3/uL [facility] Lymphocytes/100 WBC (Bld) 27.4 % [facility] MCH (RBC) [Entitic mass] 26.5 pg 26.0 - 34.0 pg [facility] MCHC (RBC) [Mass/Vol] 32.2 g/dL 30.5 - 36.0 g/dL [facility] MCV (RBC) [Entitic vol] 82.5 fL 80.0 - 100.0 fL [facility] Monocytes (Bld) [#/Vol] 0.73 10*3/uL NINF [facility] Monocytes/100 WBC (Bld) 6.2 % [facility] Neutrophils (Bld) [#/Vol] 7.33 10*3/uL [facility] Neutrophils/100 WBC (Bld) 61.8 % [facility] Nucleated RBC (Bld) [#/Vol] NINF [facility] Nucleated RBC/100 WBC (Bld) [Ratio] 0.0 % /100 WBC [facility] Platelet mean volume (Bld) [Entitic vol] 10.0 fL 9.0 - 12.7 fL [facility] Platelets (Bld) [#/Vol] 329 10*3/uL [facility] RBC (Bld) [#/Vol] 5.65 10*6/uL High 3.90 - 5.2 0 m/uL [facility] WBC (Bld) [#/Vol] 11.83 10*3/uL High [facility] Comprehensive metabolic 2000 panelon 07-20-2023 Albumin [Mass/Vol] 4.8 g/dL 3.9 - 4.9 g/dL [facility] ALP [Catalytic activity/Vol] 82 U/L 34 - 123 U/L [facility] ALT [Catalytic activity/Vol] 13 U/L 7 - 38 U/L [facility] Anion gap [Moles/Vol] 15 mmol/L 8 - 15 mmol/L [facility] AST [Catalytic activity/Vol] 17 U/L 13 - 35 U/L [facility] Bilirubin [Mass/Vol] 0.6 mg/dL 0.2 - 1.3 mg/dL [facility] Calcium [Mass/Vol] 9.8 mg/dL 8.5 - 10. 2 mg/dL [facility] Chloride [Moles/Vol] 101 mmol/L 98 - 107 mmol/L [facility] CO2 [Moles/Vol] 22 mmol/L 22 - 30 mmol/L [facility] Creatinine [Mass/Vol] 0.94 mg/dL 0.58 - 0.96 mg/dL [facility] GFR/1.73 sq M.predicted among non-blacks MDRD (S/P/Bld) [Vol rate/Area] 82 mL/min/{1.73_m2} - PINF [facility] Comment on above: Estimated Glomerular Filtration [...] [Mass/Vol] 92 mg/dL 74 - 99 mg/dL [facility] Comment on above: The [place] Diabete s Association (ADA) provides guidance for [...] Standards of Medical Care in Diabetes 2016, [place] Diabetes Association. Diabetes Care. 2016.39(Suppl 1). Interpretation and review of laboratory results Normal [facility] Potassium [Moles/Vol] 4.7 mmol/L 3.7 - 5.1 mmol/L [facility] Protein [Mass/Vol] 7.6 g/dL 6.3 - 8.0 g/dL [facility] Sodium [Moles/Vol] 138 mmol/L 136 - 144 mmol/L [facility] Urea nitrogen [Mass/Vol] 14 mg/dL 7 - 21 mg/dL [facility] Free T3 [Mass/Vol]on 024 Interpretation and review of laboratory results Abnormal [facility] Free T4 [Mass/Vol]on 024 Interpretation and review of laboratory results Normal [facility] HbA1c (Bld)on 07-20-2023 Average glucose Estimated from glycated hemoglobin (Bld) [Mass/Vol] 94 mg/dL [facility] Comment on above: eAG: (Estimated aver age glucose) is a calculated value from HgbA1c and is special service representative of the average blood glucose level in the last 2-3 month period. HbA1c (Bld) [Mass fraction] 4.9 % 4.3 - 5.6 % [facility] Comment on above: [place] Diabetes As sociation guidelines indicate that patients with HgbA1c in the range 5.7-6.4% are at increased risk for development of diabetes, and intervention by lifestyle modification may be beneficial. HgbA1c greater or equal to 6.5% is considered diagnostic of diabetes. [facility] Lipid 1996 panelon 4 Cholesterol [Mass/Vol] 182 mg/dL NINF - 200 mg/dL [facility] Comment on above: <200 mg/dL, Desirabl e 200-239 mg/dL, Borderline high >239 mg/dL, High Cholesterol in HDL [Mass/Vol] 53 mg/dL 39 - PINF mg/dL [facility] Comment on above: 40-59 mg/dL, Accepta ble >59 mg/dL, High: Negative risk factor for coronary heart disease <40 mg/dL, Low: Positive risk factor for coronary heart disease Cholesterol in LDL [Mass/Vol] 117 mg/dL High NINF - 100 mg/dL [facility] Comment on above: <100 mg/dL, Optimal 100-129 mg/dL, Near optimal/above optimal 130-159 mg/dL, Borderline high 160-189 mg/dL, High >189 mg/dL, Very high Secondary prevention optimal LDL Cholesterol levels are recommended to be < 70 mg/dL Cholesterol in LDL/Cholesterol in HDL [Mass ratio] 2.21 {ratio} NINF - 2.54 [facility] Comment on above: Reference: 1. National Cholesterol Education Program ATP III Guideline At-A-Glance Quick Desk Reference: National Heart, Lung, and Blood [place]. National Institutes of Health. 2001: NIH Publication No. 01-3305. 2. An International Atherosclerosis Society position paper: global recommendations for the management of dyslipidemia: executive summary, Atherosclerosis. 2014: 232(2):410-413. Cholesterol in VLDL [Mass/Vol] 12 mg/dL NINF - 30 mg/dL [facility] Cholesterol non HDL [Mass/Vol] 129 mg/dL NINF - 130 mg/dL [facility] Comment on above: <130 mg/dL, Optimal 130-159 mg/dL, Near optimal/above optimal 160-189 mg/dL, Borderline high 190-219 mg/dL, High >219 mg/dL, Very high Secondary prevention optimal non HDL Cholesterol levels are recommended to be <100 mg/dL Cholesterol.total/Ch olesterol in HDL [Mass ratio] 3.43 {ratio} NINF - 5.10 [facility] Fasting Time 16 hrs [facility] Interpretation and review of laboratory results Abnormal [facility] Triglyceride [Mass/Vol] 61 mg/dL NINF - 150 mg/dL [facility] Comment on above: <150 mg/dL, Normal 150-199 mg/dL, Borderline high 200-499 mg/dL, High >499 mg/dL, Very high No Panel Informationon 07-19 [facility] T3, FREEon 07-20-2023 Free T3 [Mass/Vol] 6.2 pg/mL High 2.3 - 4.1 pg/mL [facility] T4 FREE/FREE THYROXINEon Free T4 [Mass/Vol] 1.1 ng/dL 0.9 - 1.7 ng/dL [facility] THYROID STIMULATING HORMONEo n 07-20-2023 TSH Qn 4.760 m[IU]/L High [facility] Comment on above: If the patient [...] Lopez, et al. 2017 Guidelines of the [place] Thyroid Association for the Diagnosis and Management of Thyroid Disease during and the . Thyroid, 2017:27:3:315-389. TSH Qnon 07-20-2023 Interpretation and review of laboratory results Abnormal [facility] CBC W Auto Differential pane l (Bld)on 09-22-2022 Basophils (Bld) [#/Vol] 0.05 10*3/uL <0.11 k/uL [facility] Basophils/100 WBC (Bld) 0.6 % [facility] Differential cell count method Nom (Bld) Auto [facility] Eosinophils (Bld) [#/Vol] 0.26 10*3/uL <0.46 k/uL [facility] Eosinophils/100 WBC (Bld) 3.1 % [facility] Erythrocyte distribution width (RBC) [Ratio] 12.8 % 11.5 - 15.0 % [facility] Hematocrit (Bld) [Volume fraction] 43.2 % 36.0 - 46.0 % [facility] Hemoglobin (Bld) [Mass/Vol] 14.1 g/dL 11.5 - 15.5 g/dL [facility] Immature granulocytes (Bld) [#/Vol] <0.10 k/uL [facility] Immature granulocytes/100 WBC (Bld) 0.2 % [facility] Lymphocytes (Bld) [#/Vol] 2.62 10*3/uL 1.00 - 4.00 k/uL [facility] Lymphocytes/100 WBC (Bld) 31.3 % [facility] MCH (RBC) [Entitic mass] 28.0 pg 26.0 - 34.0 pg [facility] MCHC (RBC) [Mass/Vol] 32.6 g/dL 30.5 - 36.0 g/dL [facility] MCV (RBC) [Entitic vol] 85.7 fL 80.0 - 100.0 fL [facility] Monocytes (Bld) [#/Vol] 0.62 10*3/uL <0.87 k/uL [facility] Monocytes/100 WBC (Bld) 7.4 % [facility] Neutrophils (Bld) [#/Vol] 4.80 10*3/uL 1.45 - 7.50 k/uL [facility] Neutrophils/100 WBC (Bld) 57.4 % [facility] Nucleated RBC (Bld) [#/Vol] <0.01 k/uL [facility] Nucleated RBC/100 WBC (Bld) [Ratio] 0.0 /100 WBC [facility] Platelet mean volume (Bld) [Entitic vol] 10.4 fL 9.0 - 12.7 fL [facility] Platelets (Bld) [#/Vol] 278 10*3/uL 150 - 400 k/uL [facility] RBC (Bld) [#/Vol] 5.04 10*6/uL 3.90 - 5.2 0 m/uL [facility] WBC (Bld) [#/Vol] 8.37 10*3/uL 3.70 - 11. 00 k/uL [facility] Comprehensive metabolic 2000 panelon 09-22-2022 Albumin [Mass/Vol] 4.4 g/dL 3.9 - 4.9 g/dL [facility] ALP [Catalytic activity/Vol] 68 U/L 34 - 123 U/L [facility] ALT [Catalytic activity/Vol] 16 U/L 7 - 38 U/L [facility] Anion gap [Moles/Vol] 10 mmol/L 9 - 18 mmol/L [facility] AST [Catalytic activity/Vol] 22 U/L 13 - 35 U/L [facility] Bilirubin [Mass/Vol] 0.4 mg/dL 0.2 - 1.3 mg/dL [facility] Calcium [Mass/Vol] 9.5 mg/dL 8.5 - 10. 2 mg/dL [facility] Chloride [Moles/Vol] 104 mmol/L 97 - 105 mmol/L [facility] CO2 [Moles/Vol] 25 mmol/L 22 - 30 mmol/L [facility] Creatinine [Mass/Vol] 0.81 mg/dL 0.58 - 0.96 mg/dL [facility] Estimated Glomerular Filtration Rate 98 mL/min/1.73m >=60 mL/min/1.73m [facility] Glucose [Mass/Vol] 101 mg/dL High 74 - 99 mg/dL [facility] Potassium [Moles/Vol] 4.1 mmol/L 3.7 - 5.1 mmol/L [facility] Protein [Mass/Vol] 6.9 g/dL 6.3 - 8.0 g/dL [facility] Sodium [Moles/Vol] 139 mmol/L 136 - 144 mmol/L [facility] Urea nitrogen [Mass/Vol] 14 mg/dL 7 - 21 mg/dL [facility] HbA1c (Bld)on 09-22-2022 Average glucose Estimated from glycated hemoglobin (Bld) [Mass/Vol] 97 mg/dL [facility] HbA1c (Bld) [Mass fraction] 5.0 % 4.3 - 5.6 % [facility] Lipid 1996 panelon 3 Cholesterol [Mass/Vol] 174 mg/dL <200 mg/dL [facility] Cholesterol in HDL [Mass/Vol] 55 mg/dL >39 mg/dL [facility] Cholesterol in LDL [Mass/Vol] 97 mg/dL <100 mg/dL [facility] Cholesterol in LDL/Cholesterol in HDL [Mass ratio] 1.76 {ratio} <2.54 [facility] Cholesterol in VLDL [Mass/Vol] 22 mg/dL <30 mg/dL [facility] Cholesterol non HDL [Mass/Vol] 119 mg/dL <130 mg/dL [facility] Cholesterol.total/Ch olesterol in HDL [Mass ratio] 3.16 {ratio} <5.10 [facility] Fasting Time 14 hrs [facility] Triglyceride [Mass/Vol] 108 mg/dL <150 mg/dL [facility] XR Foot - left AP and Latera l and obliqueon 04-06-2020 IMPRESSION: No acute osseous abnormality identified. Service Crew Supervisor: PSCB Transcribe Date/Time: Apr 06 2020 9:59A Dictated by : NANDO SWIFT MD This examination was interpreted and the report reviewed and electronically signed by: NANDO SWIFT MD on Apr 06 2020 10:04AM [facility] DIVISION OF RADIOLOGY * * [...] tissue abnormality identified. DIVISION OF RADIOLOGY Provider, [facility] - 04/06/2020 * * *Final Report* * [...] IMPRESSION IMPRESSION: No acute osseous abnormality identified. Service Crew Supervisor: PSCB Transcribe Date/Time: Apr 06 2020 9:59A Dictated by : NANDO SWIFT MD This examination was interpreted and the report reviewed and electronically signed by: NANDO SWIFT MD on Apr 06 2020 10:04AM EST [facility] Radiology Study observation (narrative) [facility] XR Foot - left AP and Latera l and obliqueOrdered By: Ccf Provider on 04-06-2020 [facility] Vital Signs Date Time Vital Sign Value Performing Clinician Facility 10-29-2024 10:58-0400 Body mass index (BMI) [Ratio] 39.18 kg/m2 Kristen Smith MD Work Phone: [facility] 10-29-2024 10:58-0400 Body weight 107.96 kg Kristen Smith MD Work Phone: [facility] 10-29-2024 10:58-0400 Diastolic blood pressure 68 mm[Hg] Kristen Smith MD Work Phone: [facility] 10-29-2024 10:58-0400 Systolic blood pressure 100 mm[Hg] Kristen Smith MD Work Phone: [facility] 10-15-2024 14:38-0400 Body mass index (BMI) [Ratio] 39.18 kg/m2 Lauren Madera APRN.STATISTICAL PROGRAMMER ANALYST Work Phone: [facility] 10-15-2024 14:38-0400 Body weight 107.96 kg Lauren Madera APRN.STATISTICAL PROGRAMMER ANALYST Work Phone: [facility] 10-15-2024 14:38-0400 Diastolic blood pressure 80 mm[Hg] Lauren Matakim CARPENTER.STATISTICAL PROGRAMMER ANALYST Work Phone: [facility] 10-15-2024 14:38-0400 Systolic blood pressure 120 mm[Hg] Lauren Matakim CARPENTER.STATISTICAL PROGRAMMER ANALYST Work Phone: [facility] 08-23-2024 08:41-0400 Body height 166 cm Miguelito Champion DO Work Phone: [facility] 08-23-2024 08:41-0400 Body mass index (BMI) [Ratio] 37.4 kg/m2 Miguelito Champion DO Work Phone: [facility] 08-23-2024 08:41-0400 Body temperature 98.01 [degF] Miguelito Champion DO Work Phone: [facility] 08-23-2024 08:41-0400 Body weight 103.06 kg Miguelito Champion DO Work Phone: [facility] 08-23-2024 08:41-0400 Diastolic blood pressure 67 mm[Hg] Miguelito Champion DO Work Phone: [facility] Comment on above: bp machine 08-23-2024 08:41-0400 Heart rate 85 /min Miguelito Champion DO Work Phone: [facility] 08-23-2024 08:41-0400 SaO2% (BldA) [Mass fraction] 97 % Miguelito Champion DO Work Phone: [facility] 08-23-2024 08:41-0400 Systolic blood pressure 106 mm[Hg] Miguelito Champion DO Work Phone: [facility] Comment on above: bp machine 08-22-2024 15:56-0400 Body mass index (BMI) [Ratio] 38.12 kg/m2 Joe Boyce MD Work Phone: [facility] 08-22-2024 15:56-0400 Body weight 103.78 kg Joe Boyce MD Work Phone: [facility] 08-22-2024 15:56-0400 Diastolic blood pressure 70 mm[Hg] Joe Boyce MD Work Phone: [facility] 08-22-2024 15:56-0400 Systolic blood pressure 116 mm[Hg] Joe Boyce MD Work Phone: [facility] 07-25-2024 11:48-0400 Diastolic blood pressure 64 mm[Hg] Denae Renteria PROPERTY INVESTOR.CNM Work Phone: [facility] 07-25-2024 11:48-0400 Systolic blood pressure 112 mm[Hg] Denae Renteria PROPERTY INVESTOR.CNM Work Phone: [facility] 05-23-2024 08:12-0400 Body mass index (BMI) [Ratio] 35.59 kg/m2 Shiloh Tom Bean PROPERTY INVESTOR.STATISTICAL PROGRAMMER ANALYST Work Phone: [facility] 05-23-2024 08:12-0400 Body weight 96.89 kg Shiloh Khoi PROPERTY INVESTOR.STATISTICAL PROGRAMMER ANALYST Work Phone: [facility] 05-23-2024 08:12-0400 Diastolic blood pressure 62 mm[Hg] Shiloh Khoi PROPERTY INVESTOR.STATISTICAL PROGRAMMER ANALYST Work Phone: [facility] 05-23-2024 08:12-0400 Systolic blood pressure 110 mm[Hg] Shiloh Tom Bean PROPERTY INVESTOR.STATISTICAL PROGRAMMER ANALYST Work Phone: [facility] 07-20-2023 12:38-0400 Body height 165 cm Miguelito Champion DO Work Phone: [facility] 07-20-2023 12:38-0400 Body mass index (BMI) [Ratio] 37.79 kg/m2 Miguelito Champion DO Work Phone: [facility] 07-20-2023 12:38-0400 Body temperature 96.91 [degF] Miguelito Champion DO Work Phone: [facility] 07-20-2023 12:38-0400 Body weight 102.88 kg Miguelito Champoin DO Work Phone: [facility] 07-20-2023 12:38-0400 Diastolic blood pressure 78 mm[Hg] Miguelito Champion DO Work Phone: [facility] 07-20-2023 12:38-0400 Heart rate 105 /min Miguelito Champion DO Work Phone: [facility] 07-20-2023 12:38-0400 Respiratory rate 16 /min Miguelito Champion DO Work Phone: [facility] 07-20-2023 12:38-0400 SaO2% (BldA) [Mass fraction] 99 % Miguelito Champion DO Work Phone: [facility] 07-20-2023 12:38-0400 Systolic blood pressure 104 mm[Hg] Miguelito Champion DO Work Phone: [facility] 09-22-2022 08:13-0400 Body height 164 cm Karen Azar PROPERTY INVESTOR.STATISTICAL PROGRAMMER ANALYST Work Phone: [facility] 09-22-2022 08:13-0400 Body weight 111.31 kg Karen Azar PROPERTY INVESTOR.STATISTICAL PROGRAMMER ANALYST Work Phone: [facility] 09-22-2022 08:13-0400 Diastolic blood pressure 70 mm[Hg] Karen Azar PROPERTY INVESTOR.STATISTICAL PROGRAMMER ANALYST Work Phone: [facility] 09-22-2022 08:13-0400 Heart rate 64 /min Karen Azar PROPERTY INVESTOR.STATISTICAL PROGRAMMER ANALYST Work Phone: [facility] 09-22-2022 08:13-0400 Respiratory rate 12 /min Karen Azar PROPERTY INVESTOR.STATISTICAL PROGRAMMER ANALYST Work Phone: [facility] 09-22-2022 08:13-0400 Systolic blood pressure 118 mm[Hg] Karen Azar PROPERTY INVESTOR.STATISTICAL PROGRAMMER ANALYST Work Phone: [facility] 06-13-2022 19:44-0400 Body temperature 98.01 [degF] Paula Lang PA-C Work Phone: [facility] 06-13-2022 19:44-0400 Body weight 112.49 kg Paula Athy PA-C Work Phone: [facility] 06-13-2022 19:44-0400 Diastolic blood pressure 72 mm[Hg] Paula Athy PA-C Work Phone: [facility] 06-13-2022 19:44-0400 Heart rate 90 /min Paula Athy PA-C Work Phone: [facility] 06-13-2022 19:44-0400 Respiratory rate 16 /min Paula Athy PA-C Work Phone: [facility] 06-13-2022 19:44-0400 SaO2% (BldA) [Mass fraction] 99 % Paula Athy PA-C Work Phone: [facility] 06-13-2022 19:44-0400 Systolic blood pressure 122 mm[Hg] Paula Athy PA-C Work Phone: [facility] 07-06-2021 07:39-0400 Body height 164.5 cm Miguelito Champion DO Work Phone: [facility] 07-06-2021 07:39-0400 Body temperature 97.5 [degF] Miguelito Champion DO Work Phone: [facility] 07-06-2021 07:39-0400 Body weight 103.87 kg Miguelito Champion DO Work Phone: [facility] 07-06-2021 07:39-0400 Diastolic blood pressure 70 mm[Hg] Miguelito Champion DO Work Phone: [facility] 07-06-2021 07:39-0400 Heart rate 80 /min Miguelito Champion DO Work Phone: [facility] 07-06-2021 07:39-0400 Respiratory rate 16 /min Miguelito Champion DO Work Phone: [facility] 07-06-2021 07:39-0400 Systolic blood pressure 120 mm[Hg] Miguelito Champion DO Work Phone: [facility] Encounters Encounter Date Encounter Type Care Provider Facility Start: 12-25-2024 End: 12-25-2024 ambulatory MIGUELITO L CHAMPION Facility:[facility] Start: 12-23-2024 End: 12-23-2024 ambulatory Denae Renteria Facility:[facility] Start: 12-18-2024 End: 12-18-2024 ambulatory MIGUELITO L CHAMPION Facility:[facility] Start: 12-11-2024 End: 12-11-2024 ambulatory MIGUELITO L CHAMPION Facility:[facility] Start: 12-11-2024 End: 12-11-2024 ambulatory MIGUELITO L CHAMPION Facility:[facility] Start: 11-27-2024 End: 11-27-2024 ambulatory MIGUELITO L CHAMPION Facility:[facility] Start: 11-12-2024 End: 11-12-2024 ambulatory MIGUELITO L CHAMPION Facility:[facility] Start: 11-12-2024 End: 11-12-2024 ambulatory MIGUELITO L CHAMPION Facility:[facility] Start: 10-29-2024 End: 10-29-2024 Telephone encounter Lianna Moreno MD Work Phone: OB/Gynecology Comment on above: Breast Pump RX Start: 10-29-2024 End: 10-29-2024 Patient encounter procedure Kristen Smith MD Work Phone: OB/Gynecology Comment on above: 30 weeks gestation o f (FORM[facility]LY [facility]) (Primary Dx); Supervision of high risk in second trimester ([facility]LY [facility]); Twin with single intrauterine , first trimester, fetus 1 (FORM[facility]LY [facility]); AMA (advanced maternal age) multigravida 35+, second trimester (FORMERLY [facility]); Obesity affecting in second trimester, unspecified obesity type ([facility]LY [facility]) Start: 10-29-2024 End: 10-29-2024 ambulatory MIGUELITO L CHAMPION Facility:[facility] Start: 10-24-2024 End: 10-27-2024 ambulatory Miguelito L [...] (HCC) (Primary Dx); 28 weeks gestation of (FORMERLY [facility]); Twin with single intrauterine , first trimester, fetus 1 ([facility]LY [facility]); AMA (advanced maternal age) multigravida 35+, second trimester ([facility]); Obesity affecting in second trimester, unspecified obesity type ([facility]LY [facility]); Hypothyroidism affecting in second trimester ([facility]); Rh negative state in antepartum period ([facility]LY [facility]); High-risk , multigravida of advanced maternal age, antepartum (HCC) High-risk , multigravida of advanced maternal age, antepartum ([facility]LY [facility]); 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 ([facility]); Class 2 obesity without serious comorbidity with body mass index (BMI) of 37.0 to 37.9 in adult, unspecified obesity type Start: 10-15-2024 End: 10-16-2024 ambulatory Lauren Madera APRN.CNP Work Phone: OB/Gynecology Comment on above: Hospital Form Start: 10-11-2024 End: 10-16-2024 Refill Miguelito Harshal Champion DO Work Phone: [facility] Comment on above: Refill Request Start: 09-19-2024 End: 09-19-2024 ambulatory MIGUELITO OROZCORISON Facility:[facility] Start: 09-18-2024 End: 09-18-2024 ambulatory MIGUELITO L CHAMPION Facility:[facility] Start: 08-23-2024 Encounter for genera l adult medical examination without abnormal findings MIGUELITO CHAMPION [facility] Start: 08-23-2024 End: 08-23-2024 Patient encounter procedure Miguelito Champion DO Work Phone: [facility] Comment on above: Wellness examination (Primary Dx); Screening for depression; Encounter for screening examination for other mental health and behavioral disorders; Acquired hypothyroidism; 20 weeks gestation of (FORM[facility]LY [facility]) Start: 08-23-2024 End: 08-23-2024 Patient encounter status Miguelito Harshal Champion Work Phone: [facility] Start: 08-23-2024 End: 08-23-2024 ambulatory MIGUELITO CHAMPION Facility:[facility] Start: 08-22-2024 End: 08-22-2024 ambulatory MIGUELITO CHAMPION Facility:[facility] Start: 08-22-2024 End: 08-22-2024 Patient encounter procedure Whi Tech 1 Circulation Worker [facility] Comment on above: Family history of co ngenital heart defect (Primary Dx); with uncertain dates in first trimester ([facility]); High-risk , multigravida of advanced maternal age, antepartum ([facility]); 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 ([facility]); Class 2 obesity without serious comorbidity with body mass index (BMI) of 37.0 to 37.9 in adult, unspecified obesity type Twin with single intrauterine , first trimester, fetus 1 (HCC) (Primary Dx); 20 weeks gestation of (FORM[facility]); Supervision of high risk in second trimester ([facility]); AMA (advanced maternal age) multigravida 35+, second trimester ([facility]); Obesity affecting in second trimester, unspecified obesity type (HCC); High-risk , multigravida of advanced maternal age, antepartum ([facility]) Start: 08-22-2024 End: 08-22-2024 ambulatory MIGUELITO CHAMPION Facility:[facility] Start: 07-25-2024 End: 09-24-2024 Follow-up encounter Kristen Smith MD Work Phone: OB/Gynecology Start: 07-25-2024 End: 07-25-2024 ambulatory MIGUELITO CHAMPION Facility:[facility] Start: 07-25-2024 End: 07-25-2024 Patient encounter procedure Whi Tech 1 Circulation Worker [facility] Comment on above: screening for malformation using ultrasonics ([facility]) (Primary Dx); Obesity affecting in second trimester, unspecified obesity type (HCC); Twin with single intrauterine , first trimester, fetus 1 (HCC); 16 weeks gestation of (FORM[facility]) Supervision of high risk in second trimester ([facility]) (Primary Dx); 16 weeks gestation of (FORM[facility]); Twin with single intrauterine , first trimester, fetus 1 ([facility]); Obesity affecting in second trimester, unspecified obesity type ([facility]); AMA (advanced maternal age) multigravida 35+, second trimester ([facility]); Hypothyroidism affecting in second trimester ([facility]) Start: 07-15-2024 End: 09-14-2024 Follow-up encounter Miguelito L Champion DO Work Phone: [facility] Start: 07-09-2024 End: 07-09-2024 ambulatory Joe Boyce MD Work Phone: OB/Gynecology Start: 07-09-2024 End: 07-09-2024 Follow-up encounter Joe Boyce MD Work Phone: OB/Gynecology Comment on above: Follow up Start: 07-04-2024 End: 07-04-2024 ambulatory MIGUELITO L CHAMPION Facility:[facility] Start: 07-04-2024 End: 07-04-2024 ambulatory MIGUELITO L CHAMPION Facility:[facility] Start: 07-04-2024 End: 07-08-2024 Telephone encounter Joe Boyce MD Work Phone: OB/Gynecology Comment on above: Appointment; Orders Start: 06-12-2024 End: 06-12-2024 ambulatory MIGUELITO L CHAMPION Facility:[facility] Start: 06-05-2024 End: 06-05-2024 ambulatory MIGUELITO L CHAMPION Facility:[facility] Start: 05-26-2024 End: 05-26-2024 Refill Miguelito L [...] L Champion DO Work Phone: [facility] Comment on above: Thyroid labs Start: 05-23-2024 End: 05-23-2024 Patient encounter procedure Shilohfredrick SousaKhoiolga CARPENTER.STATISTICAL PROGRAMMER ANALYST Work Phone: OB/Gynecology Comment on above: High-risk [...] 04-07-2024 End: 04-14-2024 Follow-up encounter Karen Azar APRN.STATISTICAL PROGRAMMER ANALYST Work Phone: [facility] Comment on above: Acquired hypothyroid ism Start: 04-04-2024 End: 04-04-2024 ambulatory MIGUELITO L CHAMPION Facility:[facility] Start: 03-11-2024 End: 03-19-2024 Telephone encounter Miguelito [...] 02-14-2024 End: 02-18-2024 Telephone encounter Karen Azar PROPERTY INVESTOR.STATISTICAL PROGRAMMER ANALYST Work Phone: [facility] Comment on above: Results Start: 02-04-2024 End: 02-04-2024 ambulatory MIGUELITO Harshal CHAMPION Facility:[facility] Start: 01-16-2024 End: 01-16-2024 Get Medical Advice Miguelito L Champion DO Work Phone: [facility] Comment on above: Lab orders Start: 12-12-2023 End: 12-20-2023 ambulatory Miguelito Harshal OrozcoChampion DO Work Phone: [facility] Comment on above: labs Start: 11-21-2023 End: 11-21-2023 ambulatory Miguelito Harshal OrozcoChampion DO Work Phone: [facility] Comment on above: Lab results Start: 11-21-2023 End: 11-23-2023 Telephone encounter Miguelito Orozcorison DO Work Phone: [facility] Comment on above: Results (thyroid) Start: 10-03-2023 End: 10-04-2023 ambulatory Miguelito Orozcorison DO Work Phone: [facility] Comment on above: vermox Start: 09-22-2023 Telephone encounter Miguelito Pierce arrison DO Work Phone: [facility] Comment on above: Medication Request Start: 08-08-2023 Telephone encounter Miguelito Pierce arrison DO Work Phone: [facility] Start: 07-21-2023 End: 05-23-2024 Patient encounter status Miguelito Orozcorison DO Work Phone: [facility] Start: 07-20-2023 End: 07-20-2023 Patient encounter procedure Miguelito L Champion DO Work Phone: [facility] Comment on above: Wellness examination (Primary Dx); Acquired hypothyroidism; Class 2 obesity with body mass index (BMI) of 37.0 to 37.9 in adult, unspecified obesity type, unspecified whether serious comorbidity present Start: 07-20-2023 End: 07-20-2023 Patient encounter status Miguelito L Champion DO Work Phone: [facility] Work Phone: Start: 03-31-2023 Refill Karen Azar PROPERTY INVESTOR.STATISTICAL PROGRAMMER ANALYST Work Phone: [facility] Comment on above: Refill Request Start: 03-22-2023 ambulatory Miguelito bryson DO Work Phone: [facility] Comment on above: Weight loss Start: 03-22-2023 Telephone encounter Miguelito aponte DO Work Phone: [facility] Comment on above: Patient Question Start: 10-31-2022 ambulatory Miguelito bryson DO Work Phone: [facility] Comment on above: Thyroid meds Start: 10-31-2022 Telephone encounter Miguelito aponte DO Work Phone: [facility] Comment on above: Thyroid Problem Start: 10-20-2022 ambulatory Miguelito bryson DO Work Phone: [facility] Comment on above: Trashman thyroid Start: 10-20-2022 Telephone encounter Miguelito aponte DO Work Phone: [facility] Comment on above: Medication Problem Start: 10-13-2022 Refill Karen Azar PROPERTY INVESTOR.STATISTICAL PROGRAMMER ANALYST Work Phone: [facility] Comment on above: Med Change Request Start: 10-05-2022 Telephone encounter Miguelito aponte DO Work Phone: [facility] Start: 09-29-2022 ambulatory Miguelito bryson DO Work Phone: [facility] Comment on above: Labs Start: 09-23-2022 Telephone encounter Miguelito aponte DO Work Phone: [facility] Comment on above: Results Start: 09-22-2022 ambulatory Miguelito bryson DO Work Phone: [facility] Comment on above: Thyroid labs Start: 09-22-2022 End: 09-22-2022 Patient encounter procedure Karentim Azar PROPERTY INVESTOR.STATISTICAL PROGRAMMER ANALYST Work Phone: [facility] Comment on above: Wellness examination (Primary Dx); Acquired hypothyroidism Start: 09-22-2022 End: 09-22-2022 Patient encounter status Karen Azar APRN.STATISTICAL PROGRAMMER ANALYST Work Phone: [facility] Work Phone: Start: 08-28-2022 Patient encounter status Bc Champion DO Work Phone: [facility] Work Phone: Start: 08-28-2022 Telephone encounter Miguelito aponte DO Work Phone: [facility] Comment on above: Patient Question Start: 08-27-2022 ambulatory Miguelito bryson DO Work Phone: [facility] Comment on above: Yearly Health Screen ing Start: 07-03-2022 Telephone encounter Miguelito aponte DO Work Phone: [facility] Comment on above: Results Start: 06-25-2022 ambulatory Miguelito bryson DO Work Phone: [facility] Comment on above: Labs Start: 06-13-2022 End: 06-13-2022 Patient encounter procedure Paula Lang PA-C Work Phone: [facility] Comment on above: Cat scratch of forea rm, left, initial encounter (Primary Dx) Start: 03-10-2022 ambulatory Miguelito bryson DO Work Phone: [facility] Start: 03-10-2022 Patient encounter procedure Miguelito Champion DO Work Phone: [facility] Comment on above: Appointment Start: 12-09-2021 Refill Karen yap APRN.STATISTICAL PROGRAMMER ANALYST Work Phone: [facility] Comment on above: Refill Request Start: 08-07-2021 ambulatory Miguelito bryson DO Work Phone: [facility] Comment on above: Insurance Form Start: 07-06-2021 End: 07-06-2021 Patient encounter procedure Miguelito L Champion DO Work Phone: [facility] Comment on above: Wellness examination (Primary Dx); Acquired hypothyroidism Start: 07-06-2021 End: 07-06-2021 Patient encounter status Miguelito Champion DO Work Phone: [facility] Start: 06-13-2021 Refill Karen Zurawic k PROPERTY INVESTOR.STATISTICAL PROGRAMMER ANALYST Work Phone: [facility] Comment on above: Refill Request Start: 05-21-2021 Refill Karen Zurawic k PROPERTY INVESTOR.STATISTICAL PROGRAMMER ANALYST Work Phone: [facility] Comment on above: Refill Request Start: 05-18-2021 Telephone encounter Karen moreno PROPERTY INVESTOR.STATISTICAL PROGRAMMER ANALYST Work Phone: [facility] Comment on above: Results Start: 05-03-2021 Refill Karen Zurawic k PROPERTY INVESTOR.STATISTICAL PROGRAMMER ANALYST Work Phone: [facility] Comment on above: Refill Request Start: 04-29-2021 Patient encounter status Giovanni Dobbins MD Work Phone: [facility] Start: 04-29-2021 Refill Jorge Dobbins MD Work Phone: [facility] Comment on above: Refill Request Start: 04-06-2020 End: 04-06-2020 Subsequent hospital visit by physician Xr [facility] Work Phone: Radiology Comment on above: Foot injury, left, i nitial encounter [S99.922A] Start: 08-07-2018 End: 01-23-2019 Physical examination Miguelito Champion DO Work Phone: [facility] Start: 03-14-2018 End: 05-30-2019 Patient requested procedure Miguelito Champion DO Work Phone: [facility] Start: 12-24-2015 End: 03-28-2018 Patient encounter status Miguelito Champion DO Work Phone: [facility] Procedures Date Procedure Procedure Detail Performing Clinician Start: 10-15-2024 Antibody screen MIGUELITO CHAMPION Comment on above: Order Comment: Speci men Type: BLOOD SPECIMEN Ordering Facility: [facility] Address: [address] [place] [address] Performed By: #### 7 [id number], [id number] #### [facility] CLIA [id number] [address] [place], [place] [address] [address] [place] Start: 10-15-2024 Us preg uterus after 1st trimest / gestation Jossie Gonzales MD Work Phone: Start: 08-23-2024 Adult depression screening assessment Miguelito Champion DO Work Phone: Start: 08-22-2024 Us preg uterus after 1st trimest 1/ gestation Shiloh Westfall PROPERTY INVESTOR.STATISTICAL PROGRAMMER ANALYST Work Phone: Start: 07-25-2024 Us preg uterus after 1st trimest 1/ gestation Kristen Smith MD Work Phone: Start: 06-12-2024 Antibody screen MIGUELITO CHAMPION Comment on above: Order Comment: Speci men Type: BLOOD SPECIMEN Ordering Facility: [facility] Address: [address] [place] [address] Performed By: #### 7 [id number], [id number], [id number] #### [facility] CLIA [id number] [address] [place] [address] [place] Start: 05-23-2024 Us uterus limited 1/> fetuses Shiloh Westfall PROPERTY INVESTOR.STATISTICAL PROGRAMMER ANALYST Work Phone: Start: 07-06-2021 Adult depression screening assessment Miguelito Champion DO Work Phone: Start: 04-06-2020 Radex foot complete minimum 3 views Filiberto Groves PROPERTY INVESTOR.STATISTICAL PROGRAMMER ANALYST Work Phone: Start: 08-07-2018 Adult depression screening assessment Jorge Dobbins MD Work Phone: Plan of Treatment Date Care Activity Detail Author Start: 05-23-2029 Screening for malign ant neoplasm of cervix Cervical Cancer Screening [facility] Start: 08-23-2025 Annual PCP Team Purchasing Expeditor kelley Disease Visit Annual PCP Team Chronic Disease Visit [facility] Start: 08-23-2025 Anxiety Screening Anxiety Screening [facility] Start: 08-23-2025 Depression Screening Depression Scre ening [facility] Start: 01-07-2025 ambulatory Ambulatory Facility:[facility] Start: 11-23-2024 End: 02-22-2025 Thyrotropin [Units/volume] in Serum or Plasma THYROID STIMULATING HORMONE Lab Routine Acquired hypothyroidism Expected: 11/23/2024, Expires: 02/22/2025 [facility] Work Phone: Comment on above: Expected: 11/23/2024 , Expires: 02/22/2025 Start: 11-23-2024 End: 02-22-2025 Thyroxine (T4) free [Mass/volume] in Serum or Plasma T4 FREE/FREE THYROXINE Lab Routine Acquired hypothyroidism Expected: 11/23/2024, Expires: 02/22/2025 [facility] Comment on above: Expected: 11/23/2024 , Expires: 02/22/2025 Start: 11-12-2024 End: 11-12-2024 Patient encounter procedure Maternal Medicine Comment on above: Growth Growth /OB Start: 11-12-2024 RSV Vaccine (1 - Ris k 1-dose series) RSV Vaccine (1 - Risk 1-dose series) [facility] Start: 10-29-2024 End: 10-29-2024 Patient encounter procedure 10/29/2024 10:40 AM EDT Routine Office Visit OB/Gynecology [address] [place], [place] [id number] Kristen Smith MD [address] [place], [place] [id number] OB OB/Gynecology Comment on above: OB Start: 10-15-2024 End: 10-15-2024 ambulatory 10/15/2024 3:00 PM EDT Results Only [place] [facility] [address] [place] [id number] glucose lab-Requesting the dye free lemon match-e-be-nash-she-wish band flavor [facility] Comment on above: glucose lab-Requesti ng the dye free lemon match-e-be-nash-she-wish band flavor Start: 10-15-2024 End: 10-15-2024 Patient encounter procedure Maternal Medicine Comment on above: Growth Growth/glucose/OB Start: 10-15-2024 End: 01-14-2025 Thyrotropin [Units/volume] in Serum or Plasma [facility] Work Phone: Comment on above: Expected: 10/15/2024 , Expires: 01/14/2025 Start: 10-15-2024 End: 01-14-2025 Thyroxine (T4) free [Mass/volume] in Serum or Plasma [facility] Comment on above: Expected: 10/15/2024 , Expires: 01/14/2025 Start: 10-13-2024 Influenza vaccination [facility] Start: 09-23-2024 End: 12-23-2024 Thyrotropin [Units/volume] in Serum or Plasma THYROID STIMULATING HORMONE Lab Routine Acquired hypothyroidism Expected: 09/23/2024, Expires: 12/23/2024 [facility] Work Phone: Comment on above: Expected: 09/23/2024 , Expires: 12/23/2024 Start: 09-23-2024 End: 12-23-2024 Thyroxine (T4) free [Mass/volume] in Serum or Plasma T4 FREE/FREE THYROXINE Lab Routine Acquired hypothyroidism Expected: 09/23/2024, Expires: 12/23/2024 [facility] Comment on above: Expected: 09/23/2024 , Expires: 12/23/2024 Start: 09-18-2024 End: 09-18-2024 Patient encounter procedure 09/18/2024 2:40 PM EDT Routine Office Visit OB/Gynecology [address] [place] [address] Kristen Smith MD [address] [place] [address] OB OB/Gynecology Comment on above: OB Start: 08-23-2024 End: 08-23-2024 Patient encounter procedure 08/23/2024 9:00 AM EDT Office Visit Family Medicine Liz [address] [place] [address] Miguelito Champion, DO [address] [place] [address] Physical Family Medicine Liz Comment on above: Physical Start: 08-22-2024 End: 08-22-2024 Patient encounter procedure OB/Gynecology Comment on above: Twins/Anatomy/OB Anatomy/OB Start: 08-22-2024 End: 08-22-2024 Patient encounter procedure Maternal Medicine Comment on above: Twins/Anatomy Anatomy Start: 07-25-2024 End: 07-25-2024 Patient encounter procedure Maternal Medicine Comment on above: Early Anatomy OB Start: 07-19-2024 Annual PCP Team Purchasing Expeditor kelley Disease Visit Annual PCP Team Chronic Disease Visit [facility] Start: 07-08-2024 End: 07-08-2025 OBSTETRIC ULTRASOUND WHI OBSTETRIC ULTRASOUND WHI Anc Imaging Routine Twin with single intrauterine , first trimester, fetus 1 (HCC) 13 weeks gestation of (HCC) Obesity affecting in second trimester, unspecified obesity type (HCC) Expected: 07/08/2024, Expires: 07/08/2025 [facility] Work Phone: Comment on above: Expected: 07/08/2024 , Expires: 07/08/2025 Start: 07-04-2024 End: 07-04-2024 Patient encounter procedure Maternal Medicine Comment on above: Twin/Nuchal Twins/Nuchal/OB Start: 06-25-2024 End: 09-24-2024 Thyrotropin [Units/volume] in Serum or Plasma THYROID STIMULATING HORMONE Lab Routine Hypothyroidism, acquired Expected: 06/25/2024, Expires: 09/24/2024 [facility] Work Phone: Comment on above: Expected: 06/25/2024 , Expires: 09/24/2024 Start: 06-25-2024 End: 09-24-2024 Thyroxine (T4) free [Mass/volume] in Serum or Plasma T4 FREE/FREE THYROXINE Lab Routine Hypothyroidism, acquired Expected: 06/25/2024, Expires: 09/24/2024 [facility] Comment on above: Expected: 06/25/2024 , Expires: 09/24/2024 Start: 06-05-2024 End: 06-05-2024 Patient encounter procedure 06/05/2024 1:00 PM EDT Routine Office Visit OB/Gynecology [address] [place] [address] Remote, Circulation Worker [employer] [address] [place] [address] Twins /Dating OB/Gynecology Comment on above: Twins /Dating Start: 05-23-2024 End: 08-22-2024 ANEMIA REFLEX PANEL ANEMIA REFLEX PANEL Lab Routine with uncertain dates in first trimester (HCC) Expected: 05/23/2024, Expires: 08/22/2024 [facility] Work Phone: Comment on above: Expected: 05/23/2024 , Expires: 08/22/2024 Start: 05-23-2024 End: 08-22-2024 Chromosome 21 trisomy [Presence] in Blood or Tissue by Cytogenetics [id number] PLUS Lab Routine Twin gestation in first trimester, unspecified multiple gestation type (HCC) Expected: 05/23/2024, Expires: 08/22/2024 [facility] Comment on above: Expected: 05/23/2024 , Expires: 08/22/2024 Start: 05-23-2024 End: 08-22-2024 Hemoglobin A1c in Blood HEMOGLOBIN A1C Lab Routine with uncertain dates in first trimester (HCC) Expected: 05/23/2024, Expires: 08/22/2024 [facility] Comment on above: Expected: 05/23/2024 , Expires: 08/22/2024 Start: 05-23-2024 End: 08-22-2024 Hepatitis B virus surface Ag [Presence] in Serum HEPATITIS B SURFACE ANTIGEN Lab Routine with uncertain dates in first trimester (HCC) Expected: 05/23/2024, Expires: 08/22/2024 [facility] Comment on above: Expected: 05/23/2024 , Expires: 08/22/2024 Start: 05-23-2024 End: 08-22-2024 Hepatitis C virus Ab [Presence] in Serum HEPATITIS C ANTIBODY IA WITH CONFIRMATION Lab Routine with uncertain dates in first trimester (HCC) Expected: 05/23/2024, Expires: 08/22/2024 [facility] Comment on above: Expected: 05/23/2024 , Expires: 08/22/2024 Start: 05-23-2024 End: 08-22-2024 HIV 1+2 Ab [Presence] in Serum or Plasma by Immunoassay HIV 1/2 COMBO WITH REFLEX TO DIFFERENTIATION Lab Routine with uncertain dates in first trimester (HCC) Expected: 05/23/2024, Expires: 08/22/2024 [facility] Comment on above: Expected: 05/23/2024 , Expires: 08/22/2024 Start: 05-23-2024 End: 05-23-2025 OBSTETRIC ULTRASOUND [facility] Comment on above: Expected: 05/23/2024 , Expires: 05/23/2025 Start: 05-23-2024 End: 08-22-2024 RUBELLA IGG ANTIBODY RUBELLA IGG ANTIBODY Lab Routine with uncertain dates in first trimester (HCC) Expected: 05/23/2024, Expires: 08/22/2024 [facility] Comment on above: Expected: 05/23/2024 , Expires: 08/22/2024 Start: 05-23-2024 End: 08-22-2024 SYPHILIS TREPONEMAL W/REFLEX SYPHILIS TREPONEMAL W/REFLEX Lab Routine with uncertain dates in first trimester (HCC) Expected: 05/23/2024, Expires: 08/22/2024 [facility] Comment on above: Expected: 05/23/2024 , Expires: 08/22/2024 Start: 05-23-2024 End: 08-22-2024 TYPE + SCREEN TYPE + SCREEN Blood Bank Routine with uncertain dates in first trimester (HCC) Expected: 05/23/2024, Expires: 08/22/2024 [facility] Comment on above: Expected: 05/23/2024 , Expires: 08/22/2024 Start: 05-23-2024 End: 05-23-2024 Patient encounter procedure 05/23/2024 8:15 AM EDT Initial Office Visit OB/Gynecology [address] [place] [address] Shiloh Westfall APRN.STATISTICAL PROGRAMMER ANALYST [address] [place] [address] New OB=LMP 2 OB/Gynecology Comment on above: New OB=LMP 2/ Start: 05-05-2024 End: 08-04-2024 Thyrotropin [Units/volume] in Serum or Plasma THYROID STIMULATING HORMONE Lab Routine Hypothyroidism, acquired Expected: 05/05/2024, Expires: 08/04/2024 [facility] Work Phone: Comment on above: Expected: 05/05/2024 , Expires: 08/04/2024 Start: 05-05-2024 End: 08-04-2024 Thyroxine (T4) free [Mass/volume] in Serum or Plasma T4 FREE/FREE THYROXINE Lab Routine Hypothyroidism, acquired Expected: 05/05/2024, Expires: 08/04/2024 [facility] Comment on above: Expected: 05/05/2024 , Expires: 08/04/2024 Start: 03-25-2024 Urine microalbumin profile [facility] Start: 03-17-2024 End: 06-16-2024 Thyrotropin [Units/volume] in Serum or Plasma THYROID STIMULATING HORMONE Lab Routine Acquired hypothyroidism Expected: 03/17/2024, Expires: 06/16/2024 [facility] Work Phone: Comment on above: Expected: 03/17/2024 , Expires: 06/16/2024 Start: 03-17-2024 End: 06-16-2024 Thyroxine (T4) free [Mass/volume] in Serum or Plasma T4 FREE/FREE THYROXINE Lab Routine Acquired hypothyroidism Expected: 03/17/2024, Expires: 06/16/2024 [facility] Comment on above: Expected: 03/17/2024 , Expires: 06/16/2024 Start: 03-17-2024 End: 06-16-2024 Triiodothyronine (T3) [Mass/volume] in Serum or Plasma T3 Lab Routine Acquired hypothyroidism Expected: 03/17/2024, Expires: 06/16/2024 [facility] Comment on above: Expected: 03/17/2024 , Expires: 06/16/2024 Start: 10-14-2023 Covid-19 Vaccine ( season) Covid-19 Vaccine () [facility] Start: 10-14-2023 Influenza vaccination [facility] Start: 10-08-2023 End: 01-07-2024 CBC panel - Blood by Automated count COMPLETE BLOOD COUNT Lab Routine Acquired hypothyroidism Leukocytosis, unspecified type Expected: 10/08/2023, Expires: 01/07/2024 [facility] Comment on above: Expected: 10/08/2023 , Expires: 01/07/2024 Start: 10-08-2023 End: 01-07-2024 Thyrotropin [Units/volume] in Serum or Plasma THYROID STIMULATING HORMONE Lab Routine Acquired hypothyroidism Expected: 10/08/2023, Expires: 01/07/2024 [facility] Work Phone: Comment on above: Expected: 10/08/2023 , Expires: 01/07/2024 Start: 10-08-2023 End: 01-07-2024 Thyroxine (T4) free [Mass/volume] in Serum or Plasma T4 FREE/FREE THYROXINE Lab Routine Acquired hypothyroidism Expected: 10/08/2023, Expires: 01/07/2024 [facility] Comment on above: Expected: 10/08/2023 , Expires: 01/07/2024 Start: 10-08-2023 End: 01-07-2024 Triiodothyronine (T3) Free [Mass/volume] in Serum or Plasma T3, FREE Lab Routine Acquired hypothyroidism Expected: 10/08/2023, Expires: 01/07/2024 [facility] Comment on above: Expected: 10/08/2023 , Expires: 01/07/2024 Start: 09-23-2023 ANNUAL PCP TEAM CATERPILLAR OPERATOR KELLEY DISEASE VISIT ANNUAL PCP TEAM CHRONIC DISEASE VISIT [facility] Start: 09-23-2023 COVID-19 VACCINE (#1) COVID-19 VACCI NE (#1) [facility] Comment on above: Postponed from 09/18 (Declined at this time) Start: 09-23-2023 HPV TESTING HPV TESTING [facility] Comment on above: Postponed from 03/21 (Declined at this time) Start: 09-23-2023 Screening for malign ant neoplasm of cervix HPV Testing [facility] Comment on above: Postponed from 03/21 (Declined at this time) Start: 03-26-2023 PAP TESTING PAP TESTING [facility] Start: 03-26-2023 Screening for malign ant neoplasm of cervix Pap Testing [facility] Start: 02-12-2023 Behavioral Health Screening Behavioral Health Screening [facility] Start: 02-12-2023 Depression Assessment Depression Ass essment [facility] Start: 10-26-2022 End: 12-26-2022 Thyrotropin [Units/volume] in Serum or Plasma TSH BLD Lab Routine Acquired hypothyroidism Expected: 10/26/2022, Expires: 12/26/2022 [facility] Work Phone: Comment on above: Expected: 10/26/2022 , Expires: 12/26/2022 Start: 10-26-2022 End: 12-26-2022 Thyroxine (T4) free [Mass/volume] in Serum or Plasma T4 FREE/FREE THYROX Lab Routine Acquired hypothyroidism Expected: 10/26/2022, Expires: 12/26/2022 [facility] Work Phone: Comment on above: Expected: 10/26/2022 , Expires: 12/26/2022 Start: 10-26-2022 End: 12-26-2022 Triiodothyronine (T3) [Mass/volume] in Serum or Plasma T3 BLD Lab Routine Acquired hypothyroidism Expected: 10/26/2022, Expires: 12/26/2022 [facility] Work Phone: Comment on above: Expected: 10/26/2022 , Expires: 12/26/2022 Start: 10-13-2022 Covid-19 Vaccine () Covid-19 Vaccine () [facility] Start: 10-13-2022 Influenza vaccination [facility] Start: 09-11-2022 End: 11-11-2022 THYROID PEROXIDASE ANTIBODY BLOOD THYROID PEROXIDASE ANTIBODY BLOOD Lab Routine Acquired hypothyroidism Expected: 09/11/2022 (Approximate), Expires: 11/11/2022 [facility] Work Phone: Comment on above: Expected: 09/11/2022 (Approximate), Expires: 11/11/2022 Start: 09-11-2022 End: 11-11-2022 Thyrotropin [Units/volume] in Serum or Plasma TSH BLD Lab Routine Acquired hypothyroidism Expected: 09/11/2022 (Approximate), Expires: 11/11/2022 [facility] Work Phone: Comment on above: Expected: 09/11/2022 (Approximate), Expires: 11/11/2022 Start: 09-11-2022 End: 11-11-2022 Thyroxine (T4) free [Mass/volume] in Serum or Plasma T4 FREE/FREE THYROX Lab Routine Acquired hypothyroidism Expected: 09/11/2022 (Approximate), Expires: 11/11/2022 [facility] Work Phone: Comment on above: Expected: 09/11/2022 (Approximate), Expires: 11/11/2022 Start: 09-11-2022 End: 11-11-2022 Triiodothyronine (T3) Free [Mass/volume] in Serum or Plasma T3 FREE BLD Lab Routine Acquired hypothyroidism Expected: 09/11/2022 (Approximate), Expires: 11/11/2022 [facility] Work Phone: Comment on above: Expected: 09/11/2022 (Approximate), Expires: 11/11/2022 Start: 07-06-2022 Adult depression screening assessment DEPRESSION SCREENING [facility] Start: 07-06-2022 ANNUAL PCP TEAM CATERPILLAR OPERATOR KELLEY DISEASE VISIT ANNUAL PCP TEAM CHRONIC DISEASE VISIT [facility] Start: 07-06-2022 COVID-19 VACCINE (#1) COVID-19 VACCI NE (#1) [facility] Comment on above: Postponed from 03/21 (Declined at this time) Postponed from 09/18 (Declined at this time) Start: 02-12-2022 DEPRESSION ASSESSMENT DEPRESSION ASS ESSMENT [facility] Start: 10-13-2021 Influenza vaccination [facility] Start: 07-06-2021 End: 09-05-2021 T3 FREE BLD [facility] Work Phone: Comment on above: Expected: 07/06/2021 , Expires: 09/05/2021 Start: 07-06-2021 End: 09-05-2021 T4 FREE/FREE THYROX [facility] Work Phone: Comment on above: Expected: 07/06/2021 , Expires: 09/05/2021 Start: 07-06-2021 End: 09-05-2021 THYROID PEROXIDASE ANTIBODY BLOOD [facility] Work Phone: Comment on above: Expected: 07/06/2021 , Expires: 09/05/2021 Start: 07-06-2021 End: 09-05-2021 Thyrotropin [Units/volume] in Serum or Plasma [facility] Work Phone: Comment on above: Expected: 07/06/2021 , Expires: 09/05/2021 Start: 05-02-2021 End: 07-02-2021 CBC panel - Blood by Automated count CBC Lab Routine Acquired hypothyroidism Expected: 05/02/2021, Expires: 07/02/2021 [facility] Work Phone: Comment on above: Expected: 05/02/2021 , Expires: 07/02/2021 Start: 05-02-2021 End: 07-02-2021 Comprehensive metabolic 2000 panel - Serum or Plasma COMP METABOLIC PANEL Lab Routine Acquired hypothyroidism Expected: 05/02/2021, Expires: 07/02/2021 [facility] Work Phone: Comment on above: Expected: 05/02/2021 , Expires: 07/02/2021 Start: 05-02-2021 End: 07-02-2021 Hemoglobin A1c/Hemoglobin.total in Blood HGB A1C Lab Routine Wellness examination Expected: 05/02/2021, Expires: 07/02/2021 [facility] Work Phone: Comment on above: Expected: 05/02/2021 , Expires: 07/02/2021 Start: 05-02-2021 End: 07-02-2021 LIPID PANEL BASIC LIPID PANEL BASIC Lab Routine Wellness examination Expected: 05/02/2021, Expires: 07/02/2021 [facility] Work Phone: Comment on above: Expected: 05/02/2021 , Expires: 07/02/2021 Start: 05-02-2021 End: 07-02-2021 T3 BLD T3 BLD Lab Routine Wellness examination Expected: 05/02/2021, Expires: 07/02/2021 [facility] Work Phone: Comment on above: Expected: 05/02/2021 , Expires: 07/02/2021 Start: 05-02-2021 End: 07-02-2021 T4 FREE/FREE THYROX T4 FREE/FREE THYROX Lab Routine Wellness examination Expected: 05/02/2021, Expires: 07/02/2021 [facility] Work Phone: Comment on above: Expected: 05/02/2021 , Expires: 07/02/2021 Start: 05-02-2021 End: 07-02-2021 Thyrotropin [Units/volume] in Serum or Plasma TSH BLD Lab Routine Wellness examination Expected: 05/02/2021, Expires: 07/02/2021 [facility] Work Phone: Comment on above: Expected: 05/02/2021 , Expires: 07/02/2021 Start: 05-02-2021 End: 07-02-2021 VITAMIN D 25 HYDROXY VITAMIN D 25 HYDROXY Lab Routine Wellness examination Expected: 05/02/2021, Expires: 07/02/2021 [facility] Work Phone: Comment on above: Expected: 05/02/2021 , Expires: 07/02/2021 Start: 03-26-2021 Screening for malign ant neoplasm of cervix Cervical Cancer Screening [facility] Start: 02-12-2021 DEPRESSION ASSESSMENT DEPRESSION ASS ESSMENT [facility] Start: 10-13-2020 Influenza vaccination INFLUENZA (#1) [facility] Start: 05-29-2020 ANNUAL PCP TEAM CATERPILLAR OPERATOR KELLEY DISEASE VISIT ANNUAL PCP TEAM CHRONIC DISEASE VISIT [facility] Start: 08-08-2019 Adult depression screening assessment DEPRESSION SCREENING [facility] Start: 2019 HPV TESTING HPV TESTING [facility] Start: 12-15-2011 HPV VACCINE (3 - 3-d ose series) HPV VACCINE (3 - 3-dose series) [facility] Start: 11-06-2011 HPV Vaccine (3 - 3-d ose series) HPV Vaccine (3 - 3-dose series) [facility] Start: 2007 Anxiety Screening Anxiety Screening [facility] Start: 2007 Depression Screening Depression Scre ening [facility] Start: 1994 COVID-19 VACCINE (1) COVID-19 VACCIN E (1) [facility] Start: 1989 COVID-19 VACCINE (#1) COVID-19 VACCI NE (#1) [facility] Bacteria identified in Urine by Culture BACTERIAL CULTURE, URINE Microbiology Routine with uncertain dates in first trimester ([facility]) 05/23/2024 9:08 AM EDT [facility] Chlamydia trachomatis+Neisseria gonorrhoeae DNA [Presence] in Unspecified specimen by SAMSON with probe detection GONORRHEA/CHLAMYDIA NAAT Lab Routine with uncertain dates in first trimester ([facility]) 05/23/2024 9:08 AM EDT [facility] End: 02-21-2025 OBSTETRIC ULTRASOUND WHI OBSTETRIC ULTRASOUND I Anc Imaging Routine High-risk , multigravida of advanced maternal age, antepartum (HCC) 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 ([facility]) Class 2 obesity without serious comorbidity with body mass index (BMI) of 37.0 to 37.9 in adult, unspecified obesity type Once per month for 5 Occurrences starting 08/25/2024 until 02/21/2025 [facility] Work Phone: Comment on above: Once per month for 5 Occurrences starting 08/25/2024 until 02/21/2025 PAP TEST PAP TEST Lab Omaira newell Screening for cervical cancer Special screening examination for human papillomavirus (HPV) 05/23/2024 9:08 AM EDT [facility] TRICHOMONAS VAGINALI S NAAT TRICHOMONAS VAGINALIS NAAT Lab Routine Screen for STD (sexually transmitted disease) 05/23/2024 9:08 AM EDT [facility] Immunizations Immunization Date Immunization Notes Care Provider Ivonne bhatt 10-15-2024 RHO(D) immune globul in- IV or IM Lauren Madera APRN.CNP Work Phone: [facility] 05-08-2019 RHO(D) immune globul in- IV or IM Jorge Dobbins MD Work Phone: [facility] 03-26-2018 RHO(D) immune globul in- IV or IM Jorge Dobbins MD Work Phone: [facility] Work Phone: 12-05-2017 influenza virus vaccine, unspecified formulation Jorge Dobbins MD Work Phone: [facility] 12-05-2017 influenza, seasonal, injectable Jorge Dobbins MD Work Phone: [facility] 11-17-2016 influenza virus vaccine, unspecified formulation Jorge Dobbins MD Work Phone: [facility] 11-24-2015 influenza virus vaccine, unspecified formulation Jorge Dobbins MD Work Phone: [facility] 11-27-2014 influenza virus vaccine, unspecified formulation Jorge Dobbins MD Work Phone: [facility] 04-02-2014 RHO(D) immune globul in- IV or IM Jorge Dobbins MD Work Phone: [facility] 03-25-2014 tetanus toxoid, redu gracie diphtheria toxoid, and acellular pertussis vaccine, adsorbed Jorge Dobbins MD Work Phone: [facility] 11-20-2013 influenza, seasonal, injectable Jorge Dobbins MD Work Phone: [facility] Work Phone: 11-20-2012 influenza virus vaccine, whole virus Jorge Dobbins MD Work Phone: [facility] 11-13-2011 influenza virus vaccine, live, attenuated, for intranasal use Jorge Dobbins MD Work Phone: [facility] 08-14-2011 human papilloma viru s vaccine, quadrivalent Jorge Dobbins MD Work Phone: [facility] Work Phone: 05-11-2011 varicella virus vaccine Will tommie Dobbins MD Work Phone: [facility] 12-14-2008 tuberculin skin test ; purified protein derivative solution, intradermal Miguelito Champion DO Work Phone: [facility] 12-01-2008 influenza virus vaccine, unspecified formulation Jorge Dobbins MD Work Phone: [facility] Work Phone: 07-15-2008 tetanus toxoid, redu gracie diphtheria toxoid, and acellular pertussis vaccine, adsorbed Jorge Dobbins MD Work Phone: [facility] 07-07-2008 hepatitis B vaccine, adult dosage Jorge Dobbins MD Work Phone: [facility] Work Phone: 07-07-2008 human papilloma viru s vaccine, quadrivalent Jorge Dobbins MD Work Phone: [facility] Work Phone: 05-10-2008 hepatitis B vaccine, adult dosage Jorge Dobbins MD Work Phone: [facility] Work Phone: 01-27-2008 tuberculin skin test ; purified protein derivative solution, intradermal Miguelito Champion DO Work Phone: [facility] 01-20-2008 tuberculin skin test ; purified protein derivative solution, intradermal Miguelito Champion DO Work Phone: [facility] Payers Date Payer Category Payer Self-pay 2023 Private Health Insurance [id number] 2023 Private Health Insurance [id number] 2021 Unknown [employer] E PPO [id number] 2021-Present [phone] [address] [place] [address] PPO [id number] 2018 Unknown [employer]UE CARD PPO OOS [id number] 2018-Present [phone] [address] [place] [address] PPO [id number] 2018 Unknown [id number] Unknown [id number] Unknown [id number] Social History Date Type Detail Facility Start: 08-14-2011 End: 06-13-2022 Tobacco smoking status ILIS Never smoked tobacco [facility] Start: 04-06-2020 End: 10-29-2024 Alcohol intake Current non-drinker of alcohol (finding) [facility] Start: 05-28-2019 History SDOH Alcohol Frequency 1 [facility] Start: 05-28-2019 History SDOH Alcohol Std Drinks 98 [facility] Start: 10-14-2013 History SDOH Alcohol Comment very rarely, maybe 2x yearly- not when [facility] Start: 05-28-2019 History SDOH Social Connections Phone 5 [facility] Start: 05-28-2019 History SDOH Social Connections Get Together 2 [facility] Start: 05-28-2019 History SDOH Social Connections Rastafarian 3 [facility] Start: 05-28-2019 History SDOH Physical Activity DPW 0 [facility] Start: 05-28-2019 Education 15 [facility] Start: 1990 Sex Assigned At Female [facility] Start: 03-07-2020 End: 07-06-2021 Exposure to SARS-CoV-2 (event) Not sure [facility] Work Phone: Start: 08-14-2011 End: 06-13-2022 Tobacco use and exposure Smokeless tobacco non-user [facility] Work Phone: Start: 05-28-2019 End: 09-21-2022 History of Social function [facility] Start: 05-28-2019 End: 09-21-2022 Social connection and isolation panel [facility] Do you belong to any clubs or organizations such as muslim groups, unions, fraternal or athletic groups, or school groups? Yes [facility] Are you now , , , , never or living with a partner? [facility] How often to you hav e a drink containing alcohol? Never [facility] Start: 01-14-2012 How many standard drinks containing alcohol do you have on a typical day? Patient refused [facility] Do you feel stress - tense, restless, nervous, or anxious, or unable to sleep at night because your mind is troubled all the time - these days [OSQ] Only a little [facility] (I/We) worried wheth er (my/our) food would run out before (I/we) got money to buy more. Never true [facility] Start: 04-22-2018 Gender identity Identifies as female gender (finding) [facility] Start: 04-22-2018 Sexual orientation Heterosexual (finding) [facility] How hard is it for y ou to pay for the very basics like food, housing, medical care, and heating Not very hard [facility] In the past 12 month s, was there a time when you were not able to pay the mortgage or rent on time? No [facility] Start: 04-16-2024 [facility] Do you feel stress - tense, restless, nervous, or anxious, or unable to sleep at night because your mind is troubled all the time - these days [OSQ] Not at all [facility] Goals Date Patient Goal Desired Activity /State Personal health goal Functional Status Date Assessment Result Facility 08-17-2024 Total score [AUDIT-C] 0 08/18/19 25 9:57 AM EDT Shanel Ordoñez [facility] 08-17-2024 How often to you hav e a drink containing alcohol? Never 08/17/2024 9:57 AM EDT Shanel Ordoñez Never [facility] 08-17-2024 Functional status Patient does n ot drink 08/17/2024 9:57 AM EDT Shanel Ordoñez Patient does not drink [facility] 08-17-2024 How often do you hav e 6 or more drinks on 1 occasion? Never 08/17/2024 9:57 AM EDT Shanel Ordoñez Never [facility] 08-21-2014 Are you deaf, or do you have serious difficulty hearing No 08/21/2014 8:49 AM EDT Juliana Huston RN No [facility] 08-21-2014 Are you blind, or do you have serious difficulty seeing, even when wearing glasses No 08/21/2014 8:49 AM Juliana Castro, GILMAR No [facility] 08-21-2014 Do you have serious difficulty walking or climbing stairs No 08/21/2014 8:49 AM Juliana Castro, GILMAR No [facility] 08-21-2014 Do you have difficul ty dressing or bathing No 08/21/2014 8:49 AM JOHANNYT Juliana Huston, GILMAR No [facility] 08-21-2014 Because of a physica l, mental, or emotional condition, do you have difficulty doing errands alone such as visiting a physician's office or shopping No 08/21/2014 8:49 AM JOHANNYT Juliana Huston, GILMAR No [facility] Mental Status Date Assessment Result Facility 08-21-2014 Because of a physica l, mental, or emotional condition, do you have serious difficulty concentrating, remembering, or making decisions No 08/21/2014 8:49 AM Juliana Castro RN No [facility] Clinical Notes 12-19-2018 to 12-25-2024 Telephone Encounter - Juliana Huston RN - 10/29/2024 12:33 PM EDTTelephone Encounter - Juliana Huston RN - 10/29/2024 12:33 PM EDTPatient Kristen Jerez RN - 10/15/2024 4:29 PM EDT Note Date & Type Note Facility 12-25-2024 Note HNO ID: [id number] Author: JOE BOYCE MD Service: ? Author [...] Irregular Interpretation: Reactive SIGNATURE: Joe Boyce DO [facility] 12-24-2024 Note HNO ID: [id number] Author: GERA ISNGH, Semaj Service: ? Author Type: Patient Shelver Type: Progress Notes Filed: 12/24/2024 07:11 Note Text: POPULATION HEALTH NAVIGATION OUTREACH Action/FYI Added health care marketing manager to the chart through a note. No direct outreach was made. Reason for Outreach Medicaid OB/Peds Care Gaps due: N/A Patient Contacted: Unable or unnecessary to reach patient: health care marketing manager added Navigation Signature: Gera Singh Population Health Navigator December 24, 2024 7:10 AM [facility] 12-24-2024 Note Patient Outreach (NE TNAV) NENA LEIVA ([id number]) 1990 F Date Time Provider Department 12/24/24 EGRA SINGH During your visit today, we recorded the following information about you: Gera Singh 12/24/2024 7:11 AM Signed POPULATION HEALTH NAVIGATION OUTREACH Action/FYI Added health care marketing manager to the chart through a note. No direct outreach was made. Reason for Outreach Medicaid OB/Peds Care Gaps due: N/A Patient Contacted: Unable or unnecessary to reach patient: [place] health care marketing manager added Navigation Signature: Gera Singh Population Health Navigator December 24, 2024 7:10 AM Allergies As of Date: 12/24/2024 Noted Allergy Reaction BEES 07/07/2008 7 - Swelling LATEX 07/07/2008 4 - Hives Date Reviewed: 12/18/2024 Reviewed by: Kristen Smith MD - Fully Assessed Reason for Visit: Population Health Navigation Outreach [3910] Cmt: to PCP/OB Prescriptions as of 12/24/2024 - thyroid (SECOND BALLER THYROID) 120 mg tablet Take 1 tablet [...] Encounter Status:Closed by GERA SINGH on 12/24/24 [facility] 12-18-2024 Note HNO ID: [id number] Author: KRISTEN SMITH MD Service: ? Author Type: Physician Type: Progress Notes Filed: 12/18/2024 12:18 Note Text: NST SUMMARY PROVIDER ASSESSMENT AND INTERPRETATION Indications for NST: AMA and Obesity Baseline: 145 Variability: Moderate Accelerations: Present 15 X 15 Decelerations: None Interpretation: Reactive SIGNATURE: Kristen Smith MD [facility] 10-29-2024 Telephone encounter Note Order signed and faxed. Juliana Huston RN [facility] 10-29-2024 Miscellaneous Notes Order signed and faxed. Juliana Huston RN Received breast pump RX from [employer]. To DM to sign. Kristen Chang RN documented in this encounter [facility] 10-29-2024 Miscellaneous Notes S: Nena Leiva [...] visit ASSESSMENT/PLAN: 1. 30 weeks gestation of (FORM[facility]) - ICD9: V22.2, ICD10: Z3A.30 (primary diagnosis) 2. Supervision of high risk in second trimester ([facility]) - ICD9: V23.9, ICD10: O09.92 3. Twin with single intrauterine , first trimester, fetus 1 ([facility]) - ICD9: 651.33, ICD10: O31.21X1 4. AMA (advanced maternal age) multigravida 35+, second trimester (FORMER[facility]) - ICD9: 659.63, ICD10: O09.522 5. Obesity affecting in second trimester, unspecified obesity type ([facility]) - ICD9: 649.13, ICD10: O99.212 BMI 35 Weekly NSTs at 36 Growth q 4 Kristen Smith MD documented in this encounter [facility] 10-29-2024 Progress note Formatting of t [...] visit ASSESSMENT/PLAN: 1. 30 weeks gestation of ([facility]) - ICD9: V22.2, ICD10: Z3A.30 (primary diagnosis) 2. Supervision of high risk in second trimester ([facility]) - ICD9: V23.9, ICD10: O09.92 3. Twin with single intrauterine , first trimester, fetus 1 ([facility]) - ICD9: 651.33, ICD10: O31.21X1 4. AMA (advanced maternal age) multigravida 35+, second trimester ([facility]) - ICD9: 659.63, ICD10: O09.522 5. Obesity affecting in second trimester, unspecified obesity type (HCC) - ICD9: 649.13, ICD10: O99.212 BMI 35 Weekly NSTs at 36 Growth q 4 Kristen Smith MD [facility] 10-29-2024 Instructions Tasha Carias MA - 10/29/2024 10:57 AM EDT SEQUENTIAL SCREENINGS The [facility] offers sequential screenings for women who [...] It will require an appointment with our weatherization field technician. This is not an ultrasound performed [...] the above symptoms, contact our office at [phone] and ask to speak with a nurse. After hours, you can call doctors registry at [phone] OR call [facility] at [phone] and ask to have the doctor consignee paged. If you consider this an emergency, dial 10-13- or go to your nearest emergency department. NEED HELP? Are you dealing with a violent or abusive relationship? Are you a victim of rape or sexual assult? Call [facility] ([place]) 24 hour Crisis Hotline: 197.612.6076 or 889-376-7102. MANUAL Your Guide to a Healthy manual is now on-line. Visit [email or web address] ncyGuide to download your free copy documented in this encounter [facility] 10-29-2024 Telephone encounter Note Received breast pump RX from [employer]. To DM to sign. Kristen Chang, RN [facility] 10-27-2024 Telephone encounter Note See telephone note [facility] Work Phone: 10-27-2024 Miscellaneous Notes See telephone note documented in this encounter [facility] 10-24-2024 Telephone encounter Note Pt. informed via my chart. [facility] Work Phone: 10-24-2024 Miscellaneous Notes Pt. informed via my chart. Please have her increase her dose to 2 tablets 5 days a week and 1 tablet 2 days a week for her SECOND BALLER thyroid 120 mg Recheck labs 1 month [...] again. Thanks! Nena documented in this encounter [facility] 10-24-2024 Telephone encounter Note Please have her increase her dose to 2 tablets 5 days a week and 1 tablet 2 days a week for her SECOND BALLER thyroid 120 mg Recheck labs 1 month Miguelito Champion DO [facility] 10-24-2024 Telephone encounter Note Please see pt message -- I had labs drawn last week for OBGYN but I think my thyroid labs went to them for review. I just wanted to make sure you had a chance to review them and orders were in for the next time you want me to draw again. Thanks! Nena [facility] 10-24-2024 Telephone encounter Note TURNED INTOTE Crystal Giraldo MA [facility] 10-24-2024 Miscellaneous Notes TURNED INTOTE Crystal Giraldo MA documented in this encounter [facility] 10-16-2024 Note Indication Evaluation of growth [...] 4 oz EFW by: [place] (HC-AC-FL) Extended Insurance Examiner 3.8 mm Extremities / Bony Struc [place] [...] M.D. [facility] 10-15-2024 Note HNO ID: [id number] Author: KRISTEN CHANG RN Service: ? Author [...] her Rhophylac pocket card. Kristen Chang RN [facility] 10-15-2024 History of Present illness Narrative Nena [...] Kristen Chang, RN documented in this encounter [facility] 10-15-2024 Progress note Formatting of t [...] Supervision of high risk in second trimester ([facility]) - ICD9: V23.9, ICD10: O09.92 (primary diagnosis) - Continue PNV and LDA 2. 28 weeks gestation of ([facility]) - ICD9: V22.2, ICD10: Z3A.28 - Growth today, report pending - 1 hour GCT, CBC, and RPR today - Rh negative: Rhogam injection today - Declines TDAP - LARC form reviewed and signed. Declines. - Depression screen negative - plan form discussed and given to Nena - Reviewed how to pre register through [facility] 3. Twin with single intrauterine , first trimester, fetus 1 ([facility]) - ICD9: 651.33, ICD10: O31.21X1 4. AMA (advanced maternal age) multigravida 35+, second trimester ([facility]) - ICD9: 659.63, ICD10: O09.522 - Age 34 at VENICE 5. Obesity affecting in second trimester, unspecified obesity type ([facility]) - ICD9: 649.13, ICD10: O99.212 -Pre BMI 35 - Plan for 32 week growth q 4 weeks. - Weekly NSTs at 36 weeks. Hypothyroidism affecting in second trimester ([facility]) - ICD9: 648.13, 244.9, ICD10: O99.282, E03.9 - Managed by PCP - Continue 120 mg of SECOND BALLER Thryoid - Recheck today Rh negative state in antepartum period ([facility]) - ICD9: 646.83, ICD10: O26.899, Z67.91 - Rhogam today PTL precautions and kick counts reviewed. RTO in 2 weeks or sooner as needed. Lauren Madera APRN.STATISTICAL PROGRAMMER ANALYST [facility] 10-15-2024 Miscellaneous Notes .EH - S: [...] Supervision of high risk in second trimester ([facility]) - ICD9: V23.9, ICD10: O09.92 (primary diagnosis) - Continue PNV and LDA 2. 28 weeks gestation of ([facility]) - ICD9: V22.2, ICD10: Z3A.28 - Growth today, report pending - 1 hour GCT, CBC, and RPR today - Rh negative: Rhogam injection today - Declines TDAP - LARC form reviewed and signed. Declines. - Depression screen negative - plan form discussed and given to Nena - Reviewed how to pre register through [facility] 3. Twin with single intrauterine , first trimester, fetus 1 ([facility]) - ICD9: 651.33, ICD10: O31.21X1 4. AMA (advanced maternal age) multigravida 35+, second trimester ([facility]) - ICD9: 659.63, ICD10: O09.522 - Age 34 at VENCIE 5. Obesity affecting in second trimester, unspecified obesity type ([facility]) - ICD9: 649.13, ICD10: O99.212 -Pre BMI 35 - Plan for 32 week growth q 4 weeks. - Weekly NSTs at 36 weeks. Hypothyroidism affecting in second trimester ([facility]) - ICD9: 648.13, 244.9, ICD10: O99.282, E03.9 - Managed by PCP - Continue 120 mg of SECOND BALLER Thryoid - Recheck today Rh negative state in antepartum period ([facility]) - ICD9: 646.83, ICD10: O26.899, Z67.91 - Rhogam today PTL precautions and kick counts reviewed. RTO in 2 weeks or sooner as needed. Lauren Madera APRN.STATISTICAL PROGRAMMER ANALYST documented in this encounter [facility] 10-15-2024 Instructions Antelmo Sumner MA - 10/15/2024 2:27 PM EDT SEQUENTIAL SCREENINGS The [facility] offers sequential screenings for women who [...] It will require an appointment with our weatherization field technician. This is not an ultrasound performed [...] the above symptoms, contact our office at [phone] and ask to speak with a nurse. After hours, you can call doctors registry at [phone] OR call [facility] at [phone] and ask to have the doctor consignee paged. If you consider this an emergency, dial 9-1-1 or go to your nearest emergency department. NEED HELP? Are you dealing with a violent or abusive relationship? Are you a victim of rape or sexual assult? Call [facility] ([place]) 24 hour Crisis Hotline: 252.671.2349 or 206-401-1486. MANUAL Your Guide to a Healthy manual is now on-line. Visit [email or web address] ncyGuide to download your free copy documented in this encounter [facility] 10-14-2024 Telephone encounter Note Patient has been identified by name and date of : Patient phones for refill(s): Requested Prescriptions Pending Prescriptions Disp Refills thyroid (SECOND BALLER THYROID) 120 mg tablet Sig: Take 1 tablet PO 3 days a week and 2 tablets PO 4 days a week Date of last office visit in primary care: 08/23/2024 Date of next office visit in primary care: Visit date not found Please advise. Thank you. Lisa León LPN. [facility] Work Phone: 10-14-2024 Miscellaneous Notes Patient has been identified by name and date of : Patient phones for refill(s): Requested Prescriptions Pending Prescriptions Disp Refills thyroid (SECOND BALLER THYROID) 120 mg tablet Sig: Take 1 tablet PO 3 days a week and 2 tablets PO 4 days a week Date of last office visit in primary care: 08/23/2024 Date of next office visit in primary care: Visit date not found Please advise. Thank you. Lisa León LPN. documented in this encounter [facility] 08-25-2024 Progress note Formatting of t his note might be different from the original. SW- pt doing well. No pain, vb, lof PE: Gen- NAD, well appearing See flowsheet A/p 20 wk gestation - Anatomy US today and final report pending - Thyroid labs today - Cont LDA - RTO 4 wks Joe Boyce DO [facility] 08-25-2024 Miscellaneous Notes SW- pt doing well. No pain, vb, lof PE: Gen- NAD, well appearing See flowsheet A/p 20 wk gestation - Anatomy US today and final report pending - Thyroid labs today - Cont LDA - RTO 4 wks Joe Boyce DO documented in this encounter [facility] 08-23-2024 Note HNO ID: [id number] Author: MIGUELITO CHAMPION, Service: ? Author Type: Physician Type: Progress Notes Filed: 08/23/2024 10:40 Note Text: CC: Nena Leiva is a 34 year old female who presents to the office for physical HPI: Overall she is doing well She is with a baby girl and due in 20 weeks, she is 20 weeks 3 days and managed by OBGYN in [place]. She has had 3 other successful vaginal births-1 davies, 1 set of twins. She is taking her vitamins at this time. Hypothyroidism, she is taking 120 mg of SECOND BALLER thyroid 4 days a week and 240 [...] Lopez, et al. 2017 Guidelines of the [place] Thyroid Association for the Diagnosis and Management [...] daily. cetirizine (ZYRTEC) 10 mg tablet thyroid (SECOND BALLER THYROID) 120 mg tablet Take 1 tablet [...] - Instructed patien (more content not included)... [facility] 08-23-2024 History of Present illness Narrative CC: Nena Leiva is a 34 year old female who presents to the office for physical HPI: Overall she is doing well She is with a baby girl and due in 20 weeks, she is 20 weeks 3 days and managed by OBGYN in [place]. She has had 3 other successful vaginal births-1 davies, 1 set of twins. She is taking her vitamins at this time. Hypothyroidism, she is taking 120 mg of SECOND BALLER thyroid 4 days a week and 240 [...] Lopez et al. 2017 Guidelines of the [place] Thy[employer] Association for the Diagnosis and Management of Thyroid Disease during and the . Thyroid, 2017:27:3:315-389. 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 cetirizine (ZYRTEC) 10 mg tablet thyroid (SECOND BALLER THYROID) 120 mg tablet Take 1 tablet [...] in the morning or at bedtime. Increase SECOND BALLER thyroid to 240 mg 4 days a [...] agreed with the plan. Miguelito Champion DO [address] [place] [address] documented in this encounter [facility] 08-22-2024 Instructions Tasha Carias MA - 08/22/2024 3:45 PM EDT SEQUENTIAL SCREENINGS The [facility] offers sequential screenings for women who [...] It will require an appointment with our weatherization field technician. This is not an ultrasound performed [...] the above symptoms, contact our office at [phone] and ask to speak with a nurse. After hours, you can call doctors registry at [phone] OR call [facility] at [phone] and ask to have the doctor consignee paged. If you consider this an emergency, dial or go to your nearest emergency department. NEED HELP? Are you dealing with a violent or abusive relationship? Are you a victim of rape or sexual assult? Call [facility] ([place]) 24 hour Crisis Hotline: 843.367.7858 or 046-544-5705. MANUAL Your Guide to a Healthy manual is now on-line. Visit [email or web address] ncyGuide to download your free copy documented in this encounter [facility] 07-25-2024 Progress note Formatting of t [...] RTO in 4 weeks Denae Renteria APRN.CNM [facility] Work Phone: 07-25-2024 Miscellaneous Notes TINO-S: [...] Denae Renteria APRN.CNM documented in this encounter [facility] 07-25-2024 Instructions Mi Bauer MA - 07/25/2024 11:26 AM EDT SEQUENTIAL SCREENINGS The [facility] offers sequential screenings for women who [...] It will require an appointment with our weatherization field technician. This is not an ultrasound performed [...] the above symptoms, contact our office at [phone] and ask to speak with a nurse. After hours, you can call doctors registry at [phone] OR call [facility] at [phone] and ask to have the doctor consignee paged. If you consider this an emergency, dial 9-8 or go to your nearest emergency department. NEED HELP? Are you dealing with a violent or abusive relationship? Are you a victim of rape or sexual assult? Call [facility] ([place]) 24 hour Crisis Hotline: 880.760.1593 or 739-529-4729. MANUAL Your Guide to a Healthy manual is now on-line. Visit [email or web address] ncyGuide to download your free copy documented in this encounter [facility] 07-15-2024 Telephone encounter Note Pt. informed via My chart. [facility] Work Phone: 07-15-2024 Miscellaneous Notes Pt. informed via My chart. Please make sure she knows that her thyroid labs are slightly undercorrected. Recommend increasing SECOND BALLER thyroid 120 mg to 2 tablets 3 days a week and 1 tablet 4 days a week, recheck labs in 1 month Miguelito Champion DO documented in this encounter [facility] 07-15-2024 Telephone encounter Note Please make sure she knows that her thyroid labs are slightly undercorrected. Recommend increasing SECOND BALLER thyroid 120 mg to 2 tablets 3 days a week and 1 tablet 4 days a week, recheck labs in 1 month Miguelito Champion DO [facility] 07-09-2024 Telephone encounter Note You can add her on that is fine. Thanks, Denae Renteria APRN.CNM [facility] Work Phone: 07-09-2024 Miscellaneous Notes You can add her on that is fine. Thanks, Denae Renteria APRN.CNM 14w0d Patient has her 16 week anatomy on 07/25 at 11:00 AM. Would like to have a visit afterwards. Would you OK with seeing her afterwards with your schedule? You are consignee. If not, I can offer her 8:00 AM. I know she has issues with attendant child activity. Kristen Chang RN documented in this encounter [facility] 07-09-2024 Telephone encounter Note 14w0d Patient has her 16 week anatomy on 07/25 at 11:00 AM. Would like to have a visit afterwards. Would you OK with seeing her afterwards with your schedule? You are consignee. If not, I can offer her 8:00 AM. I know she has issues with attendant child activity. Kristen Chang, GILMAR [facility] 07-08-2024 Telephone encounter Note Early anatomy ultrasound scheduled. [employer] message sent to patient. Juliana Huston RN [facility] 07-08-2024 Miscellaneous Notes Early anatomy ultrasound scheduled. [employer] message sent to patient. uJliana Huston RN 13w2d Patient needs 16 week anatomy. Placed 6 @ 11 AM on hold. Will need to attach order and officially schedule once order is placed after today's visit with SW. Kristen Chang RN documented in this encounter [facility] 07-04-2024 Telephone encounter Note 13w2d Patient needs 16 week anatomy. Placed 6/ @ 11 AM on hold. Will need to attach order and officially schedule once order is placed after today's visit with SW. Kristen Chang RN [facility] 06-05-2024 Note HNO ID: [id number] Author: WILLIE ECHEVERRIA MD Service: ? Author Type: Physician Type: Progress Notes Filed: 06/05/2024 16:08 Note Text: June 05, 2024 3:23 PM Left message voice mail I was trying to reach her regarding her ultrasound remote read of today. Willie Echeverria MD [facility] 06-05-2024 Note HNO ID: [id number] Author: WILLIE ECHEVERRIA MD Service: ? Author Type: Physician Type: Progress Notes Filed: 06/05/2024 16:08 Note Text: The patient presents for requested ultrasound. Full report available in the Imaging tab in Epic. Willie Echeverria MD [facility] 05-26-2024 Telephone encounter Note Pt sends mychart [...] [facility]. Thank you so much for everything! [facility] 05-26-2024 Miscellaneous Notes Pt sends mychart [...] much for everything! documented in this encounter [facility] 05-26-2024 Telephone encounter Note See TE May 26, 2024 [facility] 05-26-2024 Miscellaneous Notes See TE May 26, 2024 documented in this encounter [facility] 05-26-2024 Telephone encounter Note Pt notified of results via Twitcht. Glo Smith Ma [facility] 05-26-2024 Miscellaneous Notes Pt notified of results via Twitcht. Glo Smith Ma Please give her my congratulations on her ! Please have her increase dose of her thyroid medication as below and recheck labs in 4 weeks after this change Miguelito Champion, DO The following approved medication requests have been transmitted electronically. Requested Prescriptions Signed Prescriptions Disp Refills thyroid (SECOND BALLER THYROID) 120 mg tablet 140 tablet 3 [...] your help! Nena documented in this encounter [facility] 05-26-2024 Telephone encounter Note Please give her my congratulations on her ! Please have her increase dose of her thyroid medication as below and recheck labs in 4 weeks after this change Miguelito Champion DO The following approved medication requests have been transmitted electronically. Requested Prescriptions Signed Prescriptions Disp Refills thyroid (SECOND BALLER THYROID) 120 mg tablet 140 tablet 3 Sig: Take 1 tablet PO 5 days a week and 2 tablets PO 2 days a week Authorizing Provider: MIGUELITO CHAMPION DO [facility] 05-24-2024 Telephone encounter Note Hi Dr [...] high. Thanks for all your help! Ali [facility] 05-23-2024 Note HNO ID: [id number] Author: ANTELMO SUMNER MA Service: ? Author Type: Suede Brusher Type: Progress Notes Filed: 05/23/2024 11:52 Note Text: OB point of care ultrasound was performed. See imaging tab for details. Antelmo Sumner MA [facility] 05-23-2024 History of Present illness Narrative OB point of care ultrasound was performed. See imaging tab for details. 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 SECOND BALLER THYROID 60 mg tablet TAKE 2 TABLETS [...] discussed with the Patient or Patient's Authorized Manager Mba. As applicable, any other physician, advance practice provider, medical student, or other health professional student that will be observing or involved in the sensitive examination for educational or training purposes was discussed with the Patient or Authorized Manager Mba. The Patient or Authorized Manager Mba has agreed to proceed with the sensitive [...] Your guide to a health and the Airport Clerk. Reviewed midwifery and director of sustainability programs services that are available. 2) Screening: Hemoglobin [...] Shiloh Westfall APRN.CNP documented in this encounter [facility] 05-19-2024 Note HNO ID: [id number] Author: SHILOH WESTFALL APRN.STATISTICAL PROGRAMMER ANALYST Service: ? 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 Gender: Male PAST MEDICAL HISTORY Diagnosis Date Acquired hypothyroidism 01/21/2015 Hypothyroidism 08/05/2012 mastitis Partial molar ([facility]) 03/2018 Rh negative state in antepartum period (FORMERLY [facility]) 11/07/2013 Vitamin D deficiency PAST SURGICAL HISTORY Procedure Laterality Date DILATION AND CURETTAGE DXAND/THER NONOBSTETRIC 03/28/2018 Dilation AND curettage PAST SURGICAL HISTORY OF 05/22 extraction of wisdom teeth Current Outpatient Medications Medication Sig Dispense Refill PNV no.95/ferrous fum/folic ac ( ORAL) Take 2 capsules by mouth once daily. SECOND BALLER THYROID 60 mg tablet TAKE 2 TABLETS [...] for: Heartburn, Constipa (more content not included)... [facility] 05-19-2024 Instructions Almita Sawyer LPN - 05/19/2024 3:37 PM EDT Please select the following link to access the [facility] Your Guide to a Healthy . [email or web address] Please select the following link to access the [facility] Your Guide to a Healthy . [email or web address] documented in this encounter [facility] 05-05-2024 Telephone encounter Note Pt. informed via My Chart. [facility] Work Phone: 05-05-2024 Miscellaneous Notes Pt. informed via My Chart. Order placed for thyroid labs Please let her know congratulations!!! Miguelito Champion DO Patient just found out she is . About 5 weeks along. When should she check TSH? She did stop the tirzepatide as soon as she found out she was . documented in this encounter [facility] 05-05-2024 Telephone encounter Note Order placed for thyroid labs Please let her know congratulations!!! Miguelito Champion DO [facility] 05-05-2024 Telephone encounter Note Patient notified and declines to schedule an appointment at this time. Patient states she will just wait to be seen on 05/23. Will call if she changes her mind and would like appointment to have HCG levels done. Juliana Huston RN [facility] 05-05-2024 Miscellaneous Notes Patient notified and [...] Kristen Chang RN documented in this encounter [facility] 05-05-2024 Telephone encounter Note Please have patient make an appointment to review. Can be a virtual this week so we can make sure appropriate follow up as well. Thank you, Denae Renteria APRN.CNM [facility] Work Phone: 05-05-2024 Telephone encounter Note LMP 05/31 Approximately 4w5d Patient has a hx of missed AB and partial molar . Denies cramping or bleeding. Asking for HCG levels for piece of mind. NOB is 05/23/24. Kristen Chang, RN [facility] 05-05-2024 Telephone encounter Note Patient just found out she is . About 5 weeks along. When should she check TSH? She did stop the tirzepatide as soon as she found out she was . [facility] 04-23-2024 Telephone encounter Note Patient has been [...] Please advise. Thank you. Lisa León LPN. [facility] Work Phone: 04-23-2024 Miscellaneous Notes Patient has [...] Lisa León LPN. documented in this encounter [facility] 04-14-2024 Telephone encounter Note See update from pt regarding thyroid dosage. Is requesting refill to be sent to Mail order, this has been pended. Update pt via Watsin once this has been sent. Romina Wells MA [facility] 04-14-2024 Miscellaneous Notes See update from pt regarding thyroid dosage. Is requesting refill to be sent to Mail order, this has been pended. Update pt via Brightkithart once this has been sent. Romina Wells MA Sent pt Watsin message notifying her we've attempted to reach her by phone with messages left requesting a call back. Sent Watsin message with results and recommendations below from [...] medication just slightly. Thank you, Karentim Azar APRN.STATISTICAL PROGRAMMER ANALYST documented in this encounter [facility] 04-14-2024 Progress note Formatting of t his note might be different from the original. Sent pt mychart message notifying her we've attempted to reach her by phone with messages left requesting a call back. Sent mychart message with results and recommendations below from Provider. Asked pt to update office with how she would like to proceed. Wait pt response. Romina Wells MA [facility] 04-08-2024 Telephone encounter Note Left a message for pt to call the office and ask to speak to a nurse. Renetta Sawyer LPN [facility] 04-07-2024 Telephone encounter Note Lft message to return call. [facility] 04-07-2024 Telephone encounter Note Please call patient and let her know that thyroid labs are improved. TSH is now WNL. However, there is still room to improve this, especially with T3 low now. See how patient is feeling and if symptomatic still. IF so, we can increase dosage of medication just slightly. Thank you, Karen Azar APRN.STATISTICAL PROGRAMMER ANALYST [facility] 03-19-2024 Telephone encounter Note Pt. informed via My Chart [facility] Work Phone: 03-19-2024 Miscellaneous Notes Pt. 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 Thank you for all you do! 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 Thank you for all you do! Ali [facility] 03-11-2024 Telephone encounter Note Transitioned to TE per provider preference. SHON Chavez [facility] 03-11-2024 Miscellaneous Notes Transitioned to TE per provider preference. SHON Chavez documented in this encounter [facility] 02-18-2024 Telephone encounter Note Pt notified of results via Watsin. Glo Smith Ma [facility] 02-18-2024 Miscellaneous Notes Pt notified of results via Brightkithart. Glo Smith Ma Left message to return call. Go ahead and increase to 2.5 tablets 1-2 days per week. And let me know in 4-6 weeks how you are feeling. We can repeat labs then. Thank you, Karen Azar APRN.STATISTICAL PROGRAMMER ANALYST Please see pt message - I would [...] she is feeling. Thank you, Karen Azar APRN.STATISTICAL PROGRAMMER ANALYST documented in this encounter [facility] 02-15-2024 Telephone encounter Note Left message to return call. [facility] 02-15-2024 Telephone encounter Note Go ahead and increase to 2.5 tablets 1-2 days per week. And let me know in 4-6 weeks how you are feeling. We can repeat labs then. Thank you, Karen Azar APRN.STATISTICAL PROGRAMMER ANALYST [facility] 02-14-2024 Telephone encounter Note Please see pt message - I would say overall I feel better than a few months ago but I have noticed hair loss, feeling some fatigue and a lower sex drive than what I would consider normal for me. I wouldn t be opposed to slightly changing things around to see if that improves? Thanks! Ali [facility] 02-14-2024 Telephone encounter Note Pt informed via message Crystal Giraldo MA [facility] 02-14-2024 Telephone encounter Note Please call patient and let her know that thyroid labs are greatly improved from 2 months ago. T3 and T4 are normal, however TSH is still slightly elevated. No change in regimen unless pt is symptomatic. Please see how she is feeling. Thank you, Karen Azar APRN.STATISTICAL PROGRAMMER ANALYST [facility] 01-16-2024 Telephone encounter Note Turned into TE Crystal Giraldo MA [facility] 01-16-2024 Miscellaneous Notes Turned into TE Crystal Giraldo MA documented in this encounter [facility] 12-20-2023 Telephone encounter Note Left a detailed message that prescription was sent to the pharmacy and the dose was increased. Renetta Sawyer LPN [facility] 12-20-2023 Miscellaneous Notes Left a detailed [...] tirzepatide sent to [facility] in [place]. I have probably enough for one more week on the 7.5 mg dose. Scale still not changing (ranging 214-216 since 10/10/23) but I can wait to increase the dose if that s what you prefer since I ve only been back on the increased dose of SECOND BALLER thyroid for about 3 weeks now. Just let me know! Thanks! Ali documented in this encounter [facility] 12-19-2023 Telephone encounter Note Okay to increase dose as below rx sent to pharmacy Miguelito Champion DO The following approved medication requests have been transmitted electronically. Requested Prescriptions Signed Prescriptions Disp Refills tirzepatide (MOUNJARO) 10 mg/0.5 mL pen injector 3 mL 3 Sig: Inject 10 mg subcutaneously one time a week. Authorizing Provider: MIGUELITO CHAMPION DO [facility] 12-19-2023 Telephone encounter Note Patient sent message check on status Any updates on the new script being sent over? I m using the last of what I have today and the pharmacy has no refills on file. I typically pick it up on Tuesdays and then take it on Wednesdays. I haven t missed a weekly dose since starting in March. Thanks! [facility] 12-12-2023 Telephone encounter Note re there lab orders in for when you d like me to recheck thyroid levels? Also, I will need a new script for the tirzepatide sent to [facility] in [place]. I have probably enough for one more week on the 7.5 mg dose. Scale still not changing (ranging 214-216 since 10/10/23) but I can wait to increase the dose if that s what you prefer since I ve only been back on the increased dose of SECOND BALLER thyroid for about 3 weeks now. Just let me know! Thanks! Ali [facility] Work Phone: 12-12-2023 Telephone encounter Note See telephone note. [facility] Work Phone: 12-12-2023 Miscellaneous Notes See telephone note. documented in this encounter [facility] 11-23-2023 Telephone encounter Note MC message read 12:11pm on 11/21. Crystal Giraldo MA [facility] 11-23-2023 Miscellaneous Notes MC message read 12:11pm on 11/21. Crystal Giraldo MA Phoned patient left message to return call and ask to speak to a nurse for results. Also sent message on her my chart with results below. Please have her increase her SECOND BALLER thyroid to take 2 tablets (120 mg) [...] Thank you! Nena documented in this encounter [facility] 11-22-2023 Telephone encounter Note Phoned patient left message to return call and ask to speak to a nurse for results. Also sent message on her my chart with results below. [facility] 11-21-2023 Telephone encounter Note Please have her increase her SECOND BALLER thyroid to take 2 tablets (120 mg) every day in the AM. Lets wait for 1-2 months to see if this helps her weight loss before increasing the GLP1 agonist for weight loss Miguelito Champion DO [facility] 11-21-2023 Telephone encounter Note Please see [...] just let me know! Thank you! Ali [facility] 10-04-2023 Telephone encounter Note Sent to provider via JAVAN Giraldo MA [facility] 10-04-2023 Miscellaneous Notes Sent to provider via JAVAN Giraldo MA documented in this encounter [facility] 09-24-2023 Telephone encounter Note Okay to take rx as below Miguelito Champion DO The following approved medication requests have been transmitted electronically. Requested Prescriptions Signed Prescriptions Disp Refills mebendazole (VERMOX) 100 mg chewable tablet 2 tablet 0 Sig: Take 1 tablet PO once. Repeat dose in 2 weeks Authorizing Provider: MIGUELITO CHAMPION DO [facility] 09-24-2023 Miscellaneous Notes Okay to take [...] Lavonne Meehan RN documented in this encounter [facility] 09-22-2023 Telephone encounter Note Patient calling to request medication for self and family members for pin worm. 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 Advised PCP out of office. Advised EC evaluation for sooner treatment. Lavonne Meehan RN [facility] 08-17-2023 Telephone encounter Note Letter sent to pts home. Closed. [facility] 08-17-2023 Miscellaneous Notes Letter sent to pts home. Closed. 3rd attempt to reach patient. Left message to return call. Crystal Giraldo MA Left message to return call. Left message to return call Crystal Giraldo MA Please inform patient that her labs were off with her free t3 high, normal free t4, high TSH levels. Would like her to cut back to taking SECOND BALLER thyroid 120 mg 5 days a week and only 60 mg on 2 days a week Rechecck thyroid labs in 6-8 weeks Also her white blood cell count was slightly high. Would like this rechecked when thyroid labs are rechecked Miguelito Chapmion DO documented in this encounter [facility] 08-14-2023 Telephone encounter Note 3rd attempt to reach patient. Left message to return call. Crystal Giraldo MA [facility] 08-10-2023 Telephone encounter Note Left message to return call. [facility] 08-08-2023 Telephone encounter Note Left message to return call Crystal Giraldo MA T [facility] 08-08-2023 Telephone encounter Note Please inform patient that her labs were off with her free t3 high, normal free t4, high TSH levels. Would like her to cut back to taking SECOND BALLER thyroid 120 mg 5 days a week and only 60 mg on 2 days a week Rechecck thyroid labs in 6-8 weeks Also her white blood cell count was slightly high. Would like this rechecked when thyroid labs are rechecked Miguelito Champion DO T [facility] 07-21-2023 History of Present illness Narrative [...] to have labs rechecked. She is taking SECOND BALLER thyroid hormone Vitamin D deficiency, taking supplement [...] once daily. cetirizine (ZYRTEC) 10 mg tablet SECOND BALLER THYROID 60 mg tablet TAKE 2 TABLETS [...] in the morning or at bedtime. Continue SECOND BALLER thyroid 3. Class 2 obesity with body [...] with the plan. Miguelito Champion DO [address] [place] [address] documented in this encounter [facility] 04-06-2023 Miscellaneous Notes Pt was notified [...] doing amazing! Ali documented in this encounter [facility] 04-02-2023 Miscellaneous Notes The following approved medication requests have been transmitted electronically. Requested Prescriptions Signed Prescriptions Disp Refills SECOND BALLER THYROID 60 mg tablet 180 tablet 3 Sig: TAKE 2 TABLETS BY MOUTH EVERY DAY Authorizing Provider: MARK ZAZUETA PA-C Patient has been identified by name and date of : Yes, Provider Miguelito Champion DO Date April 02, 2023 Time 10:23 AM Patient phones for refill(s): Requested Prescriptions Pending Prescriptions Disp Refills SECOND BALLER THYROID 60 mg tablet 60 tablet 3 [...] Glo Smith Ma. documented in this encounter [facility] 03-22-2023 Miscellaneous Notes Sent to provider in phone encounter. documented in this encounter [facility] 12-25-2022 Miscellaneous Notes Sent pt a [...] great summer! Ali documented in this encounter [facility] 11-01-2022 Miscellaneous Notes Pt. informed via [...] have resolved now. documented in this encounter [facility] 10-31-2022 Miscellaneous Notes Made into TE documented in this encounter [facility] 10-26-2022 Miscellaneous Notes It appears their was a verbal order given to pharmacy on 10/23/22. TE started and routed to PCP to review and advise. Will keep encounter open to update pt. Romina Wells Ma documented in this encounter [facility] 10-23-2022 Miscellaneous Notes Pharmacy called and now needs to be ordered Thyroid 60 mg. that Verbal order was given. I don't know what rx is available for her to change to. We need to call pharmacy and clarify? Jesse thyroid vs. Nature Thyroid etc Miguelito Champion DO Pt sent Watsin message today regarding issues with Thyroid medication. On 10/13/22, same medication was sent in it looks like but different dosage. See message below from pt and advise in Brightkithart message or TE. Message: Hi! I received a text from [email or web address] saying my thyroid medication was no longer being manufactured as SECOND BALLER thyroid and it was needing to be [...] Rx? Thank you! documented in this encounter [facility] 10-13-2022 Miscellaneous Notes Patient phones requesting refills as follows: Pharmacy comment: Alternative Requested:THIS APPEARS TO HAVE DISCONTINUED. SPECIFICALLY THIS BRAND. Requested Prescriptions Pending Prescriptions Disp Refills SECOND BALLER THYROID 60 mg tablet [Pharmacy Med Name: SECOND BALLER THYROID 60 MG TABLET] 60 tablet 3 Sig: TAKE 2 TABLETS BY MOUTH EVERY DAY Please review and advise. Yanni Evans LPN documented in this encounter [facility] 10-12-2022 Miscellaneous Notes Pt informed via Watsin message Crystal Giraldo Noted, please make sure she know that this was only 2 weeks before she had her labs checked so not long enough to know if helping yet. Needs to be 6-8 weeks to know if dose change of thyroid medication is helping her levels so no further med change at this time Miguelito Champion DO Please see pt Watsin message- Hi! When I was in to see Marycarmen a few weeks ago she adjusted my dose to 2 tablets daily. I ve been on a that since she made the change 3rd attempt to contact pt with no answer. Left message to return call. Will also send pt Twitcht message. Crystal Giraldo Left message to return call. Left message for patient to call office back Colleen Mendieta Ma Please inform patient that her TSH is high and free t4 is low normal. Her dose of thyroid hormone needs to be increased. What is she currently taking? Miguelito Champion DO documented in this encounter [facility] 09-29-2022 Miscellaneous Notes Results and provider message sent to patient via [employer] message per patient request. Patient already started [...] to number on form. I recommend increasing SECOND BALLER thyroid to 2 tablets every day of the week. This will keep regimen easier as well. Recheck labs in 6 weeks. The rest of lab work looks fantastic! Please also let her know that paperwork for employer physical is filled out. Please fax. This is in my outbox. Thank you, Karen Azar APRN.STATISTICAL PROGRAMMER ANALYST See My Chart Message below: I just saw the thyroid labs come through [facility]. I m just messaging to let you [...] Gay Rod RN documented in this encounter [facility] 09-23-2022 Miscellaneous Notes Turned Into Telephone Encounter. documented in this encounter [facility] 09-22-2022 History of Present illness Narrative [...] CONTROL) 300 mg cap Take by mouth. SECOND BALLER THYROID 60 mg tablet Take 1 tablet [...] diet of 1000 mg/day for under 50, 9244-9679 mg/day for 50+ - Depression screening tool [...] Patient agreeable to treatment plan. Karen Calles APRN.STATISTICAL PROGRAMMER ANALYST [address] [place] [address] documented in this encounter [facility] 08-28-2022 Miscellaneous Notes Copied to phone note. documented in this encounter [facility] 08-08-2022 Miscellaneous Notes Left another message for patient with negative results and recommendations.Dolores Valentin LPN Left message for pt to call back. Amanda Morgan MA ----- Message from Gita Argueta APRN.STATISTICAL PROGRAMMER ANALYST sent at 08/06/2022 8:10 AM EDT ----- [...] electronically. Requested Prescriptions Signed Prescriptions Disp Refills SECOND BALLER THYROID 60 mg tablet 144 tablet 3 [...] can you send an updated prescription to [facility] so I don t run out? Thank you for all you do! documented in this encounter [facility] 06-26-2022 Miscellaneous Notes Turned into JAVAN Giraldo documented in this encounter [facility] 06-13-2022 History of Present illness Narrative This note was created using [employer]iban[employer]. Subjective Nena Leiva is a 32 year [...] Current Outpatient Medications Medication Sig Dispense Refill SECOND BALLER THYROID 60 mg tablet Take 1 tablet [...] Reported on 06/13/2022) Biotin 10,000 mcg cap Rozpekgg-Wk-Ikr-Fe-FA tab Take 1 tablet by mouth. (Patient [...] Paula Lang PA-C documented in this encounter [facility] 04-07-2022 Miscellaneous Notes Pt informed Crystal Giraldo Yes Dr. Champion will take them as patients. They'll likely need to see Karen or myself. Humberto Goldman APRN.STATISTICAL PROGRAMMER ANALYST documented in this encounter [facility] 12-09-2021 Miscellaneous Notes Alexandro--07/06/21 Nov--nothing booked Last refill--07/08/21 120 with 2 refills Last labs--07/06/21 documented in this encounter [facility] 07-06-2021 History of Present illness Narrative CC: Nena Leiva is a 31 year old female who presents to the office for physical HPI: Overall she is feeling well. She has been working on her diet and exercise and has lost 50 lbs in the last 2 years after her twins have been born Hypothyroidism, taking SECOND BALLER thyroid hormone 2 days a week 2 [...] Son other (Eczema) Son Current Outpatient prescriptions: SECOND BALLER THYROID 60 mg Take 1 tablet 5 days a week and 2 tablets 2 days a week naltrexone 4.5 mg capsule Take 4.5 mg by mouth daily at bedtime. Biotin 10,000 mcg cap Nkhcouix-Fe-Lxt-Fe-FA ( VITAMIN) tab Take 1 tablet by [...] diet of 1000 mg/day for under 50, 2072-3675 mg/day for 50+ 2. Acquired hypothyroidism - [...] with the plan. Miguelito Champion DO [address] [place] [address] THE LAST 2 WEEKS, HAVE YOU BEEN [...] DIFFICULT AT ALL documented in this encounter [facility] 06-15-2021 Miscellaneous Notes Upcoming office visit and blood work this month. Will fill enough to get to this point. The following approved medication requests have been transmitted electronically. Signed Prescriptions Disp Refills SECOND BALLER THYROID 60 mg 108 tablet 1 Sig: Take 1 tablet 5 days a week and 2 tablets 2 days a week VIRIDIANA: Yes Authorizing Provider: KAREN CALLES APRN.STATISTICAL PROGRAMMER ANALYST Patient has been identified by name and date of : Yes Patient only has a few left of medication, see Watsin message. Patient phones for refill(s): Pending Prescriptions Disp Refills SECOND BALLER THYROID 60 MG TABLET 108 tablet 1 Sig: Take 1 tablet 5 days a week and 2 tablets 2 days a week VIRIDIANA: Yes Date of last office visit in primary care: 05/30/19 Please advise. Thank you. Dolores Layton LPN documented in this encounter [facility] 05-23-2021 Miscellaneous Notes The following approved medication requests have been transmitted electronically. Signed Prescriptions Disp Refills SECOND BALLER THYROID 60 mg 108 tablet 1 Sig: Take 1 tablet 5 days a week and 2 tablets 2 days a week VIRIDIANA: Yes Authorizing Provider: KAREN CALLES Ordering User: HUMBERTO GOLDMAN APRN.CNP alexandro-- 05/30/19 Last refill 05/18/21 34 with 0 refills documented in this encounter [facility] 05-18-2021 Miscellaneous Notes The following approved medication requests have been transmitted electronically. Signed Prescriptions Disp Refills SECOND BALLER THYROID 60 mg 34 tablet 0 Sig: Take 1 tablet 5 days a week and 2 tablets 2 days a week VIRIDIANA: Yes Authorizing Provider: KAREN CALLES APRN.CNP .Spoke with patient. Given message from provider's office. Patient verbalizes understanding. She is taking SECOND BALLER Thyroid as prescribed in note below. Please send new script to [facility]. Lavonne Meehan RN left with patient to contact office for results Crystal Mahajan Ma Please let patient know we got her blood work results. Her TSH is very elevated. Please clarify that she is taking SECOND BALLER thyroid 60 mg 6x/week and 2 tablets [...] Karen Calles APRN.CNP documented in this encounter [facility] 05-04-2021 Miscellaneous Notes Reminded of lab work by my chart. Remind patient that she needs blood work from 05/02 prior to any additional refills. The following approved medication requests have been transmitted electronically. Pending Prescriptions Disp Refills SECOND BALLER THYROID 60 MG TABLET 28 tablet 0 Sig: Take 1 tablet 1 days a week and 2 tablets 6 days a week VIRIDIANA: Yes Karen Calles APRN.CNP Patient has been identified by name and date of : Yes Patient phones for refill(s): Pending Prescriptions Disp Refills SECOND BALLER THYROID 60 MG TABLET 28 tablet 0 Sig: Take 1 tablet 1 days a week and 2 tablets 6 days a week VIRIDIANA: Yes Date of last office visit in primary care: appointment scheduled 07/06/2021 Please advise. Thank you. Dolores Layton LPN documented in this encounter [facility] 05-02-2021 Miscellaneous Notes Pt. informed via My Chart. Lisa León LPN Patient needs routine office visit d/t last visit almost 2 years ago. Blood work placed prior to scheduled appointment. Please assist in making appointment. The following approved medication requests have been transmitted electronically. Signed Prescriptions Disp Refills SECOND BALLER THYROID 60 mg 28 tablet 0 Sig: Take 1 tablet 1 days a week and 2 tablets 6 days a week VIRIDIANA: Yes Authorizing Provider: KAREN CALLES APRN.STATISTICAL PROGRAMMER ANALYST Patient phones requesting refills as follows: Pending Prescriptions Disp Refills SECOND BALLER THYROID 60 MG TABLET 28 tablet 0 Sig: Take 1 tablet 1 days a week and 2 tablets 6 days a week VIRIDIANA: Yes ALEXANDRO-05/30/19 Labs-02/07/21 NOV-none med filled 08/30/20 Please review and advise. Yanni Evans LPN documented in this encounter [facility] 04-06-2020 History of Present illness Narrative [...] 2020 9:49 AM documented in this encounter [facility] 12-19-2018 History of Past i llness [...] and optimal weight gain. Recommended patient see forming fixer to discuss further. Patient will consider. TKRN [...] of this encounter (statuses as of 05/02/2021) [facility] History of Past illness Narrative* Problem [...] and optimal weight gain. Recommended patient see forming fixer to discuss further. Patient will consider. TKRN [...] of this encounter (statuses as of 05/04/2021) [facility] History of Past illness Narrative* Problem [...] and optimal weight gain. Recommended patient see forming fixer to discuss further. Patient will consider. TKRN [...] of this encounter (statuses as of 05/18/2021) [facility] History of Past illness Narrative* Problem [...] and optimal weight gain. Recommended patient see forming fixer to discuss further. Patient will consider. TKRN [...] of this encounter (statuses as of 05/23/2021) [facility] History of Past illness Narrative* Problem [...] and optimal weight gain. Recommended patient see forming fixer to discuss further. Patient will consider. TKRN [...] of this encounter (statuses as of 06/15/2021) [facility] History of Past illness Narrative* Problem [...] and optimal weight gain. Recommended patient see forming fixer to discuss further. Patient will consider. TKRN [...] of this encounter (statuses as of 07/06/2021) [facility] History of Past illness Narrative* Problem [...] and optimal weight gain. Recommended patient see forming fixer to discuss further. Patient will consider. TKRN [...] of this encounter (statuses as of 08/19/2021) [facility] History of Past illness Narrative* Problem [...] and optimal weight gain. Recommended patient see forming fixer to discuss further. Patient will consider. TKRN [...] of this encounter (statuses as of 12/09/2021) [facility] History of Past illness Narrative* Problem [...] and optimal weight gain. Recommended patient see forming fixer to discuss further. Patient will consider. TKRN [...] of this encounter (statuses as of 04/07/2022) [facility] History of Past illness Narrative* Problem [...] and optimal weight gain. Recommended patient see forming fixer to discuss further. Patient will consider. TKRN [...] of this encounter (statuses as of 06/14/2022) [facility] History of Past illness Narrative* Problem [...] and optimal weight gain. Recommended patient see forming fixer to discuss further. Patient will consider. TKRN [...] of this encounter (statuses as of 06/26/2022) [facility] History of Past illness Narrative* Problem [...] and optimal weight gain. Recommended patient see forming fixer to discuss further. Patient will consider. TKRN [...] of this encounter (statuses as of 08/08/2022) [facility] History of Past illness Narrative* Problem [...] and optimal weight gain. Recommended patient see forming fixer to discuss further. Patient will consider. TKRN [...] of this encounter (statuses as of 08/28/2022) [facility] History of Past illness Narrative* Problem [...] and optimal weight gain. Recommended patient see forming fixer to discuss further. Patient will consider. TKRN [...] of this encounter (statuses as of 09/22/2022) [facility] History of Past illness Narrative* Problem [...] and optimal weight gain. Recommended patient see forming fixer to discuss further. Patient will consider. TKRN [...] of this encounter (statuses as of 09/23/2022) [facility] History of Past illness Narrative* Problem [...] 3 then monthly x 6 months. Freya Vealzquez MD Disorder of thyroid, antepartum 03/14/2018 03/28/2018 [...] and optimal weight gain. Recommended patient see forming fixer to discuss further. Patient will consider. TKRN [...] of this encounter (statuses as of 09/30/2022) [facility] of Past illness Narrative* Problem [...] and optimal weight gain. Recommended patient see forming fixer to discuss further. Patient will consider. TKRN [...] of this encounter (statuses as of 10/02/2022) [facility] History of Past illness Narrative* Problem [...] and optimal weight gain. Recommended patient see forming fixer to discuss further. Patient will consider. TKRN [...] of this encounter (statuses as of 10/13/2022) [facility] of Past illness Narrative* Problem [...] and optimal weight gain. Recommended patient see forming fixer to discuss further. Patient will consider. TKRN [...] of this encounter (statuses as of 10/13/2022) [facility] History of Past illness Narrative* Problem [...] and optimal weight gain. Recommended patient see forming fixer to discuss further. Patient will consider. TKRN [...] of this encounter (statuses as of 10/23/2022) [facility] History of Past illness Narrative* Problem [...] and optimal weight gain. Recommended patient see forming fixer to discuss further. Patient will consider. TKRN [...] of this encounter (statuses as of 10/26/2022) [facility] History of Past illness Narrative* Problem [...] and optimal weight gain. Recommended patient see forming fixer to discuss further. Patient will consider. TKRN [...] of this encounter (statuses as of 10/31/2022) [facility] History of Past illness Narrative* Problem [...] and optimal weight gain. Recommended patient see forming fixer to discuss further. Patient will consider. TKRN [...] of this encounter (statuses as of 11/02/2022) [facility] History of Past illness Narrative* Problem [...] and optimal weight gain. Recommended patient see forming fixer to discuss further. Patient will consider. TKRN [...] of this encounter (statuses as of 12/26/2022) [facility] History of Past illness Narrative* Problem [...] and optimal weight gain. Recommended patient see forming fixer to discuss further. Patient will consider. TKRN [...] of this encounter (statuses as of 03/22/2023) [facility] History of Past illness Narrative* Problem [...] and optimal weight gain. Recommended patient see forming fixer to discuss further. Patient will consider. TKRN [...] of this encounter (statuses as of 04/02/2023) [facility] History of Past illness Narrative* Problem [...] and optimal weight gain. Recommended patient see forming fixer to discuss further. Patient will consider. TKRN [...] of this encounter (statuses as of 04/06/2023) [facility] [place] [facility] Diagnosis Wellness examination- Primary Acquired hypothyroidism Unspecified hypothyroidism [facility] Acquired hypothyroidism Unspecified hypothyroidism [...] Primary documented in this encounter [facility] note* Diagnosis Acquired hypothyroidism Unspecified hypothyroidism documented in this encounter [facility] note* Diagnosis Wellness examination- Primary Acquired hypothyroidism Unspecified hypothyroidism Class 2 obesity with body mass index (BMI) of 37.0 to 37.9 in adult, unspecified obesity type, unspecified whether serious comorbidity present documented in this encounter [facility] note* Diagnosis Acquired hypothyroidism- Primary Unspecified hypothyroidism Leukocytosis, unspecified type documented in this encounter [facility] note* Diagnosis Class 2 obesity with body mass index (BMI) of 37.0 to 37.9 in adult, unspecified obesity type, unspecified whether serious comorbidity present- Primary documented in this encounter [facility] note* Diagnosis Acquired hypothyroidism- Primary Unspecified hypothyroidism documented in this encounter [facility] note* Diagnosis Acquired hypothyroidism Unspecified hypothyroidism documented in this encounter [facility] note* Diagnosis Class 2 obesity with body mass index (BMI) of 37.0 to 37.9 in adult, unspecified obesity type, unspecified whether serious comorbidity present documented in this encounter [facility] note* Diagnosis Hypothyroidism, acquired- Primary Unspecified hypothyroidism documented in this encounter [facility] note* Diagnosis High-risk , multigravida of advanced maternal age, antepartum (HCC)- Primary Twin gestation in first trimester, unspecified multiple gestation type (HCC) 7 weeks gestation of ([facility]) state, incidental with uncertain dates in first trimester ([facility]) Screen for STD (sexually transmitted disease) Screening examination for venereal disease Screening for cervical cancer Screening for malignant neoplasm of the cervix Special screening examination for human papillomavirus (HPV) documented in this encounter [facility] note* Diagnosis Hypothyroidism, acquired- Primary Unspecified hypothyroidism documented in this encounter [facility] note* Diagnosis Twin with single intrauterine , first trimester, fetus 1 (HCC)- Primary 13 weeks gestation of ([facility]) state, incidental Obesity affecting in second trimester, unspecified obesity type (HCC) documented in this encounter [facility] note* Diagnosis screening for malformation using ultrasonics ([facility])- Primary Encounter for routine screening for malformation using ultrasonics Obesity affecting in second trimester, unspecified obesity type (HCC) Twin with single intrauterine , first trimester, fetus 1 (HCC) 16 weeks gestation of ([facility]) state, incidental [facility] [place] [facility]* Diagnosis Supervision of high risk in second trimester ([facility])- Primary Unspecified high-risk 16 weeks gestation of ([facility]) state, incidental Twin with single intrauterine , first trimester, fetus 1 (HCC) Obesity affecting in second trimester, unspecified obesity type ([facility]) AMA (advanced maternal age) multigravida 35+, second trimester ([facility]) Hypothyroidism affecting in second trimester ([facility]) [facility] [place] [facility]* Diagnosis Wellness examination- Primary Screening for depression Encounter for screening examination for other mental health and behavioral disorders Acquired hypothyroidism Unspecified hypothyroidism 20 weeks gestation of ([facility]) state, incidental [facility] [place] [facility] Diagnosis Family history of congenital heart defect- Primary Family history of congenital anomalies with uncertain dates in first trimester ([facility]) High-risk , multigravida of advanced maternal age, antepartum ([facility]) 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 ([facility]) Class 2 obesity without serious comorbidity with body mass index (BMI) of 37.0 to 37.9 in adult, unspecified obesity type [facility] [place] [facility] Diagnosis Twin with single intrauterine , first trimester, fetus 1 ([facility])- Primary 20 weeks gestation of ([facility]) state, incidental Supervision of high risk in second trimester ([facility]) Unspecified high-risk AMA (advanced maternal age) multigravida 35+, second trimester ([facility]) Obesity affecting in second trimester, unspecified obesity type ([facility]) High-risk , multigravida of advanced maternal age, antepartum ([facility]) [facility] [place] [facility]* Diagnosis Hypothyroidism, acquired- Primary Unspecified hypothyroidism [facility] [place] [facility]* Diagnosis Supervision of high risk in second trimester ([facility])- Primary Unspecified high-risk 28 weeks gestation of ([facility]) state, incidental Twin with single intrauterine , first trimester, fetus 1 ([facility]) AMA (advanced maternal age) multigravida 35+, second trimester (HCC) Obesity affecting in second trimester, unspecified obesity type ([facility]) Hypothyroidism affecting in second trimester ([facility]) Rh negative state in antepartum period (HCC) Rhesus isoimmunization affecting management of mother, antepartum condition High-risk , multigravida of advanced maternal age, antepartum (HCC) documented in this encounter [facility] note* Diagnosis High-risk , multigravida of advanced maternal age, antepartum (HCC) 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 (HCC) Class 2 obesity without serious comorbidity with body mass index (BMI) of 37.0 to 37.9 in adult, unspecified obesity type documented in this encounter [facility] note* Diagnosis Acquired hypothyroidism- Primary Unspecified hypothyroidism documented in this encounter [facility] note* Diagnosis 30 weeks gestation of (HCC)- Primary state, incidental Supervision of high risk in second trimester (HCC) Unspecified high-risk Twin with single intrauterine , first trimester, fetus 1 (HCC) AMA (advanced maternal age) multigravida 35+, second trimester (HCC) Obesity affecting in second trimester, unspecified obesity type (HCC) documented in this encounter [facility] Reason for Referral Specialty Diagnoses / Procedures Referred By Judy cordero Referred To Contact Diagnoses Class 2 obesity with body mass index (BMI) of 37.0 to 37.9 in adult, unspecified obesity type, unspecified whether serious comorbidity present Miguelito Champion, [address] [place] [address] Referral ID Status Reason Start Date Expiration Date Visits Re quested Visits Authorized [id number] Closed 12/19/2023 02/17/2024 1 1 Summary Purpose [...] or prosecute any alcohol or drug abuse patient.[facility] HospitalIn the event this information is protected by the Federal Confidentiality of Alcohol and Drug Abuse Patient Records regulations: The Federal rules restrict any use of the information to criminally investigate or prosecute any alcohol or drug abuse patient.[facility] HospitalIn the event this information is protected by the Federal Confidentiality of Alcohol and Drug Abuse Patient Records regulations: The Federal rules restrict any use of the information to criminally investigate or prosecute any alcohol or drug abuse patient.[facility] HospitalIn the event this information is protected by the Federal Confidentiality of Alcohol and Drug Abuse Patient Records regulations: The Federal rules restrict any use of the information to criminally investigate or prosecute any alcohol or drug abuse patient.[facility] HospitalIn the event this information is protected by the Federal Confidentiality of Alcohol and Drug Abuse Patient Records regulations: The Federal rules restrict any use of the information to criminally investigate or prosecute any alcohol or drug abuse patient.[facility] HospitalIn the event this information is protected by the Federal Confidentiality of Alcohol and Drug Abuse Patient Records regulations: The Federal rules restrict any use of the information to criminally investigate or prosecute any alcohol or drug abuse patient.[facility] HospitalIn the event this information is protected by the Federal Confidentiality of Alcohol and Drug Abuse Patient Records regulations: The Federal rules restrict any use of the information to criminally investigate or prosecute any alcohol or drug abuse patient.[facility] HospitalIn the event this information is protected by the Federal Confidentiality of Alcohol and Drug Abuse Patient Records regulations: The Federal rules restrict any use of the information to criminally investigate or prosecute any alcohol or drug abuse patient.[facility] HospitalIn the event this information is protected by the Federal Confidentiality of Alcohol and Drug Abuse Patient Records regulations: The Federal rules restrict any use of the information to criminally investigate or prosecute any alcohol or drug abuse patient.[facility] HospitalIn the event this information is protected by the Federal Confidentiality of Alcohol and Drug Abuse Patient Records regulations: The Federal rules restrict any use of the information to criminally investigate or prosecute any alcohol or drug abuse patient.[facility] HospitalIn the event this information is protected by the Federal Confidentiality of Alcohol and Drug Abuse Patient Records regulations: The Federal rules restrict any use of the information to criminally investigate or prosecute any alcohol or drug abuse patient.[facility] HospitalIn the event this information is protected by the Federal Confidentiality of Alcohol and Drug Abuse Patient Records regulations: The Federal rules restrict any use of the information to criminally investigate or prosecute any alcohol or drug abuse patient.[facility] HospitalIn the event this information is protected by the Federal Confidentiality of Alcohol and Drug Abuse Patient Records regulations: The Federal rules restrict any use of the information to criminally investigate or prosecute any alcohol or drug abuse patient.[facility] HospitalIn the event this information is protected by the Federal Confidentiality of Alcohol and Drug Abuse Patient Records regulations: The Federal rules restrict any use of the information to criminally investigate or prosecute any alcohol or drug abuse patient.[facility] HospitalIn the event this information is protected by the Federal Confidentiality of Alcohol and Drug Abuse Patient Records regulations: The Federal rules restrict any use of the information to criminally investigate or prosecute any alcohol or drug abuse patient.[facility] HospitalIn the event this information is protected by the Federal Confidentiality of Alcohol and Drug Abuse Patient Records regulations: The Federal rules restrict any use of the information to criminally investigate or prosecute any alcohol or drug abuse patient.[facility] HospitalIn the event this information is protected by the Federal Confidentiality of Alcohol and Drug Abuse Patient Records regulations: The Federal rules restrict any use of the information to criminally investigate or prosecute any alcohol or drug abuse patient.[facility] HospitalIn the event this information is protected by the Federal Confidentiality of Alcohol and Drug Abuse Patient Records regulations: The Federal rules restrict any use of the information to criminally investigate or prosecute any alcohol or drug abuse patient.[facility] HospitalIn the event this information is protected by the Federal Confidentiality of Alcohol and Drug Abuse Patient Records regulations: The Federal rules restrict any use of the information to criminally investigate or prosecute any alcohol or drug abuse patient.[facility] HospitalIn the event this information is protected by the Federal Confidentiality of Alcohol and Drug Abuse Patient Records regulations: The Federal rules restrict any use of the information to criminally investigate or prosecute any alcohol or drug abuse patient.[facility] HospitalIn the event this information is protected by the Federal Confidentiality of Alcohol and Drug Abuse Patient Records regulations: The Federal rules restrict any use of the information to criminally investigate or prosecute any alcohol or drug abuse patient.[facility] HospitalIn the event this information is protected by the Federal Confidentiality of Alcohol and Drug Abuse Patient Records regulations: The Federal rules restrict any use of the information to criminally investigate or prosecute any alcohol or drug abuse patient.[facility] HospitalIn the event this information is protected by the Federal Confidentiality of Alcohol and Drug Abuse Patient Records regulations: The Federal rules restrict any use of the information to criminally investigate or prosecute any alcohol or drug abuse patient.[facility] HospitalIn the event this information is protected by the Federal Confidentiality of Alcohol and Drug Abuse Patient Records regulations: The Federal rules restrict any use of the information to criminally investigate or prosecute any alcohol or drug abuse patient.[facility] HospitalIn the event this information is protected by the Federal Confidentiality of Alcohol and Drug Abuse Patient Records regulations: The Federal rules restrict any use of the information to criminally investigate or prosecute any alcohol or drug abuse patient.[facility] HospitalIn the event this information is protected by the Federal Confidentiality of Alcohol and Drug Abuse Patient Records regulations: The Federal rules restrict any use of the information to criminally investigate or prosecute any alcohol or drug abuse patient.[facility] HospitalIn the event this information is protected by the Federal Confidentiality of Alcohol and Drug Abuse Patient Records regulations: The Federal rules restrict any use of the information to criminally investigate or prosecute any alcohol or drug abuse patient.[facility] HospitalIn the event this information is protected by the Federal Confidentiality of Alcohol and Drug Abuse Patient Records regulations: The Federal rules restrict any use of the information to criminally investigate or prosecute any alcohol or drug abuse patient.[facility] HospitalIn the event this information is protected by the Federal Confidentiality of Alcohol and Drug Abuse Patient Records regulations: The Federal rules restrict any use of the information to criminally investigate or prosecute any alcohol or drug abuse patient.[facility] HospitalIn the event this information is protected by the Federal Confidentiality of Alcohol and Drug Abuse Patient Records regulations: The Federal rules restrict any use of the information to criminally investigate or prosecute any alcohol or drug abuse patient.[facility] HospitalIn the event this information is protected by the Federal Confidentiality of Alcohol and Drug Abuse Patient Records regulations: The Federal rules restrict any use of the information to criminally investigate or prosecute any alcohol or drug abuse patient.[facility] HospitalIn the event this information is protected by the Federal Confidentiality of Alcohol and Drug Abuse Patient Records regulations: The Federal rules restrict any use of the information to criminally investigate or prosecute any alcohol or drug abuse patient.[facility] HospitalIn the event this information is protected by the Federal Confidentiality of Alcohol and Drug Abuse Patient Records regulations: The Federal rules restrict any use of the information to criminally investigate or prosecute any alcohol or drug abuse patient.[facility] HospitalIn the event this information is protected by the Federal Confidentiality of Alcohol and Drug Abuse Patient Records regulations: The Federal rules restrict any use of the information to criminally investigate or prosecute any alcohol or drug abuse patient.[facility] HospitalIn the event this information is protected by the Federal Confidentiality of Alcohol and Drug Abuse Patient Records regulations: The Federal rules restrict any use of the information to criminally investigate or prosecute any alcohol or drug abuse patient.[facility] HospitalIn the event this information is protected by the Federal Confidentiality of Alcohol and Drug Abuse Patient Records regulations: The Federal rules restrict any use of the information to criminally investigate or prosecute any alcohol or drug abuse patient.[facility] HospitalIn the event this information is protected by the Federal Confidentiality of Alcohol and Drug Abuse Patient Records regulations: The Federal rules restrict any use of the information to criminally investigate or prosecute any alcohol or drug abuse patient.[facility] HospitalIn the event this information is protected by the Federal Confidentiality of Alcohol and Drug Abuse Patient Records regulations: The Federal rules restrict any use of the information to criminally investigate or prosecute any alcohol or drug abuse patient.[facility] HospitalIn the event this information is protected by the Federal Confidentiality of Alcohol and Drug Abuse Patient Records regulations: The Federal rules restrict any use of the information to criminally investigate or prosecute any alcohol or drug abuse patient.[facility] HospitalIn the event this information is protected by the Federal Confidentiality of Alcohol and Drug Abuse Patient Records regulations: The Federal rules restrict any use of the information to criminally investigate or prosecute any alcohol or drug abuse patient.[facility] HospitalIn the event this information is protected by the Federal Confidentiality of Alcohol and Drug Abuse Patient Records regulations: The Federal rules restrict any use of the information to criminally investigate or prosecute any alcohol or drug abuse patient.[facility] HospitalIn the event this information is protected by the Federal Confidentiality of Alcohol and Drug Abuse Patient Records regulations: The Federal rules restrict any use of the information to criminally investigate or prosecute any alcohol or drug abuse patient.[facility] HospitalIn the event this information is protected by the Federal Confidentiality of Alcohol and Drug Abuse Patient Records regulations: The Federal rules restrict any use of the information to criminally investigate or prosecute any alcohol or drug abuse patient.[facility] HospitalIn the event this information is protected by the Federal Confidentiality of Alcohol and Drug Abuse Patient Records regulations: The Federal rules restrict any use of the information to criminally investigate or prosecute any alcohol or drug abuse patient.[facility] HospitalIn the event this information is protected by the Federal Confidentiality of Alcohol and Drug Abuse Patient Records regulations: The Federal rules restrict any use of the information to criminally investigate or prosecute any alcohol or drug abuse patient.[facility] HospitalIn the event this information is protected by the Federal Confidentiality of Alcohol and Drug Abuse Patient Records regulations: The Federal rules restrict any use of the information to criminally investigate or prosecute any alcohol or drug abuse patient.[facility] HospitalIn the event this information is protected by the Federal Confidentiality of Alcohol and Drug Abuse Patient Records regulations: The Federal rules restrict any use of the information to criminally investigate or prosecute any alcohol or drug abuse patient.[facility] HospitalIn the event this information is protected by the Federal Confidentiality of Alcohol and Drug Abuse Patient Records regulations: The Federal rules restrict any use of the information to criminally investigate or prosecute any alcohol or drug abuse patient.[facility] HospitalIn the event this information is protected by the Federal Confidentiality of Alcohol and Drug Abuse Patient Records regulations: The Federal rules restrict any use of the information to criminally investigate or prosecute any alcohol or drug abuse patient.[facility] HospitalIn the event this information is protected by the Federal Confidentiality of Alcohol and Drug Abuse Patient Records regulations: The Federal rules restrict any use of the information to criminally investigate or prosecute any alcohol or drug abuse patient.[facility] HospitalIn the event this information is protected by the Federal Confidentiality of Alcohol and Drug Abuse Patient Records regulations: The Federal rules restrict any use of the information to criminally investigate or prosecute any alcohol or drug abuse patient.[facility] HospitalIn the event this information is protected by the Federal Confidentiality of Alcohol and Drug Abuse Patient Records regulations: The Federal rules restrict any use of the information to criminally investigate or prosecute any alcohol or drug abuse patient.[facility] HospitalIn the event this information is protected by the Federal Confidentiality of Alcohol and Drug Abuse Patient Records regulations: The Federal rules restrict any use of the information to criminally investigate or prosecute any alcohol or drug abuse patient.[facility] HospitalIn the event this information is protected by the Federal Confidentiality of Alcohol and Drug Abuse Patient Records regulations: The Federal rules restrict any use of the information to criminally investigate or prosecute any alcohol or drug abuse patient.[facility] HospitalIn the event this information is protected by the Federal Confidentiality of Alcohol and Drug Abuse Patient Records regulations: The Federal rules restrict any use of the information to criminally investigate or prosecute any alcohol or drug abuse patient.[facility] HospitalIn the event this information is protected by the Federal Confidentiality of Alcohol and Drug Abuse Patient Records regulations: The Federal rules restrict any use of the information to criminally investigate or prosecute any alcohol or drug abuse patient.[facility] HospitalIn the event this information is protected by the Federal Confidentiality of Alcohol and Drug Abuse Patient Records regulations: The Federal rules restrict any use of the information to criminally investigate or prosecute any alcohol or drug abuse patient.[facility] HospitalIn the event this information is protected by the Federal Confidentiality of Alcohol and Drug Abuse Patient Records regulations: The Federal rules restrict any use of the information to criminally investigate or prosecute any alcohol or drug abuse patient.[facility] HospitalIn the event this information is protected by the Federal Confidentiality of Alcohol and Drug Abuse Patient Records regulations: The Federal rules restrict any use of the information to criminally investigate or prosecute any alcohol or drug abuse patient.[facility] HospitalIn the event this information is protected by the Federal Confidentiality of Alcohol and Drug Abuse Patient Records regulations: The Federal rules restrict any use of the information to criminally investigate or prosecute any alcohol or drug abuse patient.[facility] HospitalIn the event this information is protected by the Federal Confidentiality of Alcohol and Drug Abuse Patient Records regulations: The Federal rules restrict any use of the information to criminally investigate or prosecute any alcohol or drug abuse patient.[facility] HospitalIn the event this information is protected by the Federal Confidentiality of Alcohol and Drug Abuse Patient Records regulations: The Federal rules restrict any use of the information to criminally investigate or prosecute any alcohol or drug abuse patient.[facility] HospitalIn the event this information is protected by the Federal Confidentiality of Alcohol and Drug Abuse Patient Records regulations: The Federal rules restrict any use of the information to criminally investigate or prosecute any alcohol or drug abuse patient.[facility] HospitalIn the event this information is protected by the Federal Confidentiality of Alcohol and Drug Abuse Patient Records regulations: The Federal rules restrict any use of the information to criminally investigate or prosecute any alcohol or drug abuse patient.[facility] HospitalIn the event this information is protected by the Federal Confidentiality of Alcohol and Drug Abuse Patient Records regulations: The Federal rules restrict any use of the information to criminally investigate or prosecute any alcohol or drug abuse patient.[facility] HospitalIn the event this information is protected by the Federal Confidentiality of Alcohol and Drug Abuse Patient Records regulations: The Federal rules restrict any use of the information to criminally investigate or prosecute any alcohol or drug abuse patient.[facility] HospitalIn the event this information is protected by the Federal Confidentiality of Alcohol and Drug Abuse Patient Records regulations: The Federal rules restrict any use of the information to criminally investigate or prosecute any alcohol or drug abuse patient.[facility] HospitalIn the event this information is protected by the Federal Confidentiality of Alcohol and Drug Abuse Patient Records regulations: The Federal rules restrict any use of the information to criminally investigate or prosecute any alcohol or drug abuse patient.[facility] Reason for Visit (unrecogniz ed section [...] 30-39 MIN [facility] Miguelito Champion, DO [address] [place] [address] Miguelito Champion, [address] [place] [address] Referral ID Status Reason Start Date Expiration Date Visits Re quested Visits Authorized [id number] Closed 02/12/2021 02/11/2022 1 1 Reason Onset [...] By Contac t Referred To Contact [facility] Diagnoses Twin with single intrauterine , first trimester, fetus 1 (HCC) 13 weeks gestation of (HCC) Obesity affecting in second trimester, unspecified obesity type ([facility]) Procedures OBSTETRIC ULTRASOUND WHI US PREG UTERUS AFTER 1ST TRIMEST GESTATION Kristen Smith MD [address] [place] [address] Phone: tel: fax: [place] [phone] Referral ID Status Reason Start Date Expiration Date V isits Requested Visits Authorized [id number] Closed Auto-Generate d Referral 07/08/2024 07/08/2025 1 1 Reason Onset Date Comments Care 07/25/2024 Reason Comments US Specialty Diagnoses / Procedures Referred By Contac t Referred To Contact [facility] Diagnoses with uncertain dates in first trimester ([facility]) Procedures OBSTETRIC ULTRASOUND WHI US PREG UTERUS AFTER 1ST TRIMEST GESTATION Shiloh Westfall APRN.MIKE [address] [facility] [place] [address] Phone: tel: fax: [address] [phone] Referral ID Status Reason Start Date Expiration Date V isits Requested Visits Authorized [id number] Closed Auto-Generate d Referral 05/23/2024 05/23/2025 1 1 Reason Onset Date Comments Care 08/22/2024 Reason Onset Date Comments Care 10/15/2024 Specialty Diagnoses / Procedures Referred By Contac t Referred To Contact [facility] Diagnoses High-risk , multigravida of advanced maternal age, antepartum (HCC) 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 ([facility]) Class 2 obesity without serious comorbidity with body mass index (BMI) of 37.0 to 37.9 in adult, unspecified obesity type Procedures OBSTETRIC ULTRASOUND WHI US PREG UTERUS AFTER 1ST TRIMEST GESTATION Jossie Gonzales MD [address] [facility] [place] [address] Phone: tel: fax: [place] [phone] [facility] [place] [address] Referral ID Status Reason Start Date Expiration Date V isits Requested Visits Authorized [id number] Closed Auto-Generate d Referral 08/25/2024 08/25/2025 1 1 Reason Onset Date Comments Refill Request 10/11/2024 Reason Onset Date Comments Care 10/29/2024 Reason Comments Breast Pump RX Care Teams (unrecognized sec tion and content) Clinical Account Specialist Relationship Specialty Start Date End Date Miguelito Champion, DO [address] [facility] [place] [address] PCP - General Family Practice 11/26/15 Clinical Account Specialist Relationship Specialty Start Date End Date Miguelito Chamipon DO [address] [facility] [place] [address] PCP - General Family Practice 11/26/15 Clinical Account Specialist Relationship Specialty Start Date End Date Miguelito Champion DO [address] [facility] [place] [address] PCP - General Family Practice 11/26/15 Clinical Account Specialist Relationship Specialty Start Date End Date Miguelito Champion DO [address] [facility] [place] [address] PCP - General Family Practice 11/26/15 Clinical Account Specialist Relationship Specialty Start Date End Date Miguelito Champion DO [address] [facility] [place] [address] PCP - General Family Practice 11/26/15 Clinical Account Specialist Relationship Specialty Start Date End Date Miguelito Champion DO [address] [facility] [place] [address] PCP - General Family Practice 11/26/15 Clinical Account Specialist Relationship Specialty Start Date End Date Miguelito Champion DO [address] [place] [address] PCP - General Family Medicine 11/26/15 Clinical Account Specialist Relationship Specialty Start Date End Date Miguelito Champion DO [address] [facility] [place] [address] PCP - General Family Medicine 11/26/15 Clinical Account Specialist Relationship Specialty Start Date End Date Miguelito Champion DO [address] [place] [address] PCP - General Family Medicine 11/26/15 Clinical Account Specialist Relationship Specialty Start Date End Date Miguelito Champion DO [address] [place] [address] PCP - General Family Medicine 11/26/15 Clinical Account Specialist Relationship Specialty Start Date End Date Miguelito Champion DO [address] [place] [address] PCP - General Family Medicine 11/26/15 Clinical Account Specialist Relationship Specialty Start Date End Date Miguelito Champion DO [address] [place] [address] PCP - General Family Medicine 11/26/15 Clinical Account Specialist Relationship Specialty Start Date End Date Miguelito Champion DO [address] [place] [address] PCP - General Family Medicine 11/26/15 Clinical Account Specialist Relationship Specialty Start Date End Date Miguelito Champion DO [address] [place] [address] PCP - General Family Medicine 11/26/15 Clinical Account Specialist Relationship Specialty Start Date End Date Miguelito Champion DO [address] [place] [address] PCP - General Family Medicine 11/26/15 Clinical Account Specialist Relationship Specialty Start Date End Date Miguelito Champion DO [address] [facility] [place] [address] PCP - General Family Medicine 11/26/15 Clinical Account Specialist Relationship Specialty Start Date End Date Miguelito Champion DO [address] [facility] [place] [address] PCP - General Family Medicine 11/26/15 Clinical Account Specialist Relationship Specialty Start Date End Date Miguelito Champion DO [address] [facility] [place] [address] PCP - General Family Medicine 11/26/15 Clinical Account Specialist Relationship Specialty Start Date End Date Miguelito Champion DO [address] [facility] [place] [address] PCP - General Family Medicine 11/26/15 Clinical Account Specialist Relationship Specialty Start Date End Date Miguelito Champion DO [address] [facility] [place] [address] PCP - General Family Medicine 11/26/15 Clinical Account Specialist Relationship Specialty Start Date End Date Miguelito Champion DO [address] [facility] [place] [address] PCP - General Family Medicine 11/26/15 Clinical Account Specialist Relationship Specialty Start Date End Date Miguelito Champion DO [address] [facility] [place] [address] PCP - General Family Medicine 11/26/15 Clinical Account Specialist Relationship Specialty Start Date End Date Miguelito Champion DO [address] [place] [address] PCP - General Family Medicine 11/26/15 Clinical Account Specialist Relationship Specialty Start Date End Date Miguelito Champion DO [address] [place] [address] PCP - General Family Medicine 11/26/15 Karen Azar, PROPERTY INVESTOR.STATISTICAL PROGRAMMER ANALYST [address] [place] [address] Lokie Driver Family [facility] 01/20/24 ManjuHumberto, PROPERTY INVESTOR.STATISTICAL PROGRAMMER ANALYST [address] [place] [address] Lokie Driver [facility] 01/20/24 Clinical Account Specialist Relationship Specialty Start Date End Date Miguelito Champion DO [address] [place] [address] PCP - General Family Medicine 11/26/15 Karen Azar, PROPERTY INVESTOR.STATISTICAL PROGRAMMER ANALYST [address] [place] [address] Lokie Driver [facility] 01/20/24 ManjuHumberto, PROPERTY INVESTOR.STATISTICAL PROGRAMMER ANALYST [address] [place] [address] Lokie Driver [facility] 01/20/24 Clinical Account Specialist Relationship Specialty Start Date End Date Miguelito Champion DO [address] [place] [address] PCP - General Family Medicine 11/26/15 Karen Azar, PROPERTY INVESTOR.STATISTICAL PROGRAMMER ANALYST [address] [place] [address] Lokie Driver Family [facility] 01/20/24 Humberto Goldman, PROPERTY INVESTOR.STATISTICAL PROGRAMMER ANALYST [address] [facility] [place] [address] [facility] 01/20/24 Clinical Account Specialist Relationship Specialty Start Date End Date Miguelito Champion DO [address] [facility] [place] [address] PCP - General Family Medicine 11/26/15 Karen Azar, PROPERTY INVESTOR.STATISTICAL PROGRAMMER ANALYST [address] [facility] [place] [address] [facility] 01/20/24 Humberto Goldman, PROPERTY INVESTOR.STATISTICAL PROGRAMMER ANALYST [address] [facility] [place] [address] [facility] 01/20/24 Clinical Account Specialist Relationship Specialty Start Date End Date Miguelito Champion DO [address] [facility] [place] [address] PCP - General Family Medicine 11/26/15 Karen Azar, PROPERTY INVESTOR.STATISTICAL PROGRAMMER ANALYST [address] [place] [address] [facility] 01/20/24 Humberto Goldman, PROPERTY INVESTOR.STATISTICAL PROGRAMMER ANALYST [address] [facility] [place] [address] [facility] 01/20/24 Clinical Account Specialist Relationship Specialty Start Date End Date Miguelito Champion DO [address] [place] [address] PCP - General Family Medicine 11/26/15 Karen Azar, PROPERTY INVESTOR.STATISTICAL PROGRAMMER ANALYST [address] [facility] [place] [address] [facility]/24 Humberto Goldman, PROPERTY INVESTOR.STATISTICAL PROGRAMMER ANALYST [address] [facility] [place] [address] Lokie Driver [facility] 01/20/24 Clinical Account Specialist Relationship Specialty Start Date End Date Miguelito Champion DO [address] [facility] [place] [address] PCP - General Family Medicine 11/26/15 Humberto Goldman, PROPERTY INVESTOR.STATISTICAL PROGRAMMER ANALYST [address] [place] [address] [facility] 01/20/24 Clinical Account Specialist Relationship Specialty Start Date End Date Miguelito Champion DO [address] [place] [address] PCP - General Family Medicine 11/26/15 Humberto Goldman, PROPERTY INVESTOR.STATISTICAL PROGRAMMER ANALYST [address] [facility] [place] [address] [facility]/24 Clinical Account Specialist Relationship Specialty Start Date End Date Miguelito Champion DO [address] [place] [address] PCP - General Family Medicine 11/26/15 Humberto Goldman, PROPERTY INVESTOR.STATISTICAL PROGRAMMER ANALYST [address] [place] [address] [facility] 01/[facility]/24 Clinical Account Specialist Relationship Specialty Start Date End Date Miguelito Champion DO [address] [facility] [place] [address] PCP - General Family Medicine 11/26/15 ManjuHumberto, PROPERTY INVESTOR.STATISTICAL PROGRAMMER ANALYST [address] [facility] [place] [address] Lokie Driver Family [facility] 01/20/24 Clinical Account Specialist Relationship Specialty Start Date End Date Miguelito Champion DO [address] [facility] [place] [address] PCP - General Family Medicine 11/26/15 ManjuHumberto, PROPERTY INVESTOR.STATISTICAL PROGRAMMER ANALYST [address] [facility] [place] [address] Lokie Driver Family [facility] 01/20/24 Clinical Account Specialist Relationship Specialty Start Date End Date Miguelito Champion DO [address] [facility] [place] [address] PCP - General Family Medicine 11/26/15 ManjuHumberto, PROPERTY INVESTOR.STATISTICAL PROGRAMMER ANALYST [address] [facility] [place] [address] Lokie Driver Family [facility] 01/20/24 Clinical Account Specialist Relationship Specialty Start Date End Date Miguelito Champion DO [address] [facility] [place] [address] PCP - General Family Medicine 11/26/15 ManjuHumberto, PROPERTY INVESTOR.STATISTICAL PROGRAMMER ANALYST [address] [facility] [place] [address] Lokie Driver Family Medicine 01/20/24 Clinical Account Specialist Relationship Specialty Start Date End Date Miguelito Champion DO [address] [facility] [place] [address] PCP - General Family Medicine 11/26/15 Humberto Goldman, PROPERTY INVESTOR.STATISTICAL PROGRAMMER ANALYST [address] [facility] [place] [address] Lokie Driver Family [facility] 01/20/24 Clinical Account Specialist Relationship Specialty Start Date End Date Miguelito Champion DO [address] [facility] [place] [address] PCP - General Family Medicine 11/26/15 Humberto Goldman, PROPERTY INVESTOR.STATISTICAL PROGRAMMER ANALYST [address] [facility] [place] [address] Lokie Driver Family Medicine 01/20/24 Clinical Account Specialist Relationship Specialty Start Date End Date Miugelito Champion DO [address] [facility] [place] [address] PCP - General Family Medicine 11/26/15 Humberto Goldman, PROPERTY INVESTOR.STATISTICAL PROGRAMMER ANALYST [address] [facility] [place] [address] Lokie Driver Family Medicine 01/20/24 Kendal Oro, PROPERTY INVESTOR.STATISTICAL PROGRAMMER ANALYST [address] [place] [address] Lokie Driver Family [facility] 07/28/24 Clinical Account Specialist Relationship Specialty Start Date End Date Miguelito Champion DO [address] [facility] [place] [address] PCP - General Family Medicine 11/26/15 Humberto Goldman, PROPERTY INVESTOR.STATISTICAL PROGRAMMER ANALYST [address] [place] [address] Lokie Driver Family Medicine 01/20/24 Kendal Oro, PROPERTY INVESTOR.STATISTICAL PROGRAMMER ANALYST [address] [place] [address] Lokie Driver Family Medicine 07/28/24 Clinical Account Specialist Relationship Specialty Start Date End Date Miguelito Champion DO [address] [place] [address] PCP - General Family Medicine 11/26/15 Humberto Goldman, PROPERTY INVESTOR.STATISTICAL PROGRAMMER ANALYST [address] [place] [address] Lokie Driver Family Medicine 01/20/24 Kendal Oro, PROPERTY INVESTOR.STATISTICAL PROGRAMMER ANALYST [address] [place] [address] Lokie Driver Family Medicine 07/28/24 Clinical Account Specialist Relationship Specialty Start Date End Date Miguelito Champion DO [address] [place] [address] PCP - General Family Medicine 11/26/15 Humberto Goldman, PROPERTY INVESTOR.STATISTICAL PROGRAMMER ANALYST [address] [place] [address] Lokie Driver Family Medicine 01/20/24 Kendal Oro, PROPERTY INVESTOR.STATISTICAL PROGRAMMER ANALYST [address] [place] [address] Lokie Driver Family Medicine 07/28/24 Clinical Account Specialist Relationship Specialty Start Date End Date Miguelito Champion DO [address] [place] [address] PCP - General Family Medicine 11/26/15 Humberto Goldman, PROPERTY INVESTOR.STATISTICAL PROGRAMMER ANALYST [address] [place] [address] Lokie Driver Family Medicine 01/20/24 Kendal Oro, PROPERTY INVESTOR.STATISTICAL PROGRAMMER ANALYST [address] [place] [address] Lokie Driver Family Medicine 07/28/24 Clinical Account Specialist Relationship Specialty Start Date End Date Miguelito Champion DO [address] [place] [address] PCP - General Family Medicine 11/26/15 Humberto Goldman, PROPERTY INVESTOR.STATISTICAL PROGRAMMER ANALYST [address] [place] [address] Lokie Driver Family Medicine 01/20/24 Kendal Oro, PROPERTY INVESTOR.STATISTICAL PROGRAMMER ANALYST [address] [place] [address] Lokie Driver Family Medicine 07/28/24 Clinical Account Specialist Relationship Specialty Start Date End Date Miguelito Champion DO [address] [place] [address] PCP - General Family Medicine 11/26/15 Humberto Goldman, PROPERTY INVESTOR.STATISTICAL PROGRAMMER ANALYST [address] [place] [address] Lokie Driver Family Medicine 01/20/24 Kendal Oro, PROPERTY INVESTOR.STATISTICAL PROGRAMMER ANALYST [address] [place] [address] Lokie Driver Family Medicine 07/28/24 Clinical Account Specialist Relationship Specialty Start Date End Date Miguelito Champion DO [address] [place], [place] [address] PCP - General Family Medicine 11/26/15 Humberto Goldman, PROPERTY INVESTOR.STATISTICAL PROGRAMMER ANALYST [address] [place], [place] [address] [facility] 01/20/24 Kendal Oro, PROPERTY INVESTOR.STATISTICAL PROGRAMMER ANALYST [address] [place], [place] [address] [facility] 07/28/24 Clinical Account Specialist Relationship Specialty Start Date End Date Miguelito Champion DO [address] [place] [address] PCP - General Family Medicine 11/26/15 Humberto Goldman, PROPERTY INVESTOR.STATISTICAL PROGRAMMER ANALYST [address] [place] [address] [facility] 01/20/24 Kendal Oro, PROPERTY INVESTOR.STATISTICAL PROGRAMMER ANALYST [address] [place], [place] [address] [facility] 07/28/24 INFORMATION SOURCE (unrecogn ized section and content) DATE CREATED AUTHOR 12/25/2024 [facility] DATE CREATED AUTHOR AUTHOR'S ORGANIZ ATION 12/25/2024 [facility] FOR RECORDS PERTAINING TO PATIENTS WHO ARE [...] BE BASED ON THE PRIMARY CLINICAL RECORDS. [facility] [employer] [facility]. provides no warranty or guarantee of the accuracy or completeness of information in this document.
[2025-01-01 06:01] LABS: Hematocrit 42.5 % (37-47); Hemoglobin 14.7 g/dL (12.0-15.0); Immature Granulocytes Count 0.080 X10^3/uL (0.0-0.0); Mean Corp Hgb Conc 34.6 g/dL (32-36); Mean Corpuscular Volume 82.0 fL (81-99); Mean Platelet Vol. 9.5 fl (6.2-12.0); NRBC Flagged by Analyzer 0 % (0-5); Platelet Count 230 K/mm3 (150-450); RBC Distribution Width CV 13.2 % (11.6-14.6); RBC Distribution Width SD 38.9 fl (35.1-43.9); Red Blood Count 5.18 M/mm3 (4.2-5.4); White Blood Count 14.5 K/mm3 (4.4-11.0)
[2025-01-01 06:30] LABS: Syphilis Antibodies Nonreactive (Nonreactive)
--- NOTE | 2025-01-01 08:56 | PCM.HP.OB ---
HPI - General General Date of Admission: 01/01/25 Date of Service: 01/01/25 HPI Narrative CECILIO HAYES, is a 34 F who presents with contractions. Maternal Data Information VENICE Calculator Estimated Delivery Date Method Current WG Current Estimate 01/07/25 Manual 39w 1d [facility] Medical History (Updated 01/01/25 @ 09:[address] Chevy Dean MD) Vitamin D deficiency Luigi's disease Hypothyroidism affecting Home Medications ?Medication ?Instructions ?Recorded ?Last Taken ?Type vits,calcium no.78-iron 1 tab PO DAILY pergnancy 06/24/14 12/31/24 19:00 History fumarate-folic acid 29 mg-1 mg 1 TAB tablet (Prenatabs FA) thyroid (pork) 120 mg tablet 120 mg PO DAILY hypothyroid 07/08/19 12/31/24 07:00 History 120 mg thyroid (pork) 60 mg tablet (AIRLINE LOUNGE RECEPTIONIST 60 mg PO DAILY hypothyroid 12/31/24 12/31/24 History Thyroid) aspirin 81 mg capsule 81 mg PO DAILY 01/01/25 12/31/24 19:00 History 81 mg Allergy/AdvReac Type Severity Reaction Status Date / Time latex Allergy Rash Verified 12/31/24 22:37 venom-honey bee (bee venom Allergy Swelling Verified 12/31/24 22:37 (honey bee)) Surgical History [place] teeth removed History of D&C Social History Smoking Status: Never smoker History Elective abortions Hx Para 2 Spontaneous abortions Hx # Term Pregnancies Ectopic pregnancies Hx # Pregnancies Multiple births # of living children Vital Signs Vital Signs Vital Signs: 01/01/25 00:34 01/01/25 00:34 01/01/25 00:34 Temperature 97.2 F L Temperature Source Pulse Rate 90 Respiratory Rate Blood Pressure 117/69 BP Systolic 117 BP Diastolic 69 Pulse Ox 01/01/25 00:34 01/01/25 00:34 01/01/25 00:34 Temperature Temperature Source Pulse Rate 84 Respiratory Rate 16 Blood Pressure BP Systolic BP Diastolic Pulse Ox 96 01/01/25 04:35 01/01/25 04:35 01/01/25 04:35 Temperature Temperature Source Temporal Pulse Rate 110 H Respiratory Rate 16 Blood Pressure BP Systolic BP Diastolic Pulse Ox 01/01/25 04:35 01/01/25 04:35 01/01/25 04:36 Temperature 99.3 F H Temperature Source Pulse Rate Respiratory Rate Blood Pressure 115/68 BP Systolic 115 BP Diastolic 68 Pulse Ox 96 01/01/25 04:36 01/01/25 08:08 01/01/25 08:08 Temperature Temperature Source Pulse Rate 96 92 Respiratory Rate Blood Pressure 122/76 H BP Systolic 122 BP Diastolic 76 Pulse Ox 01/01/25 08:08 01/01/25 08:08 01/01/25 08:08 Temperature Temperature Source Temporal Pulse Rate Respiratory Rate 16 Blood Pressure BP Systolic BP Diastolic Pulse Ox 97 01/01/25 08:08 Temperature 99.1 F Temperature Source Pulse Rate Respiratory Rate Blood Pressure BP Systolic BP Diastolic Pulse Ox Weight Weight: 243 lb Body Mass Index (BMI) 40.4 PRE- weight 213 lb PRE- Body Mass Index 35.4 (BMI) Physical Exam Const alert, oriented x3 and no apparent distress Chest inspection of chest normal GI non-tender, non-distended and no masses Inspection: gravid external exam normal Narrative: cvx - 4/70/-2, AROM thin meconium fluid Labs Labs Labs: Blood Type A NEGATIVE Antibody Screen NEGATIVE Hct, (37-47) 42.5 % Hgb, (12.0-15.0) 14.7 g/dL Syphilis Total Ab, (Nonreactive) Nonreactive Rhogam given: Yes Assessment & Plan (1) 39 weeks gestation of : PLAN: Plan Admit to L&D Expectant management EFW - less than 4500g, patient with adequate pelvis GBS negative Declines epidural at this time
[2025-01-01] MEDS: 0.9% Saline Lock 10 ML Syringe IV (11:14)
[2025-01-01] MEDS: Oxytocin 15 Units/NS 250ml 15 UNITS/250 ML IV.SOLN 334 UNITS IV (11:14)
--- NOTE | 2025-01-01 11:20 | OB.VAGDELI_ITS ---
Maternal Data Information VENICE Calculator Estimated Delivery Date Method Current WG Current Estimate 01/07/25 Manual 39w 1d Final VENICE Source: US <20 weeks Gestational age: 39 weeks Vaginal Delivery Maternal Presentation Maternal Presentation: Active Labor Vaginal Delivery Information Procedure Performed: Spontaneous Vaginal Delivery Surgeon/Practitioner: Lianna Humphries Date of Procedure: 01/01/25 Pre-Procedure Diagnosis: 39 weeks, obesity in , hypothyroidism, GBS + Post-Procedure Diagnosis: Same, live female infant Type of anesthesia: None Estimated Blood Loss: 50 Time of Delivery: 11:10 Findings Description of procedure: I was called for imminent delivery-Dr. Dean was enroute for delivery- when I arrived in the room patient was unable to stop pushing head was on the perineum. At this time patient was instructed to push however she was still trying not to the head was delivered and at this time there was no immediate delivery of the shoulders however again the patient was not pushing effectively. At this time we instructed the patient to bring her legs back and to push at that time the anterior shoulder was delivered followed by the rest of the 's body without complication. The infant was placed on the maternal chest for immediate skin to skin. Delayed cord clamping was performed. Pitocin was started and the placenta delivered intact without complication. Perineum and vagina were intact. Presentation: Vertex Amniotic Membrane Rupture Type: Artificial Amniotic Fluid Description: Lightly stained meconium Placental Delivery Description: Spontaneous Placenta Disposition: [facility] Specimen collected: No Cord Vessel Description: 3 Vessels Cord Entanglement: None A Gender: Female (1 minute): 8 (5 minute): 9 Delayed Cord Clamping: Yes Poly Area Supervisor home office claim specialist: No Post Vaginal Deli Medications given after delivery: IV Pitocin Episiotomy Description: None Laceration: None Complication Complications: No
[2025-01-01] MEDS: Oxytocin 15 Units/NS 250ml 15 UNITS/250 ML IV.SOLN 83 UNITS IV (11:45)
[2025-01-02 03:18] VITALS: BP 103/56; PULSE 84; RESP 16; TEMP 37.4; O2SAT 97
[2025-01-02 03:19] VITALS: BP 103/56; PULSE 94; O2SAT 96
--- NOTE | 2025-01-02 08:43 | PCM.PN.OB ---
Subjective Subjective Patient is doing well this morning and offers no complaints. She desires discharge home. She denies chest pain, shortness of breath, lightheadedness, dizziness. Lochia has been normal. She is ambulating and voiding without difficulty. She is tolerating a diet without nausea or vomiting. She is breast-feeding without complaints. Objective Data Objective Data Vital Signs: Vital Signs Temp Pulse Resp BP Pulse Ox O2 Del Method 99.3 F H 94 16 103/56 L 96 Room Air 01/02/25 03:18 01/02/25 03:19 01/02/25 03:18 01/02/25 03:19 01/02/25 03:19 01/01/25 23:13 Oxygen Delivery Method Room Air Weight: 243 lb Body Mass Index (BMI) 40.4 Intake & Output: Intake and Output for Last 24 Hours 12/31/24 01/01/25 01/02/25 23:59 23:59 23:59 Intake Total 422.57 / 422.57 Output Total 50 / 50 Balance 372.57 / 372.57 Lab / Micro Data 01/01/25 05:45 Physical Exam Const alert and no apparent distress Constitutional Narrative: Holding infant and eating breakfast General Appearance: comfortable Assessment & Plan (1) Vaginal delivery: PLAN: Patient is day 1 from a vaginal delivery. She is doing well and desires discharge. Discharge instructions reviewed.
--- NOTE | 2025-01-02 08:45 | PCM.DC ---
Discharge Instructions DC O2, CPAP, BIPAP needs Home O2 Discharge instructions: No Dressing / Incision Discharge Activity: May Drive and May Shower May resume sexual activity in: 6 weeks Dressing / Incision Call your doctor if you observe: Fever of 101 or Higher, Inability to have a bowel movement, Using more than 1 pad per hour, Shortness of breath, Dizziness, Swelling in the ankles, Chest pain, Increased palpitations (irregular heartbeat), Calf discomfort and Uncontrolled pain Follow Up Care Please Follow Up With: Lianna Humphries MD When: 1 week early 6 week exam Test Results: Test results from this visit will be discussed in further detail at your follow-up appointment, if applicable. Discharge Plan Admission Admit Date/Time: 01/01/25 05:15 Primary Reason for Your Visit: delivery Attending Provider: Lianna Humphries Primary Care Provider: Miguelito Champion Instructions Patient Instructions: After a Vaginal Delivery (WP) Discharge Orders/Prescriptions Prescriptions: Continued Prenatabs FA 1 TABLET tablet 1 tab PO DAILY thyroid (pork) 120 MG tablet 120 mg PO DAILY Patient Comments: On Sunday, Sunday, , Sunday, and Sundays. thyroid (pork) [ENGAGEMENT LEAD Thyroid] 60 mg tablet 60 mg PO DAILY Patient Comments: Sunday and Wednesdays Discontinued aspirin 81 mg capsule 81 mg PO DAILY Referrals / Follow Up: Miguelito Champion DO [Primary Care Provider, Medical] Disposition Disposition (needs filled in before D/C Order can be placed): Home, Self Care
[2025-01-02 08:52] VITALS: BP 121/59; PULSE 90; RESP 16; TEMP 37.4
[2025-01-02 14:09] VITALS: BP 128/66; PULSE 81; RESP 16; TEMP 37.2
== END 2025-01-02 15:55 | disposition home or self-care (01) | DRG 807 ==
LOC: WPOUT 05:18 → WP 05:27
PROVIDERS: Obstetrics & Gynecology; Admitting Provider Obstetrics & Gynecology; PCP Student in an Organized Health Care Education/Training Program; Referring Provider Obstetrics & Gynecology; Visit Provider Obstetrics & Gynecology
DX: O99.214 Obesity complicating childbirth (principal); Z37.0 Single live birth; E03.9 Hypothyroidism, unspecified; O77.0 Labor and delivery complicated by meconium in amniotic fluid; O99.284 Endocrine, nutritional and metabolic diseases complicating childbirth; Z3A.39 39 weeks gestation of pregnancy
CPT/HCPCS: 59025; 59050; 85025; 86780; 86850; 86900; 86901; 99221; A4216; G0378